=== PATIENT | female | born 1960 | race Caucasian/White ===

== ENCOUNTER → 2017-06-08 09:49 | Outpatient (CLI) | payer BC, SELFPAY ==
[2017-06-08 10:43] LABS: Hematocrit 34.9 % (37-47); Hemoglobin 11.5 g/dl (12.0-15.0); Mean Corpuscular Hgb 28.8 pg (27.0-32.0); Mean Corpuscular Volume 87.3 fL (81-99); Mean Platelet Vol. 11.4 fl (6.2-12.0); Platelet Count 306 K/mm3 (150-450); RBC Distribution Width CV 13.7 % (11.6-14.6); RBC Distribution Width SD 42.4 fl (35.1-43.9); White Blood Count 8.5 K/mm3 (4.4-11.0)
[2017-06-08 10:44] LABS: Scan Indicated on CBC? Y/N NO
[2017-06-08 11:10] LABS: Creatinine, Urine (random) < 13.00 mg/dL (NO RANGE EST.)
[2017-06-08 11:24] LABS: Albumin, Serum 3.8 g/dL (3.2-5.0); BUN 25 mg/dL (7-18); BUN/Creat Ratio 11.5 RATIO (10-20); Calcium,Total 9.1 mg/dL (8.5-10.1); Chloride 98 mmol/L (98-107); Creatinine, Serum 2.17 mg/dL (0.55-1.02); EST Glomerular Filtration Rate 25 mL/min (>60); Est Glom Filt Rate - Afr Amer 30 mL/min (>60); Glucose 94 mg/dL (74-106); Magnesium 1.6 mg/dL (1.6-2.6); Potassium 4.6 mmol/L (3.5-5.1); Sodium Level 132 mmol/L (136-145)
[2017-06-08 11:29] LABS: Vitamin D,25 Hydroxy 21.2 ng/mL (19.95-100.01)
[2017-06-08 11:30] LABS: PTHIN 190.4 pg/mL (18.4-80.1)
== END ==
PROVIDERS: Family Provider Family Medicine; PCP Family Medicine; Visit Provider Internal Medicine Nephrology
DX: N18.4 Chronic kidney disease, stage 4 (severe) (principal); D63.1 Anemia in chronic kidney disease; N25.81 Secondary hyperparathyroidism of renal origin; E83.42 Hypomagnesemia
CPT/HCPCS: 36415; 80069; 82043; 82306; 82570; 83735; 83970; 85027

== ENCOUNTER → 2017-11-08 08:40 | Outpatient (CLI) | payer BC, SELFPAY ==
[2017-11-08 09:11] LABS: Hematocrit 31.4 % (37-47); Hemoglobin 10.1 g/dl (12.0-15.0); Mean Corp Hgb Conc 32.2 g/gl (32-36); Mean Corpuscular Hgb 27.1 pg (27.0-32.0); Mean Corpuscular Volume 84.2 fL (81-99); Mean Platelet Vol. 10.4 fl (6.2-12.0); Platelet Count 362 K/mm3 (150-450); RBC Distribution Width CV 13.1 % (11.6-14.6); RBC Distribution Width SD 39.9 fl (35.1-43.9); Red Blood Count 3.73 M/mm3 (4.2-5.4); Scan Indicated on CBC? Y/N NO; White Blood Count 8.7 K/mm3 (4.4-11.0)
[2017-11-08 09:28] LABS: Creatinine, Urine (random) < 13.00 mg/dL (NO RANGE EST.); Protein, Urine (Random) 25.8 mg/dL (<11.9)
[2017-11-08 10:03] LABS: Albumin, Serum 3.5 g/dL (3.2-5.0); BUN 16 mg/dL (7-18); BUN/Creat Ratio 7.7 RATIO (10-20); Calcium,Total 7.9 mg/dL (8.5-10.1); Chloride 104 mmol/L (98-107); Creatinine, Serum 2.09 mg/dL (0.55-1.02); EST Glomerular Filtration Rate 26 mL/min (>60); Est Glom Filt Rate - Afr Amer 32 mL/min (>60); Glucose 78 mg/dL (74-106); Magnesium 0.7 mg/dL (1.6-2.6); Phosphorus 2.5 mg/dL (2.5-4.9); Potassium 3.6 mmol/L (3.5-5.1); Sodium Level 136 mmol/L (136-145)
[2017-11-09 09:06] LABS: Vitamin D,25 Hydroxy 39.3 ng/mL (29.95-100.01)
== END ==
PROVIDERS: Family Provider Family Medicine; PCP Family Medicine; Visit Provider Internal Medicine Nephrology
DX: N18.4 Chronic kidney disease, stage 4 (severe) (principal); D63.1 Anemia in chronic kidney disease; N25.81 Secondary hyperparathyroidism of renal origin; E83.42 Hypomagnesemia
CPT/HCPCS: 36415; 80069; 82306; 82570; 83735; 83970; 84156; 85027

== ENCOUNTER → 2017-11-18 08:28 | Outpatient (CLI) | payer BC, SELFPAY ==
[2017-11-18 10:37] LABS: Albumin, Serum 3.8 g/dL (3.2-5.0); BUN 34 mg/dL (7-18); BUN/Creat Ratio 15.2 RATIO (10-20); Calcium,Total 9.7 mg/dL (8.5-10.1); Chloride 105 mmol/L (98-107); Creatinine, Serum 2.23 mg/dL (0.55-1.02); EST Glomerular Filtration Rate 24 mL/min (>60); Est Glom Filt Rate - Afr Amer 29 mL/min (>60); Glucose 109 mg/dL (74-106); Magnesium 0.5 mg/dL (1.6-2.6); Potassium 3.7 mmol/L (3.5-5.1); Sodium Level 141 mmol/L (136-145)
== END ==
PROVIDERS: Family Provider Family Medicine; PCP Family Medicine; Visit Provider Internal Medicine Nephrology
DX: N05.1 Unspecified nephritic syndrome with focal and segmental glomerular lesions (principal)
CPT/HCPCS: 36415; 80069; 83735

== ENCOUNTER 2017-11-22 01:45 | Emergency (ER) | payer BC, SELFPAY ==
[2017-11-22 01:48] VITALS: BP 187/106; PULSE 82; RESP 18; TEMP 36.4; O2SAT 97; BMI 38.5
--- NOTE | 2017-11-22 02:07 | EKG12_ITS ---
Test Reason : DIZZYNESS Blood Pressure : / mmHG Vent. Rate : 065 BPM Atrial Rate : 065 BPM P-R Int : 146 ms QRS Dur : 084 ms QT Int : 394 ms P-R-T Axes : -01 -03 012 degrees QTc Int : 409 ms Normal sinus rhythm Normal ECG Confirmed by KRZYSZTOF ANTHONY, CELI ([id number]), associate entertainment editor LUISA XIE ([id number] on 11/24/2017 9:55:22 AM Referred By: Dania Falcon Confirmed By:CELI BLANKENSHIP MD
--- NOTE | 2017-11-22 02:17 | ED.DCSUM_ITS ---
- ER Visit Summary Date of Service: 11/22/17 Chief Complaint: Palpitations History of Present Illness: The patient is a 57 F after awakening at 8 PM this evening woke up with palpitations while walking fell off balance. No dizzy or spinning sensations. No chest pains. No syncopal episodes. No recent vomiting or diarrhea. States that urine frequency. No dysuria. Concerns positive that she has low magnesium. Found to have a magnesium 0.6 on the followed by Dr. Moreno from routine blood draws. She is asymptomatic. Placed on magnesium 3 times a day, recheck blood 3 days ago states magnesium 0.4. She was admitted overnight at [facility]. She is IV magnesium discharge and magnesium 2.0. She still is on magnesium replacement. She had transient tremors. Physical Examination: General: Alert and oriented ?3, no acute distress HEENT: Normocephalic, atraumatic. Moist mucosa membranes Neck: supple, nontender. Cardiovascular: Regular rate and rhythm, no murmurs Respiratory: Normal breath sounds, symmetric, no distress Abdomen: Soft, nontender, nondistended Extremities: Nontender, no edema, pulses intact ?4 Neuro: no focal neurological deficits. Test Results: EKG sinus rate of [address] changes. Flattening T waves in leads III. QTc 409. Hemoglobin 12. Creatinine 2.32. Potassium 5. Magnesium 2.7. Urine notes no infection. Emergency Department Course and Treatment: Patient given IV fluids, labs stable. Creatinine 2.32 today. Range from 2.09-2.23. Magnesium 2.7. Hemoglobin stable. Reevaluation patient ambulate department with no difficulties. Discussed with patient decrease her magnesium to twice a day from 3 times a day. 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 She will monitor for any recurrent tremors, likely a sympathetic response. She did have palpitations with her symptoms, normal EKG. Treatment Plan: [] Disposition: Discharge Impression: 1. Near syncope 2. Chronic kidney disease 3. Elevated blood pressure This note was generated with [employer] software. It may contain incorrect words, spelling, and punctuation that were not noted in review of the chart prior to signing ED Disposition - Plan for ED Patient: Disposition: Home or Assisted Living Chief Complaint: Dizziness Diagnosis: Near syncope, Chronic kidney disease, Elevated blood pressure Instructions: ED Near Syncope Vasovagal Referrals: Monster Freire MD [Primary Care Provider] - Henrique Clifton [NON-STAFF] - 3-5 Days Additional Instructions: Magnesium 2.7. Decrease your magnesium to twice a day. Creatinine today 2.32. Elevated blood pressure, check blood pressures at home, call Dr. Moreno for follow-up and adjustment of medications as needed.
[2017-11-22 02:56] LABS: Absolute Lymphocyte Count 2.02 X10^3/ul (0.83-4.51); Absolute Neutrophil Count 4.4 X10^3/uL (2.0-7.7); Basophil# 0.04 X10^3/uL; Basophil% 0.6 % (0-1); Eosinophil# 0.11 X10^3/uL; Eosinophils% 1.5 % (0-5); Hematocrit 36.7 % (37-47); Lymphocyte # 2.02 X10^3/ul (4.0); Lymphocyte % 28.4 % (19-41); Mean Corp Hgb Conc 32.7 g/gl (32-36); Mean Corpuscular Hgb 27.5 pg (27.0-32.0); Mean Platelet Vol. 11.3 fl (6.2-12.0); Monocyte# 0.52 X10^3/uL; Monocyte% 7.3 % (0-10); Neutrophil # 4.41 X10^3/uL (2.7-7.7); Neutrophil % 62.1 % (47-70); Platelet Count 358 K/mm3 (150-450); RBC Distribution Width CV 12.8 % (11.6-14.6); RBC Distribution Width SD 39.1 fl (35.1-43.9); Red Blood Count 4.37 M/mm3 (4.2-5.4); White Blood Count 7.1 K/mm3 (4.4-11.0)
[2017-11-22 03:01] LABS: POSITIVE COUNT NO; POSITIVE DIFFERENTIAL NO; POSITIVE MORPHOLOGY NO
[2017-11-22 03:10] LABS: Anion Gap 9 (5-15); BUN 30 mg/dL (7-18); BUN/Creat Ratio 12.9 RATIO (10-20); Calcium,Total 10.5 mg/dL (8.5-10.1); Chloride 105 mmol/L (98-107); Creatinine, Serum 2.32 mg/dL (0.55-1.02); EST Glomerular Filtration Rate 23 mL/min (>60); Est Glom Filt Rate - Afr Amer 28 mL/min (>60); Estimated Creatinine Clearance 22.66 ml/min; Glucose 97 mg/dL (74-106); Magnesium 2.7 mg/dL (1.6-2.6); Sodium Level 138 mmol/L (136-145)
[2017-11-22] MEDS: 0.9% Normal Saline 1,000 ML 1000 ML IV (03:11)
[2017-11-22 03:30] LABS: Bacteria 0 SEEN /hpf (None Seen); Mucous, Urine 0 SEEN /hpf (<or=2+); Red Blood Cells-Urine 0 SEEN /hpf (0-5); White Blood Cells 0 SEEN /hpf (0-5)
[2017-11-22 03:33] LABS: Color, Urine Yellow (Yellow); Glucose, Dipstick Normal (Normal); Ketone-Dipstick Negative (Negative); Leukocyte Esterase-Dipstick Negative /ul (Negative); Nitrite-Dipstick Negative (Negative); Occult Blood-Urine 10 /ul (Negative); Protein-Dipstick 100 mg/dl (Negative); Urine Bilirubin Dipstick Negative (Negative); Urine Clarity Clear (Clear); Urine Urobilinogen Normal (Normal)
[2017-11-22 03:39] LABS: Squamous Epithelial Cells - UA 0-5 SEEN /hpf (5-10)
[2017-11-22 04:30] VITALS: BP 150/96; PULSE 69; RESP 18; O2SAT 96
== END 2017-11-22 04:31 | disposition home or self-care (01) ==
PROVIDERS: Emergency Provider Emergency Medicine; Family Provider Family Medicine; PCP Family Medicine
DX: R55 Syncope and collapse (principal); I12.9 Hypertensive chronic kidney disease with stage 1 through stage 4 chronic kidney disease, or unspecified chronic kidney disease; N18.9 Chronic kidney disease, unspecified; E83.42 Hypomagnesemia; E03.9 Hypothyroidism, unspecified; K21.9 Gastro-esophageal reflux disease without esophagitis; Z72.0 Tobacco use; Z79.899 Other long term (current) drug therapy
CPT/HCPCS: 80048; 81001; 83735; 85025; 93005; 99284; J7030; A4216

== ENCOUNTER → 2018-04-03 09:40 | Outpatient (CLI) | payer BC, SELFPAY ==
[2018-04-03 10:22] LABS: Hematocrit 29.1 % (37-47); Hemoglobin 9.2 g/dl (12.0-15.0); Mean Corp Hgb Conc 31.6 g/gl (32-36); Mean Corpuscular Hgb 28.4 pg (27.0-32.0); Mean Corpuscular Volume 89.8 fL (81-99); Mean Platelet Vol. 10.8 fl (6.2-12.0); Platelet Count 358 K/mm3 (150-450); RBC Distribution Width CV 14.7 % (11.6-14.6); RBC Distribution Width SD 47.2 fl (35.1-43.9); Red Blood Count 3.24 M/mm3 (4.2-5.4); White Blood Count 8.4 K/mm3 (4.4-11.0)
[2018-04-03 10:23] LABS: Scan Indicated on CBC? Y/N NO
[2018-04-03 10:44] LABS: Microalbumin:Creatinine Ratio 681.3 mg/g CRE (<30 mg/g CRE)
[2018-04-03 10:52] LABS: Albumin, Serum 3.8 g/dL (3.2-5.0); BUN 38 mg/dL (7-18); BUN/Creat Ratio 9.2 RATIO (10-20); Calcium,Total 9.7 mg/dL (8.5-10.1); Chloride 104 mmol/L (98-107); Creatinine, Serum 4.13 mg/dL (0.55-1.02); EST Glomerular Filtration Rate 12 mL/min (>60); Est Glom Filt Rate - Afr Amer 14 mL/min (>60); Glucose 88 mg/dL (74-106); Magnesium 1.7 mg/dL (1.6-2.6); Phosphorus 4.6 mg/dL (2.5-4.9); Potassium 4.5 mmol/L (3.5-5.1); Sodium Level 135 mmol/L (136-145)
[2018-04-03 11:03] LABS: PTHIN 93.2 pg/mL (18.4-80.1)
== END ==
PROVIDERS: Family Provider Family Medicine; PCP Family Medicine; Referring Provider Internal Medicine Nephrology; Visit Provider Internal Medicine Nephrology
DX: N18.4 Chronic kidney disease, stage 4 (severe) (principal); D63.1 Anemia in chronic kidney disease; N25.81 Secondary hyperparathyroidism of renal origin; E83.42 Hypomagnesemia
CPT/HCPCS: 36415; 80069; 82043; 82306; 82570; 83735; 83970; 85027

== ENCOUNTER → 2018-04-10 10:00 | Outpatient (CLI) | payer BC, SELFPAY ==
[2018-04-10 10:44] LABS: Urine Sodium 25 mmol/L (Not Establ.)
--- OUTSIDE RECORDS SUMMARY | 2018-07-12 22:33 | XMS RPT_ITS ---
:1960 Author Organization OHIP Care Team Providers Name Role Phone Tanphaichitr, Natthavat Attending Unavailable Tanphaichitr, Natthavat Referring Unavailable Gunning, Monster Primary Care Unavailable Tanphaichitr, Natthavat Attending Unavailable Tanphaichitr, Natthavat Referring Unavailable Gunning, Monster Primary Care Unavailable Tanphaichitr, Natthavat Attending Unavailable Tanphaichitr, Natthavat Referring Unavailable Gunning, Monster Primary Care Unavailable Gunning, Monster Primary Care Unavailable Yang White Attending Unavailable Tanphaichitr, Natthavat Attending Unavailable Tanphaichitr, Natthavat Referring Unavailable Gunning, Monster Primary Care Unavailable Tanphaichitr, Natthavat Attending Unavailable Tanphaichitr, Natthavat Referring Unavailable Gunning, Monster Primary Care Unavailable Tanphaichitr, Natthavat Attending Unavailable Tanphaichitr, Natthavat Referring Unavailable Gunning, Monster Primary Care Unavailable AHMED, EREN CRUZ Attending Unavailable GUNNING, MONSTER H Referring Unavailable AHMED, EREN DOLANED Attending Unavailable AHMED, EREN MOHAMMED Referring Unavailable AHMED, EREN DOLANED Attending Unavailable Gunning, Monster Attending Unavailable UNKNOWN, PROVIDER Referring Unavailable Gunning, Monster Primary Care Unavailable Gunning, Monster Attending Unavailable UNKNOWN, PROVIDER Referring Unavailable Gunning, Monster Primary Care Unavailable UNKNOWN, PROVIDER Referring Unavailable Gunning, Monster Primary Care Unavailable Gunning, Monster Attending Unavailable GEMS, EDUARDO Attending Unavailable GUNNING, DEBORAH Primary Care Unavailable PROBLEMS PROBLEMS DATE TYPE CONDITION / CODE ATTENDING STATUS SOURCE Unknown N18.4 - Chronic kidney Tanphaichitr, Active [place] 8 disease, stage 4 [facility] (severe) / N18.4(ICD-10) Hospital Repository Unknown N17.9 - Acute kidney Tanphaichitr, Active [place] 8 failure, unspecified / [facility] N17.9(ICD-10) Hospital Repository Unknown D63.1 - Anemia in Tanphaichitr, Active [place] [facility] chronic kidney disease / [facility] D63.1(ICD-10) Hospital Repository Unknown 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, 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 / Hospital N25.81(ICD-10) Repository Unknown E83.42 - Hypomagnesemia Tanphaichitr, Active [place] [facility] / E83.42(ICD-10) [facility] Repository Active Esophagitis, unspecified AHMED, SHAMEEM Active [place] [facility] / K20.9(ICD-10) [facility] [place] Repository Active Upper abdominal pain, AHMED, SHAMEEM Active [place] 8 unspecified / [facility] R10.10(ICD-10) [place] Repository Active Epigastric abdominal AHMED, SHAMEEM Active [place] 8 tenderness / [facility] R10.816(ICD-10) [place] Repository Active Diaphragmatic hernia AHMED, SHAMEEM Active [place] 8 without obstruction or [facility] gangrene / K44.9(ICD-10) [place] Repository Active Other specified symptoms AHMED, SHAMEEM Active [place] 8 and signs involving the [facility] Main digestive system and [place] abdomen / R19.8(ICD-10) Repository Active Unspecified chronic AHMED, SHAMEEM Active [place] 8 gastritis without [facility] Main bleeding / [place] K29.50(ICD-10) Repository Active Unknown / UNK(Unknown) NA Active [place] 8 Clinic Other [place] Repository Admitting Unknown / UNK(Unknown) [employer] Active [facility] 8 diagnosis Health System Repository Admitting Hypomagnesemia / Gunning, Active [employer] 8 Diagnosis E83.42(ICD-10) [facility] Repository Admitting Acute kidney failure, Gunning, Active [employer] 8 Diagnosis unspecified / [facility] N17.9(ICD-10) Repository Admitting Chronic obstructive Gunning, Active [employer] 8 Diagnosis pulmonary disease, [facility] unspecified / Repository J44.9(ICD-10) Admitting Hyperlipidemia, Gunning, Active [employer] 8 Diagnosis unspecified / [facility] E78.5(ICD-10) Repository Admitting Nicotine dependence, Gunning, Active [employer] 8 Diagnosis cigarettes, [facility] uncomplicated / Repository F17.210(ICD-10) Admitting Noninfective Gunning, Active [facility] 8 Diagnosis gastroenteritis and [facility] colitis, unspecified / Repository K52.9(ICD-10) Admitting Hypertensive chronic Gunning, Active [facility] 8 Diagnosis kidney disease w stg [facility] 1-4/unsp chr kdny / Repository I12.9(ICD-10) Admitting Gastro-esophageal reflux Gunning, Active [facility] 8 Diagnosis disease without [facility] esophagitis / Repository K21.9(ICD-10) Admitting Anemia, unspecified / Gunning, Active [facility] 8 Diagnosis D64.9(ICD-10) [facility] Repository Admitting Chronic kidney disease, Gunning, Active [facility] 8 Diagnosis stage 3 (moderate) / [facility] N18.3(ICD-10) Repository Admitting Acquired absence of both Gunning, 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 / [facility] Z90.710(ICD-10) Repository Unknown 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, 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 / Repository N05.1(ICD-10) 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, Active [facility] 8 Diagnosis perforation or abscess [facility] w/o bleeding / Repository K57.30(ICD-10) Admitting Other specified Gunning, Active [facility] 8 Diagnosis disorders of kidney and [facility] ureter / N28.89(ICD-10) Repository Admitting Hepatomegaly, not Gunning, Active [facility] 8 Diagnosis elsewhere classified / [facility] R16.0(ICD-10) Repository Admitting Disorder of kidney and Gunning, Active [facility] 8 Diagnosis ureter, unspecified / [facility] N28.9(ICD-10) Repository PROCEDURES PROCEDURES No Procedure Records FoundRESULTS RESULTS RENAL PROFILE Collected: 04/24/2018 Status: F Source: [place] 10:57 AM [facility] REPOSITORY TYPE CODE TESTS RESULT OUT OF RANGE REFERENCE UNITS LAB L501.0100 74-106 mg/dL Normal GLU 95 Result Comment: Please note revised GLUCOSE reference range effective 2017. LAB L501.1000 7-18 mg/dL High BUN 29 LAB L501.1100 0.55-1.02 mg/dL High CREAT,SERUM 3.92 Result Comment: The validity of the calculated GFR AND GFRAA in patients over 70 years has not been determined. Clinical correlation is essential. LAB L501.1110 >60 mL/min Low EST GFR 13 Result Comment: Non- GFR Calc LAB L501.1115 >60 mL/min Low EST GFR - AA 15 Result Comment: GFR Calc LAB L501.1300 10-20 RATIO Low BUN/CRE 7.4 LAB L501.1800 3.2-5.0 g/dL Normal ALB 3.9 LAB L501.2200 8.5-10.1 mg/dL Normal CA 10.1 LAB L501.2300 2.5-4.9 mg/dL Normal PHOS 3.6 LAB L501.5300 136-145 mmol/L Normal NA 136 LAB L501.5600 3.5-5.1 mmol/L Normal K 4.7 LAB L501.5900 98-107 mmol/L Normal CL 104 LAB L501.6100 21.0-32.0 mmol/L Normal CO2 21.0 Performed By: #### L500.3600 #### [facility] [address] [place], [address] CREATININE, URINE Collected: 04/10/2018 Status: F Source: [place] ([place]OM) 10:07 AM [facility] REPOSITORY TYPE CODE TESTS RESULT OUT OF RANGE REFERENCE UNITS LAB L501.1200 NO RANGE EST. mg/dL Normal UR CREAT 26.80 Performed By: #### L501.1200, L501.5500 #### [facility] [address] [place], [address] URINE SODIUM Collected: 04/10/2018 Status: F Source: [place] 10:07 AM [facility] REPOSITORY TYPE CODE TESTS RESULT OUT OF RANGE REFERENCE UNITS LAB L501.5500 Not Establ. mmol/L Normal UR NA 25 Performed By: #### L501.1200, L501.5500 #### [facility] [address] [facility] [place], [address] CBC-COMPLETE BLOOD CNT Collected: 04/03/2018 Status: F Source: [place] NO DIFF 9:45 AM [facility] REPOSITORY TYPE CODE TESTS RESULT OUT OF RANGE REFERENCE UNITS LAB L100.1000 4.4-11.0 K/mm3 Normal WBC 8.4 LAB L100.1200 4.2-5.4 M/mm3 Low RBC 3.24 LAB L100.1300 12.0-15.0 g/dl Low HGB 9.2 LAB L100.1400 37-47 % Low HCT 29.1 LAB L100.1500 81-99 fL Normal MCV 89.8 LAB L100.1600 27.0-32.0 pg Normal MCH 28.4 LAB L100.1700 32-36 g/gl Low MCHC 31.6 LAB L100.1810 11.6-14.6 % High RDW CV 14.7 LAB L100.1820 35.1-43.9 fl High RDW SD 47.2 LAB L100.1900 150-450 K/mm3 Normal PLT 358 LAB L100.2000 6.2-12.0 fl Normal MPV 10.8 Performed By: #### L100.0500 #### [facility] [address] [facility] [place], [address] MICROALB:CREAT Collected: 04/03/2018 Status: F Source: [place] RATIO,RANDOM UR 9:45 AM [facility] REPOSITORY TYPE CODE TESTS RESULT OUT OF RANGE REFERENCE UNITS LAB L501.1200 NO RANGE EST. mg/dL Normal UR CREAT 18.20 LAB L502.0500 NO RANGE EST. mg/L Normal 124.0 MICROALBUMIN ,UR LAB L502.0600 <30 mg/g CRE mg/g CRE High 681.3 MALB:CREAT Performed By: #### L502.0250 #### [facility] [address] [facility] [place], [place], [id number] RENAL PROFILE Collected: 04/03/2018 Status: F Source: [place] 9:45 AM [facility] REPOSITORY TYPE CODE TESTS RESULT OUT OF RANGE REFERENCE UNITS LAB L501.0100 74-106 mg/dL Normal GLU 88 Result Comment: Please note revised GLUCOSE reference range effective 2017. LAB L501.1000 7-18 mg/dL High BUN 38 LAB L501.1100 0.55-1.02 mg/dL High CREAT,SERUM 4.13 Result Comment: The validity of the calculated GFR AND GFRAA in patients over 70 years has not been determined. Clinical correlation is essential. LAB L501.1110 >60 mL/min Low EST GFR 12 Result Comment: Non- GFR Calc LAB L501.1115 >60 mL/min Low EST GFR - AA 14 Result Comment: GFR Calc LAB L501.1300 10-20 RATIO Low BUN/CRE 9.2 LAB L501.1800 3.2-5.0 g/dL Normal ALB 3.8 LAB L501.2200 8.5-10.1 mg/dL Normal CA 9.7 LAB L501.2300 2.5-4.9 mg/dL Normal PHOS 4.6 LAB L501.5300 136-145 mmol/L Low NA 135 LAB L501.5600 3.5-5.1 mmol/L Normal K 4.5 LAB L501.5900 98-107 mmol/L Normal CL 104 LAB L501.6100 21.0-32.0 mmol/L Normal CO2 21.0 Performed By: #### L500.3600, L501.5200 #### [facility] [address] [facility] [place], [place], [address] MAGNESIUM Collected: 04/03/2018 Status: F Source: [place] 9:45 AM [facility] REPOSITORY TYPE CODE TESTS RESULT OUT OF RANGE REFERENCE UNITS LAB L501.5200 1.6-2.6 mg/dL Normal MG 1.7 Performed By: #### L500.3600, L501.5200 #### [facility] [address] [place], [address] VITAMIN D,25 HYDROXY Collected: 04/03/2018 Status: F Source: [place] 9:45 AM [facility] REPOSITORY TYPE CODE TESTS RESULT OUT OF RANGE REFERENCE UNITS LAB L506.1000 29.95-100.01 ng/mL Normal Vitamin D 38.0 25-OH Result Comment: Vitamin D 25(OH) Status Range Deficiency <20 ng/mL (50nmol/L) Insuffciency 20 - 30 ng/mL (50 - 75 nmol/L) Sufficiency 30 - 100 ng/mL (75 - 250 nmol/L) Toxicity >100 ng/mL (>250 nmol/L) Performed By: #### L506.1000 #### [facility] [address] [place], [address] PTHIN Collected: 04/03/2018 Status: F Source: [place] 9:45 AM [facility] REPOSITORY TYPE CODE TESTS RESULT OUT OF RANGE REFERENCE UNITS LAB L509.1000 18.4-80.1 pg/mL High PTHIN 93.2 Performed By: #### L509.1000 #### [facility] [address] [place], [address] PROGRESS Observed: 03/31/2018 Status: COMPLETED Source: [place] 10:36 AM [facility] REPOSITORY HNO ID: [id number] Author: Eren Malone Service: (none) Author Type: Physician Type: Progress Notes Filed: 03/31/2018 11:20 AM Note Text: CANDE Coyle is a 58 year old female here today for Procedure Follow Up (EGD - Abdominal Pain). GERD symptoms better, upper abdominal pain improved, night time reflux still present, eructations Record Review: [facility] records reviewed Current Outpatient Prescriptions: famotidine (PEPCID) 20 mg tablet Take 20 mg by mouth once daily. acetaminophen (TYLENOL) 325 mg tablet Take 650 mg by mouth. amLODIPine (NORVASC) 5 mg tablet levothyroxine (SYNTHROID) 50 mcg tablet Take 50 mcg by mouth once daily. losartan (COZAAR) 50 mg tablet Take 100 mg by mouth once daily. calcitriol (ROCALTROL) 0.25 mcg capsule TAKE 2 CAPSULE ONCE A DAY ORALLY 90 DAYS magnesium oxide (MAG-OX) 400 mg tablet Take 1 tablet by mouth twice daily. Fenofibric Acid 105 mg tab Take 1 tablet by mouth once daily. ergocalciferol, vitamin D2, (VITAMIN D2 ORAL) Take by mouth once daily. omeprazole (PRILOSEC) 20 mg capsule Take 1 capsule by mouth twice daily. peg 3350-Electrolytes (GOLYTELY) 236-22.74-6.74 -5.86 gram suspension Refer to printed patient instructions that will be mailed to you. No current facility-administered medications for this visit. ALLERGIES Allergen Reactions - Avelox [Moxifloxaci* Unknown - Codeine Unknown - Dilaudid [Hydromorp* Unknown - Morphine Unknown - Penicillins Unknown - Percocet [Oxycodone* Unknown Social History Substance Use Topics - Smoking status: Current Every Day Smoker Types: Cigarettes - Smokeless tobacco: Never Used - Alcohol use No PAST MEDICAL HISTORY Diagnosis Date - Abnormal renal function - COPD (chronic obstructive pulmonary disease) (HCC) - GERD (gastroesophageal reflux disease) - History of colon polyps - History of rectal bleeding - HTN (hypertension) - Hyperlipidemia - Hypothyroid - Kidney damage scar tissue PAST SURGICAL HISTORY Procedure Laterality Date - COLONOSCOPY 05/13/2011 Hyperplastic Polyps x2 Benign - EGD 05/07/2011 patient unsure of having this procedure - EGD 01/19/2018 - PAST SURGICAL HISTORY OF 2008 Hysterectomy - PAST SURGICAL HISTORY OF 2015 Torn menicus repair FAMILY HISTORY Problem Relation Age of Onset - Hypertension Mother - Diabetes Mother - Hypertension Father - Diabetes Father REVIEW OF SYSTEMS Review of Systems Gastrointestinal: Positive for diarrhea. All other systems reviewed and are negative. PHYSICAL EXAM BP 128/70 Pulse 69 Ht 160 cm (5' 3) Wt 99.3 kg (219 lb) SpO2 98% BMI 38.79 kg/m? BMI 38.79 kg/(m2) Physical Exam Constitutional: She is oriented to person, place, and time and well-developed, well-nourished, and in no distress. HENT: Head: Normocephalic and atraumatic. Eyes: Conjunctivae are normal. No scleral icterus. Neck: Neck supple. Cardiovascular: Normal rate, regular rhythm and normal heart sounds. Pulmonary/Chest: Effort normal and breath sounds normal. Abdominal: Soft. Bowel sounds are normal. There is tenderness. Epigastric abdominal tenderness Musculoskeletal: She exhibits no edema. Neurological: She is alert and oriented to person, place, and time. Gait normal. Skin: Skin is warm and dry. Psychiatric: Mood, memory, affect and judgment normal. Assessment/Plan: Catarina was seen today for procedure follow up. Diagnoses and all orders for this visit: Acute esophagitis Hiatal hernia Gastritis, bile acid reflux History of colonic polyps - COLONOSCOPY, SCREENING, HIGH RISK; Future - peg 3350-Electrolytes (GOLYTELY) 236-22.74-6.74 -5.86 gram suspension; Refer to printed patient instructions that will be mailed to you. Other orders - omeprazole (PRILOSEC) 20 mg capsule; Take 1 capsule by mouth twice daily. I have confirmed and edited as necessary, the PFSH and ROS obtained by others. Eren Malone MD DATE: 03/31/18 TIME: 10:36 AM CNOV Observed: 03/31/2018 Status: COMPLETED Source: [place] 9:45 AM [facility] REPOSITORY Office Visit ([facility]) CATARINA COYLE ([id number]) 1960 F Date Time Provider Department 03/31/18 9:45 AM EREN MALONE [facility] During your visit today, we recorded the following information about you: Pulse Blood pressure Weight Height 69/minute 128/70 99.3 kg 1.6 m Eren Malone MD 03/31/2018 11:20 AM Addendum HPI Catarina Coyel is a 58 year old female here today for Procedure Follow Up (EGD - Abdominal Pain). GERD symptoms better, upper abdominal pain improved, night time reflux still present, eructations Record Review: [facility] records reviewed Current Outpatient Prescriptions: famotidine (PEPCID) 20 mg tablet Take 20 mg by mouth once daily. acetaminophen (TYLENOL) 325 mg tablet Take 650 mg by mouth. amLODIPine (NORVASC) 5 mg tablet levothyroxine (SYNTHROID) 50 mcg tablet Take 50 mcg by mouth once daily. losartan (COZAAR) 50 mg tablet Take 100 mg by mouth once daily. calcitriol (ROCALTROL) 0.25 mcg capsule TAKE 2 CAPSULE ONCE A DAY ORALLY 90 DAYS magnesium oxide (MAG-OX) 400 mg tablet Take 1 tablet by mouth twice daily. Fenofibric Acid 105 mg tab Take 1 tablet by mouth once daily. ergocalciferol, vitamin D2, (VITAMIN D2 ORAL) Take by mouth once daily. omeprazole (PRILOSEC) 20 mg capsule Take 1 capsule by mouth twice daily. peg 3350-Electrolytes (GOLYTELY) 236-22.74-6.74 -5.86 gram suspension Refer to printed patient instructions that will be mailed to you. No current facility-administered medications for this visit. ALLERGIES Allergen Reactions - Avelox [Moxifloxaci* Unknown - Codeine Unknown - Dilaudid [Hydromorp* Unknown - Morphine Unknown - Penicillins Unknown - Percocet [Oxycodone* Unknown Social History Substance Use Topics - Smoking status: Current Every Day Smoker Types: Cigarettes - Smokeless tobacco: Never Used - Alcohol use No PAST MEDICAL HISTORY Diagnosis Date - Abnormal renal function - COPD (chronic obstructive pulmonary disease) (HCC) - GERD (gastroesophageal reflux disease) - History of colon polyps - History of rectal bleeding - HTN (hypertension) - Hyperlipidemia - Hypothyroid - Kidney damage scar tissue PAST SURGICAL HISTORY Procedure Laterality Date - COLONOSCOPY 05/13/2011 Hyperplastic Polyps x2 Benign - EGD 05/07/2011 patient unsure of having this procedure - EGD 01/19/2018 - PAST SURGICAL HISTORY OF 2008 Hysterectomy - PAST SURGICAL HISTORY OF 2015 Torn menicus repair FAMILY HISTORY Problem Relation Age of Onset - Hypertension Mother - Diabetes Mother - Hypertension Father - Diabetes Father REVIEW OF SYSTEMS Review of Systems Gastrointestinal: Positive for diarrhea. All other systems reviewed and are negative. PHYSICAL EXAM BP 128/70 Pulse 69 Ht 160 cm (5' 3) Wt 99.3 kg (219 lb) SpO2 98% BMI 38.79 kg/m? BMI 38.79 kg/(m2) Physical Exam Constitutional: She is oriented to person, place, and time and well-developed, well-nourished, and in no distress. HENT: Head: Normocephalic and atraumatic. Eyes: Conjunctivae are normal. No scleral icterus. Neck: Neck supple. Cardiovascular: Normal rate, regular rhythm and normal heart sounds. Pulmonary/Chest: Effort normal and breath sounds normal. Abdominal: Soft. Bowel sounds are normal. There is tenderness. Epigastric abdominal tenderness Musculoskeletal: She exhibits no edema. Neurological: She is alert and oriented to person, place, and time. Gait normal. Skin: Skin is warm and dry. Psychiatric: Mood, memory, affect and judgment normal. Assessment/Plan: Catarina was seen today for procedure follow up. Diagnoses and all orders for this visit: Acute esophagitis Hiatal hernia Gastritis, bile acid reflux History of colonic polyps - COLONOSCOPY, SCREENING, HIGH RISK; Future - peg 3350-Electrolytes (GOLYTELY) 236-22.74-6.74 -5.86 gram suspension; Refer to printed patient instructions that will be mailed to you. Other orders - omeprazole (PRILOSEC) 20 mg capsule; Take 1 capsule by mouth twice daily. I have confirmed and edited as necessary, the PFSH and ROS obtained by others. Eren Malone MD DATE: 03/31/18 TIME: 10:36 AM Eren Malone MD 03/31/2018 11:20 AM Signed Addended by: EREN MALONE MD on: 03/31/2018 11:20 AM Modules accepted: Orders Referring Provider: SELF [[id number]] Allergies As of Date: 03/31/2018 Noted Allergy Reaction AVELOX (MOXIFLOXACIN HCL) 10/17/2017 16 - Unknown CODEINE 10/17/2017 16 - Unknown DILAUDID (HYDROMORPHONE (BULK)) 10/17/2017 16 - Unknown MORPHINE 10/17/2017 16 - Unknown PENICILLINS 10/17/2017 16 - Unknown PERCOCET (OXYCODONE-ACETAMINOPHEN)10/17/2017 16 - Unknown Date Reviewed: 03/31/2018 Reviewed by: Eren Malone - Fully Assessed Reason for Visit: Procedure Follow Up [1139] Cmt: EGD - Abdominal Pain Reason For Visit History Recorded Primary Visit Diagnosis:Acute esophagitis [K20.9] Other Visit Diagnoses:Hiatal hernia [K44.9] Gastritis, bile acid reflux [K29.60] History of colonic polyps [Z86.010] Order(s):omeprazole (PRILOSEC) 20 mg capsuleTake 1 capsule by mouth twice daily.Disp: 60 capsuleRfl: 5 COLONOSCOPY, SCREENING, HIGH RISK [[id number]] Order #: [id number] FUTURE peg 3350-Electrolytes (GOLYTELY) 236-22.74-6.74 - 5.86 gram suspensionRefer to printed patient instructions that will be mailed to you.Disp: 1 ContainerRfl: 0 Prescriptions as of 03/31/2018 Sig: FAMOTIDINE 20 MG TABLET Take 20 mg by mouth once jericho* ACETAMINOPHEN 325 MG TABLET Take 650 mg by mouth. AMLODIPINE 5 MG TABLET LEVOTHYROXINE 50 MCG TABLET Take 50 mcg by mouth once sumaya* LOSARTAN 50 MG TABLET Take 100 mg by mouth once sumaay* CALCITRIOL 0.25 MCG CAPSULE TAKE 2 CAPSULE ONCE A DAY ORA* MAGNESIUM OXIDE 400 MG (241.3* Take 1 tablet by mouth twice * FENOFIBRIC ACID 105 MG TABLET Take 1 tablet by mouth once d* VITAMIN D2 ORAL Take by mouth once daily. OMEPRAZOLE 20 MG CAPSULE,AMY* Take 1 capsule by mouth twice* PEG 3350-ELECTROLYTES 236 GRA* Refer to printed patient inst* Problem List As Of Date: 03/31/2018 (None) Prescriptions ordered this encounter Disp Refills Start End OMEPRAZOLE 20 MG CAPSULE,DELAYED REL* 60 c* 5 03/31/2018 Route: ORAL Sig: Take 1 capsule by mouth twice daily. PEG 3350-ELECTROLYTES 236 GRAM-22.74* 1 Co* 0 03/31/2018 Sig: Refer to printed patient instructions that will be mailed to you. Medications Discontinued During This Encounter amLODIPine (NORVASC) 2.5 mg tablet 4 09/08/2017 03/31/2018 Class: Historical Med Sig: TAKE 1 TABLET BY MOUTH ONCE DAILY ONCE A DAY ORALLY 90 DAYS Disc: Changing Therapy/Dosage Form ergocalciferol, vitamin D2, (DRISDOL* 12/03/2017 03/31/2018 Class: Historical Med Sig: Disc: Duplicate Entry traMADol (ULTRAM) 50 mg tablet 0 08/29/2017 03/31/2018 Class: Historical Med Sig: Disc: Course of therapy completed pantoprazole DR (PROTONIX) 40 mg tab* 60 t* 3 01/19/2018 03/31/2018 Route: ORAL Sig: Take 1 tablet by mouth twice daily. Disc: Side Effects pantoprazole DR (PROTONIX) 20 mg tab* 3 02/28/2018 03/31/2018 Class: Historical Med Route: ORAL Sig: Take 20 mg by mouth twice daily. Disc: Side Effects Encounter Status:Closed by EREN MALONE MD on 03/31/18 CNCO Observed: 03/31/2018 Status: COMPLETED Source: [place] 12:00 AM [facility] REPOSITORY Letter Text COLONOSCOPY-GOLYTELY NO SOLID FOOD THE DAY BEFORE THIS EXAM Appointment Date: Tuesday at 10:00 am Facility: [facility] Gastroenterology/Endoscopy [address] [place] [address] Arrive At: 9:15 AM Special Instructions: N/A You must have a responsible adult to drive you home and assist you at home while you finish recovering from your sedation. Please bring only one person with you. Bring a list of your medications, insurance card and service car driver's license. Arrive 30-45 minutes before your procedure time. Purchase at the Pharmacy: Fill prescription for Golytely and 4 Dulcolax tablets. THE DAY BEFORE YOUR EXAM: 1. FOLLOW A CLEAR LIQUID DIET ALL DAY. 2. At 1:00PM, take 4 Dulcolax tablets. 3. At 5:00PM, start drinking solution. Drink a total of eight 8 oz glasses, one every 15-20 minutes. Please put the rest of the solution in the refrigerator for tomorrow morning. THE DAY OF YOUR EXAM 1. At 6:00 AM (four hours before your procedure) : drink one 8 oz glass every 15-20 minutes. Drink a total of four 8 oz glasses. Discard the remainder of the solution. 2. DO NOT DRINK ANYTHING ELSE AFTER THIS STEP IS COMPLETED. Nothing by mouth including clear liquids, food, gum and hard candy. 5 DAYS BEFORE EXAM STOP TAKING ASPIRIN OR ASPIRIN CONTAINING PRODUCTS, VITAMIN E AND IRON, BLOOD THINNERS SUCH COUMADIN, PLAVIX, AGGRENOX. DIABETICS ONLY Take only 1/2 of your daily dose of insulin or tablets the day before your exam. Do not take any more of your diabetic medications until the procedure is over and you have resumed eating again. Drink regular liquids, not diabetic and monitor your sugar throughout the day you are on clear liquids. If your sugar gets too low, drink some apple juice. It is very important that you drink all of the solution that we tell you to drink, if you do not complete the prep, your procedure may be cancelled. Any questions, please call our office at [phone] Ext [phone], [phone] or [phone]. SURGICAL PATHOLOGY Observed: 01/19/2018 Status: F Source: [place] 10:53 AM [facility] REPOSITORY Specimen originated from [facility] Specimen #: [id number] Submitting Physician: EREN MALONE FINAL DIAGNOSIS Gastric antrum, biopsy - Reactive gastropathy. - No morphologic evidence of H. pylori organisms. JJ/batsheva 01/23/2018 Gloria Salcedo M.D. (Electronic Signature) SPECIMEN SUBMITTED A: ANTRUM, BIOPSY CLINICAL DATA pain GROSS DESCRIPTION A. Received in formalin are four pieces of miller, soft tissue aggregating to 1.4 x 0.2 x 0.2 cm. Totally submitted in one cassette. Gross examination performed at [facility], [address] [place] [address] 01/20/2018 1:37:12 AM Date of Report: 01/23/2018 Date of Procedure: 01/19/2018 Date of Receipt: 01/19/2018 Submitted by: EREN MALONE Location: [facility] Diagnostic interpretation performed at [facility], [address] [place] [address]. HISTORY PHYSICAL Observed: 01/19/2018 Status: COMPLETED Source: [place] 10:29 AM [facility] REPOSITORY O ID: [id number] Author: Eren Malone Service: (none) Author Type: Physician Type: HANDP Filed: 01/19/2018 10:53 AM Note Text: HISTORY AND PHYSICAL Catarina Coyle, 57 year old female here for EGD to evaluate epigastric pain Current history and physical on file: Yes Is a new History and Physical required for today's visit? No Indication for procedure: Abdominal pain PROCEDURE(S) SCHEDULED FOR: EGD (Esophagogastroduodenoscopy) with or without biopsies, removal of polyps or lesions, dilation ( any means), treatment of bleeding ( any means), Barrx treatment of Vinod's Esophagus, image tube placement or cryo therapy treatment based on clinical findings. BASELINE BEHAVIOR: Calm BASELINE ORIENTATION: A AND O x3 All medications and allergies reviewed: Yes Skin Assessment: Warm dry muscus membranes pink Airway/Respiratory Assessment: Airway: visualization of the uvula- Yes Mouth: opening greater than 2 fingerbreadths- Yes Neck: full range of motion- Yes Breath sounds clear/equal- Yes Cardiac Assessment: Regular rate and rhythm without murmur Abdominal Assessment: Abdomen soft, non-tender, no masses or organomegaly. Sedation Plan: Deep Additional Comments: None Eren Malone MD 12 LEAD ELECTROCARDIOGRAM Observed: 11/24/2017 Status: F Source: [place] 9:55 AM [facility] Cardiovascular Services [address] [place] [address] 12 Lead EKG 11/22/17 0229 MR#: [id number] Acct: [id number] Name: CATARINA COYLE Rep #: [id number] : 1960 57 From: Red Blankenship MD Attending Dr: Status: DEP ER Ordering Dr: Yang White DO Date: 11/22/17 Location: ED Sex: F C Admitted: Test Reason : DIZZYNESS Blood Pressure : / mmHG Vent. Rate : 065 BPM Atrial Rate : 065 BPM P-R Int : 146 ms QRS Dur : 084 ms QT Int : 394 ms P-R-T Axes : -01 -03 012 degrees QTc Int : 409 ms Normal sinus rhythm Normal ECG Confirmed by KRZYSZTOF ANTHONY, RED ([id number]), editor managing newspaper LUIAS XIE ([id number]) on 11/24/2017 9:55:22 AM Referred By: Dania Falcon Confirmed By:RED BLANKENSHIP MD 11/24/17 0955 Date Red Blankenship MD CC: Monster Lackey MD; Yang White Signed EMERGENCY DEPARTMENT Observed: 11/22/2017 Status: F Source: [place] SUMMARY 4:00 AM [facility] Medical Records Department [address] [place] [address] Emergency Department Summary 11/22/17 0216 MR#: [id number] Acct: [id number] Name: CATARINA COYLE Rep #: [id number] : 1960 57 From: Yang Cindy MILIAN PCP: Monster Lackey MD Status: REG ER - ER Visit Summary Date of Service: 11/22/17 Chief Complaint: Palpitations History of Present Illness: The patient is a 57 F after awakening at 8 PM this evening woke up with palpitations while walking fell off balance. No dizzy or spinning sensations. No chest pains. No syncopal episodes. No recent vomiting or diarrhea. States that urine frequency. No dysuria. Concerns positive that she has low magnesium. Found to have a magnesium 0.6 on the followed by Dr. Miller from routine blood draws. She is asymptomatic. Placed on magnesium 3 times a day, recheck blood 3 days ago states magnesium 0.4. She was admitted overnight at [facility]. She is IV magnesium discharge and magnesium 2.0. She still is on magnesium replacement. She had transient tremors. Physical Examination: General: Alert and oriented 3, no acute distress HEENT: Normocephalic, atraumatic. Moist mucosa membranes Neck: supple, nontender. Cardiovascular: Regular rate and rhythm, no murmurs Respiratory: Normal breath sounds, symmetric, no distress Abdomen: Soft, nontender, nondistended Extremities: Nontender, no edema, pulses intact 4 Neuro: no focal neurological deficits. Test Results: EKG sinus rate of [address] changes. Flattening T waves in leads III. QTc 409. Hemoglobin 12. Creatinine 2.32. Potassium 5. Magnesium 2.7. Urine notes no infection. Emergency Department Course and Treatment: Patient given IV fluids, labs stable. Creatinine 2.32 today. Range from 2.09-2.23. Magnesium 2.7. Hemoglobin stable. Reevaluation patient ambulate department with no difficulties. Discussed with patient decrease her magnesium to twice a day from 3 times a day. She did have elevated blood pressure in the ED, she will monitor this, she will follow-up with her twister doffer rediscussion and further management as needed. She will monitor for any recurrent tremors, likely a sympathetic response. She did have palpitations with her symptoms, normal EKG. Treatment Plan: [] Disposition: Discharge Impression: 1. Near syncope 2. Chronic kidney disease 3. Elevated blood pressure This note was generated with Eight19 dictation software. It may contain incorrect words, spelling, and punctuation that were not noted in review of the chart prior to signing ED Disposition - Plan for ED Patient: Disposition: Home or Assisted Living Chief Complaint: Dizziness Diagnosis: Near syncope, Chronic kidney disease, Elevated blood pressure Instructions: ED Near Syncope Vasovagal Referrals: Monster Lackey MD [Primary Care Provider] - Henrique Clifton [NON-STAFF] - 3-5 Days Additional Instructions: Magnesium 2.7. Decrease your magnesium to twice a day. Creatinine today 2.32. Elevated blood pressure, check blood pressures at home, call Dr. Miller for follow-up and adjustment of medications as needed. What to do if you have Problems For any increased pain, shortness of breath, bleeding, nausea or vomiting, chest pain, or any unexpected problems, contact your Primary Care Provider. Call [facility] ([phone]) or report to the closest Emergency Room. Call 911 if necessary. 11/22/17 0400 <Electronically signed by Ynag Zarate> Date Yang Zarate Cosigner Signature (If Indicated): Date CC: Monster Lackey MD URINALYSIS, COMPLETE Collected: 11/22/2017 Status: F Source: [place] 3:20 AM [facility] REPOSITORY Order Comment: Order Date: 11/22/17 How was Urine Obtained? CLEAN CATCH TYPE CODE TESTS RESULT OUT OF RANGE REFERENCE UNITS LAB L400.3000 Yellow COLOR Normal Yellow LAB L400.3050 Clear Normal CLARITY Clear LAB L400.3200 Normal mg/dl Normal GLUCOSE, UR Normal LAB L400.3300 Negative mg/dL Normal BILIRUBIN URINE Negative LAB L400.3400 Negative mg/dl Normal KETONE UR Negative LAB L400.3465 1.002-1.030 Normal SP.GR. DIPSTX 1.010 LAB L400.3550 5.0 - 8.0 pH UR Normal 7.0 LAB L400.3600 Negative mg/dl High PROT DIPSTX 100 LAB L400.3700 Normal mg/dl Normal UROBILI Normal LAB L400.3750 Negative Normal NITRITE UR Negative LAB L400.3780 Negative /ul High 10 OCCULT BLOOD-UR LAB L400.3800 Negative /ul LEUK Normal ESTERASE Negative LAB L400.4050 0-5 /hpf WBC 0 Normal SEEN LAB L400.4100 0-5 /hpf 0 Normal RBC-UA SEEN LAB L400.4150 5-10 /hpf SQUAM Normal EPI 0-5 SEEN LAB L400.4300 None Seen /hpf 0 Normal BACTERIA SEEN LAB L400.4350 <or=2+ /hpf 0 Normal MUCUS, URINE SEEN Performed By: #### L400.0001 #### [facility] [address] [place], [address] CBC W/DIFF, AUTOMATED Collected: 11/22/2017 Status: F Source: [place] 2:30 AM [facility] REPOSITORY TYPE CODE TESTS RESULT OUT OF RANGE REFERENCE UNITS LAB L100.1000 4.4-11.0 K/mm3 Normal WBC 7.1 LAB L100.1200 4.2-5.4 M/mm3 Normal RBC 4.37 LAB L100.1300 12.0-15.0 g/dl Normal HGB 12.0 LAB L100.1400 37-47 % Low HCT 36.7 LAB L100.1500 81-99 fL Normal MCV 84.0 LAB L100.1600 27.0-32.0 pg Normal MCH 27.5 LAB L100.1700 32-36 g/gl Normal MCHC 32.7 LAB L100.1810 11.6-14.6 % Normal RDW CV 12.8 LAB L100.1820 35.1-43.9 fl Normal RDW SD 39.1 LAB L100.1900 150-450 K/mm3 Normal PLT 358 LAB L100.2000 6.2-12.0 fl Normal MPV 11.3 LAB L100.2100 47-70 % Normal NEUT% 62.1 LAB L100.2200 19-41 % Normal LY% 28.4 LAB L100.2300 0-10 % Normal MONO% 7.3 LAB L100.2400 0-5 % Normal EO% 1.5 LAB L100.2500 0-1 % Normal BASO% 0.6 LAB L100.2550 0.0-0.9 % Normal IM GRAN % 0.100 Result Comment: IG% - Immature Granulocytes (promyelocytes, myelocytes and metamyelocytes) > 1% indicates that a LEFT SHIFT is Present. LAB L100.2620 2.0-7.7 X10 3/uL Normal Absolute Neut 4.4 LAB L100.2720 0.83-4.51 X10 3/ul Normal Absolute Lymph 2.02 Performed By: #### L100.0100 #### [facility] [address] [place], [address] BASIC METABOLIC Collected: 11/22/2017 Status: F Source: [place] PROFILE (BMP) 2:30 AM [facility] REPOSITORY TYPE CODE TESTS RESULT OUT OF RANGE REFERENCE UNITS LAB L501.0100 74-106 mg/dL Normal GLU 97 Result Comment: Please note revised GLUCOSE reference range effective 2017. LAB L501.1000 7-18 mg/dL High BUN 30 LAB L501.1100 0.55-1.02 mg/dL High CREAT,SERUM 2.32 Result Comment: The validity of the calculated GFR AND GFRAA in patients over 70 years has not been determined. Clinical correlation is essential. LAB L501.1110 >60 mL/min Low EST GFR 23 Result Comment: Non- GFR Calc LAB L501.1115 >60 mL/min Low EST GFR - AA 28 Result Comment: GFR Calc LAB L501.1255 ml/min Normal Estimated CRCL 22.66 LAB L501.1300 10-20 RATIO Normal BUN/CRE 12.9 LAB L501.2200 8.5-10 mg/dL High .1 CA 10.5 LAB L501.5300 136-14 mmol/L Normal 5 NA 138 LAB L501.5600 3.5-5. mmol/L Normal 1 K 5.0 Result Comment: Slight Hemolysis, Result may be falsely increased. LAB L501.5900 98-107 mmol/L Normal CL 105 LAB L501.6100 21.0-32.0 mmol/L Normal CO2 24.0 LAB L501.6200 5-15 Normal 9 GAP Performed By: #### L500.2500, L501.5200 #### [facility] [address] [place], [address] MAGNESIUM Collected: 11/22/2017 Status: F Source: [place] 2:30 AM [facility] REPOSITORY TYPE CODE TESTS RESULT OUT OF RANGE REFERENCE UNITS LAB L501.5200 1.6-2.6 mg/dL High MG 2.7 Result Comment: Slight Hemolysis, Result may be falsely increased. Performed By: #### L500.2500, L501.5200 #### [facility] [address] [place], [address] CHEST 2 VIEWS Observed: 11/21/2017 Status: F Source: [place] 11:37 PM [facility] REPOSITORY Performed at [facility] APPROVED BY: YVETTE YORK DO EXAMINATION: CHEST 2 VIEWS REASON FOR EXAM: Chest pain, cardiac etiology suspected TECHNIQUE: CHEST 2 VIEWS COMPARISON: None FINDINGS: Lines, tubes, and devices: None. Lungs and pleura: No pleural effusion, pneumothorax, or vascular congestion. Bandlike opacity overlying the cardiac silhouette on the lateral view is consistent with atelectasis. There is an epic ardial fat pad on the left as well best seen on the lateral view. Densities overlying the lateral left lung base on the frontal view are nonspecific and may correspond to a more confluent 17 mm patchy opacity overlying the cardiac silhouette on the lateral view. Linear radiopacity overlying the left hilar region is likely external to the patient. Cardiomediastinal silhouette: The cardiac silhouette does not appear enlarged accounting for technique. Vascular calcifications noted. Other: Degenerative changes noted. No clear acute osseous abnormality. IMPRESSION: Abnormal opacity/opacities at the left lung base, more than expected for atelectasis alone. Nonspecific focal airspace disease is in the differential. Other etiologies such as lung nodules are not excl uded. Short term follow-up radiographs are recommended to evaluate for persistence. If this persists, CT would be recommended for further characterization. Correlation with any outside radiographs would be helpful as well. HEMOGRAM/DIFF Collected: 11/21/2017 Status: F Source: [place] 11:20 PM [facility] REPOSITORY TYPE CODE TESTS RESULT OUT OF REFERENCE UNITS RANGE LAB WBC(LOINC) 3.98-10.04 thou/cmm WBC 7.15 LAB RBC(LOINC) 3.93-5.22 mil/cmm RBC 4.46 LAB HGB(LOINC) 11.2-15.7 g/dL Hgb 12.0 LAB HCT(LOINC) 34.1-44.9 % Hct 37.5 LAB MCV(LOINC) 79.4-94.8 fl MCV 84.1 LAB MCH(LOINC) 25.6-32.2 pg MCH 26.9 LAB MCHC(LOINC 31.6-34.8 % ) MCHC 32.0 LAB RDW(LOINC) 11.7-14.4 % RDW 12.6 LAB RDWSD(LOIN 36.4-46.3 fl C) RDW SD 38.2 LAB PLT(LOINC) 182-369 thou/cmm Platelet 350 LAB MPV(LOINC) 9.4-12.3 fl MPV 11.1 LAB SEG(LOINC) % Seg Neutrophil 58.2 LAB IGRE(LOINC % ) Immature Grans 0.40 LAB LYMPH(LOIN % C) Lymphocyte 31.0 LAB MNO(LOINC) % Monocyte 8.0 LAB EOSIN(LOIN % C) Eosinophil 1.4 LAB BASO(LOINC % ) Basophil 1.0 LAB SEGN(LOINC 1.56-6.13 thou/cmm ) Abs. Neut (ANC) 4.16 LAB IGAB(LOINC 0.00-0.05 thou/cmm ) Abs Immature Grans 0.03 LAB LYMN(LOINC 1.18-3.74 thou/cmm ) Abs. Lymph 2.22 LAB MONON(LOIN 0.27-0.70 thou/cmm C) Abs. [place] 0.57 LAB EOSN(LOINC 0.00-0.31 thou/cmm ) Abs. Eosin 0.10 LAB BASON(LOIN 0.01-0.08 thou/cmm C) Abs. Baso 0.07 Performed By: #### CBCD1 #### [place] [address] ECU TROPONIN I Collected: 11/21/2017 Status: F Source: [facility] 11:20 PM [facility]ALTH SYSTEM REPOSITORY TYPE CODE TESTS RESULT OUT OF REFERENCE UNITS RANGE LAB ERTRP(LOINC 0.015-0.045 ng/ml ) ECU Troponin I < 0.015 Performed By: #### ERTRP #### [facility] [address] [place] [address] BASIC PANEL Collected: 11/21/2017 Status: F Source: [facility] 11:20 PM [facility] REPOSITORY TYPE CODE TESTS RESULT OUT OF REFERENCE UNITS RANGE LAB NA(LOINC) 136-145 mEq/L Sodium Blood 137 LAB K(LOINC) 3.5-5.1 mEq/L Potassium Blood 4.4 LAB CL(LOINC) 98-107 mEq/L Chloride Blood 105 LAB CO2(LOINC) 21-32 mEq/L CO2 Blood 22 LAB GLU(LOINC) 70-99 mg/dL Glucose High Blood 116 LAB BUN(LOINC) 7-18 mg/dL BUN High Blood 29 LAB CREA(LOINC 0.51-0.95 mg/dL ) High Creatinine Blood 2.13 LAB CA(LOINC) 8.5-10.1 mg/dL Calcium High Blood 10.2 LAB ANGAP(LOIN 8-16 C) Anion Gap 14 Performed By: #### P8 #### [place] [address] MAGNESIUM BLOOD Collected: 11/21/2017 Status: F Source: [facility] 11:20 PM [facility] SYSTEM REPOSITORY TYPE CODE TESTS RESULT OUT OF REFERENCE UNITS RANGE LAB MAG(LOINC) 1.6-2.6 mg/dL Magnesium Blood 2.5 Performed By: #### MAG #### [place] [address] MDRD GFR Collected: 11/21/2017 Status: F Source: [facility] 11:20 PM [facility] SYSTEM REPOSITORY TYPE CODE TESTS RESULT OUT OF RANGE REFERENCE UNITS LAB GFRFN(LOINC >60mL/min/1.73m ) 2 eGFR 24.00 Result Comment: If the patient is , multiply the result by 1.210. Performed By: #### GFR #### [place] [address] ED NOTE Observed: 11/21/2017 Status: COMPLETED Source: [place] 11:15 PM CLINIC OTHER CAMPUS REPOSITORY HNO ID: [id number] Author: Trinity Fish (Tech) Service: Emergency Medicine Author Type: Certified First Assistant Type: ED Notes Filed: 11/21/2017 11:30 PM Note Text: Took pt bs it was 201 ED TRIAGE NOTE Observed: 11/21/2017 Status: COMPLETED Source: [place] 11:12 PM [facility] OTHER CAMPUS REPOSITORY HNO ID: [id number] Author: GUSTABO Verduzco (Pa) Service: Emergency Medicine Author Type: Physician Data Management Engineer Type: ED Triage Notes Filed: 11/21/2017 11:14 PM Note Text: ED INTAKE NOTE Patient Name: Catarina Coyle Service Date: 11/21/17 BRIEF HPI: 57-year-old female presents emergency Department with complaints of mid-sternal chest pain that began approximately 3 hours prior to arrival. States she awoke with it around 8 PM. She endorses generalized weakness and lightheadedness. States she was recently admitted and found to have hypo-magnesia at that time. BRIEF EXAM: Awake and Alert RRR CTAB INTAKE WORKUP: Bloodwork: CBC BMP Cardiac Enzymes Magnesium EKG Urinalysis Imaging: XR: Chest SIGNATURE: Jonna Cota PA-C EKG (AK,AV,EU,FV,HL,MIKE,MM,SP) Observed: Status: F Source: [place] 11/21/2017 11:10 [facility] OTHER PM CAMPUS REPOSITORY NAME : CATARINA COYLE PID : [id number] : 1960 Gender : Female Race : Unknown ORD : [id number] Procedure Date : Nov 21 2017 23:10 Edit Date : Dec 10 2017 07:18 Diagnosis: POOR DATA QUALITY, INTERPRETATION MAY BE ADVERSELY AFFECTED NORMAL SINUS RHYTHM INCOMPLETE RIGHT BUNDLE BRANCH BLOCK CANNOT RULE OUT ANTERIOR INFARCT , AGE UNDETERMINED ABNORMAL ECG NO PREVIOUS ECGS AVAILABLE Confirmed by Carline Lopez ([id number]) on 12/10/2017 7:18:34 AM Ventricular Rate : 84 BPM Atrial Rate : 84 BPM P-R Interval : 138 ms QRS Duration : 96 ms Q-T Interval : 358 ms QTC Calculation(Bezet) : 423 ms P Alma : 22 degrees R Alma : 8 degrees T Alma : 34 degrees Test Reason : Chest Pain Location : 4 : [facility] Overread By : Carline Lopez Editted By : Carline Lopez Referred By : JONNA COTA Acquired by : Red Goldman CALCIUM,IONIZED Collected: 11/19/2017 Status: F Source: [facility] 4:38 AM SYSTEM REPOSITORY TYPE CODE TESTS RESULT OUT OF RANGE REFERENCE UNITS LAB ICAL 4.30-5.20 mg/dL Normal Ionized 4.90 Ca,Measured LAB PHICA 7.31-7.46 NA Normal pH, Ionized 7.37 Calcium Performed By: #### ICA, HEMDF, MG3, CMP3, FEIBC #### [facility] [address] [place] [address] HEMOGRAM W/ AUTODIFF Collected: 11/19/2017 Status: F Source: [facility] 4:38 AM SYSTEM REPOSITORY TYPE CODE TESTS RESULT OUT OF REFERENCE UNITS RANGE LAB IWBC 3.6-10.7 10*3/uL WBC Normal 6.7 LAB RBC 3.80-5.20 10*6/uL Low RBC 3.71 LAB HGB 11.7-16.0 g/dL Low Hemoglobin 10.4 LAB HCT 35.0-47.0 % Low Hematocrit 30.7 LAB MCV 79.0-98.0 fL MCV Normal 82.7 LAB MCH 26.0-34.0 pg MCH Normal 28.1 LAB MCHC 32.0-36.0 % MCHC Normal 33.9 LAB RDW 11.5-14.5 % RDW Normal 13.4 LAB PLT 140-440 10*3/uL Platelet Normal 306 LAB MPV 7.4-10.4 fL MPV Normal 9.5 LAB GRAN% 40.0-80.0 % Granulocytes Normal 66.8 LAB LYMP% 20.0-40.0 % Lymphocytes Normal 23.6 LAB MONO% 2.0-10.0 % Monocytes Normal 7.5 LAB EOS% 1.0-6.0 % Eosinophils Normal 1.5 LAB BAS% 0.0-2.0 % Basophils Normal 0.6 LAB ANC 1.8-7.0 10*3/uL Abs Normal Neutrophile Cnt 4.5 LAB ALC 1.0-4.3 10*3/uL Abs Lymph Cnt Normal 1.6 LAB AMC 0.0-0.8 10*3/uL Abs Monocyte Normal Cnt 0.5 LAB AEC 0.0-0.5 10*3/uL Abs Eosin Cnt Normal 0.1 LAB ABC 0.0-0.2 10*3/uL Abs Baso Cnt Normal 0.0 Performed By: #### ICA, HEMDF, MG3, CMP3, FEIBC #### [facility] [address] [place] [address] MAGNESIUM Collected: 11/19/2017 Status: F Source: [facility] 4:38 AM SYSTEM REPOSITORY TYPE CODE TESTS RESULT OUT OF RANGE REFERENCE UNITS LAB MG3 1.6-2.3 mg/dL Normal Magnesium 2.0 Performed By: #### ICA, HEMDF, MG3, CMP3, FEIBC #### [facility] [address] [place] [address] COMP METABOLIC PANEL Collected: 11/19/2017 Status: F Source: [facility] 4:38 AM SYSTEM REPOSITORY TYPE CODE TESTS RESULT OUT OF RANGE REFERENCE UNITS LAB NA3 137-145 mmol/L Sodium Normal 142 LAB K3 3.5-5.1 mmol/L Normal Potassium 4.5 LAB CL3 98-107 mmol/L High Chloride 111 LAB CO23 22-30 mmol/L Carbon Normal Dioxide 23 LAB ANIN3 NA Anion Gap 8 LAB GLUC3 70-100 mg/dL High Glucose 113 LAB BUN3 7-20 mg/dL High Urea Nitrogen 24 LAB CRET3 0.52-1.25 mg/dL High Creatinine 1.98 LAB GF3BR >60 mL/min eGFR 31.6 LAB GF3WR >60 mL/min eGFR OTHER 26.1 Result Comment: Source- MDRD equation with creatinine calibration to IDMS(NKDEP) eGFR not recommended for drug dose adjustment LAB CA3 8.4-10.4 mg/dL Calcium Normal 10.3 LAB ALB3 3.5-5.0 g/dL Albumin, Serum Normal 4.2 LAB TP3 6.3-8.2 g/dL Total Protein Normal 6.7 LAB BILT3 0.2-1.3 mg/dL Normal Bilirubin,Total 0.4 LAB ALKP3 38-126 U/L Alkaline Normal Phosphatase 52 LAB ALT3 13-69 U/L ALT (SGPT) Normal 28 LAB AST3 15-46 U/L AST (SGOT) Normal 20 Performed By: #### ICA, HEMDF, MG3, CMP3, FEIBC #### [facility] [address] [place] [address] IRON AND TIBC Collected: 11/19/2017 Status: F Source: [facility] 4:38 AM SYSTEM REPOSITORY TYPE CODE TESTS RESULT OUT OF RANGE REFERENCE UNITS LAB IRON3 37-170 ug/dL Iron, Normal Total 38 LAB TIBC3 261-497 ug/dL Total Normal Iron Binding 456 Cap. LAB SAT3 15-50 % Low Saturation 8 Performed By: #### ICA, HEMDF, MG3, CMP3, FEIBC #### [facility] [address] [place] [address] CR CHEST PORTABLE Observed: 11/18/2017 Status: F Source: [facility] 1:20 PM SYSTEM REPOSITORY Patient Name: CATARINA COYLE Diagnostic Radiology Exam Date/Time 11/18/2017 12:50:00 EDT Exam CR Chest Portable Ordering Physician UMESH BECK DANIEL M Accession Number [id number] CPT4 Codes 88696 () Reason For Exam chest pain Report CHEST: CLINICAL INDICATION: Chest pain TECHNIQUE: AP portable chest COMPARISON: CT dated 09/16/2017 FINDINGS: The heart demonstrates normal size. Calcification of the thoracic aorta is noted. The lungs are clear. There is no sizable pleural effusion. The osseous structures are unremarkable. IMPRESSION: No acute process. Report Dictated on Final Dictating Physician: MD CAMEJO NICHOLAS Signed Date and Time: 11/18/2017 1:21 pm Signed by: MD CAMEJO NICHOLAS Transcribed Date and Time: 11/18/2017 1:22 HEMOGRAM W/ AUTODIFF Collected: 11/18/2017 Status: F Source: [facility] 12:20 PM SYSTEM REPOSITORY TYPE CODE TESTS RESULT OUT OF REFERENCE UNITS RANGE LAB IWBC 3.6-10.7 10*3/uL WBC Normal 9.1 LAB RBC 3.80-5.20 10*6/uL Low RBC 3.79 LAB HGB 11.7-16.0 g/dL Low Hemoglobin 10.6 LAB HCT 35.0-47.0 % Low Hematocrit 31.1 LAB MCV 79.0-98.0 fL MCV Normal 82.1 LAB MCH 26.0-34.0 pg MCH Normal 28.1 LAB MCHC 32.0-36.0 % MCHC Normal 34.2 LAB RDW 11.5-14.5 % RDW Normal 13.4 LAB PLT 140-440 10*3/uL Platelet Normal 315 LAB MPV 7.4-10.4 fL MPV Normal 9.4 LAB GRAN% 40.0-80.0 % Granulocytes Normal 67.4 LAB LYMP% 20.0-40.0 % Lymphocytes Normal 25.4 LAB MONO% 2.0-10.0 % Monocytes Normal 5.7 LAB EOS% 1.0-6.0 % Low Eosinophils 0.8 LAB BAS% 0.0-2.0 % Basophils Normal 0.7 LAB ANC 1.8-7.0 10*3/uL Abs Normal Neutrophile Cnt 6.1 LAB ALC 1.0-4.3 10*3/uL Abs Lymph Cnt Normal 2.3 LAB AMC 0.0-0.8 10*3/uL Abs Monocyte Normal Cnt 0.5 LAB AEC 0.0-0.5 10*3/uL Abs Eosin Cnt Normal 0.1 LAB ABC 0.0-0.2 10*3/uL Abs Baso Cnt Normal 0.1 Performed By: #### HEMDF, BMP3, MG3, PHOS3, LFT3, LIPA4, TROPN #### [facility] [address] [place] [address] BASIC METABOLIC PANEL Collected: 11/18/2017 Status: F Source: [facility] 12:20 PM SYSTEM REPOSITORY TYPE CODE TESTS RESULT OUT OF RANGE REFERENCE UNITS LAB NA3 137-145 mmol/L Sodium Normal 140 LAB K3 3.5-5.1 mmol/L Normal Potassium 3.7 LAB CL3 98-107 mmol/L Chloride Normal 106 LAB CO23 22-30 mmol/L Low Carbon Dioxide 21 LAB ANIN3 NA Anion Gap 12 LAB GLUC3 70-100 mg/dL High Glucose 113 LAB BUN3 7-20 mg/dL High Urea Nitrogen 31 LAB CRET3 0.52-1.25 mg/dL High Creatinine 2.17 LAB GF3BR >60 mL/min eGFR 28.5 LAB GF3WR >60 mL/min eGFR OTHER 23.5 Result Comment: Source- MDRD equation with creatinine calibration to IDMS(NKDEP) eGFR not recommended for drug dose adjustment LAB CA3 8.4-10.4 mg/dL High Calcium 10.5 Performed By: #### HEMDF, BMP3, MG3, PHOS3, LFT3, LIPA4, TROPN #### [facility] [address] [place] [address] MAGNESIUM Collected: 11/18/2017 Status: F Source: [facility] 12:20 PM SYSTEM REPOSITORY TYPE CODE TESTS RESULT OUT OF REFERENCE UNITS RANGE LAB MG3 1.6-2.3 mg/dL Low Alert Magnesium 0.4 Performed By: #### HEMDF, BMP3, MG3, PHOS3, LFT3, LIPA4, TROPN #### [facility] [address] [place] [address] PHOSPHORUS Collected: 11/18/2017 Status: F Source: [facility] 12:20 PM SYSTEM REPOSITORY TYPE CODE TESTS RESULT OUT OF RANGE REFERENCE UNITS LAB PHOS3 2.5-4.5 mg/dL Normal Phosphorus 4.3 Performed By: #### HEMDF, BMP3, MG3, PHOS3, LFT3, LIPA4, TROPN #### [facility] [address] [place] [address] HEPATIC FUNCTION Collected: 11/18/2017 Status: F Source: [facility] 12:20 PM SYSTEM REPOSITORY TYPE CODE TESTS RESULT OUT OF RANGE REFERENCE UNITS LAB ALB3 3.5-5.0 g/dL Albumin, Normal Serum 4.5 LAB TP3 6.3-8.2 g/dL Total Normal Protein 7.1 LAB BILT3 0.2-1.3 mg/dL Normal Bilirubin,Total 0.5 LAB BILD3 0.0-0.3 mg/dL Normal Bilirubin,Direct 0.0 LAB ALKP3 38-126 U/L Alkaline Normal Phosphatase 50 LAB ALT3 13-69 U/L ALT (SGPT) Normal 30 LAB AST3 15-46 U/L AST (SGOT) Normal 16 Performed By: #### HEMDF, BMP3, MG3, PHOS3, LFT3, LIPA4, TROPN #### [facility] [address] [place] [address] LIPASE Collected: 11/18/2017 Status: F Source: [place] 12:20 PM SYSTEM REPOSITORY TYPE CODE TESTS RESULT OUT OF RANGE REFERENCE UNITS LAB LIPA4 23-300 U/L Normal Lipase 256 Performed By: #### HEMDF, BMP3, MG3, PHOS3, LFT3, LIPA4, TROPN #### [facility] [facility] [address] [place] [address] TROPONIN I Collected: 11/18/2017 Status: F Source: [place] 12:20 PM SYSTEM REPOSITORY TYPE CODE TESTS RESULT OUT OF RANGE REFERENCE UNITS LAB TROP4 0.000-0.034 ng/mL Normal Troponin I < 0.012 Result Comment: 0.046 - 0.400 = Indeterminate > 0.400 = Consider Myocardial Injury Performed By: #### HEMDF, BMP3, MG3, PHOS3, LFT3, LIPA4, TROPN #### [facility] [employer] [facility] [address] [place] [address] RENAL PROFILE Collected: 11/18/2017 Status: F Source: [place] 8:31 AM [facility] REPOSITORY TYPE CODE TESTS RESULT OUT OF RANGE REFERENCE UNITS LAB L501.0100 74-106 mg/dL High GLU 109 Result Comment: Fasting Glucose result from 100 to 125 mg/dL suggests IMPAIRED HOMEOSTASIS per A.D.A. criteria. Please note revised GLUCOSE reference range effective 2017. LAB L501.1000 7-18 mg/dL High BUN 34 LAB L501.1100 0.55-1.02 mg/dL High CREAT,SERUM 2.23 Result Comment: The validity of the calculated GFR AND GFRAA in patients over 70 years has not been determined. Clinical correlation is essential. LAB L501.1110 >60 mL/min Low EST GFR 24 Result Comment: Non- GFR Calc LAB L501.1115 >60 mL/min Low EST GFR - AA 29 Result Comment: GFR Calc LAB L501.1300 10-20 RATIO Normal BUN/CRE 15.2 LAB L501.1800 3.2-5.0 g/dL Normal ALB 3.8 LAB L501.2200 8.5-10.1 mg/dL CA Normal 9.7 LAB L501.2300 2.5-4.9 mg/dL Normal PHOS 4.0 LAB L501.5300 136-145 mmol/L NA Normal 141 LAB L501.5600 3.5-5.1 mmol/L K Normal 3.7 LAB L501.5900 98-107 mmol/L CL Normal 105 LAB L501.6100 21.0-32.0 mmol/L Normal CO2 27.0 Performed By: #### L500.3600, L501.5200 #### [facility] [address] [place], [place], [address] MAGNESIUM Collected: 11/18/2017 Status: F Source: [place] 8:31 AM [facility] REPOSITORY TYPE CODE TESTS RESULT OUT OF RANGE REFERENCE UNITS LAB L501.5200 1.6-2.6 mg/dL Low alert MG 0.5 Result Comment: Critical Result(s) Called at: 10:36:52 11/18/2017 by: Gisele Garland Performed By: #### L500.3600, L501.5200 #### [facility] [address] [facility] [place], [place], [id number] CBC-COMPLETE BLOOD CNT Collected: 11/08/2017 Status: F Source: [place] NO DIFF 8:46 AM [facility] REPOSITORY TYPE CODE TESTS RESULT OUT OF RANGE REFERENCE UNITS LAB L100.1000 4.4-11.0 K/mm3 Normal WBC 8.7 LAB L100.1200 4.2-5.4 M/mm3 Low RBC 3.73 LAB L100.1300 12.0-15.0 g/dl Low HGB 10.1 LAB L100.1400 37-47 % Low HCT 31.4 LAB L100.1500 81-99 fL Normal MCV 84.2 LAB L100.1600 27.0-32.0 pg Normal MCH 27.1 LAB L100.1700 32-36 g/gl Normal MCHC 32.2 LAB L100.1810 11.6-14.6 % Normal RDW CV 13.1 LAB L100.1820 35.1-43.9 fl Normal RDW SD 39.9 LAB L100.1900 150-450 K/mm3 Normal PLT 362 LAB L100.2000 6.2-12.0 fl Normal MPV 10.4 Performed By: #### L100.0500 #### [facility] [address] [place], [place], [address] PROTEIN+CREATININE Collected: Status: F Source: [place] RATIO,URINE 11/08/2017 8:46 AM [facility] REPOSITORY TYPE CODE TESTS RESULT OUT OF RANGE REFERENCE UNITS LAB L501.1200 NO RANGE EST. mg/dL < Normal UR 13.00 CREAT LAB L501.1930 <11.9 mg/dL High 25.8 PROTEIN,UR. RAN. LAB L501.1940 0-200 mg/g CRE Test Normal not performed PROT:CRE RATIO Performed By: #### L501.0900 #### [facility] [address] [facility] [place], [place], [id number] RENAL PROFILE Collected: 11/08/2017 Status: F Source: [place] 8:46 AM [facility] REPOSITORY TYPE CODE TESTS RESULT OUT OF RANGE REFERENCE UNITS LAB L501.0100 74-106 mg/dL Normal GLU 78 Result Comment: Please note revised GLUCOSE reference range effective 2017. LAB L501.1000 7-18 mg/dL Normal BUN 16 LAB L501.1100 0.55-1.02 mg/dL High CREAT,SERUM 2.09 Result Comment: The validity of the calculated GFR AND GFRAA in patients over 70 years has not been determined. Clinical correlation is essential. LAB L501.1110 >60 mL/min Low EST GFR 26 Result Comment: Non- GFR Calc LAB L501.1115 >60 mL/min Low EST GFR - AA 32 Result Comment: GFR Calc LAB L501.1300 10-20 RATIO Low BUN/CRE 7.7 LAB L501.1800 3.2-5.0 g/dL Normal ALB 3.5 LAB L501.2200 8.5-10.1 mg/dL Low CA 7.9 LAB L501.2300 2.5-4.9 mg/dL Normal PHOS 2.5 LAB L501.5300 136-145 mmol/L Normal NA 136 LAB L501.5600 3.5-5.1 mmol/L Normal K 3.6 LAB L501.5900 98-107 mmol/L Normal CL 104 LAB L501.6100 21.0-32.0 mmol/L Normal CO2 25.0 Performed By: #### L500.3600, L501.5200 #### [facility] [address] [facility] [place], [address] MAGNESIUM Collected: 11/08/2017 Status: F Source: [place] 8:46 AM [facility] REPOSITORY TYPE CODE TESTS RESULT OUT OF RANGE REFERENCE UNITS LAB L501.5200 1.6-2.6 mg/dL Low alert MG 0.7 Result Comment: Critical Result(s) Called at: 09:58:03 11/08/2017 by: Gisele Cuellar to [facility] Performed By: #### L500.3600, L501.5200 #### [facility] [address] [place], [address] VITAMIN D,25 HYDROXY Collected: 11/08/2017 Status: F Source: [place] 8:46 AM [facility] REPOSITORY TYPE CODE TESTS RESULT OUT OF RANGE REFERENCE UNITS LAB L506.1000 29.95-100.01 ng/mL Normal Vitamin D 39.3 25-OH Result Comment: Vitamin D 25(OH) Status Range Deficiency <20 ng/mL (50nmol/L) Insuffciency 20 - 30 ng/mL (50 - 75 nmol/L) Sufficiency 30 - 100 ng/mL (75 - 250 nmol/L) Toxicity >100 ng/mL (>250 nmol/L) Performed By: #### L506.1000 #### [facility] [address] [place], [address] PTHIN Collected: 11/08/2017 Status: F Source: [place] 8:46 AM [facility] REPOSITORY TYPE CODE TESTS RESULT OUT OF RANGE REFERENCE UNITS LAB L509.1000 18.4-80.1 pg/mL High PTHIN 130.0 Performed By: #### L509.1000 #### [facility] [address] [place], [address] PROGRESS Observed: 10/21/2017 Status: COMPLETED Source: [place] 9:06 AM [facility] REPOSITORY O ID: [id number] Author: Eren Malone Service: (none) Author Type: Physician Type: Progress Notes Filed: 10/21/2017 9:58 AM Note Text: Catarina Coyle is a 57 year old female who presents for Abdominal Pain. HPI: Patient Presents with epigastric and LUQ Pain on and off for about a year. Pain now has constant since last two months. Pain radiates to back, pain is better by not eating and worse with meal, pain is associated with nausea without definite vomiting. Increased eructations, feeling fullnessNo melena, some diarrhea. No BRPR. Weight gain of 15 lbs in last two months. Patient takes Protonix for acid reflux, symptoms under reasonably under control. No NSAID's. 2016 work up with EGD showed hiatal Hernia. Patient also take tramadol for pain of fibromyalgia. Record Review: No outside records or outside imaging available PAST MEDICAL HISTORY Diagnosis Date - Abnormal renal function - GERD (gastroesophageal reflux disease) - HTN (hypertension) PAST SURGICAL HISTORY Procedure Laterality Date - COLONOSCOPY 05/13/2011 Hyperplastic Polyps x2 Benign - EGD 05/07/2011 - PAST SURGICAL HISTORY OF 2008 Hysterectomy - PAST SURGICAL HISTORY OF 2015 Torn menicus repair Allergies: ALLERGIES Allergen Reactions - Avelox [Moxifloxaci* Unknown - Codeine Unknown - Dilaudid [Hydromorp* Unknown - Morphine Unknown - Penicillins Unknown - Percocet [Oxycodone* Unknown Medications: levothyroxine (SYNTHROID) 50 mcg tablet Take 50 mcg by mouth once daily. amLODIPine (NORVASC) 2.5 mg tablet TAKE 1 TABLET BY MOUTH ONCE DAILY ONCE A DAY ORALLY 90 DAYS losartan (COZAAR) 50 mg tablet Take 100 mg by mouth once daily. calcitriol (ROCALTROL) 0.25 mcg capsule TAKE 2 CAPSULE ONCE A DAY ORALLY 90 DAYS magnesium oxide (MAG-OX) 400 mg tablet Take 1 tablet by mouth twice daily. pantoprazole DR (PROTONIX) 20 mg tablet Take 20 mg by mouth twice daily. traMADol (ULTRAM) 50 mg tablet Fenofibric Acid 105 mg tab Take 1 tablet by mouth once daily. ergocalciferol, vitamin D2, (VITAMIN D2 ORAL) Take by mouth once daily. FAMILY HISTORY Problem Relation Age of Onset - Hypertension Mother - Diabetes Mother - Hypertension Father - Diabetes Father Employer And Job Title: None on file Years Of Education Completed: Not specified Marital Status: Social History Substance Use Topics - Smoking status: Current Every Day Smoker Types: Cigarettes - Smokeless tobacco: Never Used - Alcohol use No Review of Systems: Review of Systems Constitutional: Positive for activity change and fatigue. Gastrointestinal: Positive for abdominal distention, abdominal pain, diarrhea, nausea and vomiting. Change in bowel habits. All other systems reviewed and are negative. Where do you currently reside? [place]ependently Are you taking any blood thinners? No Physical Examination: Physical Exam Assessment/Plan: Catarina was seen today for abdominal pain. Diagnoses and all orders for this visit: Pain of upper abdomen - EGD GEN ANES; Future Epigastric abdominal tenderness without rebound tenderness - EGD GEN ANES; Future Hiatal hernia - EGD GEN ANES; Future Fullness of abdomen, r/o gastroparesis - EGD GEN ANES; Future I have confirmed and edited as necessary, the PFSH and ROS obtained by others. This note was generated using Eight19 voice recognition system, and there may be some incorrect words, spellings, and punctuation that were not noted in checking the note before saving. Mariaa HAJIOV Observed: 10/21/2017 Status: COMPLETED Source: [place] 8:30 AM [facility] REPOSITORY Office Visit ([facility]) TIMCATARINA Barragan ([id number]) 1960 F Date Time Provider Department 10/21/17 8:30 AM EREN MALONE [facility] During your visit today, we recorded the following information about you: Pulse Blood pressure Weight Height 78/minute 134/98 102.1 kg 1.6 m Eren Malone MD 10/21/2017 9:58 AM Signed Catarina Dumontmazin is a 57 year old female who presents for Abdominal Pain. HPI: Patient Presents with epigastric and LUQ Pain on and off for about a year. Pain now has constant since last two months. Pain radiates to back, pain is better by not eating and worse with meal, pain is associated with nausea without definite vomiting. Increased eructations, feeling fullnessNo melena, some diarrhea. No BRPR. Weight gain of 15 lbs in last two months. Patient takes Protonix for acid reflux, symptoms under reasonably under control. No NSAID's. 2016 work up with EGD showed hiatal Hernia. Patient also take tramadol for pain of fibromyalgia. Record Review: No outside records or outside imaging available PAST MEDICAL HISTORY Diagnosis Date - Abnormal renal function - GERD (gastroesophageal reflux disease) - HTN (hypertension) PAST SURGICAL HISTORY Procedure Laterality Date - COLONOSCOPY 05/13/2011 Hyperplastic Polyps x2 Benign - EGD 05/07/2011 - PAST SURGICAL HISTORY OF 2008 Hysterectomy - PAST SURGICAL HISTORY OF 2016 Torn menicus repair Allergies: ALLERGIES Allergen Reactions - Avelox [Moxifloxaci* Unknown - Codeine Unknown - Dilaudid [Hydromorp* Unknown - Morphine Unknown - Penicillins Unknown - Percocet [Oxycodone* Unknown Medications: levothyroxine (SYNTHROID) 50 mcg tablet Take 50 mcg by mouth once daily. amLODIPine (NORVASC) 2.5 mg tablet TAKE 1 TABLET BY MOUTH ONCE DAILY ONCE A DAY ORALLY 90 DAYS losartan (COZAAR) 50 mg tablet Take 100 mg by mouth once daily. calcitriol (ROCALTROL) 0.25 mcg capsule TAKE 2 CAPSULE ONCE A DAY ORALLY 90 DAYS magnesium oxide (MAG-OX) 400 mg tablet Take 1 tablet by mouth twice daily. pantoprazole DR (PROTONIX) 20 mg tablet Take 20 mg by mouth twice daily. traMADol (ULTRAM) 50 mg tablet Fenofibric Acid 105 mg tab Take 1 tablet by mouth once daily. ergocalciferol, vitamin D2, (VITAMIN D2 ORAL) Take by mouth once daily. FAMILY HISTORY Problem Relation Age of Onset - Hypertension Mother - Diabetes Mother - Hypertension Father - Diabetes Father Employer And Job Title: None on file Years Of Education Completed: Not specified Marital Status: Social History Substance Use Topics - Smoking status: Current Every Day Smoker Types: Cigarettes - Smokeless tobacco: Never Used - Alcohol use No Review of Systems: Review of Systems Constitutional: Positive for activity change and fatigue. Gastrointestinal: Positive for abdominal distention, abdominal pain, diarrhea, nausea and vomiting. Change in bowel habits. All other systems reviewed and are negative. Where do you currently reside? Independently Are you taking any blood thinners? No Physical Examination: Physical Exam Assessment/Plan: Catarina was seen today for abdominal pain. Diagnoses and all orders for this visit: Pain of upper abdomen - EGD GEN ANES; Future Epigastric abdominal tenderness without rebound tenderness - EGD GEN ANES; Future Hiatal hernia - EGD GEN ANES; Future Fullness of abdomen, r/o gastroparesis - EGD GEN ANES; Future I have confirmed and edited as necessary, the PFSH and ROS obtained by others. This note was generated using Eight19 voice recognition system, and there may be some incorrect words, spellings, and punctuation that were not noted in checking the note before saving. Mariaa Kay Referring Provider: MONSTER LACKEY [[id number]] Allergies As of Date: 10/21/2017 Noted Allergy Reaction AVELOX (MOXIFLOXACIN HCL) 10/17/2017 16 - Unknown CODEINE 10/17/2017 16 - Unknown DILAUDID (HYDROMORPHONE (BULK)) 10/17/2017 16 - Unknown MORPHINE 10/17/2017 16 - Unknown PENICILLINS 10/17/2017 16 - Unknown PERCOCET (OXYCODONE-ACETAMINOPHEN)10/17/2017 16 - Unknown Date Reviewed: 10/21/2017 Reviewed by: Eren Malone - Fully Assessed Reason for Visit: Abdominal Pain [1] Primary Visit Diagnosis:Pain of upper abdomen [R10.10] Other Visit Diagnoses:Epigastric abdominal tenderness without rebound tenderness [R10.816] Hiatal hernia [K44.9] Fullness of abdomen [R19.8] Diarrhea, unspecified type [R19.7] Order(s):EGD GEN ANES [3709841] Order #: [id number] FUTURE Prescriptions as of 10/21/2017 Sig: LEVOTHYROXINE 50 MCG TABLET Take 50 mcg by mouth once sumaya* AMLODIPINE 2.5 MG TABLET TAKE 1 TABLET BY MOUTH ONCE D* LOSARTAN 50 MG TABLET Take 100 mg by mouth once sumaya* CALCITRIOL 0.25 MCG CAPSULE TAKE 2 CAPSULE ONCE A DAY ORA* MAGNESIUM OXIDE 400 MG TABLET Take 1 tablet by mouth twice * PANTOPRAZOLE 20 MG TABLET,DEL* Take 20 mg by mouth twice sumaya* TRAMADOL 50 MG TABLET FENOFIBRIC ACID 105 MG TABLET Take 1 tablet by mouth once d* VITAMIN D2 ORAL Take by mouth once daily. Problem List As Of Date: 10/21/2017 (None) Encounter Status:Closed by EREN MALONE MD on 10/21/17 CNCO Observed: 10/21/2017 Status: COMPLETED Source: [place] 12:00 AM [facility] RE[facility] Letter Text UPPER ENDOSCOPY (EGD) You are scheduled at: [facility] [address] [place] [address] You are scheduled for an EGD on . 12/01/17 at 8:00 am. YOU MUST have a responsible adult to drive you home and to assist you at home while you finish recovering from your sedation. Please limit the number of people that come with you to 1-2 people due to the limited waiting area. Bring your [employer]'s license, insurance card(s) and a list of your medications with you. Arrive 45 minutes before your scheduled exam time at 7:15 am Do not eat or drink anything after midnight the night before, including gum and hard candy. If you take any heart, blood pressure or breathing medications, you can take these before 6:00am on the day of your exam with a little sip of water. 5 DAYS BEFORE THE EXAM STOP TAKING ASPIRIN OR ASPIRIN CONTAINING PRODUCTS, VITAMIN E, BLOOD THINNERS SUCH COUMADIN, WARFARIN, PLAVIX, AGGRENOX (Please consult with the prescribing doctor of your blood thinner). DAY OF THE EXAM Diabetics: Please do not take any of your diabetic medications on the morning of the procedure; you may take them after the procedure. Any questions, please call our office at [phone]. There will be a $50.00 charge for any no show appointments or same day cancels. CT ABDOMEN/PELVIS W/O Observed: 09/16/2017 Status: F Source: [employer] 1:37 PM SYSTEM REPOSITORY Patient Name: CATARINA COYLE CT Exam Date/Time 09/16/2017 13:25:[address] Abdomen/Pelvis (No PO, No IV) Ordering Physician MD ZIYAD, MONSTER Philip Accession Number [id number] CPT4 Codes 89435 (CT Abdomen/Pelvis (No PO, No IV)) Reason For Exam abdomen pain Report CT ABDOMEN AND PELVIS WITHOUT IV CONTRAST CLINICAL INDICATION: Abdominal pain. TECHNIQUE: Multidetector axial CT images through the abdomen and pelvis were obtained without IV contrast. No oral contrast was administered. Images were reconstructed in sagittal and coronal planes. COMPARISON: Correlation is made with ultrasound abdomen Limited dated 08/31/2017. FINDINGS: This examination is limited for the evaluation of solid organs and vascular structures due to the lack of intravenous contrast. Lung bases: Normal. Liver: normal hepatic contour. No hepatic lesion.. Biliary tree: Incomplete distention of the gallbladder. No biliary dilation.. Spleen: Normal Adrenals: Normal. Pancreas: Normal. Kidneys: Kidneys are normal in size and position. 2 cm right mid renal exophytic hypodensity is reduced in size from 2.4 cm. Multiple left renal exophytic cortical hypodensities the largest of which measures 4.2 cm, increased from 3.2 cm on the prior exam. Many of the renal hypodensities measure intermediate Hounsfield units. Minimal bilateral perinephric stranding. No renal or ureteral nephrolithiasis are evident. Renal collecting systems: No calculi, hydronephrosis or ureteral dilatation. Free air or fluid: None. Mesenteric/retroperitoneal: No adenopathy or inflammation. Aorta: Aorta and bilateral iliac atherosclerotic calcifications. Bowel: Appendix is normal in caliber. No dilatation is noted. Sigmoid diverticula. Pelvic organs/viscera: Surgically absent uterus. No mass is identified. Bladder: No calculi or filling defects. Urinary bladder is incompletely distended. Inguinal: No adenopathy Abdominal wall/soft tissues: abdominal wall. Osseous structures: No osseous abnormalities. IMPRESSION: 1. No acute abdominal or pelvic process. 2. Bilateral renal exophytic cortical hypodensities, left greater than right. Complex renal cyst or mass is not excluded based on elevated Hounsfield units. Recent limited ultrasound shows two right superior renal cortical cysts. Left kidney was not imaged. 3. Sigmoid diverticulosis. Follow-up renal ultrasound is suggested. Report Dictated on Final Dictating Physician: ANGEL HARE DO, I Signed Date and Time: 09/16/2017 1:49 pm Signed by: ANGEL HARE DO, I Transcribed Date and Time: 09/16/2017 1:50 CNCO Observed: 09/08/2017 Status: COMPLETED Source: [place] 12:00 AM [facility] REPOSITORY Letter Text Eren Malone MD [id number] [place] [address] September 08, 2017 Catarina Coyle CC# [id number] [address] [place] [id number] Dear Ms. Coyle: We have tried on several occasions to contact you by telephone to schedule your appointment(s) without success. Please call our office at [phone] option 2 to schedule your appointment. Our phones are on Tuesday through Tuesday from 9:00am until 12:00pm and 1:00pm until 4:00pm. Thank you for your cooperation. Sincerely, Eren Malone MD US ABDOMEN LIMITED Observed: 08/31/2017 Status: F Source: [facility] 10:21 AM SYSTEM REPOSITORY Patient Name: CATARINA COYLE Ultrasound Exam Date/Time 08/31/2017 09:00:00 EDT Exam US Abdomen Limited Ordering Physician MD LACKEY RICHARD H Accession Number [id number] CPT4 Codes 34119 () Reason For Exam abdomen pain Report ULTRASOUND ABDOMEN COMPLETE EXAM DATE AND TIME: 08/31/2017 9:00 AM EDT INDICATION: 57 years Female with abdominal pain COMPARISON: Ultrasound September 29, [address] 09/04/2013 TECHNIQUE: Limited ultrasound of abdomen FINDINGS: Grayscale and color Doppler flow signal technique utilized. Liver: Echogenic. Enlarged, 18.4 cm.. No focal lesion identified. Gallbladder: NormalNo Guadalupe's sign observed. Common bile duct: 2.8 mm \X09\\X09\ Pancreas: Unremarkable as seen Right kidney: Normal size measuring 10.9 cm. Normal parenchymal echogenicity without solid mass or hydronephrosis. . Several cystic structures are present, 1.6 cm typical for simple cyst, larger than on previous ultrasound,, and 1.8 cm with some internal echoes which may reflect hemorrhagic cyst. A similar finding is seen on previous exam. IMPRESSION: Enlarged echogenic liver compatible with fatty infiltration. Please correlate clinically. Renal cystic lesions on the right, including possible cyst with complex features. Report Dictated on Final Dictating Physician: MD RODRIGUEZ JOHN Signed Date and Time: 08/31/2017 10:26 am Signed by: MD RODRIGUEZ JOHN Transcribed Date and Time: 08/31/2017 10:27 CBC-COMPLETE BLOOD CNT Collected: 06/08/2017 Status: F Source: [place] NO DIFF 9:56 AM [facility] REPOSITORY TYPE CODE TESTS RESULT OUT OF RANGE REFERENCE UNITS LAB L100.1000 4.4-11.0 K/mm3 Normal WBC 8.5 LAB L100.1200 4.2-5.4 M/mm3 Low RBC 4.00 LAB L100.1300 12.0-15.0 g/dl Low HGB 11.5 LAB L100.1400 37-47 % Low HCT 34.9 LAB L100.1500 81-99 fL Normal MCV 87.3 LAB L100.1600 27.0-32.0 pg Normal MCH 28.8 LAB L100.1700 32-36 g/gl Normal MCHC 33.0 LAB L100.1810 11.6-14.6 % Normal RDW CV 13.7 LAB L100.1820 35.1-43.9 fl Normal RDW SD 42.4 LAB L100.1900 150-450 K/mm3 Normal PLT 306 LAB L100.2000 6.2-12.0 fl Normal MPV 11.4 Performed By: #### L100.0500 #### [facility] [address] [place], [place], [id number] MICROALB:CREAT Collected: 06/08/2017 Status: F Source: [place] RATIO,RANDOM UR 9:56 AM [facility] REPOSITORY TYPE CODE TESTS RESULT OUT OF RANGE REFERENCE UNITS LAB L501.1200 NO RANGE EST. mg/dL < Normal UR 13.00 CREAT LAB L502.0500 NO RANGE EST. mg/L 183.0 Normal MICROALBUMI N,UR LAB L502.0600 <30 mg/g CRE mg/g CRE Test Normal not performed MALB:CREAT Performed By: #### L502.0250 #### [facility] [address] [place], [place], [address] RENAL PROFILE Collected: 06/08/2017 Status: F Source: [place] 9:56 AM [facility] REPOSITORY TYPE CODE TESTS RESULT OUT OF RANGE REFERENCE UNITS LAB L501.0100 74-106 mg/dL Normal GLU 94 Result Comment: Please note revised GLUCOSE reference range effective 2017. LAB L501.1000 7-18 mg/dL High BUN 25 LAB L501.1100 0.55-1.02 mg/dL High CREAT,SERUM 2.17 Result Comment: The validity of the calculated GFR AND GFRAA in patients over 70 years has not been determined. Clinical correlation is essential. LAB L501.1110 >60 mL/min Low EST GFR 25 Result Comment: Non- GFR Calc LAB L501.1115 >60 mL/min Low EST GFR - AA 30 Result Comment: GFR Calc LAB L501.1300 10-20 RATIO Normal BUN/CRE 11.5 LAB L501.1800 3.2-5.0 g/dL Normal ALB 3.8 LAB L501.2200 8.5-10.1 mg/dL CA Normal 9.1 LAB L501.2300 2.5-4.9 mg/dL Normal PHOS 3.0 LAB L501.5300 136-145 mmol/L Low NA 132 LAB L501.5600 3.5-5.1 mmol/L K Normal 4.6 LAB L501.5900 98-107 mmol/L CL Normal 98 LAB L501.6100 21.0-32.0 mmol/L Normal CO2 26.0 Performed By: #### L500.3600, L501.5200 #### [facility] [address] [facility] [place], [place], [address] MAGNESIUM Collected: 06/08/2017 Status: F Source: [place] 9:56 AM [facility] REPOSITORY TYPE CODE TESTS RESULT OUT OF RANGE REFERENCE UNITS LAB L501.5200 1.6-2.6 mg/dL Normal MG 1.6 Result Comment: Please note revised Magnesium reference range effective 2017. Performed By: #### L500.3600, L501.5200 #### [facility] [address] [facility] [place], [address] VITAMIN D,25 HYDROXY Collected: 06/08/2017 Status: F Source: [place] 9:56 AM [facility] REPOSITORY TYPE CODE TESTS RESULT OUT OF RANGE REFERENCE UNITS LAB L506.1000 19.95-100.01 ng/mL Normal Vitamin D 21.2 25-OH Result Comment: Vitamin D 25(OH) Status Range Deficiency <20 ng/mL (50nmol/L) Insuffciency 20 - 30 ng/mL (50 - 75 nmol/L) Sufficiency 30 - 100 ng/mL (75 - 250 nmol/L) Toxicity >100 ng/mL (>250 nmol/L) Performed By: #### L506.1000 #### [facility] [address] [place], [address] PTHIN Collected: 06/08/2017 Status: F Source: ZULY 9:56 AM [facility] REPOSITORY TYPE CODE TESTS RESULT OUT OF RANGE REFERENCE UNITS LAB L509.1000 18.4-80.1 pg/mL High PTHIN 190.4 Result Comment: Please Note: PTH INTACT METHOD AND REFERENCE RANGE CHANGE Effective 04/13/2017. Performed By: #### L509.1000 #### [facility] [address] [place], [address] ALLERGIES ALLERGIES DATE TYPE / NAME / CODE REACTION SEVERITY SOURCE CODE 11/22/2017 Drug Penicillins/A095101 Shortness of Unknown [place] Allergy/41 476(RXNORM) breath Community [id number]([facility]) Repository 11/22/2017 Drug morphine/[id number] Shortness of Unknown [place] Allergy/41 (RXNORM) breath Community 9981624([facility]) Repository 11/22/2017 Drug codeine/[id number]( Shortness of Unknown [place] Allergy/41 RXNORM) breath Community 1864632([facility]) Repository 11/22/2017 Drug oxycodone/[id number] Shortness of Unknown [place] Allergy/41 8(RXNORM) breath Community 3266040([facility]) Repository 11/22/2017 Drug acetaminophen/F0060 Shortness of Unknown [place] Allergy/41 22488(RXNORM) breath Community 9442307([facility]) Repository 11/22/2017 Drug hydromorphone/F0060 Shortness of Unknown [place] Allergy/41 13549(RXNORM) breath Community 0183404([facility]) Repository 11/22/2017 Drug moxifloxacin/R99851 Shortness of Unknown [place] Allergy/41 7927(RXNORM) breath Community 0114287( Hospital O[facility]) Repository 10/17/2017 DRUG MOXIFLOXACIN HCL UNKNOWN [facility] [place] 7921192(SN Repository OMED CT) 10/17/2017 DRUG CODEINE UNKNOWN [place] [address] [address] [place] 7345050(SN Repository OMED CT) 10/17/2017 DRUG/72298 HYDROMORPHONE UNKNOWN [facility] 1003(SNOME (BULK) [facility] [place] D CT) Repository 10/17/[address] [facility]/ [facility] [place] 4927841(SN Repository OMED CT) 10/17/2017 Drug PENICILLINS UNKNOWN [facility] Class/4195 [address] [place] [address](SNOM Repository ED CT) 10/17/2017 DRUG/57034 OXYCODONE-ACETAMINO UNKNOWN [facility] 1003(SNOME PHEN [place] D CT) Repository NG/1415841 MOXIFLOXACIN HCL [facility] 06(SNOMED [facility]) Repository NG/7562932 CODEINE [facility] 06(SNOMED [facility]) Repository NG/1945461 HYDROMORPHONE [facility] 06(SNOMED (BULK) [facility]) Repository NG/4385428 MORPHINE [facility] 06(SNOMED [facility]) Repository NG/4251135 PENICILLINS [facility] 06(SNOMED [facility]) Repository NG/2661378 OXYCODONE-ACETAMINO [facility] 06(SNOMED PHEN [facility]) Repository ENCOUNTERS ENCOUNTERS ADMIT/DISCHARGE ACCOUNT NUMBER ADMITTING ENCOUNTER LOCATION SOURCE CLASS 04/24/2018 [id number] Ambulatory [facility] ding:LAB Repository 04/10/2018 [id number] Ambulatory [facility] ding:LAB Repository 04/03/2018 [id number] Ambulatory [facility] ding:LAB Repository 03/31/2018/03/31/20 [id number] Ambulatory [address] Repository 01/19/2018/01/20/20 [id number] Ambulatory [address] Repository 11/22/2017/11/23/19 [id number] Emergency [address] ding:ED Repository 11/22/2017/11/23/19 [id number] Emergency [address] [place] Repository 11/22/2017/11/23/19 [id number] Emergency [facility] [address] MEDICAL Repository CENTERBuildi ng:AKEDRoom: OTFBed: 04 11/18/2017 [id number] Inpatient [address] [place] [address] Encounter 2ERoom: System [id number]: Repository [id number] 11/18/2017 [id number] Ambulatory [facility] ding:LAB Repository 11/08/2017 [id number] Ambulatory [facility] ding:LAB Repository 10/21/2017/10/25/19 [id number] Ambulatory [address] [place] Repository 09/16/2017 [id number] Ambulatory [facility] Repository 08/31/2017 [id number] Ambulatory [facility] Repository 06/08/2017 [id number] [facility] ding:LAB Repository PAYERS PAYERS ENCOUNTER GUARANTOR PAYER SUBSCRIBER SOURCE 04/24/2018 AUTUMN [id number] Primary CATARINA [place] Insurance:ANTHEMPolic RUNKLEDOB: [facility] ahritha VELAZQUEZ y Number: [id number] Hospital 15901Usz: 330 [id number] Repository [phone] () Date:3338-10-42SM [address] [place] [address] 11039OZ: 04/24/2018 Secondary NOT GIVENUNK [place] Insurance:SELF PAY [facility] Number: Effective Repository Date:2018-04-24 04/10/2018 AUTUMN [id number] Primary CATARINA [place]UE [place] Insurance:ANTHEMPolic RUNKLEDOB: [facility] BEN ia y Number: [id number] Hospital 12449Rft: 330 [id number] Repository [phone] () Date:7677-65-20EY [address] [place] [address] 17875OT: 04/10/2018 Secondary NOT GIVENUNK [place] Insurance:SELF PAY [facility] Number: Effective Repository Date:2018-04-10 04/03/2018 AUTUMN [id number] Primary CATARINA [place] Insurance:ANTHEMPolic RUNKLEDOB: [facility] [place] Number: [id number] Hospital 862[address]Wdj: (394) [id number] Repository [phone] () Date:[id number] [address]WR: 04/03/2018 Secondary NOT GIVENUNK [place] Insurance:SELF PAY [facility] Number: Effective Repository Date:2018-04-03 11/22/2017 Autumn Dumonte140 Primary CATARINA [place] [address] Insurance:ANTHEMPolic RUNKLEDOB: [facility] [place] Number: [id number] Hospital 08[address]Deu: (365) [id number] Repository [phone] () Date:[id number] [address]SM: 11/22/2017 Secondary NOT GIVENUNK [place] Insurance:SELF PAY [facility] Number: Effective Repository Date:2017-11-22 11/22/2017 CATARINA R Primary CATARINA R [facility] RUNKLEDOB: Insurance:BLUE CARD RUNKLEDOB: Health System PPOPolicy Number: [id number] Repository [address] [id number] [place] Date: [address]Kxv: (HP) 11/18/2017 Catarina R Primary Catarina R [facility] RunkleDOB: Insurance:[place] RunkleDOB: System Cross Blue [id number] Repository [address] ShieldPolicy Number: [place], [place] Effective Date: [address]Pql: (HP) 11/18/2017 Autumn Dumonte140 Primary CATARINA [place] [address] Insurance:ANTHEMPolic RUNKLEDOB: [facility] [place] Number: [id number] Hospital 490[address]Jyx: (489) [id number] Repository [phone] (HP) Date:3077-78-19FT [address] [place] [address] [place] [address]SE: 11/18/2017 Secondary NOT GIVENUNK [place] Insurance:SELF PAY [facility] Number: Effective Repository Date:2017-11-18 11/08/2017 Autumn Nicole40 Primary CATARINA Zuly [address] Insurance:ANTHEMPolic RUNKLEDOB: [facility] haritha Velazquez y Number: [id number] Hospital 35[address]Jei: ([phone]) [id number] Repository [phone] (HP) Date:2931-79-05KM [address], [place] [address]RV: 11/08/2017 Secondary NOT GIVENUNK [place] Insurance:SELF PAY [facility] Number: Effective Repository Date:2017-11-08 09/16/2017 Catarina R Primary Catarina R [facility] RunkleDOB: Insurance:[place] RunkleDOB: System Cross Blue [id number] Repository [address] ShieldPolicy Number: HARITHA Velazquez Effective Date: [address]Czl: (HP) 08/31/2017 Catarina R Primary Catarina R [facility] RunkleDOB: Insurance:[place] RunkleDOB: System Cross Blue [id number] Repository [address] ShieldPolicy Number: HARITHA Velazquez Effective Date: [address]Gbi: (HP) 06/08/2017 Autumn Nicole40 Primary CATARINA [place] [address] Insurance:ANTHEMPolic RUNKLEDOB: [facility] haritha Velazquez y Number: [id number] Hospital 74[address]Tdn: (533) [id number] Repository [phone] (HP) Date:3386-44-00[address] [place] [address]LG: 06/08/2017 Secondary NOT GIVENUNK [place] Insurance:SELF PAY [facility] Number: Effective Repository Date:2017-06-08
== END ==
PROVIDERS: Family Provider Family Medicine; PCP Family Medicine; Referring Provider Internal Medicine Nephrology; Visit Provider Internal Medicine Nephrology
DX: N17.9 Acute kidney failure, unspecified (principal)
CPT/HCPCS: 82570; 84300

== ENCOUNTER → 2018-04-24 10:54 | Outpatient (CLI) | payer BC, SELFPAY ==
[2018-04-24 12:20] LABS: Albumin, Serum 3.9 g/dL (3.2-5.0); BUN 29 mg/dL (7-18); BUN/Creat Ratio 7.4 RATIO (10-20); Calcium,Total 10.1 mg/dL (8.5-10.1); Chloride 104 mmol/L (98-107); Creatinine, Serum 3.92 mg/dL (0.55-1.02); EST Glomerular Filtration Rate 13 mL/min (>60); Est Glom Filt Rate - Afr Amer 15 mL/min (>60); Glucose 95 mg/dL (74-106); Phosphorus 3.6 mg/dL (2.5-4.9); Potassium 4.7 mmol/L (3.5-5.1); Sodium Level 136 mmol/L (136-145)
== END ==
PROVIDERS: Family Provider Family Medicine; PCP Family Medicine; Referring Provider Internal Medicine Nephrology; Visit Provider Internal Medicine Nephrology
DX: N18.4 Chronic kidney disease, stage 4 (severe) (principal)
CPT/HCPCS: 36415; 80069

== ENCOUNTER → 2018-07-28 09:58 | Outpatient (CLI) | payer BC, SELFPAY ==
[2018-07-28 11:10] LABS: Hematocrit 31.6 % (37-47); Hemoglobin 10.1 g/dl (12.0-15.0); Mean Corpuscular Volume 87.5 fL (81-99); Mean Platelet Vol. 10.6 fl (6.2-12.0); Platelet Count 363 K/mm3 (150-450); RBC Distribution Width CV 14.1 % (11.6-14.6); RBC Distribution Width SD 44.9 fl (35.1-43.9); Red Blood Count 3.61 M/mm3 (4.2-5.4); White Blood Count 8.6 K/mm3 (4.4-11.0)
[2018-07-28 11:14] LABS: Scan Indicated on CBC? Y/N NO
[2018-07-28 11:29] LABS: Albumin, Serum 3.9 g/dL (3.2-5.0); BUN 38 mg/dL (7-18); BUN/Creat Ratio 9.2 RATIO (10-20); Calcium,Total 9.9 mg/dL (8.5-10.1); Chloride 102 mmol/L (98-107); Creatinine, Serum 4.11 mg/dL (0.55-1.02); EST Glomerular Filtration Rate 12 mL/min (>60); Est Glom Filt Rate - Afr Amer 14 mL/min (>60); Glucose 84 mg/dL (74-106); Magnesium 1.7 mg/dL (1.6-2.6); Phosphorus 3.4 mg/dL (2.5-4.9); Potassium 3.9 mmol/L (3.5-5.1); Sodium Level 134 mmol/L (136-145)
[2018-07-28 11:45] LABS: Vitamin D,25 Hydroxy 41.1 ng/mL (29.95-100.01)
[2018-07-28 11:46] LABS: PTHIN 110.3 pg/mL (18.4-80.1)
== END ==
PROVIDERS: Family Provider Family Medicine; PCP Family Medicine; Referring Provider Internal Medicine Nephrology; Visit Provider Internal Medicine Nephrology
DX: N18.4 Chronic kidney disease, stage 4 (severe) (principal); D63.1 Anemia in chronic kidney disease; N25.81 Secondary hyperparathyroidism of renal origin; E83.42 Hypomagnesemia
CPT/HCPCS: 36415; 80069; 82043; 82306; 82570; 83735; 83970; 85027

== ENCOUNTER → 2018-09-27 10:03 | Outpatient (CLI) | payer BC, SELFPAY ==
[2018-09-27 10:46] LABS: Hematocrit 32.8 % (37-47); Hemoglobin 10.6 g/dl (12.0-15.0); Mean Corp Hgb Conc 32.3 g/gl (32-36); Mean Corpuscular Hgb 27.7 pg (27.0-32.0); Mean Corpuscular Volume 85.6 fL (81-99); Mean Platelet Vol. 11.4 fl (6.2-12.0); Platelet Count 341 K/mm3 (150-450); RBC Distribution Width CV 13.4 % (11.6-14.6); RBC Distribution Width SD 40.9 fl (35.1-43.9); Red Blood Count 3.83 M/mm3 (4.2-5.4); White Blood Count 10.5 K/mm3 (4.4-11.0)
[2018-09-27 10:47] LABS: Scan Indicated on CBC? Y/N NO
[2018-09-27 11:05] LABS: Microalbumin:Creatinine Ratio 728.3 mg/g CRE (<30 mg/g CRE); Protein, Urine (Random) 23.4 mg/dL (<11.9)
[2018-09-27 11:07] LABS: Albumin, Serum 3.9 g/dL (3.2-5.0); BUN 49 mg/dL (7-18); BUN/Creat Ratio 12.7 RATIO (10-20); Calcium,Total 10.7 mg/dL (8.5-10.1); Chloride 100 mmol/L (98-107); Creatinine, Serum 3.87 mg/dL (0.55-1.02); EST Glomerular Filtration Rate 13 mL/min (>60); Est Glom Filt Rate - Afr Amer 15 mL/min (>60); Glucose 94 mg/dL (74-106); Magnesium 1.5 mg/dL (1.6-2.6); Phosphorus 3.3 mg/dL (2.5-4.9); Potassium 4.1 mmol/L (3.5-5.1); Sodium Level 136 mmol/L (136-145)
[2018-09-27 11:21] LABS: Vitamin D,25 Hydroxy 46.1 ng/mL (29.95-100.01)
[2018-09-27 11:22] LABS: PTHIN 70.9 pg/mL (18.4-80.1)
== END ==
PROVIDERS: Family Provider Family Medicine; PCP Family Medicine; Referring Provider Internal Medicine Nephrology; Visit Provider Internal Medicine Nephrology
DX: N17.9 Acute kidney failure, unspecified (principal); N18.4 Chronic kidney disease, stage 4 (severe); D63.1 Anemia in chronic kidney disease; N25.81 Secondary hyperparathyroidism of renal origin; E83.42 Hypomagnesemia
CPT/HCPCS: 36415; 80069; 82043; 82306; 82570; 83735; 83970; 84156; 85027

== ENCOUNTER → 2018-10-27 10:09 | Outpatient (CLI) | payer BC, SELFPAY ==
[2018-10-27 10:51] LABS: Hematocrit 32.9 % (37-47); Hemoglobin 10.5 g/dl (12.0-15.0); Mean Corp Hgb Conc 31.9 g/gl (32-36); Mean Corpuscular Hgb 27.2 pg (27.0-32.0); Mean Corpuscular Volume 85.2 fL (81-99); Mean Platelet Vol. 10.8 fl (6.2-12.0); Platelet Count 404 K/mm3 (150-450); RBC Distribution Width SD 39.8 fl (35.1-43.9); Red Blood Count 3.86 M/mm3 (4.2-5.4)
[2018-10-27 10:52] LABS: Scan Indicated on CBC? Y/N NO
[2018-10-27 11:13] LABS: Albumin, Serum 3.6 g/dL (3.2-5.0); BUN 24 mg/dL (7-18); BUN/Creat Ratio 5.9 RATIO (10-20); Chloride 104 mmol/L (98-107); Creatinine, Serum 4.06 mg/dL (0.55-1.02); EST Glomerular Filtration Rate 12 mL/min (>60); Est Glom Filt Rate - Afr Amer 15 mL/min (>60); Glucose 92 mg/dL (74-106); Magnesium 1.3 mg/dL (1.6-2.6); Phosphorus 2.8 mg/dL (2.5-4.9); Potassium 4.3 mmol/L (3.5-5.1); Sodium Level 133 mmol/L (136-145)
[2018-10-27 11:20] LABS: Microalbumin,Random Urine 78.9 mg/L (NO RANGE EST.); Microalbumin:Creatinine Ratio 502.5 mg/g CRE (<30 mg/g CRE)
[2018-10-27 11:22] LABS: PTHIN 95.2 pg/mL (18.4-80.1); Vitamin D,25 Hydroxy 36.3 ng/mL (29.95-100.01)
== END ==
PROVIDERS: Family Provider Family Medicine; PCP Family Medicine; Referring Provider Internal Medicine Nephrology; Visit Provider Internal Medicine Nephrology
DX: N18.4 Chronic kidney disease, stage 4 (severe) (principal); N25.81 Secondary hyperparathyroidism of renal origin; E83.42 Hypomagnesemia; D63.1 Anemia in chronic kidney disease
CPT/HCPCS: 36415; 80069; 82043; 82306; 82570; 83735; 83970; 85027

== ENCOUNTER 2024-02-02 08:52 | Emergency (ER) | payer BC, SELFPAY ==
[2024-02-02 08:52] VITALS: BP 142/66; PULSE 80; RESP 14; TEMP 36.7; O2SAT 98; BMI 35.1
--- NOTE | 2024-02-02 08:56 | EKG12_ITS ---
Test Reason : ABD PAIN Blood Pressure : / mmHG Vent. Rate : 067 BPM Atrial Rate : 067 BPM P-R Int : 138 ms QRS Dur : 076 ms QT Int : 346 ms P-R-T Axes : 060 015 127 degrees QTc Int : 365 ms Normal sinus rhythm Nonspecific T wave abnormality Abnormal ECG Confirmed by KRISTEN ANTHONY, JOSE ([id number]), newspaper editor YASHIRA OLIVER ([id number]) on 02/03/2024 2:13:46 PM Referred By: TB Confirmed By:JOSE PETERSON MD
--- NOTE | 2024-02-02 09:02 | EX.ED.DYSGE1 ---
HPI History of Present Illness Chief Complaint: Abd Pain Narrative Narrative: Patient is a 63-year-old female past medical history of chronic kidney disease, hypertension, hypothyroidism who presented to the emerged part with a chief complaint of abdominal pain. Patient states that she has had abdominal pain for approximately 3 weeks now ever since her had . She states that eating exacerbates her pain. States that she had nausea associate with this. States that she had a colonoscopy back in 2021 had some polyps at that point time. Patient states that she is post to be has been evaluated for potential dialysis however she asked them to hold off so she could be with her . She states that she does have an appointment at the end of the month with her clinical psychologist licensed. Patient rates her pain an 8 out of 10. PFSH PFSH Home Medications ?Medication ?Instructions ?Recorded ?Last Taken ?Type levothyroxine 50 mcg tablet 50 mcg PO DAILY 11/22/17 02/01/24 History magnesium oxide 400 mg (241.3 mg 400 mg PO TID 11/22/17 02/02/24 History magnesium) tablet acetaminophen 500 mg tablet 1,000 mg PO Q6H PRN pain 02/02/24 02/02/24 History amlodipine 10 mg tablet 10 mg PO DAILY 02/02/24 02/01/24 History amoxicillin 875 mg-potassium 1 tab PO Q12H 7 days #14 tabs 02/02/24 Unknown Rx clavulanate 125 mg tablet ergocalciferol (vitamin D2) 1,250 1,250 mcg PO .COMPLEX 02/02/24 01/20/24 History mcg (50,000 unit) capsule hyoscyamine sulfate 0.125 mg tablet 0.125 mg PO Q6H PRN dyspepsia 5 02/02/24 Unknown Rx days #20 tabs omeprazole 40 mg capsule,delayed 40 mg PO DAILY PRN heartburn 02/02/24 02/01/24 History release ondansetron 4 mg disintegrating 4 mg PO Q6H PRN nausea and 02/02/24 Unknown Rx tablet vomiting #20 tabs ondansetron 4 mg disintegrating 4 mg PO Q8H PRN nausea and vomiting 02/02/24 02/02/24 History tablet psyllium (Hydrocil Instant oral 1 packet PO DAILY PRN constipation 02/02/24 02/01/24 History packet) rosuvastatin 20 mg tablet 20 mg PO DAILY 02/02/24 02/01/24 History sodium bicarbonate 650 mg tablet 650 mg PO 4X/DAY 02/02/24 02/02/24 History tramadol 50 mg tablet 50 mg PO Q6H PRN pain 3 days #12 02/02/24 Unknown Rx tabs Allergy/AdvReac Type Severity Reaction Status Date / Time acetaminophen (From Percocet) Allergy Shortness Verified 02/02/24 08:53 of breath codeine Allergy Shortness Verified 02/02/24 08:53 of breath hydromorphone (From Dilaudid) Allergy Shortness Verified 02/02/24 08:53 of breath morphine Allergy Shortness Verified 02/02/24 08:53 of breath moxifloxacin (From Avelox) Allergy Shortness Verified 02/02/24 08:53 of breath oxycodone (From Percocet) Allergy Shortness Verified 02/02/24 08:53 of breath Penicillins Allergy Shortness Verified 02/02/24 08:53 of breath Social History Smoking Status: Current every day smoker tobacco type: cigarettes ROS ROS ED ROS Narrative Constitutional: Denies any fevers, chills, headaches, lightness, dizziness Eyes: Denies double vision blurry vision changes vision Cardiovascular: Denies chest pain Respiratory: Denies coughing wheezing shortness of breath Abdomen: Complains of abdominal pain as noted above as well as nausea denies any diarrhea denies dark tarry stools denies blood in her stool : patient states that she has had decreased urine output lately Neurological: Denies numbness, weakness, tingling Musculoskeletal: Denies back pain Skin: Denies rashes or lesions EXAM Physical Exam Narrative Exam Narrative: general: Patient lying in bed rest comfortably did not appear to be acute distress Head: Atraumatic, normocephalic Eyes: PERRL bilateral, EOMI bilateral, no conjunctival injection noted Neck: Soft, supple, trachea midline Cardiovascular: Regular rate and rhythm no murmurs gallops rubs noted Respiratory: Clear to auscultation bilaterally Abdomen: Soft, nondistended, tenderness palpation left lower quadrant as well as suprapubic region no rebound or guarding on exam Extremities: +5/5 strength noted in the bilateral upper and lower extremities, no pedal edema on exam Neurological: Patient follow commands knew that she was at [facility] there is 2023 Skin: Warm, dry, intact Const Vital Signs: 02/02/24 08:52 02/02/24 10:52 02/02/24 12:00 Temperature 98.1 F Temperature Source Temporal Pulse Rate 80 65 65 Respiratory Rate 14 15 14 Blood Pressure 142/66 H 110/76 112/72 Blood Pressure Mean 91 87 85 Pulse Ox 98 97 98 Oxygen Delivery Method Room Air Room Air Room Air MDM MDM MDM Narrative Medical decision making narrative: Patient is a 63-year-old female who presents to the emergency department chief complaint of abdominal pain. Patient will have a workup performed here on the differential diagnose includes but limited to UTI, diverticulitis, small bowel obstruction, acute renal failure. Once workup is obtained reviewed she will be reevaluated. Patient CBC with significant leukocytosis of 12,000, hemoglobin 9.7, platelet count normal at 3 1. Patient sodium was noted 136, potassium normal 4.6, creatinine was elevated to 4 however she has underlying chronic kidney disease and is going to be likely placed on dialysis in the near future she stated. Patient's total bilirubin was 1.30 with an AST and ALT of [address] abdomen pelvis with IV contrast was reviewed showed findings consistent with acute noncomplicated sigmoid diverticulitis with small amount of free fluid in the pelvis. Bilateral renal cysts although there are atypical cystic structures and solid nodule in the left kidney correlation with ultrasound is recommended. Patient's EKG reviewed and independently interpreted by myself which showed normal sinus rhythm with a rate of 67 bpm. On reevaluation the patient and she states that she has not been tolerating oral intake she has not been eating much and drinking fairly little. Also given that she is making very little urine and is likely needing dialysis do believe she will warrant admission for further evaluation management. Patient will be given Augmentin here in the emergency department. States that she has not had a penicillin since being a child. Called and discussed case with hospitalist Dr. Rios who states that the patient should be given oral challenge if she tolerates that she can be discharged home. Patient was given oral challenge here and had no vomiting. Patient tolerated Augmentin here without any concern for an allergic reaction. Patient will be sent a prescription for tramadol as she states that she has tolerated this in the past and does not tolerate other pain medication. Should be given a prescription for Zofran. She was encouraged to call her clinical psychologist licensed and to have a close follow-up appointment. She was encouraged to orally hydrate with water. She was encouraged return for worsening symptoms or other concerns. She and her family ember at bedside are agreeable with this plan. All question concerns answered she is discharged home in stable condition. Augmentin was sent to her pharmacy as well. Lab Data Labs: Laboratory Results - last 24 hr 02/02/24 02/02/24 09:15 11:36 WBC 12.2 H RBC 3.51 L Hgb 9.7 L Hct 31.5 L MCV 89.7 MCH 27.6 MCHC 30.8 L RDW Std Deviation 44.0 H RDW Coeff of Beatriz 13.3 Plt Count 381 MPV 10.5 Immature Gran % (Auto) 0.700 Neut % (Auto) 77.2 H Lymph % (Auto) 15.0 L [place] % (Auto) 6.1 Eos % (Auto) 0.7 Baso % (Auto) 0.3 Absolute Neuts (auto) 9.4 H Absolute Lymphs (auto) 1.83 Nucleated RBC % 0 Sodium 136 Potassium 4.6 Chloride 108 H Carbon Dioxide 20.0 L Anion Gap 8 BUN 26 H Creatinine 4.00 H Estim Creat Clear Calc 15.72 Est GFR (MDRD) Af Amer 15 L Est GFR (MDRD) Non-Af 12 L BUN/Creatinine Ratio 6.5 L Glucose 99 Calcium 9.4 Total Bilirubin 1.30 H AST 5 L ALT 7 L Alkaline Phosphatase 118 H Total Protein 6.9 Albumin 2.9 L Globulin 4.0 Albumin/Globulin Ratio 0.7 L Lipase 30 Urine Color Yellow Urine Clarity Clear Urine pH 7.0 Ur Specific [place] 1.005 Urine Protein 30 H Urine Glucose (UA) Normal Urine Ketones Negative Urine Occult Blood Negative Urine Nitrite Negative Urine Bilirubin Negative Urine Urobilinogen Normal Ur Leukocyte Esterase Negative Urine RBC 0 SEEN Urine WBC 0 SEEN Ur Squamous Epith Cells 0 SEEN Urine Bacteria 0 SEEN Urine Mucus 0 SEEN Radiography Diagnostic Testing: Clinical Impression(s) from Imaging Studies Abdomen/Pelvis CT 02/02/24 10:01 IMPRESSION: Findings in keeping with acute noncomplicated sigmoid diverticulitis with a small amount of free fluid in the pelvis. Bilateral renal cysts although there are atypical cystic and solid nodule in the left kidney. Correlation with ultrasound recommended. Electronically Signed: Joni Myers MD at 10:28 EDT , Discharge Plan Triage Chief Complaint: Abd Pain ED Provider: Alec Parks Dx/Rx/DC Orders Clinical Impression: Chronic kidney disease (CKD), Diverticulitis, Nausea & vomiting Prescriptions: New tramadol 50 mg tablet 50 mg PO Q6H PRN (Reason: pain) 3 Days Qty: 12 0RF amoxicillin-pot clavulanate 875-125 mg tablet 1 tab PO Q12H 7 Days Qty: 14 0RF ondansetron 4 mg tablet,disintegrating 4 mg PO Q6H PRN (Reason: nausea and vomiting) Qty: 20 0RF hyoscyamine sulfate 0.125 mg tablet 0.125 mg PO Q6H PRN (Reason: dyspepsia) 5 Days Qty: 20 0RF No Action magnesium oxide 400 MG tablet 400 mg PO TID levothyroxine 50 MCG tablet 50 mcg PO DAILY Hydrocil Instant Packet 1 packet PO DAILY PRN (Reason: constipation) Rx Instructions: mix into at least 8 oz of water or juice before administering acetaminophen 500 mg tablet 1,000 mg PO Q6H PRN (Reason: pain) ergocalciferol (vitamin D2) 1,250 mcg (50,000 unit) capsule 1,250 mcg PO .COMPLEX Rx Instructions: 1,250 mcg orally EVERY OTHER TUESDAY; omeprazole 40 mg capsule,delayed release(DR/EC) 40 mg PO DAILY PRN (Reason: heartburn) amlodipine 10 mg tablet 10 mg PO DAILY ondansetron 4 mg tablet,disintegrating 4 mg PO Q8H PRN (Reason: nausea and vomiting) rosuvastatin 20 mg tablet 20 mg PO DAILY sodium bicarbonate 650 mg tablet 650 mg PO 4X/DAY Primary Care Provider: Monster Freire Referrals: Monster Freire MD [Primary Care Provider] - Activity Restrictions/Additional Instructions: Take prescriptions as prescribed. Follow-up with your clinical psychologist licensed in the outpatient setting as we discussed here. Ensure oral hydration with plenty of water. Return with worsening symptoms or other concerns. Follow-up with primary care physician as well. Print Language: Albanian Disposition Disposition: Home, Self Care
[2024-02-02 09:29] LABS: Absolute Lymphocyte Count 1.83 X10^3/uL (0.83-4.51); Absolute Neutrophil Count 9.4 X10^3/uL (2.0-7.7); Basophil# 0.04 X10^3/uL; Basophil% 0.3 % (0-1); Eosinophil# 0.08 X10^3/uL; Eosinophils% 0.7 % (0-5); Hematocrit 31.5 % (37-47); Hemoglobin 9.7 g/dL (12.0-15.0); Lymphocyte # 1.83 X10^3/ul (0.83-4.51); Mean Corp Hgb Conc 30.8 g/dL (32-36); Mean Corpuscular Hgb 27.6 pg (27.0-32.0); Mean Corpuscular Volume 89.7 fL (81-99); Mean Platelet Vol. 10.5 fl (6.2-12.0); Monocyte# 0.74 X10^3/uL; Monocyte% 6.1 % (0-10); NRBC Flagged by Analyzer 0 % (0-5); Neutrophil % 77.2 % (47-70); Platelet Count 381 K/mm3 (150-450); RBC Distribution Width CV 13.3 % (11.6-14.6); Red Blood Count 3.51 M/mm3 (4.2-5.4); White Blood Count 12.2 K/mm3 (4.4-11.0)
[2024-02-02 09:42] LABS: ALB/GLOB Ratio 0.7 RATIO (0.9-2.4); AST(SGOT) 5 U/L (15-37); Alanine Aminotransfer ALT/SGPT 7 U/L (13-56); Albumin, Serum 2.9 g/dL (3.2-5.0); Alkaline Phosphatase 118 U/L (45-117); Anion Gap 8 (5-15); BUN 26 mg/dL (7-18); BUN/Creat Ratio 6.5 RATIO (10-20); Calcium,Total 9.4 mg/dL (8.5-10.1); Chloride 108 mmol/L (98-107); EST Glomerular Filtration Rate 12 mL/min (>60); Est Glom Filt Rate - Afr Amer 15 mL/min (>60); Estimated Creatinine Clearance 15.72 ml/min; Glucose 99 mg/dL (74-106); Lipase 30 U/L (13-75); Potassium 4.6 mmol/L (3.5-5.1); Protein, Total 6.9 g/dL (6.4-8.2); Sodium Level 136 mmol/L (136-145)
--- NOTE | 2024-02-02 10:01 | CT_ITS ---
STUDY: CT ABDOMEN AND PELVIS WITH CONTRAST REASON FOR EXAM: Female, 63 years old. LLQ pain RADIATION DOSAGE (If Supplied By Facility): CTDIvol = ( 15.41 ) mGy, DLP = ( 1096.90 ) mGycm TECHNIQUE: Transaxial images were obtained from the dome of the diaphragm to the symphysis pubis without oral contrast. IV 75mL Isovue-300 was administered. Sagittal and coronal images were reconstructed. Individualized dose optimization techniques were used for this CT. COMPARISON: None. FINDINGS: The visualized lung bases are unremarkable. Coronary artery calcification. Normal liver. Normal gallbladder and extrahepatic biliary system. Normal spleen. Normal pancreas. There is symmetric enlargement of the adrenal glands suggesting adrenal hyperplasia. Bilateral renal cysts. There is a nontypical hypodense nodule in the lateral aspect of the left kidney with increased markings in the surrounding fat. This not a typical cyst. Correlation with ultrasound is recommended for further evaluation. There is also evidence of a 1.6 cm x 2.4 cm solid nodule in the posterior inferior aspect of the left kidney. Correlation with ultrasound recommended. Normal visualized stomach. Normal small intestine. There is diverticulosis, with thickening of the colon wall, and pericolonic inflammation changes consistent with acute diverticulitis. The appendix is visualized and appears normal. Normal abdominal aorta. Normal inferior vena cava. Normal retroperitoneum. Normal urinary bladder. The patient is status post hysterectomy. Minimal amount of free fluid is seen in the cul-de-sac. There is a small umbilical hernia containing fat. Normal osseous structures. CT/Abdomen/Pelvis W IV Cont ONLY IMPRESSION: Findings in keeping with acute noncomplicated sigmoid diverticulitis with a small amount of free fluid in the pelvis. Bilateral renal cysts although there are atypical cystic and solid nodule in the left kidney. Correlation with ultrasound recommended. Electronically Signed: Joni Myers MD at 10:28 EDT ,
[2024-02-02] MEDS: Ondansetron 4 MG/2 ML Vial IV ×2 (10:11→10:22)
[2024-02-02] MEDS: 0.9% Normal Saline (1000mL) 1,000 ML 999 ML IV (10:14)
[2024-02-02] MEDS: fentaNYL 100 MCG/2 ML Ampul 50 MCG IV ×2 (10:23→13:33)
[2024-02-02 10:52] VITALS: BP 110/76; PULSE 65; RESP 15; O2SAT 97
--- NOTE | 2024-02-02 11:05 | NURSING ---
DR MIKAEL LUCAS
[2024-02-02 11:39] LABS: Bacteria 0 SEEN /hpf (None Seen); Mucous, Urine 0 SEEN /hpf (<or=2+); Red Blood Cells-Urine 0 SEEN /hpf (0-5); Squamous Epithelial Cells - UA 0 SEEN /hpf (5-10); White Blood Cells 0 SEEN /hpf (0-5)
[2024-02-02 11:42] LABS: Color, Urine Yellow (Yellow); Glucose, Dipstick Normal (Normal); Ketone-Dipstick Negative (Negative); Leukocyte Esterase-Dipstick Negative /ul (Negative); Nitrite-Dipstick Negative (Negative); Occult Blood-Urine Negative /ul (Negative); Protein-Dipstick 30 mg/dl (Negative); Specific Gravity, Urine 1.005 (1.002-1.030); Urine Bilirubin Dipstick Negative (Negative); Urine Clarity Clear (Clear); Urine Urobilinogen Normal (Normal)
[2024-02-02 12:00] VITALS: BP 112/72; PULSE 65; RESP 14; O2SAT 98
[2024-02-02] MEDS: Amox/Clavulanate 875 MG Tablet PO (12:39)
[2024-02-02 13:50] VITALS: BP 127/72; PULSE 79; RESP 16; TEMP 36.6; O2SAT 99
== END 2024-02-02 14:00 | disposition home or self-care (01) ==
PROVIDERS: Emergency Provider Emergency Medicine; PCP Family Medicine; Visit Provider Emergency Medicine
DX: K57.32 Diverticulitis of large intestine without perforation or abscess without bleeding (principal); I12.9 Hypertensive chronic kidney disease with stage 1 through stage 4 chronic kidney disease, or unspecified chronic kidney disease; N18.9 Chronic kidney disease, unspecified; N28.1 Cyst of kidney, acquired; F17.210 Nicotine dependence, cigarettes, uncomplicated; Z79.890 Hormone replacement therapy; Z79.899 Other long term (current) drug therapy
CPT/HCPCS: 74177; 80053; 81001; 83690; 85025; 93005; 96361; 96374; 99283; J7030; Q9967; A4216; J2405

== ENCOUNTER 2025-01-15 21:50 | Observation (INO) | payer BC, SELFPAY ==
[2025-01-15] VITALS (11 sets, daily range): BP systolic 121–146; BP diastolic 51–79; PULSE 68–77; RESP 13–20; TEMP 36.7; O2SAT 90–98; BMI 37.1
--- NOTE | 2025-01-15 22:00 | CT_ITS ---
PROCEDURE: STROKE BRAIN/HEAD WITHOUT CONT 01/15/2025 REASON FOR EXAM: NEURO DEFICIT, ACUTE, STROKE SUSPECTED TECHNIQUE: Procedure Code: CTBR.ST Modality: CT Procedure: STROKE BRAIN/HEAD WITHOUT CONT Coronal and Sagittal reconstruction series were provided. One or more dose reduction techniques were used (e.g., Automated exposure control, adjustment of the mA and/or kV according to patient size, use of iterative reconstruction technique. RADIATION DOSE SUMMARY: CTDlvol: 44.99 mGy DLP: 829.85 mGycm COMPARISON: None. FINDINGS: No acute intracranial hemorrhage, extra-axial collection, mass effect or evidence of acute infarct. Ventricles and subarachnoid spaces are normal in size. Orbital contents are unremarkable. Intact skull base and calvarium. Mild scattered peripheral mucosal thickening in the paranasal sinuses, without fluid levels. No mastoid effusions. CT/STROKE Brain/Head without Cont IMPRESSION: No acute intracranial abnormality. Reading Location: [id number]
--- NOTE | 2025-01-15 22:00 | EKG12_ITS ---
Test Reason : STROKE ALERT Blood Pressure : */* mmHG Vent. Rate : 75 BPM Atrial Rate : 75 BPM P-R Int : 132 ms QRS Dur : 80 ms QT Int : 396 ms P-R-T Axes : 23 18 67 degrees QTcB Int : 442 ms Normal sinus rhythm Nonspecific T wave abnormality Abnormal ECG Confirmed by Shaun Freedman ([id number]), dictionary editor ANDREW MCMULLEN ([id number]) on 01/17/2025 5:57:43 AM Referred By: Confirmed By: Shaun Freedman
--- OUTSIDE RECORDS SUMMARY | 2025-01-15 22:05 | XMS RPT_ITS | CCD ---
Author Organization [facility] Care Team Providers Care Kiln Remover Name Role Phone Camille Goodman Primary Care Provider SALONI HUSSEIN Attending Unavailable PROVIDER, UNKNOWN Referring Unavailable Gunning, Camille Primary Care Unavailable PROVIDER, UNKNOWN Referring Unavailable Gungamaliel, Camille Primary Care Unavailable SALONI HUSSEIN Attending Unavailable GunCamille alston MD Primary Care Provider Camille Goodman MD Primary Care Provider CAMILLE GOODMAN Attending Unavailable GUNCAMILLE ALSTON Referring Unavailable GUNGAMALIEL, CAMILLE Primary Care Unavailable GUNGAMALIEL, CAMILLE Primary Care Unavailable ANGEL HERNANDEZ Admitting Unavailable TANPHAICHITR, NATTHAVAT Consulting Unavaila NAT Vitale Attending Unavailable Gunning Camille ANTHONY Primary Care Provider ZIYAD ANTHONY, DR OBRIEN Primary Care Physician REJI WELCH DO Attending Unavailable ZIYAD ANTHONY, DR OBRIEN Primary Care Unavailab le GunCamille alston Primary Care Unavailable Alec Parks Attending Unavailable JASIEL RAY Referring Unavailabl e GUNNING, CAMILLE Philip Primary Care Unavailable GUNNING, CAMILLE Philip Primary Care Unavailable GUNNING, CAMILLE Philip Primary Care Unavailable GUNNING, CAMILLE Philip Primary Care Unavailable GUNNING, CAMILLE Philip Primary Care Unavailable GUNNING, CAMILLE Philip Primary Care Unavailable JASIEL RAY R Referring Unavailabl e GUNNING, CAMILLE Philip Primary Care Unavailable FLORJOO BENITEZPRAJANICE R Referring Unavailabl e GUNNING, CAMILLE Philip Primary Care Unavailable Tamera CASTELAN Attending Unavailable GUNGAMALIEL, CAMILLE Philip Primary Care Unavailable Allergies Allergy Classification Reported Allergen(s) Allergy Type Date of Onset Reaction(s) Facility (20 sources) Acetaminophen / oxyCODONE; Translations: [OXYCODONE-ACETAM INOPHEN] Drug Allergy 10-18-19 Nausea And Vomiting, Unknown, Hives, GI Upset [place], [place] (20 sources) Codeine; Translations: [codeine] Drug Allergy 10-18-19 Other (See Comments), Unknown, Cough, Hives, Nausea And Vomiting, GI Upset [place], [place] (20 sources) HYDROmorphone; Translations: [hydromorphone] Drug Allergy 10-18-19 Nausea And Vomiting, Other: See Comments [place], [place] (20 sources) Morphine; Translations: [morphine] Drug Allergy 10-18-19 Nausea And Vomiting, Unknown, Hives [place] (20 sources) moxifloxacin; Translations: [moxifloxacin] Drug Allergy 10-18-19 Other (See Comments), Nausea And Vomiting, Hives, Vomiting [place], [place] (15 sources) Penicillins; Translations: [PENICILLINS] Propensity to adverse reactions to drug 10-18-19 Other (See Comments) [place], [place] (7 sources) HYDROmorphone; Translations: [HYDROMORPHONE (BULK)] Drug Allergy 10-18-[address] [facility] (7 sources) moxifloxacin; Translations: [MOXIFLOXACIN HCL] Drug Allergy 10-18-[address] [facility] (2 sources) Penicillins Drug Intolerance 10-18-[address] [facility] (5 sources) Penicillins Drug Intolerance 10-18-19 Hives, Nausea Only [facility] (1 source) Acetaminophen / oxyCODONE; Translations: [acetaminophen-ox ycodone] Drug Allergy [facility] (1 source) Penicillin; Translations: [penicillins] Drug Allergy [facility] (3 sources) Acetaminophen; Translations: [ACETAMINOPHEN] Drug Allergy 02-02-20 [facility] (1 source) Codeine Drug Allergy 02-02-20 [facility] (1 source) HYDROmorphone Drug Allergy 02-02-20 [facility] (1 source) Morphine Drug Allergy 02-02-20 [facility] (1 source) moxifloxacin Drug Allergy 02-02-20 [facility] (3 sources) oxyCODONE; Translations: [OXYCODONE] Drug Allergy 02-02-20 [facility] (1 source) Penicillins Drug allergy (disorder) 02-02-20 [facility] (3 sources) Penicillins Drug Intolerance 10-18-[address] [facility] (2 sources) Acetaminophen Drug Allergy 02-02-[address] [facility] (2 sources) oxyCODONE Drug Allergy 02-02-[address] [facility] Medications Current Medications Medication Drug Class(es) Dates Sig (Normalized) Sig (Original) acetaminophen 325 mg oral tablet (20 sources) Start: 09-27-2022 End: 09-29-2022 take 1 tablet by mouth every four hours as needed for pain acetaminophen (Tylenol) tablet 650 mg Start: 01-20-2022 acetaminophen (TYLENOL) tablet 1,000 mg Start: 07-20-2021 take 650 mg by mouth every four hours as needed, then take 4000 mg by mouth every twenty-four hours as needed 650 mg, Oral, EVERY 4 HOURS PRN, Starting on Tue07/20/21 at 0258, Until Discontinued, Pain Mild (1-3), Fever Maximum dose of acetaminophen is 4000 mg from all sources in 24 hours. Start: 12-11-2018 take 650 mg by mouth every four hours as needed for pain, then take 4000 mg by mouth every twenty-four hours as needed for pain 650 mg, Oral, EVERY 4 HOURS PRN, Pain Mild (1-3), fever or mild pain, Starting Tue12/11/18 at 0039 Maximum dose of acetaminophen is 4000 mg from all sources in 24 hours. Start: 11-19-2017 End: 09-28-2024 acetaminophen (TYLENOL) 325 mg tablet Take 650 mg by mouth. 11/19/2017 09/28/2024 Discontinued Comment on above: Take 650 mg by mouth . ALPRAZolam 0.25 mg disintegrating oral tablet (1 source) Benzodiazepine Start: 01-21-20 ALPRAZolam (NIRAVAM) dissolvable tablet 0.25 mg amLODIPine 10 mg oral tablet (20 sources) Dihydropyridine Calcium Channel Sandra Start: 07-23-19 End: 09-30-19 take 1 tablet by mouth every twenty-four hours amLODIPine (Norvasc) 10 MG tablet Take 10 mg by mouth Every 24 hours. 0 07/22/2021 Active Start: 07-22-2021 take 1 tablet by mariangel th once daily amLODIPine (NORVASC) 10 MG tablet Take 1 tablet by mouth daily 30 tablet 3 07/22/2021 Active Start: 11-11-2017 End: 07-21-2021 amLODIPine (NORVASC) 5 mg ta blet 11/11/2017 Active Start: 09-08-2017 End: 07-21-2021 amLODIPine (NORVASC) 2.5 MG tablet 5 mg daily 0 09/08/2017 07/21/2021 Discontinued (Stop Taking at Discharge) Start: 09-08-2017 take 2.5 mg by mouth twice daily 2.5 mg, Oral, 2 TIMES DAILY, First dose on Tue12/11/18 at 0900 calcitriol 0.17848 mg oral capsule (9 sources) Vitamin D3 Analog Start: 12-11-2018 take 0.25 ug by mouth once 0.25 mcg, Oral, EVERY MWF, First dose on Tue12/11/18 at 0900 Start: 10-05-2017 End: 07-21-2021 calcitRIOL (ROCALTROL) 0.25 MCG capsule TAKE 2 CAPSULE ONCE A DAY 0 10/05/2017 07/21/2021 Discontinued (Stop Taking at Discharge) cefdinir 300 mg oral capsule (1 source) Cephalosporin Antibacterial Start: 12-12-2018 End: 12-22-2018 take 1 capsule by mouth twice daily cefdinir (OMNICEF) 300 MG capsule Take 1 capsule by mouth 2 times daily for 10 days 20 capsule 0 12/12/2018 12/22/2018 Active dicyclomine hydrochloride 10 mg oral capsule (5 sources) Anticholinergic Start: 10-01-2021 take 2 capsules by mouth every six hours as needed dicyclomine (BENTYL) 10 MG capsule Take 2 capsules by mouth every 6 hours as needed (cramps) 20 capsule 0 10/01/2021 Active 1 ml diphenhydrAMINE hydrochloride 50 mg/ml cartridge (1 source) Histamine-1 Receptor Antagonist Start: 01-20-2022 End: 01-21-2022 diphenhydrAMINE (BENADRYL) injection 12.5 mg ergocalciferol 1.25 mg oral capsule (10 sources) Provitamin D2 Compound Start: 11-12-2021 take 1 capsule by mouth every other week vitamin D (ERGOCALCIFEROL) 1.25 MG (54748 UT) CAPS capsule 1 CAPSULE ORALLY EVERY TWO WEEKS 90 DAYS 0 11/12/2021 Active End: 07-21-2021 Ergocalciferol 2000 units CA PS Take 1 capsule by mouth every 14 days 0 07/21/2021 Discontinued (Stop Taking at Discharge) ergocalciferol, vitamin D2, (VITAMIN D2 ORAL) (5 sources) ergocalciferol, vitamin D2, (VITAMIN D2 ORAL) Take by mouth once daily. Active ergocalciferol, vitamin D2, (VITAMIN D2 ORAL) Take by mouth once daily. 0 Active Comment on above: Take by mouth once d aily. fenofibric acid 105 mg oral tablet (13 sources) Peroxisome Proliferator Receptor alpha Agonist Start: 10-06-19 18 End: 07-22-19 22 take 1 tablet by mouth once daily Fenofibric Acid 105 mg tab Take 1 tablet by mouth once daily. 120 mg daily 3 10/05/2017 Active Comment on above: Take 1 tablet by mariangel th once daily. 120 mg daily labetalol (NORMODYNE;TRANDATE) injection 5 mg (1 source) Start: 01-21-20 22 labetalol (NORMODYNE;TRANDATE) injection 5 mg levothyroxine sodium 0.05 mg oral tablet (20 sources) l-Thyroxine Start: 08-30-19 18 End: 09-30-19 23 take 1 tablet by mouth once daily levothyroxine (SYNTHROID) 50 mcg tablet Take 50 mcg by mouth once daily. 3 08/29/2017 Active take 1 tablet by mariangel th every twenty-four hours levothyroxine (Synthroid, Levoxyl) 50 MC G tablet Take 50 mcg by mouth Every 24 hours. 0 Active Comment on above: Take 50 mcg by mouth once daily. 10 ml lidocaine hydrochloride 10 mg/ml injection (1 source) Antiarrhythmic, Amide Local Anesthetic Start: 2 End: 2 lidocaine 1 % injection 1 mL losartan potassium 50 mg oral tablet (17 sources) Angiotensin 2 Receptor Sandra Start: 2 take 1 tablet by mouth once daily losartan (COZAAR) 50 MG tablet Take 1 tablet by mouth daily 30 tablet 3 07/22/2021 Active Start: 07-20-2021 End: 07-21-2021 take 100 mg by mouth once daily 100 mg, Oral, DAILY, F irst dose on Tue07/20/21 at 0900, Until Discontinued Start: 12-11-2018 take 100 mg by mouth once jericho y 100 mg, Oral, DAILY, First dose on Tue12/11/18 at 0900 Start: 08-26-2017 End: 07-21-2021 take 2 tablets by mouth once daily losartan (COZAAR) 50 MG tablet Take 100 mg by mouth daily 0 08/26/2017 07/21/2021 Discontinued (Stop Taking at Discharge) Magnesium (11 sources) take 1 tablet by mouth three times daily Magnesium 400 MG TABS Take 1 tablet by mouth 3 times daily 0 Active magnesium chloride 598 mg delayed release oral tablet (5 sources) take 1 tablet by mouth three times daily Magnesium Chloride (SLOW-MAG) 71.5 mg TbEC Take 1 tablet by mouth three times daily. Active Comment on above: Take 1 tablet by mariangel th three times daily. magnesium oxide 400 mg oral tablet (20 sources) Start: 09-29-2022 End: 11-28-2022 take 2 tablets by mouth twice daily magnesium oxide (Mag-Ox) 400 (240 Mg) MG tablet Take 2 tablets (800 mg) by mouth 2 times daily. 120 tablet 1 09/29/2022 11/28/2022 Active Start: 09-29-2022 End: 09-29-2022 magnesium oxide (Mag-Ox) tab let 800 mg Start: 09-27-2022 End: 09-27-2022 magnesium oxide (Mag-Ox) tab let 400 mg Start: 09-27-2022 End: 09-27-2022 magnesium oxide (Mag-Ox) tab let 400 mg Start: 07-21-2021 magnesium oxid e (MAG-OX) tablet 800 mg Start: 07-20-2021 End: 07-21-2021 magnesium oxide (MAG-OX) tab let 400 mg Start: 12-11-2018 take 400 mg by mouth three times daily 400 mg, Oral, 3 TIMES DAILY, First dose on Tue12/11/18 at 0900 Start: 08-26-2017 take 1 tablet by mariangel th twice daily magnesium oxide (MAG-OX) 400 mg tablet Take 1 tablet by mouth twice daily. 3 08/26/2017 Active Comment on above: Take 1 tablet by mariangel twice daily. 1 ml meperidine hydrochloride 25 mg/ml cartridge (1 source) Opioid Agonist Start: 01-21-20 meperidine (DEMEROL) injection 12.5 mg metroNIDAZOLE 500 mg oral tablet (3 sources) Nitroimidazole Antimicrobial Start: 12-13-19 End: 12-23-19 take 1 tablet by mouth twice daily metroNIDAZOLE (FLAGYL) 500 MG tablet Take 1 tablet by mouth 2 times daily for 10 days 20 tablet 0 12/12/2018 12/22/2018 Active Start: 12-11-2018 500 mg, Intrav enous, EVERY 12 HOURS, First dose on Tue12/11/18 at 1200, Until Discontinued Start: 12-10-2018 End: 12-11-2018 metronidazole (FLAGYL) 500 m g in NaCl 100 mL IVPB premix omeprazole 20 mg delayed release oral capsule (11 sources) Proton Pump Inhibitor Start: 11-06-2018 take 1 capsule by mouth twice daily omeprazole (PRILOSEC) 20 mg capsule Take 1 capsule by mouth twice daily. 60 capsule 4 11/06/2018 Active take 1 capsule by mouth once sumaya ly omeprazole (PRILOSEC) 20 MG delayed release capsule Take 20 mg by mouth Daily 0 Active Comment on above: Take 1 capsule by mo [facility] twice daily. ondansetron 4 mg oral tablet (11 sources) Serotonin-3 Receptor Antagonist Start: 3 End: 3 take 1 tablet by mouth every eight hours as needed for nausea and vomiting ondansetron (Zofran) 4 MG tablet Take 1 tablet (4 mg) by mouth every 8 hours as needed for nausea or vomiting. 30 tablet 1 09/29/2022 10/29/2022 Active Start: 09-27-2022 End: 09-27-2022 ondansetron (Zofran) injecti on 4 mg Start: 01-20-2022 End: 09-29-2022 take 1 tablet by mouth once daily as needed for nausea ondansetron (Zofran) 4 MG tablet TAKE 1 TABLET BY MOUTH DAILY NEEDED FOR NAUSEA OR VOMITING 10 tablet 0 01/20/2022 09/29/2022 Discontinued (Stop taking at discharge) Start: 01-20-2022 End: 01-20-2022 ondansetron (ZOFRAN) injecti on 4 mg Start: 10-01-2021 End: 10-01-2021 ondansetron (ZOFRAN) injecti on 4 mg Start: 12-10-2018 End: 12-10-2018 4 mg, Intravenous, EVERY 4 H OURS PRN, Nausea, Vomiting, Starting 12/11/18 at 0051 oxyCODONE (1 source) Opioid Agonist Start: 01-20-2022 End: 01-20-2022 oxyCODONE (ROXICODONE) immediate release tablet 5 mg perflutren lipid microspheres (DEFINITY) injection 1.65 mg (1 source) Start: 07-20-2021 End: 07-23-2021 perflutren lipid microspheres (DEFINITY) injection 1.65 mg rosuvastatin calcium 5 mg oral tablet (10 sources) HMG-CoA Reductase Inhibitor take 1 tablet by mouth once daily rosuvastatin (CRESTOR) 5 mg tablet Take 5 mg by mouth once daily. Active Comment on above: Take 5 mg by mouth o nce daily. sodium bicarbonate 650 mg oral tablet (6 sources) Start: 09-29-2022 End: 11-28-2022 take 2 tablets by mouth twice daily sodium bicarbonate 650 MG tablet Take 2 tablets (1,300 mg) by mouth 2 times daily. 120 tablet 1 09/29/2022 11/28/2022 Active Start: 09-29-2022 End: 09-29-2022 sodium bicarbonate tablet 1, 300 mg take 1 tablet by mariangel th four times daily sodium bicarbonate 650 mg tablet Take 650 mg by mouth four times daily. Active sodium chloride flush 0.9 % injection 3 mL (1 source) Start: 10-01-2021 sodium chlorid e flush 0.9 % injection 3 mL sodium polystyrene sulfonate 250 mg/ml oral suspension (7 sources) Start: 07-21-2021 sodium polysty ben (KAYEXALATE) 15 GM/60ML suspension Take 60 mLs by mouth daily 240 mL 3 07/21/2021 Active Start: 07-20-2021 sodium polysty ben (KAYEXALATE) 15 GM/60ML suspension Start: 07-20-2021 sodium polysty ben (KAYEXALATE) 15 GM/60ML suspension 15 g sucralfate 1000 mg oral tablet (2 sources) Aluminum Complex Start: 12-17-2021 sucralfate (C ARAFATE) 1 GM tablet DISSOLVE 1 TABLET IN 5 ML OF WATER 4 TIMES A DAY BEFORE MEALS AND AT BEDTIME 0 12/17/2021 Active traMADol hydrochloride 50 mg oral tablet (10 sources) Opioid Agonist Start: 11-26-2023 End: 11-29-2023 Ultram 50 mg oral tablet Dose : 50 mg = 1 tab(s), Oral, q6h, PRN for pain, X 3 day(s), # 12 tab(s), 0 Refill(s), 11/29/23 5:24:00 PM EDT, Sprained ankle Fall Start Date: 11/26/23 Stop Date: 11/29/23 Status: Ordered Start: 01-20-2022 End: 01-25-2022 traMADol (ULTRAM) 50 MG tabl et Indications: Post-op pain Take 1 tablet by mouth every 6 hours as needed for Pain for up to 5 days. Intended supply: 7 days. Take lowest dose possible to manage pain 20 tablet 0 01/20/2022 01/25/2022 Active Start: 08-29-2017 End: 07-21-2021 traMADol (ULTRAM) 50 MG tabl et 50 mg every 6 hours as needed. . 0 08/29/2017 07/21/2021 Discontinued (Stop Taking at Discharge) vitamin d 2000 unt oral caps ule (1 source) Start: 12-15-2018 2,000 Units, O ral, EVERY 14 DAYS, First dose on Tue12/15/18 at 0900 Start: 12-15-2018 2,000 Units, O ral, EVERY 14 DAYS, First dose on Tue12/15/18 at 0900 Completed/Discontinued Medications Medication Drug Class(es) Dates Sig (Normalized) Sig (Original) acetaminophen 325 mg / oxyCODONE hydrochloride 5 mg oral tablet (2 sources) Opioid Agonist Start: 01-20-2022 End: 01-20-2022 oxyCODONE-acetamino phen (PERCOCET) 5-325 MG per tablet Indications: Post-op pain Take 1 tablet by mouth every 6 hours as needed for Pain for up to 3 days. Intended supply: 3 days. Take lowest dose possible to manage pain 12 tablet 0 01/20/2022 01/20/2022 Discontinued (Stop Taking at Discharge) Start: 12-11-2018 take 1 tablet by mariangel th every four hours as needed for pain 1 tablet, Oral, EVERY 4 HOURS PRN, Pain Moderate (4-6), Pain Severe (7-10), Starting Tue12/11/18 at 0051 Maximum dose of acetaminophen is 4000 mg from all sources in 24 hours. calcium chloride 0.0014 meq/ml / potassium chloride 0.004 meq/ml / sodium chloride 0.103 meq/ml / sodium lactate 0.028 meq/ml injectable solution (4 sources) Start: 09-27-2022 End: 09-27-2022 take 100 mL intravenously every hour 100 mL/hr, IntraVENous, Continuous, Starting on Tue09/27/22 at 0645 Start: 01-20-2022 lactated ringe rs infusion calcium gluconate 1000 mg in 100 mL IVPB premix (2 sources) Start: 09-27-2022 End: 09-27-2022 calcium gluconate 1000 mg in 100 mL IVPB premix cefTRIAXone (ROCEPHIN) 1 g IVPB in NS 50ml minibag (1 source) Start: 12-10-2018 End: 12-10-2018 cefTRIAXone (ROCEPHIN) 1 g IVPB in NS 50ml minibag cefTRIAXone sodium 1 g in sodium chloride 0.9 % 100 mL IVPB (add-vantage) (1 source) Start: 12-11-2018 1 g, Intravenous, EVERY 24 HOURS, First dose on Tue12/11/18 at 2200, Until Discontinued 0.4 ml enoxaparin sodium 100 mg/ml prefilled syringe (4 sources) Low Molecular Weight Heparin Start: 09-27-2022 End: 09-29-2022 inject 40 mg by subcutaneous injection every twenty-four hours 40 mg, SubCUTAneous, Every 24 hours scheduled (Daily), First dose on Tue09/27/22 at 0900 Renal dosing Indication of Use: Prophylaxis-DVT/PE Indications: Prophylaxis of Venous Thromboembolism Start: 07-20-2021 inject 40 mg by subc utaneous injection once daily 40 mg, SubCUTAneous, DAILY, First dose on Tue07/20/21 at 0900, Until Discontinued Start: 12-11-2018 enoxaparin (LO VENOX) injection 30 mg 1 ml ePHEDrine sulfate 50 mg/ml injection (1 source) alpha-Adrenergic Agonist, beta-Adrenergic Agonist, Norepinephrine Releasing Agent Start: 01-20-2022 End: 01-20-2022 ePHEDrine injection 25 mg Start: 01-20-2022 End: 01-20-2022 ePHEDrine injection 25 mg famotidine 20 mg oral tablet (15 sources) Histamine-2 Receptor Antagonist Start: 01-20-2022 End: 01-20-2022 famotidine (PEPCID) tablet 20 mg Start: 02-21-2020 take 2 tablets by mo ut once daily famotidine (PEPCID) 20 mg tablet Indications: Functional dyspepsia Take 2 tablets by mouth once daily. 180 tablet 3 02/21/2020 Active Start: 11-19-2017 End: 07-21-2021 take 1 tablet by mouth once daily famotidine (PEPCID) 20 MG tablet Take 1 tablet by mouth nightly 60 tablet 3 11/19/2017 07/21/2021 Discontinued (Stop Taking at Discharge) Comment on above: Take 2 tablets by mo [facility] once daily. 2 ml fentaNYL 0.05 mg/ml injection (2 sources) Opioid Agonist Start: 01-20-2022 End: 01-20-2022 fentaNYL (SUBLIMAZE) injection 50 mcg Start: 01-20-2022 fentaNYL (SUBL IMAZE) injection 25 mcg 1 ml LORazepam 2 mg/ml injection (1 source) Benzodiazepine Start: 01-20-2022 End: 01-20-2022 LORazepam (ATIVAN) injection 0.5 mg 100 ml magnesium sulfate 40 mg/ml injection (7 sources) Start: 09-27-2022 End: 09-27-2022 magnesium sulfate IVPB 4,000 mg Start: 09-27-2022 End: 09-27-2022 magnesium sulfate IVPB 4,000 mg Start: 09-27-2022 End: 09-28-2022 magnesium sulfate IVPB premi x 2,000 mg Start: 07-20-2021 End: 07-20-2021 magnesium sulfate 2000 mg in 50 mL IVPB premix nystatin 314002 unt/ml oral suspension (2 sources) Polyene Antifungal Start: 09-27-2022 End: 09-28-2022 nystatin (Mycostatin) [id number] UNIT/ML suspension 500,000 Units ondansetron ODT (Zofran-ODT) disintegrating tablet 4 mg (2 sources) Start: 09-27-2022 End: 09-29-2022 take 1 tablet by mouth every eight hours as needed for nausea and vomiting ondansetron ODT (Zofran-ODT) disintegrating tablet 4 mg pantoprazole 40 mg delayed release oral tablet (3 sources) Proton Pump Inhibitor Start: 09-27-2022 End: 09-28-2022 pantoprazole (ProtoNix) EC tablet 40 mg Start: 07-20-2021 pantoprazole ( PROTONIX) tablet 40 mg polyethylene glycol 3350 85775 mg powder for oral solution (5 sources) Osmotic Laxative Start: 01-20-2022 End: 01-20-2023 take 17 g by mouth every twenty-four hours as needed for constipation 17 g, Oral, Daily PRN, constipation, Starting on Tue09/27/22 at 0633 1st line for treatment of constipation - give scheduled if no bowel movement in past 24 hours. 50 ml sodium chloride 9 mg/ml injection (15 sources) Start: 09-27-2022 End: 09-27-2022 sodium chloride 0.9 % bolus 1,000 mL Start: 01-20-2022 sodium chlorid e flush 0.9 % injection 5-40 mL Start: 01-20-2022 0.9 % sodium c hloride bolus Start: 01-20-2022 0.9 % sodium c hloride infusion Start: 01-20-2022 sodium chlorid e flush 0.9 % injection 5-40 mL Start: 07-20-2021 End: 07-23-2021 sodium chloride flush 0.9 % injection 5-40 mL Start: 12-11-2018 10 mL, Intrave nous, EVERY 12 HOURS, First dose on Tue12/11/18 at 0900 Start: 12-11-2018 Intravenous, a t 75 mL/hr, CONTINUOUS, Starting Tue12/11/18 at 0130 Start: 12-10-2018 End: 12-10-2018 0.9 % sodium chloride bolus [place] [address] mg powder for oral suspension (2 sources) Start: 09-29-2022 End: 09-29-2022 sodium zirconium cyclosilica te (Lokelma) packet 10 g Problems Active Problems Problem Classification Problem Date Documented Date Episodic/Chronic Abdominal pain (4 sources) Epigastric pain; Translations: [Epigastric pain] Onset: 2 Episodic Acute and unspecified renal failure (6 sources) Acute injury of kidney; Translations: [Acute kidney injury] Onset: 8 11-18-2017 Allergic reactions (8 sources) Allergy status to other antibiotic agents status; Translations: [Allergy status to narcotic agent status] Onset: 2 Episodic Chronic kidney disease (9 sources) Chronic kidney disease, unspecified; Translations: [Chronic kidney disease stage 5] Onset: 2 Chronic Chronic obstructive pulmonary disease and bronchiectasis (14 sources) Chronic obstructive lung disease; Translations: [Chronic obstructive pulmonary disease, unspecified] Onset: 2 Chronic Deficiency and other anemia (2 sources) Anemia in chronic kidney disease; Translations: [Anemia of chronic renal failure, unspecified CKD stage] Onset: 4 Chronic Disorders of lipid metabolism (14 sources) Hyperlipidemia; Translations: [Hyperlipidemia, unspecified] Onset: 2 Chronic Diverticulosis and diverticulitis (12 sources) Diverticulitis of intestine; Translations: [Diverticulitis of intestine, part unspecified, without perforation or abscess without bleeding] Onset: 9 12-10-2018 Chronic Diverticulosis and diverticulitis (7 sources) Diverticulitis of intestine; Translations: [Acute diverticulitis] Onset: 9 12-10-2018 E Codes: Fall (2 sources) Fall; Translations: [Unspecified fall, initial encounter] Onset: 4 Episodic Esophageal disorders (14 sources) Gastroesophageal reflux disease; Translations: [Gastro-esophageal reflux disease without esophagitis] Onset: 2 Chronic Essential hypertension (14 sources) Hypertensive disorder; Translations: [Essential (primary) hypertension] Onset: 2 Chronic Fluid and electrolyte disorders (14 sources) Hyperkalemia; Translations: [Hyperkalemia] Onset: 2 Episodic Fracture of upper limb (1 source) Closed fracture of carpal bone; Translations: [Fracture of unspecified carpal bone, right wrist, initial encounter for closed fracture] Onset: 4 Episodic Hypertension with complications and secondary hypertension (2 sources) Hypertensive chronic kidney disease with stage 1 through stage 4 chronic kidney disease, or unspecified chronic kidney disease; Translations: [Hypertensive chronic kidney disease w stg 1-4/unsp chr kdny] Onset: 2 Chronic Nephritis; nephrosis; renal sclerosis (17 sources) Focal segmental glomerulosclerosis; Translations: [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] Onset: 2 Chronic Nutritional deficiencies (7 sources) Nutritional marasmus; Translations: [Unspecified severe protein-calorie malnutrition] Onset: 3 09-27-2022 Chronic Other and unspecified benign neoplasm (5 sources) Polyp of colon; Translations: [Polyp of colon] 12-28-2018 Episodic Other diseases of kidney and ureters (1 source) Hyperparathyroidism due to renal insufficiency; Translations: [Secondary hyperparathyroidism of renal origin] 08-03-2024 Chronic Other diseases of kidney and ureters (3 sources) Secondary hyperparathyroidism of renal origin; Translations: [Secondary hyperparathyroidism, renal (HCC)] Onset: 4 Chronic Other gastrointestinal disorders (2 sources) Diarrhea; Translations: [Diarrhea, unspecified] 09-27-2022 Episodic Other liver diseases (4 sources) Enzyme level - finding; Translations: [Abnormal levels of other serum enzymes] Onset: 4 06-17-2023 Episodic Other liver diseases (1 source) Abnormal levels of other serum enzymes; Translations: [Abnormal levels of other serum enzymes] Onset: 4 Episodic Other nervous system disorders (2 sources) Other chronic pain; Translations: [Other chronic pain] Onset: 2 Chronic Other nervous system disorders (1 source) Postoperative pain ; Translations: [Other acute postprocedural pain] Episodic Other nutritional; endocrine; and metabolic disorders (20 sources) Hypomagnesemia; Translations: [Hypomagnesemia] Onset: 8 11-18-2017 Chronic Other nutritional; endocrine; and metabolic disorders (2 sources) Obesity, unspecified; Translations: [Obesity, unspecified] Onset: 2 Chronic Other nutritional; endocrine; and metabolic disorders (2 sources) Body mass index (BMI) 40.0-44.9, adult; Translations: [Body mass index [BMI] 40.0-44.9, adult] Onset: 2 Chronic Other nutritional; endocrine; and metabolic disorders (5 sources) Hypomagnesemia co-occurrent with normocalciuria; Translations: [Hypomagnesemia] Onset: 1 12-02-2020 Chronic Other nutritional; endocrine; and metabolic disorders (2 sources) Hypomagnesemia; Translations: [Hypomagnesemia] Onset: 3 Chronic Residual codes; unclassified (2 sources) Acquired absence of both cervix and uterus; Translations: [Acquired absence of both cervix and uterus] Onset: 2 Episodic Sprains and strains (2 sources) Sprain of ankle; Translations: [Sprain of unspecified ligament of unspecified ankle, initial encounter] Onset: 4 Episodic Substance-related disorders (2 sources) Nicotine dependence, cigarettes, uncomplicated; Translations: [Nicotine dependence, cigarettes, uncomplicated] Onset: 2 Chronic Thyroid disorders (2 sources) Hypothyroidism, unspecified; Translations: [Hypothyroidism, unspecified] Onset: 2 Chronic Unclassified (1 source) Failed attempted procedure; Translations: [Failure of outpatient treatment] Past or Other Problems Problem Classification Problem Date Documented Da te Episodic/Chronic Acute and unspecified renal failure (13 sources) Acute injury of kidney; Translations: [Acute kidney failure, unspecified] Onset: 11-18-2017 11-18-2017 Episodic Biliary tract disease (9 sources) Cholelithiasis AND cholecystitis without obstruction; Translations: [Calculus of gallbladder with chronic cholecystitis without obstruction] Onset: 01-20-2022 Episodic Cardiac dysrhythmias (12 sources) Palpitations; Translations: [Palpitations] Onset: 07-20-2021 Episodic Deficiency and other anemia (18 sources) Anemia; Translations: [Anemia, unspecified] Onset: 11-18-2017 11-18-2017 Episodic Malaise and fatigue (4 sources) Asthenia; Translations: [Weakness] Onset: 09-27-2022 09-27-2022 Episodic Other gastrointestinal disorders (2 sources) Diarrhea, unspecified; Translations: [Diarrhea, unspecified] Onset: 09-27-2022 Episodic Thyroid disorders (12 sources) Disorder of thyroid gland; Translations: [Disorder of thyroid, unspecified] Onset: 07-21-2021 Episodic Results Test Name Value Interpretation Reference Range Facility [facility] 01-10-2025 CNPN Telephone (AGGENS3) YOANCORTNEYCATARINA Barragan ([id number]) 1960 F Date Time Provider Department 01/10/25 Tamera CASTELAN AGGENS3 During your visit today, we recorded the following information about you: Ace Alonzoa 01/10/2025 2:[address] Ray's office called in to follow up for surgery scheduling. Patient is ready for PD Cath procedure. Allergies As of Date: 01/10/2025 Noted Allergy Reaction ACETAMINOPHEN 02/02/2024 8 - GI Upset AVELOX (MOXIFLOXACIN HCL) 10/17/2017 16 - Unknown CODEINE 10/17/2017 16 - Unknown 3 - Cough 4 - Hives 8 - GI Upset DILAUDID (HYDROMORPHONE (BULK)) 10/17/2017 16 - Unknown HYDROMORPHONE 02/02/2024 14 - Other: See Comments MORPHINE 10/17/2017 16 - Unknown MOXIFLOXACIN 10/17/2017 4 - Hives 11 - Vomiting OXYCODONE 02/02/2024 8 - GI Upset PENICILLINS 10/17/2017 16 - Unknown OXYCODONE-ACETAMINOPH EN 10/17/2017 16 - Unknown 4 - Hives 8 - GI Upset Date Reviewed: 09/28/2024 Reviewed by: Tamera Castelan MD - Fully Assessed Reason for Visit: Appointment [186] Prescriptions as of 01/14/2025 - sodium bicarbonate 650 mg tablet Take 650 mg by mouth four times daily. - rosuvastatin (CRESTOR) 5 mg tablet Take 5 mg by mouth once daily. - Magnesium Chloride (SLOW-MAG) 71.5 mg TbEC Take 1 tablet by mouth three times daily. - famotidine (PEPCID) 20 mg tablet Take 2 tablets by mouth once daily. - omeprazole (PRILOSEC) 20 mg capsule Take 1 capsule by mouth twice daily. - amLODIPine (NORVASC) 5 mg tablet - levothyroxine (SYNTHROID) 50 mcg tablet Take 50 mcg by mouth once daily. - magnesium oxide (MAG-OX) 400 mg tablet Take 1 tablet by mouth twice daily. - Fenofibric Acid 105 mg tab Take 1 tablet by mouth once daily. 120 mg daily - ergocalciferol, vitamin D2, (VITAMIN D2 ORAL) Take by mouth once daily. Problem List As Of Date 01/10/2025 Noted Resolved Colon polyps [K63.5] Hypomagnesemia with normocalciuria [E83.42] 12/02/2020 Stage 5 chronic kidney disease not on chronic d*09/28/2024 Encounter Status:Closed by JUSTO ALONZO on 01/14/25 Normal [facility] Basic metabolic 2000 panelon 12-25-2024 Anion gap [Moles/Vol] 16 mmol/L High 8-15 [facility] Comment on above: Order Comment: Speci men Type: BLOOD SPECIMEN Ordering Facility: [facility] [place] Address: [address] [place] [address] Performed By: #### 2 4321-2 #### [facility] CLIA [id number] [address] [place] [address] [place] Calcium [Mass/Vol] 8.1 mg/dL Low 8.5-10.2 [facility] Comment on above: Order Comment: Speci men Type: BLOOD SPECIMEN Ordering Facility: [facility] Address: [address] [place] [address] Performed By: #### 2 4321-2 #### [facility] CLIA [id number] [address] [place], [place] [address] [place] Chloride [Moles/Vol] 100 mmol/L Normal 98-107 [facility] Comment on above: Order Comment: Speci men Type: BLOOD SPECIMEN Ordering Facility: [facility] [place] Address: [address] [place] [address] Performed By: #### 2 4321-2 #### [facility] CLIA [id number] [address] [address] [place] CO2 [Moles/Vol] 17 mmol/L Low 22-30 [facility] Comment on above: Order Comment: Speci men Type: BLOOD SPECIMEN Ordering Facility: [facility] [place] Address: [address] [place] [address] Performed By: #### 2 4321-2 #### [facility] CLIA [id number] [address] [address] [place] Creatinine [Mass/Vol] 3.94 mg/dL High 0.58-0.96 [facility] Comment on above: Order Comment: Speci men Type: BLOOD SPECIMEN Ordering Facility: Address: [address] [place], [place] [address] Performed By: #### 2 4321-2 #### [facility] CLIA [id number] [address] [place] [id number] [place] eGFRcr SerPlBld CKD-EPI 2020 12 mL/min/1.73m??? Low >=60 [facility] Comment on above: Order Comment: Speci men Type: BLOOD SPECIMEN Ordering Facility: Address: [address] [place], [place] [address] Result Comment: Claudia mated Glomerular Filtration Rate (eGFR) is calculated using the 2020 CKD-EPI creatinine equation. This equation utilizes serum creatinine, sex, and age as parameters. The creatinine assay has traceable calibration to isotope dilution-mass spectrometry. Refer to KDIGO guidelines for clinical interpretation. In patients with unstable renal function, e.g. those with acute kidney injury, the eGFR may not accurately reflect actual GFR. Performed By: #### 2 4321-2 #### [facility] CLIA [id number] [address] [address] [place] Glucose [Mass/Vol] 83 mg/dL Normal 74-99 [facility] Comment on above: Order Comment: Speci men Type: BLOOD SPECIMEN Ordering Facility: [address] Address: [facility] [place] [address] Result Comment: The [place] Diabetes Association (ADA) provides guidance for cutoff values for fasting glucose and random glucose. The ADA defines fasting as no caloric intake for at least 8 hours. Fasting plasma glucose results between 100 to 125 mg/dL indicate increased risk for diabetes (prediabetes). Fasting plasma glucose results greater than or equal to 126 mg/dL meet the criteria for diagnosis of diabetes. In the absence of unequivocal hyperglycemia, results should be confirmed by repeat testing. In a patient with classic symptoms of hyperglycemia or hyperglycemic crisis, random plasma glucose results greater than or equal to 200 mg/dL meet the criteria for diagnosis of diabetes. Reference: Standards of Medical Care in Diabetes 2016, [place] Diabetes Association. Diabetes Care. 2016.39(Suppl 1). Performed By: #### 2 4321-2 #### [facility] CLIA [id number] [facility] [place] [id number] [place] Potassium [Moles/Vol] 4.8 mmol/L Normal 3.7-5.1 [facility] Comment on above: Order Comment: Speci men Type: BLOOD SPECIMEN Ordering Facility: [address] Address: [place] [address] Performed By: #### 2 4321-2 #### [facility] CLIA [id number] [address] [address] [place] Sodium [Moles/Vol] 133 mmol/L Low 136-144 [facility] Comment on above: Order Comment: Speci men Type: BLOOD SPECIMEN Ordering Facility: [address] Address: [place] [address] Performed By: #### 2 4321-2 #### [facility] CLIA [id number] [address] [place] [id number] [place] Urea nitrogen [Mass/Vol] 34 mg/dL High 7-21 [facility] Comment on above: Order Comment: Speci men Type: BLOOD SPECIMEN Ordering Facility: [address] Address: [facility] [place] [address] Performed By: #### 2 4321-2 #### [facility] CLIA [id number] [address] [place] [id number] [place] Prot/Creat Uron 12-25-2024 Protein/Creatinine (U) [Mass ratio] 1.98 mg/mg High <0.15 [facility] Comment on above: Order Comment: Speci men Type: BLOOD SPECIMEN Ordering Facility: [facility] Address: [address] [place] [address] Result Comment: Adul t Proteinuria Categories: <0.15 mg/mg is considered normal to mildly increased 0.15 - 0.50 mg/mg is considered moderately increased >0.50 mg/mg is considered severely increased KDIGO. (2013). KDIGO 2012 Clinical Practice Guideline for the Evaluation and Management of Chronic Kidney Disease. Official Journal of the International Society of Nephrology, 3(1), 1-150. Performed By: #### 2 4321-2 #### [facility] CLIA [id number] [address] [place] [address] [place] Protein/Creatinine (U) [Mass ratio]on 12-25-2024 Creatinine (U) [Mass/Vol] 24.8 mg/dL Normal 20.0-300.0 [facility] Comment on above: Order Comment: Speci men Type: BLOOD SPECIMEN Ordering Facility: [facility] Address: [address] [place] [address] Performed By: #### 2 4321-2 #### [facility] CLIA [id number] [address] [place], [place] [address] [place] Protein (U) [Mass/Vol] 49 mg/dL High 0-20 [facility] Comment on above: Order Comment: Speci men Type: BLOOD SPECIMEN Ordering Facility: [facility] Address: [address] [place] [address] Performed By: #### 2 4321-2 #### [facility] CLIA [id number] [address] [place], [place] [address] [place] 25-HYDROXY D2+D3on 06-26-202 5 25-hydroxyvitamin D3 [Mass/Vol] 34.2 ng/mL Normal 30.0-100.0 [facility] Comment on above: Order Comment: Speci men Type: BLOOD SPECIMEN Ordering Facility: Address: [address] [place] [address] Result Comment: Defi cient: <20.1 ng/mL Insufficient: 20.1 - 29.9 ng/mL Sufficient: 30.0 - 100.0 ng/mL Toxic: >150.0 ng/mL Reference: Devyn MEI, N Engl J Med (2007)357:266-81 This test was developed and its performance characteristics determined by the [facility]ology [facility] Laboratory [facility] [place] at the [facility]. The U.S. Food and Drug Administration has not approved or cleared this test, however, FDA clearance or approval is not currently required for clinical use. Performed By: #### 2 731-8, 41654-5, 25462-9 #### [facility] CLIA [id number] [address] [place] [address] [place] Vitamin D2 [Mass/Vol] 34.2 ng/mL Normal [facility] Comment on above: Order Comment: Speci men Type: BLOOD SPECIMEN Ordering Facility: Address: [address] [place] [address] Performed By: #### 2 731-8, , 99198-2 #### [facility] CLIA [id number] [address] [place] [address] [place] Vitamin D3 [Mass/Vol] ng/mL Normal [facility] Comment on above: Order Comment: Speci men Type: BLOOD SPECIMEN Ordering Facility: Address: [address] [place] [address] Performed By: #### 2 731-8, , 09284-7 #### [facility] CLIA [id number] [address] [address] [place] Albumin SerPl-mCncon 025 Albumin [Mass/Vol] 4.3 g/dL Normal 3.9-4.9 [facility] Comment on above: Order Comment: Speci men Type: BLOOD SPECIMEN Ordering Facility: [facility] Address: [facility] [place] [address] Performed By: #### 2 777-1, 1751-7 #### [facility] CLIA [id number] [address] [place] [address] [place] Basic metabolic 2000 panelon 10-18-2024 Anion gap [Moles/Vol] 15 mmol/L Normal 8-15 [facility] Comment on above: Order Comment: Speci men Type: BLOOD SPECIMEN Ordering Facility: [facility] Address: [facility] [place] [address] Performed By: #### 2 731-8, 26666-0, 61994-8 #### [facility] CLIA [id number] [address] [place] [address] [place] Calcium [Mass/Vol] 8.9 mg/dL Normal 8.5-10.2 [facility] Comment on above: Order Comment: Speci men Type: BLOOD SPECIMEN Ordering Facility: [facility] Address: [facility] [place] [address] Performed By: #### 2 731-8, 22808-5, 33282-4 #### [facility] CLIA [id number] [address] [place] [address] [place] Chloride [Moles/Vol] 102 mmol/L Normal 98-107 [facility] Comment on above: Order Comment: Speci men Type: BLOOD SPECIMEN Ordering Facility: [facility] Address: [address] [place] [address] Performed By: #### 2 731-8, 88728-0, 33408-0 #### [facility] CLIA [id number] [address] [place] [address] [place] CO2 [Moles/Vol] 18 mmol/L Low 22-30 [facility] Comment on above: Order Comment: Speci men Type: BLOOD SPECIMEN Ordering Facility: [facility] Address: [address] [place] [address] Performed By: #### 2 731-8, 05002-0, 59000-0 #### [facility] CLIA [id number] [address] [place] [address] [place] Creatinine [Mass/Vol] 3.87 mg/dL High 0.58-0.96 [facility] Comment on above: Order Comment: Speci men Type: BLOOD SPECIMEN Ordering Facility: [facility] Address: [address] [place] [address] Performed By: #### 2 731-8, , #### [facility] CLIA [id number] [address] [place] [address] [place] Creatinine and Glomerular filtration rate.predicted panel (S/P/Bld) 13 mL/min/1.73m??? Low >=60 [facility] Comment on above: Order Comment: Speci men Type: BLOOD SPECIMEN Ordering Facility: [facility] [place] Address: [address] [place] [address] Result Comment: Claudia mated Glomerular Filtration Rate (eGFR) is calculated using the 2020 CKD-EPI creatinine equation. This equation utilizes serum creatinine, sex, and age as parameters. The creatinine assay has traceable calibration to isotope dilution-mass spectrometry. Refer to KDIGO guidelines for clinical interpretation. In patients with unstable renal function, e.g. those with acute kidney injury, the eGFR may not accurately reflect actual GFR. Performed By: #### 2 731-8, 74132-9, 87177-8 #### [facility] CLIA [id number] [address] [place] [address] [place] Glucose [Mass/Vol] 96 mg/dL Normal 74-99 [facility] Comment on above: Order Comment: Speci men Type: BLOOD SPECIMEN Ordering Facility: [facility] Address: [address] [place] [address] Result Comment: The [place] Diabetes Association (ADA) provides guidance for cutoff values for fasting glucose and random glucose. The ADA defines fasting as no caloric intake for at least 8 hours. Fasting plasma glucose results between 100 to 125 mg/dL indicate increased risk for diabetes (prediabetes). Fasting plasma glucose results greater than or equal to 126 mg/dL meet the criteria for diagnosis of diabetes. In the absence of unequivocal hyperglycemia, results should be confirmed by repeat testing. In a patient with classic symptoms of hyperglycemia or hyperglycemic crisis, random plasma glucose results greater than or equal to 200 mg/dL meet the criteria for diagnosis of diabetes. Reference: Standards of Medical Care in Diabetes 2016, [place] [employer] Association. Diabetes Care. 2016.39(Suppl 1). Performed By: #### 2 731-8, 29836-1, 30050-3 #### [facility] CLIA [id number] [address] [place] [address] [place] Potassium [Moles/Vol] 4.7 mmol/L Normal 3.7-5.1 [facility] Comment on above: Order Comment: Speci men Type: BLOOD SPECIMEN Ordering Facility: [facility] Address: [address] [place] [address] Performed By: #### 2 731-8, , 13349-2 #### [facility] CLIA [id number] [address] [place] [address] [place] Sodium [Moles/Vol] 135 mmol/L Low 136-144 [facility] Comment on above: Order Comment: Speci men Type: BLOOD SPECIMEN Ordering Facility: [facility] [place] Address: [address] [place] [address] Performed By: #### 2 731-8, , 78269-7 #### [facility] CLIA [id number] [address] [place] [id number] [place] Urea nitrogen [Mass/Vol] 31 mg/dL High 7- [facility] Comment on above: Order Comment: Yasi men Type: BLOOD SPECIMEN Ordering Facility: [facility] [place] Address: [address] [place] [address] Performed By: #### 2 731-8, 05966-6, 24063-0 #### [facility] CLIA [id number] [address] [place], [place] [id number] [place] CBC panel Auto (Bld)on 10-18 Erythrocyte distribution width (RBC) [Ratio] 13.4 % Normal 11.5-15.0 [facility] Comment on above: Order Comment: Speci men Type: BLOOD SPECIMEN Ordering Facility: [facility] [place] Address: [facility] [place] [address] Performed By: #### 2 731-8, 52653-6, 44554-6 #### [facility] CLIA [id number] [address] [place] [address] [place] Hematocrit (Bld) [Volume fraction] 30.7 % Low 36.0-46.0 [facility] Comment on above: Order Comment: Speci men Type: BLOOD SPECIMEN Ordering Facility: [facility] [place] Address: [place] [address] Performed By: #### 2 731-8, 21492-4, 35767-6 #### [facility] CLIA [id number] [address] [place] [address] [place] Hemoglobin (Bld) [Mass/Vol] 9.7 g/dL Low 11.5-15.5 [facility] Comment on above: Order Comment: Speci men Type: BLOOD SPECIMEN Ordering Facility: [facility] Address: [facility] [place] [address] Performed By: #### 2 731-8, 33770-6, 09427-8 #### [facility] CLIA [id number] [address] [place] [address] [place] MCH (RBC) [Entitic mass] 28.6 pg Normal 26.0-34.0 [facility] Comment on above: Order Comment: Speci men Type: BLOOD SPECIMEN Ordering Facility: [facility] Address: [address] [place] [address] Performed By: #### 2 731-8, , 14139-0 #### [facility] CLIA [id number] [address] [place] [address] [place] MCHC (RBC) [Mass/Vol] 31.6 g/dL Normal 30.5-36.0 [facility] Comment on above: Order Comment: Speci men Type: BLOOD SPECIMEN Ordering Facility: [facility] Address: [facility] [place] [address] Performed By: #### 2 731-8, , 47863-3 #### [facility] CLIA [id number] [address] [place] [address] [place] MCV (RBC) [Entitic vol] 90.6 fL Normal 80.0-100.0 [facility] Comment on above: Order Comment: Speci men Type: BLOOD SPECIMEN Ordering Facility: [facility] Address: [facility] [place] [address] Performed By: #### 2 731-8, , 43005-1 #### [facility] CLIA [id number] [address] [place] [address] [place] Nucleated RBC (Bld) [#/Vol] 10*3/uL Normal <0.01 [facility] Comment on above: Order Comment: Speci men Type: BLOOD SPECIMEN Ordering Facility: Address: [facility] [place] [address] Performed By: #### 2 731-8, , 91408-2 #### [facility] CLIA [id number] [address] [place] [address] [place] Platelet mean volume (Bld) [Entitic vol] 10.6 fL Normal 9.0-12.7 [facility] Comment on above: Order Comment: Speci men Type: BLOOD SPECIMEN Ordering Facility: Address: [address] [place] [address] Performed By: #### 2 731-8, , 30626-6 #### [facility] CLIA [id number] [address] [address] [place] Platelets (Bld) [#/Vol] 344 10*3/uL Normal 150-400 [facility] Comment on above: Order Comment: Speci men Type: BLOOD SPECIMEN Ordering Facility: Address: [address] [place] [address] Performed By: #### 2 731-8, , #### [facility] CLIA [id number] [address] [address] [place] RBC (Bld) [#/Vol] 3.39 10*6/uL Low 3.90-5.20 [facility] Comment on above: Order Comment: Speci men Type: BLOOD SPECIMEN Ordering Facility: Address: [address] [place] [address] Performed By: #### 2 731-8, , 66942-2 #### [facility] CLIA [id number] [address] [place] [address] [place] WBC (Bld) [#/Vol] 10.37 10*3/uL Normal 3.70-11.00 [facility] Comment on above: Order Comment: Speci men Type: BLOOD SPECIMEN Ordering Facility: Address: [address] [place] [address] Performed By: #### 2 731-8, , 36883-1 #### [facility] CLIA [id number] [address] [place] [address] [place] PTH-Intact SerPl-mCncon - Parathyrin.intact [Mass/Vol] 1158 pg/mL High 15-65 [facility] Comment on above: Order Comment: Speci men Type: BLOOD SPECIMEN Ordering Facility: Address: [address] [place] [address] Performed By: #### 2 731-8, 14358-9, 98263-6 #### [facility] CLIA [id number] [address] [place], [place] [address] [place] Phosphate SerPl-mCncon 10-18 Phosphate [Mass/Vol] 5.4 mg/dL High 2.7-4.8 [facility] Comment on above: Order Comment: Speci men Type: BLOOD SPECIMEN Ordering Facility: [facility] [place] Address: [address] [place] [address] Performed By: #### 2 777-1, 1751-7 #### [facility] CLIA [id number] [address] [place] [address] [place] Prot/Creat Uron 10-18-2024 Protein/Creatinine (U) [Mass ratio] 2.37 mg/mg High <0.15 [facility] Comment on above: Order Comment: Speci men Type: BLOOD SPECIMEN Ordering Facility: [facility] [place] Address: [address] [place] [address] Result Comment: Adul t Proteinuria Categories: <0.15 mg/mg is considered normal to mildly increased 0.15 - 0.50 mg/mg is considered moderately increased >0.50 mg/mg is considered severely increased KDIGO. (2013). KDIGO 2012 Clinical Practice Guideline for the Evaluation and Management of Chronic Kidney Disease. Official Journal of the International Society of Nephrology, 3(1), 1-150. Performed By: #### 2 731-8, 71197-5, 70957-1 #### [facility] CLIA [id number] [address] [place] [address] [place] Protein/Creatinine (U) [Mass ratio]on 10-18-2024 Creatinine (U) [Mass/Vol] 21.1 mg/dL Normal 20.0-300.0 [facility] Comment on above: Order Comment: Speci men Type: BLOOD SPECIMEN Ordering Facility: [facility] [place] Address: [place] [address] Performed By: #### 2 731-8, , 72608-5 #### [facility] CLIA [id number] [address] [place] [id number] [place] Protein (U) [Mass/Vol] 50 mg/dL High 0-20 [facility] Comment on above: Order Comment: Speci men Type: BLOOD SPECIMEN Ordering Facility: Address: [address] [place] [address] Performed By: #### 2 731-8, , 48162-1 #### [facility] CLIA [id number] [address] [place] [id number] [place] 25([place])D3 [facility] 2024 25-hydroxyvitamin D3 [Mass/Vol] 20.5 ng/mL Low 31.0-80.0 [facility] Comment on above: Order Comment: Speci men Type: BLOOD SPECIMEN Ordering Facility: Address: [address] [place] [address] Performed By: #### 2 4321-2 #### [facility] IA [id number] [address] [place], [place] [address] [place] Albumin SerPl-mCncon 025 Albumin [Mass/Vol] 4.2 g/dL Normal 3.9-4.9 [facility] Comment on above: Order Comment: Speci men Type: BLOOD SPECIMEN Ordering Facility: Address: [facility] [place] [address] Performed By: #### 2 731-8, , 20813-7 #### [facility] CLIA [id number] [address] [place], [place] [address] [place] Basic metabolic 2000 panelon 10-13-2024 Anion gap [Moles/Vol] 15 mmol/L Normal 8-15 [facility] Comment on above: Order Comment: Speci men Type: BLOOD SPECIMEN Ordering Facility: Address: [address] [place] [address] Performed By: #### 2 731-8, , 92412-3 #### [facility] CLIA [id number] [address] [place] [address] [place] Calcium [Mass/Vol] 9.3 mg/dL Normal 8.5-10.2 [facility] Comment on above: Order Comment: Speci men Type: BLOOD SPECIMEN Ordering Facility: Address: [facility] [place] [address] Performed By: #### 2 731-8, , 24376-7 #### [facility] CLIA [id number] [address] [place] [address] [place] Chloride [Moles/Vol] 103 mmol/L Normal 98-107 [facility] Comment on above: Order Comment: Speci men Type: BLOOD SPECIMEN Ordering Facility: Address: [facility] [address] [place] [id number] Performed By: #### 2 731-8, , 67548-8 #### [facility] CLIA [id number] [address] [place] [address] [place] CO2 [Moles/Vol] 17 mmol/L Low 22-30 [facility] Comment on above: Order Comment: Speci men Type: BLOOD SPECIMEN Ordering Facility: Address: [address] [place] [address] Performed By: #### 2 731-8, , 61184-2 #### [facility] CLIA [id number] [address] [place] [id number] [place] Creatinine [Mass/Vol] 3.86 mg/dL High 0.58-0.96 [facility] Comment on above: Order Comment: Speci men Type: BLOOD SPECIMEN Ordering Facility: Address: [address] [place] [address] Performed By: #### 2 731-8, , 92890-9 #### [facility] CLIA [id number] [facility] [place] [address] [place] Creatinine and Glomerular filtration rate.predicted panel (S/P/Bld) 13 mL/min/1.73m??? Low >=60 [facility] Comment on above: Order Comment: Andres luna Type: BLOOD SPECIMEN Ordering Facility: [address] Address: [address] [place] [address] Result Comment: Claudia mated Glomerular Filtration Rate (eGFR) is calculated using the 2020 CKD-EPI creatinine equation. This equation utilizes serum creatinine, sex, and age as parameters. The creatinine assay has traceable calibration to isotope dilution-mass spectrometry. Refer to KDIGO guidelines for clinical interpretation. In patients with unstable renal function, e.g. those with acute kidney injury, the eGFR may not accurately reflect actual GFR. Performed By: #### 2 731-8, 11631-8, 00526-6 #### [facility] CLIA [id number] [address] [place] [address] [place] Glucose [Mass/Vol] 92 mg/dL Normal 74-99 [facility] Comment on above: Order Comment: Andres luna Type: BLOOD SPECIMEN Ordering Facility: [address] Address: [address] [place], [place] [id number] Result Comment: The [place] Diabetes Association (ADA) provides guidance for cutoff values for fasting glucose and random glucose. The ADA defines fasting as no caloric intake for at least 8 hours. Fasting plasma glucose results between 100 to 125 mg/dL indicate increased risk for diabetes (prediabetes). Fasting plasma glucose results greater than or equal to 126 mg/dL meet the criteria for diagnosis of diabetes. In the absence of unequivocal hyperglycemia, results should be confirmed by repeat testing. In a patient with classic symptoms of hyperglycemia or hyperglycemic crisis, random plasma glucose results greater than or equal to 200 mg/dL meet the criteria for diagnosis of diabetes. Reference: Standards of Medical Care in Diabetes 2016, [place] Diabetes Association. Diabetes Care. 2016.39(Suppl 1). Performed By: #### 2 731-8, 68606-6, 08079-8 #### [facility] CLIA [id number] [address] [place] [address] [place] Potassium [Moles/Vol] 5.5 mmol/L High 3.7-5.1 [facility] Comment on above: Order Comment: Speci men Type: BLOOD SPECIMEN Ordering Facility: Address: [place] [address] Performed By: #### 2 731-8, 40066-3, 49875-3 #### [facility] CLIA [id number] [address] [place] [address] [place] Sodium [Moles/Vol] 135 mmol/L Low 136-144 [facility] Comment on above: Order Comment: Speci men Type: BLOOD SPECIMEN Ordering Facility: Address: [place] [address] Performed By: #### 2 731-8, 99040-8, 01940-8 #### [facility] CLIA [id number] [address] [place] [address] [place] Urea nitrogen [Mass/Vol] 32 mg/dL High - [facility] Comment on above: Order Comment: Speci men Type: BLOOD SPECIMEN Ordering Facility: Address: [place] [address] Performed By: #### 2 731-8, 65820-9, 06629-5 #### [facility] CLIA [id number] [address] [place] [address] [place] CBC panel Auto (Bld)on 10-13 Erythrocyte distribution width (RBC) [Ratio] 13.2 % Normal 11.5-15.0 [facility] Comment on above: Order Comment: Speci men Type: BLOOD SPECIMEN Ordering Facility: Address: [place] [address] Performed By: #### 5 8410-2 #### [facility] CLIA [id number] [address] [place] [address] [place] Hematocrit (Bld) [Volume fraction] 31.6 % Low 36.0-46.0 [facility] Comment on above: Order Comment: Speci men Type: BLOOD SPECIMEN Ordering Facility: [facility] [place] Address: [address] [place] [address] Performed By: #### 5 8410-2 #### [facility] CLIA [id number] [address] [id number] [place] Hemoglobin (Bld) [Mass/Vol] 10.1 g/dL Low 11.5-15.5 [facility] Comment on above: Order Comment: Speci men Type: BLOOD SPECIMEN Ordering Facility: [facility] [place] Address: [address] [place] [address] Performed By: #### 5 8410-2 #### [facility] CLIA [id number] [facility] [place] [id number] [place] MCH (RBC) [Entitic mass] 28.9 pg Normal 26.0-34.0 [facility] Comment on above: Order Comment: Speci men Type: BLOOD SPECIMEN Ordering Facility: [facility] [place] Address: [address] [phone] Performed By: #### 5 8410-2 #### [facility] CLIA [id number] [address] [place], [place] [address] [place] MCHC (RBC) [Mass/Vol] 32.0 g/dL Normal 30.5-36.0 [facility] Comment on above: Order Comment: Speci men Type: BLOOD SPECIMEN Ordering Facility: [facility] [place] Address: [address] [place] [address] Performed By: #### 5 8410-2 #### [facility] CLIA [id number] [address] [place], [place] [address] [place] MCV (RBC) [Entitic vol] 90.3 fL Normal 80.0-100.0 [facility] Comment on above: Order Comment: Speci men Type: BLOOD SPECIMEN Ordering Facility: [facility] [place] Address: [address] [place] [address] Performed By: #### 5 8410-2 #### [facility] CLIA [id number] [address] [place], [place] [address] [place] Nucleated RBC (Bld) [#/Vol] 10*3/uL Normal <0.01 [facility] Comment on above: Order Comment: Speci men Type: BLOOD SPECIMEN Ordering Facility: Address: [address] [place] [address] Performed By: #### 5 8410-2 #### [facility] CLIA [id number] [address] [place], [place] [address] [place] Platelet mean volume (Bld) [Entitic vol] 10.5 fL Normal 9.0-12.7 [facility] Comment on above: Order Comment: Speci men Type: BLOOD SPECIMEN Ordering Facility: Address: [address] [place] [address] Performed By: #### 5 8410-2 #### [facility] CLIA [id number] [address] [place] [address] [place] Platelets (Bld) [#/Vol] 380 10*3/uL Normal 150-400 [facility] Comment on above: Order Comment: Speci men Type: BLOOD SPECIMEN Ordering Facility: Address: [address] [place] [address] Performed By: #### 5 8410-2 #### [facility] CLIA [id number] [address] [place] [address] [place] RBC (Bld) [#/Vol] 3.50 10*6/uL Low 3.90-5.20 [facility] Comment on above: Order Comment: Speci men Type: BLOOD SPECIMEN Ordering Facility: Address: [address] [place] [address] Performed By: #### 5 8410-2 #### [facility] CLIA [id number] [address] [place], [place] [address] [place] WBC (Bld) [#/Vol] 9.57 10*3/uL Normal 3.70-11.00 [facility] Comment on above: Order Comment: Speci men Type: BLOOD SPECIMEN Ordering Facility: Address: [address] [place], [place] [address] Performed By: #### 5 8410-2 #### [facility] CLIA [id number] [address] [place], [place] [address] [place] PTH-Intact SerPl-ncon - Parathyrin.intact [Mass/Vol] 1171 pg/mL High 15-65 [facility] Comment on above: Order Comment: Speci men Type: BLOOD SPECIMEN Ordering Facility: Address: [address] [place] [address] Performed By: #### 2 731-8, 89878-4, 03785-5 #### [facility] CLIA [id number] [address] [place], [place] [address] [place] Phosphate SerPl-mCncon 10-13 Phosphate [Mass/Vol] 4.8 mg/dL Normal 2.7-4.8 [facility] Comment on above: Order Comment: Speci men Type: BLOOD SPECIMEN Ordering Facility: Address: [address] [place], [place] [address] Performed By: #### 2 731-8, 82526-4, 62544-3 #### [facility] CLIA [id number] [address] [place], [place] [address] [place] Prot/Creat Uron 10-13-2024 Protein/Creatinine (U) [Mass ratio] 2.81 mg/mg High <0.15 [facility] Comment on above: Order Comment: Speci men Type: BLOOD SPECIMEN Ordering Facility: Address: [place] [address] Result Comment: Adul t Proteinuria Categories: <0.15 mg/mg is considered normal to mildly increased 0.15 - 0.50 mg/mg is considered moderately increased >0.50 mg/mg is considered severely increased KDIGO. (2013). KDIGO 2012 Clinical Practice Guideline for the Evaluation and Management of Chronic Kidney Disease. Official Journal of the International Society of Nephrology, 3(1), 1-150. Performed By: #### 2 731-8, 82696-1, 40967-0 #### [facility] CLIA [id number] [address] [address] [place] Protein/Creatinine (U) [Mass ratio]on 10-13-2024 Creatinine (U) [Mass/Vol] 39.8 mg/dL Normal 20.0-300.0 [facility] Comment on above: Order Comment: Andres luna Type: BLOOD SPECIMEN Ordering Facility: [facility] [place] Address: [address] [place] [address] Performed By: #### 2 731-8, 94104-3, 72133-0 #### [facility] CLIA [id number] [address] [place] [address] [place] Protein (U) [Mass/Vol] 112 mg/dL High 0-20 [facility] Comment on above: Order Comment: Andres luna Type: BLOOD SPECIMEN Ordering Facility: [facility] [place] Address: [address] [place] [address] Performed By: #### 2 731-8, 99170-7, 41040-8 #### [facility] CLIA [id number] [address] [place], [place] [address] [place] CNOVon 09-28-2024 CNOV Office Visit (AGGENS3) CATARINA BOYER ([id number]) 1960 F Date Time Provider Department 09/28/24 10:30 AM Tamera CASTELAN AGGENS3 During your visit today, we recorded the following information about you: Pulse Respiration Blood pressure Weight 77/minute 20/minute 148/78 93 kg Height 1.626 m Tamera Castelan MD 09/28/2024 3:09 PM Signed Dallin Castelan MD General Surgery [address] [place] [address], [address] [place] [address] Patient referred by: No referring provider defined for this encounter. CANDE Boyer is a 64 year old White female who is referred in consideration of placing a peritoneal dialysis catheter. She is seen today with her [id number] She has CKD stage V. Her GFR has been 15 or last for more than a year. While her creatinine is remaining approximately the same between 3.5 and 4 she is overall feeling worse and having problems with hyperkalemia. 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 This was biopsy-proven. Her only abdominal surgeries are a laparoscopic cholecystectomy and a hysterectomy. She has chronic anemia-likely related to your chronic renal disease . Her hemoglobin has been about 9.5 SUBJECTIVE Review of Systems Constitutional: Negative. Eyes: Negative. Respiratory: Negative. Cardiovascular: Negative. Gastrointestinal: Negative. Genitourinary: Negative. Musculoskeletal: Negative. Skin: Negative. Neurological: Negative. Endo/Heme/Allergies: Negative. Psychiatric/Behaviora l: Negative. PAST MEDICAL HISTORY Diagnosis Date Abnormal renal function Anemia in chronic kidney disease Chronic kidney disease (CKD), stage IV (severe) (HCC) Colon polyps COPD (chronic obstructive pulmonary disease) (HCC) Fibromyalgia Focal segmental glomerulosclerosis GERD (gastroesophageal reflux disease) History of rectal bleeding HTN (hypertension) Hyperkalemia Hypomagnesemia Hypothyroid Osteoarthritis Thyroid activity decreased PAST SURGICAL HISTORY Procedure Laterality Date COLONOSCOPY 05/13/2011 Hyperplastic Polyps x2 Benign COLONOSCOPY 12/28/2018 tubular and hyperplastic polyps, diverticulosis EGD 05/07/2011 patient unsure of having this procedure EGD 01/19/2018 [place] Grade B reflux esophagitis. Medium-sized hiatal hernia.Chronic gastritis.Gaping lower esophageal sphincter PAST SURGICAL HISTORY OF 2009 Hysterectomy, w/oopherectomy PAST SURGICAL HISTORY OF Right 2016 Torn menicus repair PAST SURGICAL HISTORY OF Bladder stretched as a child Social History Tobacco Use Smoking status: Every Day Types: Cigarettes Smokeless tobacco: Never Substance Use Topics Alcohol use: No Drug use: No FAMILY HISTORY Problem Relation Age of Onset Hypertension Mother Diabetes Mother Hypertension Father Diabetes Father ALLERGIES Allergen Reactions Acetaminophen GI Upset Avelox [Moxifloxaci* Unknown Codeine Unknown, Cough, Hives, GI Upset Dilaudid [Hydromorp* Unknown Hydromorphone Other: See Comments Morphine Unknown Moxifloxacin Hives, Vomiting Oxycodone GI Upset Penicillins Unknown Oxycodone-Acetamino* Unknown, Hives, GI Upset Current Outpatient Medications Medication Sig Magnesium Chloride (SLOW-MAG) 71.5 mg TbEC Take 1 tablet by mouth three times daily. (Patient taking differently: Take 1 tablet by mouth four times daily.) omeprazole (PRILOSEC) 20 mg capsule Take 1 capsule by mouth twice daily. (Patient taking differently: Take 20 mg by mouth once daily.) amLODIPine (NORVASC) 5 mg tablet levothyroxine (SYNTHROID) 50 mcg tablet Take 50 mcg by mouth once daily. ergocalciferol, vitamin D2, (VITAMIN D2 ORAL) Take by mouth once daily. sodium bicarbonate 650 mg tablet Take 650 mg by mouth four times daily. rosuvastatin (CRESTOR) 5 mg tablet Take 5 mg by mouth once daily. (Patient not taking: Reported on 09/28/2024) famotidine (PEPCID) 20 mg tablet Take 2 tablets by mouth once daily. magnesium oxide (MAG-OX) 400 mg tablet Take 1 tablet by mouth twice daily. Fenofibric Acid 105 mg tab Take 1 tablet by mouth once daily. 120 mg daily (Patient not taking: Reported on 09/28/2024) No current facility-administered medications for this visit. OBJECTIVE BP 148/78 Pulse 77 Resp 20 Ht 162.6 cm (5' 4) Wt 93 kg (205 lb) BMI 35.19 kg/m? BMI 35.19 kg/(m2) Physical Exam Vitals reviewed. Constitutional: General: She is not in acute distress. Appearance: She is obese. She is not ill-appearing. Cardiovascular: Rate and Rhythm: Normal rate and regular rhythm. Heart sounds: Normal heart sounds. Pulmonary: Breath sounds: Normal breath sounds. Abdominal: General: Abdomen is flat. There is no distension. Palpations: Abdomen is soft. There is no mass. Tender (more content not included)... Normal [facility] Basic metabolic 2000 panelon 08-09-2024 Anion gap [Moles/Vol] 17 mmol/L High 8-15 [facility] Comment on above: Order Comment: Speci men Type: BLOOD SPECIMEN Ordering Facility: Address: [address] [place] [address] Performed By: #### 2 4321-2 #### [facility] CLIA [id number] [address] [address] [place] Calcium [Mass/Vol] 8.7 mg/dL Normal 8.5-10.2 [facility] Comment on above: Order Comment: Speci men Type: BLOOD SPECIMEN Ordering Facility: Address: [address] [place] [address] Performed By: #### 2 4321-2 #### [facility] CLIA [id number] [address] [address] [place] Chloride [Moles/Vol] 103 mmol/L Normal 98-107 [facility] Comment on above: Order Comment: Speci men Type: BLOOD SPECIMEN Ordering Facility: Address: [address] [place] [address] Performed By: #### 2 4321-2 #### [facility] CLIA [id number] [address] [address] [place] CO2 [Moles/Vol] 17 mmol/L Low 22-30 [facility] Comment on above: Order Comment: Speci men Type: BLOOD SPECIMEN Ordering Facility: Address: [address] [place] [address] Performed By: #### 2 4321-2 #### [facility] CLIA [id number] [address] [address] [place] Creatinine [Mass/Vol] 3.79 mg/dL High 0.58-0.96 [facility] Comment on above: Order Comment: Speci men Type: BLOOD SPECIMEN Ordering Facility: [address] Address: [address] [place], [place] [address] Performed By: #### 2 4321-2 #### [facility] CLIA [id number] [address] [place] [address] [place] Creatinine and Glomerular filtration rate.predicted panel (S/P/Bld) 13 mL/min/1.73m??? Low >=60 [facility] Comment on above: Order Comment: Andres luna Type: BLOOD SPECIMEN Ordering Facility: [address] Address: [address] [place], [place] [id number] Result Comment: Claudia mated Glomerular Filtration Rate (eGFR) is calculated using the 2020 CKD-EPI creatinine equation. This equation utilizes serum creatinine, sex, and age as parameters. The creatinine assay has traceable calibration to isotope dilution-mass spectrometry. Refer to KDIGO guidelines for clinical interpretation. In patients with unstable renal function, e.g. those with acute kidney injury, the eGFR may not accurately reflect actual GFR. Performed By: #### 2 4321-2 #### [facility] CLIA [id number] [address] [place], [place] [address] [place] Glucose [Mass/Vol] 78 mg/dL Normal 74-99 [facility] Comment on above: Order Comment: Andres luna Type: BLOOD SPECIMEN Ordering Facility: [address] Address: [address] [place], [place] [id number] Result Comment: The [place] Diabetes Association (ADA) provides guidance for cutoff values for fasting glucose and random glucose. The ADA defines fasting as no caloric intake for at least 8 hours. Fasting plasma glucose results between 100 to 125 mg/dL indicate increased risk for diabetes (prediabetes). Fasting plasma glucose results greater than or equal to 126 mg/dL meet the criteria for diagnosis of diabetes. In the absence of unequivocal hyperglycemia, results should be confirmed by repeat testing. In a patient with classic symptoms of hyperglycemia or hyperglycemic crisis, random plasma glucose results greater than or equal to 200 mg/dL meet the criteria for diagnosis of diabetes. Reference: Standards of Medical Care in Diabetes 2016, [place] Diabetes Association. Diabetes Care. 2016.39(Suppl 1). Performed By: #### 2 4321-2 #### [facility] CLIA [id number] [address] [place] [address] [place] Potassium [Moles/Vol] 4.3 mmol/L Normal 3.7-5.1 [facility] Comment on above: Order Comment: Speci men Type: BLOOD SPECIMEN Ordering Facility: Address: [place] [address] Performed By: #### 2 4321-2 #### [facility] CLIA [id number] [address] [place] [address] [place] Sodium [Moles/Vol] 137 mmol/L Normal 136-144 [facility] Comment on above: Order Comment: Speci men Type: BLOOD SPECIMEN Ordering Facility: Address: [place] [address] Performed By: #### 2 4321-2 #### [facility] CLIA [id number] [address] [place] [address] [place] Urea nitrogen [Mass/Vol] 32 mg/dL High 7-21 [facility] Comment on above: Order Comment: Speci men Type: BLOOD SPECIMEN Ordering Facility: Address: [place] [address] Performed By: #### 2 4321-2 #### [facility] CLIA [id number] [address] [place] [address] [place] 25-HYDROXY D2+D3on 5 25-hydroxyvitamin D3 [Mass/Vol] 44.8 ng/mL Normal 30.0-100.0 [facility] Comment on above: Order Comment: Speci men Type: BLOOD SPECIMEN Ordering Facility: Address: [place] [address] Result Comment: Defi cient: <20.1 ng/mL Insufficient: 20.1 - 29.9 ng/mL Sufficient: 30.0 - 100.0 ng/mL Toxic: >150.0 ng/mL Reference: Devyn MEI, N Engl J Med (2007)357:266-84 This test was developed and its performance characteristics determined by the [facility] [place] at the [facility]. The U.S. Food and Drug Administration has not approved or cleared this test, however, FDA clearance or approval is not currently required for clinical use. Performed By: #### 2 731-8, 81217-5, 39209-8 #### [facility] CLIA [id number] [address] [place] [address] [place] Vitamin D2 [Mass/Vol] 44.8 ng/mL Normal [facility] Comment on above: Order Comment: Speci men Type: BLOOD SPECIMEN Ordering Facility: oster Address: [place] [address] Performed By: #### 2 731-8, , #### [facility] CLIA [id number] [address] [place], [place] [id number] [place] Vitamin D3 [Mass/Vol] ng/mL Normal [facility] Comment on above: Order Comment: Speci men Type: BLOOD SPECIMEN Ordering Facility: oster Address: [place] [address] Performed By: #### 2 731-8, , 33403-9 #### [facility] CLIA [id number] [address] [place] [address] [place] ALBUMIN/CREATININE RATIO, UR INEon 07-30-2024 Albumin DL <= 20 mg/L (U) [Mass/Vol] 265.7 mg/L Normal [facility] Comment on above: Order Comment: Speci men Type: BLOOD SPECIMEN Ordering Facility: oster Address: [facility] [place] [address] Performed By: #### 2 731-8, , 84057-5 #### [facility] CLIA [id number] [address] [address] [place] Albumin/Creatinine (U) [Mass ratio] 1661 mg/g High <30 [facility] Comment on above: Order Comment: Speci men Type: BLOOD SPECIMEN Ordering Facility: [facility] [place] Address: [address] [place] [address] Result Comment: Adul t Male and Female Nephrotic Criteria: <30 mg/g is considered normal to mildly increased 30-300 mg/g is considered moderately increased >300 mg/g is considered severely increased KDIGO. (2013). KDIGO 2012 Clinical Practice Guideline for the Evaluation and Management of Chronic Kidney Disease. Official Journal of the International Society of Nephrology, 3(1), 1-150. Performed By: #### 2 731-8, 26747-9, 23935-9 #### [facility] CLIA [id number] [address] [place] [address] [place] Creatinine (U) [Mass/Vol] 16.0 mg/dL Low 20.0-300.0 [facility] Comment on above: Order Comment: Andres men Type: BLOOD SPECIMEN Ordering Facility: [facility] [place] Address: [address] [place] [address] Performed By: #### 2 731-8, 78275-9, 15076-9 #### [facility] CLIA [id number] [address] [place] [address] [place] CBC panel Auto (Bld)on 07-30 Erythrocyte distribution width (RBC) [Ratio] 14.0 % Normal 11.5-15.0 [facility] Comment on above: Order Comment: Speci men Type: BLOOD SPECIMEN Ordering Facility: [facility] [place] Address: [address] [place], [place] [id number] Performed By: #### 2 731-8, 18733-5, 67721-8 #### [facility] CLIA [id number] [address] [place] [address] [place] Hematocrit (Bld) [Volume fraction] 29.1 % Low 36.0-46.0 [facility] Comment on above: Order Comment: Speci men Type: BLOOD SPECIMEN Ordering Facility: [facility] [place] Address: [address] [place] [address] Performed By: #### 2 731-8, 65714-3, 56196-4 #### [facility] CLIA [id number] [address] [place] [address] [place] Hemoglobin (Bld) [Mass/Vol] 9.4 g/dL Low 11.5-15.5 [facility] Comment on above: Order Comment: Speci men Type: BLOOD SPECIMEN Ordering Facility: [facility] [place] Address: [facility] [place] [address] Performed By: #### 2 731-8, 97141-2, 07325-3 #### [facility] CLIA [id number] [address] [place] [address] [place] MCH (RBC) [Entitic mass] 29.1 pg Normal 26.0-34.0 [facility] Comment on above: Order Comment: Speci men Type: BLOOD SPECIMEN Ordering Facility: [facility] [place] Address: [facility] [place] [id number] Performed By: #### 2 731-8, 26823-5, 95468-7 #### [facility] CLIA [id number] [address] [place] [address] [place] MCHC (RBC) [Mass/Vol] 32.3 g/dL Normal 30.5-36.0 [facility] Comment on above: Order Comment: Speci men Type: BLOOD SPECIMEN Ordering Facility: [facility] [place] Address: [facility] [place] [address] Performed By: #### 2 731-8, 70586-9, 07637-8 #### [facility] CLIA [id number] [address] [place] [address] [place] MCV (RBC) [Entitic vol] 90.1 fL Normal 80.0-100.0 [facility] Comment on above: Order Comment: Speci men Type: BLOOD SPECIMEN Ordering Facility: oster Address: [facility] [place] [address] Performed By: #### 2 731-8, 86974-1, 23136-8 #### [facility] CLIA [id number] [address] [place], [place] [address] [place] Nucleated RBC (Bld) [#/Vol] 10*3/uL Normal <0.01 [facility] Comment on above: Order Comment: Speci men Type: BLOOD SPECIMEN Ordering Facility: Address: [facility] [place] [address] Performed By: #### 2 731-8, 54790-6, 80749-7 #### [facility] CLIA [id number] [address] [place] [address] [place] Platelet mean volume (Bld) [Entitic vol] 10.5 fL Normal 9.0-12.7 [facility] Comment on above: Order Comment: Speci men Type: BLOOD SPECIMEN Ordering Facility: oster Address: [facility] [place] [address] Performed By: #### 2 731-8, , 89151-0 #### [facility] CLIA [id number] [address] [place], [place] [address] [place] Platelets (Bld) [#/Vol] 339 10*3/uL Normal 150-400 [facility] Comment on above: Order Comment: Speci men Type: BLOOD SPECIMEN Ordering Facility: Address: [address] [place] [address] Performed By: #### 2 731-8, , 47538-9 #### [facility] CLIA [id number] [address] [place], [place] [address] [place] RBC (Bld) [#/Vol] 3.23 10*6/uL Low 3.90-5.20 [facility] Comment on above: Order Comment: Speci men Type: BLOOD SPECIMEN Ordering Facility: Address: [address] [place] [address] Performed By: #### 2 731-8, 01336-5, 42295-6 #### [facility] CLIA [id number] [address] [place] [address] [place] WBC (Bld) [#/Vol] 9.72 10*3/uL Normal 3.70-11.00 [facility] Comment on above: Order Comment: Speci men Type: BLOOD SPECIMEN Ordering Facility: Address: [address] [place] [address] Performed By: #### 2 731-8, 77522-6, 40364-9 #### [facility] CLIA [id number] [address] [place] [address] [place] Magnesium SerPl-mCncon 07-30 Magnesium [Mass/Vol] 1.4 mg/dL Low 1.7-2.3 [facility] Comment on above: Order Comment: Speci men Type: BLOOD SPECIMEN Ordering Facility: Address: [facility] [place] [address] Performed By: #### 2 4321-2 #### [facility] CLIA [id number] [address] [place] [address] [place] PTH-Intact SerPl-mCncon 04-0 Parathyrin.intact [Mass/Vol] 1159 pg/mL High 15-65 [facility] Comment on above: Order Comment: Speci men Type: BLOOD SPECIMEN Ordering Facility: Address: [address] [place] [address] Performed By: #### 2 4321-2 #### [facility] CLIA [id number] [address] [place], [place] [address] [place] Renal function 2000 panelon 07-30-2024 Albumin [Mass/Vol] 4.3 g/dL Normal 3.9-4.9 [facility] Comment on above: Order Comment: Speci men Type: BLOOD SPECIMEN Ordering Facility: Address: [address] [place] [address] Performed By: #### 2 4321-2 #### [facility] CLIA [id number] [address] [address] [place] Anion gap [Moles/Vol] 16 mmol/L High 8-15 [facility] Comment on above: Order Comment: Speci men Type: BLOOD SPECIMEN Ordering Facility: Address: [address] [place] [address] Performed By: #### 2 4321-2 #### [facility] CLIA [id number] [address] [address] [place] Calcium [Mass/Vol] 9.4 mg/dL Normal 8.5-10.2 [facility] Comment on above: Order Comment: Speci men Type: BLOOD SPECIMEN Ordering Facility: Address: [address] [place] [address] Performed By: #### 2 4321-2 #### [facility] CLIA [id number] [address] [address] [place] Chloride [Moles/Vol] 103 mmol/L Normal 98-107 [facility] Comment on above: Order Comment: Speci men Type: BLOOD SPECIMEN Ordering Facility: Address: [address] [place] [address] Performed By: #### 2 4321-2 #### [facility] CLIA [id number] [address] [address] [place] CO2 [Moles/Vol] 16 mmol/L Low 22-30 [facility] Comment on above: Order Comment: Speci men Type: BLOOD SPECIMEN Ordering Facility: Address: [address] [place] [address] Performed By: #### 2 4321-2 #### [facility] CLIA [id number] [address] [address] [place] Creatinine [Mass/Vol] 4.09 mg/dL High 0.58-0.96 [facility] Comment on above: Order Comment: Andres luna Type: BLOOD SPECIMEN Ordering Facility: [address] Address: [address] [place] [address] Performed By: #### 2 4321-2 #### [facility] CLIA [id number] 95[address] [place] [address] [place] Creatinine and Glomerular filtration rate.predicted panel (S/P/Bld) 12 mL/min/1.73m??? Low >=60 [facility] Comment on above: Order Comment: Specjayce luna Type: BLOOD SPECIMEN Ordering Facility: [address] Address: [place] [address] Result Comment: Claudia mated Glomerular Filtration Rate (eGFR) is calculated using the 2020 CKD-EPI creatinine equation. This equation utilizes serum creatinine, sex, and age as parameters. The creatinine assay has traceable calibration to isotope dilution-mass spectrometry. Refer to KDIGO guidelines for clinical interpretation. In patients with unstable renal function, e.g. those with acute kidney injury, the eGFR may not accurately reflect actual GFR. Performed By: #### 2 4321-2 #### [facility] CLIA [id number] [address] [place] [address] [place] Glucose [Mass/Vol] 93 mg/dL Normal 74-99 [facility] Comment on above: Order Comment: Andres luna Type: BLOOD SPECIMEN Ordering Facility: [address] Address: [place] [address] Result Comment: The [place] Diabetes Association (ADA) provides guidance for cutoff values for fasting glucose and random glucose. The ADA defines fasting as no caloric intake for at least 8 hours. Fasting plasma glucose results between 100 to 125 mg/dL indicate increased risk for diabetes (prediabetes). Fasting plasma glucose results greater than or equal to 126 mg/dL meet the criteria for diagnosis of diabetes. In the absence of unequivocal hyperglycemia, results should be confirmed by repeat testing. In a patient with classic symptoms of hyperglycemia or hyperglycemic crisis, random plasma glucose results greater than or equal to 200 mg/dL meet the criteria for diagnosis of diabetes. Reference: Standards of Medical Care in Diabetes 2016, [place] [employer] Association. Diabetes Care. 2016.39(Suppl 1). Performed By: #### 2 4321-2 #### [facility] CLIA [id number] [address] [address] [place] Phosphate [Mass/Vol] 5.9 mg/dL High 2.7-4.8 [facility] Comment on above: Order Comment: Speci men Type: BLOOD SPECIMEN Ordering Facility: Address: [address] [place] [address] Performed By: #### 2 4321-2 #### [facility] CLIA [id number] [address] [address] [place] Potassium [Moles/Vol] 6.0 mmol/L High 3.7-5.1 [facility] Comment on above: Order Comment: Speci men Type: BLOOD SPECIMEN Ordering Facility: Address: [address] [place] [address] Performed By: #### 2 4321-2 #### [facility] CLIA [id number] [address] [address] [place] Sodium [Moles/Vol] 135 mmol/L Low 136-144 [facility] Comment on above: Order Comment: Speci men Type: BLOOD SPECIMEN Ordering Facility: Address: [address] [place] [address] Performed By: #### 2 4321-2 #### [facility] CLIA [id number] [address] [address] [place] Urea nitrogen [Mass/Vol] 40 mg/dL High 7-21 [facility] Comment on above: Order Comment: Speci men Type: BLOOD SPECIMEN Ordering Facility: Address: [address] [place] [address] Performed By: #### 2 4321-2 #### [facility] CLIA [id number] [address] [address] [place] 1,25-dihydroxyvitamin D3 [Ma ss/Vol]on 05-01-2024 VIT D1,25 DIHYDROXY 37.2 pg/mL Normal 19.9-79.3 [facility] Comment on above: Order Comment: Speci men Type: BLOOD SPECIMEN Ordering Facility: Address: [address] [place] [address] Performed By: #### 1 649-3 #### [facility] CLIA [id number] [facility] [place] [address] [place] 25-HYDROXY D2+D3on 25-hydroxyvitamin D3 [Mass/Vol] 58.6 ng/mL Normal 30.0-100.0 [facility] Comment on above: Order Comment: Speci men Type: BLOOD SPECIMEN Ordering Facility: Address: [address] [place] [address] Result Comment: Defi cient: <20.1 ng/mL Insufficient: 20.1 - 29.9 ng/mL Sufficient: 30.0 - 100.0 ng/mL Toxic: >150.0 ng/mL Reference: Devyn MEI, N Engl J Med (2007)357:266-81 This test was developed and its performance characteristics determined by the Pathology and Laboratory [facility] [place] at the [facility]. The U.S. Food and Drug Administration has not approved or cleared this test, however, FDA clearance or approval is not currently required for clinical use. Performed By: #### 2 4321-2 #### [facility] CLIA [id number] [address] [place] [address] [place] Vitamin D2 [Mass/Vol] 58.6 ng/mL Normal [facility] Comment on above: Order Comment: Speci men Type: BLOOD SPECIMEN Ordering Facility: Address: [address] [place] [address] Performed By: #### 2 4321-2 #### [facility] CLIA [id number] [facility] [address] [address] [place] Vitamin D3 [Mass/Vol] ng/mL Normal [facility] Comment on above: Order Comment: Speci men Type: BLOOD SPECIMEN Ordering Facility: [facility] [place] Address: [facility] [place] [id number] Performed By: #### 2 4321-2 #### [facility] CLIA [id number] [address] [place] [id number] [place] ALBUMIN/CREATININE RATIO, UR INEon 05-01-2024 Albumin DL <= 20 mg/L (U) [Mass/Vol] 154.4 mg/L Normal [facility] Comment on above: Order Comment: Speci men Type: BLOOD SPECIMEN Ordering Facility: [facility] [place] Address: [place] [address] Performed By: #### 2 4321-2 #### [facility] CLIA [id number] [address] [place] [address] [place] Albumin/Creatinine (U) [Mass ratio] 1058 mg/g High <30 [facility] Comment on above: Order Comment: Speci men Type: BLOOD SPECIMEN Ordering Facility: [facility] [place] Address: [address] [place] [address] Result Comment: Adul t Male and Female Nephrotic Criteria: <30 mg/g is considered normal to mildly increased 30-300 mg/g is considered moderately increased >300 mg/g is considered severely increased KDIGO. (2013). KDIGO 2012 Clinical Practice Guideline for the Evaluation and Management of Chronic Kidney Disease. Official Journal of the International Society of Nephrology, 3(1), 1-150. Performed By: #### 2 4321-2 #### [facility] CLIA [id number] [address] [place], [place] [address] [place] Creatinine (U) [Mass/Vol] 14.6 mg/dL Low 20.0-300.0 [facility] Comment on above: Order Comment: Speci men Type: BLOOD SPECIMEN Ordering Facility: [facility] [place] Address: [address] [place] [address] Performed By: #### 2 4321-2 #### [facility] CLIA [id number] [address] [place], [place] [address] [place] CBC panel Auto (Bld)on 05-01 Erythrocyte distribution width (RBC) [Ratio] 14.5 % Normal 11.5-15.0 [facility] Comment on above: Order Comment: Speci men Type: BLOOD SPECIMEN Ordering Facility: [address] Address: [place] [address] Performed By: #### 5 8410-2 #### [facility] CLIA [id number] [address] [place] [address] [place] Hematocrit (Bld) [Volume fraction] 29.0 % Low 36.0-46.0 [facility] Comment on above: Order Comment: Speci men Type: BLOOD SPECIMEN Ordering Facility: [facility] [place] Address: [address] [place] [address] Performed By: #### 5 8410-2 #### [facility] CLIA [id number] [address] [place] [address] [place] Hemoglobin (Bld) [Mass/Vol] 9.2 g/dL Low 11.5-15.5 [facility] Comment on above: Order Comment: Speci men Type: BLOOD SPECIMEN Ordering Facility: [address] Address: [address] [place] [address] Performed By: #### 5 8410-2 #### [facility] CLIA [id number] [address] [place] [address] [place] MCH (RBC) [Entitic mass] 29.1 pg Normal 26.0-34.0 [facility] Comment on above: Order Comment: Speci men Type: BLOOD SPECIMEN Ordering Facility: [facility] [place] Address: [place] [address] Performed By: #### 5 8410-2 #### [facility] CLIA [id number] [address] [place] [address] [place] MCHC (RBC) [Mass/Vol] 31.7 g/dL Normal 30.5-36.0 [facility] Comment on above: Order Comment: Speci men Type: BLOOD SPECIMEN Ordering Facility: Address: [address] [place] [address] Performed By: #### 5 8410-2 #### [facility] CLIA [id number] [address] [place] [address] [place] MCV (RBC) [Entitic vol] 91.8 fL Normal 80.0-100.0 [facility] Comment on above: Order Comment: Speci men Type: BLOOD SPECIMEN Ordering Facility: Address: [address] [place] [address] Performed By: #### 5 8410-2 #### [facility] CLIA [id number] [address] [place] [address] [place] Nucleated RBC (Bld) [#/Vol] 10*3/uL Normal <0.01 [facility] Comment on above: Order Comment: Speci men Type: BLOOD SPECIMEN Ordering Facility: Address: [address] [place] [address] Performed By: #### 5 8410-2 #### [facility] CLIA [id number] [address] [place] [address] [place] Platelet mean volume (Bld) [Entitic vol] 11.0 fL Normal 9.0-12.7 [facility] Comment on above: Order Comment: Speci men Type: BLOOD SPECIMEN Ordering Facility: Address: [address] [place] [address] Performed By: #### 5 8410-2 #### [facility] CLIA [id number] [address] [place] [address] [place] Platelets (Bld) [#/Vol] 314 10*3/uL Normal 150-400 [facility] Comment on above: Order Comment: Speci men Type: BLOOD SPECIMEN Ordering Facility: Address: [address] [place] [address] Performed By: #### 5 8410-2 #### [facility] CLIA [id number] [facility] [address] [address] [place] RBC (Bld) [#/Vol] 3.16 10*6/uL Low 3.90-5.20 [facility] Comment on above: Order Comment: Speci men Type: BLOOD SPECIMEN Ordering Facility: [facility] Address: [address] [place] [address] Performed By: #### 5 8410-2 #### [facility] CLIA [id number] [address] [place] [address] [place] WBC (Bld) [#/Vol] 8.51 10*3/uL Normal 3.70-11.00 [facility] Comment on above: Order Comment: Speci men Type: BLOOD SPECIMEN Ordering Facility: [facility] Address: [address] [place] [address] Performed By: #### 5 8410-2 #### [facility] CLIA [id number] [address] [place], [place] [address] [place] Magnesium SerPl-mCncon - Magnesium [Mass/Vol] 1.3 mg/dL Low 1.7-2.3 [facility] Comment on above: Order Comment: Speci men Type: BLOOD SPECIMEN Ordering Facility: Address: [address] [place] [address] Performed By: #### 2 731-8, 55252-0, 81881-2 #### [facility] CLIA [id number] [address] [place], [place] [address] [place] PTH-Intact SerPl-mCncon 01-0 Parathyrin.intact [Mass/Vol] 812 pg/mL High 15-65 [facility] Comment on above: Order Comment: Speci men Type: BLOOD SPECIMEN Ordering Facility: Address: [address] [place] [address] Performed By: #### 2 731-8, 29845-3, 71546-0 #### [facility] CLIA [id number] [address] [address] [place] Renal function 2000 panelon 05-01-2024 Albumin [Mass/Vol] 4.2 g/dL Normal 3.9-4.9 [facility] Comment on above: Order Comment: Speci men Type: BLOOD SPECIMEN Ordering Facility: Address: [address] [place] [address] Performed By: #### 2 731-8, , 31936-0 #### [facility] CLIA [id number] [address] [place] [id number] [place] Anion gap [Moles/Vol] 14 mmol/L Normal 8-15 [facility] Comment on above: Order Comment: Speci men Type: BLOOD SPECIMEN Ordering Facility: Address: [address] [place] [address] Performed By: #### 2 731-8, , 51406-6 #### [facility] CLIA [id number] [address] [address] [place] Calcium [Mass/Vol] 9.4 mg/dL Normal 8.5-10.2 [facility] Comment on above: Order Comment: Speci men Type: BLOOD SPECIMEN Ordering Facility: Address: [address] [place] [address] Performed By: #### 2 731-8, , 33955-0 #### [facility] CLIA [id number] [address] [address] [place] Chloride [Moles/Vol] 103 mmol/L Normal 98-107 [facility] Comment on above: Order Comment: Speci men Type: BLOOD SPECIMEN Ordering Facility: Address: [address] [place] [address] Performed By: #### 2 731-8, , 24307-2 #### [facility] CLIA [id number] [address] [place] [address] [place] CO2 [Moles/Vol] 17 mmol/L Low 22-30 [facility] Comment on above: Order Comment: Speci cheryl Type: BLOOD SPECIMEN Ordering Facility: [facility] [place] Address: [address] [place] [address] Performed By: #### 2 731-8, 36407-9, 66612-9 #### [facility] CLIA [id number] [facility] [place] [address] [place] Creatinine [Mass/Vol] 3.98 mg/dL High 0.58-0.96 [facility] Comment on above: Order Comment: Speci men Type: BLOOD SPECIMEN Ordering Facility: [facility] [place] Address: [address] [place] [address] Performed By: #### 2 731-8, 48660-1, 89865-5 #### [facility] CLIA [id number] [address] [place] [address] [place] Creatinine and Glomerular filtration rate.predicted panel (S/P/Bld) 12 mL/min/1.73m??? Low >=60 [facility] Comment on above: Order Comment: Specjayce luna Type: BLOOD SPECIMEN Ordering Facility: [address] Address: [address] [place] [address] Result Comment: Claudia mated Glomerular Filtration Rate (eGFR) is calculated using the 2020 CKD-EPI creatinine equation. This equation utilizes serum creatinine, sex, and age as parameters. The creatinine assay has traceable calibration to isotope dilution-mass spectrometry. Refer to KDIGO guidelines for clinical interpretation. In patients with unstable renal function, e.g. those with acute kidney injury, the eGFR may not accurately reflect actual GFR. Performed By: #### 2 731-8, 70305-0, 06629-4 #### [facility] CLIA [id number] [address] [place] [id number] [place] Glucose [Mass/Vol] 94 mg/dL Normal 74-99 [facility] Comment on above: Order Comment: Speci men Type: BLOOD SPECIMEN Ordering Facility: [address] Address: [address] [place] [address] Result Comment: The [place] Diabetes Association (ADA) provides guidance for cutoff values for fasting glucose and random glucose. The ADA defines fasting as no caloric intake for at least 8 hours. Fasting plasma glucose results between 100 to 125 mg/dL indicate increased risk for diabetes (prediabetes). Fasting plasma glucose results greater than or equal to 126 mg/dL meet the criteria for diagnosis of diabetes. In the absence of unequivocal hyperglycemia, results should be confirmed by repeat testing. In a patient with classic symptoms of hyperglycemia or hyperglycemic crisis, random plasma glucose results greater than or equal to 200 mg/dL meet the criteria for diagnosis of diabetes. Reference: Standards of Medical Care in Diabetes 2016, [place] Diabetes Association. Diabetes Care. 2016.39(Suppl 1). Performed By: #### 2 731-8, 92290-6, 33200-2 #### [facility] CLIA [id number] [address] [address] [place] Phosphate [Mass/Vol] 5.6 mg/dL High 2.7-4.8 [facility] Comment on above: Order Comment: Andres luna Type: BLOOD SPECIMEN Ordering Facility: [address] Address: [address] [place] [address] Performed By: #### 2 731-8, , 52946-9 #### [facility] CLIA [id number] [address] [address] [place] Potassium [Moles/Vol] 5.7 mmol/L High 3.7-5.1 [facility] Comment on above: Order Comment: Andres luna Type: BLOOD SPECIMEN Ordering Facility: [address] Address: [address] [place] [address] Performed By: #### 2 731-8, , 91362-8 #### [facility] CLIA [id number] [address] [address] [place] Sodium [Moles/Vol] 134 mmol/L Low 136-144 [facility] Comment on above: Order Comment: Speci men Type: BLOOD SPECIMEN Ordering Facility: Address: [address] [place] [address] Performed By: #### 2 731-8, , #### [facility] CLIA [id number] [address] [place] [address] [place] Urea nitrogen [Mass/Vol] 32 mg/dL High 7- [facility] Comment on above: Order Comment: Speci men Type: BLOOD SPECIMEN Ordering Facility: Address: [address] [place] [address] Performed By: #### 2 731-8, , #### [facility] CLIA [id number] [address] [place] [address] [place] 25([place])[facility]3 [facility] 25-hydroxyvitamin D3 [Mass/Vol] 36.2 ng/mL Normal 31.0-80.0 [facility] Comment on above: Order Comment: Speci men Type: BLOOD SPECIMEN Ordering Facility: Address: [address] [place] [address] Result Comment: Clas sification of 25 [place] Vitamin D status: Deficiency/Insufficiency: < or = 30 ng/ml. Sufficiency/Optimal Levels: 31-80 ng/mL Toxicity: > 100 ng/mL. Test performed by chemiluminescent immunoassay. Performed By: #### 2 4321-2 #### [facility] CLIA [id number] [address] [place] [address] [place] ALBUMIN/CREATININE RATIO, UR INEon 02-17-2024 Albumin DL <= 20 mg/L (U) [Mass/Vol] 144.3 mg/L Normal [facility] Comment on above: Order Comment: Speci men Type: BLOOD SPECIMEN Ordering Facility: Address: [address] [place] [address] Performed By: #### 2 731-8, , #### [facility] CLIA [id number] [address] [address] [place] Albumin/Creatinine (U) [Mass ratio] 481 mg/g High <30 [facility] Comment on above: Order Comment: Speci men Type: BLOOD SPECIMEN Ordering Facility: [facility] [place] Address: [address] [place] [address] Result Comment: Adul t Male and Female Nephrotic Criteria: <30 mg/g is considered normal to mildly increased 30-300 mg/g is considered moderately increased >300 mg/g is considered severely increased KDIGO. (2013). KDIGO 2012 Clinical Practice Guideline for the Evaluation and Management of Chronic Kidney Disease. Official Journal of the International Society of Nephrology, 3(1), 1-150. Performed By: #### 2 731-8, 49713-7, 78296-0 #### [facility] CLIA [id number] [address] [place], [place] [id number] [place] Creatinine (U) [Mass/Vol] 30.0 mg/dL Normal 20.0-300.0 [facility] Comment on above: Order Comment: Speci men Type: BLOOD SPECIMEN Ordering Facility: [facility] [place] Address: [address] [place] [address] Performed By: #### 2 731-8, 47198-6, 43856-5 #### [facility] CLIA [id number] [address] [place], [place] [address] [place] CBC panel Auto (Bld)on 02-16 Erythrocyte distribution width (RBC) [Ratio] 14.1 % Normal 11.5-15.0 [facility] Comment on above: Order Comment: Speci men Type: URINE SPECIMEN Ordering Facility: [facility] Address: [address], [place] [address] Performed By: #### U ACR #### [facility] CLIA [id number] [address] [address] [place] Hematocrit (Bld) [Volume fraction] 30.5 % Low 36.0-46.0 [facility] Comment on above: Order Comment: Speci men Type: URINE SPECIMEN Ordering Facility: [address] [facility] [place] [address] Performed By: #### U ACR #### [facility] CLIA [id number] [address] [place] [address] [place] Hemoglobin (Bld) [Mass/Vol] 9.4 g/dL Low 11.5-15.5 [facility] Comment on above: Order Comment: Speci men Type: URINE SPECIMEN Ordering Facility: [address] Address: [facility] [place] [address] Performed By: #### U ACR #### [facility] CLIA [id number] [address] [place] [address] [place] MCH (RBC) [Entitic mass] 28.1 pg Normal 26.0-34.0 [facility] Comment on above: Order Comment: Speci men Type: URINE SPECIMEN Ordering Facility: [address] Address: [facility] [place] [address] Performed By: #### U ACR #### [facility] CLIA [id number] [address] [place] [address] [place] MCHC (RBC) [Mass/Vol] 30.8 g/dL Normal 30.5-36.0 [facility] Comment on above: Order Comment: Speci men Type: URINE SPECIMEN Ordering Facility: [address] Address: [facility] [place] [address] Performed By: #### U ACR #### [facility] CLIA [id number] [address] [place] [address] [place] MCV (RBC) [Entitic vol] 91.0 fL Normal 80.0-100.0 [facility] Comment on above: Order Comment: Speci men Type: URINE SPECIMEN Ordering Facility: [address] Address: [facility] [address] Performed By: #### U ACR #### [facility] CLIA [id number] [address] [place] [address] [place] Nucleated RBC (Bld) [#/Vol] 10*3/uL Normal <0.01 [facility] Comment on above: Order Comment: Speci men Type: URINE SPECIMEN Ordering Facility: [address] Address: [address] [place] [address] [place] [address] Performed By: #### U ACR #### [facility] CLIA [id number] [address] [place] [address] [place] Platelet mean volume (Bld) [Entitic vol] 10.9 fL Normal 9.0-12.7 [facility] Comment on above: Order Comment: Speci men Type: URINE SPECIMEN Ordering Facility: [address] Address: [address] [place] [address] [place] [address] Performed By: #### U ACR #### [facility] CLIA [id number] [address] [place] [address] [place] Platelets (Bld) [#/Vol] 376 10*3/uL Normal 150-400 [facility] Comment on above: Order Comment: Speci men Type: URINE SPECIMEN Ordering Facility: [address] Address: [address] [place] [address] [place] [address] Performed By: #### U ACR #### [facility] CLIA [id number] [address] [place] [address] [place] RBC (Bld) [#/Vol] 3.35 10*6/uL Low 3.90-5.20 [facility] Comment on above: Order Comment: Speci men Type: URINE SPECIMEN Ordering Facility: [address] Address: [address] [place] [address] [place] [address] Performed By: #### U ACR #### [facility] CLIA [id number] [address] [place] [address] [place] WBC (Bld) [#/Vol] 9.46 10*3/uL Normal 3.70-11.00 [facility] Comment on above: Order Comment: Speci men Type: URINE SPECIMEN Ordering Facility: Address: [address] [place] [address] [address] , [place] [address] Performed By: #### U ACR #### [facility] CLIA [id number] [address] [place] [address] [place] Magnesium SerPl-mCncon 02-16 Magnesium [Mass/Vol] 0.8 mg/dL Low 1.7-2.3 [facility] Comment on above: Order Comment: Speci men Type: BLOOD SPECIMEN Ordering Facility: Address: [address] [place] [address] Performed By: #### 2 731-8, 38479-8, 20256-2 #### [facility] CLIA [id number] [address] [place] [address] [place] PTH-Intact SerPl-mCncon - Parathyrin.intact [Mass/Vol] 818 pg/mL High 15-65 [facility] Comment on above: Order Comment: Speci men Type: BLOOD SPECIMEN Ordering Facility: Address: [address] [place], [place] [address] Performed By: #### 2 731-8, 75733-4, 20033-4 #### [facility] CLIA [id number] [address] [place], [place] [address] [place] Renal function 2000 panelon 02-17-2024 Albumin [Mass/Vol] 3.9 g/dL Normal 3.9-4.9 [facility] Comment on above: Order Comment: Speci men Type: BLOOD SPECIMEN Ordering Facility: Address: [address] [place] [address] Performed By: #### 2 731-8, 03738-0, 07156-8 #### [facility] CLIA [id number] [address] [place] [address] [place] Anion gap [Moles/Vol] 14 mmol/L Normal 8-15 [facility] Comment on above: Order Comment: Speci men Type: BLOOD SPECIMEN Ordering Facility: Address: [place] [address] Performed By: #### 2 731-8, 75187-0, 15272-1 #### [facility] CLIA [id number] [facility] [place] [address] [place] Calcium [Mass/Vol] 8.5 mg/dL Normal 8.5-10.2 [facility] Comment on above: Order Comment: Speci men Type: BLOOD SPECIMEN Ordering Facility: Address: [place] [address] Performed By: #### 2 731-8, , 82072-2 #### [facility] CLIA [id number] [address] [place] [address] [place] Chloride [Moles/Vol] 105 mmol/L Normal 98-107 [facility] Comment on above: Order Comment: Speci men Type: BLOOD SPECIMEN Ordering Facility: Address: [place] [address] Performed By: #### 2 731-8, 83595-7, 35409-2 #### [facility] CLIA [id number] [address] [place], [place] [address] [place] CO2 [Moles/Vol] 17 mmol/L Low 22-30 [facility] Comment on above: Order Comment: Speci men Type: BLOOD SPECIMEN Ordering Facility: Address: [address] [place] [address] Performed By: #### 2 731-8, 84982-7, 06976-3 #### [facility] CLIA [id number] [address] [place] [address] [place] Creatinine [Mass/Vol] 3.77 mg/dL High 0.58-0.96 [facility] Comment on above: Order Comment: Andres luna Type: BLOOD SPECIMEN Ordering Facility: [address] Address: [place] [address] Performed By: #### 2 731-8, 09693-1, 86378-3 #### [facility] CLIA [id number] [address] [place] [address] [place] Creatinine and Glomerular filtration rate.predicted panel (S/P/Bld) 13 mL/min/1.73m??? Low >=60 [facility] Comment on above: Order Comment: Andres luna Type: BLOOD SPECIMEN Ordering Facility: [address] Address: [place] [address] Result Comment: Claudia mated Glomerular Filtration Rate (eGFR) is calculated using the 2020 CKD-EPI creatinine equation. This equation utilizes serum creatinine, sex, and age as parameters. The creatinine assay has traceable calibration to isotope dilution-mass spectrometry. Refer to KDIGO guidelines for clinical interpretation. In patients with unstable renal function, e.g. those with acute kidney injury, the eGFR may not accurately reflect actual GFR. Performed By: #### 2 731-8, 94375-6, 63563-1 #### [facility] CLIA [id number] [address] [place], [place] [address] [place] Glucose [Mass/Vol] 120 mg/dL High 74-99 [facility] Comment on above: Order Comment: Andres luna Type: BLOOD SPECIMEN Ordering Facility: [address] Address: [place] [address] Result Comment: The [place] Diabetes Association (ADA) provides guidance for cutoff values for fasting glucose and random glucose. The ADA defines fasting as no caloric intake for at least 8 hours. Fasting plasma glucose results between 100 to 125 mg/dL indicate increased risk for diabetes (prediabetes). Fasting plasma glucose results greater than or equal to 126 mg/dL meet the criteria for diagnosis of diabetes. In the absence of unequivocal hyperglycemia, results should be confirmed by repeat testing. In a patient with classic symptoms of hyperglycemia or hyperglycemic crisis, random plasma glucose results greater than or equal to 200 mg/dL meet the criteria for diagnosis of diabetes. Reference: Standards of Medical Care in Diabetes 2016, [place] [employer]. Diabetes Care. 2016.39(Suppl 1). Performed By: #### 2 731-8, , 55387-6 #### [facility] CLIA [id number] [address] [address] [place] Phosphate [Mass/Vol] 4.4 mg/dL Normal 2.7-4.8 [facility] Comment on above: Order Comment: Speci men Type: BLOOD SPECIMEN Ordering Facility: Address: [address] [place] [address] Performed By: #### 2 731-8, , #### [facility] CLIA [id number] [address] [place], [place] [address] [place] Potassium [Moles/Vol] 5.1 mmol/L Normal 3.7-5.1 [facility] Comment on above: Order Comment: Speci men Type: BLOOD SPECIMEN Ordering Facility: Address: [address] [place] [address] Performed By: #### 2 731-8, , #### [facility] CLIA [id number] [address] [place] [address] [place] Sodium [Moles/Vol] 136 mmol/L Normal 136-144 [facility] Comment on above: Order Comment: Speci men Type: BLOOD SPECIMEN Ordering Facility: Address: [address] [place] [address] Performed By: #### 2 731-8, , #### [facility] CLIA [id number] [address] [place] [address] [place] Urea nitrogen [Mass/Vol] 26 mg/dL High 7-21 [facility] Comment on above: Order Comment: Speci men Type: BLOOD SPECIMEN Ordering Facility: Address: [address], [place] [address] Performed By: #### 2 731-8, 71668-8, 65370-2 #### [facility] CLIA [id number] [address] [place] [address] [place] 12 Lead EKGon 02-02-2024 12 Lead EKG [facility] [address] [place] [address] 12 Lead EKG 02/02/24 0913 MR#: [id number] Acct: [id number] Name: CATARINA BOYER Rep #: [id number] : 1960 63 From: Wong Salmeron MD Attending Dr: Status: DEP ER Ordering Dr: Alec Parks DO Date: 02/02/24 Location: ED Sex: F C Admitted: Test Reason : ABD PAIN Blood Pressure : / mmHG Vent. Rate : 067 BPM Atrial Rate : 067 BPM P-R Int : 138 ms QRS Dur : 076 ms QT Int : 346 ms P-R-T Axes : 060 015 127 degrees QTc Int : 365 ms Normal sinus rhythm Nonspecific T wave abnormality Abnormal ECG Confirmed by KRISTEN ANTHONY, WONG ([id number]), editor sound YASHIRA OLIVER ([id number]) on 02/03/2024 2:13:46 PM Referred By: TB Confirmed By:WONG SALMERON MD 02/03/24 1413 Date Wong Salmeron MD CC: Dr. Camille Goodman MD; Dr. Alec Parks DO Signed Normal [facility] Abdomen/Pelvis W IV Cont ONL Yon 02-02-2024 Abdomen/Pelvis W IV Cont ONLY [facility] Imaging Services [address] [place] [address] Abdomen/Pelvis W IV Cont ONLY MR#: [id number] Acct: [id number] Name: CATARINA BOYER Rep #: [id number] : 1960 F 63 From: Joni ring MD PCP: Dr. Camille Goodman MD Status: REG ER Study: Abdomen/Pelvis W IV Cont ONLY Date of Exam: Exam# [id number] Ordering Dr: Alec Parks DO [id number] STUDY: CT ABDOMEN AND PELVIS WITH CONTRAST REASON FOR EXAM: Female, 63 years old. LLQ pain RADIATION DOSAGE (If Supplied By Facility): CTDIvol = ( 15.41 ) mGy, DLP = ( 1096.90 ) mGycm TECHNIQUE: Transaxial images were obtained from the dome of the diaphragm to the symphysis pubis without oral contrast. IV 75mL Isovue-300 was administered. Sagittal and coronal images were reconstructed. Individualized dose optimization techniques were used for this CT. COMPARISON: None. FINDINGS: The visualized lung bases are unremarkable. Coronary artery calcification. Normal liver. Normal gallbladder and extrahepatic biliary system. Normal spleen. Normal pancreas. There is symmetric enlargement of the adrenal glands suggesting adrenal hyperplasia. Bilateral renal cysts. There is a nontypical hypodense nodule in the lateral aspect of the left kidney with increased markings in the surrounding fat. This not a typical cyst. Correlation with ultrasound is recommended for further evaluation. There is also evidence of a 1.6 cm x 2.4 cm solid nodule in the posterior inferior aspect of the left kidney. Correlation with ultrasound recommended. Normal visualized stomach. Normal small intestine. There is diverticulosis, with thickening of the colon wall, and pericolonic inflammation changes consistent with acute diverticulitis. The appendix is visualized and appears normal. Normal abdominal aorta. Normal inferior vena cava. Normal retroperitoneum. Normal urinary bladder. The patient is status post hysterectomy. Minimal amount of free fluid is seen in the cul-de-sac. There is a small umbilical hernia containing fat. Normal osseous structures. CT/Abdomen/Pelvis W IV Cont ONLY IMPRESSION: Findings in keeping with acute noncomplicated sigmoid diverticulitis with a small amount of free fluid in the pelvis. Bilateral renal cysts although there are atypical cystic and solid nodule in the left kidney. Correlation with ultrasound recommended. Electronically Signed: Joni Myers MD at 10:28 EDT , CC: Dr. Camille Goodman MD; Dr. Alec Parks DO Data Analytics Developer: Signed Normal [facility] CBC W/Diff, Automatedon 01-23 0-2023 Absolute Lymph 1.83 X10 3/uL Normal 0.83-4.51 [facility] Comment on above: Performed By: #### L 501.2450, L500.4050, L100.0100 #### [facility] [address] [place], [address] Absolute Neut 9.4 X10 3/uL High 2.0-7.7 [facility] Comment on above: Performed By: #### L 501.2450, L500.4050, L100.0100 #### [facility] [address] [place], [address] Basophils/100 WBC (Bld) 0.3 % Normal 0-1 [facility] Comment on above: Performed By: #### L 501.2450, L500.4050, L100.0100 #### [facility] [address] [place], [address] Eosinophils/100 WBC (Bld) 0.7 % Normal 0-5 [facility] Comment on above: Performed By: #### L 501.2450, L500.4050, L100.0100 #### [facility] [address] [place], [address] Erythrocyte distribution width (RBC) [Ratio] 13.3 % Normal 11.6-14.6 [facility] Comment on above: Performed By: #### L 501.2450, L500.4050, L100.0100 #### [facility] [address] [place], [address] Hematocrit (Bld) [Volume fraction] 31.5 % Low 37-47 [facility] Comment on above: Performed By: #### L 501.2450, L500.4050, L100.0100 #### [facility] [address] [place], [address] Hemoglobin (Bld) [Mass/Vol] 9.7 g/dL Low 12.0-15.0 [facility] Comment on above: Performed By: #### L 501.2450, L500.4050, L100.0100 #### [facility] [address] [place], [address] IG% 0.700 Normal 0.0-0.9 [facility] Comment on above: Result Comment: IG% - Immature Granulocytes (promyelocytes, myelocytes and metamyelocytes) > 1% indicates that a LEFT SHIFT is Present. Performed By: #### L 501.2450, L500.4050, L100.0100 #### [facility] [address] [place], [address] Lymphocytes/100 WBC (Bld) 15.0 % Low 19-41 [facility] Comment on above: Performed By: #### L 501.2450, L500.4050, L100.0100 #### [facility] [address] [place], [address] MCH (RBC) [Entitic mass] 27.6 pg Normal 27.0-32.0 [facility] Comment on above: Performed By: #### L 501.2450, L500.4050, L100.0100 #### [facility] [address] [place], [address] MCHC (RBC) [Mass/Vol] 30.8 g/dL Low 32-36 [facility] Comment on above: Performed By: #### L 501.2450, L500.4050, L100.0100 #### [facility] [address] [place], [address] MCV (RBC) [Entitic vol] 89.7 fL Normal 81-99 [facility] Comment on above: Performed By: #### L 501.2450, L500.4050, L100.0100 #### [facility] Laboratory [address] [place], [address] Monocytes/100 WBC (Bld) 6.1 % Normal 0-10 [facility] Comment on above: Performed By: #### L 501.2450, L500.4050, L100.0100 #### [facility] Laboratory [address] [place], [address] Neutrophils/100 WBC (Bld) 77.2 % High 47-70 [facility] Comment on above: Performed By: #### L 501.2450, L500.4050, L100.0100 #### [facility] Laboratory [address] [place], [address] Nucleated RBC (Bld) [#/Vol] 0 10*3/uL Normal 0-5 [facility] Comment on above: Performed By: #### L 501.2450, L500.4050, L100.0100 #### [facility] Laboratory [address] [place], [address] Platelet mean volume (Bld) [Entitic vol] 10.5 fL Normal 6.2-12.0 [facility] Comment on above: Performed By: #### L 501.2450, L500.4050, L100.0100 #### [facility] Laboratory [address] [place], [address] Platelets (Bld) [#/Vol] 381 10*3/uL Normal 150-450 [facility] Comment on above: Performed By: #### L 501.2450, L500.4050, L100.0100 #### [facility] Laboratory [address] [place], [address] RBC (Bld) [#/Vol] 3.51 10*6/uL Low 4.2-5.4 [facility] Comment on above: Performed By: #### L 501.2450, L500.4050, L100.0100 #### [facility] Laboratory [address] [place], [address] RDW SD 44.0 fl High 35.1-43.9 [facility] Comment on above: Performed By: #### L 501.2450, L500.4050, L100.0100 #### [facility] Laboratory [address] [place], [address] WBC (Bld) [#/Vol] 12.2 10*3/uL High 4.4-11.0 [facility] Comment on above: Performed By: #### L 501.2450, L500.4050, L100.0100 #### [facility] Laboratory [address] [place], [address] Comprehensive Metabolic [facility] 02-02-2024 Albumin [Mass/Vol] 2.9 g/dL Low 3.2-5.0 [facility] Comment on above: Performed By: #### L 501.2450, L500.4050, L100.0100 #### [facility] Laboratory [address] [place], [address] Albumin/Globulin [Mass ratio] 0.7 {ratio} Low 0.9-2.4 [facility] Comment on above: Performed By: #### L 501.2450, L500.4050, L100.0100 #### [facility] Laboratory [address] [place], [address] ALK P 118 U/L High 45-117 [facility] Comment on above: Performed By: #### L 501.2450, L500.4050, L100.0100 #### [facility] Laboratory [address] [place], [address] ALT [Catalytic activity/Vol] 7 U/L Low 13-56 [facility] Comment on above: Performed By: #### L 501.2450, L500.4050, L100.0100 #### [facility] Laboratory [address] [place], [address] AST [Catalytic activity/Vol] 5 U/L Low 15-37 [facility] Comment on above: Performed By: #### L 501.2450, L500.4050, L100.0100 #### [facility] Laboratory [address] [place], [address] Bilirubin [Mass/Vol] 1.30 mg/dL High 0.20-1.00 [facility] Comment on above: Result Comment: For patients on eltrombopag therapy, use of Dimension [place] TBIL is not recommended. Performed By: #### L 501.2450, L500.4050, L100.0100 #### [facility] Laboratory [address] [place], [address] BUN/CRE 6.5 RATIO Low 10-20 [facility] Comment on above: Performed By: #### L 501.2450, L500.4050, L100.0100 #### [facility] Laboratory [address] [place], [address] CA,Total 9.4 mg/dL Normal 8.5-10.1 [facility] Comment on above: Performed By: #### L 501.2450, L500.4050, L100.0100 #### [facility] Laboratory [address] [place], [address] Chloride [Moles/Vol] 108 mmol/L High 98-107 [facility] Comment on above: Performed By: #### L 501.2450, L500.4050, L100.0100 #### [facility] Laboratory [address] [place], [address] CO2 [Moles/Vol] 20.0 mmol/L Low 21.0-32.0 [facility] Comment on above: Performed By: #### L 501.2450, L500.4050, L100.0100 #### [facility] Laboratory [address] [place], [address] Creatinine [Mass/Vol] 4.00 mg/dL High 0.55-1.02 [facility] Comment on above: Result Comment: The validity of the calculated GFR GFRAA in patients over 70 years has not been determined. Clinical correlation is essential. Performed By: #### L 501.2450, L500.4050, L100.0100 #### [facility] Laboratory [address] [place], [address] ECRCL 15.72 ml/min Normal [facility] Comment on above: Performed By: #### L 501.2450, L500.4050, L100.0100 #### [facility] Laboratory [address] [place], [address] EST GFR - AA 15 mL/min Low >60 [facility] Comment on above: Result Comment: Afri can [place] GFR Calc Performed By: #### L 501.2450, L500.4050, L100.0100 #### [facility] Laboratory [address] [place], [address] GAP 8 Normal 5-15 [facility] Comment on above: Performed By: #### L 501.2450, L500.4050, L100.0100 #### [facility] Laboratory [address] [place], [address] GFR/1.73 sq M.predicted among non-blacks MDRD (S/P/Bld) [Vol rate/Area] 12 mL/min/{1.73_m2} Low >60 [facility] Comment on above: Result Comment: Non- GFR Calc Performed By: #### L 501.2450, L500.4050, L100.0100 #### [facility] Laboratory [address] [place], [address] Globulin (S) [Mass/Vol] 4.0 g/dL Normal 2.2-4.2 [facility] Comment on above: Performed By: #### L 501.2450, L500.4050, L100.0100 #### [facility] Laboratory [address] [place], [address] Glucose [Mass/Vol] 99 mg/dL Normal 74-106 [facility] Comment on above: Performed By: #### L 501.2450, L500.4050, L100.0100 #### [facility] Laboratory [address] [place], [address] Potassium [Moles/Vol] 4.6 mmol/L Normal 3.5-5.1 [facility] Comment on above: Performed By: #### L 501.2450, L500.4050, L100.0100 #### [facility] Laboratory [address] [place], [address] Sodium [Moles/Vol] 136 mmol/L Normal 136-145 [facility] Comment on above: Performed By: #### L 501.2450, L500.4050, L100.0100 #### [facility] Laboratory [address] [place], [address] T PROT 6.9 g/dL Normal 6.4-8.2 [facility] Comment on above: Performed By: #### L 501.2450, L500.4050, L100.0100 #### [facility] Laboratory [address] [place], [address] Urea nitrogen [Mass/Vol] 26 mg/dL High - [facility] Comment on above: Performed By: #### L 501.2450, L500.4050, L100.0100 #### [facility] Laboratory [address] [place], [address] Emergency Department Summary on 02-02-2024 Emergency Department Summary [facility] Medical Records Department [address] [place] [address] Emergency Department Summary 02/02/24 MR#: [id number] Acct: [id number] Name: CATARINA BOYER Rep #: [id number] : 1960 63 From: Alec Parks DO PCP: Dr. Camille Goodman MD Status:REG ER Location: ED HPI History of Present Illness Chief Complaint: Abd Pain Narrative Narrative: Patient is a 63-year-old female past medical history of chronic kidney disease, hypertension, hypothyroidism who presented to the emerged part with a chief complaint of abdominal pain. Patient states that she has had abdominal pain for approximately 3 weeks now ever since her had . She states that eating exacerbates her pain. States that she had nausea associate with this. States that she had a colonoscopy back in 2021 had some polyps at that point time. Patient states that she is post to be has been evaluated for potential dialysis however she asked them to hold off so she could be with her . She states that she does have an appointment at the end of the month with her scarrer. Patient rates her pain an 8 out of 10. PFSH PFSH Home Medications ???Medication ???Instructions ???Recorded ???Last Taken ???Type levothyroxine 50 mcg tablet 50 mcg PO DAILY 11/22/17 02/01/24 History magnesium oxide 400 mg (241.3 mg 400 mg PO TID 11/22/17 02/02/24 History magnesium) tablet acetaminophen 500 mg tablet 1,000 mg PO Q6H PRN pain 02/02/24 02/02/24 History amlodipine 10 mg tablet 10 mg PO DAILY 02/02/24 02/01/24 History amoxicillin 875 mg-potassium 1 tab PO Q12H 7 days #14 tabs 02/02/24 Unknown Rx clavulanate 125 mg tablet ergocalciferol (vitamin D2) 1,250 1,250 mcg PO .COMPLEX 02/02/24 01/20/24 History mcg (50,000 unit) capsule hyoscyamine sulfate 0.125 mg tablet 0.125 mg PO Q6H PRN dyspepsia 5 02/02/24 Unknown Rx days #20 tabs omeprazole 40 mg capsule,delayed 40 mg PO DAILY PRN heartburn 02/02/24 02/01/24 History release ondansetron 4 mg disintegrating 4 mg PO Q6H PRN nausea and 02/02/24 Unknown Rx tablet vomiting #20 tabs ondansetron 4 mg disintegrating 4 mg PO Q8H PRN nausea and vomiting 02/02/24 02/02/24 History tablet psyllium (Hydrocil Instant oral 1 packet PO DAILY PRN constipation 02/02/24 02/01/24 History packet) rosuvastatin 20 mg tablet 20 mg PO DAILY 02/02/24 02/01/24 History sodium bicarbonate 650 mg tablet 650 mg PO 4X/DAY 02/02/24 02/02/24 History tramadol 50 mg tablet 50 mg PO Q6H PRN pain 3 days #12 02/02/24 Unknown Rx tabs Allergy/AdvReac Type Severity Reaction Status Date / Time acetaminophen (From Percocet) Allergy Shortness Verified 02/02/24 08:53 of breath codeine Allergy Shortness Verified 02/02/24 08:53 of breath hydromorphone (From Dilaudid) Allergy Shortness Verified 02/02/24 08:53 of breath morphine Allergy Shortness Verified 02/02/24 08:53 of breath moxifloxacin (From Avelox) Allergy Shortness Verified 02/02/24 08:53 of breath oxycodone (From Percocet) Allergy Shortness Verified 02/02/24 08:53 of breath Penicillins Allergy Shortness Verified 02/02/24 08:53 of breath Social History Smoking Status: Current every day smoker tobacco type: cigarettes ROS ROS ED ROS Narrative Constitutional: Denies any fevers, chills, headaches, lightness, dizziness Eyes: Denies double vision blurry vision changes vision Cardiovascular: Denies chest pain Respiratory: Denies coughing wheezing shortness of breath Abdomen: Complains of abdominal pain as noted above as well as nausea denies any diarrhea denies dark tarry stools denies blood in her stool : patient states that she has had decreased urine output lately Neurological: Denies numbness, weakness, tingling Musculoskeletal: Denies back pain Skin: Denies rashes or lesions EXAM Physical Exam Narrative Exam Narrative: general: Patient lying in bed rest comfortably did not appear to be acute distress Head: Atraumatic, normocephalic Eyes: PERRL bilateral, EOMI bilateral, no conjunctival injection noted Neck: Soft, supple, trachea midline Cardiovascular: Regular rate and rhythm no murmurs gallops rubs noted Respiratory: Clear to auscultation bilaterally Abdomen: Soft, nondistended, tenderness palpation left lower quadrant as well as suprapubic region no rebound or guarding on exam Extremities: +5/5 strength noted in the bilateral upper and lower extremities, no pedal edema on exam Neurological: Patient follow commands knew that she was at [facility] there is 2023 Skin: Warm, dry, intact Const Vital Signs: 02/02/24 08:52 02/02/24 10:52 02/02/24 12:00 Temperature 98.1 F Temperature Source Temporal Pulse Rate 80 65 65 Respiratory Rate 14 15 14 (more content not included)... Normal [facility] Lipaseon 02-02-2024 Lipase [Catalytic activity/Vol] 30 U/L Normal 13-75 [facility] Comment on above: Result Comment: Jonathan flores note: LIPASE revised reference range effective 22. New Lipase methodology. Expected to produce lower values than the previous assay method. NEW Reference Range: 13 - 75 U/L Performed By: #### L 501.2450, L500.4050, L100.0100 #### [facility] Laboratory [address] [place], [address] Urinalysis, Completeon 02-01 BACTERIA 0 SEEN Normal None Seen [facility] Comment on above: Order Comment: CLEAN CATCH Performed By: #### L 400.0001 #### [facility] Laboratory [address] [place], [address] EPI,SQUAMOUS 0 SEEN Normal 5-10 [facility] Comment on above: Order Comment: CLEAN CATCH Performed By: #### L 400.0001 #### [facility] Laboratory [address] [place], [address] Mucus Ql (Urine sed) 0 SEEN Normal [facility] Comment on above: Order Comment: CLEAN CATCH Performed By: #### L 400.0001 #### [facility] Laboratory [address] [place], [address] RBC 0 SEEN Normal 0-5 [facility] Comment on above: Order Comment: CLEAN CATCH Performed By: #### L 400.0001 #### [facility] Laboratory [address] [place], [address] WBC 0 SEEN Normal 0-5 [facility] Comment on above: Order Comment: CLEAN CATCH Performed By: #### L 400.0001 #### [facility] Laboratory [address] [place], [address] 25(OH)D3 [facility] 2023 25-hydroxyvitamin D3 [Mass/Vol] 30.5 ng/mL Low 31.0-80.0 [facility] Comment on above: Order Comment: Speci men Type: URINE SPECIMEN Ordering Facility: [address] Address: [address] [place] [address], [place] [address] Result Comment: Clas sification of 25 [place] Vitamin D status: Deficiency/Insufficiency: < or = 30 ng/ml. Sufficiency/Optimal Levels: 31-80 ng/mL Toxicity: > 100 ng/mL. Test performed by chemiluminescent immunoassay. Performed By: #### U ACR #### [facility] CLIA [id number] [address] [place] [address] [place] ALBUMIN/CREATININE RATIO, UR INEon 01-10-2024 Albumin DL <= 20 mg/L (U) [Mass/Vol] 139.8 mg/L Normal [facility] Comment on above: Order Comment: Speci men Type: URINE SPECIMEN Ordering Facility: [facility] [place] Address: [facility] [address]ef[address], [place] [address] Performed By: #### U ACR #### [facility] CLIA [id number] [address] [place] [address] [place] Albumin/Creatinine (U) [Mass ratio] 874 mg/g High <30 [facility] Comment on above: Order Comment: Speci men Type: URINE SPECIMEN Ordering Facility: [facility] [place] Address: [facility] Seferino CRAWFORDJ[address]EN[address], [place] [address] Result Comment: Adul t Male and Female Nephrotic Criteria: <30 mg/g is considered normal to mildly increased 30-300 mg/g is considered moderately increased >300 mg/g is considered severely increased KDIGO. (2013). KDIGO 2012 Clinical Practice Guideline for the Evaluation and Management of Chronic Kidney Disease. Official Journal of the International Society of Nephrology, 3(1), 1-150. Performed By: #### U ACR #### [facility] CLIA [id number] [address] [place] [address] [place] Creatinine (U) [Mass/Vol] 16.0 mg/dL Low 20.0-300.0 [facility] Comment on above: Order Comment: Speci men Type: URINE SPECIMEN Ordering Facility: [facility] [place] [facility] [place] [address] Performed By: #### U ACR #### [facility] CLIA [id number] [address] [place] [address] [place] CBC panel Auto (Bld)on 01-09 Erythrocyte distribution width (RBC) [Ratio] 13.3 % Normal 11.5-15.0 [facility] Comment on above: Order Comment: Speci men Type: BLOOD SPECIMEN Ordering Facility: [facility] [place] Address: [address] [place] [address] Performed By: #### 2 4321-2 #### [facility] CLIA [id number] [address] [place] [id number] [place] Hematocrit (Bld) [Volume fraction] 30.8 % Low 36.0-46.0 [facility] Comment on above: Order Comment: Speci men Type: BLOOD SPECIMEN Ordering Facility: [address] Address: [address] [place] [address] Performed By: #### 2 4321-2 #### [facility] CLIA [id number] [address] [place], [place] [address] [place] Hemoglobin (Bld) [Mass/Vol] 9.8 g/dL Low 11.5-15.5 [facility] Comment on above: Order Comment: Speci men Type: BLOOD SPECIMEN Ordering Facility: [address] Address: [address] [place] [address] Performed By: #### 2 4321-2 #### [facility] CLIA [id number] [address] [place] [address] [place] MCH (RBC) [Entitic mass] 28.6 pg Normal 26.0-34.0 [facility] Comment on above: Order Comment: Speci men Type: BLOOD SPECIMEN Ordering Facility: [address] Address: [address] [place] [address] Performed By: #### 2 4321-2 #### [facility] CLIA [id number] [address] [place], [place] [address] [place] MCHC (RBC) [Mass/Vol] 31.8 g/dL Normal 30.5-36.0 [facility] Comment on above: Order Comment: Speci men Type: BLOOD SPECIMEN Ordering Facility: [address] Address: [place] [address] Performed By: #### 2 4321-2 #### [facility] CLIA [id number] [address] [place], [place] [address] [place] MCV (RBC) [Entitic vol] 89.8 fL Normal 80.0-100.0 [facility] Comment on above: Order Comment: Speci men Type: BLOOD SPECIMEN Ordering Facility: Address: [address] [place] [address] Performed By: #### 2 4321-2 #### [facility] CLIA [id number] [address] [place] [address] [place] Nucleated RBC (Bld) [#/Vol] 10*3/uL Normal <0.01 [facility] Comment on above: Order Comment: Speci men Type: BLOOD SPECIMEN Ordering Facility: Address: [address] [place] [address] Performed By: #### 2 4321-2 #### [facility] CLIA [id number] [address] [place] [address] [place] Platelet mean volume (Bld) [Entitic vol] 11.3 fL Normal 9.0-12.7 [facility] Comment on above: Order Comment: Speci men Type: BLOOD SPECIMEN Ordering Facility: Address: [address] [place] [address] Performed By: #### 2 4321-2 #### [facility] CLIA [id number] [address] [place] [address] [place] Platelets (Bld) [#/Vol] 340 10*3/uL Normal 150-400 [facility] Comment on above: Order Comment: Speci men Type: BLOOD SPECIMEN Ordering Facility: Address: [address] [place] [address] Performed By: #### 2 4321-2 #### [facility] CLIA [id number] [address] [place] [address] [place] RBC (Bld) [#/Vol] 3.43 10*6/uL Low 3.90-5.20 [facility] Comment on above: Order Comment: Speci men Type: BLOOD SPECIMEN Ordering Facility: Address: [address] [place] [address] Performed By: #### 2 4321-2 #### [facility] CLIA [id number] [address] [address] [place] WBC (Bld) [#/Vol] 8.26 10*3/uL Normal 3.70-11.00 [facility] Comment on above: Order Comment: Speci men Type: BLOOD SPECIMEN Ordering Facility: Address: [facility] [place] [address] Performed By: #### 2 4321-2 #### [facility] CLIA [id number] [address] [place], [place] [address] [place] Magnesium SerPl-mCncon 01-09 Magnesium [Mass/Vol] 1.4 mg/dL Low 1.7-2.3 [facility] Comment on above: Order Comment: Speci men Type: BLOOD SPECIMEN Ordering Facility: Address: [facility] [place] [address] Performed By: #### 2 731-8, 35232-4, 45997-3 #### [facility] CLIA [id number] [address] [place], [place] [address] [place] PTH-Intact SerPl-mCncon 12-24 Parathyrin.intact [Mass/Vol] 622 pg/mL High 15-65 [facility] Comment on above: Order Comment: Speci men Type: BLOOD SPECIMEN Ordering Facility: Address: [facility] [place] [address] Performed By: #### 2 731-8, 88961-4, 44557-3 #### [facility] CLIA [id number] [address] [place] [address] [place] Renal function 2000 panelon 01-10-2024 Albumin [Mass/Vol] 4.2 g/dL Normal 3.9-4.9 [facility] Comment on above: Order Comment: Speci men Type: BLOOD SPECIMEN Ordering Facility: Address: [facility] [place] [address] Performed By: #### 2 731-8, 83623-2, 90443-6 #### [facility] CLIA [id number] [address] [address] [place] Anion gap [Moles/Vol] 14 mmol/L Normal 8-15 [facility] Comment on above: Order Comment: Speci men Type: BLOOD SPECIMEN Ordering Facility: Address: [address] [place] [address] Performed By: #### 2 731-8, , #### [facility] CLIA [id number] [address] [address] [place] Calcium [Mass/Vol] 9.8 mg/dL Normal 8.5-10.2 [facility] Comment on above: Order Comment: Speci men Type: BLOOD SPECIMEN Ordering Facility: Address: [address] [place] [address] Performed By: #### 2 731-8, , #### [facility] CLIA [id number] [address] [address] [place] Chloride [Moles/Vol] 102 mmol/L Normal 98-107 [facility] Comment on above: Order Comment: Speci men Type: BLOOD SPECIMEN Ordering Facility: Address: [address] [place] [address] Performed By: #### 2 731-8, , 70579-7 #### [facility] CLIA [id number] [address] [address] [place] CO2 [Moles/Vol] 17 mmol/L Low 22-30 [facility] Comment on above: Order Comment: Speci men Type: BLOOD SPECIMEN Ordering Facility: Address: [address] [place] [address] Performed By: #### 2 731-8, , 10534-9 #### [facility] CLIA [id number] [address] [place] [id number] [place] Creatinine [Mass/Vol] 3.54 mg/dL High 0.58-0.96 [facility] Comment on above: Order Comment: Andres luna Type: BLOOD SPECIMEN Ordering Facility: [address] Address: [address] [place] [address] Performed By: #### 2 731-8, 16617-1, 77176-9 #### [facility] CLIA [id number] [address] [place], [place] [address] [place] Creatinine and Glomerular filtration rate.predicted panel (S/P/Bld) 14 mL/min/1.73m??? Low >=60 [facility] Comment on above: Order Comment: Andres luna Type: BLOOD SPECIMEN Ordering Facility: [address] Address: [place] [address] Result Comment: Claudia mated Glomerular Filtration Rate (eGFR) is calculated using the 2020 CKD-EPI creatinine equation. This equation utilizes serum creatinine, sex, and age as parameters. The creatinine assay has traceable calibration to isotope dilution-mass spectrometry. Refer to KDIGO guidelines for clinical interpretation. In patients with unstable renal function, e.g. those with acute kidney injury, the eGFR may not accurately reflect actual GFR. Performed By: #### 2 731-8, 63590-6, 13482-5 #### [facility] CLIA [id number] [address] [place], [place] [id number] [place] Glucose [Mass/Vol] 96 mg/dL Normal 74-99 [facility] Rehabilitation Comment on above: Order Comment: Andres luna Type: BLOOD SPECIMEN Ordering Facility: [address] Address: [place] [address] Result Comment: The [place] [employer] Association (ADA) provides guidance for cutoff values for fasting glucose and random glucose. The ADA defines fasting as no caloric intake for at least 8 hours. Fasting plasma glucose results between 100 to 125 mg/dL indicate increased risk for diabetes (prediabetes). Fasting plasma glucose results greater than or equal to 126 mg/dL meet the criteria for diagnosis of diabetes. In the absence of unequivocal hyperglycemia, results should be confirmed by repeat testing. In a patient with classic symptoms of hyperglycemia or hyperglycemic crisis, random plasma glucose results greater than or equal to 200 mg/dL meet the criteria for diagnosis of diabetes. Reference: Standards of Medical Care in Diabetes 2016, [place] [employer] Association. Diabetes Care. 2016.39(Suppl 1). Performed By: #### 2 731-8, , 59826-4 #### [facility] CLIA [id number] [address] [address] [place] Phosphate [Mass/Vol] 4.8 mg/dL Normal 2.7-4.8 [facility] Comment on above: Order Comment: Andres luna Type: BLOOD SPECIMEN Ordering Facility: [facility] [place] Address: [place] [address] Performed By: #### 2 731-8, , #### [facility] CLIA [id number] [address] [place] [id number] [place] Potassium [Moles/Vol] 5.4 mmol/L High 3.7-5.1 [facility] Comment on above: Order Comment: Andres luna Type: BLOOD SPECIMEN Ordering Facility: [facility] [place] Address: [place] [address] Performed By: #### 2 731-8, , #### [facility] CLIA [id number] [address] [address] [place] Sodium [Moles/Vol] 133 mmol/L Low 136-144 [facility] Comment on above: Order Comment: Yasi men Type: BLOOD SPECIMEN Ordering Facility: [facility] [place] Address: [address] [place] [address] Performed By: #### 2 731-8, , #### [facility] CLIA [id number] [address] [address] [place] Urea nitrogen [Mass/Vol] 25 mg/dL High 7-21 [facility] Comment on above: Order Comment: Speci men Type: BLOOD SPECIMEN Ordering Facility: [address] Address: [address] [place] [address] Performed By: #### 2 731-8, 43122-2, 24097-8 #### [facility] CLIA [id number] [address] [place] [address] [place] XR ANKLE MINIMUM 3 VIEWS LEF Ton 11-26-2023 XR ANKLE MINIMUM 3 VIEWS LEFT ORIGINAL EXAMINATION: THREE XRAY VIEWS OF THE LEFT ANKLE 11/26/2023 5:34 pm COMPARISON: None. HISTORY: ORDERING SYSTEM PROVIDED HISTORY: Reason for Exam: fall FINDINGS: There is a small minimally displaced fracture of the anterosuperior aspect of the talus. Normal alignment of the ankle mortise. No focal osseous lesion. No evidence of significant joint effusion. There is overlying soft tissue edema. IMPRESSION: Small minimally displaced fracture of the anterosuperior aspect of the talus. Interpreted by: Elvis Hassan Preliminary Report By: Elvis Hassan Electronically signed By Elvis Hassan Dictated Date: 11/26/2023 5:56:54 PM Prelim Date: 11/26/2023 5:58:16 PM Sign Date: 11/26/2023 5:58:16 PM Ordering Provider: REJI WELCH [facility] (MD) XR WRIST MINIMUM 3 VIEWS RIG on 11-26-2023 XR WRIST MINIMUM 3 VIEWS RIGHT ORIGINAL EXAMINATION: THREE XRAY VIEWS OF THE RIGHT WRIST 11/26/2023 5:34 pm COMPARISON: None. HISTORY: ORDERING SYSTEM PROVIDED HISTORY: Reason for Exam: fall TECHNIQUE: AP, lateral, and oblique views. FINDINGS: There is mildly displaced fracture of the distal radial metaphysis with intra-articular extension. There is mild widening of the scapholunate joint space, possibly underlying ligamentous injury. There is mild soft tissue edema. Remainder of the joint spaces and articular surfaces are preserved and in gross anatomic alignment. IMPRESSION: There is mildly displaced fracture of the distal radial metaphysis with intra-articular extension. There is mild widening of the scapholunate joint space, possibly underlying ligamentous injury. Interpreted by: Antonio Jensen Preliminary Report By: Antonio Jensen Electronically signed By Antonio Jensen Dictated Date: 11/26/2023 5:58:06 PM Prelim Date: 11/26/2023 6:02:42 PM Sign Date: 11/26/2023 6:02:42 PM Ordering Provider: REJI WELCH [facility] (MD) US ABDOMEN LIMITEDon 024 US ABDOMEN LIMITED Patient Name: CATARINA BOYER : 1960 Exam Date/Time: 06/17/2023 09:33 Procedure: US ABDOMEN LIMITED Ordering Provider: GOODMAN RICHARD Reason For Exam: R74.8 ULTRASOUND ABDOMEN LIMITED CLINICAL INDICATION: Elevated lipase TECHNIQUE: Ultrasound of the pancreas COMPARISON: CT without contrast from 09/27/2022 and ultrasound from 10/01/2021 FINDINGS: Pancreas: Visualized regions demonstrate relatively normal echogenicity (hypoechoic as compared to the left lobe of the liver). There is no identifiable focal lesion, ductal dilatation or surrounding hypoechoic fluid. Some of the tail is obscured. IMPRESSION: Unremarkable ultrasound of the pancreas Report Dictated on Electronically Signed By: Vijay Luo MD Electronically Signed Date/Time: 06/18/2023 1:42 PM [facility] US Abdomen limitedon 024 Unremarkable ultrasound of the pancreas Report Dictated on Electronically Signed By: Vijay Luo MD Electronically Signed Date/Time: 06/18/2023 1:42 PM [facility] Patient Name: CATARINA BOYER : 1960 Exam Date/Time: 06/17/2023 09:33 Procedure: US ABDOMEN LIMITED Ordering Provider: GOODMAN RICHARD Reason For Exam: R74.8 ULTRASOUND ABDOMEN LIMITED CLINICAL INDICATION: Elevated lipase TECHNIQUE: Ultrasound of the pancreas COMPARISON: CT without contrast from 09/27/2022 and ultrasound from 10/01/2021 FINDINGS: Pancreas: Visualized regions demonstrate relatively normal echogenicity (hypoechoic as compared to the left lobe of the liver). There is no identifiable focal lesion, ductal dilatation or surrounding hypoechoic fluid. Some of the tail is obscured. [facility] Vijay Luo MD - 06/18/2023 [facility] Name[facility] 1960 [id number] Exam Date/Time: 06/17/2023 09:33 Procedure: US ABDOMEN LIMITED Ordering Provider: GOODMAN RICHARD Reason For Exam: R74.8 ULTRASOUND ABDOMEN LIMITED CLINICAL INDICATION: Elevated lipase TECHNIQUE: Ultrasound of the pancreas COMPARISON: CT without contrast from 09/27/2022 and ultrasound from 10/01/2021 FINDINGS: Pancreas: Visualized regions demonstrate relatively normal echogenicity (hypoechoic as compared to the left lobe of the liver). There is no identifiable focal lesion, ductal dilatation or surrounding hypoechoic fluid. Some of the tail is obscured. IMPRESSION: Unremarkable ultrasound of the pancreas Report Dictated on Electronically Signed By: Vijay Luo MD Electronically Signed Date/Time: 06/18/2023 1:42 PM EST [facility] US Abdomen limitedOrdered By : Vijay Luo on 06-18-2023 [facility] Work Phone: US Abdomen limitedon 024 Radiology Study observation (narrative) [facility] Progress Noteon 09-30-2022 Progress Note Chart reviewed for KRYSTLE QUIÑONES. TC made to Mrs. Boyer. Educated on reason for call and role of CM. Admission Dx: N/V/D Reviewed patients discharge instructions: yes 2. Medications reviewed: yes New Meds: magnesium, sodium bicarb-patient states not new medications, she has taken in the past 3. Discharge disposition: Home w/ family assist Patient states she is still not feeling well, unable to specifically state what is bothering her. Denies N/V/D today. Discussed medications and she did verbalize she has everything she needs and has no questions about new medications. She states she is eating and drinking without difficulty. Encouraged to contact PCP and nephrology to schedule follow appointments as soon as possible since she is still not feeling well. She agreed to this plan and denies need for office numbers. At this time she has no questions or concerns regarding discharge instructions or follow up plans. Encouraged her to continue to monitor symptoms and if they worsen she should contact EMS and proceed back to nearest ER for further evaluation. She voiced understanding. KRYSTLE ACR recommendations completed. Will DC from service and await future recommendations while patient continues to follow with PCP and specialists for ongoing medical management. Normal [facility] Basic metabolic 1998 panelon 09-29-2022 Anion gap [Moles/Vol] 7 mmol/L 3 - 13 mmol/L [facility] Calcium [Mass/Vol] 9.3 mg/dL 8.4 - 10. 4 mg/dL [facility] Chloride [Moles/Vol] 112 mmol/L High 98 - 10 7 mmol/L [facility] CO2 [Moles/Vol] 18 mmol/L Low 22 - 30 mmol/L [facility] Creatinine [Mass/Vol] 2.57 mg/dL High 0.52 - 1.04 mg/dL [facility] GFR/1.73 sq M.predicted MDRD (S/P/Bld) [Vol rate/Area] 20.8 mL/min/{1.73_m2} Low - PINF [facility] Comment on above: Calculation based on the Chronic Kidney Disease Epidemiology Collaboration (CKD-EPI) equation refit without adjustment for race Glucose [Mass/Vol] 117 mg/dL High 70 - 100 mg/dL [facility] Potassium [Moles/Vol] 5.8 mmol/L High 3.5 - 5.1 mmol/L [facility] Sodium [Moles/Vol] 137 mmol/L 135 - 145 mmol/L [facility] Urea nitrogen [Mass/Vol] 30 mg/dL High 7 - 17 mg/dL [facility] CBC W Auto Differential pane l (Bld)Ordered By: Sree Bates on 09-29-2022 Basophils (Bld) [#/Vol] 0.0 10*3/uL 0.0 - 0.2 10*3/uL [facility] Basophils/100 WBC (Bld) 0.7 % 0.0 - 2.0 % [facility] Eosinophils (Bld) [#/Vol] 0.1 10*3/uL 0.0 - 0.5 10*3/uL [facility] Eosinophils/100 WBC (Bld) 1.2 % 1.0 - 6.0 % [facility] Erythrocyte distribution width (RBC) [Ratio] 14.2 % 11.5 - 14.5 % [facility] Hematocrit (Bld) [Volume fraction] 26.7 % Low 35.0 - 47.0 % [facility] Hemoglobin (Bld) [Mass/Vol] 8.7 g/dL Low 11.7 - 16.0 g/dL [facility] Interpretation and review of laboratory results Abnormal [facility] Lymphocytes (Bld) [#/Vol] 0.8 10*3/uL Low 1.0 - 4.3 10*3/uL [facility] Lymphocytes/100 WBC (Bld) 14.0 % Low 20.0 - 40.0 % [facility] MCH (RBC) [Entitic mass] 27.6 pg 26.0 - 34.0 pg [facility] MCHC (RBC) [Mass/Vol] 32.5 % 32.0 - 36.0 % [facility] MCV (RBC) [Entitic vol] 84.8 fL 80.0 - 98.0 fL [facility] Monocytes (Bld) [#/Vol] 0.4 10*3/uL 0.0 - 0.8 10*3/uL [facility] Monocytes/100 WBC (Bld) 6.8 % 2.0 - 10.0 % [facility] Neutrophils (Bld) [#/Vol] 4.5 10*3/uL 1.8 - 7.0 10*3/uL [facility] Neutrophils/100 WBC (Bld) 77.3 % 40.0 - 80.0 % [facility] Nucleated RBC/100 WBC (Bld) [Ratio] 0.1 % [facility] Platelet mean volume (Bld) [Entitic vol] 9.2 fL 7.4 - 12.4 fL [facility] Platelets (Bld) [#/Vol] 269 10*3/uL 140 - 440 10*3/uL [facility] RBC (Bld) [#/Vol] 3.14 10*6/uL Low 3.8 - 5.20 10*6/uL [facility] WBC (Bld) [#/Vol] 5.8 10*3/uL 3.6 - 10.7 10*3/uL [facility] Calcium.ionized [Moles/Vol]O rdered By: Sheela Brown on 09-29-2022 Calcium.ionized (Bld) [Moles/Vol] 4.90 mg/dL 4.30 - 5.20 mg/dL [facility] [employer] Interpretation and review of laboratory results Abnormal [facility] [employer] PH, IONIZED CALCIUM 7.29 Low 7.31 - 7.46 [facility] [employer] [facility] [employer] Consulton 09-29-2022 Consult [facility] Consult Note Patient : Catarina Boyer; 62 y.o. [id number] Reason for Consult: Asked by Dr Nat Lowery MD to see for CKD 4. History of Present Illness: Catarina Boyer; 62 y.o. female with past medical history as mentioned below. Well known to Dr Moreno. History of FSGS biopsy proven. Baseline cr around 2.2 to 2.4. admitted with severe hypomagnesemia. Received IV mg and feels better. Had severe nausea and vomitings one week prior along with diarrhea. No edema. Past History/Allergies?Soc ial History: Past Medical History: Diagnosis Date CKD (chronic kidney disease) stage 4, GFR 15-29 ml/min ([facility]) Follows with Dr. Moreno Focal segmental glomerulosclerosis GERD (gastroesophageal reflux disease) Hyperlipidemia Hypertension Hypomagnesemia Hypothyroidism Allergies Allergen Reactions Codeine Cough, Hives and Nausea And Vomiting Moxifloxacin Nausea And Vomiting and Hives Penicillins Hives and Nausea Only Hydromorphone Nausea And Vomiting Morphine Nausea And Vomiting and Hives Oxycodone-Acetaminoph en Nausea And Vomiting and Hives Social History Socioeconomic History Marital status: Spouse name: Not on file Number of children: Not on file Years of education: Not on file Highest education level: Not on file Occupational History Not on file Tobacco Use Smoking status: Every Day Packs/day: 0.50 Years: 40.00 Pack years: 20.00 Types: Cigarettes Smokeless tobacco: Never Vaping Use Vaping Use: Never used Substance and Sexual Activity Alcohol use: No Drug use: Never Sexual activity: Not on file Other Topics Concern Not on file Social History Narrative Not on file Social Determinants of Health Financial Resource Strain: Not on file Food Insecurity: Not on file Transportation Needs: Not on file Physical Activity: Not on file Stress: Not on file Social Connections: Not on file Intimate Partner Violence: Not on file Housing Stability: Not on file Family History: Family History Problem Relation Name Age of Onset Heart disease Mother Diabetes Father Outpatient Medications: Medications Prior to Admission Medication Sig Dispense Refill Last Dose amLODIPine (Norvasc) 10 MG tablet Take 10 mg by mouth Every 24 hours. levothyroxine (Synthroid, Levoxyl) 50 MCG tablet Take 50 mcg by mouth Every 24 hours. ondansetron (Zofran) 4 MG tablet TAKE 1 TABLET BY MOUTH DAILY NEEDED FOR NAUSEA OR VOMITING 10 tablet 0 polyethylene glycol, PEG, 3350 (Glycolax) 17 GM/SCOOP powder TAKE 17 G BY MOUTH DAILY NEEDED (CONSTIPATION) 1530 g 0 Review of Systems: ROS was otherwise negative except as mentioned in the HABEMATOLEL. Vital Signs: Vitals: 09/29/22 0800 BP: (!) 140/71 Pulse: 74 Resp: 16 Temp: 36.8 ?C (98.2 ?F) SpO2: 92% Wt Readings from Last 2 Encounters: 09/29/22 104 kg (229 lb 4.8 oz) 12/24/21 103 kg (228 lb) 24HR INTAKE/OUTPUT: Intake/Output Summary (Last 24 hours) at 09/29/2022 1036 Last data filed at 09/28/2022 1250 Gross per 24 hour Intake -- Output 400 ml Net -400 ml Physical Examination: General: AAO x 3, speaking in full sentences, no accessory muscle use. HEENT: Atraumatic, normocephalic, no throat congestion, moist mucosa. Eyes: Pupils equal, round and reactive to light, EOMI. Neck: No JVD, no thyromegaly, no lymphadenopathy. Chest: Bilateral vesicular breath sounds, no rales or wheezes. Cardiac: S1 S2 RR, no murmurs, gallops or rubs, JVP not raised. Abdomen: Soft, non-tender, no masses or organomegaly, BS audible. : No suprapubic or flank tenderness. Neuro: AAO x 3, No FND. SKIN: No rashes, good skin turgor. Extremities: No edema, palpable peripheral pulses, no calf tenderness. Labs: Last 3 CBC: Recent Labs 09/27/22 0510 09/28/22 0428 09/29/22 0606 WBC 8.1 7.2 5.8 RBC 3.35* 3.32* 3.14* HGB 9.2* 9.2* 8.7* HCT 28.0* 27.9* 26.7* MCV 83.7 83.9 84.8 MCH 27.5 27.6 27.6 MCHC 32.8 32.9 32.5 RDW 14.0 13.9 14.2 PLT 296 284 269 MPV 9.1 9.4 9.2 Last 3 CMP: Recent Labs 09/27/22 0119 09/27/22 0714 09/27/22 1722 09/28/22 0428 09/29/22 0606 NA 138 < > 137 138 137 K 4.3 < > 4.3 5.0 5.8* CL 110* < > 111* 113* 112* CO2 17* < > 17* 18* 18* BUN 27* < > 30* 28* 30* CREATININE 2.53* < > 2.23* 2.37* 2.57* CALCIUM 7.2* < > 8.3* 8.9 9.3 PROT 7.6 -- -- -- -- BILITOT 0.5 -- -- -- -- ALKPHOS 95 -- -- -- -- AST 18 -- -- -- -- ALT 10 -- -- -- -- < > = values in this interval not displayed. Phosphorus: Recent Labs 09/27/22 1722 09/28/22 0428 09/29/22 0606 PHOS 5.4* 5.4* 5.2* Magnesium: Recent Labs 09/27/22 1722 09/28/22 0428 09/29/22 0606 MG 1.7 1.7 1.4* Albumin: No lab exists for component: LABALBU BNP: No results found for: BNP GALINA: No results found for: GALINA SPEP: Lab Results Component Value Date PROT 7.6 09/27/2022 UPEP: No components found for: LABPE C3: No results found for: C3 C4: No results found for: C4 (more content not included)... Normal [facility] Consult Type and Reason for Visit: Reassess (pt now with worsening renal labs- k 5.8). consult for ONS- Nutrition Recommendations/Plan: per MNT protocol ,will place on low potassium diet and modify Oral nutrition supplements to low K+ ( discontinued Ensure high protein ) . Ensure clear - apple was increased to bid( Ensure Clear provides 240 kcals, 8 g protein per serving.) MONITOR NEED FOR LOW POTASSIUM DIET EDUCATION PRIOR TO DISCHARGE . Please document PO intakes consistently in the flowsheet to better assess intake adequacy. Suggest bowel regimen if Kayexalate, Lokelma not used. Please document PO intakes -diet and ons-consistently in the flowsheet to better assess intake adequacy. Monitor labs, status, intakes,wts to reassess. Follow up at least weekly Malnutrition Assessment: Malnutrition Status: Severe malnutrition Context: Acute Illness Findings of the 6 clinical characteristics of malnutrition: Energy Intake: 50% or less of estimated energy requirements for 5 or more days Weight Loss: (lost 7.7 % in 2 mos but most in last 10 days per pt) Body Fat Loss: Mild body fat loss Orbital Muscle Mass Loss: Moderate muscle mass loss Temples (temporalis), Hand (interosseous) Fluid Accumulation: No significant fluid accumulation Superintendent Strength: Measurable reduction in senior controls analyst strength Normal [facility] Laboratory - Chemistry and C hemistry - challengeOrdered By: Marlene Brown on 09-29-2022 Potassium [Moles/Vol] 4.5 mmol/L 3.5 - 5.1 mmol/L [facility] Laboratory - Chemistry and C hemistry - challengeon 09-29-2022 Magnesium [Mass/Vol] 1.4 mg/dL Low 1.6 - 2 .3 mg/dL [facility] No Panel Informationon 09-29 Interpretation and review of laboratory results Abnormal [facility] Phosphate [Moles/Vol]on Phosphate [Mass/Vol] 5.2 mg/dL High 2.5 - 4 .5 mg/dL [facility] Potassium [Moles/Vol]Ordered By: Marlene Brown on 09-29-2022 Interpretation and review of laboratory results Normal [facility] Progress Noteon 09-29-2022 Progress Note Nutrition Assessment Type and Reason for Visit: Reassess (pt now with worsening renal labs- k 5.8) Nutrition Recommendations/Plan: per MNT protocol ,will place on low potassium diet and modify Oral nutrition supplements to low K+ ( discontinued Ensure high protein ) . Ensure clear - apple was increased to bid( Ensure Clear provides 240 kcals, 8 g protein per serving.) MONITOR NEED FOR LOW POTASSIUM DIET EDUCATION PRIOR TO DISCHARGE . Please document PO intakes consistently in the flowsheet to better assess intake adequacy. Suggest bowel regimen if Kayexalate, Lokelma not used. Please document PO intakes -diet and ons-consistently in the flowsheet to better assess intake adequacy. Monitor labs, status, intakes,wts to reassess. Follow up at least weekly Malnutrition Assessment: Malnutrition Status: Severe malnutrition Context: Acute Illness Findings of the 6 clinical characteristics of malnutrition: Energy Intake: 50% or less of estimated energy requirements for 5 or more days Weight Loss: (lost 7.7 % in 2 mos but most in last 10 days per pt) Body Fat Loss: Mild body fat loss Orbital Muscle Mass Loss: Moderate muscle mass loss Temples (temporalis), Hand (interosseous) Fluid Accumulation: No significant fluid accumulation Superintendent Strength: Measurable reduction in senior controls analyst strength Nutrition Assessment: PER MD-Internal Medicine: MICU CHIEF COMPLAINT Catarina Boyer is a 62 y.o. female presents with chief complaint of Weakness, Gen Diarrhea with NON ANION GAP METABOLIC ACIDOSIS and severe electrolyte abnormalities with severe hypomagenesemia and hypocalcemia initially presented on 09/27/2022, in ICU for 1d 2h.PER MD-Significant Interventions Stable overnight, tolerating diet. Ok for de-escalation to GMF Assessment/Plan Severe electrolyte disturbance, severe hypomagnesemia and hypocalcemia, resolved,iv replacement, hold po magox as causing diarrhea. Discontinue ppi as exacerbates. Nephro follow up, may need prn infusion of mag if not able to tolerate po replacement. Acute Diarrhea illness, pcr negative, supportive care, complicated by NON ANION GAP METABOLIC ACIDOSIS and severe electrolyte disturbances. Discussed precautions and promptevaluation if recurrrence as severe hypomag recurrence can cause elevated morbidity. pt verbalized understanding and agreement Severe hypomagnesemia without cardiac or neuro disturbances Hypothyroidism - resume home synthroid 50 mcg.Chronic gerd , uncontrolled, GI follow up advised with possible endoscopy . Prior EGD and colonoscopy on 10/27/2021. She had a tubular adenoma removed from her cecum. Gastric and GE junction biopsies were negative for H. pylori. 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 Gastric emptying study 11/27 was normal. Mesenteric artery duplex scan 12/14 was unremarkable. Plan : electrolyte correction , hold ppi as may exacerbate , po magox. Nephro follow up. May req OP IV replacement if intolerant to po replacement. Estimated Daily Nutrient Needs: Energy Requirements Based On: Kcal/kg Weight Used for Energy Requirements: [place] Weight for Energy Calculation (kg): 52 kg Total Energy Requirements (kcals/day): 28-32 or 7448-2619 Weight Used for Protein Requirements: [place] Weight in Kg Used for Protein Requirements: 52 kg Estimated Total Protein (g/day): .8-1 or 42-52 Estimated Daily Total Fluid (ml/day): or per md Nutrition Related Findings: pt complaining of headache today- had nausea last night, K 5.8 ,cl 112, bun 30,, gfr 20.8,phos 5.2, hgb 8.7 non pitting ble, / bm Wound Type: None Current Nutrition Therapies: Adult diet Regular; Low Potassium (Less than 3000 mg/day) Current Oral Intake Average Meal Intake: 26-50%, 51-75% Average Supplements Intake: 76-100% (will discontinue Ensure hi protein) Anthropometric Measures: Height: 160 cm (5' 3) Current Body Weight: 104 kg (229 lb 4.8 oz) Weight Source: Standing Scale (09/28) Usual Body Weight: 106 kg (233 lb) % Weight Change (Calculated): -1.6 [place] Body Weight (lbs) (Calculated): 115 lbs [place] Body Weight (Kg) (Calculated): 52 kg % [place] Body Weight (Calculated): 199.4 % BMI (kg/m2) (Calculated): 40.6 BMI Categories: Obese Class 3 (BMI 40.0 or greater) Nutrition Diagnosis: Severe malnutrition, Inadequate protein-energy intake related to inadequate protein-energy intake, early satiety as evidenced by poor intake prior to admission, intake 0-25%, nausea, vomiting, diarrhea, reduced senior controls analyst strength, moderate muscle loss, weight loss (7.7 in 2 mos documented - low po 10 days) Altered nutrition-related lab values related to renal dysfunction as evidenced by lab values (K 5.8) Nutrition Interventions: Nutrition Education/Counseling: No recommendation at this time (monitor need for education) Coordination of Nutrition Care: Continue to monitor while inpatient, Feeding Assistance/Environmen t Change Plan of Care discussed with: pt, MD Goals: Previ (more content not included)... Normal [facility] Basic metabolic 1998 panelon 09-28-2022 Anion gap [Moles/Vol] 7 mmol/L 3 - 13 mmol/L [facility] Calcium [Mass/Vol] 8.9 mg/dL 8.4 - 10. 4 mg/dL [facility] Chloride [Moles/Vol] 113 mmol/L High 98 - 10 7 mmol/L [facility] [employer] CO2 [Moles/Vol] 18 mmol/L Low 22 - 30 mmol/L [facility] Creatinine [Mass/Vol] 2.37 mg/dL High 0.52 - 1.04 mg/dL [facility] GFR/1.73 sq M.predicted MDRD (S/P/Bld) [Vol rate/Area] 22.9 mL/min/{1.73_m2} Low - PINF [facility] Comment on above: Calculation based on the Chronic Kidney Disease Epidemiology Collaboration (CKD-EPI) equation refit without adjustment for race Glucose [Mass/Vol] 103 mg/dL High 70 - 100 mg/dL [facility] Potassium [Moles/Vol] 5.0 mmol/L 3.5 - 5.1 mmol/L [facility] Sodium [Moles/Vol] 138 mmol/L 135 - 145 mmol/L [facility] Urea nitrogen [Mass/Vol] 28 mg/dL High 7 - 17 mg/dL [facility] CBC W Auto Differential pane l (Bld)on 09-28-2022 Basophils (Bld) [#/Vol] 0.1 10*3/uL 0.0 - 0.2 10*3/uL [facility] Basophils/100 WBC (Bld) 0.8 % 0.0 - 2.0 % [facility] Eosinophils (Bld) [#/Vol] 0.1 10*3/uL 0.0 - 0.5 10*3/uL [facility] Eosinophils/100 WBC (Bld) 1.5 % 1.0 - 6.0 % [facility] Erythrocyte distribution width (RBC) [Ratio] 13.9 % 11.5 - 14.5 % [facility] Hematocrit (Bld) [Volume fraction] 27.9 % Low 35.0 - 47.0 % [facility] Hemoglobin (Bld) [Mass/Vol] 9.2 g/dL Low 11.7 - 16.0 g/dL [facility] Interpretation and review of laboratory results Abnormal [facility] Lymphocytes (Bld) [#/Vol] 0.9 10*3/uL Low 1.0 - 4.3 10*3/uL [facility] Lymphocytes/100 WBC (Bld) 13.0 % Low 20.0 - 40.0 % [facility] MCH (RBC) [Entitic mass] 27.6 pg 26.0 - 34.0 pg [facility] MCHC (RBC) [Mass/Vol] 32.9 % 32.0 - 36.0 % [facility] MCV (RBC) [Entitic vol] 83.9 fL 80.0 - 98.0 fL [facility] Monocytes (Bld) [#/Vol] 0.5 10*3/uL 0.0 - 0.8 10*3/uL [facility] Monocytes/100 WBC (Bld) 6.8 % 2.0 - 10.0 % [facility] Neutrophils (Bld) [#/Vol] 5.6 10*3/uL 1.8 - 7.0 10*3/uL [facility] Neutrophils/100 WBC (Bld) 77.9 % 40.0 - 80.0 % [facility] Nucleated RBC/100 WBC (Bld) [Ratio] 0.0 % [facility] Platelet mean volume (Bld) [Entitic vol] 9.4 fL 7.4 - 12.4 fL [facility] Platelets (Bld) [#/Vol] 284 10*3/uL 140 - 440 10*3/uL [facility] RBC (Bld) [#/Vol] 3.32 10*6/uL Low 3.8 - 5.20 10*6/uL [facility] WBC (Bld) [#/Vol] 7.2 10*3/uL 3.6 - 10.7 10*3/uL [facility] Calcium.ionized [Moles/Vol]o n 09-28-2022 Calcium.ionized (Bld) [Moles/Vol] 4.60 mg/dL 4.30 - 5.20 mg/dL [facility] Interpretation and review of laboratory results Normal [facility] PH, IONIZED CALCIUM 7.33 7.31 - 7.46 [facility] ECG 12-LEADon 09-28-2022 ECG 12-LEAD IMPRESSION: SINUS RHYTHM RSR' IN V1 OR V2, RIGHT VCD OR RVH NONSPECIFIC T ABNORMALITIES, LATERAL LEADS Compared to ECG 09/27/2022 02:12:55 Right ventricular hypertrophy now present RSR' in V1 or V2 now present T-wave abnormality still present Electronically Signed On 09-28-2022 11:55:27 EDT by Pradeep Minaya Normal [facility] [employer] [facility] Laboratory - Chemistry and C hemistry - challengeon 09-28-2022 Magnesium [Mass/Vol] 1.7 mg/dL 1.6 - 2 .3 mg/dL [facility] [employer] Magnesium [Mass/Vol]on 09-28 Interpretation and review of laboratory results Normal [facility] [employer] No Panel InformationOrdered By: Pradeep Minaya on 09-28-2022 P [place] 35 degrees [facility] [employer] Work Phone: GA Interval 152 ms [facility] [employer] Work Phone: QRS [place] 23 degrees [facility] [employer] Work Phone: QRSD Interval 90 ms [employer] Work Phone: QT Interval 404 ms [facility] [employer] Work Phone: QTC Interval 430 ms [facility] [employer] Work Phone: T Wave [place] 99 degrees [facility] [employer] Work Phone: [facility] [employer] Work Phone: No Panel Informationon 09-28 SINUS RHYTHM RSR' IN V1 OR V2, RIGHT VCD OR RVH NONSPECIFIC T ABNORMALITIES, LATERAL LEADS Compared to ECG 09/27/2022 02:12:55 Right ventricular hypertrophy now present RSR' in V1 or V2 now present T-wave abnormality still present Electronically Signed On 09-28-2022 11:55:27 EDT by Pradeep Minaya CV Pradeep Lindsey MD - 09/28/2022 IMPRESSION: SINUS RHYTHM RSR' IN V1 OR V2, RIGHT VCD OR RVH NONSPECIFIC T ABNORMALITIES, LATERAL LEADS Compared to ECG 09/27/2022 02:12:55 Right ventricular hypertrophy now present RSR' in V1 or V2 now present T-wave abnormality still present Electronically Signed On 09-28-2022 11:55:27 EDT by Pradeep Minaya [facility] Interpretation and review of laboratory results Abnormal [facility] [employer] [facility] [employer] Phosphate [Moles/Vol]on 06-0 6-2023 Phosphate [Mass/Vol] 5.4 mg/dL High 2.5 - 4 .5 mg/dL [facility] Progress Noteon 09-28-2022 Progress Note Patient in room, Alert and oriented, no SOB, and able to answer all questions. No needs at this time. Normal [facility] Progress Note Physical Therapy Facility/Department: [facility] ICU Physical Therapy Initial Evaluation NAME: Catarina Boyer : 1960 Date of Service: 09/28/2022 Discharge Recommendations: Home with assist PRN ([facility] PT pending patients wishes/needs at discharge) PT Equipment Recommendations Equipment Needed: No Assessment Requires PT Follow-Up: Yes Assessment: Pt presents with decreased functional mobility, decreased strength, decreased safety awareness, decreased endurance and impaired balance. Pt has decreased standing balance requiring 1 person for safety at this time placing her at an increased risk of falling. Pt could benefit from continued PT in order to address her decreased functional mobility, strength, balance and safety. Performance Deficits/Impairments: Decreased functional mobility , Decreased strength, Decreased safe awareness, Decreased endurance, Decreased balance Decision Making: Medium Complexity History: Pt admitted with n/v/d and weakness, found to have electrolyte abnormalities. Exam: AM-PAC Clinical Presentation: Pt admitted with n/v/d and weakness, found to have electrolyte abnormalities. Pt has medical history as indicated below that contributes to her clinical presentation. At baseline patient is functionally independent with no device. Currently patient is SBA with no device and is anticipated to progress with acute therapies and medical management in order to return home with assist and [facility] PT. Activity Tolerance Activity Tolerance: Patient limited by fatigue, Patient limited by endurance Patient Diagnosis(es): The primary encounter diagnosis was Hypomagnesemia. Diagnoses of Diarrhea, unspecified type and Weakness were also pertinent to this visit. has a past medical history of CKD (chronic kidney disease) stage 4, GFR 15-29 ml/min ([facility]), Focal segmental glomerulosclerosis, GERD (gastroesophageal reflux disease), Hyperlipidemia, Hypertension, Hypomagnesemia, and Hypothyroidism. has a past surgical history that includes Laparoscopy diagnostic / biopsy / aspiration / lysis (01/20/2022); Cholecystectomy (01/20/2022); Knee cartilage surgery (Right); and Hysterectomy. Restrictions Restrictions/Precauti ons Restrictions/Precauti ons: General Precautions, Fall Risk Required Braces or Orthoses?: No Vision/Hearing Vision: Within Functional Limits Vision Exceptions: Wears glasses for reading Hearing: Functional/adequate for paticipation in therapy Cognition/Orientation Overall Cognitive Status: WFL Overall Orientation Status: Within Functional Limits Subjective General Chart Reviewed: Yes Patient Assessed for Rehabilitation Services: Yes Family / Caregiver Present: (spouse left during session) General Comment Comments: Per RN patient okay for therapy. Co-eval with OT. Subjective Subjective: Pt pleasant and agreeable to therapy. Patient Stated Goal: Patient states she wants to get home. Pain Assessment Pain Assessment: No/denies pain Social/Functional History Social/Functional History Lives With: Spouse Type of Home: House Home Layout: One level Home Access: Stairs to enter with rails Entrance Stairs - Number of Steps: 2 Bathroom Shower/Tub: Tub/Shower unit Bathroom Toilet: Handicap height Receives Help From: Family ADL Assistance: Independent Homemaking Assistance: Independent Homemaking Responsibilities: Yes Ambulation Assistance: Independent With device?: No Transfer Assistance: Independent Active Foreign Law Consultant: Yes Mode of Transportation: Truck Objective Observation/Palpation Posture: Good Observation: ICU tele, continuous O2 monitoring (SpO2 92-93% on RA) and PIV intact Gross Assessment: Yes AROM: Within functional limits PROM: Within functional limits Strength: Generally decreased, functional Coordination: Within functional limits Tone: Normal Sensation: Intact Bed mobility Supine to Sit: Supervision Sit to Supine: Unable to assess (in chair post-session) Scooting: Supervision Comment: Denies dizziness with positional changes. Supervision for line management. Transfers Sit to Stand: Stand by assistance (to no device from EOB and recliner) Stand to sit: Stand by assistance Comment: Denies dizziness on initial stance. No true LOB or instability. SBA for safety due to weakness and line management. Ambulation Ambulation: Yes Ambulation 1 Surface 1: Level tile Device 1: No device Assistance 1: Standby assistance Quality of Gait Comment 1: Pt demonstrates reciprocal stepping pattern with B foot clearance, no true LOB or instability, occasional path deviations and postural sway, slow richardson Distance (ft) 1: 5 ft x 1, 150 ft x 2 Comments 1: Pt demonstrates stable gait with no device, limited by fatigue. SpO2 WFL throughout on room air. Balance Posture: Good Sitting - Static: Good Sitting - Dynamic: Fair, + Standing - Static: Good Standing - Dynamic: Fair, + P (more content not included)... Normal [facility] Progress Note Occupational Therapy Facility/Department: ICU Occupational Therapy Initial Evaluation NAME: Catarina Boyer : 1960 Date of Service: 09/28/2022 Discharge Recommendations: Home with Home health OT, Home with assist PRN Assessment REQUIRES OT FOLLOW-UP: Yes Performance deficits / Impairments: Decreased functional mobility , Decreased ADL status, Decreased endurance, Decreased balance, Decreased high-level IADLs, Decreased safe awareness Assessment: Prior to admission, pt was independent in ADLs, functional transfers and mobility with no device. Pt now requires SBA for LB ADLs, STS and mobility with no device. Pt is limited by impaired balance and endurance. Pt should benefit from skilled OT services in order to increase safety and independence in occupational participation. Prognosis: Good Decision Making: Medium Complexity History: Pt admitted with n/v/d and weakness, found to have electrolyte abnormalities. PMH is listed above. Exam: [facility] Assistance / Modification: SBA Activity Tolerance Activity Tolerance: Patient limited by fatigue Patient Diagnosis(es): The primary encounter diagnosis was Hypomagnesemia. Diagnoses of Diarrhea, unspecified type and Weakness were also pertinent to this visit. has a past medical history of CKD (chronic kidney disease) stage 4, GFR 15-29 ml/min ([facility]), Focal segmental glomerulosclerosis, GERD (gastroesophageal reflux disease), Hyperlipidemia, Hypertension, Hypomagnesemia, and Hypothyroidism. has a past surgical history that includes Laparoscopy diagnostic / biopsy / aspiration / lysis (01/20/2022); Cholecystectomy (01/20/2022); Knee cartilage surgery (Right); and Hysterectomy. Restrictions Restrictions/Precauti ons Restrictions/Precauti ons: General Precautions, Fall Risk Required Braces or Orthoses?: No Vision/Hearing Vision: Within Functional Limits Vision Exceptions: Wears glasses for reading Hearing: Functional/adequate for paticipation in therapy Cognition/Orientation Overall Cognitive Status: WFL Overall Orientation Status: Within Functional Limits Subjective General Chart Reviewed: Yes Patient Assessed for Rehabilitation Services: Yes Family / Caregiver Present: No Subjective Subjective: Pt pleasant and cooperative. General Comments Comments: Per RN, ok for pt to participate in OT eval. Co-eval with PT as pt admitted with weakness. Patient Stated Goal: To go home. Pain Assessment Pain Assessment: No/denies pain Social/Functional History Social/Functional History Lives With: Spouse Type of Home: House Home Layout: One level Home Access: Stairs to enter with rails Entrance Stairs - Number of Steps: 2 Bathroom Shower/Tub: Tub/Shower unit Bathroom Toilet: Handicap height Receives Help From: Family ADL Assistance: Independent Homemaking Assistance: Independent Homemaking Responsibilities: Yes Ambulation Assistance: Independent With device?: No Transfer Assistance: Independent Active Foreign Law Consultant: Yes Mode of Transportation: Truck Objective Gross Assessment: Yes AROM: Within functional limits PROM: Within functional limits Strength: Within functional limits Coordination: Within functional limits Tone: Normal Sensation: Impaired (numbness/tingling in B feet) Observation/Palpation Posture: Good Observation: ICU tele, continuous O2 monitoring (SpO2 92-93% on RA) and PIV intact Balance Sitting Balance: Independent Standing Balance: Stand by assistance Functional Mobility Functional - Mobility Device: No device Activity: Other Assist Level: Stand by assistance Functional Mobility Comments: Pt ambulated a functional household distance in rodriguez with SBA and no LOB noted. ADL Feeding: Independent Grooming: Modified independent UE Bathing: Modified independent LE Bathing: Stand by assistance UE Dressing: Modified independent LE Dressing: Stand by assistance (Pt donned pants with SBA by flexing forward at hips, required SBA for standing balance when hiking past hips in standing.) Toileting: Modified independent Bed mobility Supine to Sit: Supervision Sit to Supine: Unable to assess (in chair post-session) Scooting: Supervision Comment: SUP for line management during bed mobility. Denied dizziness with changes in positioning. Transfers Sit to stand: Stand by assistance Stand to sit: Stand by assistance Transfer Comments: no device- 2 trials Plan Times per Week: 6 visits Current Treatment Recommendations: Balance Training, Functional Mobility Training, Endurance Training, Safety Education & Training, Self-Care / ADL, Positioning, Equipment Evaluation, Education, & procurement, Patient/Caregiver Education & Training, Home Management Training Plan Comment: POC and goals were made in collaboration with the pt. Safety Safety Devices in place: Yes Type of devices: All fall risk precautions in place, Call light within reach, G (more content not included)... Normal [facility] Progress Note Will assume care upo n transfer out of ICU. D/w Dr Hutchinson by phone. Normal [facility] Vital signsOrdered By: Pradeep Minaya on 09-28-2022 Heart rate 68 /min bpm [facility] [employer] Work Phone: Basic metabolic 1998 panelon 09-27-2022 Anion gap [Moles/Vol] 9 mmol/L 3 - 13 mmol/L [facility] Calcium [Mass/Vol] 8.3 mg/dL Low 8.4 - 10. 4 mg/dL [facility] Chloride [Moles/Vol] 111 mmol/L High 98 - 10 7 mmol/L [facility] CO2 [Moles/Vol] 17 mmol/L Low 22 - 30 mmol/L [facility] Creatinine [Mass/Vol] 2.23 mg/dL High 0.52 - 1.04 mg/dL [facility] GFR/1.73 sq M.predicted MDRD (S/P/Bld) [Vol rate/Area] 24.7 mL/min/{1.73_m2} Low - PINF [facility] Comment on above: Calculation based on the Chronic Kidney Disease Epidemiology Collaboration (CKD-EPI) equation refit without adjustment for race Glucose [Mass/Vol] 96 mg/dL 70 - 100 mg/dL [facility] Potassium [Moles/Vol] 4.3 mmol/L 3.5 - 5.1 mmol/L [facility] Sodium [Moles/Vol] 137 mmol/L 135 - 145 mmol/L [facility] Urea nitrogen [Mass/Vol] 30 mg/dL High 7 - 17 mg/dL [facility] Anion gap [Moles/Vol] 12 mmol/L 3 - 13 mmol/L [facility] Calcium [Mass/Vol] 7.6 mg/dL Low 8.4 - 10. 4 mg/dL [facility] Chloride [Moles/Vol] 111 mmol/L High 98 - 10 7 mmol/L [facility] CO2 [Moles/Vol] 14 mmol/L Low 22 - 30 mmol/L [facility] Creatinine [Mass/Vol] 2.28 mg/dL High 0.52 - 1.04 mg/dL [facility] GFR/1.73 sq M.predicted MDRD (S/P/Bld) [Vol rate/Area] 24.0 mL/min/{1.73_m2} Low - PINF [facility] Comment on above: Calculation based on the Chronic Kidney Disease Epidemiology Collaboration (CKD-EPI) equation refit without adjustment for race Glucose [Mass/Vol] 92 mg/dL 70 - 100 mg/dL [facility] Interpretation and review of laboratory results Abnormal [facility] Potassium [Moles/Vol] 4.0 mmol/L 3.5 - 5.1 mmol/L [facility] Sodium [Moles/Vol] 138 mmol/L 135 - 145 mmol/L [facility] Urea nitrogen [Mass/Vol] 26 mg/dL High 7 - 17 mg/dL [facility]ECOORDon 09-27-2022 [facility] Man[facility] Initial Assessment Date: 09/27/2022 Patient Name: Catarina Boyer : 1960 Patient Information Source of Information: Patient Cognition/Language: WFL - Within Functional Limits Permission given to speak with patient public health representative/[facility] dipesh as indicated: Confirmation of Payer with patient/family: Yes Payer Name: [employer]: No Confirmation of Primary Care Physician: Confirmed PCP Name: Dr Camille Goodman Seen in last 2 years?: Yes Primary Caregiver: Self If assistance needed, confirmed caregiver ready, willing and able to care for patient at discharge: Yes Confirmed with: Donald Living Arrangements Current Residence: House (Ranch with basement) Number of Floors 1 (Does not use basement) Number of Entry Steps: 2 Bed/Bath Levels: Both first floor Facility: Facility Name: Plan to Return: Lives with: Spouse/significant other Support Systems: Spouse/significant other, Family members, Friends/neighbors Activities of Daily Living Ambulation: Independent Bathing/Dressing: Independent Elimination/Continenc e/Toileting: Independent Feeding: Independent Who Assists with Activities of Daily Living: Instrumental Activities of Daily Living Prescription Coverage: Yes [facility]acy Used: [facility] Medication Management: Independent Transportation/Shoppi ng: Independent Transportation Mode: Car Needs Assistance with Transportation at Discharge: No (Donald is able to transport home) Meal Preparation: Laundry/Cleaning: Independent Finances/Bill Paying: Independent Communication: Independent Types of Care Services/Equipment Utilized Care Services: Dialysis Type: Durable Medical Equipment: DME Provider: No DME Patient's Goal/Discharge Plan Patient expects to be discharged to: Home and back to work Discharge Planning Actions: No needs identified Patient's Choice Rights and [employer] and Collaborative Relationships Disclosed as Indicated for Post-Acute Care: Interdisciplinary Team Engagement: Social Work Referral for: Additional Information: Introduced self and role. Patient admitted for hypomagnesia. Patient was independent and working prior to admission. Patient has insurance and prescription coverage, uses the [facility] in [place] for pharmacy. Plan to DC home and back to work. No needs identified. Patient verbalizes understanding and is in agreement with POC. Peggy Smyth RN Normal [facility] CAREPLNon 09-27-2022 CAREPLN Follow up from overnight admission: clinically improved No neuromuscular, weaver dobby loom or cardiac abnormalities. Electrolytes replaced. Ivf discontinue in setting of nagma, renal function stable. Held PO Magnesium as likely exacerbating diarrhea. Advanced diet, electrolytes q12. If stable and tolerating, can de-escalate to GMF in next 12-24 hrs Normal [facility] CBC W Auto Differential pane l (Bld)on 09-27-2022 Basophils (Bld) [#/Vol] 0.1 10*3/uL 0.0 - 0.2 10*3/uL [facility] [facility] Basophils/100 WBC (Bld) 0.8 % 0.0 - 2.0 % [facility] Eosinophils (Bld) [#/Vol] 0.0 10*3/uL 0.0 - 0.5 10*3/uL [facility] Eosinophils/100 WBC (Bld) 0.6 % Low 1.0 - 6.0 % [facility] Erythrocyte distribution width (RBC) [Ratio] 14.0 % 11.5 - 14.5 % [facility] Hematocrit (Bld) [Volume fraction] 28.0 % Low 35.0 - 47.0 % [facility] Hemoglobin (Bld) [Mass/Vol] 9.2 g/dL Low 11.7 - 16.0 g/dL [facility] Interpretation and review of laboratory results Abnormal [facility] Lymphocytes (Bld) [#/Vol] 1.7 10*3/uL 1.0 - 4.3 10*3/uL [facility] Lymphocytes/100 WBC (Bld) 20.6 % 20.0 - 40.0 % [facility] MCH (RBC) [Entitic mass] 27.5 pg 26.0 - 34.0 pg [facility] MCHC (RBC) [Mass/Vol] 32.8 % 32.0 - 36.0 % [facility] MCV (RBC) [Entitic vol] 83.7 fL 80.0 - 98.0 fL [facility] Monocytes (Bld) [#/Vol] 0.5 10*3/uL 0.0 - 0.8 10*3/uL [facility] Monocytes/100 WBC (Bld) 6.2 % 2.0 - 10.0 % [facility] Neutrophils (Bld) [#/Vol] 5.9 10*3/uL 1.8 - 7.0 10*3/uL [facility] Neutrophils/100 WBC (Bld) 71.8 % 40.0 - 80.0 % [facility] Nucleated RBC/100 WBC (Bld) [Ratio] 0.1 % [facility] Platelet mean volume (Bld) [Entitic vol] 9.1 fL 7.4 - 12.4 fL [facility] Platelets (Bld) [#/Vol] 296 10*3/uL 140 - 440 10*3/uL [facility] RBC (Bld) [#/Vol] 3.35 10*6/uL Low 3.8 - 5.20 10*6/uL [facility] WBC (Bld) [#/Vol] 8.1 10*3/uL 3.6 - 10.7 10*3/uL [facility] CBC panel Auto (Bld)Ordered By: Lexie Barreto on 09-27-2022 Erythrocyte distribution width (RBC) [Ratio] 14.0 % 11.5 - 14.5 % [facility] Hematocrit (Bld) [Volume fraction] 33.1 % Low 35.0 - 47.0 % [facility] Hemoglobin (Bld) [Mass/Vol] 10.8 g/dL Low 11.7 - 16.0 g/dL [facility] Interpretation and review of laboratory results Abnormal [facility] MCH (RBC) [Entitic mass] 27.3 pg 26.0 - 34.0 pg [facility] MCHC (RBC) [Mass/Vol] 32.7 % 32.0 - 36.0 % [facility] MCV (RBC) [Entitic vol] 83.4 fL 80.0 - 98.0 fL [facility] [employer] Platelet mean volume (Bld) [Entitic vol] 9.5 fL 7.4 - 12.4 fL [facility] Platelets (Bld) [#/Vol] 348 10*3/uL 140 - 440 10*3/uL [facility] RBC (Bld) [#/Vol] 3.96 10*6/uL 3.8 - 5.20 10*6/uL [facility] WBC (Bld) [#/Vol] 10.2 10*3/uL 3.6 - 10.7 10*3/uL [facility] CT ABDOMEN PELVIS WO IV CONT VIDHITon 09-27-2022 CT ABDOMEN PELVIS WO IV CONTRAST [facility] 1960 [id number] Exam Date/Time: 09/27/2022 01:26 Procedure: CT ABDOMEN PELVIS WO IV CONTRAST Ordering Provider: ARGUETA KRISTEN Reason For Exam: Abdominal pain, acute, nonlocalized CT ABDOMEN AND PELVIS WITHOUT CONTRAST CLINICAL INDICATION: Abdominal pain for one week with fever and chills TECHNIQUE: Transaxial sequence through the abdomen and pelvis without contrast with 3 mm reconstruction. Sagittal coronal reconstruction images included. Dose reduction was employed with automated exposure control. COMPARISON: One year ago FINDINGS: Exam quality: Limited for the evaluation of solid organs due to the lack of intravenous contrast and limited for evaluation of the gastrointestinal tract due to lack of oral contrast. Chest base: Normal. Liver: Normal size and contour. No identifiable lesion. Biliary tree: Normal caliber. Gallbladder surgically absent since the prior examination from one year ago Spleen: Normal. Adrenals: Normal. Pancreas: Unremarkable. Kidneys: Multiple bilateral low-attenuation lesions project in the kidneys including a focus within the left lower pole measuring 6.4 cm. A high attenuation rounded lesion projects from the left lower pole and right upper pole, which are unchanged, likely hemorrhagic cysts. Renal collecting systems: No calculi, hydronephrosis or ureteral dilatation. Free fluid: None. Retroperitoneal/mesen teric lymphadenopathy: None. Aorta: Normal caliber. Bowel: Sigmoid diverticulosis without evidence of acute diverticulitis. No bowel dilatation or free air. Abdominal wall: Normal. Bladder: No calculi or filling defects. Pelvic organs/viscera: No mass identified. Pelvic lymphadenopathy: None. Osseous structures: Normal. IMPRESSION: 1. No acute abnormality identified. 2. Stable renal lesions hyperdense foci, likely hemorrhagic cysts. 3. Sigmoid diverticulosis. Report Dictated on Electronically Signed By: Vijay Luo Electronically Signed Date/Time: 09/27/2022 1:52 AM EDT [facility] CT Abdomen WO contraston 1. No acute abnormality identified. 2. Stable renal lesions hyperdense foci, likely hemorrhagic cysts. 3. Sigmoid diverticulosis. Report Dictated on Electronically Signed By: Vijay Luo Electronically Signed Date/Time: 09/27/2022 1:52 AM EDT [facility] CATAR[facility] 1960 [id number] Exam Date/Time: 09/27/2022 01:26 Procedure: CT ABDOMEN PELVIS WO IV CONTRAST Ordering Provider: ARGUETA KRISTEN Reason For Exam: Abdominal pain, acute, nonlocalized CT ABDOMEN AND PELVIS WITHOUT CONTRAST CLINICAL INDICATION: Abdominal pain for one week with fever and chills TECHNIQUE: Transaxial sequence through the abdomen and pelvis without contrast with 3 mm reconstruction. Sagittal coronal reconstruction images included. Dose reduction was employed with automated exposure control. COMPARISON: One year ago FINDINGS: Exam quality: Limited for the evaluation of solid organs due to the lack of intravenous contrast and limited for evaluation of the gastrointestinal tract due to lack of oral contrast. Chest base: Normal. Liver: Normal size and contour. No identifiable lesion. Biliary tree: Normal caliber. Gallbladder surgically absent since the prior examination from one year ago Spleen: Normal. Adrenals: Normal. Pancreas: Unremarkable. Kidneys: Multiple bilateral low-attenuation lesions project in the kidneys including a focus within the left lower pole measuring 6.4 cm. A high attenuation rounded lesion projects from the left lower pole and right upper pole, which are unchanged, likely hemorrhagic cysts. Renal collecting systems: No calculi, hydronephrosis or ureteral dilatation. Free fluid: None. Retroperitoneal/mesen teric lymphadenopathy: None. Aorta: Normal caliber. Bowel: Sigmoid diverticulosis without evidence of acute diverticulitis. No bowel dilatation or free air. Abdominal wall: Normal. Bladder: No calculi or filling defects. Pelvic organs/viscera: No mass identified. Pelvic lymphadenopathy: None. Osseous structures: Normal. [facility] Vijay Luo MD - 09/27/2022 [facility] Name: CATAR[facility] 1960 [id number] Exam Date/Time: 09/27/2022 01:26 Procedure: CT ABDOMEN PELVIS WO IV CONTRAST Ordering Provider: ARGUETA KRISTEN Reason For Exam: Abdominal pain, acute, nonlocalized CT ABDOMEN AND PELVIS WITHOUT CONTRAST CLINICAL INDICATION: Abdominal pain for one week with fever and chills TECHNIQUE: Transaxial sequence through the abdomen and pelvis without contrast with 3 mm reconstruction. Sagittal coronal reconstruction images included. Dose reduction was employed with automated exposure control. COMPARISON: One year ago FINDINGS: Exam quality: Limited for the evaluation of solid organs due to the lack of intravenous contrast and limited for evaluation of the gastrointestinal tract due to lack of oral contrast. Chest base: Normal. Liver: Normal size and contour. No identifiable lesion. Biliary tree: Normal caliber. Gallbladder surgically absent since the prior examination from one year ago Spleen: Normal. Adrenals: Normal. Pancreas: Unremarkable. Kidneys: Multiple bilateral low-attenuation lesions project in the kidneys including a focus within the left lower pole measuring 6.4 cm. A high attenuation rounded lesion projects from the left lower pole and right upper pole, which are unchanged, likely hemorrhagic cysts. Renal collecting systems: No calculi, hydronephrosis or ureteral dilatation. Free fluid: None. Retroperitoneal/mesen teric lymphadenopathy: None. Aorta: Normal caliber. Bowel: Sigmoid diverticulosis without evidence of acute diverticulitis. No bowel dilatation or free air. Abdominal wall: Normal. Bladder: No calculi or filling defects. Pelvic organs/viscera: No mass identified. Pelvic lymphadenopathy: None. Osseous structures: Normal. IMPRESSION: 1. No acute abnormality identified. 2. Stable renal lesions hyperdense foci, likely hemorrhagic cysts. 3. Sigmoid diverticulosis. Report Dictated on Electronically Signed By: Vijay Luo Electronically Signed Date/Time: 09/27/2022 1:52 AM EDT [facility] Radiology Study observation (narrative) [facility] alth CT Abdomen WO Bharathe d By: Vijay Luo on 09-27-2022 [facility] Work Phone: Calcium.ionized [Moles/Vol]o n 09-27-2022 Calcium.ionized (Bld) [Moles/Vol] 4.50 mg/dL 4.30 - 5.20 mg/dL [facility] Interpretation and review of laboratory results Normal [facility] PH, IONIZED CALCIUM 7.35 7.31 - 7.46 [facility] Calcium.ionized [Moles/Vol]O rdered By: Makenzie Lal on 09-27-2022 Calcium.ionized (Bld) [Moles/Vol] 4.20 mg/dL Low 4.30 - 5.20 mg/dL [facility] Interpretation and review of laboratory results Abnormal [facility] PH, IONIZED CALCIUM 7.31 7.31 - 7.46 [facility] Calcium.ionized [Moles/Vol]O rdered By: Toni Castaneda on 09-27-2022 Calcium.ionized (Bld) [Moles/Vol] 3.60 mg/dL Low 4.30 - 5.20 mg/dL [facility] Interpretation and review of laboratory results Abnormal [facility] PH, IONIZED CALCIUM 7.33 7.31 - 7.46 [facility] Comprehensive metabolic 1998 panelon 09-27-2022 Albumin [Mass/Vol] 4.6 g/dL 3.5 - 5.0 g/dL [facility] ALP [Catalytic activity/Vol] 95 U/L 38 - 126 U/L [facility] ALT [Catalytic activity/Vol] 10 U/L 0 - 34 U/L [facility] Anion gap [Moles/Vol] 12 mmol/L 3 - 13 mmol/L [facility] AST [Catalytic activity/Vol] 18 U/L 15 - 46 U/L [facility] Bilirubin [Mass/Vol] 0.5 mg/dL 0.2 - 1 .3 mg/dL [facility] Calcium [Mass/Vol] 7.2 mg/dL Low 8.4 - 10. 4 mg/dL [facility] Chloride [Moles/Vol] 110 mmol/L High 98 - 10 7 mmol/L [facility] CO2 [Moles/Vol] 17 mmol/L Low 22 - 30 mmol/L [facility] Creatinine [Mass/Vol] 2.53 mg/dL High 0.52 - 1.04 mg/dL [facility] GFR/1.73 sq M.predicted MDRD (S/P/Bld) [Vol rate/Area] 21.2 mL/min/{1.73_m2} Low - PINF [facility] Comment on above: Calculation based on the Chronic Kidney Disease Epidemiology Collaboration (CKD-EPI) equation refit without adjustment for race Glucose [Mass/Vol] 114 mg/dL High 70 - 100 mg/dL [facility] Interpretation and review of laboratory results Abnormal [facility] Potassium [Moles/Vol] 4.3 mmol/L 3.5 - 5.1 mmol/L [facility] Protein [Mass/Vol] 7.6 g/dL 6.3 - 8.2 g/dL [facility] Sodium [Moles/Vol] 138 mmol/L 135 - 145 mmol/L [facility] Urea nitrogen [Mass/Vol] 27 mg/dL High 7 - 17 mg/dL [facility] Consulton 09-27-2022 Consult Type and Reason for Visit: Initial, Positive Nutrition Screen, Consult (poor po prior to adm) Nutrition Recommendations/Plan: Suggest to continue a regular diet as tolerated to promote intake- patient states no appetite . Reluctant to try oral nutrition supplements - did agree to apple Ensure clear(Ensure Clear provides 240 kcals, 8 g protein per serving) and Ensure high protein bid( 160 palmira, 16 gm pro/serving). Wants to try cheeseburger for lunch. Can select her own meals, Please document PO intakes-diet and ONS consistently in the flowsheet to better assess intake adequacy. May benefit from mvi Monitor labs, status, intakes,wts to reassess. Follow up at least weekly Malnutrition Assessment: Malnutrition Status: Severe malnutrition Context: Acute Illness Findings of the 6 clinical characteristics of malnutrition: Energy Intake: 50% or less of estimated energy requirements for 5 or more days Weight Loss: (lost 7.7 % in 2 mos but most in last 10 days per pt) Body Fat Loss: Mild body fat loss Orbital Muscle Mass Loss: Moderate muscle mass loss Temples (temporalis), Hand (interosseous) Fluid Accumulation: No significant fluid accumulation Superintendent Strength: Measurable reduction in senior controls analyst strength Normal [facility] ED Nursing Noteon 09-27-2022 ED Nursing Note Pt is actively shaking and vomiting. Adia Glez RN 09/27/22 0059 [facility] ED Nursing Note Bed: 13 Expected date: 09/27/22 Expected time: Means of arrival: Comments: Triage B Jessi Thurman RN 09/27/22 0156 Normal [facility] ED Nursing Note Pt presented to ED with complaints of nausea, vomiting, diarrhea, shakiness and generalized weakness. Pt states she has been sick for about a week and is not getting better. Pt is unable to keep food or drink down. Pt has had a fever and chills as well. Normal [facility] ED Provider Noteon ED Provider Note EMERGENCY DEPARTMENT ENCOUNTER Pt Name: Catarina Boyer Birthdate 1960 Date of evaluation: 09/27/2022 ED Provider: Iman Argueta DO CHIEF COMPLAINT Chief Complaint Patient presents with Weakness, Gen HISTORY OF PRESENT ILLNESS (Location/Symptom, Timing/Onset, Context/Setting, Quality, Duration, Modifying Factors, Severity) Note limiting factors. I wore appropriate PPE for the entirety of this encounter. HPI Catarina Boyer is a 62 y.o. female who presents to the emergency department with chief complaint of nausea, emesis, diarrhea. Patient reports nausea, dry heaves, emesis, diarrhea, abdominal cramping for the past week. Patient reports progressive fatigue, dyspnea, chills, tremors. Patient reports abdominal cramping is epigastric in nature, denies any radiation of her pain. Patient reports she has been unable to keep anything down by mouth. Patient reports frequent loose bowel movements, without hematochezia or melena. Patient denies any known sick contacts at home, has been off of work on vacation for the past week. Patient denies any travel. Denies any dysuria, urinary frequency, urinary urgency, hematochezia or melena. Patient reports history of hypomagnesemia, however has been unable to keep down any of her magnesium supplementation this week. Reports she has been unable to keep down her blood pressure medications other chronic medications either. Nursing Notes were reviewed. Limitations to history: None Outside historians: None REVIEW OF SYSTEMS Review of Systems PAST MEDICAL HISTORY Past Medical History: Diagnosis Date CKD (chronic kidney disease) stage 4, GFR 15-29 ml/min ([facility]) Follows with Dr. Moreno Focal segmental glomerulosclerosis GERD (gastroesophageal reflux disease) Hyperlipidemia Hypertension Hypomagnesemia Hypothyroidism SURGICAL HISTORY Past Surgical History: Procedure Laterality Date CHOLECYSTECTOMY 01/20/2022 HYSTERECTOMY KNEE CARTILAGE SURGERY Right LAPAROSCOPY DIAGNOSTIC / BIOPSY / ASPIRATION / LYSIS 01/20/2022 cholecystectomy CURRENT MEDICATIONS Previous Medications ONDANSETRON (ZOFRAN) 4 MG TABLET TAKE 1 TABLET BY MOUTH DAILY NEEDED FOR NAUSEA OR VOMITING POLYETHYLENE GLYCOL, PEG, 3350 (GLYCOLAX) 17 GM/SCOOP POWDER TAKE 17 G BY MOUTH DAILY NEEDED (CONSTIPATION) ALLERGIES Codeine, Moxifloxacin, Penicillins, Hydromorphone, Morphine, and Oxycodone-acetaminoph en FAMILY HISTORY Family History Problem Relation Name Age of Onset Heart disease Mother Diabetes Father SOCIAL HISTORY Social History Socioeconomic History Marital status: Tobacco Use Smoking status: Every Day Packs/day: 0.50 Years: 40.00 Pack years: 20.00 Types: Cigarettes Smokeless tobacco: Never Vaping Use Vaping Use: Never used Substance and Sexual Activity Alcohol use: No Drug use: Never SCREENINGS PHYSICAL EXAM ED Triage Vitals [09/27/22 0030] Temp Heart Rate Resp BP 36.7 ?C (98 ?F) 85 16 (!) 149/95 SpO2 Temp Source Heart Rate Source Patient Position 97 % Temporal Monitor -- BP Location FiO2 (%) -- -- GENERAL APPEARANCE: Awake and alert. Cooperative. Appears unwell. HEAD: Normocephalic. Atraumatic. EYES: EOM's grossly intact. Sclera anicteric. ENT: Mucous membranes are tacky. Tolerates saliva. No trismus. NECK: Supple. No meningismus. Trachea midline. HEART: RRR. Radial pulses 2+. LUNGS: Respirations unlabored. CTAB ABDOMEN: Soft. Minimally tender to palpation in epigastrium without guarding, rigidity or rebound. EXTREMITIES: No acute deformities. SKIN: Warm and dry. NEUROLOGICAL: No gross facial drooping. Moves all 4 extremities spontaneously. DTRs appropriate. Muscular strength 5/5 all extremities. PSYCHIATRIC: Normal mood. DIAGNOSTIC RESULTS Procedures/EKG: EKG was reviewed by myself. Physician EKG interpretation can be found in [facility] RADIOLOGY (Per Emergency Physician): Interpretation per the Radiologist below, if available at the time of this note: CT abdomen pelvis wo IV contrast Final Result 1. No acute abnormality identified. 2. Stable renal lesions hyperdense foci, likely hemorrhagic cysts. 3. Sigmoid diverticulosis. Report Dictated on Electronically Signed By: Vijay Luo Electronically Signed Date/Time: 09/27/2022 1:52 AM EDT ED BEDSIDE ULTRASOUND: Performed by ED Physician - none LABS: Labs Reviewed CBC (HEMOGRAM) - Abnormal Result Value Auto WBC 10.2 RBC 3.96 Hemoglobin 10.8 (*) Hematocrit 33.1 (*) MCV 83.4 MCH 27.3 MCHC 32.7 RDW 14.0 Platelets 348 MPV 9.5 COMPREHENSIVE METABOLIC PANEL - Abnormal SODIUM 138 POTASSIUM 4.3 CHLORIDE 110 (*) CARBON DIOXIDE 17 (*) ANION GAP 12 UREA NITROGEN 27 (*) CREATININE 2.53 (*) GLUCOSE 114 (*) CALCIUM 7.2 (*) AST (SGOT) 18 ALT 10 ALKALINE PHOSPHATASE 95 ALBUMIN 4.6 BILIRUBIN, TOTAL 0.5 TOTAL PROTEIN 7.6 eGFR 21 (more content not included)... Normal [facility] Gastrointestinal pathogens p alejandra MINDY+probe (Stl)Ordered By: Mary Jo Holloway on 09-27-2022 Adenovirus F 40/41 Not detected Not Detected [facility] Astrovirus Not detected Not Detected [facility] Campylobacter Not detected Not Detected [facility] Cryptosporidium Not detected Not Detected [facility] Cyclospora cayetanensis Not detected Not Detect ed [facility] Entamoeba histolytica Not detected Not Detected [facility] Enterotoxigenic E coli (ETEC) Not detected Not Detected [facility] Giardia lamblia Not detected Not Detected [facility] Interpretation and review of laboratory results Normal [facility] Norovirus GI/GII Not detected Not Detected [facility] Plesiomonas shigelloides Not detected Not Detected [facility] Rotavirus A Not detected [facility] Sal[facility] Not detected Not Detected [facility] Sapovirus Not detected Not Detected [facility] Shiga toxin-producing E coli (STEC) Not detected Not Detected [facility] Shigella/Enteroinvasive E coli (EIEC) Not detected Not Detected [facility] Vibrio cholerae Not detected Not Detected [facility] Vibrio species Not detected Not Detected [facility] Yersinia enterocolitica Not detected Not Detect ed [facility] Methodology: Multiplex PCR [facility] Hepatitis 1996 panel (S)on 0 09-27-2022 HAV IgM IA Ql Not detected Not Detected [facility] HBV core IgM IA Ql Not detected Not Detected [facility] HBV surface Ag IA Ql Not detected Not Detected [facility] HCV Ab IA Ql Not detected Not Detected [facility] Comment on above: Patients with DETECT ED Hepatitis C Ab results should have a new specimen submitted for supplemental testing with a Hepatitis C Quantitative RNA assay (viral load), if clinically indicated. Interpretation and review of laboratory results Normal [facility] Laboratory - Chemistry and C hemistry - challengeon 09-27-2022 Magnesium [Mass/Vol] 1.7 mg/dL 1.6 - 2 .3 mg/dL [facility] Magnesium [Mass/Vol] 1.6 mg/dL 1.6 - 2 .3 mg/dL [facility] TSH Qn 1.965 m[IU]/L [facility] Lactate [Moles/Vol] 0.8 mmol/L 0.7 - 2. 0 mmol/L [facility] Magnesium [Mass/Vol] mg/dL Critically low 1.6 - 2.3 mg/dL [facility] Lipase [Catalytic activity/Vol] 186 U/L 23 - 300 U/L [facility] [facility] Laboratory - Microbiology an d Antimicrobial susceptibilityon 09-27-2022 FLUAV RNA MINDY+probe Ql (Resp) Not detected Not Detected [facility] FLUBV RNA MINDY+probe Ql (Resp) Not detected Not Detected [facility] RSV RNA MINDY+probe Ql (Resp) Not detected Not Detected [facility] SARS-CoV-2 (COVID-19) RNA MINDY+probe Ql (Resp) Not detected Not Detected [facility]th SARS-CoV-2 (COVID-19) RNA MINDY+probe Ql (Unsp spec) Methodology: real-time, RT-PCR The SARS-CoV-2, Flu A/B, and RSV Combo assay is intended for in vitro diagnostic use under the FDA Emergency Use Authorization (EUA). This test has not been FDA cleared or approved. In compliance with this authorization, please visit www.fda.gov/media/345 759/download or www.fda.gov/media/142 436/download to access the applicable information sheets. [facility] [employer] Lipase [Catalytic activity/V ol]on 09-27-2022 Interpretation and review of laboratory results Normal [facility] [employer] Magnesium [Mass/Vol]on 09-27 Interpretation and review of laboratory results Normal [facility] [employer] Interpretation and review of laboratory results Abnormal [facility] [employer] No Panel Informationon 09-27 Interpretation and review of laboratory results Abnormal [facility] Stoney Maurice MD - 09/27/2022 IMPRESSION: Sinus rhythm Abnormal R-wave progression, early transition Nonspecific T abnormalities, lateral leads Compared to ECG 10/01/2021 15:33:29 T-wave abnormality now present Electronically Signed On 09-27-2022 14:44:39 EDT by Stoney Grimmowell [facility] Interpretation and review of laboratory results Normal [facility] [employer] Interpretation and review of laboratory results Normal [facility] [employer] No Panel InformationOrdered By: Stoney Maurice on 09-27-2022 P [place] 28 degrees [facility] [employer] Work Phone: GA Interval 136 ms [facility] [employer] Work Phone: QRS [place] 7 degrees [facility] [employer] Work Phone: QRSD Interval 90 ms [facility] [employer] Work Phone: QT Interval 387 ms [facility] [employer] Work Phone: QTC Interval 413 ms [facility] [employer] Work Phone: T Wave [place] 98 degrees [facility] [employer] Work Phone: [facility] [employer] Work Phone: Phosphate [Moles/Vol]on Phosphate [Mass/Vol] 5.4 mg/dL High 2.5 - 4 .5 mg/dL [facility] [employer] Phosphate [Mass/Vol] 4.4 mg/dL 2.5 - 4 .5 mg/dL [facility] Interpretation and review of laboratory results Normal [facility] Phosphate [Mass/Vol] 4.3 mg/dL 2.5 - 4 .5 mg/dL [facility] [employer] Progress Noteon 09-27-2022 Progress Note Nutrition Assessment Type and Reason for Visit: Initial, Positive Nutrition Screen, Consult (poor po prior to adm) Nutrition Recommendations/Plan: Suggest to continue a regular diet as tolerated to promote intake- patient states no appetite . Reluctant to try oral nutrition supplements - did agree to apple Ensure clear(Ensure Clear provides 240 kcals, 8 g protein per serving) and Ensure high protein bid( 160 palmira, 16 gm pro/serving). Wants to try cheeseburger for lunch. Can select her own meals, Please document PO intakes-diet and ONS consistently in the flowsheet to better assess intake adequacy. May benefit from mvi Monitor labs, status, intakes,wts to reassess. Follow up at least weekly Malnutrition Assessment: Malnutrition Status: Severe malnutrition Context: Acute Illness Findings of the 6 clinical characteristics of malnutrition: Energy Intake: 50% or less of estimated energy requirements for 5 or more days Weight Loss: (lost 7.7 % in 2 mos but most in last 10 days per pt) Body Fat Loss: Mild body fat loss Orbital Muscle Mass Loss: Moderate muscle mass loss Temples (temporalis), Hand (interosseous) Fluid Accumulation: No significant fluid accumulation Superintendent Strength: Measurable reduction in senior controls analyst strength Nutrition Assessment: PER AIRPORT 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 Since this time she reports poor p.o. intake, decreased activity, fatigue, chills, dizziness, some palpitations, abdominal cramping that is slightly superior to the umbilicus region rated 5 out of 10 and nonradiating. She is attempted to treat this with crackers and hunter fabrice which have only made symptoms worse. She denies sick contacts or travel. Work-up in the ER shows a NAGMA, creatinine of 2.5 which appears near baseline, ionized calcium of 3.6 and magnesium of less than 0.2. No leukocytosis, normal lactate. CT of the abdomen pelvis with no acute process. Patient was treated with calcium and magnesium in the ER.Assessment 1. N/V/D 2. Hypomagnesemia 3. Hypocalcemia 4. NAGMA 5. Hx CKD stage 4 6. Hx HTN/HPL 7. Hx Anemia 8. Tobacco abuse Plan 1. No clear cause of nausea vomiting diarrhea. Patient denies any coffee-ground emesis or hematemesis or hematochezia. No recent travel no recent sick exposures. 2. Check acute hepatitis panel and GI PCR. 3. There is no EKG changes, no seizures no neuro changes. 4. Patient with chronic hypomagnesemia secondary to CKD on oral replacement. Has not taken oral replacement recently. Now believe acute hypomagnesemia is related to GI losses. Will resume home oral replacement as she tolerates. Given 4 g of mag in the ER. Replace based on future labs. 5. Hypocalcemia likely related to hypomagnesemia. Patient given 1 g of calcium gluconate, given additional 3 g now. Replace based on future labs 6. Cycle BMP, mag, Phos, ionized calcium every 6 hours. 7. Neurochecks 8. Seizure precautions 9. Repeat twelve-lead EKG at noon 10. NAGMA likely secondary to GI losses. Will treat with LR at this time. BMP as above 11. Hold home Norvasc 12. Hemoglobin appears at baseline. 13. Cessation counseling discussed with patient, declines nicotine patch at present. Estimated Daily Nutrient Needs: Energy Requirements Based On: Kcal/kg Weight Used for Energy Requirements: [place] Weight for Energy Calculation (kg): 52 kg Total Energy Requirements (kcals/day): 28-32 or 5848-3509 Weight Used for Protein Requirements: [place] Weight in Kg Used for Protein Requirements: 52 kg Estimated Total Protein (g/day): .8-1 or 42-52 Estimated Daily Total Fluid (ml/day): or per md Nutrition Related Findings: weak senior controls analyst -NO APPETITE,nausea resolved with phenergan, ca 4.2, bun 26, creat 2.28,hgb 9.2, ca 7.6, 6/5 bm., no edema. on mag, nystatin-FEARFUL OF EATING Wound Type: None Current Nutrition Therapies: Adult diet Regular Current Oral Intake Average Meal Intake: 0% Average Supplements Intake: None Ordered (RD will initiate) Anthropometric Measures: Height: 160 cm (5' 3) Current Body Weight: 97.5 kg (215 lb) (09/26 home scale) Weight Source: Standing Scale Usual Body Weight: 106 kg (233 lb) (07/21/22) % Weight Change (Calculated): -7.7 [place] Body Weight (lbs) (Calculated): 115 lbs [place] Body Weight (Kg) (Calculated): 52 kg % [place] Body Weight (Calculated): 187 % BMI (kg/m2) (Calculated): 38.1 BMI Categories: Obese Class 2 (BMI 35.0 -39.9) Nutrition Diagnosis: Severe malnutrition, Inadequate protein-energy intake related to inadequate protein-energy intake, early satiety as evidenced by poor intake prior to admission, intake 0-25%, nausea, vomiting, diarrhea, reduced senior controls analyst strength, moderate muscle loss, weight loss (7.7 in 2 mos documented - low po 10 days) Alte (more content not included)... Normal [facility] Respiratory pathogens DNA an d RNA panel MINDY+probe (Nph)on 09-27-2022 Adenovirus Not detected Not Detected [facility] B. pertussis DNA MINDY+probe Ql (Unsp spec) Not detected Not Detected [facility] Bordetella parapertussis Not detected Not Detected [facility] Chlamydia pneumoniae Not detected Not Detected [facility] Coronavirus 229E Not detected Not Detected [facility] Coronavirus HKU1 Not detected Not Detected [facility] Coronavirus NL63 Not detected Not Detected [facility] Coronavirus OC43 Not detected Not Detected [facility] FLUAV RNA MINDY+non-probe Ql (Nph) Not detected Not Detected [facility] FLUBV RNA MINDY+non-probe Ql (Nph) Not detected Not Detected [facility] Human Metapneumovirus Not detected Not Detected [facility] Human Rhinovirus/Enterovirus Not detected Not Detected [facility] Interpretation and review of laboratory results Normal [facility] Mycoplasma pneumoniae Not detected Not Detected [facility] Parainfluenza 1 Not detected Not Detected [facility] Parainfluenza 2 Not detected Not Detected [facility] Parainfluenza 3 Not detected Not Detected [facility] Parainfluenza 4 Not detected Not Detected [facility] Respiratory Syncytial Virus Not detected Not Detected [facility] SARS-CoV-2 (COVID-19) RNA MINDY+non-probe Ql (Nph) Not detected Not Detected [facility] Methodology: Multiplex PCR [facility] SARS-CoV-2, Flu A/B, and RSV Comboon 09-27-2022 Interpretation and review of laboratory results Normal [facility] TSH Qnon 09-27-2022 Interpretation and review of laboratory results Normal [facility] [employer] Vital signsOrdered By: Stoney Maurice on 09-27-2022 Heart rate 68 /min bpm [employer] Work Phone: Op Noteon 01-20-2022 Op Note OPERATIVE NOTE Patient Name: Catarina Boyer : 1960 DATE OF PROCEDURE: 01/20/22 SURGEON: Saloni Hussein MD / Joanie Sanon MD PREOPERATIVE DIAGNOSES: Symptomatic cholelithiasis. POSTOPERATIVE DIAGNOSES: Same. PROCEDURE: Laparoscopic cholecystectomy. ANESTHESIA: General. ESTIMATED BLOOD LOSS: Minimal. WOUND CLASSIFICATION: Class I - Clean INDICATION FOR PROCEDURE: This 61-year-old female has a several month history of progressively worsening upper abdominal symptoms consistent with biliary colic. Imaging shows gallbladder sludge versus gravel. Work-up by the GI service has otherwise been nonrevealing. DESCRIPTION OF PROCEDURE: With the patient on the OR table in the supine position, and under satisfactory general endotracheal anesthesia, the abdomen was properly prepared and draped in usual sterile fashion. Abdominal exam under anesthesia was unremarkable. An umbilical skin incision was made and a veress needle inserted into the peritoneal cavity. A pneumoperitoneum was established with CO2 insufflation to a pressure of 15 mmHg. The Veress needle was exchanged for a bladeless 10 mm optical trocar through which the video laparoscope was inserted. Initial exploration of the abdominal cavity was unremarkable. Two 5 mm trochars were placed in the right lateral subcostal region and a second 10 mmtrocar placed within the subxiphoid region. The gallbladder was grasped and retracted over the edge of the liver. The peritoneum of the hepatoduodenal ligament was incised and the cystic duct with cystic artery isolated with critical views. Both structures were doubly ligated on the stay side with Hem-o-urban clips, then once distally, and divided. The gallbladder was then dissected free from its bed using electrocautery and placed in an Endopouch. The gallbladder was retrieved via the subxiphoid trocar site. The subhepatic space was irrigated and hemostasis ensured. Trochars were removed under direct visualization and the pneumoperitoneum reversed. Fascia at the 10 mm trocar sites was closed with 0 Vicryl. Skin incisions were closed with 4 Monocryl and Steri-Strips. Sterile dressings were applied and the patient was taken the recovery room in satisfactory condition. Normal [facility] Surgical Pathologyon 022 Surgical Pathology [id number] [facility] PATHOLOGY AND LABORATORY MEDICINE [address] [place] [id number] FINAL SURGICAL PATHOLOGY REPORT NAME: CATARINA BOYER [id number] : 1960 61 Y F [facility] NO[facility] [id number] LOCATION: [place] [address] PROCEDURE 01/20/2022 DATE: SURGEON: SALONI HUSSEIN M.D. RECEIVED 01/21/2022 DATE: ATTENDING: SALONI HUSSEIN M.D. REPORT DATE: 01/25/2022 COPIES TO: DIAGNOSIS: GALLBLADDER, CHOLECYSTECTOMY - CHRONIC CHOLECYSTITIS WITH CHOLESTEROLOSIS. GAEL/GAEL Signature> CARLEY BOBBY M.D. CLINICAL INFORMATION: Chronic cholecystitis SPECIMEN: GALLBLADDER GROSS DESCRIPTION: Received in formalin labeled gallbladder is a previously opened gallbladder measuring 6 x 3 x 1 cm. The serosal surface is pink-enriquez to yellow-moreno. Upon transection of the specimen, the lumen contains thick mucoid bile. The mucosa is greenish-brown bile-stained with focal yellow streaks. The wall of the gallbladder averages 0.3 cm in thickness and contains no nodules. No calculi are identified within the cystic duct, gallbladder, or within the container. Core Inserter sections are submitted in a single cassette. [id number]/[id number] Disclaimer: The following statement applies to all immunohistochemistry, in situ hybridization, molecular studies, and immunofluorescence testing. The use of one or more reagents in the above tests is regulated as an analyte specific reagent (ASR). These tests were developed and their performance characteristics determined by the clinical laboratories of [facility]. They have not been cleared by the US Food and Drug Administration (FDA). The FDA has determined that such clearance or approval is not necessary. All the above immunostains were performed on paraffin embedded tissue. Appropriate positive and negative controls (where applicable) were run in parallel with the patient's specimen; these controls showed expected staining pattern, with acceptable intensity of staining. Immunohistochemical assays have not been validated on decalcified tissues. Results should be interpreted with caution given the raised possibility of false negativity on decalcified specimens. Professional Performing Location: [place] [address]. DEPARTMENT OF PATHOLOGY AND LABORATORY MEDICINE [place], [place] [address] [email or web address] Normal [facility] VL Mesenteric Artery Duplex Scanon 12-14-2021 [facility] -------- Mesenteric Artery Duplex Report Patient Merlin : 1960 Study 12/14/2021 Name: Catarina Bear (61yrs) Date: Patient [id number] Age: 61 Account: [id number] ID: Gender: F Loc: BP: Ordering Physician: Gloria Solomon Erp Developer: Jose Hopkins T Interpreting Physician: Quinton Morrow MD -------- Location: [facility] -------- Indications: LUQ and abdominal pian. -------- Conclusions Study is negative for stenosis involving the celiac artery, hepatic artery, splenic artery, superior mesenteric artery, and inferior mesenteric arteries. -------- History: Risk factors: Current tobacco use. Hypertension. Hyperlipidemia. -------- Study data: Mesenteric arterial duplex. Duplex scan, grayscale 2D imaging, color Doppler imaging, and spectral Doppler analysis. Location: Vascular laboratory. Objective: Diagnostic evaluation. Procedure: A vascular evaluation was performed with the patient in the supine position. Images were obtained using a [employer] vascular ultrasound machine. The abdominal aorta and the celiac, superior mesenteric, and inferior mesenteric arteries were studied. The study was technically limited due to bowel gas, patient confirmed NPO. -------- Arterial flow: + ---+ +---- -------+ -------+ +Location +Diameter +PSV(cm/sec)+Comment + + +AP + + + + ---+ +---- -------+ -------+ +Suprarenal aorta , prox+2.59 cm +50 + + + ---+ +---- -------+ -------+ +Celiac with inspiration+--------- ---+114 + + + ---+ +---- -------+ -------+ +Celiac , prox + +129 + + + ---+ +---- -------+ -------+ +Common hepatic , prox + +144 + + + ---+ +---- -------+ -------+ +Splenic , prox + +144 + + + ---+ +---- -------+ -------+ +Superior mesenteric , + +137 + + +origin + + + + + ---+ +---- -------+ -------+ +Superior mesenteric , + +122 + + +prox + + + + + ---+ +---- -------+ -------+ +Superior mesenteric , + +141 + + +mid + + + + + ---+ +---- -------+ -------+ +Inferior mesenteric + +------- ----+Not vis due to bowel+ + + + +gas. + + ---+ +---- -------+ -------+ Prepared and electronically signed by Quinton Morrow MD 12/14/2021 19:32 [facility] Quinton Morrow MD - 12/14/2021 [facility] -------- Mesenteric Artery Duplex Report Patient DO MerlinB: 1960 Study 12/14/2021 Name: Catarina Bear (61yrs) Date: Patient [id number] Age: 61 Account: [id number] ID: Gender: F Loc: BP: Ordering Physician: Gloria Solomon Erp Developer: Jose Hopkins T Interpreting Physician: Quinton Morrow MD -------- Location: [facility] -------- Indications: LUQ and abdominal pian. -------- Conclusions Study is negative for stenosis involving the celiac artery, hepatic artery, splenic artery, superior mesenteric artery, and inferior mesenteric arteries. -------- History: Risk factors: Current tobacco use. Hypertension. Hyperlipidemia. -------- Study data: Mesenteric arterial duplex. Duplex scan, grayscale 2D imaging, color Doppler imaging, and spectral Doppler analysis. Location: Vascular laboratory. Objective: Diagnostic evaluation. Procedure: A vascular evaluation was performed with the patient in the supine position. Images were obtained using a [employer] vascular ultrasound machine. The abdominal aorta and the celiac, superior mesenteric, and inferior mesenteric arteries were studied. The study was technically limited due to bowel gas, patient confirmed NPO. -------- Arterial flow: + ---+ +---- -------+ -------+ +Location +Diameter +PSV(cm/sec)+Comment + + +AP + + + + ---+ +---- -------+ -------+ +Suprarenal aorta , prox+2.59 cm +50 + + + ---+ +---- -------+ -------+ +Celiac with inspiration+--------- ---+114 + + + ---+ +---- -------+ -------+ +Celiac , prox + +129 + + + ---+ +---- -------+ -------+ +Common hepatic , prox + +144 + + + ---+ +---- -------+ -------+ +Splenic , prox + +144 + + + ---+ +---- -------+ -------+ +Superior mesenteric , + +137 + + +origin + + + + + ---+ +---- -------+ -------+ +Superior mesenteric , + +122 + + +prox + + + + + ---+ +---- -------+ -------+ +Superior mesenteric , + +141 + + +mid + + + + + ---+ +---- -------+ -------+ +Inferior mesenteric + +------- ----+Not vis due to bowel+ + + + +gas. + + ---+ +---- -------+ -------+ Prepared and electronically signed by Quinton Morrow MD 12/14/2021 19:32 [employer] Work Phone: Radiology Study observation (narrative) [employer] Work Phone: VL Mesenteric Artery Duplex ScanOrdered By: Quinton Morrow on 12-14-2021 [facility]: VL Mesenteric Duplexon 12-14 VL Mesenteric Duplex Patient Name: CATARINA AGUILAR Ultrasound ACCESSION EXAM DATE/TIME PROCEDURE ORDERING PROVIDER [id number] 12/14/2021 10:41 EDT VL Mesenteric Duplex QING SOLOMONCNP-GLORIA GRIMM CPT code 18091 Reason For Exam (VL Mesenteric Duplex) epigastric and LUQ abdominal pain Report [facility] -------- Mesenteric Artery Duplex Report Patient DO MerlinB: 1960 Study 12/14/2021 Name: Catarina Bear (61yrs) Date: Patient [id number] Age: 61 Account: [id number] ID: Gender: F Loc: BP: Ordering Physician: Gloria Solomon Erp Developer: Jose Hopkins T Interpreting Physician: Quinton Morrow MD -------- Location: [facility] -------- Indications: LUQ and abdominal pian. -------- Conclusions Study is negative for stenosis involving the celiac artery, hepatic artery, splenic artery, superior mesenteric artery, and inferior mesenteric arteries. -------- History: Risk factors: Current tobacco use. Hypertension. Hyperlipidemia. -------- Study data: Mesenteric arterial duplex. Duplex scan, grayscale 2D imaging, color Doppler imaging, and spectral Doppler analysis. Location: Vascular laboratory. Objective: Diagnostic evaluation. Procedure: A vascular evaluation was performed with the patient in the supine position. Images were obtained using a [employer] vascular ultrasound machine. The abdominal aorta and the celiac, superior mesenteric, and inferior mesenteric arteries were studied. The study Ultrasound Report was technically limited due to bowel gas, patient confirmed NPO. -------- Arterial flow: + ---+ +---- -------+ -------+ +Location +Diameter +PSV(cm/sec)+Comment + + +AP + + + + ---+ +---- -------+ -------+ +Suprarenal aorta , prox+2.59 cm +50 + + + ---+ +---- -------+ -------+ +Celiac with inspiration+--------- ---+114 + + + ---+ +---- -------+ -------+ +Celiac , prox + +129 + + + ---+ +---- -------+ -------+ +Common hepatic , prox + +144 + + + ---+ +---- -------+ -------+ +Splenic , prox + +144 + + + ---+ +---- -------+ -------+ +Superior mesenteric , + +137 + + +origin + + + + + ---+ +---- -------+ -------+ +Superior mesenteric , + +122 + + +prox + + + + + ---+ +---- -------+ -------+ +Superior mesenteric , + +141 + + +mid + + + + + ---+ +---- -------+ -------+ +Inferior mesenteric + +------- ----+Not vis due to bowel+ + + + +gas. + + ---+ +---- -------+ -------+ Prepared and electronically signed by Quinton Morrow MD 12/14/2021 19:32 Final Dictated: 12/14/2021 7:32 pm Dictating Physician: QUINTON MORROW Signed Date and Time: 12/14/2021 7:32 pm Signed by: QUINTON MORROW Cardiovascular ACCESSION EXAM DATE/TIME PROCEDURE [id number] 12/14/2021 10:41 EDT VL Mesenteric Duplex CPT code 52677 Reason For Exam (VL Mesenteric Duplex) epigastric and LUQ abdominal pain Report [facility] -------- Mesenteric Artery Duplex Report Cardiovascular Report Patient Merlin : 1960 Study 12/14/2021 Name: Catarina Bear (61yrs) Date: Patient [id number] Age: 61 Account: [id number] ID: Gender: F Loc: BP: Ordering Physician: Gloria Solomon Erp Developer: Jose Hopkins RVT Interpreting Physician: Quinton Morrow MD -------- Location: [facility] -------- Indications: LUQ and abdominal pian. -------- Conclusions Study is negative for stenosis involving the celiac irineo (more content not included)... Normal [facility] NM GASTRIC EMPTYINGon 2021 Patient Name: CATARINA BOYER Nuclear Medicine ACCESSION EXAM DATE/TIME PROCEDURE ORDERING PROVIDER [id number] 11/24/2021 10:04 EDT NM Gastric Emptying BARRY, PATRICK-ALFA, Study GLORIA E CPT code 47944 Reason For Exam (NM Gastric Emptying Study) abdominal pain Report Study: GASTRIC EMPTYING STUDY. Clinical indication: Abdominal pain Dose: 1 mCi tc-99m sulfur colloid in standard meal TECHNIQUE: Anterior and posterior imaging was obtained over the abdomen for up to two hours. Geometric mean values were utilized to determine gastric emptying fraction. Findings: The percentage of contents remaining in the stomach is normal, 36%. Normal range 19- 52%. Impression: NORMAL GASTRIC EMPTYING OF SOLIDS. Report Dictated on --- Final --- Dictating Physician: MD RODRIGUEZ JOHN Signed Date and Time: 11/24/2021 10:13 am Signed by: MD RODRIGUEZ JOHN Transcribed Date and Time: 11/24/2021 10:14 [facility] Donald Rodriguez MD - 11/24/2021 Patient Name: CATARINA BOYER Nuclear Medicine ACCESSION EXAM DATE/TIME PROCEDURE ORDERING PROVIDER [id number] 11/24/2021 10:04 EDT NM Gastric Emptying PATRICK SOLOMON-ALFA, Study GLORIA E CPT code 04460 Reason For Exam (NM Gastric Emptying Study) abdominal pain Report Study: GASTRIC EMPTYING STUDY. Clinical indication: Abdominal pain Dose: 1 mCi tc-99m sulfur colloid in standard meal TECHNIQUE: Anterior and posterior imaging was obtained over the abdomen for up to two hours. Geometric mean values were utilized to determine gastric emptying fraction. Findings: The percentage of contents remaining in the stomach is normal, 36%. Normal range 19- 52%. Impression: NORMAL GASTRIC EMPTYING OF SOLIDS. Report Dictated on --- Final --- Dictating Physician: MD RODRIGUEZ JOHN Signed Date and Time: 11/24/2021 10:13 am Signed by: MD RODRIGUEZ JOHN Transcribed Date and Time: 11/24/2021 10:14 [facility] Work Phone: Radiology Study observation (narrative) [facility] Work Phone: NM GASTRIC EMPTYINGOrdered B y: Donald Eloy on 11-24-2021 [facility] Work Phone: NM Gastric Emptying Studyon 11-24-2021 NM Gastric Emptying Study Patient Name: CATARINA BOYER Nuclear Medicine ACCESSION EXAM DATE/TIME PROCEDURE ORDERING PROVIDER [id number] 11/24/2021 10:04 EDT NM Gastric Emptying CAMILO SOLOMON, Study GLORIA Barragan CPT code 75254 Reason For Exam (NM Gastric Emptying Study) abdominal pain Report Study: GASTRIC EMPTYING STUDY. Clinical indication: Abdominal pain Dose: 1 mCi tc-99m sulfur colloid in standard meal TECHNIQUE: Anterior and posterior imaging was obtained over the abdomen for up to two hours. Geometric mean values were utilized to determine gastric emptying fraction. Findings: The percentage of contents remaining in the stomach is normal, 36%. Normal range 19- 52%. Impression: NORMAL GASTRIC EMPTYING OF SOLIDS. Report Dictated on Final Dictating Physician: MD RODRIGUEZ JOHN Signed Date and Time: 11/24/2021 10:13 am Signed by: MD RODRIGUEZ JOHN Transcribed Date and Time: 11/24/2021 10:14 Normal [facility] Ova Parasite Exam, Fecalon 0 10-08-2021 Ova Parasite, Interp Negative Normal Negative [facility] Comment on above: Result Comment: INTE RPRETIVE INFORMATION: Ova and Parasite, Fecal Method for identification of Ova and Parasites includes wet mount and trichrome stains. Due to the various shedding cycles of many parasites, three separate stool specimens collected over a 5-7-day period are recommended for ova and parasite examination. A single negative result does not rule out the possibility of a parasitic infection. The ova and parasite exam does not specifically detect Cryptosporidium, Cyclospora, Cystoisospora, and Microsporidia. For additional test information refer to [employer] consult, [email or web address] Performed By: [facility] [address] [place] [id number] [employer] Faculty: Valentina Moyer MD Performed By: #### B FGI #### [address] [id number] #### FOCC #### [facility] [address] [place] [address] #### OVPO #### The performing lab is in the report. GASTROINTESTINAL PCR PANELon 10-03-2021 GASTROINTESTINAL PCR PANEL GASTROINTESTINAL PCR PANEL --> Status: F NEGATIVE: No targets were detected by the mob[employer] Gastrointestinal PCR Panel. _ The [employer] Gastrointestinal PCR Panel can detect the following targets: Campylobacter, Plesiomonas shigelloides, Salmonella, Vibrio species, Vibrio cholerae, Yersinia enterocolitica, Shiga toxin-producing E coli (STEC) including E coli O157, Enterotoxigenic E coli (ETEC), Shigella/Enteroinvasi ve E coli (EIEC), Cryptosporidium, Cyclospora cayetanensis, Entamoeba histolytica, Giardia lamblia, Adenovirus F 40/41, Astrovirus, Norovirus GI/GII, Rotavirus A, Sapovirus Gastrointestinal PCR Panel. _ The [employer] Gastrointestinal PCR Panel can detect the following targets: Campylobacter, Plesiomonas shigelloides, Salmonella, Vibrio species, Vibrio cholerae, Yersinia enterocolitica, Shiga toxin-producing E coli (STEC) including E coli O157, Enterotoxigenic E coli (ETEC), Shigella/Enteroinvasi ve E coli (EIEC), Cryptosporidium, Cyclospora cayetanensis, Entamoeba histolytica, Giardia lamblia, Adenovirus F 40/41, Astrovirus, Norovirus GI/GII, Rotavirus A, Sapovirus Normal [facility] Comment on above: Performed By: #### B FGI #### [address] #### FOCC #### [facility] [address] [address] #### OVPO #### The performing lab is in the report. Clostridium difficile PCRon 10-02-2021 Clostridium difficile PCR Clostridium difficile by PCR --> Status: F NEGATIVE Methodology - Real Time PCR (Cepheid) Clinical judgement must be used when interpreting results. Positive results may reflect colonization. Indeterminate results suggest a new specimen be submitted. Methodology - Real Time PCR (Cepheid) Clinical judgement must be used when interpreting results. Positive results may reflect colonization. Indeterminate results suggest a new specimen be submitted. Normal [facility] Comment on above: Performed By: #### B FGI #### [address] #### FOCC #### [place] [address] #### OVPO #### The performing lab is in the report. Comp Metabolic Panelon 10-02 ALT [Catalytic activity/Vol] 10 U/L Normal 0-34 [facility] Comment on above: Result Comment: The ALT test is performed by an updated assay method. Please note that the reference intervals have been changed and are now sex specific. Performed By: #### B FGI #### [address] #### FOCC #### [facility] [address] [place] [address] #### OVPO #### The performing lab is in the report. Calcium [Mass/Vol] 8.9 mg/dL Normal 8.4-10.4 [facility] Comment on above: Performed By: #### B FGI #### [address] #### FOCC #### [facility] [address] [place] [address] #### OVPO #### The performing lab is in the report. ALP [Catalytic activity/Vol] 95 U/L Normal 38-126 [facility] Comment on above: Performed By: #### B FGI #### [address] [address] [address] [place], [place] #### FOCC #### [facility] [address] [place] [address] #### OVPO #### The performing lab is in the report. Anion gap [Moles/Vol] 9 mmol/L Normal 3-13 [facility] Comment on above: Performed By: #### B FGI #### [address] [address] [place], [place] #### FOCC #### [facility] [address] [place] [address] #### OVPO #### The performing lab is in the report. AST [Catalytic activity/Vol] 14 U/L Low 15-46 [facility] Comment on above: Performed By: #### B FGI #### [address] [address] [address] [place], [place] #### FOCC #### [facility] [address] [place] [address] #### OVPO #### The performing lab is in the report. Bilirubin [Mass/Vol] 0.4 mg/dL Normal 0.2-1.3 [facility] Comment on above: Performed By: #### B FGI #### [address] [address] [place], [place] #### FOCC #### [facility] [address] [place] [address] #### OVPO #### The performing lab is in the report. CO2 [Moles/Vol] 20 mmol/L Low 22-30 [facility] Comment on above: Performed By: #### B FGI #### [address] [address] [place], [place] #### FOCC #### [facility] [address] [place] [address] #### OVPO #### The performing lab is in the report. Creatinine [Mass/Vol] 2.36 mg/dL High 0.52-1.25 [facility] Comment on above: Performed By: #### B FGI #### [facility] [address] [place], [place] #### FOCC #### [facility] [address] [place] [address] #### OVPO #### The performing lab is in the report. GFR/1.73 sq M.predicted among blacks MDRD (S/P/Bld) [Vol rate/Area] 25.2 mL/min/{1.73_m2} Abnormal >60 [facility] Comment on above: Performed By: #### B FGI #### [address] [address] [place], [place] #### FOCC #### [facility] [address] [place] [address] #### OVPO #### The performing lab is in the report. GFR/1.73 sq M.predicted among non-blacks MDRD (S/P/Bld) [Vol rate/Area] 21.7 mL/min/{1.73_m2} Abnormal >60 [facility] Comment on above: Result Comment: KDIG O guidelines provide the following GFR categories: Stage GFR(ml/min/1.73 m2) Terms G1 >=90 Normal or high G2 60-89 Mildly decreased* G3a 45-59 Mildly to moderately decreased G3b 30-44 Moderately to severely decreased G4 15-29 Severely decreased G5 <15 Kidney failure *Relative to young adult level. In the absence of evidence of kidney damage, neither GFR category G1 nor G2 fulfill the criteria for CKD. The CKD-EPI equation is validated in individuals 18 years of age and older. Currently the best equation for estimating glomerular filtration rate (GFR) from serum creatinine in children is the Bedside Chan equation. It is less accurate in patients with extremes of muscle mass, restriction of dietary protein, ingestion of creatine, extra-renal metabolism of creatinine, or treatment with medications that affect renal tubular creatinine secretion. Performed By: #### B FGI #### [facility] [address] [place], [place] #### FOCC #### [facility] [address] [address] #### OVPO #### The performing lab is in the report. Glucose [Mass/Vol] 152 mg/dL High 70-100 [facility] Comment on above: Performed By: #### B FGI #### [address] [address] [place], [place] #### FOCC #### [facility] [address] [place] [address] #### OVPO #### The performing lab is in the report. Protein [Mass/Vol] 7.0 g/dL Normal 6.3-8.2 [facility] Comment on above: Performed By: #### B FGI #### [address] [address] [address] [place], [place] #### FOCC #### [address] [place] [address] #### OVPO #### The performing lab is in the report. Urea nitrogen [Mass/Vol] 20 mg/dL Normal 9-20 [facility] Comment on above: Performed By: #### B FGI #### [address] [place], [place] #### FOCC #### [place] [address] #### OVPO #### The performing lab is in the report. Potassium [Moles/Vol] 4.8 mmol/L Normal 3.5-5.1 [facility] Comment on above: Performed By: #### B FGI #### [address] [place], [place] #### FOCC #### [place] [address] #### OVPO #### The performing lab is in the report. Sodium [Moles/Vol] 138 mmol/L Normal 135-145 [facility] Comment on above: Performed By: #### B FGI #### [address] [address] [place], [place] #### FOCC #### [address] [place] [address] #### OVPO #### The performing lab is in the report. Albumin [Mass/Vol] 4.3 g/dL Normal 3.5-5.0 [facility] Comment on above: Performed By: #### B FGI #### [address] [place] [address] [place], [place] #### FOCC #### [facility] [address] [address] #### OVPO #### The performing lab is in the report. Chloride [Moles/Vol] 110 mmol/L High 98-107 [facility] Comment on above: Performed By: #### B FGI #### [address] #### FOCC #### [place] [address] #### OVPO #### The performing lab is in the report. Fecal Occult,Stool Single Sp econ 10-02-2021 Fecal Occult,Stool Single Spec Negative Normal Negative [facility] Comment on above: Performed By: #### B FGI #### [address] [place], [place] #### FOCC #### [place] [address] #### OVPO #### The performing lab is in the report. Hemogram w/ Autodiffon 10-02 Abs Baso Cnt 0.0 10*3/uL Normal 0.0-0.2 [facility] Comment on above: Performed By: #### B FGI #### [address] [address] [place], [place] #### FOCC #### [address] [place] [address] #### OVPO #### The performing lab is in the report. Abs Neutrophile Cnt 5.9 10*3/uL Normal 1.8-7.0 [facility] Comment on above: Performed By: #### B FGI #### [address] [address] [place], [place] #### FOCC #### [facility] [address] [place] [address] #### OVPO #### The performing lab is in the report. Basophils/100 WBC (Bld) 0.5 % Normal 0.0-2.0 [facility] Comment on above: Performed By: #### B FGI #### [address] [place] [address] [place], [place] #### FOCC #### [facility] [address] [place] [address] #### OVPO #### The performing lab is in the report. Eosinophils (Bld) [#/Vol] 0.1 10*3/uL Normal 0.0-0.5 [facility] Comment on above: Performed By: #### B FGI #### [address] [place], [place] #### FOCC #### [facility] [address] [place] [address] #### OVPO #### The performing lab is in the report. Eosinophils/100 WBC (Bld) 0.9 % Low 1.0-6.0 [facility] Comment on above: Performed By: #### B FGI #### [address] [place], [place] #### FOCC #### [facility] [address] [address] #### OVPO #### The performing lab is in the report. Erythrocyte distribution width (RBC) [Ratio] 13.1 % Normal 11.5-14.5 [facility] Comment on above: Performed By: #### B FGI #### [address] #### FOCC #### [facility] [address] [place] [address] #### OVPO #### The performing lab is in the report. Granulocytes/100 WBC (Bld) 68.3 % Normal 40.0-80.0 [facility] Comment on above: Performed By: #### B FGI #### [address] [address] [place] #### FOCC #### [facility] [address] [place] [address] #### OVPO #### The performing lab is in the report. Hematocrit (Bld) [Volume fraction] 32.5 % Low 35.0-47.0 [facility] Comment on above: Performed By: #### B FGI #### [address] [address] [place], [place] #### FOCC #### [place] [address] #### OVPO #### The performing lab is in the report. Hemoglobin (Bld) [Mass/Vol] 10.9 g/dL Low 11.7-16.0 [facility] Comment on above: Performed By: #### B FGI #### [address] [place], [place] #### FOCC #### [place] [address] #### OVPO #### The performing lab is in the report. Lymphocytes (Bld) [#/Vol] 2.0 10*3/uL Normal 1.0-4.3 [facility] Comment on above: Performed By: #### B FGI #### [address] [place], [place] #### FOCC #### [facility] [address] [place] [address] #### OVPO #### The performing lab is in the report. Lymphocytes/100 WBC (Bld) 22.9 % Normal 20.0-40.0 [facility] Comment on above: Performed By: #### B FGI #### [address] #### FOCC #### [place] [address] #### OVPO #### The performing lab is in the report. MCH (RBC) [Entitic mass] 28.7 pg Normal 26.0-34.0 [facility] Comment on above: Performed By: #### B FGI #### [address] #### FOCC #### [place] [address] #### OVPO #### The performing lab is in the report. MCHC 33.5 % Normal 32.0-36.0 [facility] Comment on above: Performed By: #### B FGI #### [address] #### FOCC #### [place] [address] #### OVPO #### The performing lab is in the report. MCV (RBC) [Entitic vol] 85.5 fL Normal 79.0-98.0 [facility] Comment on above: Performed By: #### B FGI #### [address] #### FOCC #### [place] [address] #### OVPO #### The performing lab is in the report. Monocytes (Bld) [#/Vol] 0.6 10*3/uL Normal 0.0-0.8 [facility] Comment on above: Performed By: #### B FGI #### [address] #### FOCC #### [place] [address] #### OVPO #### The performing lab is in the report. Monocytes/100 WBC (Bld) 6.6 % Normal 2.0-10.0 [facility] Comment on above: Performed By: #### B FGI #### [address] [address] [place], [place] #### FOCC #### [facility] [address] [place] [address] #### OVPO #### The performing lab is in the report. Platelet mean volume (Bld) [Entitic vol] 10.5 fL Normal 7.4-12.4 [facility] Comment on above: Result Comment: MPV is a calculated measurement using platelet volume ratio. Performed By: #### B FGI #### [address] #### FOCC #### [facility] [address] [place] [address] #### OVPO #### The performing lab is in the report. Platelets (Bld) [#/Vol] 359 10*3/uL Normal 140-440 [facility] Comment on above: Performed By: #### B FGI #### [address] #### FOCC #### [facility] [address] [place] [address] #### OVPO #### The performing lab is in the report. RBC (Bld) [#/Vol] 3.80 10*6/uL Normal 3.80-5.20 [facility] Comment on above: Performed By: #### B FGI #### [address] #### FOCC #### [facility] [address] [place] [address] #### OVPO #### The performing lab is in the report. WBC (Bld) [#/Vol] 8.7 10*3/uL Normal 3.6-10.7 [facility] Comment on above: Performed By: #### B FGI #### [address] #### FOCC #### [facility] [address] [place] [address] #### OVPO #### The performing lab is in the report. Lipaseon 10-02-2021 Lipase [Catalytic activity/Vol] 156 U/L Normal 23-300 [facility] Comment on above: Performed By: #### B FGI #### [facility] [address] [place], [place] #### FOCC #### [facility] [address] [place] [address] #### OVPO #### The performing lab is in the report. Lipid Panelon 10-02-2021 Chol/HDL 4 Normal [facility] Comment on above: Result Comment: Ref Range: < 3 Low Risk for CHD 3-6 Mod Risk for CHD > 6 High Risk for CHD Performed By: #### B FGI #### [facility] [address] [place], [place] #### FOCC #### [facility] [address] [place] [address] #### OVPO #### The performing lab is in the report. Cholesterol [Mass/Vol] 162 mg/dL Normal < 200 [facility] Comment on above: Performed By: #### B FGI #### [facility] [address] [place], [place] #### FOCC #### [facility] [address] [place] [address] #### OVPO #### The performing lab is in the report. Cholesterol in HDL [Mass/Vol] 41 mg/dL Normal 40-60 [facility] Comment on above: Performed By: #### B FGI #### [facility] [address] [place], [place] #### FOCC #### [facility] [address] [place] [address] #### OVPO #### The performing lab is in the report. Low Density Lipoprotein 57 mg/dL Normal <100 [facility] Comment on above: Performed By: #### B FGI #### [facility] [address] [place] [address] #### FOCC #### [facility] [address] [place] [address] #### OVPO #### The performing lab is in the report. Triglyceride [Mass/Vol] 322 mg/dL Abnormal <150 [facility] Comment on above: Performed By: #### B FGI #### [facility] [address] [place] [address] #### FOCC #### [facility] [address] [place] [address] #### OVPO #### The performing lab is in the report. CBC with Auto Differentialon 10-01-2021 Absolute Baso # 0.0 10*3/uL 0.0 - 0.2 10*3/uL [facility] Work Phone: Absolute Neut # 5.5 10*3/uL 1.8 - 7.0 10*3/uL [facility] Work Phone: Basophils/100 WBC (Bld) 0.4 % 0.0 - 2.0 % [facility] Work Phone: Eosinophils (Bld) [#/Vol] 0.1 10*3/uL 0.0 - 0.5 10*3/uL [facility] Work Phone: Eosinophils/100 WBC (Bld) 1.2 % 1.0 - 6.0 % [facility] Work Phone: Granulocytes/100 WBC (Bld) 62.4 % 40.0 - 80.0 % [facility] Work Phone: Hematocrit (Bld) [Volume fraction] 32.6 % Low 35.0 - 47.0 % [facility] Work Phone: Hemoglobin (Bld) [Mass/Vol] 11.0 g/dL Low 11.7 - 16.0 g/dL [facility] Work Phone: Interpretation and review of laboratory results Abnormal [facility] Work Phone: Lymphocytes (Bld) [#/Vol] 2.5 10*3/uL 1.0 - 4.3 10*3/uL [employer] Work Phone: Lymphocytes/100 WBC (Bld) 28.3 % 20.0 - 40.0 % [employer] Work Phone: MCH (RBC) [Entitic mass] 28.4 pg 26.0 - 34.0 pg [employer] Work Phone: MCHC (RBC) [Mass/Vol] 33.7 % 32.0 - 36.0 % [employer] Work Phone: MCV (RBC) [Entitic vol] 84.0 fL 79.0 - 98.0 fL [employer] Phone: Monocytes (Bld) [#/Vol] 0.6 10*3/uL 0.0 - 0.8 10*3/uL [employer] Work Phone: Monocytes/100 WBC (Bld) 6.9 % 2.0 - 10.0 % [employer] Work Phone: Platelet distribution width (Bld) [Ratio] 13.0 % 11.5 - 14.5 % [employer] Phone: Platelet mean volume (Bld) [Entitic vol] 10.2 fL 7.4 - 12.4 fL [employer] Phone: Comment on above: MPV is a calculated measurement using platelet volume ratio. Platelets (Bld) [#/Vol] 342 10*3/uL 140 - 440 10*3/uL [employer] Work Phone: RBC (Bld) [#/Vol] 3.88 10*6/uL 3.80 - 5.2 0 10*6/uL [employer] Work Phone: WBC (Bld) [#/Vol] 8.9 10*3/uL 3.6 - 10.7 10*3/uL [employer] Work Phone: Test Performed by [facility], [address] , [place], [place] [id number] [place] [address] Work Phone: CT Abdomen Pelvis Wo Hussain guy 10-01-2021 Patient Name: CATARINA BOYER Computed Tomography ACCESSION EXAM DATE/TIME PROCEDURE ORDERING PROVIDER [id number] 10/01/2021 16:[address] Abdomen/Pelvis (Marcia CH MD, DAVID L PO, No IV) CPT code 22635 Reason For Exam (CT Abdomen/Pelvis (No PO, No IV)) upper abdominal pain Report Indication: Upper abdominal pain. Epigastric pain. Noncontrast CT examination of the abdomen and pelvis. COMPARISON: 12/10/2018 CT examination. Images of the lung bases show no infiltrates or pleural effusions. Small amount of gallbladder sludge versus gravel like stones noted in the gallbladder lumen. The biliary tree is decompressed. The liver, spleen, pancreas and adrenal glands are within normal limits for a noncontrast CT examination. Bilateral low-density renal lesions are stable. Hyperdense lesion in the inferior pole of the left kidney is stable in size and most compatible with a hemorrhagic cyst. No renal stones, hydronephrosis or ureteral dilatation. No perinephric fluid collections No retroperitoneal or mesenteric adenopathy. Atherosclerotic calcifications of the abdominal aorta and iliac vessels noted without aneurysmal dilatation. Bowel segments are nondistended. Normal caliber of the appendix. Colonic diverticulosis noted, most pronounced in the sigmoid colon. No definite evidence of acute diverticulitis. No free fluid. No free intraperitoneal air. Images of the pelvis show a partially distended urinary bladder. No urinary bladder stones. No free fluid in the pelvis. No pelvic adenopathy. IMPRESSION: No evidence of an acute intra-abdominal or intrapelvic process. Diverticulosis of the sigmoid colon. Small amount of gallbladder sludge versus gravel like stones. The biliary tree is decompressed. Computed Tomography Report Report Dictated on --- Final --- Dictating Physician: MD NOYOLA LAURA Signed Date and Time: 10/01/2021 4:36 pm Signed by: MD NOYOLA LAURA Transcribed Date and Time: 10/01/2021 4:37 ROMARIO BRANTLEY RAD Melani Noyola MD - 10/01/2021 Patient Name: CATARINA BOYER [id number] Computed Tomography ACCESSION EXAM DATE/TIME PROCEDURE ORDERING PROVIDER [id number] 10/01/2021 16:[address] Abdomen/Pelvis (No MD CH DAVID L PO, No IV) CPT code 49574 Reason For Exam (CT Abdomen/Pelvis (No PO, No IV)) upper abdominal pain Report Indication: Upper abdominal pain. Epigastric pain. Noncontrast CT examination of the abdomen and pelvis. COMPARISON: 12/10/2018 CT examination. Images of the lung bases show no infiltrates or pleural effusions. Small amount of gallbladder sludge versus gravel like stones noted in the gallbladder lumen. The biliary tree is decompressed. The liver, spleen, pancreas and adrenal glands are within normal limits for a noncontrast CT examination. Bilateral low-density renal lesions are stable. Hyperdense lesion in the inferior pole of the left kidney is stable in size and most compatible with a hemorrhagic cyst. No renal stones, hydronephrosis or ureteral dilatation. No perinephric fluid collections No retroperitoneal or mesenteric adenopathy. Atherosclerotic calcifications of the abdominal aorta and iliac vessels noted without aneurysmal dilatation. Bowel segments are nondistended. Normal caliber of the appendix. Colonic diverticulosis noted, most pronounced in the sigmoid colon. No definite evidence of acute diverticulitis. No free fluid. No free intraperitoneal air. Images of the pelvis show a partially distended urinary bladder. No urinary bladder stones. No free fluid in the pelvis. No pelvic adenopathy. IMPRESSION: No evidence of an acute intra-abdominal or intrapelvic process. Diverticulosis of the sigmoid colon. Small amount of gallbladder sludge versus gravel like stones. The biliary tree is decompressed. Computed Tomography Report Report Dictated on --- Final --- Dictating Physician: MD NOYOLA LAURA Signed Date and Time: 10/01/2021 4:36 pm Signed by: MD NOYOLA LAURA Transcribed Date and Time: 10/01/2021 4:37 [facility] Work Phone: Radiology Study observation (narrative) [facility] Work Phone: CT Abdomen Pelvis Wo Contras tOrdered By: Melani Noyola on 10-01-2021 [facility] Work Phone: CT Abdomen/Pelvis w/o Contra ston 10-01-2021 CT Abdomen/Pelvis w/o Contrast Patient Name: CATARINA [id number] Computed Tomography ACCESSION EXAM DATE/TIME PROCEDURE ORDERING PROVIDER [id number] 10/01/2021 16:[address] Abdomen/Pelvis (No MD CH DAVID L PO, No IV) CPT code 16445 Reason For Exam (CT Abdomen/Pelvis (No PO, No IV)) upper abdominal pain Report Indication: Upper abdominal pain. Epigastric pain. Noncontrast CT examination of the abdomen and pelvis. COMPARISON: 12/10/2018 CT examination. Images of the lung bases show no infiltrates or pleural effusions. Small amount of gallbladder sludge versus gravel like stones noted in the gallbladder lumen. The biliary tree is decompressed. The liver, spleen, pancreas and adrenal glands are within normal limits for a noncontrast CT examination. Bilateral low-density renal lesions are stable. Hyperdense lesion in the inferior pole of the left kidney is stable in size and most compatible with a hemorrhagic cyst. No renal stones, hydronephrosis or ureteral dilatation. No perinephric fluid collections No retroperitoneal or mesenteric adenopathy. Atherosclerotic calcifications of the abdominal aorta and iliac vessels noted without aneurysmal dilatation. Bowel segments are nondistended. Normal caliber of the appendix. Colonic diverticulosis noted, most pronounced in the sigmoid colon. No definite evidence of acute diverticulitis. No free fluid. No free intraperitoneal air. Images of the pelvis show a partially distended urinary bladder. No urinary bladder stones. No free fluid in the pelvis. No pelvic adenopathy. IMPRESSION: No evidence of an acute intra-abdominal or intrapelvic process. Diverticulosis of the sigmoid colon. Small amount of gallbladder sludge versus gravel like stones. The biliary tree is decompressed. Computed Tomography Report Report Dictated on Final Dictating Physician: MD NOYOLA LAURA Signed Date and Time: 10/01/2021 4:36 pm Signed by: MD NOYOLA LAURA Transcribed Date and Time: 10/01/2021 4:37 Normal [facility] Comp Metabolic Panelon 10-01 ALP [Catalytic activity/Vol] 106 U/L Normal 38-126 [facility] Comment on above: Performed By: #### B FGI #### [address] #### FOCC #### [facility] [address] [place] [address] #### OVPO #### The performing lab is in the report. ALT [Catalytic activity/Vol] 9 U/L Normal 0-34 [facility] Comment on above: Result Comment: The ALT test is performed by an updated assay method. Please note that the reference intervals have been changed and are now sex specific. Performed By: #### B FGI #### [address] [place], [place] #### FOCC #### [facility] [address] [place] [address] #### OVPO #### The performing lab is in the report. AST [Catalytic activity/Vol] 14 U/L Low 15-46 [facility] Comment on above: Performed By: #### B FGI #### [address] [address] [place], [place] #### FOCC #### [facility] [address] [place] [address] #### OVPO #### The performing lab is in the report. Calcium [Mass/Vol] 8.9 mg/dL Normal 8.4-10.4 [facility] Comment on above: Performed By: #### B FGI #### [address] [place], [place] #### FOCC #### [facility] [address] [facility] [address] #### OVPO #### The performing lab is in the report. Glucose [Mass/Vol] 99 mg/dL Normal 70-100 [facility] Comment on above: Performed By: #### B FGI #### [facility] [address] [place], [place] #### FOCC #### [facility] [address] [place] [address] #### OVPO #### The performing lab is in the report. Urea nitrogen [Mass/Vol] 21 mg/dL High 9-20 [facility] Comment on above: Performed By: #### B FGI #### [address] [place], [place] #### FOCC #### [facility] [address] [place] [address] #### OVPO #### The performing lab is in the report. Anion gap [Moles/Vol] 11 mmol/L Normal 3-13 [facility] Comment on above: Performed By: #### B FGI #### [address] [place], [place] #### FOCC #### [facility] [address] [place] [address] #### OVPO #### The performing lab is in the report. Bilirubin [Mass/Vol] 0.5 mg/dL Normal 0.2-1.3 [facility] Comment on above: Performed By: #### B FGI #### [address] [place], [place] #### FOCC #### [facility] [address] [place] [address] #### OVPO #### The performing lab is in the report. CO2 [Moles/Vol] 19 mmol/L Low 22-30 [facility] Comment on above: Performed By: #### B FGI #### [facility] [address] [place], [place] #### FOCC #### [facility] [address] [place] [address] #### OVPO #### The performing lab is in the report. Creatinine [Mass/Vol] 2.24 mg/dL High 0.52-1.25 [facility] Comment on above: Performed By: #### B FGI #### [address] [place], [place] #### FOCC #### [facility] [address] [facility] [place] [address] #### OVPO #### The performing lab is in the report. GFR/1.73 sq M.predicted among blacks MDRD (S/P/Bld) [Vol rate/Area] 26.8 mL/min/{1.73_m2} Abnormal >60 [facility] Comment on above: Performed By: #### B FGI #### [address] #### FOCC #### [facility] [address] [facility] [place] [address] #### OVPO #### The performing lab is in the report. GFR/1.73 sq M.predicted among non-blacks MDRD (S/P/Bld) [Vol rate/Area] 23.2 mL/min/{1.73_m2} Abnormal >60 [facility] Comment on above: Result Comment: KDIG O guidelines provide the following GFR categories: Stage GFR(ml/min/1.73 m2) Terms G1 >=90 Normal or high G2 60-89 Mildly decreased* G3a 45-59 Mildly to moderately decreased G3b 30-44 Moderately to severely decreased G4 15-29 Severely decreased G5 <15 Kidney failure *Relative to young adult level. In the absence of evidence of kidney damage, neither GFR category G1 nor G2 fulfill the criteria for CKD. The CKD-EPI equation is validated in individuals 18 years of age and older. Currently the best equation for estimating glomerular filtration rate (GFR) from serum creatinine in children is the Bedside Chan equation. It is less accurate in patients with extremes of muscle mass, restriction of dietary protein, ingestion of creatine, extra-renal metabolism of creatinine, or treatment with medications that affect renal tubular creatinine secretion. Performed By: #### B FGI #### [address] #### FOCC #### [facility] [address] [place] [address] #### OVPO #### The performing lab is in the report. Protein [Mass/Vol] 7.4 g/dL Normal 6.3-8.2 [facility] Comment on above: Performed By: #### B FGI #### [address] [place], [place] #### FOCC #### [facility] [address] [place] [address] #### OVPO #### The performing lab is in the report. Potassium [Moles/Vol] 4.7 mmol/L Normal 3.5-5.1 [facility] Comment on above: Performed By: #### B FGI #### [address] [place], [place] #### FOCC #### [address] [place] [address] #### OVPO #### The performing lab is in the report. Sodium [Moles/Vol] 138 mmol/L Normal 135-145 [facility] Comment on above: Performed By: #### B FGI #### [address] [place] #### FOCC #### [facility] [address] [facility] [address] #### OVPO #### The performing lab is in the report. Albumin [Mass/Vol] 4.4 g/dL Normal 3.5-5.0 [facility] Comment on above: Performed By: #### B FGI #### [address] [place], [place] #### FOCC #### [facility] [address] [facility] [address] #### OVPO #### The performing lab is in the report. Chloride [Moles/Vol] 109 mmol/L High 98-107 [facility] Comment on above: Performed By: #### B FGI #### [facility] [address] [place] [address] #### FOCC #### [facility] [address] [place] [address] #### OVPO #### The performing lab is in the report. Complete Urinalysison 2021 Bacteria LM.HPF (Urine sed) [#/Area] Negative Normal Negative [facility] Comment on above: Result Comment: . Performed By: #### C UA2 #### [facility] [address] [place] [address] RBC, Urine 0 - 2 Normal 0-2 [facility] Comment on above: Result Comment: . Performed By: #### C UA2 #### [facility] [address] [place] [address] Squamous Epithelial 3 - 5 Normal 3-5 [facility] Comment on above: Result Comment: . Performed By: #### C UA2 #### [facility] [address] [place] [address] VOLUME, URINE 12 ml Normal [facility] Comment on above: Result Comment: . Performed By: #### C UA2 #### [facility] [address] [place] [address] WBC, Urine 3 - 5 Normal 0-5 [facility] Comment on above: Result Comment: . Performed By: #### C UA2 #### [facility] [address] [place] [address] Appearance (U) Clear Normal Clear [facility] Comment on above: Result Comment: . Performed By: #### C UA2 #### [facility] [address] [place] [address] Bilirubin,Urine Negative Normal Negative [facility] Comment on above: Result Comment: . Performed By: #### C UA2 #### [facility] [address] [place] [address] Color (U) LIGHT YELLOW Normal Lt. Yellow [facility] Comment on above: Result Comment: . Performed By: #### C UA2 #### [facility] [address] [place] [address] Glucose Ql (U) Normal Normal Normal (<70) [facility] Comment on above: Result Comment: . Performed By: #### C UA2 #### [facility] [address] [place] [address] Ketone,Urine Negative Normal Negative [facility] Comment on above: Result Comment: . Performed By: #### C UA2 #### [facility] [address] [place] [address] Leukocytes,Urine Negative Normal Negative [facility] Comment on above: Result Comment: . Performed By: #### C UA2 #### [facility] [address] [place] [address] Nitrites,Urine Negative Normal Negative [facility] Comment on above: Result Comment: . Performed By: #### C UA2 #### [facility] [address] [place] [address] Occult Blood,Urine Negative Normal Negative [facility] Comment on above: Result Comment: . Performed By: #### C UA2 #### [facility] [address] [place] [address] pH,Urine 6.0 Normal 5.0-8.0 [facility] Comment on above: Result Comment: . Performed By: #### C UA2 #### [facility] [address] [place] [address] Protein (U) [Mass/Vol] 100 mg/dL Abnormal Negative [facility] Comment on above: Result Comment: . Performed By: #### C UA2 #### [facility] [address] [place] [address] Specific [place],Urine 1.007 Normal 1.005 - 1.030 [facility] Comment on above: Result Comment: . Performed By: #### C UA2 #### [facility] [address] [place] [address] Urobilinogen,Urine Normal Normal Normal (0-1) [facility] Comment on above: Result Comment: . Performed By: #### C UA2 #### [address] [place] [address] Comprehensive Metabolic Pane niall 10-01-2021 Albumin [Mass/Vol] 4.4 g/dL 3.5 - 5.0 g/dL [facility] Work Phone: ALP (Bld) [Catalytic activity/Vol] 106 U/L 38 - 126 U/L [facility] Work Phone: ALT [Catalytic activity/Vol] 9 U/L 0 - 34 U/L [facility] Work Phone: Comment on above: The ALT test is perf ormed by an updated assay method. Please note that the reference intervals have been changed and are now sex specific. Anion gap [Moles/Vol] 11 mmol/L 3 - 13 mmol/L [facility] Work Phone: AST [Catalytic activity/Vol] 14 U/L Low 15 - 46 U/L [facility] Work Phone: Bilirubin [Mass/Vol] 0.5 mg/dL 0.2 - 1 .3 mg/dL [facility] Work Phone: Calcium [Mass/Vol] 8.9 mg/dL 8.4 - 10. 4 mg/dL [facility] Work Phone: Chloride [Moles/Vol] 109 mmol/L High 98 - 10 7 mmol/L [facility] Work Phone: CO2 [Moles/Vol] 19 mmol/L Low 22 - 30 mmol/L [facility] Work Phone: Creatinine [Mass/Vol] 2.24 mg/dL High 0.52 - 1.25 mg/dL [facility] Work Phone: EGFR IF NonAfrican [place] 23.2 mL/min Abnormal >60 [facility] Work Phone: Comment on above: KDIGO guidelines pro vide the following GFR categories: Stage GFR(ml/min/1.73 m2) Terms G1 >=90 Normal or high G2 60-89 Mildly decreased* G3a 45-59 Mildly to moderately decreased G3b 30-44 Moderately to severely decreased G4 15-29 Severely decreased G5 <15 Kidney failure *Relative to young adult level. In the absence of evidence of kidney damage, neither GFR category G1 nor G2 fulfill the criteria for CKD. The CKD-EPI equation is validated in individuals 18 years of age and older. Currently the best equation for estimating glomerular filtration rate (GFR) from serum creatinine in children is the Bedside Chan equation. It is less accurate in patients with extremes of muscle mass, restriction of dietary protein, ingestion of creatine, extra-renal metabolism of creatinine, or treatment with medications that affect renal tubular creatinine secretion. Free PSA/Total PSA [Mass fraction] 7.4 g/dL 6.3 - 8.2 g/dL [facility] Work Phone: GFR/1.73 sq M.predicted among blacks MDRD (S/P/Bld) [Vol rate/Area] 26.8 mL/min/{1.73_m2} Abnormal >60 [facility] Work Phone: Glucose [Mass/Vol] 99 mg/dL 70 - 100 mg/dL [facility] Work Phone: Interpretation and review of laboratory results Abnormal [facility] Work Phone: Potassium [Moles/Vol] 4.7 mmol/L 3.5 - 5.1 mmol/L [facility] Work Phone: Sodium [Moles/Vol] 138 mmol/L 135 - 145 mmol/L [facility] Work Phone: Urea nitrogen (BldV) [Mass/Vol] 21 mg/dL High 9 - 20 mg/dL [facility] Work Phone: EKG 12 Lead - Chest Painon 0 10-01-2021 [facility] Connect Test Date: 2021-10-01 Pat Name: CATARINA BOYER Department: 2BED Room: 04 Gender: 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1960 Requested By: ANGEL CH Order Number: [id number] Reading MD: Angel Ch Measurements Intervals [place] Rate: 69 P: 30 GA: 151 QRS: 16 QRSD: 84 T: 62 QT: 399 QTc: 427 Interpretive Statements Sinus rhythm Compared to ECG 07/21/2021 10:05:40 Right ventricular hypertrophy no longer present Electronically Signed On 10-01-2021 16:14:07 EDT by Angel BRANTLEY Work Phone: [facility] Work Phone: Hemogram w/ Autodiffon 10-01 Abs Baso Cnt 0.0 10*3/uL Normal 0.0-0.2 [facility] Comment on above: Performed By: #### B FGI #### [address] #### FOCC #### [place] [address] #### OVPO #### The performing lab is in the report. Abs Neutrophile Cnt 5.5 10*3/uL Normal 1.8-7.0 [facility] Comment on above: Performed By: #### B FGI #### [address] #### FOCC #### [place] [address] #### OVPO #### The performing lab is in the report. Basophils/100 WBC (Bld) 0.4 % Normal 0.0-2.0 [facility] Comment on above: Performed By: #### B FGI #### [address] #### FOCC #### [facility] [address] [place] [address] #### OVPO #### The performing lab is in the report. Eosinophils (Bld) [#/Vol] 0.1 10*3/uL Normal 0.0-0.5 [facility] Comment on above: Performed By: #### B FGI #### [address] [place], [place] #### FOCC #### [facility] [address] [place] [address] #### OVPO #### The performing lab is in the report. Eosinophils/100 WBC (Bld) 1.2 % Normal 1.0-6.0 [facility] Comment on above: Performed By: #### B FGI #### [address] #### FOCC #### [place] [address] #### OVPO #### The performing lab is in the report. Erythrocyte distribution width (RBC) [Ratio] 13.0 % Normal 11.5-14.5 [facility] Comment on above: Performed By: #### B FGI #### [address] #### FOCC #### [place] [address] #### OVPO #### The performing lab is in the report. Granulocytes/100 WBC (Bld) 62.4 % Normal 40.0-80.0 [facility] Comment on above: Performed By: #### B FGI #### [address] [place], [place] #### FOCC #### [place] [address] #### OVPO #### The performing lab is in the report. Hematocrit (Bld) [Volume fraction] 32.6 % Low 35.0-47.0 [facility] Comment on above: Performed By: #### B FGI #### [address] [place], [place] #### FOCC #### [facility] [address] [place] [address] #### OVPO #### The performing lab is in the report. Hemoglobin (Bld) [Mass/Vol] 11.0 g/dL Low 11.7-16.0 [facility] Comment on above: Performed By: #### B FGI #### [address] [place], [place] #### FOCC #### [facility] [address] [place] [address] #### OVPO #### The performing lab is in the report. Lymphocytes (Bld) [#/Vol] 2.5 10*3/uL Normal 1.0-4.3 [facility] Comment on above: Performed By: #### B FGI #### [address] [place], [place] #### FOCC #### [facility] [address] [facility] [place] [address] #### OVPO #### The performing lab is in the report. Lymphocytes/100 WBC (Bld) 28.3 % Normal 20.0-40.0 [facility] Comment on above: Performed By: #### B FGI #### [address] [place], [place] #### FOCC #### [facility] [address] [place] [address] #### OVPO #### The performing lab is in the report. MCH (RBC) [Entitic mass] 28.4 pg Normal 26.0-34.0 [facility] Comment on above: Performed By: #### B FGI #### [address] [place], [place] #### FOCC #### [facility] [address] [place] [address] #### OVPO #### The performing lab is in the report. MCHC 33.7 % Normal 32.0-36.0 [facility] Comment on above: Performed By: #### B FGI #### [address] [place] #### FOCC #### [facility] [address] [facility] [address] #### OVPO #### The performing lab is in the report. MCV (RBC) [Entitic vol] 84.0 fL Normal 79.0-98.0 [facility] Comment on above: Performed By: #### B FGI #### [address] [address] [place], [place] #### FOCC #### [place] [address] #### OVPO #### The performing lab is in the report. Monocytes (Bld) [#/Vol] 0.6 10*3/uL Normal 0.0-0.8 [facility] Comment on above: Performed By: #### B FGI #### [address] [address] [place] #### FOCC #### [facility] [address] [place] [address] #### OVPO #### The performing lab is in the report. Monocytes/100 WBC (Bld) 6.9 % Normal 2.0-10.0 [facility] Comment on above: Performed By: #### B FGI #### [address] [place], [place] #### FOCC #### [facility] [address] [place] [address] #### OVPO #### The performing lab is in the report. Platelet mean volume (Bld) [Entitic vol] 10.2 fL Normal 7.4-12.4 [facility] Comment on above: Result Comment: MPV is a calculated measurement using platelet volume ratio. Performed By: #### B FGI #### [address] [place], [place] #### FOCC #### [facility] [address] [place] [address] #### OVPO #### The performing lab is in the report. Platelets (Bld) [#/Vol] 342 10*3/uL Normal 140-440 [facility] Comment on above: Performed By: #### B FGI #### [address] [place], [place] #### FOCC #### [facility] [address] [place] [address] #### OVPO #### The performing lab is in the report. RBC (Bld) [#/Vol] 3.88 10*6/uL Normal 3.80-5.20 [facility] Comment on above: Performed By: #### B FGI #### [address] [place], [place] #### FOCC #### [address] [place] [address] #### OVPO #### The performing lab is in the report. WBC (Bld) [#/Vol] 8.9 10*3/uL Normal 3.6-10.7 [facility] Comment on above: Performed By: #### B FGI #### [address] [address] [place] #### FOCC #### [facility] [address] [place] [address] #### OVPO #### The performing lab is in the report. Lipaseon 10-01-2021 Lipase [Catalytic activity/Vol] 193 U/L Normal 23-300 [facility] Comment on above: Performed By: #### B FGI #### [address] #### FOCC #### [facility] [address] [place] [address] #### OVPO #### The performing lab is in the report. LipaseOrdered By: Woo Shine tt on 10-01-2021 Lipase [Catalytic activity/Vol] 193 U/L 23 - 300 U/L [employer] Work Phone: No Panel Informationon 10-01 [facility] by [email or web address], [address] , [address] LAB No Panel InformationOrdered By: Woo Ch on 10-01-2021 [employer] Work Phone: Troponin Ion 10-01-2021 Troponin I.cardiac [Mass/Vol] ng/mL Normal 0.000-0.034 [email or web address] Comment on above: Result Comment: . Performed By: #### B FGI #### [facility] [address] [place] [address] #### FOCC #### [facility] [address] [facility] [place] [address] #### OVPO #### The performing lab is in the report. Troponin x1on 10-01-2021 Troponin I.cardiac [Mass/Vol] ng/mL 0.000 - 0.034 ng/mL [employer] Work Phone: Comment on above: . Test Performed by [employer], [address] [place] [address]. [address] LAB [employer] Work Phone: US ABDOMEN LIMITED Specify o rgan? GALLBLADDERon 10-01-2021 Patient Name: CATARINA BOYER Ultrasound ACCESSION EXAM DATE/TIME PROCEDURE ORDERING PROVIDER [id number] 10/01/2021 17:40 EDT US Abdomen Limited MD DIMA, ANGEL Harris CPT code 58304 Reason For Exam (US Abdomen Limited) RUQ pain Report CLINICAL INFORMATION: Right upper quadrant pain Sonogram of the right upper quadrant is performed. Comparison CT from earlier today. The liver is fatty in echotexture. No hyper or hypo echoic masses are seen. There is no intrahepatic biliary ductal dilatation. The gallbladder is normally distended. There are no gallstones, internal echoes, wall thickening, or pericholecystic fluid collections. The common bile duct diameter of 2.6 mm is within normal limits. The pancreas is partially obscured by bowel gas. No obvious pancreatic mass or peripancreatic fluid collection is identified. Cursory examination of the right kidney is performed. The right renal length is 10.3 cm. There is no hydronephrosis with multiple cortical cysts largest 2.2 cm. There is no ascites in the right upper quadrant. IMPRESSION: Unremarkable ultrasound of the right upper quadrant of the abdomen as discussed (slightly fatty liver, right renal cysts). Report Dictated on --- Final --- Dictating Physician: MD KELLY WILLIAM Signed Date and Time: 10/01/2021 6:31 pm Signed by: MD KELLY WILLIAM Transcribed Date and Time: 10/01/2021 6:32 [facility] RAD Ashok Kelly MD - 10/01/2021 [id number] Ul[facility]ound ACCESSION EXAM DATE/TIME PROCEDURE ORDERING PROVIDER [id number] 10/01/2021 17:40 EDT US Abdomen Limited MD CH DAVID L CPT code 19718 Reason For Exam (US Abdomen Limited) RUQ pain Report CLINICAL INFORMATION: Right upper quadrant pain Sonogram of the right upper quadrant is performed. Comparison CT from earlier today. The liver is fatty in echotexture. No hyper or hypo echoic masses are seen. There is no intrahepatic biliary ductal dilatation. The gallbladder is normally distended. There are no gallstones, internal echoes, wall thickening, or pericholecystic fluid collections. The common bile duct diameter of 2.6 mm is within normal limits. The pancreas is partially obscured by bowel gas. No obvious pancreatic mass or peripancreatic fluid collection is identified. Cursory examination of the right kidney is performed. The right renal length is 10.3 cm. There is no hydronephrosis with multiple cortical cysts largest 2.2 cm. There is no ascites in the right upper quadrant. IMPRESSION: Unremarkable ultrasound of the right upper quadrant of the abdomen as discussed (slightly fatty liver, right renal cysts). Report Dictated on --- Final --- Dictating Physician: MD KELLY WILLIAM Signed Date and Time: 10/01/2021 6:31 pm Signed by: MD KELLY WILLIAM Transcribed Date and Time: 10/01/2021 6:32 [facility] Work Phone: Radiology Study observation (narrative) [facility] Work Phone: US ABDOMEN LIMITED Specify o rgan? GALLBLADDEROrdered By: Ashok Kelly on 10-01-2021 [facility] Work Phone: US Abdomen Limitedon 022 US Abdomen Limited Patient Name: CATARINA BOYER Ultrasound ACCESSION EXAM DATE/TIME PROCEDURE ORDERING PROVIDER [id number] 10/01/2021 17:40 EDT US Abdomen Limited MD DIMA, ANGEL Harris CPT code 47211 Reason For Exam (US Abdomen Limited) RUQ pain Report CLINICAL INFORMATION: Right upper quadrant pain Sonogram of the right upper quadrant is performed. Comparison CT from earlier today. The liver is fatty in echotexture. No hyper or hypo echoic masses are seen. There is no intrahepatic biliary ductal dilatation. The gallbladder is normally distended. There are no gallstones, internal echoes, wall thickening, or pericholecystic fluid collections. The common bile duct diameter of 2.6 mm is within normal limits. The pancreas is partially obscured by bowel gas. No obvious pancreatic mass or peripancreatic fluid collection is identified. Cursory examination of the right kidney is performed. The right renal length is 10.3 cm. There is no hydronephrosis with multiple cortical cysts largest 2.2 cm. There is no ascites in the right upper quadrant. IMPRESSION: Unremarkable ultrasound of the right upper quadrant of the abdomen as discussed (slightly fatty liver, right renal cysts). Report Dictated on Final Dictating Physician: MD KELLY WILLIAM Signed Date and Time: 10/01/2021 6:31 pm Signed by: MD KELLY WILLIAM Transcribed Date and Time: 10/01/2021 6:32 Normal [facility] Urinalysison 10-01-2021 Appearance (U) Clear Clear NA [facility] Work Phone: Comment on above: . Bacteria, UA Negative Negative /[HPF] [facility] Work Phone: Comment on above: . Bilirubin Urine Negative Negative mg/dL [facility] Work Phone: Comment on above: . Color (U) LIGHT YELLOW Lt. Yellow NA [facility] Work Phone: Comment on above: . Glucose, Ur Normal Normal (<70) mg/dL [facility] Work Phone: Comment on above: . Interpretation and review of laboratory results Abnormal [facility] Work Phone: Ketones Ql (U) Negative Negative mg/dL [facility] Work Phone: Comment on above: . LEUKOCYTES, UA Negative Negative [place]/uL [facility] Work Phone: Comment on above: . Nitrite, Urine Negative Negative NA [facility] Work Phone: Comment on above: . Occult Blood,Urine Negative Negative mg/dL [facility] Work Phone: Comment on above: . pH (U) 6.0 [pH] [facility] Work Phone: Comment on above: . Protein (U) [Mass/Vol] 100 mg/dL Abnormal Negative [facility] Work Phone: Comment on above: . RBC, UA 0-2 0 - 2 /[HPF] [facility] Work Phone: Comment on above: . Specific [place], Urine 1.007 S [facility] Work Phone: Comment on above: . Squam Epithel, UA 3-5 3 - 5 /[HPF] [facility] Work Phone: Comment on above: . Urobilinogen, Urine Normal Normal ( 0-1) mg/dL [facility] Work Phone: Comment on above: . Volume 12 ml [facility] Work Phone: Comment on above: . WBC, UA 3-5 0 - 5 /[HPF] [facility] Work Phone: Comment on above: . Test Performed by [facility], [address] , [place], [place] [id number] [place] [address] LAB [facility] Work Phone: CBC with Auto Differentialon 07-21-2021 Absolute Baso # 0.1 10*3/uL 0.0 - 0.2 10*3/uL [facility] Absolute Neut # 4.3 10*3/uL 1.8 - 7.0 10*3/uL [facility] Basophils/100 WBC (Bld) 1.0 % 0.0 - 2.0 % [facility] Eosinophils (Bld) [#/Vol] 0.1 10*3/uL 0.0 - 0.5 10*3/uL [facility] Eosinophils/100 WBC (Bld) 1.3 % 1.0 - 6.0 % [facility] Granulocytes/100 WBC (Bld) 58.4 % 40.0 - 80.0 % [facility] Hematocrit (Bld) [Volume fraction] 30.2 % Low 35.0 - 47.0 % [facility] Hemoglobin.gastrointest inal spec 1 Ql (Stl) 10.0 g/dL Low 11.7 - 16.0 g/dL [facility] Interpretation and review of laboratory results Abnormal [facility] Lymphocytes (Bld) [#/Vol] 2.4 10*3/uL 1.0 - 4.3 10*3/uL [facility] Lymphocytes/100 WBC (Bld) 32.2 % 20.0 - 40.0 % [facility] MCH (RBC) [Entitic mass] 28.6 pg 26.0 - 34.0 pg [facility] MCHC (RBC) [Mass/Vol] 33.0 % 32.0 - 36.0 % [facility] MCV (RBC) [Entitic vol] 86.7 fL 79.0 - 98.0 fL [facility] Monocytes (Bld) [#/Vol] 0.5 10*3/uL 0.0 - 0.8 10*3/uL [facility] Monocytes/100 WBC (Bld) 7.1 % 2.0 - 10.0 % [facility] Platelet distribution width (Bld) [Ratio] 14.1 % 11.5 - 14.5 % [facility] Platelet mean volume (Bld) [Entitic vol] 8.5 fL 7.4 - 10.4 fL [facility] Platelets (Bld) [#/Vol] 286 10*3/uL 140 - 440 10*3/uL [facility] RBC (Bld) [#/Vol] 3.49 10*6/uL Low 3.80 - 5.2 0 10*6/uL [facility] WBC (Bld) [#/Vol] 7.5 10*3/uL 3.6 - 10.7 10*3/uL [facility] Test Performed by [facility], [address] [place] [address] [facility] LAB [facility] Comp Panel with Mg Reflexon 07-21-2021 ALP [Catalytic activity/Vol] 101 U/L Normal 38-126 [facility] Comment on above: Performed By: #### M G3, TSH5, CMP3M, HEMDF #### [facility] [address] [place] [address] ALT [Catalytic activity/Vol] 9 U/L Normal 0-34 [facility] Comment on above: Result Comment: The ALT test is performed by an updated assay method. Please note that the reference intervals have been changed and are now sex specific. Performed By: #### M G3, TSH5, CMP3M, HEMDF #### [facility] [address] [place] [address] Calcium [Mass/Vol] 9.5 mg/dL Normal 8.4-10.4 [facility] Comment on above: Performed By: #### M G3, TSH5, CMP3M, HEMDF #### [facility] [address] [place] [address] Glucose [Mass/Vol] 94 mg/dL Normal 70-100 [facility] Comment on above: Performed By: #### M G3, TSH5, CMP3M, HEMDF #### [facility] [address] [place] [address] Anion gap [Moles/Vol] 7 mmol/L Normal 3-13 [facility] Comment on above: Performed By: #### M G3, TSH5, CMP3M, HEMDF #### [facility] [address] [place] [address] AST [Catalytic activity/Vol] 16 U/L Normal 15-46 [facility] Comment on above: Performed By: #### M G3, TSH5, CMP3M, HEMDF #### [facility] [address] [place] [address] Bilirubin [Mass/Vol] 0.4 mg/dL Normal 0.2-1.3 [facility] Comment on above: Performed By: #### M G3, TSH5, CMP3M, HEMDF #### [facility] [address] [place] [address] CO2 [Moles/Vol] 19 mmol/L Low 22-30 [facility] Comment on above: Performed By: #### M G3, TSH5, CMP3M, HEMDF #### [facility] [address] [place] [address] Creatinine [Mass/Vol] 2.27 mg/dL High 0.52-1.25 [facility] Comment on above: Performed By: #### M G3, TSH5, CMP3M, HEMDF #### [facility] [address] [place] [address] GFR/1.73 sq M.predicted among blacks MDRD (S/P/Bld) [Vol rate/Area] 26.4 mL/min/{1.73_m2} Abnormal >60 [facility] Comment on above: Performed By: #### M G3, TSH5, CMP3M, HEMDF #### [facility] [address] [place] [address] GFR/1.73 sq M.predicted among non-blacks MDRD (S/P/Bld) [Vol rate/Area] 22.8 mL/min/{1.73_m2} Abnormal >60 [facility] Comment on above: Result Comment: KDIG O guidelines provide the following GFR categories: Stage GFR(ml/min/1.73 m2) Terms G1 >=90 Normal or high G2 60-89 Mildly decreased* G3a 45-59 Mildly to moderately decreased G3b 30-44 Moderately to severely decreased G4 15-29 Severely decreased G5 <15 Kidney failure *Relative to young adult level. In the absence of evidence of kidney damage, neither GFR category G1 nor G2 fulfill the criteria for CKD. The CKD-EPI equation is validated in individuals 18 years of age and older. Currently the best equation for estimating glomerular filtration rate (GFR) from serum creatinine in children is the Bedside Chan equation. It is less accurate in patients with extremes of muscle mass, restriction of dietary protein, ingestion of creatine, extra-renal metabolism of creatinine, or treatment with medications that affect renal tubular creatinine secretion. Performed By: #### M G3, TSH5, CMP3M, HEMDF #### [facility] [address] [place] [address] Protein [Mass/Vol] 6.7 g/dL Normal 6.3-8.2 [facility] Comment on above: Performed By: #### M G3, TSH5, CMP3M, HEMDF #### [facility] [address] [place] [address] Urea nitrogen [Mass/Vol] 24 mg/dL High 9-20 [facility] Comment on above: Performed By: #### M G3, TSH5, CMP3M, HEMDF #### [facility] [address] [place] [address] Potassium [Moles/Vol] 5.5 mmol/L High 3.5-5.1 [facility] Comment on above: Performed By: #### M G3, TSH5, CMP3M, HEMDF #### [facility] [address] [place] [address] Sodium [Moles/Vol] 134 mmol/L Low 135-145 [facility] Comment on above: Performed By: #### M G3, TSH5, CMP3M, HEMDF #### [facility] [address] [place] [address] Albumin [Mass/Vol] 3.8 g/dL Normal 3.5-5.0 [facility] Comment on above: Performed By: #### M G3, TSH5, CMP3M, HEMDF #### [facility] [address] [place] [address] Chloride [Moles/Vol] 107 mmol/L Normal 98-107 [facility] Comment on above: Performed By: #### M G3, TSH5, CMP3M, HEMDF #### [facility] [address] [place] [address] Comprehensive Metabolic Pane l w/ Reflex to MGon 07-21-2021 Albumin [Mass/Vol] 3.8 g/dL 3.5 - 5.0 g/dL [facility] ALP (Bld) [Catalytic activity/Vol] 101 U/L 38 - 126 U/L [facility] ALT [Catalytic activity/Vol] 9 U/L 0 - 34 U/L [facility] Comment on above: The ALT test is perf ormed by an updated assay method. Please note that the reference intervals have been changed and are now sex specific. Anion gap [Moles/Vol] 7 mmol/L 3 - 13 mmol/L [facility] AST [Catalytic activity/Vol] 16 U/L 15 - 46 U/L [facility] Bilirubin [Mass/Vol] 0.4 mg/dL 0.2 - 1 .3 mg/dL [facility] Calcium [Mass/Vol] 9.5 mg/dL 8.4 - 10. 4 mg/dL [facility] Chloride [Moles/Vol] 107 mmol/L 98 - 10 7 mmol/L [facility] CO2 [Moles/Vol] 19 mmol/L Low 22 - 30 mmol/L [facility] Creatinine [Mass/Vol] 2.27 mg/dL High 0.52 - 1.25 mg/dL [facility] EGFR IF NonAfrican [place] 22.8 mL/min Abnormal >60 [facility] Comment on above: KDIGO guidelines pro vide the following GFR categories: Stage GFR(ml/min/1.73 m2) Terms G1 >=90 Normal or high G2 60-89 Mildly decreased* G3a 45-59 Mildly to moderately decreased G3b 30-44 Moderately to severely decreased G4 15-29 Severely decreased G5 <15 Kidney failure *Relative to young adult level. In the absence of evidence of kidney damage, neither GFR category G1 nor G2 fulfill the criteria for CKD. The CKD-EPI equation is validated in individuals 18 years of age and older. Currently the best equation for estimating glomerular filtration rate (GFR) from serum creatinine in children is the Bedside Chan equation. It is less accurate in patients with extremes of muscle mass, restriction of dietary protein, ingestion of creatine, extra-renal metabolism of creatinine, or treatment with medications that affect renal tubular creatinine secretion. Free PSA/Total PSA [Mass fraction] 6.7 g/dL 6.3 - 8.2 g/dL [facility] GFR/1.73 sq M.predicted among blacks MDRD (S/P/Bld) [Vol rate/Area] 26.4 mL/min/{1.73_m2} Abnormal >60 [facility] Glucose [Mass/Vol] 94 mg/dL 70 - 100 mg/dL [facility] Potassium [Moles/Vol] 5.5 mmol/L High 3.5 - 5.1 mmol/L [facility] Sodium [Moles/Vol] 134 mmol/L Low 135 - 145 mmol/L [facility] Urea nitrogen (BldV) [Mass/Vol] 24 mg/dL High 9 - 20 mg/dL [facility] ECHO Complete 2D W Doppler W Coloron 07-21-2021 TRANSTHORACIC ECHOCARDIOGRAM PATIENT: Catarina Boyer STUDY DATE: 07/21/2021 : 1960 AGE: 61 HT/WT: 160 cm (63 102.1 kg in) (224.5 lb) GENDER: F BP: 137 / 73 LOCATION: [facility] PATIENT Inpatient [facility] STATUS: *ORDERING PHYSICIAN: * Raoul *FELLOW: * Gian Jennings MD, MD *READING PHYSICIAN: * Barbara, *MATCHER OFFBEARER: * Kell Corrales MD RDCS,AE, PE, RVT -------- INDICATIONS: CP. -------- CONCLUSIONS SUMMARY: 1. Left ventricle: Average LV global longitudinal strain is -18. The cavity size is normal. Wall thickness is normal. Systolic function is by visual assessment. The estimated ejection fraction is 70%. There are no regional wall motion abnormalities. Left ventricular diastolic function parameters are normal. 2. Right ventricle: The cavity size is normal. Systolic function is normal. 3. Aortic valve: Probably trileaflet; mildly thickened, moderately calcified leaflets. There is no regurgitation. The mean systolic gradient is 9 mm Hg. Dimensionless index: 0.46. The valve area by the velocity-time integral method is 1.8 cm^2. -------- STUDY DATA: Complete transthoracic echocardiogram. Procedure: Image quality was adequate. M-mode, complete 2D, strain rate, complete spectral Doppler, and color flow Doppler images were acquired and archived for permanent storage and are available for subsequent review. Study status: Routine. Patient status: Inpatient. ECG RHYTHM: NSR -------- FINDINGS LEFT VENTRICLE: Average LV global longitudinal strain is -18. The cavity size is normal. Wall thickness is normal. Systolic function is by visual assessment. The estimated ejection fraction is 70%. There are no regional wall motion abnormalities. Left ventricular diastolic function parameters are normal. E/e' average: 6.6 This value generally correlates with a low(<8) wedge pressure. RIGHT VENTRICLE: The cavity size is normal. Systolic function is normal. VENTRICULAR SEPTUM: There is no evidence of a ventricular septal defect. LEFT ATRIUM: The atrium is mildly dilated. RIGHT ATRIUM: The atrium is normal in size. ATRIAL SEPTUM: Color Doppler shows no shunt. MITRAL VALVE: Structurally normal valve. Normal (thickness) leaflets. Doppler: There is no evidence for stenosis. There is trivial, less than 1+ regurgitation. The peak diastolic gradient is 2 mm Hg. AORTIC VALVE: Not well visualized. Probably trileaflet; mildly thickened, moderately calcified leaflets. Doppler: There is no regurgitation. Dimensionless index: 0.46. The valve area by the velocity-time integral method is 1.8 cm^2. The valve area index by the velocity-time integral method is 0.9 cm^2/m^2. The mean systolic gradient is 9 mm Hg. The peak systolic gradient is 19 mm Hg. The peak systolic velocity is 2.2 m/sec. TRICUSPID VALVE: Structurally normal valve. Normal thickness leaflets. Doppler: There is trivial, less than 1+ regurgitation. PULMONIC VALVE: Structurally normal valve. Doppler: There is no significant regurgitation. AORTA: The aorta is poorly visualized and normal. PULMONARY ARTERY: Main pulmonary artery: Normal. PERICARDIUM: There is no pericardial effusion. SYSTEMIC VEINS: Not well visualized. Inferior vena cava: The vessel is normal in size. The IVC collapses by greater than 50% with inspiration. -------- Measurements Left ventricle Value Reference GLS, 2D 17.84 % LV ID, ED 4.8 cm 3.8 - 5.2 LV ID, ES 2.9 cm 2.2 - 3.5 LV ID/bsa, ED 2.4 cm/m^2 2.3 - 3.1 LV ID/bsa, ES 1.4 cm/m^2 1.3 - 2.1 LV PW thickness, ED (H) 1.1 cm 0.6 - 0.9 LV PW/LV ID ratio, ED 0.24 LV wall mass (H) 178 g 66 - 150 LV wall mass/bsa 88 g/m^2 44 - 88 Stroke volume/bsa, 1-p A2C 48.5 ml/m^2 LV end-diastolic volume, 1-p A4C (H) 147 ml 48 - 140 LV end-systolic volume, 1-p A4C 40 ml 12 - 60 LV end-diastolic volume, 2-p (H) 153 ml 46 - 106 LV end-systolic volume, 2-p (more content not included)... [facility] CARDIOLOGY Savanna Jimenez MD - 07/21/2021 TRANSTHORACIC ECHOCARDIOGRAM PATIENT: Catarina Boyer STUDY DATE: 07/21/2021 [facility]#: [id number] : 1960 AGE: 61 HT/WT: 160 cm (63 102.1 kg in) (224.5 lb) GENDER: F BP: 137 / 73 LOCATION: [facility] PATIENT Inpatient [facility] STATUS: *ORDERING PHYSICIAN: * Raoul *FELLOW: * Gian Jennings MD, MD *READING PHYSICIAN: * Barbara, *MATCHER OFFBEARER: * Kell Corrales MD RDCS,AE, PE, RVT -------- INDICATIONS: CP. -------- CONCLUSIONS SUMMARY: 1. Left ventricle: Average LV global longitudinal strain is -18. The cavity size is normal. Wall thickness is normal. Systolic function is by visual assessment. The estimated ejection fraction is 70%. There are no regional wall motion abnormalities. Left ventricular diastolic function parameters are normal. 2. Right ventricle: The cavity size is normal. Systolic function is normal. 3. Aortic valve: Probably trileaflet; mildly thickened, moderately calcified leaflets. There is no regurgitation. The mean systolic gradient is 9 mm Hg. Dimensionless index: 0.46. The valve area by the velocity-time integral method is 1.8 cm^2. -------- STUDY DATA: Complete transthoracic echocardiogram. Procedure: Image quality was adequate. M-mode, complete 2D, strain rate, complete spectral Doppler, and color flow Doppler images were acquired and archived for permanent storage and are available for subsequent review. Study status: Routine. Patient status: Inpatient. ECG RHYTHM: NSR -------- FINDINGS LEFT VENTRICLE: Average LV global longitudinal strain is -18. The cavity size is normal. Wall thickness is normal. Systolic function is by visual assessment. The estimated ejection fraction is 70%. There are no regional wall motion abnormalities. Left ventricular diastolic function parameters are normal. E/e' average: 6.6 This value generally correlates with a low(<8) wedge pressure. RIGHT VENTRICLE: The cavity size is normal. Systolic function is normal. VENTRICULAR SEPTUM: There is no evidence of a ventricular septal defect. LEFT ATRIUM: The atrium is mildly dilated. RIGHT ATRIUM: The atrium is normal in size. ATRIAL SEPTUM: Color Doppler shows no shunt. MITRAL VALVE: Structurally normal valve. Normal (thickness) leaflets. Doppler: There is no evidence for stenosis. There is trivial, less than 1+ regurgitation. The peak diastolic gradient is 2 mm Hg. AORTIC VALVE: Not well visualized. Probably trileaflet; mildly thickened, moderately calcified leaflets. Doppler: There is no regurgitation. Dimensionless index: 0.46. The valve area by the velocity-time integral method is 1.8 cm^2. The valve area index by the velocity-time integral method is 0.9 cm^2/m^2. The mean systolic gradient is 9 mm Hg. The peak systolic gradient is 19 mm Hg. The peak systolic velocity is 2.2 m/sec. TRICUSPID VALVE: Structurally normal valve. Normal thickness leaflets. Doppler: There is trivial, less than 1+ regurgitation. PULMONIC VALVE: Structurally normal valve. Doppler: There is no significant regurgitation. AORTA: The aorta is poorly visualized and normal. PULMONARY ARTERY: Main pulmonary artery: Normal. PERICARDIUM: There is no pericardial effusion. SYSTEMIC VEINS: Not well visualized. Inferior vena cava: The vessel is normal in size. The IVC collapses by greater than 50% with inspiration. -------- Measurements Left ventricle Value Reference GLS, 2D 17.84 % LV ID, ED 4.8 cm 3.8 - 5.2 LV ID, ES 2.9 cm 2.2 - 3.5 LV ID/bsa, ED 2.4 cm/m^2 2.3 - 3.1 LV ID/bsa, ES 1.4 cm/m^2 1.3 - 2.1 LV PW thickness, ED (H) 1.1 cm 0.6 - 0.9 LV PW/LV ID ratio, ED 0.24 LV wall mass (H) 178 g 66 - 150 LV wall mass/bsa 88 g/m^2 44 - 88 Stroke volume/bsa, 1-p A2C 48.5 ml/m^2 LV end-diastolic volume, 1-p A4C (H) 147 ml 48 - 140 LV end-systolic volume, 1-p A4C 40 ml 12 - 60 LV end-diastolic volume, 2-p (H) 153 ml 46 - 106 LV end-systolic volume, 2-p (H) 43 ml 14 - 42 LV ejection fraction, 2-p 72 % 54 - 74 LV E/e', lateral 5.6 LV E/e', medial 7.9 LV E/e', average 6.6 Ventricular septum Value Reference IVS thickness, ED 0.9 cm 0.6 - 0.9 LVOT Value Reference LVOT ID, A-P 2.2 cm LVOT mean velocity, S 0.7 m/sec LVOT peak gradient, S 3 mm Hg Stroke volume (SV), LVOT DP 75 ml Stroke index (SV/bsa), LVOT DP 37 ml/m^2 Aortic valve Value Reference Aortic (more content not included)... 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1960 Requested By: ROSARIO DAVENPORT Order Number: [id number] Reading MD: Corey Catherine Measurements Intervals [place] Rate: 68 P: 6 GA: 148 QRS: 54 QRSD: 100 T: 67 QT: 380 QTc: 405 Interpretive Statements SINUS RHYTHM Electronically Signed On 07-21-2021 12:58:36 EDT by Corey Catherine [facility] Corey Catherine M D - 07/21/2021 blabfeed Test Date: 2021-07-20 Pat Name: CATARINA MILTON[facility] Department: 4S Room: 466 Gender: F Hair Salon Manager: ZL : 1960 Requested By: ROSARIO DAVENPORT Order Number: [id number] Reading : Corey Catherine Measurements Intervals [place] Rate: 68 P: 6 GA: 148 QRS: 54 QRSD: 100 T: 67 QT: 380 QTc: 405 Interpretive Statements SINUS RHYTHM Electronically Signed On 07-21-2021 12:58:36 EDT by Corey Catherine [employer] Work Phone: blabfeed Test Date: 2021-07-19 Pat Name: CATARINA DUMONT Department: 01 Room: 466 Gender: F 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: [id number] : 1960 Requested By: TOM NUNES Order Number: [id number] Reading MD: Stoney Maurice Measurements Intervals [place] Rate: 74 P: 10 GA: 136 QRS: 29 QRSD: 88 T: 54 QT: 360 QTc: 400 Interpretive Statements SINUS RHYTHM RSR' IN V1 OR V2, RIGHT VCD OR RVH Compared to ECG 11/18/2017 12:25:53 Right ventricular hypertrophy now present RSR' in V1 or V2 now present Electronically Signed On 07-21-2021 0:47:20 EDT by Stoney Maurice [facility] Work Phone: EKG 12 LeadOrdered By: Corey Catherine on 07-21-2021 [facility] Work Phone: EKG 12 LeadOrdered By: Stoney Maurice on 07-21-2021 [facility] Work Phone: Echo Complete w/wo Contrasto n 07-21-2021 Echo Complete w/wo Contrast Patient Name: CATARINA BOYER Ultrasound ACCESSION EXAM DATE/TIME PROCEDURE ORDERING PROVIDER [id number] 07/21/2021 09:35 EDT Echo Complete w/wo JOHN, RAOUL Contrast Reason For Exam (Echo Complete w/wo Contrast) cp Report TRANSTHORACIC ECHOCARDIOGRAM PATIENT: Catarina Boyer STUDY DATE: 07/21/2021 : 1960 AGE: 61 HT/WT: 160 cm (63 102.1 kg in) (224.5 lb) GENDER: F BP: 137 / 73 LOCATION: [facility] PATIENT [facility] STATUS: *ORDERING PHYSICIAN: * Raoul *FELLOW: * Gian Jennings MD, MD *READING PHYSICIAN: * Barbara, *MATCHER OFFBEARER: * Kell Corrales MD RDCS,AE, PE, RVT -------- INDICATIONS: CP. -------- CONCLUSIONS SUMMARY: 1. Left ventricle: Average LV global longitudinal strain is -18. The cavity size is normal. Wall thickness is normal. Systolic function is by visual assessment. The estimated ejection fraction is 70%. There are no regional wall motion abnormalities. Left ventricular diastolic function parameters are normal. 2. Right ventricle: The cavity size is normal. Systolic function is normal. 3. Aortic valve: Probably trileaflet; mildly thickened, moderately calcified leaflets. There is no regurgitation. The mean systolic gradient is 9 mm Hg. Dimensionless index: 0.46. The valve area by the velocity-time integral method is 1.8 cm^2. -------- STUDY DATA: Complete transthoracic echocardiogram. Procedure: Image quality was adequate. M-mode, complete 2D, strain rate, complete spectral Doppler, and color flow Doppler images were acquired and archived for permanent storage and are available for subsequent review. Study status: Routine. Patient status: Inpatient. ECG RHYTHM: NSR -------- FINDINGS Ultrasound Report LEFT VENTRICLE: Average LV global longitudinal strain is -18. The cavity size is normal. Wall thickness is normal. Systolic function is by visual assessment. The estimated ejection fraction is 70%. There are no regional wall motion abnormalities. Left ventricular diastolic function parameters are normal. E/e' average: 6.6 This value generally correlates with a low(<8) wedge pressure. RIGHT VENTRICLE: The cavity size is normal. Systolic function is normal. VENTRICULAR SEPTUM: There is no evidence of a ventricular septal defect. LEFT ATRIUM: The atrium is mildly dilated. RIGHT ATRIUM: The atrium is normal in size. ATRIAL SEPTUM: Color Doppler shows no shunt. MITRAL VALVE: Structurally normal valve. Normal (thickness) leaflets. Doppler: There is no evidence for stenosis. There is trivial, less than 1+ regurgitation. The peak diastolic gradient is 2 mm Hg. AORTIC VALVE: Not well visualized. Probably trileaflet; mildly thickened, moderately calcified leaflets. Doppler: There is no regurgitation. Dimensionless index: 0.46. The valve area by the velocity-time integral method is 1.8 cm^2. The valve area index by the velocity-time integral method is 0.9 cm^2/m^2. The mean systolic gradient is 9 mm Hg. The peak systolic gradient is 19 mm Hg. The peak systolic velocity is 2.2 m/sec. TRICUSPID VALVE: Structurally normal valve. Normal thickness leaflets. Doppler: There is trivial, less than 1+ regurgitation. PULMONIC VALVE: Structurally normal valve. Doppler: There is no significant regurgitation. AORTA: The aorta is poorly visualized and normal. PULMONARY ARTERY: Main pulmonary artery: Normal. PERICARDIUM: There is no pericardial effusion. SYSTEMIC VEINS: Not well visualized. Inferior vena cava: The vessel is normal in size. The IVC collapses by greater than 50% with inspiration. -------- Measurements Left ventricle Value Reference GLS, 2D 17.84 % LV ID, ED 4.8 cm 3.8 - 5.2 LV ID, ES 2.9 cm 2.2 - 3.5 LV ID/bsa, ED 2.4 cm/m^2 2.3 - 3.1 LV ID/bsa, ES 1.4 cm/m^2 1.3 - 2.1 LV PW thickness, ED (H) 1.1 cm 0.6 - 0.9 LV PW/LV ID ratio, ED 0.24 LV wall mass (H) 178 g 66 - 150 LV wall mass/bsa 88 g/m^2 44 - 88 Stroke volume/bsa, 1-p A2C 48.5 ml/m^2 LV end-diastolic volume, 1-p A4C (H) 147 ml 48 - 140 LV end-systolic volume, 1-p A4C 40 ml 12 - 60 LV end-diastolic volume, 2-p (H) 153 ml 46 - 106 LV end-systolic volume, 2-p (H) 43 ml 14 - 42 LV ejection fraction, 2-p 72 % 54 - 74 LV E/e', lateral 5.6 LV E/e', medial 7.9 LV E/e', average 6.6 Ventricular septum Value Reference IVS thickness, ED 0.9 cm 0.6 - 0.9 LVOT Value Reference LVOT ID, A-P 2.2 cm Ultrasound Report LVOT (more content not included)... Normal blabfeed Hemogram w/ Autodiffon 07-21 Abs Baso Cnt 0.1 10*3/uL Normal 0.0-0.2 [facility] Comment on above: Performed By: #### M G3, TSH5, CMP3M, HEMDF #### [facility] [address] [place] [address] Abs Neutrophile Cnt 4.3 10*3/uL Normal 1.8-7.0 [facility] Comment on above: Performed By: #### M G3, TSH5, CMP3M, HEMDF #### [facility] [address] [place] [address] Basophils/100 WBC (Bld) 1.0 % Normal 0.0-2.0 [facility] Comment on above: Performed By: #### M G3, TSH5, CMP3M, HEMDF #### [facility] [address] [place] [address] Eosinophils (Bld) [#/Vol] 0.1 10*3/uL Normal 0.0-0.5 [facility] Comment on above: Performed By: #### M G3, TSH5, CMP3M, HEMDF #### [facility] [address] [place] [address] Eosinophils/100 WBC (Bld) 1.3 % Normal 1.0-6.0 [facility] Comment on above: Performed By: #### M G3, TSH5, CMP3M, HEMDF #### [facility] [address] [place] [address] Erythrocyte distribution width (RBC) [Ratio] 14.1 % Normal 11.5-14.5 [facility] Comment on above: Performed By: #### M G3, TSH5, CMP3M, HEMDF #### [facility] [address] [place] [address] Granulocytes/100 WBC (Bld) 58.4 % Normal 40.0-80.0 [facility] Comment on above: Performed By: #### M G3, TSH5, CMP3M, HEMDF #### [facility] [address] [place] [address] Hematocrit (Bld) [Volume fraction] 30.2 % Low 35.0-47.0 [facility] Comment on above: Performed By: #### M G3, TSH5, CMP3M, HEMDF #### [facility] [address] [place] [address] Hemoglobin (Bld) [Mass/Vol] 10.0 g/dL Low 11.7-16.0 [facility] Comment on above: Performed By: #### M G3, TSH5, CMP3M, HEMDF #### [facility] [address] [place] [address] Lymphocytes (Bld) [#/Vol] 2.4 10*3/uL Normal 1.0-4.3 [facility] Comment on above: Performed By: #### M G3, TSH5, CMP3M, HEMDF #### [facility] [address] [place] [address] Lymphocytes/100 WBC (Bld) 32.2 % Normal 20.0-40.0 [facility] Comment on above: Performed By: #### M G3, TSH5, CMP3M, HEMDF #### [facility] [address] [place] [address] MCH (RBC) [Entitic mass] 28.6 pg Normal 26.0-34.0 [facility] Comment on above: Performed By: #### M G3, TSH5, CMP3M, HEMDF #### [facility] [address] [place] [address] MCHC 33.0 % Normal 32.0-36.0 [facility] Comment on above: Performed By: #### M G3, TSH5, CMP3M, HEMDF #### [facility] [address] [place] [address] MCV (RBC) [Entitic vol] 86.7 fL Normal 79.0-98.0 [facility] Comment on above: Performed By: #### M G3, TSH5, CMP3M, HEMDF #### [facility] [address] [place] [address] Monocytes (Bld) [#/Vol] 0.5 10*3/uL Normal 0.0-0.8 [facility] Comment on above: Performed By: #### M G3, TSH5, CMP3M, HEMDF #### [facility] [address] [place] [address] Monocytes/100 WBC (Bld) 7.1 % Normal 2.0-10.0 [facility] Comment on above: Performed By: #### M G3, TSH5, CMP3M, HEMDF #### [facility] [address] [place] [address] Platelet mean volume (Bld) [Entitic vol] 8.5 fL Normal 7.4-10.4 [facility] Comment on above: Performed By: #### M G3, TSH5, CMP3M, HEMDF #### [facility] [address] [place] [address] Platelets (Bld) [#/Vol] 286 10*3/uL Normal 140-440 [facility] Comment on above: Performed By: #### M G3, TSH5, CMP3M, HEMDF #### [facility] [address] [place] [address] RBC (Bld) [#/Vol] 3.49 10*6/uL Low 3.80-5.20 [facility] Comment on above: Performed By: #### M G3, TSH5, CMP3M, HEMDF #### [facility] [address] [place] [address] WBC (Bld) [#/Vol] 7.5 10*3/uL Normal 3.6-10.7 [facility] Comment on above: Performed By: #### Gideon G3, TSH5, CMP3M, HEMDF #### [facility] [address] [place] [address] Magnesiumon 07-21-2021 Magnesium [Mass/Vol] 1.4 mg/dL Low 1.6-2.3 [facility] Comment on above: Performed By: #### M G3, TSH5, CMP3M, HEMDF #### [facility] [address] [place] [address] Magnesium [Mass/Vol] 1.4 mg/dL Low 1.6 - 2 .3 mg/dL [facility] No Panel Informationon 07-21 Interpretation and review of laboratory results Abnormal [facility] Test Performed by [facility], [facility] [address] [place], [place] [address] [facility] TSHon 07-21-2021 TSH Qn 2.655 u[IU]/mL 0.465 - 4.680 u[IU]/mL [facility] Test Performed by [facility], [address] [place] [address] [facility] Thyroid Stim. Hormoneon 06-24 Thyroid Stim. Hormone 2.655 u[IU]/mL Normal 0.465-4.68 0 [facility] Comment on above: Performed By: #### M G3, TSH5, CMP3M, HEMDF #### [facility] [address] [place] [address] Basic Metabolic Panelon 06-24 Calcium [Mass/Vol] 9.0 mg/dL Normal 8.4-10.4 [facility] Comment on above: Performed By: #### B MP3, DDI2, TROPN, MG3, HEMDF #### [facility] [address] [place] [address] Glucose [Mass/Vol] 97 mg/dL Normal 70-100 [facility] Comment on above: Performed By: #### B MP3, DDI2, TROPN, MG3, HEMDF #### [facility] [address] [place] [address] Anion gap [Moles/Vol] 5 mmol/L Normal 3-13 [facility] Comment on above: Performed By: #### B MP3, DDI2, TROPN, MG3, HEMDF #### [facility] [address] [place] [address] CO2 [Moles/Vol] 21 mmol/L Low 22-30 [facility] Comment on above: Performed By: #### B MP3, DDI2, TROPN, MG3, HEMDF #### [facility] [address] [place] [address] Creatinine [Mass/Vol] 2.10 mg/dL High 0.52-1.25 [facility] Comment on above: Performed By: #### B MP3, DDI2, TROPN, MG3, HEMDF #### [facility] [address] [place] [address] GFR/1.73 sq M.predicted among blacks MDRD (S/P/Bld) [Vol rate/Area] 29.1 mL/min/{1.73_m2} Abnormal >60 [facility] Comment on above: Performed By: #### B MP3, DDI2, TROPN, MG3, HEMDF #### [facility] [employer] [facility] [address] [place] [address] GFR/1.73 sq M.predicted among non-blacks MDRD (S/P/Bld) [Vol rate/Area] 25.1 mL/min/{1.73_m2} Abnormal >60 [facility] Comment on above: Result Comment: KDIG O guidelines provide the following GFR categories: Stage GFR(ml/min/1.73 m2) Terms G1 >=90 Normal or high G2 60-89 Mildly decreased* G3a 45-59 Mildly to moderately decreased G3b 30-44 Moderately to severely decreased G4 15-29 Severely decreased G5 <15 Kidney failure *Relative to young adult level. In the absence of evidence of kidney damage, neither GFR category G1 nor G2 fulfill the criteria for CKD. The CKD-EPI equation is validated in individuals 18 years of age and older. Currently the best equation for estimating glomerular filtration rate (GFR) from serum creatinine in children is the Bedside Chan equation. It is less accurate in patients with extremes of muscle mass, restriction of dietary protein, ingestion of creatine, extra-renal metabolism of creatinine, or treatment with medications that affect renal tubular creatinine secretion. Performed By: #### B MP3, DDI2, TROPN, MG3, HEMDF #### [facility] [employer] [facility] [address] [place] [address] Urea nitrogen [Mass/Vol] 24 mg/dL High 9-20 [facility] Comment on above: Performed By: #### B MP3, DDI2, TROPN, MG3, HEMDF #### [facility] [employer] [facility] [address] [place] [address] Chloride [Moles/Vol] 110 mmol/L High 98-107 [facility] Comment on above: Performed By: #### B MP3, DDI2, TROPN, MG3, HEMDF #### [facility] [employer] [facility] [address] [place] [address] Potassium [Moles/Vol] 6.0 mmol/L High 3.5-5.1 [facility] Comment on above: Performed By: #### B MP3, DDI2, TROPN, MG3, HEMDF #### [facility] [address] [place] [address] Sodium [Moles/Vol] 136 mmol/L Normal 135-145 [facility] Comment on above: Performed By: #### B MP3, DDI2, TROPN, MG3, HEMDF #### [facility] [address] [place] [address] Anion gap [Moles/Vol] 5 mmol/L 3 - 13 mmol/L [facility] Calcium [Mass/Vol] 9.0 mg/dL 8.4 - 10. 4 mg/dL [facility] Chloride [Moles/Vol] 110 mmol/L High 98 - 10 7 mmol/L [facility] CO2 [Moles/Vol] 21 mmol/L Low 22 - 30 mmol/L [facility] Creatinine [Mass/Vol] 2.1 mg/dL High 0.52 - 1.25 mg/dL [facility] EGFR IF NonAfrican [place] 25.1 mL/min Abnormal >60 [facility] Comment on above: KDIGO guidelines pro vide the following GFR categories: Stage GFR(ml/min/1.73 m2) Terms G1 >=90 Normal or high G2 60-89 Mildly decreased* G3a 45-59 Mildly to moderately decreased G3b 30-44 Moderately to severely decreased G4 15-29 Severely decreased G5 <15 Kidney failure *Relative to young adult level. In the absence of evidence of kidney damage, neither GFR category G1 nor G2 fulfill the criteria for CKD. The CKD-EPI equation is validated in individuals 18 years of age and older. Currently the best equation for estimating glomerular filtration rate (GFR) from serum creatinine in children is the Bedside Chan equation. It is less accurate in patients with extremes of muscle mass, restriction of dietary protein, ingestion of creatine, extra-renal metabolism of creatinine, or treatment with medications that affect renal tubular creatinine secretion. GFR/1.73 sq M.predicted among blacks MDRD (S/P/Bld) [Vol rate/Area] 29.1 mL/min/{1.73_m2} Abnormal >60 [facility] Glucose [Mass/Vol] 97 mg/dL 70 - 100 mg/dL [facility] Potassium [Moles/Vol] 6.0 mmol/L High 3.5 - 5.1 mmol/L [facility] Sodium [Moles/Vol] 136 mmol/L 135 - 145 mmol/L [facility] Urea nitrogen (BldV) [Mass/Vol] 24 mg/dL High 9 - 20 mg/dL [facility] CBC with Auto Differentialon 07-20-2021 Absolute Baso # 0.1 10*3/uL 0.0 - 0.2 10*3/uL [facility] Absolute Neut # 4.4 10*3/uL 1.8 - 7.0 10*3/uL [facility] Basophils/100 WBC (Bld) 1.0 % 0.0 - 2.0 % [facility] Eosinophils (Bld) [#/Vol] 0.1 10*3/uL 0.0 - 0.5 10*3/uL [facility] Eosinophils/100 WBC (Bld) 1.5 % 1.0 - 6.0 % [facility] Granulocytes/100 WBC (Bld) 59.5 % 40.0 - 80.0 % [facility] Hematocrit (Bld) [Volume fraction] 29.6 % Low 35.0 - 47.0 % [facility] Hemoglobin.gastrointest inal spec 1 Ql (Stl) 9.9 g/dL Low 11.7 - 16.0 g/dL [facility] Interpretation and review of laboratory results Abnormal [facility] Lymphocytes (Bld) [#/Vol] 2.4 10*3/uL 1.0 - 4.3 10*3/uL [facility] Lymphocytes/100 WBC (Bld) 31.5 % 20.0 - 40.0 % [facility] MCH (RBC) [Entitic mass] 28.7 pg 26.0 - 34.0 pg [facility] MCHC (RBC) [Mass/Vol] 33.4 % 32.0 - 36.0 % [facility] MCV (RBC) [Entitic vol] 86.0 fL 79.0 - 98.0 fL [facility] Monocytes (Bld) [#/Vol] 0.5 10*3/uL 0.0 - 0.8 10*3/uL [facility] Monocytes/100 WBC (Bld) 6.5 % 2.0 - 10.0 % [facility] Platelet distribution width (Bld) [Ratio] 14.1 % 11.5 - 14.5 % [facility] Platelet mean volume (Bld) [Entitic vol] 8.7 fL 7.4 - 10.4 fL [facility] Platelets (Bld) [#/Vol] 293 10*3/uL 140 - 440 10*3/uL [facility] RBC (Bld) [#/Vol] 3.44 10*6/uL Low 3.80 - 5.2 0 10*6/uL [facility] WBC (Bld) [#/Vol] 7.5 10*3/uL 3.6 - 10.7 10*3/uL [facility] Test Performed by [facility], [address] [place], [place] [address] [facility] Absolute Baso # 0.0 10*3/uL 0.0 - 0.2 10*3/uL [facility] Absolute Neut # 5.1 10*3/uL 1.8 - 7.0 10*3/uL [facility] Basophils/100 WBC (Bld) 0.4 % 0.0 - 2.0 % [facility] Eosinophils (Bld) [#/Vol] 0.1 10*3/uL 0.0 - 0.5 10*3/uL [facility] Eosinophils/100 WBC (Bld) 1.1 % 1.0 - 6.0 % [facility] Granulocytes/100 WBC (Bld) 65.0 % 40.0 - 80.0 % [facility] Hematocrit (Bld) [Volume fraction] 30.9 % Low 35.0 - 47.0 % [facility] Hemoglobin.gastrointest inal spec 1 Ql (Stl) 10.4 g/dL Low 11.7 - 16.0 g/dL [facility] Interpretation and review of laboratory results Abnormal [facility] Lymphocytes (Bld) [#/Vol] 2.1 10*3/uL 1.0 - 4.3 10*3/uL [facility] Lymphocytes/100 WBC (Bld) 27.1 % 20.0 - 40.0 % [facility] MCH (RBC) [Entitic mass] 28.5 pg 26.0 - 34.0 pg [facility] MCHC (RBC) [Mass/Vol] 33.7 % 32.0 - 36.0 % [facility] MCV (RBC) [Entitic vol] 84.6 fL 79.0 - 98.0 fL [facility] Monocytes (Bld) [#/Vol] 0.5 10*3/uL 0.0 - 0.8 10*3/uL [facility] Monocytes/100 WBC (Bld) 6.4 % 2.0 - 10.0 % [facility] Platelet distribution width (Bld) [Ratio] 14.0 % 11.5 - 14.5 % [facility] Platelet mean volume (Bld) [Entitic vol] 8.7 fL 7.4 - 10.4 fL [facility] Platelets (Bld) [#/Vol] 313 10*3/uL 140 - 440 10*3/uL [facility] RBC (Bld) [#/Vol] 3.65 10*6/uL Low 3.80 - 5.2 0 10*6/uL [facility] WBC (Bld) [#/Vol] 7.8 10*3/uL 3.6 - 10.7 10*3/uL [facility] Test Performed by [facility], [address] [place] [id number] [place] [address] LAB [facility] CR Chest PA/LATon 07-20-2021 CR Chest PA/LAT Patient Name: CATARINA BOYER Diagnostic Radiology ACCESSION EXAM DATE/TIME PROCEDURE ORDERING PROVIDER [id number] 07/20/2021 01:03 EDT CR Chest PA and LAT [id number] -TOM NUNES CPT code 92500 Reason For Exam (CR Chest PA and LAT) palpitations Addendum ADDENDUM: For billing purposes only-this is a PA and lateral chest Report Dictated on Final Addendum Addendum Dictating Physician: MD KELLY WILLIAM Signed Date and Time: 08/11/2021 6:04 pm Signed by: MD KELLY WILLIAM Transcribed Date and Time: 08/11/2021 6:05 Report CHEST SINGLE VIEW CLINICAL INFORMATION: Palpitations A frontal view of the chest was obtained. No acute pulmonary disease is noted. The cardiovascular silhouette is within normal limits with calcified plaquing aorta. IMPRESSION: No acute pulmonary disease. Unchanged since 2018 exam Report Dictated on Final Dictating Physician: MD KELLY WILLIAM Signed Date and Time: 07/20/2021 1:31 am Signed by: MD KELLY WILLIAM Transcribed Date and Time: 07/20/2021 1:32 Report last revised on 08/11/2021 18:04 EDT by MD KELLY WILLIAM Normal [facility] Comp Panel with Mg Reflexon 07-20-2021 ALT [Catalytic activity/Vol] 10 U/L Normal 0-34 [facility] Comment on above: Result Comment: The ALT test is performed by an updated assay method. Please note that the reference intervals have been changed and are now sex specific. Performed By: #### B FGI #### [place] [address] [place], [place] #### FOCC #### [facility] [address] [place] [address] #### OVPO #### The performing lab is in the report. Calcium [Mass/Vol] 9.2 mg/dL Normal 8.4-10.4 [facility] Comment on above: Performed By: #### B FGI #### [facility] [address] [place], [place] #### FOCC #### [facility] [address] [place] [address] #### OVPO #### The performing lab is in the report. Glucose [Mass/Vol] 98 mg/dL Normal 70-100 [facility] Comment on above: Performed By: #### B FGI #### [facility] [address] [place], [place] #### FOCC #### [facility] [address] [place] [address] #### OVPO #### The performing lab is in the report. ALP [Catalytic activity/Vol] 101 U/L Normal 38-126 [facility] Comment on above: Performed By: #### B FGI #### [facility] [address] [place], [place] #### FOCC #### [facility] [address] [place] [address] #### OVPO #### The performing lab is in the report. Anion gap [Moles/Vol] 6 mmol/L Normal 3-13 [facility] Comment on above: Performed By: #### B FGI #### [facility] [address] [place], [place] #### FOCC #### [facility] [address] [place] [address] #### OVPO #### The performing lab is in the report. AST [Catalytic activity/Vol] 16 U/L Normal 15-46 [facility] Comment on above: Performed By: #### B FGI #### [place] [address] [place], [place] #### FOCC #### [facility] [address] [place] [address] #### OVPO #### The performing lab is in the report. Bilirubin [Mass/Vol] 0.4 mg/dL Normal 0.2-1.3 [facility] Comment on above: Performed By: #### B FGI #### [place] [address] [place], [place] #### FOCC #### [facility] [address] [place] [address] #### OVPO #### The performing lab is in the report. CO2 [Moles/Vol] 19 mmol/L Low 22-30 [facility] Comment on above: Performed By: #### B FGI #### [facility] [address] [place], [place] #### FOCC #### [facility] [address] [place] [address] #### OVPO #### The performing lab is in the report. Creatinine [Mass/Vol] 2.11 mg/dL High 0.52-1.25 [facility] Comment on above: Performed By: #### B FGI #### [address] [place], [place] #### FOCC #### [facility] [address] [place] [address] #### OVPO #### The performing lab is in the report. GFR/1.73 sq M.predicted among blacks MDRD (S/P/Bld) [Vol rate/Area] 28.9 mL/min/{1.73_m2} Abnormal >60 [facility] Comment on above: Performed By: #### B FGI #### [address] #### FOCC #### [facility] [address] [place] [address] #### OVPO #### The performing lab is in the report. GFR/1.73 sq M.predicted among non-blacks MDRD (S/P/Bld) [Vol rate/Area] 24.9 mL/min/{1.73_m2} Abnormal >60 [facility] Comment on above: Result Comment: KDIG O guidelines provide the following GFR categories: Stage GFR(ml/min/1.73 m2) Terms G1 >=90 Normal or high G2 60-89 Mildly decreased* G3a 45-59 Mildly to moderately decreased G3b 30-44 Moderately to severely decreased G4 15-29 Severely decreased G5 <15 Kidney failure *Relative to young adult level. In the absence of evidence of kidney damage, neither GFR category G1 nor G2 fulfill the criteria for CKD. The CKD-EPI equation is validated in individuals 18 years of age and older. Currently the best equation for estimating glomerular filtration rate (GFR) from serum creatinine in children is the Bedside Chan equation. It is less accurate in patients with extremes of muscle mass, restriction of dietary protein, ingestion of creatine, extra-renal metabolism of creatinine, or treatment with medications that affect renal tubular creatinine secretion. Performed By: #### B FGI #### [facility] [employer] [address] #### FOCC #### [facility] [address] [place] [address] #### OVPO #### The performing lab is in the report. Protein [Mass/Vol] 6.6 g/dL Normal 6.3-8.2 [facility] Comment on above: Performed By: #### B FGI #### [address] [place], [place] #### FOCC #### [facility] [address] [place] [address] #### OVPO #### The performing lab is in the report. Urea nitrogen [Mass/Vol] 22 mg/dL High 9-20 [facility] Comment on above: Performed By: #### B FGI #### [address] [place] #### FOCC #### [facility] [address] [place] [address] #### OVPO #### The performing lab is in the report. Potassium [Moles/Vol] 5.2 mmol/L High 3.5-5.1 [facility] Comment on above: Performed By: #### B FGI #### [address] [place] #### FOCC #### [facility] [address] [place] [address] #### OVPO #### The performing lab is in the report. Albumin [Mass/Vol] 3.9 g/dL Normal 3.5-5.0 [facility] Comment on above: Performed By: #### B FGI #### [address] [place] #### FOCC #### [facility] [address] [place] [address] #### OVPO #### The performing lab is in the report. Chloride [Moles/Vol] 109 mmol/L High 98-107 [facility] Comment on above: Performed By: #### B FGI #### [address] [place], [place] #### FOCC #### [facility] [address] [place] [address] #### OVPO #### The performing lab is in the report. Sodium [Moles/Vol] 134 mmol/L Low 135-145 [facility] Comment on above: Performed By: #### B FGI #### [facility] [address] [place] [address] #### FOCC #### [facility] [address] [place] [address] #### OVPO #### The performing lab is in the report. Comprehensive Metabolic Pane l w/ Reflex to MGon 07-20-2021 Albumin [Mass/Vol] 3.9 g/dL 3.5 - 5.0 g/dL [facility] ALP (Bld) [Catalytic activity/Vol] 101 U/L 38 - 126 U/L [facility] ALT [Catalytic activity/Vol] 10 U/L 0 - 34 U/L [facility] Comment on above: The ALT test is perf ormed by an updated assay method. Please note that the reference intervals have been changed and are now sex specific. Anion gap [Moles/Vol] 6 mmol/L 3 - 13 mmol/L [facility] AST [Catalytic activity/Vol] 16 U/L 15 - 46 U/L [facility] Bilirubin [Mass/Vol] 0.4 mg/dL 0.2 - 1 .3 mg/dL [facility] Calcium [Mass/Vol] 9.2 mg/dL 8.4 - 10. 4 mg/dL [facility] Chloride [Moles/Vol] 109 mmol/L High 98 - 10 7 mmol/L [facility] CO2 [Moles/Vol] 19 mmol/L Low 22 - 30 mmol/L [facility] Creatinine [Mass/Vol] 2.11 mg/dL High 0.52 - 1.25 mg/dL [facility] EGFR IF NonAfrican [place] 24.9 mL/min Abnormal >60 [facility] Comment on above: KDIGO guidelines pro vide the following GFR categories: Stage GFR(ml/min/1.73 m2) Terms G1 >=90 Normal or high G2 60-89 Mildly decreased* G3a 45-59 Mildly to moderately decreased G3b 30-44 Moderately to severely decreased G4 15-29 Severely decreased G5 <15 Kidney failure *Relative to young adult level. In the absence of evidence of kidney damage, neither GFR category G1 nor G2 fulfill the criteria for CKD. The CKD-EPI equation is validated in individuals 18 years of age and older. Currently the best equation for estimating glomerular filtration rate (GFR) from serum creatinine in children is the Bedside Chan equation. It is less accurate in patients with extremes of muscle mass, restriction of dietary protein, ingestion of creatine, extra-renal metabolism of creatinine, or treatment with medications that affect renal tubular creatinine secretion. Free PSA/Total PSA [Mass fraction] 6.6 g/dL 6.3 - 8.2 g/dL [facility] GFR/1.73 sq M.predicted among blacks MDRD (S/P/Bld) [Vol rate/Area] 28.9 mL/min/{1.73_m2} Abnormal >60 [facility] Glucose [Mass/Vol] 98 mg/dL 70 - 100 mg/dL [facility] Interpretation and review of laboratory results Abnormal [facility] Potassium [Moles/Vol] 5.2 mmol/L High 3.5 - 5.1 mmol/L [facility] Sodium [Moles/Vol] 134 mmol/L Low 135 - 145 mmol/L [facility] Urea nitrogen (BldV) [Mass/Vol] 22 mg/dL High 9 - 20 mg/dL [facility] D-Dimer, Innovanceon D-Dimer, Innovance 0.44 mg/L Normal <0.19-0.50 [facility] Comment on above: Result Comment: Inno scott D-Dimer values of <0.50 mg/L FEU can be used in combination with a pre-test probability model (e.g. Well's) to exclude pulmonary embolism (PE) disease, as well as an aid in the diagnosis of deep vein thrombosis (DVT). Performed By: #### B FGI #### [facility] [employer] [facility] [address] [place] [address] #### FOCC #### [facility] [employer] [facility] [address] [place] [address] #### OVPO #### The performing lab is in the report. D-Dimer, Quantitativeon 06-24 D-Dimer, Quant 0.44 mg/L <0.19 - 0.50 [facility] Comment on above: Innovance D-Dimer va lues of <0.50 mg/L FEU can be used in combination with a pre-test probability model (e.g. Well's) to exclude pulmonary embolism (PE) disease, as well as an aid in the diagnosis of deep vein thrombosis (DVT). Test Performed by [facility], [address] [place], [place] [address] [facility] ED Provider Noteon 2 ED Provider Note EMERGENCY DEPARTMENT ENCOUNTER Pt Name: Catarina Boyer Birthdate 1960 Date of evaluation: 07/19/2021 Provider: TOM NUNES MD CHIEF COMPLAINT Chief Complaint Patient presents with ? Chest Pain HISTORY OF PRESENT ILLNESS HPI Catarina Boyer is a 61 y.o. female who presents to the emergency department for eval of on and off heart palpitations for the past 3 days. She describes a sensation as feeling like her heart is beating hard in her chest. It lasts for several seconds at a time. No other assoc symptoms apart from a headache that came on 3 days ago feeling like she could feel her heartbeat in her head but that has since resolved. No chest pain, SOB, diaphoresis, nausea/vomiting. She started taking Veltassa yesterday on July 02. PMH includes hypertension, CKD and FSGS, hypomagnesemia, anemia of chronic disease, Smoker. Nursing Notes were reviewed. REVIEW OF SYSTEMS (2+ for level 4; 10+ for level 5) Review of Systems Constitutional: Negative for fever. HENT: Negative for rhinorrhea. Respiratory: Negative for shortness of breath. Cardiovascular: Positive for palpitations and leg swelling. Negative for chest pain. Gastrointestinal: Negative for nausea and vomiting. Genitourinary: Negative for dysuria. Musculoskeletal: Negative for myalgias. Skin: Negative for rash. Allergic/Immunologic: Negative for immunocompromised state. Neurological: Negative for light-headedness. PHYSICAL EXAM (up to 7 for level 4, 8 or more for level 5) ED Triage Vitals BP Temp Temp src Pulse Resp SpO2 Height Weight -- -- -- -- -- -- -- -- Physical Exam Vitals and nursing note reviewed. Constitutional: General: She is not in acute distress. Appearance: She is not ill-appearing. HENT: Head: Normocephalic. Mouth/Throat: Mouth: Mucous membranes are moist. Eyes: General: No scleral icterus. Cardiovascular: Rate and Rhythm: Regular rhythm. Heart sounds: Normal heart sounds. Pulmonary: Effort: Pulmonary effort is normal. No respiratory distress. Breath sounds: Normal breath sounds. No stridor. Abdominal: General: There is no distension. Palpations: Abdomen is soft. Tenderness: There is no abdominal tenderness. There is no right CVA tenderness or left CVA tenderness. Musculoskeletal: Cervical back: No rigidity. Right lower leg: No edema. Left lower leg: No edema. Skin: General: Skin is warm and dry. Neurological: Mental Status: She is alert. Mental status is at baseline. Psychiatric: Mood and Affect: Mood normal. Behavior: Behavior normal. EMERGENCY DEPARTMENT COURSE and DIFFERENTIAL DIAGNOSIS/MDM: Vitals: Vitals: 07/19/21 2348 07/20/21 0028 BP: 132/79 Pulse: 76 66 Resp: 16 Temp: 98.2 ?F (36.8 ?C) TempSrc: Oral SpO2: 95% 95% Weight: 102.1 kg (225 lb) Height: 5' 3 (1.6 m) Medications magnesium sulfate 2000 mg in 50 mL IVPB premix (2,000 mg IntraVENous New Bag 07/20/21 0110) sodium polystyrene (KAYEXALATE) 15 GM/60ML suspension 30 g (has no administration in time range) MDM Story does not sound very concerning for ACS and on this note her ECG showed no findings of acute ischemia and her troponin was normal. Her ECG showed no findings suggestive of hyperkalemia. Her D-dimer was normal. Her chest x-ray showed clear lung avalos per my evaluation of the x-ray. Her labs showed stable CKD but were concerning for hypomagnesemia of 1.0 and hyperkalemia of 6.0. Given the hyperkalemia and the report of palpitations, I feel that she would be best served observed in the hospital tonight on a architect. Ordered Kayexalate. I spoke with Dr. Goodman her primary physician who accepts the patient for further work-up and management. CONSULTS: None PROCEDURES: Unless otherwise noted below, none Procedures FINAL IMPRESSION 1. Palpitations 2. Hyperkalemia 3. Hypomagnesemia DISPOSITION/PLAN DISPOSITION Admitted 07/20/2021 01:22:48 AM PATIENT REFERRED TO: No follow-up provider specified. DISCHARGE MEDICATIONS: New Prescriptions No medications on file TOM NUNES MD (electronically signed) Emergency Medicine Tom Nunes MD 07/20/21 0123 Normal [facility] Hemogram w/ Autodiffon 07-20 Abs Baso Cnt 0.1 10*3/uL Normal 0.0-0.2 [facility] Comment on above: Performed By: #### B FGI #### [address] [place], [place] #### FOCC #### [facility] [address] [place] [address] #### OVPO #### The performing lab is in the report. Abs Neutrophile Cnt 4.4 10*3/uL Normal 1.8-7.0 [facility] Comment on above: Performed By: #### B FGI #### [address] #### FOCC #### [place] [address] #### OVPO #### The performing lab is in the report. Basophils/100 WBC (Bld) 1.0 % Normal 0.0-2.0 [facility] Comment on above: Performed By: #### B FGI #### [address] [address] [place] #### FOCC #### [facility] [address] [place] [address] #### OVPO #### The performing lab is in the report. Eosinophils (Bld) [#/Vol] 0.1 10*3/uL Normal 0.0-0.5 [facility] Comment on above: Performed By: #### B FGI #### [address] [address] [place] #### FOCC #### [facility] [address] [place] [address] #### OVPO #### The performing lab is in the report. Eosinophils/100 WBC (Bld) 1.5 % Normal 1.0-6.0 [facility] Comment on above: Performed By: #### B FGI #### [address] [place] #### FOCC #### [facility] [address] [address] #### OVPO #### The performing lab is in the report. Erythrocyte distribution width (RBC) [Ratio] 14.1 % Normal 11.5-14.5 [facility] Comment on above: Performed By: #### B FGI #### [address] [place] #### FOCC #### [address] [place] [address] #### OVPO #### The performing lab is in the report. Granulocytes/100 WBC (Bld) 59.5 % Normal 40.0-80.0 [facility] Comment on above: Performed By: #### B FGI #### [address] [place], [place] #### FOCC #### [place] [address] #### OVPO #### The performing lab is in the report. Hematocrit (Bld) [Volume fraction] 29.6 % Low 35.0-47.0 [facility] Comment on above: Performed By: #### B FGI #### [address] [address] [place] #### FOCC #### [facility] [address] [address] #### OVPO #### The performing lab is in the report. Hemoglobin (Bld) [Mass/Vol] 9.9 g/dL Low 11.7-16.0 [facility] Comment on above: Performed By: #### B FGI #### [address] [place] #### FOCC #### [facility] [address] [place] [address] #### OVPO #### The performing lab is in the report. Lymphocytes (Bld) [#/Vol] 2.4 10*3/uL Normal 1.0-4.3 [facility] Comment on above: Performed By: #### B FGI #### [address] [place] #### FOCC #### [facility] [address] [place] [address] #### OVPO #### The performing lab is in the report. Lymphocytes/100 WBC (Bld) 31.5 % Normal 20.0-40.0 [facility] Comment on above: Performed By: #### B FGI #### [address] [place] #### FOCC #### [facility] [address] [place] [address] #### OVPO #### The performing lab is in the report. MCH (RBC) [Entitic mass] 28.7 pg Normal 26.0-34.0 [facility] Comment on above: Performed By: #### B FGI #### [address] [place] #### FOCC #### [facility] [address] [place] [address] #### OVPO #### The performing lab is in the report. MCHC 33.4 % Normal 32.0-36.0 [facility] Comment on above: Performed By: #### B FGI #### [address] [place] #### FOCC #### [facility] [address] [place] [address] #### OVPO #### The performing lab is in the report. MCV (RBC) [Entitic vol] 86.0 fL Normal 79.0-98.0 [facility] Comment on above: Performed By: #### B FGI #### [address] [place] #### FOCC #### [address] [place] [address] #### OVPO #### The performing lab is in the report. Monocytes (Bld) [#/Vol] 0.5 10*3/uL Normal 0.0-0.8 [facility] Comment on above: Performed By: #### B FGI #### [address] [address] [place] #### FOCC #### [facility] [address] [place] [address] #### OVPO #### The performing lab is in the report. Monocytes/100 WBC (Bld) 6.5 % Normal 2.0-10.0 [facility] Comment on above: Performed By: #### B FGI #### [address] #### FOCC #### [place] [address] #### OVPO #### The performing lab is in the report. Platelet mean volume (Bld) [Entitic vol] 8.7 fL Normal 7.4-10.4 [facility] Comment on above: Performed By: #### B FGI #### [address] [place], [place] #### FOCC #### [place] [address] #### OVPO #### The performing lab is in the report. Platelets (Bld) [#/Vol] 293 10*3/uL Normal 140-440 [facility] Comment on above: Performed By: #### B FGI #### [address] [address] [place] #### FOCC #### [address] [place] [address] #### OVPO #### The performing lab is in the report. RBC (Bld) [#/Vol] 3.44 10*6/uL Low 3.80-5.20 [facility] Comment on above: Performed By: #### B FGI #### [facility] [address] [place] [place] [place] [address] #### FOCC #### [facility] [address] [place] [address] #### OVPO #### The performing lab is in the report. WBC (Bld) [#/Vol] 7.5 10*3/uL Normal 3.6-10.7 [facility] Comment on above: Performed By: #### B FGI #### [facility] [address] [place] [address] #### FOCC #### [facility] [address] [place] [address] #### OVPO #### The performing lab is in the report. Abs Baso Cnt 0.0 10*3/uL Normal 0.0-0.2 [facility] Comment on above: Performed By: #### B MP3, DDI2, TROPN, MG3, HEMDF #### [facility] [address] [place] [address] Abs Neutrophile Cnt 5.1 10*3/uL Normal 1.8-7.0 [facility] Comment on above: Performed By: #### B MP3, DDI2, TROPN, MG3, HEMDF #### [facility] [address] [place] [address] Basophils/100 WBC (Bld) 0.4 % Normal 0.0-2.0 [facility] Comment on above: Performed By: #### B MP3, DDI2, TROPN, MG3, HEMDF #### [facility] [address] [place] [address] Eosinophils (Bld) [#/Vol] 0.1 10*3/uL Normal 0.0-0.5 [facility] Comment on above: Performed By: #### B MP3, DDI2, TROPN, MG3, HEMDF #### [facility] [address] [place] [address] Eosinophils/100 WBC (Bld) 1.1 % Normal 1.0-6.0 [facility] Comment on above: Performed By: #### B MP3, DDI2, TROPN, MG3, HEMDF #### [facility] [address] [place] [address] Erythrocyte distribution width (RBC) [Ratio] 14.0 % Normal 11.5-14.5 [facility] Comment on above: Performed By: #### B MP3, DDI2, TROPN, MG3, HEMDF #### [facility] [address] [place] [address] Granulocytes/100 WBC (Bld) 65.0 % Normal 40.0-80.0 [facility] Comment on above: Performed By: #### B MP3, DDI2, TROPN, MG3, HEMDF #### [facility] [address] [place] [address] Hematocrit (Bld) [Volume fraction] 30.9 % Low 35.0-47.0 [facility] Comment on above: Performed By: #### B MP3, DDI2, TROPN, MG3, HEMDF #### [facility] [address] [place] [address] Hemoglobin (Bld) [Mass/Vol] 10.4 g/dL Low 11.7-16.0 [facility] Comment on above: Performed By: #### B MP3, DDI2, TROPN, MG3, HEMDF #### [facility] [address] [place] [address] Lymphocytes (Bld) [#/Vol] 2.1 10*3/uL Normal 1.0-4.3 [facility] Comment on above: Performed By: #### B MP3, DDI2, TROPN, MG3, HEMDF #### [facility] [address] [place] [address] Lymphocytes/100 WBC (Bld) 27.1 % Normal 20.0-40.0 [facility] Comment on above: Performed By: #### B MP3, DDI2, TROPN, MG3, HEMDF #### [facility] [address] [place] [address] MCH (RBC) [Entitic mass] 28.5 pg Normal 26.0-34.0 [facility] Comment on above: Performed By: #### B MP3, DDI2, TROPN, MG3, HEMDF #### [facility] [address] [place] [address] MCHC 33.7 % Normal 32.0-36.0 [facility] Comment on above: Performed By: #### B MP3, DDI2, TROPN, MG3, HEMDF #### [facility] [address] [place] [address] MCV (RBC) [Entitic vol] 84.6 fL Normal 79.0-98.0 [facility] Comment on above: Performed By: #### B MP3, DDI2, TROPN, MG3, HEMDF #### [facility] [address] [place] [address] Monocytes (Bld) [#/Vol] 0.5 10*3/uL Normal 0.0-0.8 [facility] Comment on above: Performed By: #### B MP3, DDI2, TROPN, MG3, HEMDF #### [facility] [address] [place] [address] Monocytes/100 WBC (Bld) 6.4 % Normal 2.0-10.0 [facility] Comment on above: Performed By: #### B MP3, DDI2, TROPN, MG3, HEMDF #### [facility] [address] [place] [address] Platelet mean volume (Bld) [Entitic vol] 8.7 fL Normal 7.4-10.4 [facility] Comment on above: Performed By: #### B MP3, DDI2, TROPN, MG3, HEMDF #### [facility] [address] [place] [address] Platelets (Bld) [#/Vol] 313 10*3/uL Normal 140-440 [facility] Comment on above: Performed By: #### B MP3, DDI2, TROPN, MG3, HEMDF #### [facility] [address] [place] [address] RBC (Bld) [#/Vol] 3.65 10*6/uL Low 3.80-5.20 [facility] Comment on above: Performed By: #### B MP3, DDI2, TROPN, MG3, HEMDF #### [facility] [address] [place] [address] WBC (Bld) [#/Vol] 7.8 10*3/uL Normal 3.6-10.7 [facility] Comment on above: Performed By: #### B MP3, DDI2, TROPN, MG3, HEMDF #### [facility] [address] [place] [address] Magnesiumon 07-20-2021 Magnesium [Mass/Vol] 1.6 mg/dL Normal 1.6-2.3 [facility] Comment on above: Performed By: #### B FGI #### [facility] [address] [place] [address] #### FOCC #### [facility] [address] [place] [address] #### OVPO #### The performing lab is in the report. Magnesium [Mass/Vol] 1.6 mg/dL 1.6 - 2 .3 mg/dL [facility] Magnesium [Mass/Vol] 1.0 mg/dL Low 1.6-2.3 [facility] Comment on above: Performed By: #### B FGI #### [facility] [address] [place] [address] #### FOCC #### [facility] [address] [place] [address] #### OVPO #### The performing lab is in the report. Magnesium [Mass/Vol] 1.0 mg/dL Low 1.6 - 2 .3 mg/dL [facility] No Panel Informationon 07-20 Test Performed by [facility], [facility] [address] LAB [facility] Interpretation and review of laboratory results Abnormal [facility] Test Performed by [facility], [address] LAB [facility] TSHon 07-20-2021 TSH Qn 2.059 u[IU]/mL 0.465 - 4.680 u[IU]/mL [facility] Test Performed by [facility], [address] LAB [facility] Thyroid Stim. Hormoneon - Thyroid Stim. Hormone 2.059 u[IU]/mL Normal 0.465-4.68 0 [facility] Comment on above: Performed By: #### B FGI #### [facility] [address] [place], [place] #### FOCC #### [facility] [address] [place] [address] #### OVPO #### The performing lab is in the report. Troponinon 07-20-2021 Troponin I.cardiac [Mass/Vol] ng/mL 0.000 - 0.034 ng/mL [facility] Comment on above: . Test Performed by [facility], [address] LAB [facility] Test Performed by [facility], [address] LAB [facility] Troponin I.cardiac [Mass/Vol] ng/mL 0.000 - 0.034 ng/mL [facility] Comment on above: . Test Performed by [facility], [address] LAB [facility] Troponin Ion 07-20-2021 Troponin I.cardiac [Mass/Vol] ng/mL Normal 0.000-0.034 [facility] Comment on above: Result Comment: . Performed By: #### B FGI #### [facility] [employer] [place] [address] [place], [place] #### FOCC #### [facility] [address] [place] [address] #### OVPO #### The performing lab is in the report. Troponin I.cardiac [Mass/Vol] ng/mL Normal 0.000-0.034 [facility] Comment on above: . Result Comment: . Performed By: #### B FGI #### [address] [address] [place], [place] #### FOCC #### [facility] [address] [place] [address] #### OVPO #### The performing lab is in the report. Troponin I.cardiac [Mass/Vol] ng/mL Normal 0.000-0.034 [facility] Comment on above: Result Comment: . Performed By: #### B FGI #### [facility] [address] [place], [place] #### FOCC #### [facility] [address] [place] [address] #### OVPO #### The performing lab is in the report. XR CHEST (2 VW)on 07-20-2021 Patient Name: CATARINA BOYER Diagnostic Radiology ACCESSION EXAM DATE/TIME PROCEDURE ORDERING PROVIDER [id number] 07/20/2021 01:03 EDT CR Chest PA & LAT 406154 -DES ANIS CPT code 91064 Reason For Exam (CR Chest PA & LAT) palpitations Report CHEST SINGLE VIEW CLINICAL INFORMATION: Palpitations A frontal view of the chest was obtained. No acute pulmonary disease is noted. The cardiovascular silhouette is within normal limits with calcified plaquing aorta. IMPRESSION: No acute pulmonary disease. Unchanged since 2018 exam Report Dictated on --- Final --- Dictating Physician: MD KELLY WILLIAM Signed Date and Time: 07/20/2021 1:31 am Signed by: MD KELLY WILLIAM Transcribed Date and Time: 07/20/2021 1:32 Ashok Llanos MD - 07/20/2021 Patient Name: CATARINA BOYER Diagnostic Radiology ACCESSION EXAM DATE/TIME PROCEDURE ORDERING PROVIDER [id number] 07/20/2021 01:03 EDT CR Chest PA & LAT [id number] -TOM NUNES CPT code 43796 Reason For Exam (CR Chest PA & LAT) palpitations Report CHEST SINGLE VIEW CLINICAL INFORMATION: Palpitations A frontal view of the chest was obtained. No acute pulmonary disease is noted. The cardiovascular silhouette is within normal limits with calcified plaquing aorta. IMPRESSION: No acute pulmonary disease. Unchanged since 2018 exam Report Dictated on --- Final --- Dictating Physician: MD KELLY WILLIAM Signed Date and Time: 07/20/2021 1:31 am Signed by: MD KELLY WILLIAM Transcribed Date and Time: 07/20/2021 1:32 [facility] Work Phone: Radiology Study observation (narrative) [facility] Work Phone: XR CHEST (2 VW)Ordered By: Libby Kelly on 07-20-2021 [facility] Work Phone: 25-Hydroxy D2+D3on 2 25-Hydroxy D Total 43.9 ng/mL Normal 30.0-100.0 [facility] Reference Lab Comment on above: Performed By: #### D 2D3 #### [facility] Chemistry [address] [phone] #### CBC, RFP, MG1, PTHI, UACR #### [facility] Routine Lab [address] [place] [phone] 25-Hydroxy D2 43.9 ng/mL Normal [facility] Reference Lab Comment on above: Performed By: #### D 2D3 #### [facility] Chemistry [address] [phone] #### CBC, RFP, MG1, PTHI, UACR #### [facility] Routine Lab [address] [phone] 25-Hydroxy D3 <5.[address] [facility] Reference Lab Comment on above: Performed By: #### D 2D3 #### [facility] Chemistry [address] [phone] #### CBC, RFP, MG1, PTHI, UACR #### [facility] Routine Lab [address] [address] Albumin/Creat Ratioon 2021 Albumin Urine Random 235.1 mg/L Normal [facility] Reference Lab Comment on above: Performed By: #### D 2D3 #### [facility] Chemistry [address] [place], [place] [address] #### CBC, RFP, MG1, PTHI, UACR #### [facility] Routine Lab [address] [address] Albumin/Creat Ratio 1130 mg/g High <30 [facility] Reference Lab Comment on above: Performed By: #### D 2D3 #### [facility] Chemistry [address] [place] [address] #### CBC, RFP, MG1, PTHI, UACR #### [facility] Routine Lab [address] [address] Creatinine,Urine,Ran 20.8 mg/dL Normal 20-300 [facility] Reference Lab Comment on above: Performed By: #### D 2D3 #### [facility] Chemistry [address] [place], [place] [address] #### CBC, RFP, MG1, PTHI, UACR #### [facility] Routine Lab [address] [place], [place] [address] CBCon 06-04-2021 Absolute nRBC <0.01 Normal <0.[address] [facility] Reference Lab Comment on above: Performed By: #### D 2D3 #### [facility] Chemistry [address] [place] [address] #### CBC, RFP, MG1, PTHI, UACR #### [facility] Routine Lab [address] [place], [place] [address] Erythrocyte distribution width (RBC) [Ratio] 14.0 % Normal 11.5-15.[address] [facility] Reference Lab Comment on above: Performed By: #### D 2D3 #### [facility] Chemistry [address] [place] [phone] #### CBC, RFP, MG1, PTHI, UACR #### [facility] Routine Lab [address] [place] [phone] Hematocrit (Bld) [Volume fraction] 36.0 % Normal 36.0-46.[address] [facility] Reference Lab Comment on above: Performed By: #### D 2D3 #### [facility] [address] [place] [phone] #### CBC, RFP, MG1, PTHI, UACR #### [facility] Routine Lab [address] [place] [phone] Hemoglobin (Bld) [Mass/Vol] 10.9 g/dL Low 11.5-15.[address] [facility] Reference Lab Comment on above: Performed By: #### D 2D3 #### [facility] Chemistry [address] [place] [phone] #### CBC, RFP, MG1, PTHI, UACR #### [facility] Routine Lab [address] [place] [phone] MCH 28.3 pG Normal 26.0-34.[address] [facility] Reference Lab Comment on above: Performed By: #### D 2D3 #### [facility] Chemistry [address] [place] [phone] #### CBC, RFP, MG1, PTHI, UACR #### [facility] Routine Lab [address] [place] [phone] MCHC (RBC) [Mass/Vol] 30.3 g/dL Low 30.5-36.0 [facility] Reference Lab Comment on above: Performed By: #### D 2D3 #### [facility] Chemistry [address] [place] [phone] #### CBC, RFP, MG1, PTHI, UACR #### [facility] Routine Lab [address] [place], [place] [address] MCV (RBC) [Entitic vol] 93.5 fL Normal 80.0-100.0 [facility] Reference Lab Comment on above: Performed By: #### D 2D3 #### [facility] Chemistry [address] [place] [address] #### CBC, RFP, MG1, PTHI, UACR #### [facility] Routine Lab [address] [place], [place] [address] Platelet mean volume (Bld) [Entitic vol] 11.0 fL Normal 9.0-12.[address] [facility] Reference Lab Comment on above: Performed By: #### D 2D3 #### [facility] Chemistry [address] [place] [address] #### CBC, RFP, MG1, PTHI, UACR #### [facility] Routine Lab [address] [place], [place] [address] Platelets (Bld) [#/Vol] 326 10*3/uL Normal 150-[address] [facility] Reference Lab Comment on above: Performed By: #### D 2D3 #### [facility] Chemistry [address] [place] [address] #### CBC, RFP, MG1, PTHI, UACR #### [facility] Routine Lab [address] [place] [address] RBC (Bld) [#/Vol] 3.85 10*6/uL Low 3.90-5.20 [facility] Reference Lab Comment on above: Performed By: #### D 2D3 #### [facility] Chemistry [address] [place] [address] #### CBC, RFP, MG1, PTHI, UACR #### [facility] Routine Lab [address] [place], [place] [address] WBC (Bld) [#/Vol] 9.61 10*3/uL Normal 3.70-11.00 [facility] Reference Lab Comment on above: Performed By: #### D 2D3 #### [facility] Chemistry [address] [place] [phone] #### CBC, RFP, MG1, PTHI, UACR #### [facility] Routine Lab [address] [address] Magnesiumon 06-04-2021 Magnesium [Mass/Vol] 1.1 mg/dL Low 1.7-2.3 [facility] Reference Lab Comment on above: Performed By: #### D 2D3 #### [facility] Chemistry [address] [place] [address] #### CBC, RFP, MG1, PTHI, UACR #### [facility] Routine Lab [address] [place] [address] PTH, Intacton 06-04-2021 PTH, Intact 352 pg/mL High 15-[address] [facility] Reference Lab Comment on above: Performed By: #### D 2D3 #### [facility] Chemistry [address] [place] [address] #### CBC, RFP, MG1, PTHI, UACR #### [facility] Routine Lab [address] [place], [place] [phone] Renal Function Panelon 06-04 Potassium Critically high 3.7-5.[address] [facility] Reference Lab Comment on above: Result Comment: 6.1 Called to and read back by: Ramu Falcon M.D. [facility] 06/04/21 Louise Weeks Performed By: #### D 2D3 #### [facility] Chemistry [address] [place], [place] [phone] #### CBC, RFP, MG1, PTHI, UACR #### [facility] Routine Lab [address] [place], [place] [phone] Albumin [Mass/Vol] 4.3 g/dL Normal 3.9-4.9 [facility] Reference Lab Comment on above: Performed By: #### D 2D3 #### [facility] Chemistry [address] [address] #### CBC, RFP, MG1, PTHI, UACR #### [facility] Routine Lab [address] [address] Anion gap [Moles/Vol] 12 mmol/L Normal 9-18 [facility] Reference Lab Comment on above: Performed By: #### D 2D3 #### [facility] Chemistry [address] [place] [address] #### CBC, RFP, MG1, PTHI, UACR #### [facility] Routine Lab [address] [place] [address] Calcium [Mass/Vol] 9.8 mg/dL Normal 8.5-10.2 [facility] Reference Lab Comment on above: Performed By: #### D 2D3 #### [facility] Chemistry [address] [address] #### CBC, RFP, MG1, PTHI, UACR #### [facility] Routine Lab [address] [address] Chloride [Moles/Vol] 101 mmol/L Normal 97-105 [facility] Reference Lab Comment on above: Performed By: #### D 2D3 #### [facility] Chemistry [address] [address] #### CBC, RFP, MG1, PTHI, UACR #### [facility] Routine Lab [address] [address] CO2 [Moles/Vol] 18 mmol/L Low 22-[address] [facility] Reference Lab Comment on above: Performed By: #### D 2D3 #### [facility] Chemistry [address] [place], [place] [address] #### CBC, RFP, MG1, PTHI, UACR #### [facility] Routine Lab [address] [place], [place] [address] Creatinine [Mass/Vol] 2.28 mg/dL High 0.58-0.96 [facility] Reference Lab Comment on above: Performed By: #### D 2D3 #### [facility] Chemistry [address] [place] [address] #### CBC, RFP, MG1, PTHI, UACR #### [facility] Routine Lab [address] [address] eGFR- Amer. 27 Normal [facility] Reference Lab Comment on above: Performed By: #### D 2D3 #### [facility] Chemistry [address] [place] [address] #### CBC, RFP, MG1, PTHI, UACR #### [facility] Routine Lab [address] [place] [address] eGFR-All Other Races 22 . Normal [facility] Reference Lab Comment on above: Performed By: #### D 2D3 #### [facility] Chemistry [address] [place] [address] #### CBC, RFP, MG1, PTHI, UACR #### [facility] Routine Lab [address] [place] [phone] Glucose [Mass/Vol] 85 mg/dL Normal 74-99 [facility] Reference Lab Comment on above: Performed By: #### D 2D3 #### [facility] Chemistry [address] [place] [address] #### CBC, RFP, MG1, PTHI, UACR #### [facility] Routine Lab [address] [place] [address] Phosphate [Mass/Vol] 3.9 mg/dL Normal 2.7-4.8 [facility] Reference Lab Comment on above: Performed By: #### D 2D3 #### [facility] Chemistry [address] [place], [place] [address] #### CBC, RFP, MG1, PTHI, UACR #### [facility] Routine Lab [address] [place], [place] [address] Sodium [Moles/Vol] 131 mmol/L Low 136-144 [facility] Reference Lab Comment on above: Performed By: #### D 2D3 #### [facility] Chemistry [address] [place] [address] #### CBC, RFP, MG1, PTHI, UACR #### [facility] Routine Lab [address] [place] [address] Urea nitrogen [Mass/Vol] 36 mg/dL High 7-[address] [facility] Reference Lab Comment on above: Performed By: #### D 2D3 #### [facility] Chemistry [address] [address] #### CBC, RFP, MG1, PTHI, UACR #### [facility] Routine Lab [address] [place] [phone] Renal Function Panelon 03-19 Albumin [Mass/Vol] 4.4 g/dL Normal 3.9-4.9 [facility] Reference Lab Comment on above: Performed By: #### D 2D3 #### [facility] Chemistry [address] [place], [place] [address] #### CBC, RFP, MG1, PTHI, UACR #### [facility] Routine Lab [address] [place], [place] [address] Anion gap [Moles/Vol] 14 mmol/L Normal 9-18 [facility] Reference Lab Comment on above: Performed By: #### D 2D3 #### [facility] Chemistry [address] [address] #### CBC, RFP, MG1, PTHI, UACR #### [facility] Routine Lab [address] [address] Calcium [Mass/Vol] 9.9 mg/dL Normal 8.5-10.2 [facility] Reference Lab Comment on above: Performed By: #### D 2D3 #### [facility] Chemistry [address] [place] [address] #### CBC, RFP, MG1, PTHI, UACR #### [facility] Routine Lab [address] [place] [phone] Chloride [Moles/Vol] 105 mmol/L Normal 97-105 [facility] Reference Lab Comment on above: Performed By: #### D 2D3 #### [facility] Chemistry [address] [place] [phone] #### CBC, RFP, MG1, PTHI, UACR #### [facility] Routine Lab [address] [address] CO2 [Moles/Vol] 18 mmol/L Low 22-[address] [facility] Reference Lab Comment on above: Performed By: #### D 2D3 #### [facility] Chemistry [address] [place] [phone] #### CBC, RFP, MG1, PTHI, UACR #### [facility] Routine Lab [address] [address] Creatinine [Mass/Vol] 2.37 mg/dL High 0.58-0.96 [facility] Reference Lab Comment on above: Performed By: #### D 2D3 #### [facility] Chemistry [address] [place] [address] #### CBC, RFP, MG1, PTHI, UACR #### [facility] Routine Lab [address] [address] eGFR- Amer. 25 Normal [facility] Reference Lab Comment on above: Performed By: #### D 2D3 #### [facility] Chemistry [address] [address] #### CBC, RFP, MG1, PTHI, UACR #### [facility] Routine Lab [address] [address] eGFR-All Other Races 21 . Normal [facility] Reference Lab Comment on above: Performed By: #### D 2D3 #### [facility] Chemistry [address] [address] #### CBC, RFP, MG1, PTHI, UACR #### [facility] Routine Lab [address] [address] Glucose [Mass/Vol] 71 mg/dL Low 74-99 [facility] Reference Lab Comment on above: Performed By: #### D 2D3 #### [facility] Chemistry [address] [address] #### CBC, RFP, MG1, PTHI, UACR #### [facility] Routine Lab [address] [address] Phosphate [Mass/Vol] 3.6 mg/dL Normal 2.7-4.8 [facility] Reference Lab Comment on above: Performed By: #### D 2D3 #### [facility] Chemistry [address] [place] [phone] #### CBC, RFP, MG1, PTHI, UACR #### [facility] Routine Lab [address] [place] [address] Potassium [Moles/Vol] 5.4 mmol/L High 3.7-5.1 [facility] Reference Lab Comment on above: Performed By: #### D 2D3 #### [facility] Chemistry [address] [place] [address] #### CBC, RFP, MG1, PTHI, UACR #### [facility] Routine Lab [address] [place] [address] Sodium [Moles/Vol] 137 mmol/L Normal 136-144 [facility] Reference Lab Comment on above: Performed By: #### D 2D3 #### [facility] Chemistry [address] [place] [address] #### CBC, RFP, MG1, PTHI, UACR #### [facility] Routine Lab [address] [place] [address] Urea nitrogen [Mass/Vol] 30 mg/dL High 7-[address] [facility] Reference Lab Comment on above: Performed By: #### D 2D3 #### [facility] Chemistry [address] [place] [address] #### CBC, RFP, MG1, PTHI, UACR #### [facility] Routine Lab [address] [place] [address] 25-Hydroxy D2+D3on 1 25-Hydroxy D Total 28.9 ng/mL Low 30.0-100.0 [facility] Reference Lab Comment on above: Performed By: #### D 2D3 #### [facility] Chemistry [address] [place] [address] #### CBC, RFP, MG1, PTHI, UACR #### [facility] Routine Lab [address] [place] [address] 25-Hydroxy D2 28.9 ng/mL Normal [facility] Reference Lab Comment on above: Performed By: #### D 2D3 #### [facility] Chemistry [address] [place] [address] #### CBC, RFP, MG1, PTHI, UACR #### [facility] Routine Lab [address] [place] [address] 25-Hydroxy D3 <4.[address] [facility] Reference Lab Comment on above: Performed By: #### D 2D3 #### [facility] Chemistry [address] [address] #### CBC, RFP, MG1, PTHI, UACR #### [facility] Routine Lab [address] [address] Albumin/Creat Ratioon 2020 Albumin Urine Random 208.0 mg/L Normal [facility] Reference Lab Comment on above: Performed By: #### D 2D3 #### [facility] Chemistry [address] [place] [phone] #### CBC, RFP, MG1, PTHI, UACR #### [facility] Routine Lab [address] [place] [phone] Albumin/Creat Ratio 1189 mg/g High <30 [facility] Reference Lab Comment on above: Performed By: #### D 2D3 #### [facility] Chemistry [address] [place] [phone] #### CBC, RFP, MG1, PTHI, UACR #### [facility] Routine Lab [address] [address] Creatinine,Urine,Ran 17.5 mg/dL Low 20-300 [facility] Reference Lab Comment on above: Performed By: #### D 2D3 #### [facility] Chemistry [address] [phone] #### CBC, RFP, MG1, PTHI, UACR #### [facility] Routine Lab [address] [place] [address] CBCon 03-04-2021 Absolute nRBC <0.01 Normal <0.[address] [facility] Reference Lab Comment on above: Performed By: #### D 2D3 #### [facility] Chemistry [address] [address] #### CBC, RFP, MG1, PTHI, UACR #### [facility] Routine Lab [address] [place] [phone] Erythrocyte distribution width (RBC) [Ratio] 13.7 % Normal 11.5-15.[address] [facility] Reference Lab Comment on above: Performed By: #### D 2D3 #### [facility] Chemistry [address] [place] [phone] #### CBC, RFP, MG1, PTHI, UACR #### [facility] Routine Lab [address] [place] [phone] Hematocrit (Bld) [Volume fraction] 37.2 % Normal 36.0-46.[address] [facility] Reference Lab Comment on above: Performed By: #### D 2D3 #### [facility] Chemistry [address] [place] [phone] #### CBC, RFP, MG1, PTHI, UACR #### [facility] Routine Lab [address] [place] [phone] Hemoglobin (Bld) [Mass/Vol] 11.3 g/dL Low 11.5-15.[address] [facility] Reference Lab Comment on above: Performed By: #### D 2D3 #### [facility] Chemistry [address] [place] [phone] #### CBC, RFP, MG1, PTHI, UACR #### [facility] Routine Lab [address] [place] [phone] MCH 27.8 pG Normal 26.0-34.[address] [facility] Reference Lab Comment on above: Performed By: #### D 2D3 #### [facility] Chemistry [address] [place] [phone] #### CBC, RFP, MG1, PTHI, UACR #### [facility] Routine Lab [address] [place] [phone] MCHC (RBC) [Mass/Vol] 30.4 g/dL Low 30.5-36.0 [facility] Reference Lab Comment on above: Performed By: #### D 2D3 #### [facility] Chemistry [address] [place] [phone] #### CBC, RFP, MG1, PTHI, UACR #### [facility] Routine Lab [address] [address] MCV (RBC) [Entitic vol] 91.6 fL Normal 80.0-100.[address] [facility] Reference Lab Comment on above: Performed By: #### D 2D3 #### [facility] Chemistry [address] [place] [phone] #### CBC, RFP, MG1, PTHI, UACR #### [facility] Routine Lab [address] [place] [phone] Platelet mean volume (Bld) [Entitic vol] 11.8 fL Normal 9.0-12.[address] [facility] Reference Lab Comment on above: Performed By: #### D 2D3 #### [facility] Chemistry [address] [place] [phone] #### CBC, RFP, MG1, PTHI, UACR #### [facility] Routine Lab [address] [place] [address] Platelets (Bld) [#/Vol] 326 10*3/uL Normal 150-[address] [facility] Reference Lab Comment on above: Performed By: #### D 2D3 #### [facility] Chemistry [address] [place] [address] #### CBC, RFP, MG1, PTHI, UACR #### [facility] Routine Lab [address] [place] [address] RBC (Bld) [#/Vol] 4.06 10*6/uL Normal 3.90-5.20 [facility] Reference Lab Comment on above: Performed By: #### D 2D3 #### [facility] Chemistry [address] [place], [place] [phone] #### CBC, RFP, MG1, PTHI, UACR #### [facility] Routine Lab [address] [place], [place] [phone] WBC (Bld) [#/Vol] 8.88 10*3/uL Normal 3.70-11.00 [facility] Reference Lab Comment on above: Performed By: #### D 2D3 #### [facility] Chemistry [address] [place] [address] #### CBC, RFP, MG1, PTHI, UACR #### [facility] Routine Lab [address] [place] [phone] Magnesiumon 03-04-2021 Magnesium [Mass/Vol] 1.2 mg/dL Low 1.7-2.3 [facility] Reference Lab Comment on above: Performed By: #### D 2D3 #### [facility] Chemistry [address] [place] [address] #### CBC, RFP, MG1, PTHI, UACR #### [facility] Routine Lab [address] [place] [address] [id number] PTH, Intacton 03-04-2021 PTH, Intact 286 pg/mL High 15-[address] [facility] Reference Lab Comment on above: Performed By: #### D 2D3 #### [facility] Chemistry [address] [place] [address] [id number] #### CBC, RFP, MG1, PTHI, UACR #### [facility] Routine Lab [address] [place] [address] Renal Function Panelon 03-04 Albumin [Mass/Vol] 4.6 g/dL Normal 3.9-4.9 [facility] Reference Lab Comment on above: Performed By: #### D 2D3 #### [facility] Chemistry [address] [place] [address] [id number] #### CBC, RFP, MG1, PTHI, UACR #### [facility] Routine Lab [address] [place], [place] [phone] Anion gap [Moles/Vol] 12 mmol/L Normal 9-18 [facility] Reference Lab Comment on above: Performed By: #### D 2D3 #### [facility] Chemistry [address] [place], [place] [address] #### CBC, RFP, MG1, PTHI, UACR #### [facility] Routine Lab [address] [place], [place] [address] Calcium [Mass/Vol] 10.0 mg/dL Normal 8.5-10.2 [facility] Reference Lab Comment on above: Performed By: #### D 2D3 #### [facility] Chemistry [address] [place], [place] [address] #### CBC, RFP, MG1, PTHI, UACR #### [facility] Routine Lab [address] [place], [place] [address] Chloride [Moles/Vol] 102 mmol/L Normal 97-105 [facility] Reference Lab Comment on above: Performed By: #### D 2D3 #### [facility] Chemistry [address] [place], [place] [address] #### CBC, RFP, MG1, PTHI, UACR #### [facility] Routine Lab [address] [place], [place] [address] CO2 [Moles/Vol] 19 mmol/L Low 22-[address] [facility] Reference Lab Comment on above: Performed By: #### D 2D3 #### [facility] Chemistry [address] [place], [place] [address] #### CBC, RFP, MG1, PTHI, UACR #### [facility] Routine Lab [address] [place], [place] [address] Creatinine [Mass/Vol] 2.25 mg/dL High 0.58-0.96 [facility] Reference Lab Comment on above: Performed By: #### D 2D3 #### [facility] Chemistry [address] [place] [phone] #### CBC, RFP, MG1, PTHI, UACR #### [facility] Routine Lab [address] [place] [phone] eGFR- Amer. 27 Normal [facility] Reference Lab Comment on above: Performed By: #### D 2D3 #### [facility] Chemistry [address] [place] [phone] #### CBC, RFP, MG1, PTHI, UACR #### [facility] Routine Lab [address] [place] [address] eGFR-All Other Races 22 . Normal [facility] Reference Lab Comment on above: Performed By: #### D 2D3 #### [facility] Chemistry [address] [place] [phone] #### CBC, RFP, MG1, PTHI, UACR #### [facility] Routine Lab [address] [place] [address] Glucose [Mass/Vol] 63 mg/dL Low 74-99 [facility] Reference Lab Comment on above: Performed By: #### D 2D3 #### [facility] Chemistry [address] [place] [phone] #### CBC, RFP, MG1, PTHI, UACR #### [facility] Routine Lab [address] [place] [phone] Phosphate [Mass/Vol] 3.5 mg/dL Normal 2.7-4.8 [facility] Reference Lab Comment on above: Performed By: #### D 2D3 #### [facility] Chemistry [address] [place] [phone] #### CBC, RFP, MG1, PTHI, UACR #### [facility] Routine Lab [address] [place], [place] [address] Potassium [Moles/Vol] 5.5 mmol/L High 3.7-5.1 [facility] Reference Lab Comment on above: Performed By: #### D 2D3 #### [facility] Chemistry [address] [place], [place] [address] #### CBC, RFP, MG1, PTHI, UACR #### [facility] Routine Lab [address] [place], [place] [address] Sodium [Moles/Vol] 133 mmol/L Low 136-144 [facility] Reference Lab Comment on above: Performed By: #### D 2D3 #### [facility] Chemistry [address] [place], [place] [phone] #### CBC, RFP, MG1, PTHI, UACR #### [facility] Routine Lab [address] [place], [place] [address] Urea nitrogen [Mass/Vol] 30 mg/dL High - [facility] Reference Lab Comment on above: Performed By: #### D 2D3 #### [facility] Chemistry [address] [place], [place] [address] #### CBC, RFP, MG1, PTHI, UACR #### [facility] Routine Lab [address] [place] [address] Magnesiumon 11-11-2020 Magnesium Low 1.7-2.[address] [facility] Reference Lab Comment on above: Result Comment: 0.6 Called to and read back by: Dr Gilma Moreno [facility] 11/11/201957 Gilma Pulliam Performed By: #### D 2D3 #### [facility] Chemistry [address] [place], [place] [address] #### CBC, RFP, MG1, PTHI, UACR #### [facility] Routine Lab [address] [place] [phone] Renal Function Panelon 11-11 Albumin [Mass/Vol] 4.2 g/dL Normal 3.9-4.9 [facility] Reference Lab Comment on above: Performed By: #### D 2D3 #### [facility] Chemistry [address] [place], [place] [address] #### CBC, RFP, MG1, PTHI, UACR #### [facility] Routine Lab [address] [place] [phone] Anion gap [Moles/Vol] 16 mmol/L Normal 9-18 [facility] Reference Lab Comment on above: Performed By: #### D 2D3 #### [facility] Chemistry [address] [place] [address] #### CBC, RFP, MG1, PTHI, UACR #### [facility] Routine Lab [address] [place] [address] Calcium [Mass/Vol] 8.8 mg/dL Normal 8.5-10.2 [facility] Reference Lab Comment on above: Performed By: #### D 2D3 #### [facility] Chemistry [address] [place] [address] #### CBC, RFP, MG1, PTHI, UACR #### [facility] Routine Lab [address] [place], [place] [address] Chloride [Moles/Vol] 101 mmol/L Normal 97-105 [facility] Reference Lab Comment on above: Performed By: #### D 2D3 #### [facility] Chemistry [address] [place], [place] [address] #### CBC, RFP, MG1, PTHI, UACR #### [facility] Routine Lab [address] [place], [place] [address] CO2 [Moles/Vol] 17 mmol/L Low 22-[address] [facility] Reference Lab Comment on above: Performed By: #### D 2D3 #### [facility] Chemistry [address] [place], [place] [address] #### CBC, RFP, MG1, PTHI, UACR #### [facility] Routine Lab [address] [place], [place] [address] Creatinine [Mass/Vol] 2.01 mg/dL High 0.58-0.96 [facility] Reference Lab Comment on above: Performed By: #### D 2D3 #### [facility] Chemistry [address] [place] [address] #### CBC, RFP, MG1, PTHI, UACR #### [facility] Routine Lab [address] [place] [address] eGFR- Amer. 31 Normal [facility] Reference Lab Comment on above: Performed By: #### D 2D3 #### [facility] Chemistry [address] [place] [phone] #### CBC, RFP, MG1, PTHI, UACR #### [facility] Routine Lab [address] [place] [address] eGFR-All Other Races 25 . Normal [facility] Reference Lab Comment on above: Performed By: #### D 2D3 #### [facility] Chemistry [address] [place] [address] #### CBC, RFP, MG1, PTHI, UACR #### [facility] Routine Lab [address] [place], [place] [address] Glucose [Mass/Vol] 84 mg/dL Normal 74-99 [facility] Reference Lab Comment on above: Performed By: #### D 2D3 #### [facility] Chemistry [address] [place] [address] #### CBC, RFP, MG1, PTHI, UACR #### [facility] Routine Lab [address] [place], [place] [address] Phosphate [Mass/Vol] 3.5 mg/dL Normal 2.7-4.8 [facility] Reference Lab Comment on above: Performed By: #### D 2D3 #### [facility] Chemistry [address] [place] [address] #### CBC, RFP, MG1, PTHI, UACR #### [facility] Routine Lab [address] [place] [address] Potassium [Moles/Vol] 5.0 mmol/L Normal 3.7-5.1 [facility] Reference Lab Comment on above: Performed By: #### D 2D3 #### [facility] Chemistry [address] [place] [address] #### CBC, RFP, MG1, PTHI, UACR #### [facility] Routine Lab [address] [place] [address] Sodium [Moles/Vol] 134 mmol/L Low 136-144 [facility] Reference Lab Comment on above: Performed By: #### D 2D3 #### [facility] Chemistry [address] [place] [address] #### CBC, RFP, MG1, PTHI, UACR #### [facility] Routine Lab [address] [place], [place] [phone] Urea nitrogen [Mass/Vol] 29 mg/dL High 7-[address] [facility] Reference Lab Comment on above: Performed By: #### D 2D3 #### [facility] Chemistry [address] [place] [address] #### CBC, RFP, MG1, PTHI, UACR #### [facility] Routine Lab [address] [place] [address] 25-Hydroxy D2+D3on 1 25-Hydroxy D Total 24.8 ng/mL Low 30.0-100.0 [facility] Reference Lab Comment on above: Performed By: #### D 2D3 #### [facility] Chemistry [address] [place] [address] #### CBC, RFP, MG1, PTHI, UACR #### [facility] Routine Lab [address] [place] [address] 25-Hydroxy D2 24.8 ng/mL Normal [facility] Reference Lab Comment on above: Performed By: #### D 2D3 #### [facility] Chemistry [address] [place] [phone] #### CBC, RFP, MG1, PTHI, UACR #### [facility] Routine Lab [address] [place] [phone] 25-Hydroxy D3 <4.[address] [facility] Reference Lab Comment on above: Performed By: #### D 2D3 #### [facility] Chemistry [address] [place] [phone] #### CBC, RFP, MG1, PTHI, UACR #### [facility] Routine Lab [address] [place] [address] Albumin/Creat Ratioon 2020 Albumin Urine Random 362.1 mg/L Normal [facility] Reference Lab Comment on above: Performed By: #### D 2D3 #### [facility] Chemistry [address] [place] [phone] #### CBC, RFP, MG1, PTHI, UACR #### [facility] Routine Lab [address] [place] [phone] Albumin/Creat Ratio 1631 mg/g High <30 [facility] Reference Lab Comment on above: Performed By: #### D 2D3 #### [facility] Chemistry [address] [place] [phone] #### CBC, RFP, MG1, PTHI, UACR #### [facility] Routine Lab [address] [place] [address] Creatinine,Urine,Ran 22.2 mg/dL Normal 20-300 [facility] Reference Lab Comment on above: Performed By: #### D 2D3 #### [facility] Chemistry [address] [place] [address] #### CBC, RFP, MG1, PTHI, UACR #### [facility] Routine Lab [address] [place] [address] Magnesiumon 11-04-2020 Magnesium Low 1.7-2.[address] [facility] Reference Lab Comment on above: Result Comment: 0.6 Called to: Dr. Ramu Pe[facility] 11/04/20 Mike Flores Performed By: #### D 2D3 #### [facility] Chemistry [address] [place] [address] #### PTHI, UACR, MG1, RFP, CBC #### [facility] Routine Lab [address] [place], [place] [phone] PTH, Intacton 11-04-2020 PTH, Intact 218 pg/mL High 15-[address] [facility] Reference Lab Comment on above: Performed By: #### D 2D3 #### [facility] Chemistry [address] [place], [place] [phone] #### PTHI, UACR, MG1, RFP, CBC #### [facility] Routine Lab [address] [place] [address] Renal Function Panelon 11-04 Albumin [Mass/Vol] 4.2 g/dL Normal 3.9-4.9 [facility] Reference Lab Comment on above: Performed By: #### D 2D3 #### [facility] Chemistry [address] [place] [address] #### PTHI, UACR, MG1, RFP, CBC #### [facility] Routine Lab [address] [place] [address] Anion gap [Moles/Vol] 15 mmol/L Normal 9-18 [facility] Reference Lab Comment on above: Performed By: #### D 2D3 #### [facility] Chemistry [address] [place] [address] #### PTHI, UACR, MG1, RFP, CBC #### [facility] Routine Lab [address] [place] [address] Calcium [Mass/Vol] 8.5 mg/dL Normal 8.5-10.2 [facility] Reference Lab Comment on above: Performed By: #### D 2D3 #### [facility] Chemistry [address] [place] [address] #### PTHI, UACR, MG1, RFP, CBC #### [facility] Routine Lab [address] [place] [phone] Chloride [Moles/Vol] 100 mmol/L Normal 97-105 [facility] Reference Lab Comment on above: Performed By: #### D 2D3 #### [facility] Chemistry [address] [place] [address] #### PTHI, UACR, MG1, RFP, CBC #### [facility] Routine Lab [address] [place] [address] CO2 [Moles/Vol] 20 mmol/L Low 22-[address] [facility] Reference Lab Comment on above: Performed By: #### D 2D3 #### [facility] Chemistry [address] [place] [address] #### PTHI, UACR, MG1, RFP, CBC #### [facility] Routine Lab [address] [place] [address] Creatinine [Mass/Vol] 1.93 mg/dL High 0.58-0.96 [facility] Reference Lab Comment on above: Performed By: #### D 2D3 #### [facility] Chemistry [address] [place] [address] #### PTHI, UACR, MG1, RFP, CBC #### [facility] Routine Lab [address] [place] [address] eGFR- Amer. 32 Normal [facility] Reference Lab Comment on above: Performed By: #### D 2D3 #### [facility] Chemistry [address] [place] [address] #### PTHI, UACR, MG1, RFP, CBC #### [facility] Routine Lab [address] [place] [address] eGFR-All Other Races 27 . Normal [facility] Reference Lab Comment on above: Performed By: #### D 2D3 #### [facility] Chemistry [address] [place] [address] #### PTHI, UACR, MG1, RFP, CBC #### [facility] Routine Lab [address] [place] [address] Glucose [Mass/Vol] 78 mg/dL Normal 74-99 [facility] Reference Lab Comment on above: Performed By: #### D 2D3 #### [facility] Chemistry [address] [place] [phone] #### PTHI, UACR, MG1, RFP, CBC #### [facility] Routine Lab [address] [place] [address] Phosphate [Mass/Vol] 3.2 mg/dL Normal 2.7-4.8 [facility] Reference Lab Comment on above: Performed By: #### D 2D3 #### [facility] Chemistry [address] [place] [address] #### PTHI, UACR, MG1, RFP, CBC #### [facility] Routine Lab [address] [place] [address] Potassium [Moles/Vol] 4.7 mmol/L Normal 3.7-5.1 [facility] Reference Lab Comment on above: Performed By: #### D 2D3 #### [facility] Chemistry [address] [place], [place] [address] #### PTHI, UACR, MG1, RFP, CBC #### [facility] Routine Lab [address] [place], [place] [address] Sodium [Moles/Vol] 135 mmol/L Low 136-144 [facility] Reference Lab Comment on above: Performed By: #### D 2D3 #### [facility] Chemistry [address] [place] [address] #### PTHI, UACR, MG1, RFP, CBC #### [facility] Routine Lab [address] [place] [address] Urea nitrogen [Mass/Vol] 23 mg/dL High 7-[address] [facility] Reference Lab Comment on above: Performed By: #### D 2D3 #### [facility] Chemistry [address] [place] [address] #### PTHI, UACR, MG1, RFP, CBC #### [facility] Routine Lab [address] [place] [address] CBCon 11-03-2020 Absolute nRBC <0.01 Normal <0.[address] [facility] Reference Lab Comment on above: Performed By: #### D 2D3 #### [facility] Chemistry [address] [place] [address] #### PTHI, UACR, MG1, RFP, CBC #### [facility] Routine Lab [address] [place] [address] Erythrocyte distribution width (RBC) [Ratio] 13.9 % Normal 11.5-15.[address] [facility] Reference Lab Comment on above: Performed By: #### D 2D3 #### [facility] Chemistry [address] [place], [place] [address] #### PTHI, UACR, MG1, RFP, CBC #### [facility] Routine Lab [address] [place] [address] Hematocrit (Bld) [Volume fraction] 34.5 % Low 36.0-46.[address] [facility] Reference Lab Comment on above: Performed By: #### D 2D3 #### [facility] Chemistry [address] [place] [phone] #### PTHI, UACR, MG1, RFP, CBC #### [facility] Routine Lab [address] [place] [phone] Hemoglobin (Bld) [Mass/Vol] 10.8 g/dL Low 11.5-15.[address] [facility] Reference Lab Comment on above: Performed By: #### D 2D3 #### [facility] Chemistry [address] [place] [phone] #### PTHI, UACR, MG1, RFP, CBC #### [facility] Routine Lab [address] [place] [phone] MCH 26.9 pG Normal 26.0-34.[address] [facility] Reference Lab Comment on above: Performed By: #### D 2D3 #### [facility] Chemistry [address] [place] [phone] #### PTHI, UACR, MG1, RFP, CBC #### [facility] Routine Lab [address] [place] [phone] MCHC (RBC) [Mass/Vol] 31.3 g/dL Normal 30.5-36.0 [facility] Reference Lab Comment on above: Performed By: #### D 2D3 #### [facility] Chemistry [address] [place] [phone] #### PTHI, UACR, MG1, RFP, CBC #### [facility] Routine Lab [address] [place] [phone] MCV (RBC) [Entitic vol] 86.0 fL Normal 80.0-100.[address] [facility] Reference Lab Comment on above: Performed By: #### D 2D3 #### [facility] Chemistry [address] [place], [place] [address] #### PTHI, UACR, MG1, RFP, CBC #### [facility] Routine Lab [address] [place], [place] [address] Platelet mean volume (Bld) [Entitic vol] 12.1 fL Normal 9.0-12.[address] [facility] Reference Lab Comment on above: Performed By: #### D 2D3 #### [facility] Chemistry [address] [place] [address] #### PTHI, UACR, MG1, RFP, CBC #### [facility] Routine Lab [address] [place] [address] Platelets (Bld) [#/Vol] 278 10*3/uL Normal 150-[address] [facility] Reference Lab Comment on above: Performed By: #### D 2D3 #### [facility] Chemistry [address] [place] [address] #### PTHI, UACR, MG1, RFP, CBC #### [facility] Routine Lab [address] [place] [address] RBC (Bld) [#/Vol] 4.01 10*6/uL Normal 3.90-5.20 [facility] Reference Lab Comment on above: Performed By: #### D 2D3 #### [facility] Chemistry [address] [place] [address] #### PTHI, UACR, MG1, RFP, CBC #### [facility] Routine Lab [address] [place] [address] WBC (Bld) [#/Vol] 11.38 10*3/uL High 3.70-11.00 [facility] Reference Lab Comment on above: Performed By: #### D 2D3 #### [facility] Chemistry [address] [place] [phone] #### PTHI, UACR, MG1, RFP, CBC #### [facility] Routine Lab [address] [place] [phone] 25-Hydroxy D2+D3on 25-Hydroxy D Total 36.6 ng/mL Normal 30.0-100.0 [facility] Reference Lab Comment on above: Performed By: #### D 2D3 #### [facility] Chemistry [address] [place] [phone] #### CBC, RFP, MG1, PTHI, UACR #### [facility] Routine Lab [address] [place] [phone] 25-Hydroxy D2 36.6 ng/mL Normal [facility] Reference Lab Comment on above: Performed By: #### D 2D3 #### [facility] Chemistry [address] [place] [phone] #### CBC, RFP, MG1, PTHI, UACR #### [facility] Routine Lab [address] [place] [phone] 25-Hydroxy D3 <4.[address] [facility] Reference Lab Comment on above: Performed By: #### D 2D3 #### [facility] Chemistry [address] [place] [phone] #### CBC, RFP, MG1, PTHI, UACR #### [facility] Routine Lab [address] [place] [phone] Albumin/Creat Ratioon 2020 Albumin Urine Random 313.8 mg/L Normal [facility] Reference Lab Comment on above: Performed By: #### D 2D3 #### [facility] Chemistry [address] [place] [phone] #### CBC, RFP, MG1, PTHI, UACR #### [facility] Routine Lab [address] [place] [address] Albumin/Creat Ratio 1561 mg/g High <30 [facility] Reference Lab Comment on above: Performed By: #### D 2D3 #### [facility] Chemistry [address] [place] [address] #### CBC, RFP, MG1, PTHI, UACR #### [facility] Routine Lab [address] [place] [address] Creatinine,Urine,Ran 20.1 mg/dL Normal 20-300 [facility] Reference Lab Comment on above: Performed By: #### D 2D3 #### [facility] Chemistry [address] [place] [address] #### CBC, RFP, MG1, PTHI, UACR #### [facility] Routine Lab [address] [place] [address] CBCon 06-26-2020 Absolute nRBC <0.01 Normal <0.[address] [facility] Reference Lab Comment on above: Performed By: #### D 2D3 #### [facility] Chemistry [address] [place] [phone] #### CBC, RFP, MG1, PTHI, UACR #### [facility] Routine Lab [address] [place] [address] Erythrocyte distribution width (RBC) [Ratio] 13.8 % Normal 11.5-15.[address] [facility] Reference Lab Comment on above: Performed By: #### D 2D3 #### [facility] Chemistry [address] [place] [address] #### CBC, RFP, MG1, PTHI, UACR #### [facility] Routine Lab [address] [place], [place] [address] Hematocrit (Bld) [Volume fraction] 34.8 % Low 36.0-46.[address] [facility] Reference Lab Comment on above: Performed By: #### D 2D3 #### [facility] Chemistry [address] [place] [phone] #### CBC, RFP, MG1, PTHI, UACR #### [facility] Routine Lab [address] [place] [address] Hemoglobin (Bld) [Mass/Vol] 10.5 g/dL Low 11.5-15.[address] [facility] Reference Lab Comment on above: Performed By: #### D 2D3 #### [facility] Chemistry [address] [place] [address] #### CBC, RFP, MG1, PTHI, UACR #### [facility] Routine Lab [address] [place] [address] MCH 26.8 pG Normal 26.0-34.[address] [facility] Reference Lab Comment on above: Performed By: #### D 2D3 #### [facility] Chemistry [address] [place] [phone] #### CBC, RFP, MG1, PTHI, UACR #### [facility] Routine Lab [address] [place] [phone] MCHC (RBC) [Mass/Vol] 30.2 g/dL Low 30.5-36.0 [facility] Reference Lab Comment on above: Performed By: #### D 2D3 #### [facility] Chemistry [address] [place] [phone] #### CBC, RFP, MG1, PTHI, UACR #### [facility] Routine Lab [address] [place] [phone] MCV (RBC) [Entitic vol] 88.8 fL Normal 80.0-100.0 [facility] Reference Lab Comment on above: Performed By: #### D 2D3 #### [facility] Chemistry [address] [place] [phone] #### CBC, RFP, MG1, PTHI, UACR #### [facility] Routine Lab [address] [address] Platelet mean volume (Bld) [Entitic vol] 11.6 fL Normal 9.0-12.[address] [facility] Reference Lab Comment on above: Performed By: #### D 2D3 #### [facility] Chemistry [address] [address] #### CBC, RFP, MG1, PTHI, UACR #### [facility] Routine Lab [address] [place] [address] Platelets (Bld) [#/Vol] 295 10*3/uL Normal 150-[address] [facility] Reference Lab Comment on above: Performed By: #### D 2D3 #### [facility] Chemistry [address] [place] [phone] #### CBC, RFP, MG1, PTHI, UACR #### [facility] Routine Lab [address] [place] [address] RBC (Bld) [#/Vol] 3.92 10*6/uL Normal 3.90-5.20 [facility] Reference Lab Comment on above: Performed By: #### D 2D3 #### [facility] Chemistry [address] [place] [phone] #### CBC, RFP, MG1, PTHI, UACR #### [facility] Routine Lab [address] [place] [address] WBC (Bld) [#/Vol] 9.56 10*3/uL Normal 3.70-11.00 [facility] Reference Lab Comment on above: Performed By: #### D 2D3 #### [facility] Chemistry [address] [place] [address] #### CBC, RFP, MG1, PTHI, UACR #### [facility] Routine Lab [address] [place], [place] [phone] Magnesiumon 06-26-2020 Magnesium [Mass/Vol] 1.0 mg/dL Low 1.7-2.3 [facility] Reference Lab Comment on above: Performed By: #### D 2D3 #### [facility] Chemistry [address] [place] [address] #### CBC, RFP, MG1, PTHI, UACR #### [facility] Routine Lab [address] [phone] PTH, Intacton 06-26-2020 PTH, Intact 316 pg/mL High 15-[address] [facility] Reference Lab Comment on above: Performed By: #### D 2D3 #### [facility] Chemistry [address] [place] [address] #### CBC, RFP, MG1, PTHI, UACR #### [facility] Routine Lab [address] [place] [address] Renal Function Panelon 06-26 Albumin [Mass/Vol] 4.2 g/dL Normal 3.9-4.9 [facility] Reference Lab Comment on above: Performed By: #### D 2D3 #### [facility] Chemistry [address] [place] [address] #### CBC, RFP, MG1, PTHI, UACR #### [facility] Routine Lab [address] [place] [address] Anion gap [Moles/Vol] 12 mmol/L Normal 9-18 [facility] Reference Lab Comment on above: Performed By: #### D 2D3 #### [facility] Chemistry [address] [place] [address] #### CBC, RFP, MG1, PTHI, UACR #### [facility] Routine Lab [address] [place] [address] Calcium [Mass/Vol] 9.9 mg/dL Normal 8.5-10.2 [facility] Reference Lab Comment on above: Performed By: #### D 2D3 #### [facility] Chemistry [address] [address] #### CBC, RFP, MG1, PTHI, UACR #### [facility] Routine Lab [address] [place] [address] Chloride [Moles/Vol] 98 mmol/L Normal 97-105 [facility] Reference Lab Comment on above: Performed By: #### D 2D3 #### [facility] Chemistry [address] [place] [address] #### CBC, RFP, MG1, PTHI, UACR #### [facility] Routine Lab [address] [place] [phone] CO2 [Moles/Vol] 21 mmol/L Low 22-[address] [facility] Reference Lab Comment on above: Performed By: #### D 2D3 #### [facility] Chemistry [address] [place] [phone] #### CBC, RFP, MG1, PTHI, UACR #### [facility] Routine Lab [address] [place] [address] Creatinine [Mass/Vol] 2.03 mg/dL High 0.58-0.96 [facility] Reference Lab Comment on above: Performed By: #### D 2D3 #### [facility] Chemistry [address] [place] [phone] #### CBC, RFP, MG1, PTHI, UACR #### [facility] Routine Lab [address] [place] [phone] eGFR- Amer. 30 Normal [facility] Reference Lab Comment on above: Performed By: #### D 2D3 #### [facility] Chemistry [address] [place] [address] #### CBC, RFP, MG1, PTHI, UACR #### [facility] Routine Lab [address] [place], [place] [address] eGFR-All Other Races 25 . Normal [facility] Reference Lab Comment on above: Performed By: #### D 2D3 #### [facility] Chemistry [address] [place] [address] #### CBC, RFP, MG1, PTHI, UACR #### [facility] Routine Lab [address] [address] Glucose [Mass/Vol] 84 mg/dL Normal 74-99 [facility] Reference Lab Comment on above: Performed By: #### D 2D3 #### [facility] Chemistry [address] [address] #### CBC, RFP, MG1, PTHI, UACR #### [facility] Routine Lab [address] [address] Phosphate [Mass/Vol] 3.6 mg/dL Normal 2.7-4.8 [facility] Reference Lab Comment on above: Performed By: #### D 2D3 #### [facility] Chemistry [address] [address] #### CBC, RFP, MG1, PTHI, UACR #### [facility] Routine Lab [address] [address] Potassium [Moles/Vol] 4.5 mmol/L Normal 3.7-5.1 [facility] Reference Lab Comment on above: Performed By: #### D 2D3 #### [facility] Chemistry [address] [address] #### CBC, RFP, MG1, PTHI, UACR #### [facility] Routine Lab [address] [address] Sodium [Moles/Vol] 131 mmol/L Low 136-144 [facility] Reference Lab Comment on above: Performed By: #### D 2D3 #### [facility] Chemistry [address] [place], [place] [address] #### CBC, RFP, MG1, PTHI, UACR #### [facility] Routine Lab [address], [place] [phone] Urea nitrogen [Mass/Vol] 26 mg/dL High 7-[address] [facility] Reference Lab Comment on above: Performed By: #### D 2D3 #### [facility] Chemistry [address] [place], [place] [address] #### CBC, RFP, MG1, PTHI, UACR #### [facility] Routine Lab [address] [phone] US ABDOMEN COMPLETEon 2019 Patient Name: CATARINA BOYER ---Ultrasound--- Exam Date/Time 01/08/2020 17:22:16 EDT Exam US Abdomen Complete Ordering Physician MD ZIYAD, CAMILLE Philip Accession Number [id number] CPT4 Codes 40996 () Reason For Exam abd pain and nausea Report ULTRASOUND OF ABDOMEN CLINICAL INDICATION: abd pain and nausea TECHNIQUE: Sonography of the upper abdomen. COMPARISON: August,. FINDINGS: Gallbladder without evidence of calculi. Wall thickness within normal limits. Intra-and extrahepatic bile ducts are of normal caliber. Negative sonographic Ugadalupe's sign. Liver enlarged, measuring 22 cm in maximal dimension, has mildly heterogeneous and diffusely increased echogenicity without focal abnormalities. Right kidney measures 10.1 x 5.3 x 5.9 cm and contains multiple cysts, largest in the lower pole measuring 1.6 x 1.6 x 2.1 cm. Left kidney measures 9.6 x 5.6 x 5.8 cm and contains multiple cysts, largest in the lower pole measuring 4.9 x 4.1 x 4.7 cm. No significant hydronephrosis. Visualized splenic parenchyma grossly unremarkable. Pancreas poorly visualized due to patient's body habitus and overlying bowel gas. Visualized abdominal aorta and IVC grossly unremarkable. IMPRESSION: 1. Hepatomegaly and findings compatible with hepatic steatosis. 2. Bilateral renal cysts. 3. No other acute findings. Report Dictated on Workstation: [email or web address] --- Final --- Dictating Physician: MD BOWLING WENDELL Signed Date and Time: 01/08/2020 5:59 pm Signed by: MD BOWLING WENDELL Transcribed Date and Time: 01/08/2020 6:00 [facility] [employer] [place], [place], [facility] Incoming Radiology Results From [facility] - 01/08/2020 6:00 PM EDT Patient Name: CATARINA BOYER ---Ultrasound--- Exam Date/Time 01/08/2020 17:22:16 EDT Exam US Abdomen Complete Ordering Physician MD ZIYAD, CAMILLE Philip Accession Number [id number] CPT4 Codes 53782 () Reason For Exam abd pain and nausea Report ULTRASOUND OF ABDOMEN CLINICAL INDICATION: abd pain and nausea TECHNIQUE: Sonography of the upper abdomen. COMPARISON: August,. FINDINGS: Gallbladder without evidence of calculi. Wall thickness within normal limits. Intra-and extrahepatic bile ducts are of normal caliber. Negative sonographic Guadalupe's sign. Liver enlarged, measuring 22 cm in maximal dimension, has mildly heterogeneous and diffusely increased echogenicity without focal abnormalities. Right kidney measures 10.1 x 5.3 x 5.9 cm and contains multiple cysts, largest in the lower pole measuring 1.6 x 1.6 x 2.1 cm. Left kidney measures 9.6 x 5.6 x 5.8 cm and contains multiple cysts, largest in the lower pole measuring 4.9 x 4.1 x 4.7 cm. No significant hydronephrosis. Visualized splenic parenchyma grossly unremarkable. Pancreas poorly visualized due to patient's body habitus and overlying bowel gas. Visualized abdominal aorta and IVC grossly unremarkable. IMPRESSION: 1. Hepatomegaly and findings compatible with hepatic steatosis. 2. Bilateral renal cysts. 3. No other acute findings. Report Dictated on Workstation: [id number] --- Final --- Dictating Physician: MD BOWLING WENDELL Signed Date and Time: 01/08/2020 5:59 pm Signed by: MD BOWLING WENDELL Transcribed Date and Time: 01/08/2020 6:00 [facility], [place] Magnesiumon 06-13-2019 Interpretation and review of laboratory results Abnormal [place], [place] Magnesium [Mass/Vol] 1.2 mg/dL Low 1.6 - 2 .3 mg/dL [place], [place] Test Performed by [facility], [address] , [place] [id number] [place] [address] CBC Auto DifferentialOrdered By: Dania Falcon on 05-21-2019 Absolute Baso # 0.1 10*3/uL 0 - 0.2 10*3/uL [employer] Work Phone: Absolute Neut # 6.4 10*3/uL 1.8 - 7 10*3/uL [employer] Work Phone: Basophils/100 WBC (Bld) 0.7 % 0 - 2 % [facility] Work Phone: Eosinophils (Bld) [#/Vol] 0.1 10*3/uL 0 - 0.5 10*3/uL [employer] Work Phone: Eosinophils/100 WBC (Bld) 1.3 % 1 - 6 % [employer] Work Phone: Erythrocyte distribution width (RBC) [Ratio] 13.7 % 11.5 - 14.5 % [employer] Work Phone: Granulocytes/100 WBC (Bld) 64.7 % 40 - 80 % [employer] Work Phone: Hematocrit (Bld) [Volume fraction] 32.5 % Low 35 - 47 % [employer] Work Phone: Hemoglobin (Bld) [Mass/Vol] 10.8 g/dL Low 11.7 - 16 g/dL [employer] Work Phone: Interpretation and review of laboratory results Abnormal [employer] Work Phone: Lymphocytes (Bld) [#/Vol] 2.7 10*3/uL 1 - 4.3 10*3/uL [employer] Work Phone: Lymphocytes/100 WBC (Bld) 26.8 % 20 - 40 % [employer] Work Phone: MCH (RBC) [Entitic mass] 27.9 pg 26 - 34 pg [employer] Work Phone: [phone] MCHC 33.2 % 32 - 36 % [employer] Work Phone: [phone] MCV (RBC) [Entitic vol] 84.1 fL 79 - 98 fL [employer] Work Phone: [phone] Monocytes (Bld) [#/Vol] 0.6 10*3/uL 0 - 0.8 10*3/uL [employer] Work Phone: [phone] Monocytes/100 WBC (Bld) 6.5 % 2 - 10 % [employer] Work Phone: [phone] Platelet mean volume (Bld) [Entitic vol] 9.1 fL 7.4 - 10.4 fL [employer] Work Phone: [phone] Platelets (Bld) [#/Vol] 335 10*3/uL 140 - 440 10*3/uL [employer] Work Phone: [phone] RBC (Bld) [#/Vol] 3.87 10*6/uL 3.8 - 5.2 10*6/uL [employer] Work Phone: [phone] WBC (Bld) [#/Vol] 9.9 10*3/uL 3.6 - 10.7 10*3/uL [employer] Work Phone: [phone] Test Performed by [facility], [address] , [place] [address] [employer] Work Phone: [phone] MagnesiumOrdered By: Cordelia at [facility] on 05-21-2019 Interpretation and review of laboratory results Abnormal [employer] Work Phone: [phone] Magnesium [Mass/Vol] 0.6 mg/dL Critically low 1.6 - 2.3 mg/dL [employer] Work Phone: [phone] Comment on above: reran/rechecked/call ed Test Performed by [facility], [address] , [address] Work Phone: [phone] Microalbumin / Creatinine Ur ine RatioOrdered By: Dania Falcon on 05-21-2019 Albumin/Creatinine DL <= 20 mg/L (24H U) [Mass ratio] 208.8 mg/L High 0 - 17 mg/L [employer] Work Phone: Comment on above: Microalbumin concent rations <30 are considered normal, 30-300 are considered microalbuminuria (or risk of diabetic nephropathy), and >300 are considered clinical albuminuria (clinical nephropathy). Diabetes Care,27, Supplement 1, R99-83, 2004 Albumin/Creatinine DL <= 20 mg/L (U) [Ratio] 1364.7 mg/g High 0 - 29.9 mg/g [employer] Work Phone: Creatinine (U) [Mass/Vol] 15.3 mg/dL No Range [employer] Work Phone: [phone] Interpretation and review of laboratory results Abnormal [employer] Work Phone: Test Performed by [facility], [address] [place], [place] [address] [employer] Work Phone: PTH, IntactOrdered By: April sifuentes [employer] on 05-21-2019 Interpretation and review of laboratory results Abnormal [employer] Work Phone: Pth Intact 222.8 pg/mL High 15 - 63 pg/mL [employer] Work Phone: Test Performed by [employer], [address] [place], [place] [address] [facility] Work Phone: Renal Function PanelOrdered By: Dania Falcon on 05-21-2019 Albumin [Mass/Vol] 4.4 g/dL 3.5 - 5 g/dL [facility] Work Phone: Anion gap [Moles/Vol] 11 mmol/L [facility] Work Phone: Calcium [Mass/Vol] 9.3 mg/dL 8.4 - 10. 4 mg/dL [facility] Work Phone: Chloride [Moles/Vol] 101 mmol/L 98 - 10 7 mmol/L [facility] Work Phone: CO2 [Moles/Vol] 23 mmol/L 22 - 30 mmol/L [facility] Work Phone: Creatinine [Mass/Vol] 2.75 mg/dL High 0.52 - 1.25 mg/dL [facility] Work Phone: EGFR IF NonAfrican [place] 17.8 mL/min >60 [facility] Work Phone: Comment on above: Source- MDRD equatio n with creatinine calibration to IDMS(NKDEP) eGFR not recommended for drug dose adjustment GFR/1.73 sq M.predicted among blacks MDRD (S/P/Bld) [Vol rate/Area] 21.5 mL/min/{1.73_m2} >60 [facility] Work Phone: Glucose [Mass/Vol] 94 mg/dL 70 - 100 mg/dL [facility] Work Phone: Interpretation and review of laboratory results Abnormal [employer] Work Phone: Phosphate [Mass/Vol] 3.9 mg/dL 2.5 - 4 .5 mg/dL [facility] Work Phone: Potassium [Moles/Vol] 4.6 mmol/L 3.5 - 5.1 mmol/L [facility] Work Phone: Sodium [Moles/Vol] 135 mmol/L 135 - 145 mmol/L [facility] Work Phone: Urea nitrogen [Mass/Vol] 23 mg/dL High 7 - 20 mg/dL [facility] Work Phone: Test Performed by [employer], [address] [place] [address] [place] [address] [employer] Work Phone: Vitamin D 25 HydroxyOrdered By: Dania Falcon on 05-21-2019 Interpretation and review of laboratory results Abnormal [employer] Work Phone: Vit D, 25-Hydroxy 28 ng/mL Low 30 - 100 ng/mL [employer] Work Phone: Comment on above: Therapy is based on measurement of Total 25-OHD with the following classification levels: Less than 20 ng/mL: Indicative of Vit D deficiency 20-30 ng/mL: Suggests Vit D insufficiency Optimal: Greater than or equal to 30 ng/mL Test performed by [employer], measuring Total Vitamin D, not individual fractions. Test Performed by [facility], [address] [place], [place] [address] [facility] Work Phone: CBCon 02-02-2019 Erythrocyte distribution width (RBC) [Ratio] 14.9 % High 11.5 - 14.5 % [place], [place] Hematocrit (Bld) [Volume fraction] 31.4 % Low 35 - 47 % [place] Hemoglobin (Bld) [Mass/Vol] 10.7 g/dL Low 11.7 - 16 g/dL [place] Interpretation and review of laboratory results Abnormal [place] MCH (RBC) [Entitic mass] 28.9 pg 26 - 34 pg [place], [place] MCHC (RBC) [Mass/Vol] 34.0 % 32 - 36 % [place] MCV (RBC) [Entitic vol] 85.0 fL 79 - 98 fL [place], [place] Platelet mean volume (Bld) [Entitic vol] 8.8 fL 7.4 - 10.4 fL [place], [place] Platelets (Bld) [#/Vol] 310 10*3/uL 140 - 440 10*3/uL [place] RBC (Bld) [#/Vol] 3.69 10*6/uL Low 3.8 - 5.2 10*6/uL [place] WBC (Bld) [#/Vol] 9.5 10*3/uL 3.6 - 10.7 10*3/uL [place] Test Performed by [facility], [address] , [place], [place] [address] [place], [place] Magnesiumon 02-02-2019 Magnesium [Mass/Vol] 1.7 mg/dL 1.6 - 2 .3 mg/dL [place], [place] Microalbumin / Creatinine Ur ine Ratioon 02-02-2019 Albumin/Creatinine DL <= 20 mg/L (24H U) [Mass ratio] 87.3 mg/L High 0 - 17 mg/L [facility], [place] Comment on above: Microalbumin concent rations <30 are considered normal, 30-300 are considered microalbuminuria (or risk of diabetic nephropathy), and >300 are considered clinical albuminuria (clinical nephropathy). Diabetes Care,27, Supplement 1, A36-83, 2004 Albumin/Creatinine DL <= 20 mg/L (U) [Ratio] 559.6 mg/g High 0 - 29.9 mg/g [facility], [place] Creatinine (U) [Mass/Vol] 15.6 mg/dL No Range [facility], [place] Interpretation and review of laboratory results Abnormal [place], [place] Test Performed by [facility], [address] [place], [place] [address] [place] [address], [place] Otheron 02-02-2019 Test Performed by [facility], [address] , [place], [place] [address] [place], [place] PTH, Intacton 02-02-2019 Interpretation and review of laboratory results Abnormal [place] Pth Intact 207.9 pg/mL High 15 - 63 pg/mL [facility], [place] Test Performed by [facility], [address] [place], [place] [address] [facility], [place] Renal Function Panelon 02-02 Albumin [Mass/Vol] 4.4 g/dL 3.5 - 5 g/dL [facility], [place] Anion gap [Moles/Vol] 12 mmol/L [facility], [place] Calcium [Mass/Vol] 10.5 mg/dL High 8.4 - 10. 4 mg/dL [facility], [place] Chloride [Moles/Vol] 103 mmol/L 98 - 10 7 mmol/L [facility], [place] CO2 [Moles/Vol] 24 mmol/L 22 - 30 mmol/L [facility], [place] Creatinine [Mass/Vol] 2.76 mg/dL High 0.52 - 1.25 mg/dL [facility], [place] EGFR IF NonAfrican [place] 17.7 mL/min >60 [facility], [place] Comment on above: Source- MDRD equatio n with creatinine calibration to IDMS(NKDEP) eGFR not recommended for drug dose adjustment GFR/1.73 sq M predicted among blacks MDRD (S/P/Bld) [Vol rate/Area] 21.5 mL/min/{1.73_m2} >60 [place], [place] Glucose [Mass/Vol] 84 mg/dL 70 - 100 mg/dL [place], [place] Interpretation and review of laboratory results Abnormal [place] Phosphate [Mass/Vol] 4.4 mg/dL 2.5 - 4 .5 mg/dL [place] Potassium [Moles/Vol] 4.8 mmol/L 3.5 - 5.1 mmol/L [place] Sodium [Moles/Vol] 139 mmol/L 135 - 145 mmol/L [place] Urea nitrogen [Mass/Vol] 27 mg/dL High 7 - 20 mg/dL [place], [place] Vitamin D 25 Hydroxyon 02-02 Vit D, 25-Hydroxy 40 ng/mL 30 - 100 ng/mL [place], [place] Comment on above: Therapy is based on measurement of Total 25-OHD with the following classification levels: Less than 20 ng/mL: Indicative of Vit D deficiency 20-30 ng/mL: Suggests Vit D insufficiency Optimal: Greater than or equal to 30 ng/mL Test performed by [employer], measuring Total Vitamin D, not individual fractions. [facility], [address] [place], [place] [address] [place], [place] Renal Function Panelon 01-02 Albumin [Mass/Vol] 4.3 g/dL 3.5 - 5 g/dL [place] Anion gap [Moles/Vol] 11 mmol/L [place] Calcium [Mass/Vol] 10.6 mg/dL High 8.4 - 10. 4 mg/dL [place] Chloride [Moles/Vol] 103 mmol/L 98 - 10 7 mmol/L [place] CO2 [Moles/Vol] 23 mmol/L 22 - 30 mmol/L [place] Creatinine [Mass/Vol] 2.97 mg/dL High 0.52 - 1.25 mg/dL [place] EGFR IF NonAfrican [place] 16.3 mL/min >60 [place] Comment on above: Source- MDRD equatio n with creatinine calibration to IDMS(NKDEP) eGFR not recommended for drug dose adjustment GFR/1.73 sq M predicted among blacks MDRD (S/P/Bld) [Vol rate/Area] 19.7 mL/min/{1.73_m2} >60 [place] Glucose [Mass/Vol] 88 mg/dL 70 - 100 mg/dL [place] Interpretation and review of laboratory results Abnormal [place] Phosphate [Mass/Vol] 3.5 mg/dL 2.5 - 4 .5 mg/dL [place] Potassium [Moles/Vol] 4.9 mmol/L 3.5 - 5.1 mmol/L [place] Sodium [Moles/Vol] 138 mmol/L 135 - 145 mmol/L [place] Urea nitrogen [Mass/Vol] 31 mg/dL High 7 - 20 mg/dL [place] Test Performed by [facility], [address] [place], [place] [address] , [address] Basic Metabolic Panelon 11-23 Anion gap [Moles/Vol] 10 mmol/L [place] Calcium [Mass/Vol] 11.4 mg/dL High 8.4 - 10. 4 mg/dL [place] Chloride [Moles/Vol] 105 mmol/L 98 - 10 7 mmol/L [place] CO2 [Moles/Vol] 23 mmol/L 22 - 30 mmol/L [place] Creatinine [Mass/Vol] 3.76 mg/dL High 0.52 - 1.25 mg/dL [place] EGFR IF NonAfrican [place] 12.4 mL/min >60 [place] Comment on above: Source- MDRD equatio n with creatinine calibration to IDMS(NKDEP) eGFR not recommended for drug dose adjustment GFR/1.73 sq M predicted among blacks MDRD (S/P/Bld) [Vol rate/Area] 15.0 mL/min/{1.73_m2} >60 [place] Glucose [Mass/Vol] 110 mg/dL High 70 - 100 mg/dL [place] Interpretation and review of laboratory results Abnormal [place] Potassium [Moles/Vol] 4.4 mmol/L 3.5 - 5.1 mmol/L [place] Sodium [Moles/Vol] 138 mmol/L 135 - 145 mmol/L [place] Urea nitrogen [Mass/Vol] 27 mg/dL High 7 - 20 mg/dL [place] CT Abdomen Pelvis Wo Contras ton 12-10-2018 Patient Name: CATARINA BOYER ---CT--- Exam Date/Time 12/10/2018 21:34:[address] Abdomen/Pelvis (No PO, No IV) Ordering Physician DIMA BROWN Accession Number [id number] CPT4 Codes 08673 (CT Abdomen/Pelvis (No PO, No IV)) Reason For Exam left lower quadrant, flank pain Report CLINICAL INFORMATION: Abdominal/flank pain extending into the pelvis. Nausea and vomiting. CT ABDOMEN: 3 mm axial cuts are obtained from the dome of the liver through the iliac crests without IV or oral contrast. The examination is compared to a previous study dated 09/16/2017. FINDINGS: The lung bases are included on the examination and demonstrate no focal infiltrates or effusions. The heart size is within normal limits. The liver and spleen are homogeneous in their attenuation without focal abnormality. The pancreas and adrenal glands are normal on this unenhanced scan. There are no renal or ureteral calculi. Renal cysts are noted bilaterally. There is no evidence of hydronephrosis or hydroureter. No free fluid is seen within the abdomen. IMPRESSION: 1. No renal or ureteral calculi. 2. No hydronephrosis. 3. Stable bilateral renal cysts. CT PELVIS: 3 mm axial cuts are obtained from the iliac crests through the symphysis pubis without IV or oral contrast. The examination is compared to a previous study dated 09/16/2017. FINDINGS: There are nondistended loops of small bowel. Air and stool are identified within the colon to the level of the rectum. There is no evidence of obstruction. Small diverticula are present within the sigmoid colon. Mild bowel wall thickening and inflammation are now apparent. Trace fluid is present in the surrounding mesenteric fat. This is best visualized on image #128. There are no loculated collections to suggest an abscess. The distal ureters and bladder are normal. No free fluid is seen within the pelvis. IMPRESSION: 1. Sigmoid diverticula. Mild inflammatory changes are noted low in the pelvis at the rectosigmoid junction. The findings are consistent with early acute diverticulitis. 2. No loculated collections to suggest an abscess. 3. No renal or ureteral calculi. 4. No hydronephrosis. 5. Stable bilateral renal cysts. Report Dictated on --- Final --- Dictating Physician: MD RICHARDSON JEFFREY Signed Date and Time: 12/10/2018 10:16 pm Signed by: MD RICHARDSON JEFFREY Transcribed Date and Time: 12/10/2018 10:18 [place], [place], [facility] Incoming Radiology Results From [facility] - 12/10/2018 10:18 PM EDT Patient Name: CATARINA BOYER ---CT--- Exam Date/Time 12/10/2018 21:34:[address] Abdomen/Pelvis (No PO, No IV) Ordering Physician DIMA BROWN Accession Number [id number] CPT4 Codes 45838 (CT Abdomen/Pelvis (No PO, No IV)) Reason For Exam left lower quadrant, flank pain Report CLINICAL INFORMATION: Abdominal/flank pain extending into the pelvis. Nausea and vomiting. CT ABDOMEN: 3 mm axial cuts are obtained from the dome of the liver through the iliac crests without IV or oral contrast. The examination is compared to a previous study dated 09/16/2017. FINDINGS: The lung bases are included on the examination and demonstrate no focal infiltrates or effusions. The heart size is within normal limits. The liver and spleen are homogeneous in their attenuation without focal abnormality. The pancreas and adrenal glands are normal on this unenhanced scan. There are no renal or ureteral calculi. Renal cysts are noted bilaterally. There is no evidence of hydronephrosis or hydroureter. No free fluid is seen within the abdomen. IMPRESSION: 1. No renal or ureteral calculi. 2. No hydronephrosis. 3. Stable bilateral renal cysts. CT PELVIS: 3 mm axial cuts are obtained from the iliac crests through the symphysis pubis without IV or oral contrast. The examination is compared to a previous study dated 09/16/2017. FINDINGS: There are nondistended loops of small bowel. Air and stool are identified within the colon to the level of the rectum. There is no evidence of obstruction. Small diverticula are present within the sigmoid colon. Mild bowel wall thickening and inflammation are now apparent. Trace fluid is present in the surrounding mesenteric fat. This is best visualized on image #128. There are no loculated collections to suggest an abscess. The distal ureters and bladder are normal. No free fluid is seen within the pelvis. IMPRESSION: 1. Sigmoid diverticula. Mild inflammatory changes are noted low in the pelvis at the rectosigmoid junction. The findings are consistent with early acute diverticulitis. 2. No loculated collections to suggest an abscess. 3. No renal or ureteral calculi. 4. No hydronephrosis. 5. Stable bilateral renal cysts. Report Dictated on --- Final --- Dictating Physician: MD RICHARDSON JEFFREY Signed Date and Time: 12/10/2018 10:16 pm Signed by: MD RICHARDSON JEFFREY Transcribed Date and Time: 12/10/2018 10:18 [place], [place] Hemogram (CBC) w/Auto Diffon 12-10-2018 Absolute Baso # 0.1 10*3/uL 0 - 0.2 10*3/uL [place] Absolute Neut # 5.7 10*3/uL 1.8 - 7 10*3/uL [place] Basophils/100 WBC (Bld) 0.9 % 0 - 2 % [place] Eosinophils (Bld) [#/Vol] 0.1 10*3/uL 0 - 0.5 10*3/uL [place] Eosinophils/100 WBC (Bld) 1.4 % 1 - 6 % [place] Erythrocyte distribution width (RBC) [Ratio] 14.5 % 11.5 - 14.5 % [place] Granulocytes/100 WBC (Bld) 63.7 % 40 - 80 % [place] Hematocrit (Bld) [Volume fraction] 34.5 % Low 35 - 47 % [place] Hemoglobin (Bld) [Mass/Vol] 11.5 g/dL Low 11.7 - 16 g/dL [place] Interpretation and review of laboratory results Abnormal [place] Lymphocytes (Bld) [#/Vol] 2.3 10*3/uL 1 - 4.3 10*3/uL [place] Lymphocytes/100 WBC (Bld) 26.3 % 20 - 40 % [place] MCH (RBC) [Entitic mass] 27.9 pg 26 - 34 pg [place] MCHC (RBC) [Mass/Vol] 33.3 % 32 - 36 % [place] MCV (RBC) [Entitic vol] 83.8 fL 79 - 98 fL [place], [place] Monocytes (Bld) [#/Vol] 0.7 10*3/uL 0 - 0.8 10*3/uL [place] Monocytes/100 WBC (Bld) 7.7 % 2 - 10 % [place], [place] Platelet mean volume (Bld) [Entitic vol] 7.9 fL 7.4 - 10.4 fL [place] Platelets (Bld) [#/Vol] 368 10*3/uL 140 - 440 10*3/uL [place] RBC (Bld) [#/Vol] 4.11 10*6/uL 3.8 - 5.2 10*6/uL [place] WBC (Bld) [#/Vol] 8.9 10*3/uL 3.6 - 10.7 10*3/uL [place] Test Performed by [facility], [address] [place], [place], [place] [id number] [place] [address] Hepatic Function Panelon Albumin [Mass/Vol] 4.5 g/dL 3.5 - 5 g/dL [place] ALP [Catalytic activity/Vol] 56 U/L 38 - 126 U/L [place] ALT [Catalytic activity/Vol] 21 U/L 13 - 69 U/L [place] AST [Catalytic activity/Vol] 19 U/L 15 - 46 U/L [place] Bilirubin Ql (U) 0.6 mg/dL 0.2 - 1.3 mg/dL [place] Bilirubin.direct [Mass/Vol] 0.0 mg/dL 0 - 0.3 mg/dL [place] Protein [Mass/Vol] 7.9 g/dL 6.3 - 8.2 g/dL [place] Lipaseon 12-10-2018 Lipase [Catalytic activity/Vol] 116 U/L 23 - 300 U/L [place] Otheron 12-10-2018 Test Performed by [facility] [employer] [facility], [address], [place], [place] [address] [place] Urinalysison 12-10-2018 Appearance (U) Clear [place], [place] Comment on above: Reference Range: Sergio ar Bacteria, UA Few /[HPF] [place], [place] Comment on above: Reference Range: Neg ative Bilirubin Urine Negative mg/dL [place], [place] Comment on above: Reference Range: Neg ative Color (U) Light-Yellow [place] Comment on above: Reference Range: Lt. Yellow Glucose, Ur Normal mg/dL [place], [place] Comment on above: Reference Range: Nor mal (<70) Ketones Ql (U) Negative mg/dL [place] Comment on above: Reference Range: Neg ative LEUKOCYTES, UA Negative [place]/uL [place] Comment on above: Reference Range: Neg ative Mucous Threads Few /[LPF] [place] Comment on above: Reference Range: Neg ative Nitrite, Urine Negative [place] Comment on above: Reference Range: Neg ative Occult Blood,Urine Negative mg/dL [place], [place] Comment on above: Reference Range: Neg ative pH (U) 6.0 [pH] [place] Protein (U) [Mass/Vol] 10 mg/dL [place], [place] Comment on above: Reference Range: Neg ative RBC (U) [#/Vol] 0-2 /[HPF] [facility] [place], [place] Comment on above: Reference Range: 0-2 Specific [place], Urine <1.005 M [place], [place] Squam Epithel, UA 0-2 /[HPF] [place], [place] Comment on above: Reference Range: 3-5 Urobilinogen, Urine Normal mg/dL [place], [place] Comment on above: Reference Range: Nor mal (0-1) WBC, UA 0-2 /[HPF] [place] Comment on above: Reference Range: 0-5 Test Performed by [facility], [address] [place], [place] [id number] [place] [address] Comprehensive Panelon 2018 ALP [Catalytic activity/Vol] 53 U/L Normal 45-117 [facility] Comment on above: Performed By: #### P 14 #### [address] [address] Bilirubin [Mass/Vol] 0.6 mg/dL Normal 0.2-1.0 [facility] Comment on above: Performed By: #### P 14 #### [address] [address] Creatinine [Mass/Vol] 3.06 mg/dL High 0.51-0.95 [facility] Comment on above: Performed By: #### P 14 #### [facility] [address] [place], [place] [address] Protein [Mass/Vol] 7.4 g/dL Normal 6.4-8.2 [facility] Comment on above: Performed By: #### P 14 #### [facility] [address] [place], [place] [address] ALT [Catalytic activity/Vol] 16 U/L Normal 12-78 [facility] Comment on above: Performed By: #### P 14 #### [facility] [address] [place], [place] [address] AST [Catalytic activity/Vol] 10 U/L Low 15-37 [facility] Comment on above: Performed By: #### P 14 #### [facility] [address] [place], [place] [address] Albumin [Mass/Vol] 3.7 g/dL Normal 3.4-5.0 [facility] Comment on above: Performed By: #### P 14 #### [facility] [address] [place], [place] [address] Anion gap [Moles/Vol] 11 mmol/L Normal 8-16 [facility] Comment on above: Performed By: #### P 14 #### [facility] [address] [place], [place] [address] Calcium [Mass/Vol] 9.9 mg/dL Normal 8.5-10.1 [facility] Comment on above: Performed By: #### P 14 #### [facility] [address] [place], [place] [address] CO2 [Moles/Vol] 22 mmol/L Normal 21-32 [facility] Comment on above: Performed By: #### P 14 #### [facility] [address] [place], [place] [address] Glucose [Mass/Vol] 96 mg/dL Normal 70-99 [facility] Comment on above: Performed By: #### P 14 #### [facility] [address] [place], [place] [address] Urea nitrogen [Mass/Vol] 24 mg/dL High 7-18 [facility] Comment on above: Performed By: #### P 14 #### [facility] [address] [place], [place] [address] Chloride [Moles/Vol] 108 mmol/L High 98-107 [facility] Comment on above: Performed By: #### P 14 #### [facility] [address] [place], [place] [address] Potassium [Moles/Vol] 4.6 mmol/L Normal 3.5-5.1 [facility] Comment on above: Performed By: #### P 14 #### [facility] [address] [place], [place] [address] Sodium [Moles/Vol] 136 mmol/L Normal 136-145 [facility] Comment on above: Performed By: #### P 14 #### [facility] [address] [place] [address] Hemogramon 12-07-2018 Erythrocyte distribution width (RBC) [Ratio] 13.9 % Normal 11.7-14.4 [facility] Comment on above: Performed By: #### C BC1 #### [facility] [address] [place] [address] Hematocrit (Bld) [Volume fraction] 33.5 % Low 34.1-44.9 [facility] Comment on above: Performed By: #### C BC1 #### [facility] [address] [place] [address] Hemoglobin (Bld) [Mass/Vol] 10.6 g/dL Low 11.2-15.7 [facility] Comment on above: Performed By: #### C BC1 #### [facility] [address] [place] [address] MCH (RBC) [Entitic mass] 27.7 pg Normal 25.6-32.2 [facility] Comment on above: Performed By: #### C BC1 #### [facility] [address] [place] [address] MCHC (RBC) [Mass/Vol] 31.6 % Normal 31.6-34.8 [facility] Comment on above: Performed By: #### C BC1 #### [facility] [address] [place] [address] MCV (RBC) [Entitic vol] 87.7 fL Normal 79.4-94.8 [facility] Comment on above: Performed By: #### C BC1 #### [facility] [address] [place] [address] Platelet mean volume (Bld) [Entitic vol] 11.0 fL Normal 9.4-12.3 [facility] Comment on above: Performed By: #### C BC1 #### [facility] [address] [place] [id number] Platelets (Bld) [#/Vol] 314 thou/cmm Normal 182-369 [facility] Comment on above: Performed By: #### C BC1 #### [facility] [address] [place] [address] RBC (Bld) [#/Vol] 3.82 mil/cmm Low 3.93-5.22 [facility] Comment on above: Performed By: #### C BC1 #### [facility] [address] [place] [address] RDW SD 44.3 fl Normal 36.4-46.3 [facility] Comment on above: Performed By: #### C BC1 #### [facility] [address] [place] [address] WBC (Bld) [#/Vol] 13.86 thou/cmm High 3.98-10.04 [facility] Comment on above: Performed By: #### C BC1 #### [facility] [address] [place] [id number] Lipase Bloodon 12-07-2018 Lipase Blood 165 U/L Normal 73-393 [facility] Comment on above: Performed By: #### L IP #### [place] [address] MDRD GFRon 12-07-2018 GFR/1.73 sq M predicted among non-blacks MDRD (S/P/Bld) [Vol rate/Area] 15.74 mL/min/{1.73_m2} Normal >60mL/min/1. 73m2 [facility] Comment on above: Result Comment: If t he patient is , multiply the result by 1.210. Performed By: #### G FR #### [facility] [address] [place] [address] Urinalysis Routineon 019 Bacteria LM.HPF (Urine sed) [#/Area] NONE Normal None [facility] Comment on above: Performed By: #### P 14 #### [facility] [address] [place], [place] [address] Ep Cells Urine 0.5 /hpf Normal 0.0-5.0 [facility] Comment on above: Performed By: #### P 14 #### [facility] [address] [place] [address] Hyaline Cast 1.4 /lpf High 0.0-1.0 [facility] Comment on above: Performed By: #### P 14 #### [facility] [address] [place] [address] RBC LM.HPF (Urine sed) [#/Area] 3.9 /[HPF] Normal 0.0-5.0 [facility] Comment on above: Performed By: #### P 14 #### [facility] [address] [place] [address] WBC LM.HPF (Urine sed) [#/Area] 0.8 /[HPF] Normal 0.0-5.0 [facility] Comment on above: Performed By: #### P 14 #### [facility] [address] [place] [address] Appearance (U) CLEAR Normal [facility] Comment on above: Performed By: #### P 14 #### [facility] [address] [place] [address] Bilirubin (U) [Mass/Vol] Negative Normal Negative [facility] Comment on above: Performed By: #### P 14 #### [facility] [address] [place] [address] Color (U) YELLOW Normal [facility] Comment on above: Performed By: #### P 14 #### [facility] [address] [place] [address] Glucose Ql (U) Negative Normal Negative [facility] Comment on above: Performed By: #### P 14 #### [facility] [address] [place] [address] Hemoglobin,Urine Negative Normal Negative [facility] Comment on above: Performed By: #### P 14 #### [facility] [address] [place] [address] Ketone Urine Negative Normal Negative [facility] Comment on above: Performed By: #### P 14 #### [facility] [address] [place] [address] Leukocytes Esterase Negative Normal Negative [facility] Comment on above: Performed By: #### P 14 #### [facility] [address] [place], [place] [address] Nitrites Urine Negative Normal Negative [facility] Comment on above: Performed By: #### P 14 #### [facility] [address] [place], [place] [address] pH (U) 6.0 [pH] Normal 5.0-8.0 [facility] Comment on above: Performed By: #### P 14 #### [facility] [address] [place], [place] [address] Protein (U) [Mass/Vol] 100 mg/dL Abnormal Negative [facility] Comment on above: Performed By: #### P 14 #### [facility] [address] [place] [address] Specific [place], Ur 1.008 Normal 1.005-1.030 [facility] Comment on above: Performed By: #### P 14 #### [facility] [address] [place] [address] Urobilinogen,Ur 0.2 EU/dL Normal 0.2-1.0 [facility] Comment on above: Performed By: #### P 14 #### [facility] [address] [place] [address] Comprehensive Panelon 2018 ALP [Catalytic activity/Vol] 58 U/L Normal 45-117 [facility] Comment on above: Performed By: #### P 14 #### [facility] [address] [place], [place] [address] Bilirubin [Mass/Vol] 0.3 mg/dL Normal 0.2-1.0 [facility] Comment on above: Performed By: #### P 14 #### [facility] [address] [place], [place] [address] Protein [Mass/Vol] 7.5 g/dL Normal 6.4-8.2 [facility] Comment on above: Performed By: #### P 14 #### [facility] [address] [place] [address] ALT [Catalytic activity/Vol] 18 U/L Normal 12-78 [facility] Comment on above: Performed By: #### P 14 #### [facility] [address] [place], [place] [address] AST [Catalytic activity/Vol] 10 U/L Low 15-37 [facility] Comment on above: Performed By: #### P 14 #### [facility] [address] [place], [place] [address] Creatinine [Mass/Vol] 3.77 mg/dL High 0.51-0.95 [facility] Comment on above: Performed By: #### P 14 #### [facility] [address] [place], [place] [address] Albumin [Mass/Vol] 3.5 g/dL Normal 3.4-5.0 [facility] Comment on above: Performed By: #### P 14 #### [facility] [address] [place], [place] [address] Anion gap [Moles/Vol] 11 mmol/L Normal 8-16 [facility] Comment on above: Performed By: #### P 14 #### [facility] [address] [place], [place] [address] Calcium [Mass/Vol] 10.9 mg/dL High 8.5-10.1 [facility] Comment on above: Performed By: #### P 14 #### [facility] [address] [place], [place] [address] CO2 [Moles/Vol] 23 mmol/L Normal 21-32 [facility] Comment on above: Performed By: #### P 14 #### [facility] [address] [place], [place] [address] Glucose [Mass/Vol] 111 mg/dL High 70-99 [facility] Comment on above: Performed By: #### P 14 #### [facility] [address] [place], [place] [address] Urea nitrogen [Mass/Vol] 34 mg/dL High 7-18 [facility] Comment on above: Performed By: #### P 14 #### [facility] [address] [place], [place] [address] Chloride [Moles/Vol] 106 mmol/L Normal 98-107 [facility] Comment on above: Performed By: #### P 14 #### [facility] [address] [place] [address] Potassium [Moles/Vol] 4.2 mmol/L Normal 3.5-5.1 [facility] Comment on above: Performed By: #### P 14 #### [facility] [address] [place] [address] Sodium [Moles/Vol] 136 mmol/L Normal 136-145 [facility] Comment on above: Performed By: #### P 14 #### [facility] [address] [place] [address] Hemogram/Diffon 10-20-2018 Abs Immature Grans 0.08 thou/cmm High 0.00-0.05 [facility] Comment on above: Performed By: #### C BCD1 #### [facility] [address] [place] [address] Abs Neut (ANC) 8.15 thou/cmm High 1.56-6.13 [facility] Comment on above: Performed By: #### C BCD1 #### [facility] [address] [place] [address] Abs. Baso 0.06 thou/cmm Normal 0.01-0.08 [facility] Comment on above: Performed By: #### C BCD1 #### [facility] [address] [place] [address] Abs. Pratt 0.94 thou/cmm High 0.27-0.70 [facility] Comment on above: Performed By: #### C BCD1 #### [facility] [address] [place] [address] Basophils/100 WBC (Bld) 0.5 % Normal A [facility] Comment on above: Performed By: #### C BCD1 #### [facility] [address] [place] [address] Eosinophils (Bld) [#/Vol] 0.16 thou/cmm Normal 0.00-0.31 [facility] Comment on above: Performed By: #### C BCD1 #### [facility] [address] [place] [address] Eosinophils/100 WBC (Bld) 1.3 % Normal [facility] Comment on above: Performed By: #### C BCD1 #### [facility] [address] [place] [address] Erythrocyte distribution width (RBC) [Ratio] 12.9 % Normal 11.7-14.4 [facility] Comment on above: Performed By: #### C BCD1 #### [facility] [address] [place] [address] Hematocrit (Bld) [Volume fraction] 31.2 % Low 34.1-44.9 [facility] Comment on above: Performed By: #### C BCD1 #### [facility] [address] [place] [address] Hemoglobin (Bld) [Mass/Vol] 9.9 g/dL Low 11.2-15.7 [facility] Comment on above: Performed By: #### C BCD1 #### [facility] [address] [place] [address] Immature Grans 0.70 % Normal [facility] Comment on above: Performed By: #### C BCD1 #### [facility] [address] [place] [address] Lymphocytes (Bld) [#/Vol] 2.68 thou/cmm Normal 1.18-3.74 [facility] Comment on above: Performed By: #### C BCD1 #### [facility] [address] [place] [address] Lymphocytes/100 WBC (Bld) 22.2 % Normal [facility] Comment on above: Performed By: #### C BCD1 #### [facility] [address] [place] [address] MCH (RBC) [Entitic mass] 27.3 pg Normal 25.6-32.2 [facility] Comment on above: Performed By: #### C BCD1 #### [facility] [address] [place] [address] MCHC (RBC) [Mass/Vol] 31.7 % Normal 31.6-34.8 [facility] Comment on above: Performed By: #### C BCD1 #### [facility] [address] [place] [address] MCV (RBC) [Entitic vol] 86.2 fL Normal 79.4-94.8 [facility] Comment on above: Performed By: #### C BCD1 #### [facility] [address] [place] [address] Monocytes/100 WBC (Bld) 7.8 % Normal [facility] Comment on above: Performed By: #### C BCD1 #### [facility] [address] [place] [address] Platelet mean volume (Bld) [Entitic vol] 10.8 fL Normal 9.4-12.3 [facility] Comment on above: Performed By: #### C BCD1 #### [facility] [address] [place] [address] Platelets (Bld) [#/Vol] 404 thou/cmm High 182-369 [facility] Comment on above: Performed By: #### C BCD1 #### [facility] [address] [place] [address] RBC (Bld) [#/Vol] 3.62 mil/cmm Low 3.93-5.22 [facility] Comment on above: Performed By: #### C BCD1 #### [facility] [address] [place] [address] RDW SD 40.2 fl Normal 36.4-46.3 [facility] Comment on above: Performed By: #### C BCD1 #### [facility] [address] [place] [address] Seg Neutrophil 67.5 % Normal [facility] Comment on above: Performed By: #### C BCD1 #### [facility] [address] [place] [address] WBC (Bld) [#/Vol] 12.08 thou/cmm High 3.98-10.04 [facility] Comment on above: Performed By: #### C BCD1 #### [facility] [address] [place] [address] Lactic Acidon 10-20-2018 Lactate [Moles/Vol] 0.9 mmol/L Normal 0.5-2.2 [facility] Comment on above: Performed By: #### E DLAG #### [facility] [address] [place] [address] Lipase Bloodon 10-20-2018 Lipase Blood 233 U/L Normal 73-393 [facility] Comment on above: Performed By: #### L IP #### [facility] [address] [place] [address] MDRD GFRon 10-20-2018 GFR/1.73 sq M predicted among non-blacks MDRD (S/P/Bld) [Vol rate/Area] 12.38 mL/min/{1.73_m2} Normal >60mL/min/1. 73m2 [facility] Comment on above: Result Comment: If t he patient is , multiply the result by 1.210. Performed By: #### G FR #### [place] [address] Urinalysis Routineon 019 Bacteria LM.HPF (Urine sed) [#/Area] NONE Normal None [facility] Comment on above: Performed By: #### U RIN2 #### [place] [address] Ep Cells Urine 0.8 /hpf Normal 0.0-5.0 [facility] Comment on above: Performed By: #### U RIN2 #### [place] [address] Hyaline Cast 0.0 /lpf Normal 0.0-1.0 [facility] Comment on above: Performed By: #### U RIN2 #### [place] [address] RBC LM.HPF (Urine sed) [#/Area] 1.6 /[HPF] Normal 0.0-5.0 [facility] Comment on above: Performed By: #### U RIN2 #### [place] [address] WBC LM.HPF (Urine sed) [#/Area] 0.3 /[HPF] Normal 0.0-5.0 [facility] Comment on above: Performed By: #### U RIN2 #### [facility] [address] [place] [address] Appearance (U) CLEAR Normal [facility] Comment on above: Performed By: #### U RIN2 #### [facility] [address] [place] [address] Bilirubin (U) [Mass/Vol] Negative Normal Negative [facility] Comment on above: Performed By: #### U RIN2 #### [facility] [address] [place] [address] Color (U) YELLOW Normal [facility] Comment on above: Performed By: #### U RIN2 #### [facility] [address] [place] [address] Glucose Ql (U) Negative Normal Negative [facility] Comment on above: Performed By: #### U RIN2 #### [facility] [address] [place] [address] Hemoglobin,Urine Negative Normal Negative [facility] Comment on above: Performed By: #### U RIN2 #### [facility] [address] [place] [address] Ketone Urine Negative Normal Negative [facility] Comment on above: Performed By: #### U RIN2 #### [facility] [address] [place] [address] Leukocytes Esterase Negative Normal Negative [facility] Comment on above: Performed By: #### U RIN2 #### [facility] [address] [place] [address] Nitrites Urine Negative Normal Negative [facility] Comment on above: Performed By: #### U RIN2 #### [facility] [address] [place] [address] pH (U) 7.5 [pH] Normal 5.0-8.0 [facility] Comment on above: Performed By: #### U RIN2 #### [facility] [address] [place] [address] Protein (U) [Mass/Vol] 30 mg/dL Abnormal Negative [facility] Comment on above: Performed By: #### U RIN2 #### [facility] [address] [place], [place] [address] Specific [place], Ur 1.007 Normal 1.005-1.030 [facility] Comment on above: Performed By: #### U RIN2 #### [facility] [address] [place], [place] [address] Urobilinogen,Ur 0.2 EU/dL Normal 0.2-1.0 [facility] Comment on above: Performed By: #### U RIN2 #### [facility] [address] [place], [place] [address] Vital Signs Date Time Vital Sign Value Performing Clinician Facility 09-28-2024 10:37-0400 Body height 162.6 cm ZANDRA Castelan MD Work Phone: [facility] 09-28-2024 10:37-0400 Body mass index (BMI) [Ratio] 35.19 kg/m2 ZANDRA Castelan MD Work Phone: [facility] 09-28-2024 10:37-0400 Body weight 92.99 kg ZANDRA Castelan MD Work Phone: [facility] 09-28-2024 10:37-0400 Diastolic blood pressure 78 mm[Hg] ZANDRA Castelan MD Work Phone: [facility] 09-28-2024 10:37-0400 Heart rate 77 /min ZANDRA Castelan MD Work Phone: [facility] 09-28-2024 10:37-0400 Respiratory rate 20 /min ZANDRA Castelan MD Work Phone: [facility] 09-28-2024 10:37-0400 Systolic blood pressure 148 mm[Hg] ZANDRA Castelan MD Work Phone: [facility] 11-26-2023 18:17-0400 Diastolic Blood Pressure Non-Invasive 74 mm[Hg] REJI WELCH DO [facility] 11-26-2023 18:17-0400 Heart rate 64 /min REJI WELCH DO [facility] 11-26-2023 18:17-0400 Respiratory rate 16 /min REJI WELCH DO [facility] 11-26-2023 18:17-0400 Systolic Blood Pressure Non-Invasive 157 mm[Hg] REJI WELCH DO [facility] 11-26-2023 17:03-0400 Body temperature 97.88 [degF] REJI WELCH DO [facility] 11-26-2023 17:03-0400 Diastolic Blood Pressure Non-Invasive 79 mm[Hg] REJI WELCH DO [facility] 11-26-2023 17:03-0400 Heart rate 83 /min REJI WELCH DO [facility] 11-26-2023 17:03-0400 Respiratory rate 16 /min REJI WELCH DO [facility] 11-26-2023 17:03-0400 Systolic Blood Pressure Non-Invasive 160 mm[Hg] REJI WELCH DO [facility] 09-29-2022 11:57-0400 Body temperature 97 [degF] Imanvanessa Argueta DO Work Phone: [facility] [employer] 09-29-2022 11:57-0400 Diastolic blood pressure 67 mm[Hg] Iman Quintananett DO Work Phone: [facility] [employer] 09-29-2022 11:57-0400 Heart rate 66 /min Imanrichard Argueta DO Work Phone: [facility] [employer] 09-29-2022 11:57-0400 Respiratory rate 16 /min Imanvanessa Argueta DO Work Phone: [facility] [employer] 09-29-2022 11:57-0400 SaO2% (BldA) [Mass fraction] 95 % Iman Argueta DO Work Phone: [facility] [employer] 09-29-2022 11:57-0400 Systolic blood pressure 134 mm[Hg] Iman Argueta DO Work Phone: [facility] [employer] 09-29-2022 08:42-0400 Body height 160 cm Iman Argueta DO Work Phone: [facility] [employer] 09-29-2022 06:30-0400 Body mass index (BMI) [Ratio] 40.62 kg/m2 Iman Argueta DO Work Phone: [facility] [employer] 09-29-2022 06:30-0400 Body weight 104.01 kg Iman Argueta DO Work Phone: [facility] [employer] 01-20-2022 17:00-0400 Diastolic blood pressure 77 mm[Hg] Saloni Hussein MD Work Phone: [facility] 01-20-2022 17:00-0400 Heart rate 69 /min Saloni Hussein MD Work Phone: [facility] 01-20-2022 17:00-0400 Respiratory rate 16 /min Saloni Hussein MD Work Phone: [facility] 01-20-2022 17:00-0400 SaO2% (BldA) [Mass fraction] 93 % Saloni Hussein MD Work Phone: [facility] 01-20-2022 17:00-0400 Systolic blood pressure 136 mm[Hg] Saloni Hussein MD Work Phone: [facility] 01-20-2022 16:15-0400 Body temperature 97 [degF] Saloni Hussein MD Work Phone: [facility] 01-13-2022 13:42-0400 Body temperature 96.91 [degF] Saloni Hussein MD Work Phone: [facility] 01-13-2022 13:42-0400 Diastolic blood pressure 68 mm[Hg] Saloni Hussein MD Work Phone: [facility] 01-13-2022 13:42-0400 Heart rate 73 /min Saloni Hussein MD Work Phone: [facility] 01-13-2022 13:42-0400 SaO2% (BldA) [Mass fraction] 96 % Saloni Hussein MD Work Phone: [facility] 01-13-2022 13:42-0400 Systolic blood pressure 130 mm[Hg] Saloni Hussein MD Work Phone: [facility] 01-13-2022 13:30-0400 Body height 160 cm Saloni Hussein MD Work Phone: [facility] 01-13-2022 13:30-0400 Body mass index (BMI) [Ratio] 41.66 kg/m2 Saloni Hussein MD Work Phone: [facility] 01-13-2022 13:30-0400 Body weight 106.69 kg Saloni Hussein MD Work Phone: [facility] 10-01-2021 19:06-0400 Diastolic blood pressure 75 mm[Hg] Angel Ch MD Work Phone: [facility] 10-01-2021 19:06-0400 Heart rate 60 /min Angel Ch MD Work Phone: [facility] 10-01-2021 19:06-0400 Respiratory rate 16 /min Angel Ch MD Work Phone: [facility] 10-01-2021 19:06-0400 SaO2% (BldA) [Mass fraction] 95 % Angel Ch MD Work Phone: [facility] 10-01-2021 19:06-0400 Systolic blood pressure 141 mm[Hg] Angel Ch MD Work Phone: [facility] 10-01-2021 15:07-0400 Body height 160 cm Angel Ch MD Work Phone: [facility] 10-01-2021 15:07-0400 Body mass index (BMI) [Ratio] 40.74 kg/m2 Angel Ch MD Work Phone: [facility] 10-01-2021 15:07-0400 Body temperature 98.01 [degF] Angel Ch MD Work Phone: [facility] 10-01-2021 15:07-0400 Body weight 104.33 kg Angel Ch MD Work Phone: [facility] 07-21-2021 11:38-0400 Body temperature 98.1 [degF] Tom Nunes MD Work Phone: [facility] 07-21-2021 11:38-0400 Diastolic blood pressure 85 mm[Hg] Tom Nunes MD Work Phone: [facility] 07-21-2021 11:38-0400 Heart rate 67 /min Tom Nunes MD Work Phone: [facility] 07-21-2021 11:38-0400 Respiratory rate 20 /min Tom Nunes MD Work Phone: [facility] 07-21-2021 11:38-0400 SaO2% (BldA) [Mass fraction] 97 % Tom Nunes MD Work Phone: [facility] 07-21-2021 11:38-0400 Systolic blood pressure 143 mm[Hg] Tom Nunes MD Work Phone: [facility] 07-19-2021 23:48-0400 Body height 160 cm Tom Nunes MD Work Phone: [facility] 07-19-2021 23:48-0400 Body mass index (BMI) [Ratio] 39.86 kg/m2 Tom Nunes MD Work Phone: [facility] 07-19-2021 23:48-0400 Body weight 102.06 kg Tom Nunes MD Work Phone: [facility] 12-12-2018 07:32-0400 Body Temperature 97.11 [degF] [facility] [employer] [place] 12-12-2018 07:32-0400 BP Diastolic 73 mm[Hg] [facility] [employer] [facility] 12-12-2018 07:32-0400 BP Systolic 131 mm[Hg] [facility] [employer] [place] 12-12-2018 07:32-0400 Pulse (Heart Rate) 59 /min [facility] [employer] [place] 12-12-2018 07:32-0400 Pulse Oximetry 97 % [facility] [place] [facility] [place] 12-12-2018 07:32-0400 Respiratory Rate 20 /min Dima Townsend [facility], [place] 12-10-2018 23:52-0400 BMI (Body Mass Index) 37.02 kg/m2 Dima Townsend [facility]- [place], [place] 12-10-2018 23:52-0400 Body weight 94.8 kg Dima Mckeon [facility] , [place] 12-10-2018 23:52-0400 Height 160 cm Dima Mckeon [facility] , [place] Encounters Encounter Date Encounter Type Care Provider Facility Start: 12-25-2024 End: 12-25-2024 ambulatory JAYAPRAKASH R FLOR Facility:[facility] Start: 10-18-2024 End: 10-18-2024 ambulatory JAYAPRAKASH R FLOR Facility:[facility] Start: 10-16-2024 End: 10-16-2024 Orders Only Jasiel Ray MD Work Phone: [facility] Comment on above: Hyperkalemia Start: 10-13-2024 End: 10-13-2024 ambulatory JAYAPRAKASH R FLOR Facility:[facility] Start: 09-28-2024 End: 09-28-2024 Patient encounter procedure H Dima Castelan MD Work Phone: [facility] Comment on above: Stage 5 chronic kidn ey disease not on chronic dialysis (HCC) (Primary Dx) Start: 09-28-2024 End: 09-28-2024 ambulatory Tamera CASTELAN Facility:[facility] Start: 08-09-2024 End: 08-09-2024 ambulatory CAMILLE GOODMAN Facility:[facility] Start: 08-03-2024 End: 08-03-2024 Orders Only Jasiel Ray MD Work Phone: [facility] Comment on above: 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; Secondary hyperparathyroidism of renal origin (HCC) Start: 07-30-2024 End: 07-30-2024 ambulatory CAMILLE GOODMAN Facility:[facility] Start: 05-01-2024 End: 05-01-2024 ambulatory CAMILLE GOODMAN Facility:[facility] Start: 02-17-2024 End: 02-17-2024 [facility] Start: 02-02-2024 End: 02-02-2024 Emergency department patient visit Camille Goodman Facility:[facility] Start: 01-10-2024 End: 01-10-2024 ambulatory CAMILLE GOODMAN Facility:[facility] Start: 11-26-2023 End: 11-26-2023 Emergency department patient visit REJI WELCH DO [facility] Start: 11-16-2023 Chart abstracting Jimi Jimenez RN [facility] Start: 06-17-2023 End: 06-18-2023 [facility] Start: 06-17-2023 End: 06-17-2023 Subsequent hospital visit by physician Camille Goodman MD Work Phone: [facility] US Imaging Comment on above: Abnormal levels of o ther serum enzymes Start: 06-13-2023 Transcribe Orders Camille hartmann MD Work Phone: [facility] Central Scheduling Comment on above: Abnormal levels of o ther serum enzymes (Primary Dx) Start: 09-27-2022 End: 09-29-2022 Evaluation and management of inpatient CAMILLE [facility] Start: 09-27-2022 End: 09-29-2022 Evaluation and management of inpatient Iman Argueta DO Work Phone: [facility] 2E TELEMETRY Comment on above: Hypomagnesemia (Prim jose Dx); Diarrhea, unspecified type; Weakness Start: 03-03-2022 Telephone encounter Chitra jarrell RN Work Phone: [facility] Comment on above: Follow Up Start: 01-20-2022 End: 01-20-2022 ambulatory SALONI HUSSEIN [facility] Start: 01-20-2022 End: 01-20-2022 Subsequent hospital visit by physician Saloni Hussein MD Work Phone: [facility] General Surgery Comment on above: Post-op pain (Primar y Dx) Start: 01-13-2022 ambulatory UNKNOWN PROVIDER [facility] Start: 01-13-2022 Encounter for other preprocedural examination SALONI HUSSEIN [facility] Start: 01-13-2022 End: 01-13-2022 Subsequent hospital visit by physician Saloni Hussein MD Work Phone: [facility] Pre-Admit Testing Comment on above: Arrived Start: 12-14-2021 End: 12-14-2021 Subsequent hospital visit by physician Gloria Solomon APRN - RN [employer] Work Phone: [facility] Vascular Lab Comment on above: Arrived Start: 11-24-2021 End: 11-24-2021 Subsequent hospital visit by physician Gloria Solomon APRN - [employer] Work Phone: [facility] Nuclear Medicine Comment on above: Arrived Start: 10-01-2021 End: 10-01-2021 Emergency department patient visit Angel Ch MD Work Phone: [facility] Comment on above: Abdominal pain, epig astric (Primary Dx) Start: 07-19-2021 End: 07-21-2021 Evaluation and management of inpatient Tom Des ANTHONY Work Phone: [facility] TELEMETRY Comment on above: Palpitations (Primar y Dx); Hyperkalemia; Hypomagnesemia Start: 01-30-2020 End: 01-30-2020 Subsequent hospital visit by physician Camille Goodman Work Phone: [facility] Nuclear Medicine Comment on above: Arrived Start: 01-08-2020 End: 01-08-2020 Subsequent hospital visit by physician [facility] Comment on above: Arrived Start: 06-13-2019 End: 06-13-2019 Subsequent hospital visit by physician Dania Falcon Work Phone: [facility] Start: 05-21-2019 End: 05-21-2019 Subsequent hospital visit by physician Dania Falcon MD Work Phone: [facility] Laboratory Start: 02-02-2019 End: 02-02-2019 Subsequent hospital visit by physician Dania Falcon Work Phone: [facility] Laboratory Start: 01-02-2019 End: 01-02-2019 Subsequent hospital visit by physician Dania Falcon Work Phone: [facility] Laboratory Start: 12-10-2018 End: 12-12-2018 Evaluation and management of inpatient Dima Mckeon Work Phone: [facility] MED SURG Comment on above: Acute diverticulitis (Primary Dx); Failure of outpatient treatment Procedures Date Procedure Procedure Detail Performing Clinician Start: 09-29-2022 Potassium serum plasma/whole blood Nat Lowery MD Work Phone: Start: 09-29-2022 Basic metabolic pane l calcium total Aliaksandr Ramaniuk DO Work Phone: Start: 09-28-2022 Basic metabolic pane l calcium total Aliaksandr Ramaniuk DO Work Phone: Start: 09-27-2022 Basic metabolic pane l calcium total Aliaksandr Ramaniuk DO Work Phone: Start: 09-27-2022 Iadna-dna/rna gi pth gn multiplex probe tq 12-25 Jose Raul Serna [employer] - [employer] Work Phone: Start: 09-27-2022 Ecg routine ecg w/le ast 12 lds trcg only w/o i&r Jose Raul Serna [employer] - [employer] Work Phone: Start: 09-27-2022 End: 09-27-2022 Basic metabolic panel calcium total Jose Raul Serna [employer] - [employer] Work Phone: Start: 09-27-2022 Acute hepatitis panel T melissa Serna [employer]EL[employer] - [employer] Work Phone: Start: 09-27-2022 Complete blood count with white cell differential, automated Jose Raul Serna [employer]EL[employer] - [employer] Work Phone: Start: 09-27-2022 Iadna respiratry pro be & rev trnscr 12-25 target Iman Argueta DO Work Phone: Start: 09-27-2022 Ecg routine ecg w/le ast 12 lds trcg only w/o i&r Iman Argueta DO Work Phone: Start: 09-27-2022 Thyrotropin [Units/v olume] in Serum or Plasma Iman Argueta DO Work Phone: Start: 09-27-2022 SARS-COV-2, FLU A/B, AND RSV COMBO Iman Argueta DO Work Phone: Start: 09-27-2022 Ct abdomen & pelvis w/o contrast material Iman Argueta DO Work Phone: Start: 09-27-2022 End: 09-27-2022 Comprehensive metabolic panel Iman Argueta DO Work Phone: Start: 09-27-2022 Thyrotropin [Units/v olume] in Serum or Plasma Iman Argueta DO Work Phone: Start: 12-14-2021 VL MESENTERIC ARTERY DUPLEX SCAN Gloria Solomon APRN [employer] Work Phone: Start: 11-24-2021 Gastric emptying jovita ging study Gloria Solomon [employer] Work Phone: Start: 10-02-2021 Lipid 1996 panel - S brianna or Plasma Iman Argueta DO Work Phone: Start: 10-01-2021 Urnls dip stick/tabl et rgnt auto w/o microscopy Angel Ch MD Work Phone: Start: 10-01-2021 Us abdominal real ti me w/image limited Angel Ch MD Work Phone: Start: 10-01-2021 Ct abdomen & pelvis w/o contrast material Angel Ch MD Work Phone: Start: 10-01-2021 Comprehensive metabo lic panel Angel Ch MD Work Phone: Start: 10-01-2021 Ecg routine ecg w/le ast 12 lds w/i&r Angel Ch MD Work Phone: Start: 07-21-2021 Ecg routine ecg w/le ast 12 lds w/i&r Raoul Vargas MD Work Phone: Start: 07-21-2021 Echo tthrc r-t 2d w/wom-mode compl spec&colr d Raoul Vargas MD Work Phone: Start: 07-21-2021 Assay of magnesium Rich andrea Goodman MD Work Phone: Start: 07-20-2021 Ecg routine ecg w/le ast 12 lds w/i&r Rosario Davenport DO Work Phone: Start: 07-20-2021 Assay of troponin quantitative Raoul Vargas MD Work Phone: Start: 07-20-2021 Assay of magnesium Rich andrea Goodman MD Work Phone: Start: 07-20-2021 Radiologic exam ches t 2 views Tom Nunes MD Work Phone: Start: 07-20-2021 Basic metabolic pane l calcium total Tom Nunes MD Work Phone: Start: 07-19-2021 Ecg routine ecg w/le ast 12 lds w/i&r Tom Nunes MD Work Phone: Start: 01-08-2020 Us abdominal real ti me w/image documentation Camille Goodman Work Phone: Start: 06-13-2019 Assay of magnesium Nick Falcon Work Phone: Start: 05-21-2019 Urine albumin quantitative Dania Falcon MD Work Phone: Start: 05-21-2019 Renal function panel Na sarah Falcon MD Work Phone: Start: 02-02-2019 Urine albumin quantitative Dania Falcon Work Phone: Start: 02-02-2019 25 hydroxy includes fractions if performed Dania Falcon Work Phone: Start: 02-02-2019 Assay of magnesium Natt havat Tanphaichitr Work Phone: Start: 02-02-2019 Assay of parathormone N atthavat Tanphaichitr Work Phone: Start: 02-02-2019 Blood count complete automated Natthavat Tanphaichitr Work Phone: Start: 02-02-2019 Renal function panel Na tthavat Tanphaichitr Work Phone: Start: 01-02-2019 Renal function panel Na tthavat Tanphaichitr Work Phone: Start: 12-29-2018 Colonoscopy Chitra jarrell RN Work Phone: Start: 12-28-2018 Colonoscopy Tom mclain MD Work Phone: Start: 12-10-2018 Urnls dip stick/tabl et rgnt auto w/o microscopy Dima Ashley Mike Work Phone: Start: 12-10-2018 Ct abdomen & pelvis w/o contrast material Dima Mckeon Work Phone: Start: 12-10-2018 Assay of lipase Dima Ashley Mike Work Phone: Start: 12-10-2018 Basic metabolic pane l calcium total Dima Ashley Mike Work Phone: Start: 12-10-2018 Blood count complete auto&auto difrntl wbc Dima Ashley Mike Work Phone: Start: 12-10-2018 Hepatic function panel Dima Ashley Mike Work Phone: Gallbladder structur e (body structure) REJI WELCH DO Hysterectomy REJI WELCH D O Plan of Treatment Date Care Activity Detail Author Start: 2037 RSV Vaccine (1 - 1-dose 75+ series) RSV Vaccine (1 - 1-dose 75+ series) [facility] Start: 12-28-2028 Screening for malignant neoplasm of colon [facility] Start: 10-14-2027 Diabetes Screening Diabetes Screening [facility] Start: 08-10-2027 Diabetes Screening Diabetes Screening [facility] Start: 2027 Pneumococcal 0-64 years Vaccine (2 of 2 - PPSV23) Pneumococcal 0-64 years Vaccine (2 of 2 - PPSV23) [facility] Start: 10-02-2026 Lipid panel [facility] Start: 11-24-2025 DTaP/Tdap/Td vaccine (2 - Td or Tdap) DTaP/Tdap/Td vaccine (2 - Td or Tdap) [facility] Start: 11-24-2025 DTaP/Tdap/Td vaccine (2 - Td) DTaP/Tdap/Td vaccine (2 - Td) [place], [place] Start: 11-24-2025 DTaP/Tdap/Td Vaccines (2 - Td or Tdap) DTaP/Tdap/Td Vaccines (2 - Td or Tdap) [facility] Start: 11-24-2025 Urine microalbumin profile [facility] Start: 10-13-2025 Complete blood count Hemoglobin/Hematocrit [facility] Start: 10-13-2025 Creatinine measurement Serum Creatinine [facility] Start: 09-29-2025 Diabetes Screening Diabetes Screening [facility] Start: 08-09-2025 Creatinine measurement Serum Creatinine [facility] Start: 07-30-2025 Complete blood count Hemoglobin/Hematocrit [facility] Start: 12-24-2024 Influenza vaccination Influenza Vaccine (Season Ended) [facility] Start: 11-15-2024 Basic metabolic 2000 panel - Serum or Plasma BASIC METABOLIC PANEL Lab Routine Hyperkalemia Expected: 11/15/2024 [facility] Work Phone: Comment on above: Expected: 11/15/2024 Start: 09-28-2024 End: 09-28-2024 Patient encounter procedure 09/28/2024 10:30 AM EDT Office Visit [facility] GENER[facility] SURGERY [facility] [address] [place], [place] [id number] Tamera Castelan MD [address] [place], [place] [id number] pd cath consult [facility] Comment on above: pd cath consult Start: 09-02-2024 25-HYDROXY D2+D3 25-HYDROXY D2+D3 Lab Routine Secondary hyperparathyroidism of renal origin (HCC) Expected: 09/02/[address] [facility] Comment on above: Expected: 09/02/2024 Start: 09-02-2024 CBC panel - Blood by Automated count COMPLETE BLOOD COUNT Lab Routine 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 Expected: 09/02/2024 [facility] Work Phone: Comment on above: Expected: 09/02/2024 Start: 09-02-2024 Parathyrin.intact [Mass/volume] in Serum or Plasma PTH INTACT Lab Routine Secondary hyperparathyroidism of renal origin (HCC) Expected: 09/02/[address] [facility] Comment on above: Expected: 09/02/2024 Start: 09-02-2024 Protein/Creatinine [Mass Ratio] in Urine PROTEIN / CREATININE RATIO Lab Routine 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 [address] [place] [address] Jasiel Ray MD [address] [place] [address] Chronic kidney disease, stage 4 (severe) (HCC) [facility] Comment on above: Chronic kidney disease, stage 4 (severe) (HCC) Start: 12-30-[address] [facility] Start: 12-30-2023 COLORECTAL CANCER SCREENING COLORECTAL CANCER SCREENING [facility] Start: 12-30-2023 Screening for malignant neoplasm of colon [facility] Start: 12-25-2023 Covid-19 Vaccine () Covid-19 Vaccine () [facility] Start: 12-25-2023 Influenza vaccination [facility] Start: 11-29-2023 Lipid panel Lipid screen [facility] Start: 11-29-2023 Lipid screen Lipid screen [place], [place] Start: 09-28-2023 Thyroid stimulating hormone measurement TSH Level [facility] Start: 12-24-2022 COVID-19 Vaccine ( season) COVID-19 Vaccine () [facility] Start: 12-24-2022 Influenza vaccination [facility] Start: 10-02-2022 Lipid panel Lipids [facility] Start: 10-02-2022 Screening for malignant neoplasm of colon [facility] Start: 07-21-2022 Creatinine measurement Creatinine monitoring [facility] Start: 07-21-2022 Potassium monitoring Potassium monitoring [facility] Start: 2022 DIABETES SCREEN DIABETES SCREEN [facility] Start: 2022 Hepatitis B Vaccine (1 of 3 - Risk 3-dose series) Hepatitis B Vaccine (1 of 3 - Risk 3-dose series) [facility] Start: 2022 RSV Immunization aged 60 or older (1 - 1-dose 60+ series) RSV Immunization aged 60 or older (1 - 1-dose 60+ series) [facility] Start: 2022 RSV Vaccine (1 - 1-dose 60+ series) RSV Vaccine (1 - 1-dose 60+ series) [facility] Start: 01-20-2022 Subsequent hospital visit by physician 01/20/2022 Hospital Encounter General Surgery Saloni Hussein MD [address] [place], [place] [phone] [facility] General Surgery Start: 12-24-2021 Influenza vaccination [facility] Start: 12-14-2021 End: 12-14-2021 Patient encounter procedure 12/14/2021 Appointment Vascular Lab Gloria Solomon, KATH - RN [employer] [address] [place] [address] [facility] Start: 11-23-2021 Influenza vaccination Flu vaccine (#1) [facility] Start: 04-25-2021 DEPRESSION ASSESSMENT DEPRESSION ASSESSMENT [facility] Start: 03-04-2021 COVID-19 Vaccine (3 - Booster for Moderna series) COVID-19 Vaccine (3 - Booster for Moderna series) [facility] Start: 02-04-2021 PNEUMOCOCCAL (3 - PCV) PNEUMOCOCCAL (3 - PCV) [facility] Start: 02-04-2021 Pneumococcal 0-64 years Vaccine (2 - PCV) Pneumococcal 0-64 years Vaccine (2 - PCV) [facility] Start: 02-04-2021 Pneumococcal vaccination Pneumococcal Vaccine (3 of 3 - PCV) [facility] Start: 02-04-2021 Pneumococcal Vaccine: 50+ (3 of 3 - PCV) Pneumococcal Vaccine: 50+ (3 of 3 - PCV) [facility] Start: 02-04-2021 Pneumococcal Vaccine: Pediatrics (0 to 5 Years) and At-Risk Patients (6 to 64 Years) (2 - PCV) Pneumococcal Vaccine: Pediatrics (0 to 5 Years) and At-Risk Patients (6 to 64 Years) (2 - PCV) [facility] Start: 02-04-2021 Pneumococcal Vaccine: Pediatrics (0 to 5 Years) and At-Risk Patients (6 to 64 Years) (2 of 2 - PCV) Pneumococcal Vaccine: Pediatrics (0 to 5 Years) and At-Risk Patients (6 to 64 Years) (2 of 2 - PCV) [facility] Start: 11-28-2020 Breast cancer screen Breast cancer screen [place], [place] Start: 11-28-2020 Screening for malignant neoplasm of breast Breast cancer screen [facility] Start: 11-27-2020 COVID-19 VACCINE (3 - Booster for Moderna series) COVID-19 VACCINE (3 - Booster for Moderna series) [facility] Start: 05-21-2020 Creatinine measurement Creatinine monitoring [facility], [place] Start: 05-21-2020 Creatinine monitoring Creatinine monitoring [place], [place] Start: 05-21-2020 Potassium monitoring Potassium monitoring [place], [place] Start: 05-08-2020 Screening for malignant neoplasm of lung Low dose CT lung screening [facility] Start: 02-03-2020 Creatinine monitoring Creatinine monitoring [facility] Work Phone: Start: 02-03-2020 Potassium monitoring Potassium monitoring [facility] Work Phone: Start: 01-03-2020 Creatinine monitoring Creatinine monitoring [facility] , [place] Start: 01-03-2020 Potassium monitoring Potassium monitoring [place], [place] Start: 12-25-2019 Influenza vaccination Flu vaccine (#1) [place] Start: 12-11-2019 Creatinine monitoring Creatinine monitoring [place], [place] Start: 12-11-2019 Potassium monitoring Potassium [place] Start: 11-29-2019 Lipid panel Lipids [facility] Start: 11-29-2019 Screening for malignant neoplasm of breast Mammogram Screening [facility] Start: 12-24-2018 Influenza vaccination Flu vaccine (#1) [place], [place] Start: 12-23-2015 DTaP/Tdap/Td Vaccines (2 - Td or Tdap) DTaP/Tdap/Td Vaccines (2 - Td or Tdap) [facility] Start: 2012 Colon cancer screen colonoscopy Colon cancer screen colonoscopy [place], [place] Start: 2012 Screening for malignant neoplasm of colon Colon cancer screen colonoscopy [place] Start: 2012 Screening for malignant neoplasm of lung [facility] Start: 2012 Shingles Vaccine (1 of 2) Shingles Vaccine (1 of 2) [facility] Start: 2012 Zoster Vaccines (1 of 2) Zoster Vaccines (1 of 2) [facility] Start: 2007 COLOGUARD (FIT-DNA) COLOGUARD (FIT-DNA) [facility] Start: [address] COLONOGRAPHY [facility] Start: 2007 FECAL OCCULT BLOOD FECAL OCCULT BLOOD [facility] Start: 2007 LIPID SCREEN LIPID SCREEN [facility] Start: 2007 Screening for malignant neoplasm of colon [facility] Start: [address] [facility] Start: 2002 Diabetes screen Diabetes screen [place], [place] Start: [address] [facility] Start: 2002 Screening for malignant neoplasm of breast Mammogram [facility] Start: 1997 Diabetes screen Diabetes screen [facility] Start: 1992 HPV TESTING HPV TESTING [facility] Start: 1992 Screening for malignant neoplasm of cervix [facility] Start: 1983 Cervical cancer screen Cervical cancer screen [place], [place] Start: 1983 PAP TESTING PAP TESTING [facility] Start: 1983 Screening for malignant neoplasm of cervix [facility] Start: 1981 Hepatitis A Vaccine (1 of 2 - Risk 2-dose series) Hepatitis A Vaccine (1 of 2 - Risk 2-dose series) [facility] Start: 1981 SHINGRIX VACCINE (1 of 2) SHINGRIX VACCINE (1 of 2) [facility] Start: 1980 Annual PCP Team Chronic Disease Visit Annual PCP Team Chronic Disease Visit [facility] Start: 1980 Anxiety Screening Anxiety Screening [facility] Start: 1980 Depression Screening Depression Screening [facility] Start: 1980 Diabetes mellitus screening Diabetes Screening [facility] Start: 1980 Hepatitis C screening Hepatitis C screen [facility] Start: 1977 HIV screen HIV screen [place], [place] Start: 1977 HIV screening HIV screen [facility] Start: 1974 Depression Screen Depression Screen [facility] Start: 1974 Depression Screening Depression Screening [facility] Start: 1968 Pneumococcal 0-64 years Vaccine (1 of 1 - PPSV23) Pneumococcal 0-64 years Vaccine (1 of 1 - PPSV23) [place], [place] Start: 1967 COVID-19 Vaccine (1) COVID-19 Vaccine (1) [facility] Start: 1963 HEPATITIS A (1 of 2 - Risk 2-dose series) HEPATITIS A (1 of 2 - Risk 2-dose series) [facility] Start: 1963 MMR Vaccines (1 of 1 - Standard series) MMR Vaccines (1 of 1 - Standard series) [facility] Start: 1962 Hepatitis C screen Hepatitis C screen [place], [place] Start: 1962 Hepatitis C screening Hepatitis C screen [facility] Start: 1962 HIV screening HIV Screening [facility] Start: 1962 Screening for malignant neoplasm of colon [facility] Blood glucose - POCT Blood gluco se - POCT Point of Care Testing STAT As Needed until discontinued starting 01/20/2022 [facility] Work Phone: Comment on above: As Needed until discontinued starting CBC W Auto Differential panel - Blood CBC with Auto Differential Lab Routine Daily until discontinued starting 07/20/2021, 2 [facility] Work Phone: Comment on above: Daily until discontinued starting 2021, 2 completed Comprehensive Metabolic Panel w/ Reflex to MG Comprehensive Metabolic Panel w/ Reflex to MG Lab Routine Daily until discontinued starting 07/20/2021, 2 completed [employer] Work Phone: Comment on above: Daily until discontinued starting 2021, 2 completed End: 01-20-2022 Creatinine [Mass/volume] in Serum or Plasma Creatinine, serum Lab STAT One Time for 1 Occurrences starting 01/20/2022 until 01/20/2022 [employer] Work Phone: Comment on above: One Time for 1 Occurrences starting 12/25 until 01/20/2022 EKG 12 Lead EKG 12 Lead ECG Routine 07/21/2021 10:05 AM EDT [employer] Work Phone: End: 01-20-2022 INITIATE PACU OXYGEN THERAPY PROTOCOL Initiate PACU Oxygen Therapy Protocol Respiratory Care Routine Continuous until discontinued starting 01/20/2022 [employer] Work Phone: Comment on above: Continuous until discontinued starting 0 01/20/2022 End: 01-20-2022 Intermittent pulse oximetry Pulse Oximetry Spot Check Respiratory Care Routine One Time for 1 Occurrences starting 01/20/2022 until 01/20/2022 [employer] Work Phone: Comment on above: One Time for 1 Occurrences starting 12/25 until 01/20/2022 Magnesium [Mass/volume] in Serum or Plasma Magnesium Lab Routine Daily until discontinued starting 07/20/2021, 2 completed [employer] Work Phone: Comment on above: Daily until discontinued starting 2021, 2 completed Nasal Cannula Oxygen Nasal Cannu la Oxygen Respiratory Care Routine As Needed until discontinued starting 01/20/2022 [employer] Work Phone: Comment on above: As Needed until discontinued starting Nasal Cannula Oxygen Nasal Cannu la Oxygen Respiratory Care Routine As Needed until discontinued starting 01/20/2022 [employer] Work Phone: Comment on above: As Needed until discontinued starting End: 01-30-2020 NM HEPATOBILIARY W/O CCK NM HEPATOBILIARY W/O CCK Imaging Routine Once for 1 Occurrences starting 01/30/2020 until 01/30/2020 [facility] [place] Comment on above: Once for 1 Occurrences starting 01/30/20 20 until 01/30/2020 NM HEPATOBILIARY W/O CCK NM HEPATOBILIARY W/O CCK Imaging Routine 01/30/2020 9[facility]50 [facility] oxygen Nonrebreather mask oxygen Respiratory Care Routine As Needed until discontinued starting 01/20/2022 [employer] Work Phone: Comment on above: As Needed until discontinued starting Nonrebreather mask oxygen Nonrebreather mask oxygen Respiratory Care Routine As Needed until discontinued starting 01/20/2022 [employer] Work Phone: Comment on above: As Needed until discontinued starting Oxygen therapy [Minimum Data Set] Initiate Oxygen Therapy Protocol Respiratory Care Routine As Needed until discontinued starting 01/20/2022 [facility] Work Phone: Comment on above: As Needed until discontinued starting End: 01-20-2022 Potassium w/ Reflex to Magnesium Potassium w/ Reflex to Magnesium Lab Routine One Time for 1 Occurrences starting 01/20/2022 until 01/20/2022 [facility] Work Phone: Comment on above: One Time for 1 Occurrences starting 12/25 until 01/20/2022 End: 01-20-2022 , urine POCT , urine POCT Point of Care Testing Routine One Time for 1 Occurrences starting 01/20/2022 until 01/20/2022 [facility] Work Phone: Comment on above: One Time for 1 Occurrences starting 12/25 until 01/20/2022 End: 01-20-2022 Protime-INR Protime-INR Lab STAT One Time for 1 Occurrences starting 01/20/2022 until 01/20/2022 [facility] Work Phone: Comment on above: One Time for 1 Occurrences starting 12/25 until 01/20/2022 Spirometry panel Incentive carolina [facility]ry Respiratory Care Routine Q1H PRN until discontinued starting 01/20/2022 [facility] Work Phone: Comment on above: Q1H PRN until discontinued starting 12/25 Thyrotropin [Units/volume] in Serum or Plasma TSH Lab Routine Daily until discontinued starting 07/20/2021, 2 completed [facility] Work Phone: Comment on above: Daily until discontinued starting 2021, 2 completed End: 06-17-2023 [facility] Work Phone: Comment on above: Once for 1 Occurrences starting 06/17/19 until 06/17/2023 Immunizations Immunization Date Immunization Notes Care Provider Kya miguel 02-15-2023 influenza virus vacc ine, unspecified formulation Jimi Jimenez RN [facility] 02-24-2021 influenza, injectabl e, quadrivalent, preservative free Chitra Grimes RN Work Phone: [facility] Work Phone: 02-24-2021 influenza virus vacc ine, unspecified formulation Iman Argueta DO Work Phone: [facility] 10-02-2020 Moderna SARS-CoV-2 Vaccination Iman Argueta DO Work Phone: [facility] 09-04-2020 Moderna SARS-CoV-2 Vaccination Iman Argueta DO Work Phone: [facility] 02-27-2020 influenza, injectabl e, quadrivalent, preservative free Chitra Grimes RN Work Phone: [facility] Work Phone: 02-05-2020 pneumococcal polysaccharide vaccine, 23 valent Chitra Grimes RN Work Phone: [facility] Work Phone: 04-23-2019 pneumococcal polysaccharide vaccine, 23 valent Chitra Grimes RN Work Phone: [facility] Work Phone: 02-19-2019 pneumococcal polysaccharide vaccine, 23 valent Chitra Grimes RN Work Phone: [facility] Work Phone: 02-13-2019 influenza, injectabl e, quadrivalent, preservative free Chitra Grimes RN Work Phone: [facility] Work Phone: 02-12-2016 influenza, injectabl e, quadrivalent, preservative free Chitra Grimes RN Work Phone: [facility] Work Phone: 11-25-2015 tetanus toxoid, redu nichol diphtheria toxoid, and acellular pertussis vaccine, adsorbed Chitra Grimes RN Work Phone: [facility] Work Phone: Payers Date Payer Category Payer Self-pay 2016 [facility] PPO [id number] 2016 Unknown 2016 Unknown [id number] 1962 Unknown [id number] 1962 Unknown [id number] 1962 Unknown [id number] Unknown [id number] Social History Date Type Detail Facility Start: 10-21-2017 End: 12-10-2018 Tobacco smoking status NHIS Current every day smoker [facility] History of tobacco use Cigarette Smoker [facility] Start: 12-10-2018 End: 09-28-2024 Cigarettes smoked current (pack per day) - Reported [facility] Start: 12-10-2018 End: 01-29-2019 Alcohol intake Current non-drinker of alcohol (finding) [facility] Work Phone: Start: 12-10-2018 Tobacco Comment Pt stated woul d quit if need a kidney [facility] Start: 1960 Sex Assigned At Not on file [facility] Start: 10-21-2017 End: 12-10-2018 Tobacco use and exposure Never used [facility] [facility] Start: 12-10-2018 End: 09-28-2024 Alcohol intake No [facility] Start: 12-10-2018 Tobacco Comment Pt stated woul d quit if need a kidney [facility] Work Phone: Start: 07-09-2021 End: 09-27-2022 Exposure to SARS-CoV-2 (event) Not sure [facility] PHQ2 Score 0 [facility] Start: 11-26-2023 Tobacco smoking status Heavy t obacco smoker (finding) [facility] Sex Assigned At Female [facility] Functional Status Date Assessment Result Facility 11-26-2023 Functional Status Activity Jean-Claude tance Independent [facility] 11-26-2023 Functional Status Standard Safet y ID band on, Allergy Band on, Call device within reach, Bed in low position, Wheels locked, Bedside Cart Locked, Safety level maintained [facility] Mental Status Date Assessment Result Facility 11-26-2023 Mental Status Orientation Oriented x 4 [facility] 11-26-2023 Mental Status Orientation Asse ssment Oriented x 4 [facility] Clinical Notes 07-21-2021 to 09-28-2024 Tamera Castelan MD - 09/28/2024 2:43 PM Jimi Corona RN - 11/16/2023 4:40 PM Lacho Lowery MD - 09/29/2022 1:49 PM EDTDischarge Instr - ActivityDischarge Instr - DietAttachments Note Date & Type Note Facility 09-28-2024 Note HNO ID: [id number] Author: Tamera CASTELAN MD Service: ? Author Type: Physician Type: Progress Notes Filed: 09/28/2024 15:09 Note Text: Dallin Castelan MD General Surgery [address] [place] [address], [address] [place] [address] Patient referred by: No referring provider defined for this encounter. CANDE Boyer is a 64 year old White female who is referred in consideration of placing a peritoneal dialysis catheter. She is seen today with her [id number] She has CKD stage V. Her GFR has been 15 or last for more than a year. While her creatinine is remaining approximately the same between 3.5 and 4 she is overall feeling worse and having problems with hyperkalemia. 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 This was biopsy-proven. Her only abdominal surgeries are a laparoscopic cholecystectomy and a hysterectomy. She has chronic anemia-likely related to your chronic renal disease . Her hemoglobin has been about 9.5 SUBJECTIVE Review of Systems Constitutional: Negative. Eyes: Negative. Respiratory: Negative. Cardiovascular: Negative. Gastrointestinal: Negative. Genitourinary: Negative. Musculoskeletal: Negative. Skin: Negative. Neurological: Negative. Endo/Heme/Allergies: Negative. Psychiatric/Behavioral: Negative. PAST MEDICAL HISTORY Diagnosis Date Abnormal renal function Anemia in chronic kidney disease Chronic kidney disease (CKD), stage IV (severe) (HCC) Colon polyps COPD (chronic obstructive pulmonary disease) (HCC) Fibromyalgia Focal segmental glomerulosclerosis GERD (gastroesophageal reflux disease) History of rectal bleeding HTN (hypertension) Hyperkalemia Hypomagnesemia Hypothyroid Osteoarthritis Thyroid activity decreased PAST SURGICAL HISTORY Procedure Laterality Date COLONOSCOPY 05/13/2011 Hyperplastic Polyps x2 Benign COLONOSCOPY 12/28/2018 tubular and hyperplastic polyps, diverticulosis EGD 05/07/2011 patient unsure of having this procedure EGD 01/19/2018 [place] Grade B reflux esophagitis. Medium-sized hiatal hernia.Chronic gastritis.Gaping lower esophageal sphincter PAST SURGICAL HISTORY OF 2009 Hysterectomy, w/oopherectomy PAST SURGICAL HISTORY OF Right 2016 Torn menicus repair PAST SURGICAL HISTORY OF Bladder stretched as a child Social History Tobacco Use Smoking status: Every Day Types: Cigarettes Smokeless tobacco: Never Substance Use Topics Alcohol use: No Drug use: No FAMILY HISTORY Problem Relation Age of Onset Hypertension Mother Diabetes Mother Hypertension Father Diabetes Father ALLERGIES Allergen Reactions Acetaminophen GI Upset Avelox [Moxifloxaci* Unknown Codeine Unknown, Cough, Hives, GI Upset Dilaudid [Hydromorp* Unknown Hydromorphone Other: See Comments Morphine Unknown Moxifloxacin Hives, Vomiting Oxycodone GI Upset Penicillins Unknown Oxycodone-Acetamino* Unknown, Hives, GI Upset Current Outpatient Medications Medication Sig Magnesium Chloride (SLOW-MAG) 71.5 mg TbEC Take 1 tablet by mouth three times daily. (Patient taking differently: Take 1 tablet by mouth four times daily.) omeprazole (PRILOSEC) 20 mg capsule Take 1 capsule by mouth twice daily. (Patient taking differently: Take 20 mg by mouth once daily.) amLODIPine (NORVASC) 5 mg tablet levothyroxine (SYNTHROID) 50 mcg tablet Take 50 mcg by mouth once daily. ergocalciferol, vitamin D2, (VITAMIN D2 ORAL) Take by mouth once daily. sodium bicarbonate 650 mg tablet Take 650 mg by mouth four times daily. rosuvastatin (CRESTOR) 5 mg tablet Take 5 mg by mouth once daily. (Patient not taking: Reported on 09/28/2024) famotidine (PEPCID) 20 mg tablet Take 2 tablets by mouth once daily. magnesium oxide (MAG-OX) 400 mg tablet Take 1 tablet by mouth twice daily. Fenofibric Acid 105 mg tab Take 1 tablet by mouth once daily. 120 mg daily (Patient not taking: Reported on 09/28/2024) No current facility-administered medications for this visit. OBJECTIVE BP 148/78 Pulse 77 Resp 20 Ht 162.6 cm (5' 4) Wt 93 kg (205 lb) BMI 35.19 kg/m? BMI 35.19 kg/(m2) Physical Exam Vitals reviewed. Constitutional: General: She is not in acute distress. Appearance: She is obese. She is not ill-appearing. Cardiovascular: Rate and Rhythm: Normal rate and regular rhythm. Heart sounds: Normal heart sounds. Pulmonary: Breath sounds: Normal breath sounds. Abdominal: General: Abdomen is flat. There is no distension. Palpations: Abdomen is soft. There is no mass. Tenderness: There is no abdominal tenderness. Hernia: No hernia is present. Skin: General: Skin is warm and dry. Neurological: General: No focal deficit present. Mental Status: She is alert. Psychiatric: Mood and Affect: Mood normal. Behavior: Behavior normal. Thought Content: Thought con (more content not included)... [facility] 09-28-2024 History of Present illness Narrative Images from the original note were not included. Dallin Castelan MD General Surgery [facility], [address] [place] [address] Patient referred by: No referring provider defined for this encounter. CANDE Boyer is a 64 year old White female who is referred in consideration of placing a peritoneal dialysis catheter. She is seen today with her [id number] She has CKD stage V. Her GFR has been 15 or last for more than a year. While her creatinine is remaining approximately the same between 3.5 and 4 she is overall feeling worse and having problems with hyperkalemia. 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 This was biopsy-proven. Her only abdominal surgeries are a laparoscopic cholecystectomy and a hysterectomy. She has chronic anemia-likely related to your chronic renal disease . Her hemoglobin has been about 9.5 SUBJECTIVE Review of Systems Constitutional: Negative. Eyes: Negative. Respiratory: Negative. Cardiovascular: Negative. Gastrointestinal: Negative. Genitourinary: Negative. Musculoskeletal: Negative. Skin: Negative. Neurological: Negative. Endo/Heme/Allergies: Negative. Psychiatric/Behavioral: Negative. PAST MEDICAL HISTORY Diagnosis Date Abnormal renal function Anemia in chronic kidney disease Chronic kidney disease (CKD), stage IV (severe) (HCC) Colon polyps COPD (chronic obstructive pulmonary disease) (HCC) Fibromyalgia Focal segmental glomerulosclerosis GERD (gastroesophageal reflux disease) History of rectal bleeding HTN (hypertension) Hyperkalemia Hypomagnesemia Hypothyroid Osteoarthritis Thyroid activity decreased PAST SURGICAL HISTORY Procedure Laterality Date COLONOSCOPY 05/13/2011 Hyperplastic Polyps x2 Benign COLONOSCOPY 12/28/2018 tubular and hyperplastic polyps, diverticulosis EGD 05/07/2011 patient unsure of having this procedure EGD 01/19/2018 [place] Grade B reflux esophagitis. Medium-sized hiatal hernia.Chronic gastritis.Gaping lower esophageal sphincter PAST SURGICAL HISTORY OF 2009 Hysterectomy, w/oopherectomy PAST SURGICAL HISTORY OF Right 2016 Torn menicus repair PAST SURGICAL HISTORY OF Bladder stretched as a child Social History Tobacco Use Smoking status: Every Day Types: Cigarettes Smokeless tobacco: Never Substance Use Topics Alcohol use: No Drug use: No FAMILY HISTORY Problem Relation Age of Onset Hypertension Mother Diabetes Mother Hypertension Father Diabetes Father ALLERGIES Allergen Reactions Acetaminophen GI Upset Avelox [Moxifloxaci* Unknown Codeine Unknown, Cough, Hives, GI Upset Dilaudid [Hydromorp* Unknown Hydromorphone Other: See Comments Morphine Unknown Moxifloxacin Hives, Vomiting Oxycodone GI Upset Penicillins Unknown Oxycodone-Acetamino* Unknown, Hives, GI Upset Current Outpatient Medications Medication Sig Magnesium Chloride (SLOW-MAG) 71.5 mg TbEC Take 1 tablet by mouth three times daily. (Patient taking differently: Take 1 tablet by mouth four times daily.) omeprazole (PRILOSEC) 20 mg capsule Take 1 capsule by mouth twice daily. (Patient taking differently: Take 20 mg by mouth once daily.) amLODIPine (NORVASC) 5 mg tablet levothyroxine (SYNTHROID) 50 mcg tablet Take 50 mcg by mouth once daily. ergocalciferol, vitamin D2, (VITAMIN D2 ORAL) Take by mouth once daily. sodium bicarbonate 650 mg tablet Take 650 mg by mouth four times daily. rosuvastatin (CRESTOR) 5 mg tablet Take 5 mg by mouth once daily. (Patient not taking: Reported on 09/28/2024) famotidine (PEPCID) 20 mg tablet Take 2 tablets by mouth once daily. magnesium oxide (MAG-OX) 400 mg tablet Take 1 tablet by mouth twice daily. Fenofibric Acid 105 mg tab Take 1 tablet by mouth once daily. 120 mg daily (Patient not taking: Reported on 09/28/2024) No current facility-administered medications for this visit. OBJECTIVE BP 148/78 Pulse 77 Resp 20 Ht 162.6 cm (5' 4) Wt 93 kg (205 lb) BMI 35.19 kg/m BMI 35.19 kg/(m^2) Physical Exam Vitals reviewed. Constitutional: General: She is not in acute distress. Appearance: She is obese. She is not ill-appearing. Cardiovascular: Rate and Rhythm: Normal rate and regular rhythm. Heart sounds: Normal heart sounds. Pulmonary: Breath sounds: Normal breath sounds. Abdominal: General: Abdomen is flat. There is no distension. Palpations: Abdomen is soft. There is no mass. Tenderness: There is no abdominal tenderness. Hernia: No hernia is present. Skin: General: Skin is warm and dry. Neurological: General: No focal deficit present. Mental Status: She is alert. Psychiatric: Mood and Affect: Mood normal. Behavior: Behavior normal. Thought Content: Thought content normal. Hemoglobin (g/dL) Date Value 07/30/2024 9.4 06/03/2021 10.9 Hematocrit (%) Date Value 07/30/2024 29.1 06/03/2021 36.0 WBC (k/uL) Date Value 07/30/2024 9.72 06/03/2021 9.61 Platelet Count (k/uL) Date Value 07/30/2024 339 06/03/2021 326 Creatinine Date Value Ref Range Status 08/09/2024 3.79 (H) 0.58 - 0.96 mg/dL Final AST Date Value Ref Range Status 02/21/2020 12 (L) 13 - 35 U/L Final ALT Date Value Ref Range Status 02/21/2020 9 7 - 38 U/L Final Bilirubin, Total (mg/dL) Date Value 02/21/2020 0.2 Bilirubin, Conjug (mg/dL) Date Value 02/21/2020 <0.2 ABO/RH(D) (no units) Date Value 2019 O POSITIVE Antibody Screen (no units) Date Value 2019 NEG WBC (k/uL) Date Value 07/30/2024 9.72 RBC (m/uL) Date Value 07/30/2024 3.23 (L) %DIG,%DBS DATA: Diagnostic tests reviewed for today's visit: Most recent labs Most recent imaging Plan Assessment and Plan: Encounter Diagnosis ICD-10-CM 1. Stage 5 chronic kidney disease not on chronic dialysis (HCC) N18.5 (N18.5) Stage 5 chronic kidney disease not on chronic dialysis (HCC) (primary encounter diagnosis) Comment: While renal function seems like it has been stable over the last year-her creatinine is generally between 3.5 and 4 and her GFR is 13-14-- She seems to be having more symptoms and is having problems with hyperkalemia and hypomagnesemia. This has prompted the plan to initiate dialysis. I discussed hemodialysis and peritoneal dialysis with her Peritoneal dialysis seems like a better fit for her and she seems to be a reasonable candidate. I discussed the intended procedure along with the risks and benefits. She would like to postpone this if medically possible-at least for a few months -I will discuss with her scarrer Plan: Will plan a laparoscopic insertion of a peritoneal dialysis catheter The encounter diagnosis was Stage 5 chronic kidney disease not on chronic dialysis (HCC). (N18.5) Stage 5 chronic kidney disease not on chronic dialysis (HCC) (primary encounter diagnosis) Follow up: No follow-ups on file. A total of 30 minutes was spent in direct patient contact. Greater than 50% of the direct patient contact time was spent in counseling or coordination of care. Please Note: This office note has been created using [employer], a speech recognition software program, and may contain errors including punctuation, grammar, spelling, gender, and inappropriate words or phrases that pertain to the sytem. documented in this encounter [facility] 11-26-2023 Hospital Discharge instructions Patient Education 11/26/2023 17:25:09 Treating Wrist Fractures Treating Wrist Fractures A fractured bone starts to heal on its own right away. But a treatment called reduction may help you heal better. Reduction is a process that repositions your bones. The goal is to get them as close as possible to how they were before the break. Your healthcare provider will use one or more methods of reduction. An external fixator is a rigid bar that screws into the bone through tiny holes made in the skin. It holds the fractured segments of bone in place. A plate with tiny screws helps keep the bone stable and in place. Closed reduction If you have a clean break with little soft tissue damage, closed reduction will likely be used. Before the procedure, you may be given medicine to relax your muscles. Then your healthcare provider manually readjusts the position of the broken bone. A splint or cast will be worn while you heal. Open reduction If you have an open fracture (bone sticking out through the skin), badly misaligned sections of bone, or severe tissue injury, open reduction may be needed. You may be given medicine during the procedure to let you sleep and relax your muscles. Your healthcare provider then makes one or more cuts (incisions) to realign the bone and fix soft tissues. Pins, screws, plates, or a combination of implants may be used under the skin to hold the bone in place during healing. Another device that may be used is an external fixator. It holds the bones in the right position. It is surgically placed on the outside of the skin. The road to healing Fractures take about 6 weeks or more to heal. Keeping your hand raised above your heart can help control swelling, throbbing, and pain. Your healthcare provider may give you medicine to help ease pain. Don t remove a splint unless your healthcare provider says you can. Call your healthcare provider if your pain gets worse or if you notice a lot of swelling or redness. Sometimes these implants, especially wires and external fixators, may need to be removed after the broken bone has healed. [id number] [employer]. [address] [place] [address]. All rights reserved. This information is not intended as a substitute for professional medical care. Always follow your healthcare professional's instructions. 11/26/2023 17:24:42 Ankle Sprain (Adult) Ankle Sprain (Adult) An ankle sprain is a stretching or tearing of the ligaments that hold the ankle joint together. There are no broken bones. An ankle sprain is a common injury for both children and adults. It happens when the ankle turns, twists, or rolls in an awkward way. This can be caused by a sports injury. Or it can happen from doing something as simple as stepping on an uneven surface. Ligaments are made of tough connective tissue. Normally, ligaments stretch a certain amount and then go back to their normal place. A sprain happens when a ligament is forced to stretch more than the normal amount. A severe sprain can actually tear the ligaments. If you have a severe sprain, you may have felt or heard something like a pop when you were injured. Ankle sprains are given a grade depending on whether they are mild, moderate, or severe: Grade 1 sprain. A mild sprain with minor stretching and damage to the ligament. Grade 2 sprain. A moderate sprain where the ligament is partly torn. Grade 3 sprain. The most severe kind of sprain. The ligament is completely torn. Most sprains take about 4 to 6 weeks to heal. A severe sprain can take several months to recover. Your healthcare provider may order X-rays to be sure you don t have a fracture, or broken bone. The injured area will feel sore. Swelling and pain may make it hard to walk. You may need crutches if walking is painful. Or your provider may have you use a cast boot or air splint. This will depend on the grade of ankle sprain that you have. Home care For a Grade 1 sprain, use RICE (rest, ice, compression, and elevation): Rest your ankle. Don t walk on it. Ice should be used right away to help control swelling. Place an ice pack over the injured area for 20 minutes. Do this every 3 to 6 hours for the first 24 to 48 hours. Keep using ice packs to ease pain and swelling as needed. To make an ice pack, put ice cubes in a plastic bag that seals at the top. Wrap the bag in a clean, thin towel or cloth. Never put ice or an ice pack directly on the skin. The ice pack can be put right on the cast, bandage, or splint. As the ice melts, be careful that the cast, bandage, or splint doesn t get wet. If you have a boot, open it to apply an ice pack, unless told otherwise by your provider. Compression devices help to control swelling. They also keep the ankle from moving and support your injured ankle. These devices include dressings, bandages, and wraps. Elevate or raise your ankle above the level of your heart when sitting or lying down. This is very important for the first 48 hours. Follow the RICE guidelines for a Grade 2 sprain. This type of sprain will take longer to heal. Your provider may have you wear a splint, cast, or brace to keep your ankle from moving. If you have a Grade 3 sprain, you are at risk for long-term ankle instability. In rare cases, surgery may be needed. Your provider may have you wear a short leg cast or a walking boot for 2 to 3 weeks. After 48 hours, it may be helpful to apply heat for 20 minutes several times a day. You can do this with a heating pad or warm compress. Or you may want to go back and forth between using ice and heat. Never apply heat directly to the skin. Always wrap the heating pad or warm compress in a clean, thin towel or cloth. You may use kurz-qfr-ciqmssf pain medicine (NSAIDS or nonsteroidal anti-inflammatory drugs) to control pain, unless another pain medicine was prescribed. Talk with your provider before using these medicines if you have chronic liver or kidney disease, or have ever had a stomach ulcer or gastrointestinal bleeding. Follow any rehabilitation exercises your provider gives you. These can help you be more flexible and improve your balance and coordination. This is helpful in preventing long-term ankle problems. Prevention To help prevent ankle sprains, it s important to have good strength, balance, and flexibility. Be sure to: Always warm up before you exercise or do something very active Be careful when walking or running on uneven or cracked surfaces Wear shoes that are in good condition and fit well Listen to your body s signals to slow down when you are in pain or tired Follow-up care Any X-rays you had today don t show any broken bones, breaks, or fractures. Sometimes fractures don t show up on the first X-ray. Bruises and sprains can sometimes hurt as much as a fracture. These injuries can take time to heal completely. If your symptoms don t get better or they get worse, talk with your healthcare provider. You may need a repeat X-ray. Follow up with your healthcare provider, or as advised. Check for any warning signs listed below. When to seek medical advice Call your healthcare provider right away if any of these occur: Fever of 100.4 F (38 C) or higher, or as directed by your healthcare provider Chills The injury doesn t seem to be healing The swelling comes back The cast or splint has a bad smell The plaster cast or splint gets wet or soft The fiberglass cast or splint gets wet and does not dry for 24 hours The pain or swelling increases, or redness appears Your toes become cold, blue, numb, or tingly The skin is discolored (looks blue, purple, or enriquez), has blisters, or is irritated You re-injure your ankle [id number] [employer]. [address] [place] [address]. All rights reserved. This information is not intended as a substitute for professional medical care. Always follow your healthcare professional's instructions. 11/26/2023 17:24:37 Fall, Mechanical Mechanical Fall You have had a fall today. It appears that the cause is what is called mechanical. That means that you slipped, tripped, or lost your balance. If your fall had been because of fainting or a seizure, you might need other tests. It is normal to feel sore and tight in your muscles and back the next day, and not just the muscles you injured at first. Remember, all the parts of your body are connected, so while initially one area hurts, the next day another may hurt. Also, when you injure yourself, it causes inflammation, which then causes the muscles to tighten up and hurt more. After the initial worsening, it should gradually improve over the next few days. Do report more severe pain. Even without a definite head injury, you can still get a concussion from your head suddenly jerking forward, backward, or sideways when falling. Concussions and even bleeding can still happen, especially if you have had a recent injury or take blood thinner medicine. It is not unusual to have a mild headache and feel tired and even nauseous or dizzy. Home care Rest today and go back to your normal activities when you are feeling back to normal. If you were injured during the fall, follow the advice from your healthcare provider regarding care of your injury. At first, do not try to stretch out the sore spots. If there is a strain, stretching may make it worse. Massage may help relax the muscles without stretching them. You can use an ice pack or cold compress on and off to the sore spots 10 to 20 minutes at a time, as often as you feel comfortable. This may help reduce the inflammation, swelling and pain. If you have any scrapes or abrasions, they usually heal within 10 days. It is important to keep the abrasions clean while they initially start to heal. However, an infection may happen even with proper care, so watch for early signs of infection (such as warmth, redness, or swelling). Medicines Talk to your healthcare provider before taking new medicines, especially if you have other medical problems or are taking other medicines. If you need anything for pain, you can take acetaminophen or ibuprofen, unless you were given a different pain medicine to use. Talk with your healthcare provider before using these medicines if you have chronic liver or kidney disease, or ever had a stomach ulcer or gastrointestinal bleeding, or are taking blood thinner medicines. Be careful if you are given prescription pain medicines, narcotics, or medicine for muscle spasm. They can make you sleepy and dizzy, and can affect your coordination, reflexes, and judgment. Do not drive or do work where you can injure yourself when taking them. Fall prevention Fix, remove, or replace anything that caused your fall. Make your home safe by keeping walkways clear of objects you may trip over. Use nonslip pads under rugs. Don't use small area rugs or throw rugs. Don't walk in poorly lit areas. Don't stand on chairs or wobbly ladders. Use caution when reaching overhead or looking upward. This position can cause a loss of balance. Be sure your shoes fit properly, have nonslip bottoms and are in good condition. Be cautious when going up and down curbs, and walking on uneven sidewalks. If your balance is poor, consider using a cane or walker. Stay as active as you can. Balance, flexibility, strength, and endurance all come from exercise. They all play a role in preventing falls. If you have pets, know where they are before you stand up or walk so you don't trip over them. Limit alcohol intake. Alcohol can cause balance problems and increase the risk of falls. Use night lights. Have your eyes tested to be sure you are seeing well, even if you already wear glasses. Follow-up Follow up with your healthcare provider, or as advised. If X-rays or CT scans were done, you will be notified if there is a change in the reading, especially if it affects treatment. Call 911 Call 911 if any of these happen: Trouble breathing Confused or difficulty arousing Fainting or loss of consciousness Rapid or very slow heart rate Seizure Difficulty with speech or vision, weakness of an arm or leg Difficulty walking or talking, loss of balance, numbness or weakness in one side of your body, or facial droop When to seek medical advice Call your healthcare provider right away if any of these happen: Repeated mechanical falls, or unexplained falls Dizziness Severe headache Blood in vomit, stools (black or red color) [id number] [employer]. [address] [place] [address], [place] [address]. All rights reserved. This information is not intended as a substitute for professional medical care. Always follow your healthcare professional's instructions. Follow Up Care 11/26/2023 17:02:53 With:CLIVE ADAMS MD Address: [facility] [address] [place] [address] [phone] When:2-4 days With:CAMILLE GOODMAN MD Address: [address] [place] [id number] [phone] When:2-[address] [facility] 11-26-2023 Emergency department Discharge summary Discharge Instructions Thank you for allowing [facility] to assist you with your healthcare needs. The following is important discharge information regarding your hospital visit. Diagnosis from Today's Visit Ankle sprain Closed right wrist fracture Fall Fall Sprained ankle What to Do Next Instructions from Your Care Team Discharge Home Equipment - Ordered -- Walking Boot, Pneumatic Left, 2 month(s), 11/26/23 18:24:00 EDT Post Acute Orders No qualifying data available. You Need to Schedule the Following Appointments Follow Up with CLIVE ADAMS MD When:Within 2-4 days Where:[address] [place], [place] [address] [facility] [address] [place] [phone] Follow Up with CAMILLE GOODMAN MD When:Within 2-4 days Where:[address] [place] [id number] [phone] Allergies Avelox Dilaudid Percocet codeine morphine penicillin Medications Please ask your primary doctor or pharmacist before taking any other medication not listed, including over the counter drugs, herbal medications, vitamins and or supplements as they may interact with your home medications. What How Much When Why Instructions Last Dose New traMADol (Ultram 50 mg oral tablet) 1 tab(s) by mouth Every 6 hours as needed for for pain Sprained ankle Fall Duration: 3 Days Printed Prescription Please take this list to your next doctor s visit. Bring all medications you take, including over the counter medications, herbals and other supplements with you to your doctor s visit. Patients and families are reminded to discard old lists and to update any records with all medication providers or retail pharmacies. Education Materials Treating Wrist Fractures A fractured bone starts to heal on its own right away. But a treatment called reduction may help you heal better. Reduction is a process that repositions your bones. The goal is to get them as close as possible to how they were before the break. Your healthcare provider will use one or more methods of reduction. An external fixator is a rigid bar that screws into the bone through tiny holes made in the skin. It holds the fractured segments of bone in place. A plate with tiny screws helps keep the bone stable and in place. Closed reduction If you have a clean break with little soft tissue damage, closed reduction will likely be used. Before the procedure, you may be given medicine to relax your muscles. Then your healthcare provider manually readjusts the position of the broken bone. A splint or cast will be worn while you heal. Open reduction If you have an open fracture (bone sticking out through the skin), badly misaligned sections of bone, or severe tissue injury, open reduction may be needed. You may be given medicine during the procedure to let you sleep and relax your muscles. Your healthcare provider then makes one or more cuts (incisions) to realign the bone and fix soft tissues. Pins, screws, plates, or a combination of implants may be used under the skin to hold the bone in place during healing. Another device that may be used is an external fixator. It holds the bones in the right position. It is surgically placed on the outside of the skin. The road to healing Fractures take about 6 weeks or more to heal. Keeping your hand raised above your heart can help control swelling, throbbing, and pain. Your healthcare provider may give you medicine to help ease pain. Don t remove a splint unless your healthcare provider says you can. Call your healthcare provider if your pain gets worse or if you notice a lot of swelling or redness. Sometimes these implants, especially wires and external fixators, may need to be removed after the broken bone has healed. [id number] [employer]. [address] [place] [address]. All rights reserved. This information is not intended as a substitute for professional medical care. Always follow your healthcare professional's instructions. Ankle Sprain (Adult) An ankle sprain is a stretching or tearing of the ligaments that hold the ankle joint together. There are no broken bones. An ankle sprain is a common injury for both children and adults. It happens when the ankle turns, twists, or rolls in an awkward way. This can be caused by a sports injury. Or it can happen from doing something as simple as stepping on an uneven surface. Ligaments are made of tough connective tissue. Normally, ligaments stretch a certain amount and then go back to their normal place. A sprain happens when a ligament is forced to stretch more than the normal amount. A severe sprain can actually tear the ligaments. If you have a severe sprain, you may have felt or heard something like a pop when you were injured. Ankle sprains are given a grade depending on whether they are mild, moderate, or severe: Grade 1 sprain. A mild sprain with minor stretching and damage to the ligament. Grade 2 sprain. A moderate sprain where the ligament is partly torn. Grade 3 sprain. The most severe kind of sprain. The ligament is completely torn. Most sprains take about 4 to 6 weeks to heal. A severe sprain can take several months to recover. Your healthcare provider may order X-rays to be sure you don t have a fracture, or broken bone. The injured area will feel sore. Swelling and pain may make it hard to walk. You may need crutches if walking is painful. Or your provider may have you use a cast boot or air splint. This will depend on the grade of ankle sprain that you have. Home care For a Grade 1 sprain, use RICE (rest, ice, compression, and elevation): Rest your ankle. Don t walk on it. Ice should be used right away to help control swelling. Place an ice pack over the injured area for 20 minutes. Do this every 3 to 6 hours for the first 24 to 48 hours. Keep using ice packs to ease pain and swelling as needed. To make an ice pack, put ice cubes in a plastic bag that seals at the top. Wrap the bag in a clean, thin towel or cloth. Never put ice or an ice pack directly on the skin. The ice pack can be put right on the cast, bandage, or splint. As the ice melts, be careful that the cast, bandage, or splint doesn t get wet. If you have a boot, open it to apply an ice pack, unless told otherwise by your provider. Compression devices help to control swelling. They also keep the ankle from moving and support your injured ankle. These devices include dressings, bandages, and wraps. Elevate or raise your ankle above the level of your heart when sitting or lying down. This is very important for the first 48 hours. Follow the RICE guidelines for a Grade 2 sprain. This type of sprain will take longer to heal. Your provider may have you wear a splint, cast, or brace to keep your ankle from moving. If you have a Grade 3 sprain, you are at risk for long-term ankle instability. In rare cases, surgery may be needed. Your provider may have you wear a short leg cast or a walking boot for 2 to 3 weeks. After 48 hours, it may be helpful to apply heat for 20 minutes several times a day. You can do this with a heating pad or warm compress. Or you may want to go back and forth between using ice and heat. Never apply heat directly to the skin. Always wrap the heating pad or warm compress in a clean, thin towel or cloth. You may use znem-mnr-tkslmzd pain medicine (NSAIDS or nonsteroidal anti-inflammatory drugs) to control pain, unless another pain medicine was prescribed. Talk with your provider before using these medicines if you have chronic liver or kidney disease, or have ever had a stomach ulcer or gastrointestinal bleeding. Follow any rehabilitation exercises your provider gives you. These can help you be more flexible and improve your balance and coordination. This is helpful in preventing long-term ankle problems. Prevention To help prevent ankle sprains, it s important to have good strength, balance, and flexibility. Be sure to: Always warm up before you exercise or do something very active Be careful when walking or running on uneven or cracked surfaces Wear shoes that are in good condition and fit well Listen to your body s signals to slow down when you are in pain or tired Follow-up care Any X-rays you had today don t show any broken bones, breaks, or fractures. Sometimes fractures don t show up on the first X-ray. Bruises and sprains can sometimes hurt as much as a fracture. These injuries can take time to heal completely. If your symptoms don t get better or they get worse, talk with your healthcare provider. You may need a repeat X-ray. Follow up with your healthcare provider, or as advised. Check for any warning signs listed below. When to seek medical advice Call your healthcare provider right away if any of these occur: Fever of 100.4 F (38 C) or higher, or as directed by your healthcare provider Chills The injury doesn t seem to be healing The swelling comes back The cast or splint has a bad smell The plaster cast or splint gets wet or soft The fiberglass cast or splint gets wet and does not dry for 24 hours The pain or swelling increases, or redness appears Your toes become cold, blue, numb, or tingly The skin is discolored (looks blue, purple, or enriquez), has blisters, or is irritated You re-injure your ankle [id number] [employer]. [address] [place], [place] [id number]. All rights reserved. This information is not intended as a substitute for professional medical care. Always follow your healthcare professional's instructions. Mechanical Fall You have had a fall today. It appears that the cause is what is called mechanical. That means that you slipped, tripped, or lost your balance. If your fall had been because of fainting or a seizure, you might need other tests. It is normal to feel sore and tight in your muscles and back the next day, and not just the muscles you injured at first. Remember, all the parts of your body are connected, so while initially one area hurts, the next day another may hurt. Also, when you injure yourself, it causes inflammation, which then causes the muscles to tighten up and hurt more. After the initial worsening, it should gradually improve over the next few days. Do report more severe pain. Even without a definite head injury, you can still get a concussion from your head suddenly jerking forward, backward, or sideways when falling. Concussions and even bleeding can still happen, especially if you have had a recent injury or take blood thinner medicine. It is not unusual to have a mild headache and feel tired and even nauseous or dizzy. Home care Rest today and go back to your normal activities when you are feeling back to normal. If you were injured during the fall, follow the advice from your healthcare provider regarding care of your injury. At first, do not try to stretch out the sore spots. If there is a strain, stretching may make it worse. Massage may help relax the muscles without stretching them. You can use an ice pack or cold compress on and off to the sore spots 10 to 20 minutes at a time, as often as you feel comfortable. This may help reduce the inflammation, swelling and pain. If you have any scrapes or abrasions, they usually heal within 10 days. It is important to keep the abrasions clean while they initially start to heal. However, an infection may happen even with proper care, so watch for early signs of infection (such as warmth, redness, or swelling). Medicines Talk to your healthcare provider before taking new medicines, especially if you have other medical problems or are taking other medicines. If you need anything for pain, you can take acetaminophen or ibuprofen, unless you were given a different pain medicine to use. Talk with your healthcare provider before using these medicines if you have chronic liver or kidney disease, or ever had a stomach ulcer or gastrointestinal bleeding, or are taking blood thinner medicines. Be careful if you are given prescription pain medicines, narcotics, or medicine for muscle spasm. They can make you sleepy and dizzy, and can affect your coordination, reflexes, and judgment. Do not drive or do work where you can injure yourself when taking them. Fall prevention Fix, remove, or replace anything that caused your fall. Make your home safe by keeping walkways clear of objects you may trip over. Use nonslip pads under rugs. Don't use small area rugs or throw rugs. Don't walk in poorly lit areas. Don't stand on chairs or wobbly ladders. Use caution when reaching overhead or looking upward. This position can cause a loss of balance. Be sure your shoes fit properly, have nonslip bottoms and are in good condition. Be cautious when going up and down curbs, and walking on uneven sidewalks. If your balance is poor, consider using a cane or walker. Stay as active as you can. Balance, flexibility, strength, and endurance all come from exercise. They all play a role in preventing falls. If you have pets, know where they are before you stand up or walk so you don't trip over them. Limit alcohol intake. Alcohol can cause balance problems and increase the risk of falls. Use night lights. Have your eyes tested to be sure you are seeing well, even if you already wear glasses. Follow-up Follow up with your healthcare provider, or as advised. If X-rays or CT scans were done, you will be notified if there is a change in the reading, especially if it affects treatment. Call 911 Call 911 if any of these happen: Trouble breathing Confused or difficulty arousing Fainting or loss of consciousness Rapid or very slow heart rate Seizure Difficulty with speech or vision, weakness of an arm or leg Difficulty walking or talking, loss of balance, numbness or weakness in one side of your body, or facial droop When to seek medical advice Call your healthcare provider right away if any of these happen: Repeated mechanical falls, or unexplained falls Dizziness Severe headache Blood in vomit, stools (black or red color) [id number] [employer]. [address] [place] [address]. All rights reserved. This information is not intended as a substitute for professional medical care. Always follow your healthcare professional's instructions. Additional Information VACCINATE! IT SAVES LIVES! Members of the community who have not yet received the COVID-19 vaccine and would like to receive it can visit one of [facility] vaccine clinics. There are many vaccine clinic locations within the [facility]. For locations and available times, please visit [email or web address] It is important to note that some COVID mobile vaccine clinics are held outdoors and may be canceled in rainy or stormy conditions. To learn more about pediatric vaccinations (ages 5-11), we invite you to visit the [facility] webpage. [email or web address] To learn more about the COVID-19 vaccine, we invite you to visit the CDC website for a list of frequently asked questions. https://www.cdc.gov/coronavirus/2 019-ncov/vaccines/faq.html [facility] Access Instructions: Stay connected with your healthcare team and access your personal medical information anytime with the [facility]. If you would like a full copy of your medical records please contact the [facility] Medical Records Department Tuesday through Tuesday between 8a.m. and 4:30p.m. Please follow the directions below to access the portal: 1.Access the email account you provided upon registration to the [facility].2.Look for an invitation email from [facility].3.Open the email and access the invitation link: Accept Invitation to [facility]4.Fill in the required avalos to create your account. Sign into [email or web address] with your username and password that you created in the above steps to stay up to date. You can then view a summary of results, a summary of your visits, and the ability to download your summaries to your computer or send the information securely to a physician. Remember that your healthcare information is confidential, so carefully consider who you will allow to register on the [facility] Patient Portal for access to your information. You can also access the [facility] Patient Portal on the [employer]. Simply click on Health Records under Health Data and then click on the [employer] logo. HOW TO SAFELY DISPOSE OF PRESCRIPTION MEDICATIONS Please use one of the following methods to safely dispose of your unused medications. 1.Use a drug disposal kit: the drug disposal pouch allows you to safely discard your old and unused drugs. Ask your nurse to give you one when you are discharged.2.Visit a local take-back location: Many local pharmacies and police departments have programs that collect old and unwanted prescription drugs. Call your local pharmacy or go to http://[employer]atrix/7C3Hb9o to find one close to you.3.Make use of household items: Use cat litter or old coffee grounds to dispose medications if other options are not available. Mix your drugs with these household products, seal them in an airtight container and throw it into the garbage. Call [facility]: [phone] to be sure your drugs can be disposed of in this way. Some medicines may require a different approach.4.Never flush your medications down the toilet. IF YOU HAVE BEEN PRESCRIBED AN OPIOIDS FOR PAIN If you have been prescribed an opioid (such as hydrocodone, oxycodone or morphine), it is critical to understand the possible side effects and risks of opioid pain medications. Even when taken as directed, opioids can have several side effects including: Tolerance, meaning you might need to take more of a medication for the same pain relief. Nausea, vomiting and/or constipation. Sleepiness, dizziness, dry mouth, confusion, depression or itching. Physical dependence, meaning you have withdrawal symptoms when a medication is stopped ? this can develop within a few days. KNOW YOUR RESPONSIBILITIES It is important to know exactly how much and how often to take the opioid pain medications you are prescribed. Never take opioids in higher amounts or more often than prescribed. Do not combine opioids with alcohol or other drugs that cause drowsiness, such as benzodiazepines, also known as benzos, including diazepam and alprazolam, muscle relaxants or sleep aids. Never sell or share prescription opioids. This is illegal. Store opioids in a secure place and out of reach of others (including children, family, friends and visitors). The last page(s) of this document has been signed and retained as a CHART COPY Signatures Patient Education Materials Treating Wrist Fractures Ankle Sprain (Adult) Fall, Mechanical Medication Leaflets My discharge plan and instructions have been reviewed and explained to me and I,CATARINA BOYER understand my current condition and have read and understand these discharge instructions. I have received a written copy of the plan/instructions. If I have questions, I am aware that I should contact my doctor. Patient/Core Inserter Signature: Date/Time: Relationship to Patient: ____ Witness Name/Signature: Date/Time: [facility] 11-26-2023 Note ORIGINAL EXAMINATION: THREE XRAY VIEWS OF THE LEFT ANKLE 11/26/2023 5:34 pm COMPARISON: None. HISTORY: ORDERING SYSTEM PROVIDED HISTORY: Reason for Exam: fall FINDINGS: There is a small minimally displaced fracture of the anterosuperior aspect of the talus. Normal alignment of the ankle mortise. No focal osseous lesion. No evidence of significant joint effusion. There is overlying soft tissue edema. IMPRESSION: Small minimally displaced fracture of the anterosuperior aspect of the talus. Interpreted by: Elvis Hassan Preliminary Report By: Elvis Hassan Electronically signed By Elvis Hassan Dictated Date: 11/26/2023 5:56:54 PM Prelim Date: 11/26/2023 5:58:16 PM Sign Date: 11/26/2023 5:58:16 PM Ordering Provider: [facility] 11-26-2023 Note ORIGINAL EXAMINATION: THREE XRAY VIEWS OF THE RIGHT WRIST 11/26/2023 5:34 pm COMPARISON: None. HISTORY: ORDERING SYSTEM PROVIDED HISTORY: Reason for Exam: fall TECHNIQUE: AP, lateral, and oblique views. FINDINGS: There is mildly displaced fracture of the distal radial metaphysis with intra-articular extension. There is mild widening of the scapholunate joint space, possibly underlying ligamentous injury. There is mild soft tissue edema. Remainder of the joint spaces and articular surfaces are preserved and in gross anatomic alignment. IMPRESSION: There is mildly displaced fracture of the distal radial metaphysis with intra-articular extension. There is mild widening of the scapholunate joint space, possibly underlying ligamentous injury. Interpreted by: Antonio Jensen Preliminary Report By: Antonio Jensen Electronically signed By Antonio Jensen Dictated Date: 11/26/2023 5:58:06 PM Prelim Date: 11/26/2023 6:02:42 PM Sign Date: 11/26/2023 6:02:42 PM Ordering Provider: [facility] 11-16-2023 History of Present illness Narrative Catarina Boyer has been removed from the kidney transplant waiting list due to loss of contact with patient. Status was updated in [facility] and [place]. Letter to be sent. Transplant Coordinators performing verification of change: ALCIEDS Ye RN Cory Kapostasy, RN Stone Unloader documented in this encounter [facility] 09-29-2022 Note Discharge Summary Catarina Boyer : 1960 ADMIT DATE: 09/27/2022 DISCHARGE DATE: 09/29/2022 PRIMARY CARE PHYSICIAN: Camille Goodman MD VISIT STATUS: inpatient CODE STATUS: Full Code DISCHARGE DIAGNOSES: N/V/D resolved dehydration Hyperkalemia Hypomagnesemia Hypocalcemia CKD stage 4 FSGS HTN anemia Hypothyroid GERD Barretts esophagus Severe malnutrition HOSPITAL COURSE: 62 year old presented with N/V/D for about one week. She has had poor oral intake and weakness. She had profoundly low calcium and magnesium in the ED. She was admitted to the ICU and given IVF, IV magnesium and calcium. Electrolytes and vitals were closely monitored. She improved and was transferred to a medical floor. She was seen by Nephrology. She was able to tolerate a diet. She was placed on oral magnesium and bicarbonate. Potassium was elevated at 5.8. she was given lokelma and recheck was 4.5. she was otherwise stable, had no further issues and was discharged home. SIGNIFICANT DIAGNOSTIC STUDIES: CT abd/pelvis CONSULTANTS: CCM, Nephrology RECOMMENDED NEXT STEPS: Continue oral mag BID. Continue oral bicarbonate. Stop calcitriol. Should resume PPI. Recommend BMP in one week. Follow up with PCP and Nephrology as an outpatient. Physical Exam: Vitals: BP 134/67 (BP Location: Right arm, Patient Position: Lying) Pulse 66 Temp 36.1 ?C (97 ?F) (Temporal) Resp 16 Ht 5' 3 (1.6 m) Wt 229 lb 4.8 oz (104 kg) SpO2 95% BMI 40.62 kg/m? Pulse Ox: SpO2 Av.3 % Min: 92 % Max: 96 % General appearance: alert, cooperative and no distress Mental Status: oriented to person, place and time and normal affect Lungs: clear to auscultation bilaterally, normal effort Heart: regular rate and rhythm, no murmur Abdomen: soft, nontender, nondistended, bowel sounds present, no masses Extremities: no edema, redness, tenderness in the calves Skin: no gross lesions, rashes LABS: CBC: Recent Labs 09/27/22 0510 09/28/22 0428 09/29/22 0606 WBC 8.1 7.2 5.8 RBC 3.35* 3.32* 3.14* HGB 9.2* 9.2* 8.7* HCT 28.0* 27.9* 26.7* MCV 83.7 83.9 84.8 RDW 14.0 13.9 14.2 PLT 296 284 269 BMP: Recent Labs 09/27/22 1722 09/28/22 0428 09/29/22 0606 09/29/22 1204 NA 137 138 137 -- K 4.3 5.0 5.8* 4.5 CL 111* 113* 112* -- CO2 17* 18* 18* -- BUN 30* 28* 30* -- CREATININE 2.23* 2.37* 2.57* -- GLUCOSE 96 103* 117* -- CALCIUM 8.3* 8.9 9.3 -- ANIONGAP 9 7 7 -- LIVER PROFILE: Recent Labs 09/27/22 0119 AST 18 ALT 10 BILITOT 0.5 ALKPHOS 95 PROT 7.6 DISCHARGE MEDICATIONS: Medication List START taking these medications acetaminophen 325 MG tablet Commonly known as: Tylenol Take 2 tablets (650 mg) by mouth every 4 hours as needed for mild pain (1-3) for up to 10 days. magnesium oxide 400 (240 Mg) MG tablet Commonly known as: Mag-Ox Take 2 tablets (800 mg) by mouth 2 times daily. sodium bicarbonate 650 MG tablet Take 2 tablets (1,300 mg) by mouth 2 times daily. CONTINUE taking these medications amLODIPine 10 MG tablet Commonly known as: Norvasc GaviLAX 17 GM/SCOOP powder Generic drug: polyethylene glycol (PEG) 3350 TAKE 17 G BY MOUTH DAILY NEEDED (CONSTIPATION) levothyroxine 50 MCG tablet Commonly known as: Synthroid, Levoxyl ondansetron 4 MG tablet Commonly known as: Zofran TAKE 1 TABLET BY MOUTH DAILY NEEDED FOR NAUSEA OR VOMITING Where to Get Your Medications These medications were sent to [facility] [address] [place] [phone] Hours: Tuesday to Tuesday 10 am to 6 pm magnesium oxide 400 (240 Mg) MG tablet sodium bicarbonate 650 MG tablet Information about where to get these medications is not yet available Ask your nurse or doctor about these medications acetaminophen 325 MG tablet DIET: Adult diet Regular; Low Potassium (Less than 3000 mg/day) ACTIVITY: No heavy lifting. up with assist ____ COMPLEXITY OF FOLLOW UP: [] Moderate Complexity: follow up within 7-14 calendar days (71135) [] Severe Complexity: follow up within 7 calendar days (73154) FOLLOW UP TESTING, PENDING RESULTS OR REFERRALS AT TRANSITIONAL CARE VISIT: [] Yes [] No PENDING STUDIES: No DISPOSITION: Home FACILITY/HOME CARE AGENCY NAME: Follow up with Camille Goodman MD [address] [facility] [phone] Schedule an appointment as soon as possible for a visit in 1 week(s) Dania Falcon MD [address] [facility] [phone] Schedule an appointment as soon as possible for a visit in 2 week(s) INSTRUCTIONS TO MA/SW: Please call patient on day after discharge (must document patient contacted within 2 business days of discharge). FOLLOW UP QUESTIONS FOR MA/SW: 1. Did you get medications filled and taking them as instructed from discharge? 2. Are you (more content not included)... [facility] 09-29-2022 Hospital course Narrative Images from the original note were not included. Discharge Summary Catarina Boyer : 1960 ADMIT DATE: 09/27/2022 DISCHARGE DATE: 09/29/2022 PRIMARY CARE PHYSICIAN: Camille Goodman MD VISIT STATUS: inpatient CODE STATUS: Full Code DISCHARGE DIAGNOSES: N/V/D resolved dehydration Hyperkalemia Hypomagnesemia Hypocalcemia CKD stage 4 FSGS HTN anemia Hypothyroid GERD Barretts esophagus HOSPITAL COURSE: 62 year old presented with N/V/D for about one week. She has had poor oral intake and weakness. She had profoundly low calcium and magnesium in the ED. She was admitted to the ICU and given IVF, IV magnesium and calcium. Electrolytes and vitals were closely monitored. She improved and was transferred to a medical floor. She was seen by Nephrology. She was able to tolerate a diet. She was placed on oral magnesium and bicarbonate. Potassium was elevated at 5.8. she was given lokelma and recheck was 4.5. she was otherwise stable, had no further issues and was discharged home. SIGNIFICANT DIAGNOSTIC STUDIES: CT abd/pelvis CONSULTANTS: CCM, Nephrology RECOMMENDED NEXT STEPS: Continue oral mag BID. Continue oral bicarbonate. Stop calcitriol. Should resume PPI. Recommend BMP in one week. Follow up with PCP and Nephrology as an outpatient. Physical Exam: Vitals: BP 134/67 (BP Location: Right arm, Patient Position: Lying) Pulse 66 Temp 36.1 C (97 F) (Temporal) Resp 16 Ht 5' 3 (1.6 m) Wt 229 lb 4.8 oz (104 kg) SpO2 95% BMI 40.62 kg/m Pulse Ox: SpO2 Av.3 % Min: 92 % Max: 96 % General appearance: alert, cooperative and no distress Mental Status: oriented to person, place and time and normal affect Lungs: clear to auscultation bilaterally, normal effort Heart: regular rate and rhythm, no murmur Abdomen: soft, nontender, nondistended, bowel sounds present, no masses Extremities: no edema, redness, tenderness in the calves Skin: no gross lesions, rashes LABS: CBC: Recent Labs 09/27/22 0510 09/28/22 0428 09/29/22 0606 WBC 8.1 7.2 5.8 RBC 3.35* 3.32* 3.14* HGB 9.2* 9.2* 8.7* HCT 28.0* 27.9* 26.7* MCV 83.7 83.9 84.8 RDW 14.0 13.9 14.2 PLT 296 284 269 BMP: Recent Labs 09/27/22 1722 09/28/22 0428 09/29/22 0606 09/29/22 1204 NA 137 138 137 -- K 4.3 5.0 5.8* 4.5 CL 111* 113* 112* -- CO2 17* 18* 18* -- BUN 30* 28* 30* -- CREATININE 2.23* 2.37* 2.57* -- GLUCOSE 96 103* 117* -- CALCIUM 8.3* 8.9 9.3 -- ANIONGAP 9 7 7 -- LIVER PROFILE: Recent Labs 09/27/22 0119 AST 18 ALT 10 BILITOT 0.5 ALKPHOS 95 PROT 7.6 DISCHARGE MEDICATIONS: Medication List START taking these medications acetaminophen 325 MG tablet Commonly known as: Tylenol Take 2 tablets (650 mg) by mouth every 4 hours as needed for mild pain (1-3) for up to 10 days. magnesium oxide 400 (240 Mg) MG tablet Commonly known as: Mag-Ox Take 2 tablets (800 mg) by mouth 2 times daily. sodium bicarbonate 650 MG tablet Take 2 tablets (1,300 mg) by mouth 2 times daily. CONTINUE taking these medications amLODIPine 10 MG tablet Commonly known as: Norvasc GaviLAX 17 GM/SCOOP powder Generic drug: polyethylene glycol (PEG) 3350 TAKE 17 G BY MOUTH DAILY NEEDED (CONSTIPATION) levothyroxine 50 MCG tablet Commonly known as: Synthroid, Levoxyl ondansetron 4 MG tablet Commonly known as: Zofran TAKE 1 TABLET BY MOUTH DAILY NEEDED FOR NAUSEA OR VOMITING Where to Get Your Medications These medications were sent to [facility] [address] [place] [phone] Hours: Tuesday to Tuesday 10 am to 6 pm magnesium oxide 400 (240 Mg) MG tablet sodium bicarbonate 650 MG tablet Information about where to get these medications is not yet available Ask your nurse or doctor about these medications acetaminophen 325 MG tablet DIET: Adult diet Regular; Low Potassium (Less than 3000 mg/day) ACTIVITY: No heavy lifting. up with assist ____ COMPLEXITY OF FOLLOW UP: [] Moderate Complexity: follow up within 7-14 calendar days (75017) [] Severe Complexity: follow up within 7 calendar days (42016) FOLLOW UP TESTING, PENDING RESULTS OR REFERRALS AT TRANSITIONAL CARE VISIT: [] Yes [] No PENDING STUDIES: No DISPOSITION: Home FACILITY/HOME CARE AGENCY NAME: Follow up with Camille Goodman MD [address] [facility] [address] [facility] [phone] Schedule an appointment as soon as possible for a visit in 1 week(s) Dania Falcon MD [address] [facility] [address] [facility] [phone] Schedule an appointment as soon as possible for a visit in 2 week(s) INSTRUCTIONS TO MA/SW: Please call patient on day after discharge (must document patient contacted within 2 business days of discharge). FOLLOW UP QUESTIONS FOR MA/SW: 1. Did you get medications filled and taking them as instructed from discharge? 2. Are you following your discharge instructions from your hospital stay? 3. Please confirm patient is scheduled for a follow up appointment within the above time frame. DISCHARGE TIME: > 35 minutes SIGNED: NAT LOWERY MD 09/29/2022, 1:49 PM documented in this encounter [facility] 09-29-2022 Hospital Discharge instructions Jonna Lima RN - 09/29/2022 1:47 PM EDT As tolerated Nat Lowery MD - 09/29/2022 1:46 PM EDT Low potassium diet documented in this encounter [facility] 09-29-2022 Note Care Management Prog ress Note TRANSITIONAL CARE DAILY NOTE/UPDATES: Patient on 2E, transferred from ICU due to hypomagnesemia. Clinical updates: patient's magnesium today was 1.4. Phosporus high at 5.2, potassium high at 5.8. Nephrology following. Discharge plan: home when medically stable. Patient wants to go back to work, would not qualify for home care. Discharge obstacles: none noted. TCC to continue to follow. Discharge Milestones and Delays Expected Date/Time: 10/01/[address] discharge order Complete med reconciliation Case mgmt discharge readiness Clinical Stability Diagnsotic Workup Expected Discharge History Expected Date/Time Set By Reviewed At 10/01/2022 Juany Cohen RN 09/29/2022 7:39 AM TCC estimate 10/04/2022 SELENA Durbin 09/27/2022 10:06 AM 10/04/2022 KATH Mario CNP 09/27/2022 6:31 AM 10/04/2022 KATH Mario CNP 09/27/2022 3:19 AM Length of Stay (Days): 2 GMLOS: No GMLOS Documented [facility] 09-29-2022 Note Formatting of this n ote is different from the original. Images from the original note were not included. Care Management Progress Note TRANSITIONAL CARE DAILY NOTE/UPDATES: Patient on 2E, transferred from ICU due to hypomagnesemia. Clinical updates: patient's magnesium today was 1.4. Phosporus high at 5.2, potassium high at 5.8. Nephrology following. Discharge plan: home when medically stable. Patient wants to go back to work, would not qualify for home care. Discharge obstacles: none noted. TCC to continue to follow. Discharge Milestones and Delays Expected Date/Time: 10/01/[address] discharge order Complete med reconciliation Case mgmt discharge readiness Clinical Stability Diagnsotic Workup Expected Discharge History Expected Date/Time Set By Reviewed At 10/01/2022 Juany Cohen RN 09/29/2022 7:39 AM TCC estimate 10/04/2022 SELENA Durbin 09/27/2022 10:06 AM 10/04/2022 KATH Mario CNP 09/27/2022 6:31 AM 10/04/2022 KATH Mario CNP 09/27/2022 3:19 AM Length of Stay (Days): 2 GMLOS: No GMLOS Documented [facility] 09-29-2022 Note Formatting of this n ote is different from the original. Images from the original note were not included. Care Management Progress Note TRANSITIONAL CARE DAILY NOTE/UPDATES: Patient on 2E, transferred from ICU due to hypomagnesemia. Clinical updates: patient's magnesium today was 1.4. Phosporus high at 5.2, potassium high at 5.8. Nephrology following. Discharge plan: home when medically stable. Patient wants to go back to work, would not qualify for home care. Discharge obstacles: none noted. TCC to continue to follow. Discharge Milestones and Delays Expected Date/Time: 10/01/[address] discharge order Complete med reconciliation Case mgmt discharge readiness Clinical Stability Diagnsotic Workup Expected Discharge History Expected Date/Time Set By Reviewed At 10/01/2022 Juany Cohen RN 09/29/2022 7:39 AM TCC estimate 10/04/2022 SELENA Durbin 09/27/2022 10:06 AM 10/04/2022 KATH Mario CNP 09/27/2022 6:31 AM 10/04/2022 KATH Mario CNP 09/27/2022 3:19 AM Length of Stay (Days): 2 GMLOS: No GMLOS Documented [facility] 09-29-2022 Miscellaneous Notes Images from the original note were not included. Care Management Progress Note TRANSITIONAL CARE DAILY NOTE/UPDATES: Patient on 2E, transferred from ICU due to hypomagnesemia. Clinical updates: patient's magnesium today was 1.4. Phosporus high at 5.2, potassium high at 5.8. Nephrology following. Discharge plan: home when medically stable. Patient wants to go back to work, would not qualify for home care. Discharge obstacles: none noted. TCC to continue to follow. Discharge Milestones and Delays Expected Date/Time: 10/01/[address] discharge order Complete med reconciliation Case mgmt discharge readiness Clinical Stability Diagnsotic Workup Expected Discharge History Expected Date/Time Set By Reviewed At 10/01/2022 Juany Cohen RN 09/29/2022 7:39 AM TCC estimate 10/04/2022 SELENA Durbin 09/27/2022 10:06 AM 10/04/2022 KATH Mario CNP 09/27/2022 6:31 AM 10/04/2022 KATH Mario CNP 09/27/2022 3:19 AM Length of Stay (Days): 2 GMLOS: No GMLOS Documented Care Managment Initial Assessment Date: 09/27/2022 Patient Name: Catarina Boyer : 1960 Patient Information Source of Information: Patient Cognition/Language: WFL - Within Functional Limits Permission given to speak with patient public health representative/caregiver as indicated: Confirmation of Payer with patient/family: Yes Payer Name: [employer]: No Confirmation of Primary Care Physician: Confirmed PCP Name: Dr Camille Goodman Seen in last 2 years?: Yes Primary Caregiver: Self If assistance needed, confirmed caregiver ready, willing and able to care for patient at discharge: Yes Confirmed with: Donald Living Arrangements Current Residence: House (Ranch with basement) Number of Floors 1 (Does not use basement) Number of Entry Steps: 2 Bed/Bath Levels: Both first floor Facility: Facility Name: Plan to Return: Lives with: Spouse/significant other Support Systems: Spouse/significant other, Family members, Friends/neighbors Activities of Daily Living Ambulation: Independent Bathing/Dressing: Independent Elimination/Continence/Toileting: Independent Feeding: Independent Who Assists with Activities of Daily Living: Instrumental Activities of Daily Living Prescription Coverage: Yes [facility] Medication Management: Independent Transportation/Shopping: Independent Transportation Mode: Car Needs Assistance with Transportation at Discharge: No (Donald is able to transport home) Meal Preparation: Laundry/Cleaning: Independent Finances/Bill Paying: Independent Communication: Independent Types of Care Services/Equipment Utilized Care Services: Dialysis Type: Durable Medical Equipment: DME Provider: No DME Patient's Goal/Discharge Plan Patient expects to be discharged to: Home and back to work Discharge Planning Actions: No needs identified Patient's Choice Rights and [employer] and Collaborative Relationships Disclosed as Indicated for Post-Acute Care: Interdisciplinary Team Engagement: Social Work Referral for: Additional Information: Introduced self and role. Patient admitted for hypomagnesia. Patient was independent and working prior to admission. Patient has insurance and prescription coverage, uses the [facility] in [place] for pharmacy. Plan to DC home and back to work. No needs identified. Patient verbalizes understanding and is in agreement with POC. Peggy Smyth RN Follow up from overnight admission: clinically improved No neuromuscular, weaver dobby loom or cardiac abnormalities. Electrolytes replaced. Ivf discontinue in setting of nagma, renal function stable. Held PO Magnesium as likely exacerbating diarrhea. Advanced diet, electrolytes q12. If stable and tolerating, can de-escalate to GMF in next 12-24 hrs documented in this encounter [facility] 09-29-2022 Consult note Associated Order (s): IP CONSULT TO NEPHROLOGY [facility] Consult Note Patient : Catarina Boyer; 62 y.o. [id number] Reason for Consult: Asked by Dr Nat Lowery MD to see for CKD 4. History of Present Illness: Catarina Boyer; 62 y.o. female with past medical history as mentioned below. Well known to Dr Moreno. History of FSGS biopsy proven. Baseline cr around 2.2 to 2.4. admitted with severe hypomagnesemia. Received IV mg and feels better. Had severe nausea and vomitings one week prior along with diarrhea. No edema. Past History/Allergies?Social History: Past Medical History: Diagnosis Date CKD (chronic kidney disease) stage 4, GFR 15-29 ml/min ([facility]) Follows with Dr. Moreno Focal segmental glomerulosclerosis GERD (gastroesophageal reflux disease) Hyperlipidemia Hypertension Hypomagnesemia Hypothyroidism Allergies Allergen Reactions Codeine Cough, Hives and Nausea And Vomiting Moxifloxacin Nausea And Vomiting and Hives Penicillins Hives and Nausea Only Hydromorphone Nausea And Vomiting Morphine Nausea And Vomiting and Hives Oxycodone-Acetaminophen Nausea And Vomiting and Hives Social History Socioeconomic History Marital status: Spouse name: Not on file Number of children: Not on file Years of education: Not on file Highest education level: Not on file Occupational History Not on file Tobacco Use Smoking status: Every Day Packs/day: 0.50 Years: 40.00 Pack years: 20.00 Types: Cigarettes Smokeless tobacco: Never Vaping Use Vaping Use: Never used Substance and Sexual Activity Alcohol use: No Drug use: Never Sexual activity: Not on file Other Topics Concern Not on file Social History Narrative Not on file Social Determinants of Health Financial Resource Strain: Not on file Food Insecurity: Not on file Transportation Needs: Not on file Physical Activity: Not on file Stress: Not on file Social Connections: Not on file Intimate Partner Violence: Not on file Housing Stability: Not on file Family History: Family History Problem Relation Name Age of Onset Heart disease Mother Diabetes Father Outpatient Medications: Medications Prior to Admission Medication Sig Dispense Refill Last Dose amLODIPine (Norvasc) 10 MG tablet Take 10 mg by mouth Every 24 hours. levothyroxine (Synthroid, Levoxyl) 50 MCG tablet Take 50 mcg by mouth Every 24 hours. ondansetron (Zofran) 4 MG tablet TAKE 1 TABLET BY MOUTH DAILY NEEDED FOR NAUSEA OR VOMITING 10 tablet 0 polyethylene glycol, PEG, 3350 (Glycolax) 17 GM/SCOOP powder TAKE 17 G BY MOUTH DAILY NEEDED (CONSTIPATION) 1530 g 0 Review of Systems: ROS was otherwise negative except as mentioned in the HABEMATOLEL. Vital Signs: Vitals: 09/29/22 0800 BP: (!) 140/71 Pulse: 74 Resp: 16 Temp: 36.8 C (98.2 F) SpO2: 92% Wt Readings from Last 2 Encounters: 09/29/22 104 kg (229 lb 4.8 oz) 12/24/21 103 kg (228 lb) 24HR INTAKE/OUTPUT: Intake/Output Summary (Last 24 hours) at 09/29/2022 1036 Last data filed at 09/28/2022 1250 Gross per 24 hour Intake -- Output 400 ml Net -400 ml Physical Examination: General: AAO x 3, speaking in full sentences, no accessory muscle use. HEENT: Atraumatic, normocephalic, no throat congestion, moist mucosa. Eyes: Pupils equal, round and reactive to light, EOMI. Neck: No JVD, no thyromegaly, no lymphadenopathy. Chest: Bilateral vesicular breath sounds, no rales or wheezes. Cardiac: S1 S2 RR, no murmurs, gallops or rubs, JVP not raised. Abdomen: Soft, non-tender, no masses or organomegaly, BS audible. : No suprapubic or flank tenderness. Neuro: AAO x 3, No FND. SKIN: No rashes, good skin turgor. Extremities: No edema, palpable peripheral pulses, no calf tenderness. Labs: Last 3 CBC: Recent Labs 09/27/22 0510 09/28/2242709/29/22605 WBC 8.1 7.2 5.8 RBC 3.35* 3.32* 3.14* HGB 9.2* 9.2* 8.7* HCT 28.0* 27.9* 26.7* MCV 83.7 83.9 84.8 MCH 27.5 27.6 27.6 MCHC 32.8 32.9 32.5 RDW 14.0 13.9 14.2 PLT 296 284 269 MPV 9.1 9.4 9.2 Last 3 CMP: Recent Labs 09/27/22 0119 09/27/22 0714 09/27/22172109/28/2242709/29/22 06 NA 138 < > 137 138 137 K 4.3 < > 4.3 5.0 5.8* CL 110* < > 111* 113* 112* CO2 17* < > 17* 18* 18* BUN 27* < > 30* 28* 30* CREATININE 2.53* < > 2.23* 2.37* 2.57* CALCIUM 7.2* < > 8.3* 8.9 9.3 PROT 7.6 -- -- -- -- BILITOT 0.5 -- -- -- -- ALKPHOS 95 -- -- -- -- AST 18 -- -- -- -- ALT 10 -- -- -- -- < > = values in this interval not displayed. Phosphorus: Recent Labs 09/27/22172109/28/2242709/29/22 06 PHOS 5.4* 5.4* 5.2* Magnesium: Recent Labs 09/27/22172109/28/2209/29/23 0606 MG 1.7 1.7 1.4* Albumin: No lab exists for component: LABALBU BNP: No results found for: BNP GALINA: No results found for: GALINA SPEP: Lab Results Component Value Date PROT 7.6 09/27/2022 UPEP: No components found for: LABPE C3: No results found for: C3 C4: No results found for: C4 MPO ANCA: No components found for: MPO PR3 ANCA: No components found for: PR3 Anti-GBM: No components found for: GBMABIGG Hep BsAg: Lab Results Component Value Date HEPBSAG Not Detected 09/27/2022 Hep C AB: Lab Results Component Value Date HEPCAB Not Detected 09/27/2022 Urinalysis/Chemistries: No results found for: COLORU, PHUR, TRICHOMONAS, YEAST, BACTERIA, CLARITYU, SPECGRAV, LEUKOCYTESUR, UROBILINOGEN, BILIRUBINUR, BLOODU, GLUCOSEU, AMORPHOUS Urine Sodium: No components found for: KAITLYNN Urine Potassium: No results found for: KUR Urine Chloride: No results found for: CLUR Urine Osmolarity: No results found for: OSMOU Urine Protein: No components found for: TPU Urine Creatinine: No results found for: LABCREA UPC: Urine Eosinophils: No components found for: UEOS Radiology: Assessment/Plan: CKD 4. Due to FSGS. Stable Hypomagnesemia. Presumably due to PPI related loss. Unfortunately she has barretts esophagus and that precludes stopping PPIs. She was not able to take anything PO for a week before, hence could not take mg pills. Now GI symptoms are better. Add back oral mg. Mg levels better Hypocalcemia. Mediated by low mg. Better Hyperkalemia. ? Acidosis related. Received veltassa. Will add oral bicarbonate Asking about going home. Can repeat BMP today afternoon and can dc if K is better At the time of dc Continue oral mg Continue oral bicarbonate as ordered Dc calcitriol which was recently started as outpatient Will arrange follow up with Dr Moreno in office. [employer] Phone: 09-29-2022 Consult note Associated Order (s): IP CONSULT TO NEPHROLOGY [facility] Consult Note Patient : Catarina Boyer; 62 y.o. [id number] Reason for Consult: Asked by Dr Nat Lowery MD to see for CKD 4. History of Present Illness: Catarina Boyer; 62 y.o. female with past medical history as mentioned below. Well known to Dr Moreno. History of FSGS biopsy proven. Baseline cr around 2.2 to 2.4. admitted with severe hypomagnesemia. Received IV mg and feels better. Had severe nausea and vomitings one week prior along with diarrhea. No edema. Past History/Allergies?Social History: Past Medical History: Diagnosis Date CKD (chronic kidney disease) stage 4, GFR 15-29 ml/min ([facility]) Follows with Dr. Moreno Focal segmental glomerulosclerosis GERD (gastroesophageal reflux disease) Hyperlipidemia Hypertension Hypomagnesemia Hypothyroidism Allergies Allergen Reactions Codeine Cough, Hives and Nausea And Vomiting Moxifloxacin Nausea And Vomiting and Hives Penicillins Hives and Nausea Only Hydromorphone Nausea And Vomiting Morphine Nausea And Vomiting and Hives Oxycodone-Acetaminophen Nausea And Vomiting and Hives Social History Socioeconomic History Marital status: Spouse name: Not on file Number of children: Not on file Years of education: Not on file Highest education level: Not on file Occupational History Not on file Tobacco Use Smoking status: Every Day Packs/day: 0.50 Years: 40.00 Pack years: 20.00 Types: Cigarettes Smokeless tobacco: Never Vaping Use Vaping Use: Never used Substance and Sexual Activity Alcohol use: No Drug use: Never Sexual activity: Not on file Other Topics Concern Not on file Social History Narrative Not on file Social Determinants of Health Financial Resource Strain: Not on file Food Insecurity: Not on file Transportation Needs: Not on file Physical Activity: Not on file Stress: Not on file Social Connections: Not on file Intimate Partner Violence: Not on file Housing Stability: Not on file Family History: Family History Problem Relation Name Age of Onset Heart disease Mother Diabetes Father Outpatient Medications: Medications Prior to Admission Medication Sig Dispense Refill Last Dose amLODIPine (Norvasc) 10 MG tablet Take 10 mg by mouth Every 24 hours. levothyroxine (Synthroid, Levoxyl) 50 MCG tablet Take 50 mcg by mouth Every 24 hours. ondansetron (Zofran) 4 MG tablet TAKE 1 TABLET BY MOUTH DAILY NEEDED FOR NAUSEA OR VOMITING 10 tablet 0 polyethylene glycol, PEG, 3350 (Glycolax) 17 GM/SCOOP powder TAKE 17 G BY MOUTH DAILY NEEDED (CONSTIPATION) 1530 g 0 Review of Systems: ROS was otherwise negative except as mentioned in the HABEMATOLEL. Vital Signs: Vitals: 09/29/22 0800 BP: (!) 140/71 Pulse: 74 Resp: 16 Temp: 36.8 C (98.2 F) SpO2: 92% Wt Readings from Last 2 Encounters: 09/29/22 104 kg (229 lb 4.8 oz) 12/24/21 103 kg (228 lb) 24HR INTAKE/OUTPUT: Intake/Output Summary (Last 24 hours) at 09/29/2022 1036 Last data filed at 09/28/2022 1250 Gross per 24 hour Intake -- Output 400 ml Net -400 ml Physical Examination: General: AAO x 3, speaking in full sentences, no accessory muscle use. HEENT: Atraumatic, normocephalic, no throat congestion, moist mucosa. Eyes: Pupils equal, round and reactive to light, EOMI. Neck: No JVD, no thyromegaly, no lymphadenopathy. Chest: Bilateral vesicular breath sounds, no rales or wheezes. Cardiac: S1 S2 RR, no murmurs, gallops or rubs, JVP not raised. Abdomen: Soft, non-tender, no masses or organomegaly, BS audible. : No suprapubic or flank tenderness. Neuro: AAO x 3, No FND. SKIN: No rashes, good skin turgor. Extremities: No edema, palpable peripheral pulses, no calf tenderness. Labs: Last 3 CBC: Recent Labs 09/27/22 0510 09/28/22 0428 09/29/22 0606 WBC 8.1 7.2 5.8 RBC 3.35* 3.32* 3.14* HGB 9.2* 9.2* 8.7* HCT 28.0* 27.9* 26.7* MCV 83.7 83.9 84.8 MCH 27.5 27.6 27.6 MCHC 32.8 32.9 32.5 RDW 14.0 13.9 14.2 PLT 296 284 269 MPV 9.1 9.4 9.2 Last 3 CMP: Recent Labs 09/27/22 0119 09/27/22 0714 09/27/22 1722 09/28/22 0428 09/29/22 0606 NA 138 < > 137 138 137 K 4.3 < > 4.3 5.0 5.8* CL 110* < > 111* 113* 112* CO2 17* < > 17* 18* 18* BUN 27* < > 30* 28* 30* CREATININE 2.53* < > 2.23* 2.37* 2.57* CALCIUM 7.2* < > 8.3* 8.9 9.3 PROT 7.6 -- -- -- -- BILITOT 0.5 -- -- -- -- ALKPHOS 95 -- -- -- -- AST 18 -- -- -- -- ALT 10 -- -- -- -- < > = values in this interval not displayed. Phosphorus: Recent Labs 09/27/22 17209/28/22 0428 09/29/22 0606 PHOS 5.4* 5.4* 5.2* Magnesium: Recent Labs 09/27/22 17209/28/22 0428 09/29/22 0606 MG 1.7 1.7 1.4* Albumin: No lab exists for component: LABALBU BNP: No results found for: BNP GALINA: No results found for: GALINA SPEP: Lab Results Component Value Date PROT 7.6 09/27/2022 UPEP: No components found for: LABPE C3: No results found for: C3 C4: No results found for: C4 MPO ANCA: No components found for: MPO PR3 ANCA: No components found for: PR3 Anti-GBM: No components found for: GBMABIGG Hep BsAg: Lab Results Component Value Date HEPBSAG Not Detected 09/27/2022 Hep C AB: Lab Results Component Value Date HEPCAB Not Detected 09/27/2022 Urinalysis/Chemistries: No results found for: COLORU, PHUR, TRICHOMONAS, YEAST, BACTERIA, CLARITYU, SPECGRAV, LEUKOCYTESUR, UROBILINOGEN, BILIRUBINUR, BLOODU, GLUCOSEU, AMORPHOUS Urine Sodium: No components found for: KAITLYNN Urine Potassium: No results found for: KUR Urine Chloride: No results found for: CLUR Urine Osmolarity: No results found for: OSMOU Urine Protein: No components found for: TPU Urine Creatinine: No results found for: LABCREA UPC: Urine Eosinophils: No components found for: UEOS Radiology: Assessment/Plan: CKD 4. Due to FSGS. Stable Hypomagnesemia. Presumably due to PPI related loss. Unfortunately she has barretts esophagus and that precludes stopping PPIs. She was not able to take anything PO for a week before, hence could not take mg pills. Now GI symptoms are better. Add back oral mg. Mg levels better Hypocalcemia. Mediated by low mg. Better Hyperkalemia. ? Acidosis related. Received veltassa. Will add oral bicarbonate Asking about going home. Can repeat BMP today afternoon and can dc if K is better At the time of dc Continue oral mg Continue oral bicarbonate as ordered Dc calcitriol which was recently started as outpatient Will arrange follow up with Dr Moreno in office. Associated Order(s): IP CONSULT TO DIETITIAN Type and Reason for Visit: Reassess (pt now with worsening renal labs- k 5.8). consult for ONS- Nutrition Recommendations/Plan: per MNT protocol ,will place on low potassium diet and modify Oral nutrition supplements to low K+ ( discontinued Ensure high protein ) . Ensure clear - apple was increased to bid( Ensure Clear provides 240 kcals, 8 g protein per serving.) MONITOR NEED FOR LOW POTASSIUM DIET EDUCATION PRIOR TO DISCHARGE . Please document PO intakes consistently in the flowsheet to better assess intake adequacy. Suggest bowel regimen if Kayexalate, Lokelma not used. Please document PO intakes -diet and ons-consistently in the flowsheet to better assess intake adequacy. Monitor labs, status, intakes,wts to reassess. Follow up at least weekly Malnutrition Assessment: Malnutrition Status: Severe malnutrition Context: Acute Illness Findings of the 6 clinical characteristics of malnutrition: Energy Intake: 50% or less of estimated energy requirements for 5 or more days Weight Loss: (lost 7.7 % in 2 mos but most in last 10 days per pt) Body Fat Loss: Mild body fat loss Orbital Muscle Mass Loss: Moderate muscle mass loss Temples (temporalis), Hand (interosseous) Fluid Accumulation: No significant fluid accumulation Superintendent Strength: Measurable reduction in senior controls analyst strength Associated Order(s): IP CONSULT TO DIETITIAN Type and Reason for Visit: Initial, Positive Nutrition Screen, Consult (poor po prior to adm) Nutrition Recommendations/Plan: Suggest to continue a regular diet as tolerated to promote intake- patient states no appetite . Reluctant to try oral nutrition supplements - did agree to apple Ensure clear(Ensure Clear provides 240 kcals, 8 g protein per serving) and Ensure high protein bid( 160 palmira, 16 gm pro/serving). Wants to try cheeseburger for lunch. Can select her own meals, Please document PO intakes-diet and ONS consistently in the flowsheet to better assess intake adequacy. May benefit from mvi Monitor labs, status, intakes,wts to reassess. Follow up at least weekly Malnutrition Assessment: Malnutrition Status: Severe malnutrition Context: Acute Illness Findings of the 6 clinical characteristics of malnutrition: Energy Intake: 50% or less of estimated energy requirements for 5 or more days Weight Loss: (lost 7.7 % in 2 mos but most in last 10 days per pt) Body Fat Loss: Mild body fat loss Orbital Muscle Mass Loss: Moderate muscle mass loss Temples (temporalis), Hand (interosseous) Fluid Accumulation: No significant fluid accumulation Superintendent Strength: Measurable reduction in senior controls analyst strength documented in this encounter [facility] 09-29-2022 Consult note Associated Order (s): IP CONSULT TO DIETITIAN Type and Reason for Visit: Reassess (pt now with worsening renal labs- k 5.8). consult for ONS- Nutrition Recommendations/Plan: per MNT protocol ,will place on low potassium diet and modify Oral nutrition supplements to low K+ ( discontinued Ensure high protein ) . Ensure clear - apple was increased to bid( Ensure Clear provides 240 kcals, 8 g protein per serving.) MONITOR NEED FOR LOW POTASSIUM DIET EDUCATION PRIOR TO DISCHARGE . Please document PO intakes consistently in the flowsheet to better assess intake adequacy. Suggest bowel regimen if Kayexalate, Lokelma not used. Please document PO intakes -diet and ons-consistently in the flowsheet to better assess intake adequacy. Monitor labs, status, intakes,wts to reassess. Follow up at least weekly Malnutrition Assessment: Malnutrition Status: Severe malnutrition Context: Acute Illness Findings of the 6 clinical characteristics of malnutrition: Energy Intake: 50% or less of estimated energy requirements for 5 or more days Weight Loss: (lost 7.7 % in 2 mos but most in last 10 days per pt) Body Fat Loss: Mild body fat loss Orbital Muscle Mass Loss: Moderate muscle mass loss Temples (temporalis), Hand (interosseous) Fluid Accumulation: No significant fluid accumulation Superintendent Strength: Measurable reduction in senior controls analyst strength [facility] 09-29-2022 History of Present illness Narrative Nutrition Assessment Type and Reason for Visit: Reassess (pt now with worsening renal labs- k 5.8) Nutrition Recommendations/Plan: per MNT protocol ,will place on low potassium diet and modify Oral nutrition supplements to low K+ ( discontinued Ensure high protein ) . Ensure clear - apple was increased to bid( Ensure Clear provides 240 kcals, 8 g protein per serving.) MONITOR NEED FOR LOW POTASSIUM DIET EDUCATION PRIOR TO DISCHARGE . Please document PO intakes consistently in the flowsheet to better assess intake adequacy. Suggest bowel regimen if Kayexalate, Lokelma not used. Please document PO intakes -diet and ons-consistently in the flowsheet to better assess intake adequacy. Monitor labs, status, intakes,wts to reassess. Follow up at least weekly Malnutrition Assessment: Malnutrition Status: Severe malnutrition Context: Acute Illness Findings of the 6 clinical characteristics of malnutrition: Energy Intake: 50% or less of estimated energy requirements for 5 or more days Weight Loss: (lost 7.7 % in 2 mos but most in last 10 days per pt) Body Fat Loss: Mild body fat loss Orbital Muscle Mass Loss: Moderate muscle mass loss Temples (temporalis), Hand (interosseous) Fluid Accumulation: No significant fluid accumulation Superintendent Strength: Measurable reduction in senior controls analyst strength Nutrition Assessment: PER MD-Internal Medicine: MICU CHIEF COMPLAINT Catarina Boyer is a 62 y.o. female presents with chief complaint of Weakness, Gen Diarrhea with NON ANION GAP METABOLIC ACIDOSIS and severe electrolyte abnormalities with severe hypomagenesemia and hypocalcemia initially presented on 09/27/2022, in ICU for 1d 2h.PER MD-Significant Interventions Stable overnight, tolerating diet. Ok for de-escalation to GMF Assessment/Plan Severe electrolyte disturbance, severe hypomagnesemia and hypocalcemia, resolved,iv replacement, hold po magox as causing diarrhea. Discontinue ppi as exacerbates. Nephro follow up, may need prn infusion of mag if not able to tolerate po replacement. Acute Diarrhea illness, pcr negative, supportive care, complicated by NON ANION GAP METABOLIC ACIDOSIS and severe electrolyte disturbances. Discussed precautions and prompt evaluation if recurrrence as severe hypomag recurrence can cause elevated morbidity. pt verbalized understanding and agreement Severe hypomagnesemia without cardiac or neuro disturbances Hypothyroidism - resume home synthroid 50 mcg.Chronic gerd , uncontrolled, GI follow up advised with possible endoscopy . Prior EGD and colonoscopy on 10/27/2021. She had a tubular adenoma removed from her cecum. Gastric and GE junction biopsies were negative for H. pylori. 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 Gastric emptying study 11/27 was normal. Mesenteric artery duplex scan 12/14 was unremarkable. Plan : electrolyte correction , hold ppi as may exacerbate , po magox. Nephro follow up. May req OP IV replacement if intolerant to po replacement. Estimated Daily Nutrient Needs: Energy Requirements Based On: Kcal/kg Weight Used for Energy Requirements: [place] Weight for Energy Calculation (kg): 52 kg Total Energy Requirements (kcals/day): 28-32 or [id number] Weight Used for Protein Requirements: [place] Weight in Kg Used for Protein Requirements: 52 kg Estimated Total Protein (g/day): .8-1 or 42-52 Estimated Daily Total Fluid (ml/day): or per md Nutrition Related Findings: pt complaining of headache today- had nausea last night, K 5.8 ,cl 112, bun 30,, gfr 20.8,phos 5.2, hgb 8.7 non pitting ble, / bm Wound Type: None Current Nutrition Therapies: Adult diet Regular; Low Potassium (Less than 3000 mg/day) Current Oral Intake Average Meal Intake: 26-50%, 51-75% Average Supplements Intake: 76-100% (will discontinue Ensure hi protein) Anthropometric Measures: Height: 160 cm (5' 3) Current Body Weight: 104 kg (229 lb 4.8 oz) Weight Source: Standing Scale (09/28) Usual Body Weight: 106 kg (233 lb) % Weight Change (Calculated): -1.6 [place] Body Weight (lbs) (Calculated): 115 lbs [place] Body Weight (Kg) (Calculated): 52 kg % [place] Body Weight (Calculated): 199.4 % BMI (kg/m2) (Calculated): 40.6 BMI Categories: Obese Class 3 (BMI 40.0 or greater) Nutrition Diagnosis: Severe malnutrition, Inadequate protein-energy intake related to inadequate protein-energy intake, early satiety as evidenced by poor intake prior to admission, intake 0-25%, nausea, vomiting, diarrhea, reduced senior controls analyst strength, moderate muscle loss, weight loss (7.7 in 2 mos documented - low po 10 days) Altered nutrition-related lab values related to renal dysfunction as evidenced by lab values (K 5.8) Nutrition Interventions: Nutrition Education/Counseling: No recommendation at this time (monitor need for education) Coordination of Nutrition Care: Continue to monitor while inpatient, Feeding Assistance/Environment Change Plan of Care discussed with: pt, Goals: Previous Goal Met: Progressing toward Goal(s) (now K elevated) Goals: Meet at least 75% of estimated needs Specify Other Goals: witfh diet and ons- labs ( kumar renal) trend toward baseline Nutrition Monitoring and Evaluation: Behavioral-Environmental Outcomes: None Identified Food/Nutrient Intake Outcomes: Food and Nutrient Intake, Supplement Intake Physical Signs/Symptoms Outcomes: Biochemical Data, Chewing or Swallowing, Constipation, GI Status, Nausea or Vomiting, Fluid Status or Edema, Hemodynamic Status, Meal Time Behavior, Nutrition Focused Physical Findings, Skin, Weight Discharge Planning: Continue current diet, Continue Oral Nutrition Supplement Allison Roca RD Contact: *[phone] or secure chat Patient in room, Alert and oriented, no SOB, and able to answer all questions. No needs at this time. Physical Therapy Facility/Department: [facility] ICU Physical Therapy Initial Evaluation NAME: Catarina Boyer : 1960 Date of Service: 09/28/2022 Discharge Recommendations: Home with assist PRN ([facility] PT pending patients wishes/needs at discharge) PT Equipment Recommendations Equipment Needed: No Assessment Requires PT Follow-Up: Yes Assessment: Pt presents with decreased functional mobility, decreased strength, decreased safety awareness, decreased endurance and impaired balance. Pt has decreased standing balance requiring 1 person for safety at this time placing her at an increased risk of falling. Pt could benefit from continued PT in order to address her decreased functional mobility, strength, balance and safety. Performance Deficits/Impairments: Decreased functional mobility , Decreased strength, Decreased safe awareness, Decreased endurance, Decreased balance Decision Making: Medium Complexity History: Pt admitted with n/v/d and weakness, found to have electrolyte abnormalities. Exam: AM-PAC Clinical Presentation: Pt admitted with n/v/d and weakness, found to have electrolyte abnormalities. Pt has medical history as indicated below that contributes to her clinical presentation. At baseline patient is functionally independent with no device. Currently patient is SBA with no device and is anticipated to progress with acute therapies and medical management in order to return home with assist and [facility] PT. Activity Tolerance Activity Tolerance: Patient limited by fatigue, Patient limited by endurance Patient Diagnosis(es): The primary encounter diagnosis was Hypomagnesemia. Diagnoses of Diarrhea, unspecified type and Weakness were also pertinent to this visit. has a past medical history of CKD (chronic kidney disease) stage 4, GFR 15-29 ml/min (HCC), Focal segmental glomerulosclerosis, GERD (gastroesophageal reflux disease), Hyperlipidemia, Hypertension, Hypomagnesemia, and Hypothyroidism. has a past surgical history that includes Laparoscopy diagnostic / biopsy / aspiration / lysis (01/20/2022); Cholecystectomy (01/20/2022); Knee cartilage surgery (Right); and Hysterectomy. Restrictions Restrictions/Precautions Restrictions/Precautions: General Precautions, Fall Risk Required Braces or Orthoses?: No Vision/Hearing Vision: Within Functional Limits Vision Exceptions: Wears glasses for reading Hearing: Functional/adequate for paticipation in therapy Cognition/Orientation Overall Cognitive Status: WFL Overall Orientation Status: Within Functional Limits Subjective General Chart Reviewed: Yes Patient Assessed for Rehabilitation Services: Yes Family / Caregiver Present: (spouse left during session) General Comment Comments: Per RN patient okay for therapy. Co-eval with OT. Subjective Subjective: Pt pleasant and agreeable to therapy. Patient Stated Goal: Patient states she wants to get home. Pain Assessment Pain Assessment: No/denies pain Social/Functional History Social/Functional History Lives With: Spouse Type of Home: House Home Layout: One level Home Access: Stairs to enter with rails Entrance Stairs - Number of Steps: 2 Bathroom Shower/Tub: Tub/Shower unit Bathroom Toilet: Handicap height Receives Help From: Family ADL Assistance: Independent Homemaking Assistance: Independent Homemaking Responsibilities: Yes Ambulation Assistance: Independent With device?: No Transfer Assistance: Independent Active Foreign Law Consultant: Yes Mode of Transportation: Truck Objective Observation/Palpation Posture: Good Observation: ICU tele, continuous O2 monitoring (SpO2 92-93% on RA) and PIV intact Gross Assessment: Yes AROM: Within functional limits PROM: Within functional limits Strength: Generally decreased, functional Coordination: Within functional limits Tone: Normal Sensation: Intact Bed mobility Supine to Sit: Supervision Sit to Supine: Unable to assess (in chair post-session) Scooting: Supervision Comment: Denies dizziness with positional changes. Supervision for line management. Transfers Sit to Stand: Stand by assistance (to no device from EOB and recliner) Stand to sit: Stand by assistance Comment: Denies dizziness on initial stance. No true LOB or instability. SBA for safety due to weakness and line management. Ambulation Ambulation: Yes Ambulation 1 Surface 1: Level tile Device 1: No device Assistance 1: Standby assistance Quality of Gait Comment 1: Pt demonstrates reciprocal stepping pattern with B foot clearance, no true LOB or instability, occasional path deviations and postural sway, slow richardson Distance (ft) 1: 5 ft x 1, 150 ft x 2 Comments 1: Pt demonstrates stable gait with no device, limited by fatigue. SpO2 WFL throughout on room air. Balance Posture: Good Sitting - Static: Good Sitting - Dynamic: Fair, + Standing - Static: Good Standing - Dynamic: Fair, + Plan # of visits: 5 visits Current Treatment Recommendations: Strengthening, Balance Training, Functional Mobility Training, Endurance Training, Gait Training, Stair training, Neuromuscular Re-education, Home Exercise Program, Safety Education & Training, Patient/Caregiver Education & Training, Equipment Evaluation, Education, & procurement, Positioning Plan Comment: Goals and/or treatment plan were established in collaboration with patient. Safety Safety Devices Safety Devices in Place: Yes Type of Devices: All fall risk precautions in place, Call light within reach, Gait belt, Patient at risk for falls, Nurse notified, Left in chair AM-PAC Score AM-PAC Inpatient Mobility Raw Score (No Stairs) : 15 Goals Encounter Problems Encounter Problems (Active) Balance Patient will maintain dynamic standing balance for 5 minutes with modified independence in order to demonstrate decreased risk of falling. Start: 09/28/22 Expected End: 10/05/22 Exercise Patient will complete lower extremity exercises for 1-2 sets / 10 reps in order to improve strength and activity tolerance for mobility. Start: 09/28/22 Expected End: 10/05/22 Mobility Patient will ambulate 200 feet with independence and no assistive device in order to improve safety and independence with mobility. Start: 09/28/22 Expected End: 10/05/22 Patient will ascend and descend 2 stairs with one hand hold and one railing and modified independence in order to safely negotiate home. Start: 09/28/22 Expected End: 10/05/22 Transfers Patient will perform bed mobility with modified independence in order to improve independence and prepare for out of bed mobility. Start: 09/28/22 Expected End: 10/05/22 Patient will complete functional transfers with no assistive device with modified independence in order to prepare for ambulation. Start: 09/28/22 Expected End: 10/05/22 Education Education Given To: Patient Education Provided: Goals, PT Role, Plan of Care, Discharge recommendations, Transfer Training, General Safety, Gait Training, Functional Mobility Training, Injury Prevention Education Method: Demonstration, Verbal Barriers to Learning: None Education Outcome: Verbalized understanding, Demonstrated understanding, Continued education needed Therapy Time Individual Co-treatment Time In 1048 Time Out 1105 Minutes 17 Elena Dubose PT Occupational Therapy Facility/Department: ICU Occupational Therapy Initial Evaluation NAME: Catarina Boyer : 1960 Date of Service: 09/28/2022 Discharge Recommendations: Home with Home health OT, Home with assist PRN Assessment REQUIRES OT FOLLOW-UP: Yes Performance deficits / Impairments: Decreased functional mobility , Decreased ADL status, Decreased endurance, Decreased balance, Decreased high-level IADLs, Decreased safe awareness Assessment: Prior to admission, pt was independent in ADLs, functional transfers and mobility with no device. Pt now requires SBA for LB ADLs, STS and mobility with no device. Pt is limited by impaired balance and endurance. Pt should benefit from skilled OT services in order to increase safety and independence in occupational participation. Prognosis: Good Decision Making: Medium Complexity History: Pt admitted with n/v/d and weakness, found to have electrolyte abnormalities. PMH is listed above. Exam: [facility] Assistance / Modification: SBA Activity Tolerance Activity Tolerance: Patient limited by fatigue Patient Diagnosis(es): The primary encounter diagnosis was Hypomagnesemia. Diagnoses of Diarrhea, unspecified type and Weakness were also pertinent to this visit. has a past medical history of CKD (chronic kidney disease) stage 4, GFR 15-29 ml/min (HCC), Focal segmental glomerulosclerosis, GERD (gastroesophageal reflux disease), Hyperlipidemia, Hypertension, Hypomagnesemia, and Hypothyroidism. has a past surgical history that includes Laparoscopy diagnostic / biopsy / aspiration / lysis (01/20/2022); Cholecystectomy (01/20/2022); Knee cartilage surgery (Right); and Hysterectomy. Restrictions Restrictions/Precautions Restrictions/Precautions: General Precautions, Fall Risk Required Braces or Orthoses?: No Vision/Hearing Vision: Within Functional Limits Vision Exceptions: Wears glasses for reading Hearing: Functional/adequate for paticipation in therapy Cognition/Orientation Overall Cognitive Status: WFL Overall Orientation Status: Within Functional Limits Subjective General Chart Reviewed: Yes Patient Assessed for Rehabilitation Services: Yes Family / Caregiver Present: No Subjective Subjective: Pt pleasant and cooperative. General Comments Comments: Per RN, ok for pt to participate in OT eval. Co-eval with PT as pt admitted with weakness. Patient Stated Goal: To go home. Pain Assessment Pain Assessment: No/denies pain Social/Functional History Social/Functional History Lives With: Spouse Type of Home: House Home Layout: One level Home Access: Stairs to enter with rails Entrance Stairs - Number of Steps: 2 Bathroom Shower/Tub: Tub/Shower unit Bathroom Toilet: Handicap height Receives Help From: Family ADL Assistance: Independent Homemaking Assistance: Independent Homemaking Responsibilities: Yes Ambulation Assistance: Independent With device?: No Transfer Assistance: Independent Active Foreign Law Consultant: Yes Mode of Transportation: Truck Objective Gross Assessment: Yes AROM: Within functional limits PROM: Within functional limits Strength: Within functional limits Coordination: Within functional limits Tone: Normal Sensation: Impaired (numbness/tingling in B feet) Observation/Palpation Posture: Good Observation: ICU tele, continuous O2 monitoring (SpO2 92-93% on RA) and PIV intact Balance Sitting Balance: Independent Standing Balance: Stand by assistance Functional Mobility Functional - Mobility Device: No device Activity: Other Assist Level: Stand by assistance Functional Mobility Comments: Pt ambulated a functional household distance in rodriguez with SBA and no LOB noted. ADL Feeding: Independent Grooming: Modified independent UE Bathing: Modified independent LE Bathing: Stand by assistance UE Dressing: Modified independent LE Dressing: Stand by assistance (Pt donned pants with SBA by flexing forward at hips, required SBA for standing balance when hiking past hips in standing.) Toileting: Modified independent Bed mobility Supine to Sit: Supervision Sit to Supine: Unable to assess (in chair post-session) Scooting: Supervision Comment: SUP for line management during bed mobility. Denied dizziness with changes in positioning. Transfers Sit to stand: Stand by assistance Stand to sit: Stand by assistance Transfer Comments: no device- 2 trials Plan Times per Week: 6 visits Current Treatment Recommendations: Balance Training, Functional Mobility Training, Endurance Training, Safety Education & Training, Self-Care / ADL, Positioning, Equipment Evaluation, Education, & procurement, Patient/Caregiver Education & Training, Home Management Training Plan Comment: POC and goals were made in collaboration with the pt. Safety Safety Devices in place: Yes Type of devices: All fall risk precautions in place, Call light within reach, Gait belt, Patient at risk for falls, Nurse notified, No alarms engaged upon entry into room, Left in chair AM-PAC Score AM-PAC Inpatient Daily Activity Raw Score: 22 ADL Inpatient CMS G-Code Modifier: CJ Goals Encounter Problems Encounter Problems (Active) Balance Patient will tolerate standing for 3 minutes mod I to allow increased independence in ADL routine. Start: 09/28/22 Expected End: 10/12/22 Dressings Lower Extremities Patient will complete lower body ADLs mod I. Start: 09/28/22 Expected End: 10/12/22 Mobility Patient will demonstrate functional ambulation mod I. Start: 09/28/22 Expected End: 10/12/22 Transfers Patient will complete functional transfer with modified independence in order to prepare for ambulation. Start: 09/28/22 Expected End: 10/12/22 Education Education Given To: Patient Education Provided: OT role, Plan of care Education Method: Verbal Barriers to Learning: None Education Outcome: Verbalized understanding, Continued education needed Therapy Time Individual Co-treatment Time In 1048 Time Out 1105 Minutes 17 Jane Bauer OT Will assume care upon transfer out of ICU. D/w Dr Hutchinson by phone. Images from the original note were not included. ICU Progress Note Name: Catarina Boyer : 1960(62 y.o.) Date: 09/28/22 Team: MICU Attending: Evangel[facility]: MICU CHIEF COMPLAINT Catarina Boyer is a 62 y.o. female presents with chief complaint of Weakness, Gen Diarrhea with NON ANION GAP METABOLIC ACIDOSIS and severe electrolyte abnormalities with severe hypomagenesemia and hypocalcemia initially presented on 09/27/2022, in ICU for 1d 2h Significant Interventions Stable overnight, tolerating diet. Ok for de-escalation to GMF Assessment/Plan Severe electrolyte disturbance, severe hypomagnesemia and hypocalcemia, resolved,iv replacement, hold po magox as causing diarrhea. Discontinue ppi as exacerbates. Nephro follow up, may need prn infusion of mag if not able to tolerate po replacement. Acute Diarrhea illness, pcr negative, supportive care, complicated by NON ANION GAP METABOLIC ACIDOSIS and severe electrolyte disturbances. Discussed precautions and prompt evaluation if recurrrence as severe hypomag recurrence can cause elevated morbidity. pt verbalized understanding and agreement Severe hypomagnesemia without cardiac or neuro disturbances Hypothyroidism - resume home synthroid 50 mcg Chronic gerd , uncontrolled, GI follow up advised with possible endoscopy . Prior EGD and colonoscopy on 10/27/2021. She had a tubular adenoma removed from her cecum. Gastric and GE junction biopsies were negative for H. pylori. 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 Gastric emptying study 11/27 was normal. Mesenteric artery duplex scan 12/14 was unremarkable. Plan : electrolyte correction , hold ppi as may exacerbate , po magox. Nephro follow up. May req OP IV replacement if intolerant to po replacement. Home meds, carafate, vitd , rosuvastatin, bentyl , norvasc, losartan , ppi, tylenol , levothyroixine 50 mcg Past Medical History: Diagnosis Date CKD (chronic kidney disease) stage 4, GFR 15-29 ml/min ([facility]) Follows with Dr. Moreno Focal segmental glomerulosclerosis GERD (gastroesophageal reflux disease) Hyperlipidemia Hypertension Hypomagnesemia Hypothyroidism Past Surgical History: Procedure Laterality Date CHOLECYSTECTOMY 01/20/2022 HYSTERECTOMY KNEE CARTILAGE SURGERY Right LAPAROSCOPY DIAGNOSTIC / BIOPSY / ASPIRATION / LYSIS 01/20/2022 cholecystectomy Interval History/ Subjective Admit: 09/27/2022 , ICU 1d 2h Evaluation: Improved diet, resolved gi signs and symptoms , no diarrhea, reviewd meds. Pt with mild dizziness when turning her head rapidly, likely related to electrolyte correction. If persistent can be evaluated with ENT Objective System Based Evaluation Continuous Infusions: Neuro: sedation none , no neuro deficits or electrolyte related neuro disturbances, . [] Encephalopathy [] Sedation for mechanical ventilation [] CT [] MRI [] EEG [] LP [] CAM-ICU + Hemodynamics: stable [] Vasopressor requirements : none [] Shock , [] Septic , [] Cardiogenic, [] Hypovolemic [] other Respiratory: stable, [] Respiratory Failure - acute [], chronic [] , hypoxic [] , hypercapnic [] [] Mechanical ventilation [] Pneumonia, pulmonary infiltrates No results found for: PHART, [id number], PO2ART, PHVEN, EOF3LFB Supplemental oxygen settings: Cardiovascular controlled bp RRR . [] RRR , [] Atrial fibrillation [] Tachycardia [] BP control rx change, infusion [] Echo reviewed : Abdominal soft, diarrhea improved Lab Results Component Value Date ALKPHOS 95 09/27/2022 ALT 10 09/27/2022 AST 18 09/27/2022 PROT 7.6 09/27/2022 BILITOT 0.5 09/27/2022 Renal status BIN on CKD 4, NON ANION GAP METABOLIC ACIDOSIS improving, bicarb 18 24HR INTAKE/OUTPUT: Intake/Output Summary (Last 24 hours) at 09/28/2022 0847 Last data filed at 09/28/2022 0637 Gross per 24 hour Intake -- Output 700 ml Net -700 ml BMP: Recent Labs 09/27/22 0714 09/27/22 1722 09/28/22 0428 NA 138 137 138 K 4.0 4.3 5.0 CL 111* 111* 113* CO2 14* 17* 18* BUN 26* 30* 28* CREATININE 2.28* 2.23* 2.37* GLUCOSE 92 96 103* CALCIUM 7.6* 8.3* 8.9 MG 1.6 1.7 1.7 PHOS 4.4 5.4* 5.4* [x] Chronic Renal Failure, oliguric [] , GEOPHYSICS SCIENTIST indications [] [] ESRD on HD Infectious, source no clear- gi pcr negative , cultures negative , abx none CBC: Recent Labs 09/27/22 0510 09/28/22 0428 WBC 8.1 7.2 HGB 9.2* 9.2* PLT 296 284 No results found for: INR, INR, PTINR This patient has no babies on file. Lab Results Component Value Date LACTATE 0.8 09/27/2022 Endocrine [x] glucose at goal , [] Adrenal insufficiency or alt endocrine ddx Physical Exam Personally Reviewed: [x]Notes [x]PMHx [x]Pre-Admit and Current Medication review/ reconciliation [x]Radiology [x]Labs [x]EKG/ Echo [x]Micro, Cultures , Abx []Other []Other Exam Findings aox3, nad , cta bilat, abdomen soft , rrr, no LE edema, VITALS: BP 112/61 Pulse 64 Temp 36.8 C (98.3 F) (Oral) Resp 17 Ht 1.6 m (5' 3) Wt 102 kg (225 lb) SpO2 97% BMI 39.86 kg/m : CURRENT PULSE OXIMETRY: SpO2: 97 % 24HR PULSE OXIMETRY RANGE: SpO2 Av % Min: 63 % Max: 100 % [x] DVT / GI Prophylaxis reviewed lovenox and ppi [x]Glucose Control [x]Nutrition Dietary Orders (From admission, onward) Start Ordered 09/27/22 1018 Supplement:Dinner; Vanilla Ensure High Protein Until discontinued Question Answer Comment Frequency Dinner Select supplement: Vanilla Ensure High Protein 09/27/22 1017 09/27/22 1016 Supplement:Lunch; Chocolate Ensure High Protein Until discontinued Question Answer Comment Frequency Lunch Select supplement: Chocolate Ensure High Protein 09/27/22 1015 09/27/22 1015 Supplement:Breakfast; Apple Ensure Clear Until discontinued Question Answer Comment Frequency Breakfast Select supplement: Apple Ensure Clear 09/27/22 1015 09/27/22 0843 Adult diet Regular Diet effective now Question: Diet type Answer: Regular 09/27/22 0842 Rounding Bundle : A2G Bundle Daily goal : advance diet, transfer to [facility] A- Pain controlled B - SAT SBT n/a C - choice of sedation n/a D - Delirium / CAM ICU negative E - early mobility PT / OT consulted F - Family Involved / Patient Updated yest G - glycemic control Glucose: Recent Labs 09/27/22 01109/27/2271309/27/22 17209/28/22 0428 GLUCOSE 114* 92 96 103* Invasive Lines / Tubes / Drains Peripheral IV 09/27/22 Right Antecubital (Active) Number of days: 1 Peripheral IV 09/27/22 Posterior;Left Hand (Active) Number of days: 1 Additional Clinical Data Scheduled Meds enoxaparin, 40 mg, SubCUTAneous, Daily nystatin, 5 mL, Swish & Swallow, 4x daily pantoprazole, 40 mg, Oral, qAM AC Continuous Infusions: Weight 102 kg (225 lb) (09/28/22 0600) BMI Body mass index is 39.86 kg/m . Select Labs within last 24 hours- BMP: Recent Labs 09/27/2271309/27/22172109/28/22 0428 NA 138 137 138 K 4.0 4.3 5.0 CL 111* 111* 113* CO2 14* 17* 18* BUN 26* 30* 28* CREATININE 2.28* 2.23* 2.37* CALCIUM 7.6* 8.3* 8.9 MG 1.6 1.7 1.7 PHOS 4.4 5.4* 5.4* LFTs: Recent Labs 09/27/22 011 AST 18 ALT 10 PROT 7.6 ALBUMIN 4.6 BILITOT 0.5 ALKPHOS 95 LIPASE 186 Glucose: Recent Labs 09/27/22 0119 09/27/22 0714 09/27/22 1722 09/28/22 0428 GLUCOSE 114* 92 96 103* Procal: No results for input(s): PROCAL in the last 72 hours. CBC: Recent Labs 09/27/22 0119 09/27/22 0510 09/28/22 0428 WBC 10.2 8.1 7.2 HGB 10.8* 9.2* 9.2* HCT 33.1* 28.0* 27.9* PLT 348 296 284 MCV 83.4 83.7 83.9 RDW 14.0 14.0 13.9 ABGs: No results for input(s): PHART, BKT8OQP, PO2ART, SNG8WOS, SO2ART, S5SKRQHT in the last 72 hours. Lactic Acid: Recent Labs 09/27/22 0136 LACTATE 0.8 INR: No results for input(s): INR in the last 72 hours. Cardiac Injury Profile: No results for input(s): CKTOTAL, CKMB, TROPONINI in the last 72 hours. Labs in Last 3 months: Lab Results Component Value Date TSH 1.965 09/27/2022 VITD25 28 (L) 05/21/2019 Microbiology- Procal: No results for input(s): PROCAL in the last 72 hours. Blood Cx: No results found for: BLOODCX Sputum Cx: No results found for: RESPCULT Gram Stain: No results found for: LABGRAM PNA PCR: Lab Results Component Value Date HUMANMETAPNE Not Detected 09/27/2022 COVID19: No results found for: COVID19 Legionella Ag: No results found for: LEGIONELLAPN Strep Ag: No results for input(s): STREPPNEUMO in the last 72 hours. Urine Cx: No results found for: URINECX Imaging- CXR portable:No results found for this or any previous visit. CXR (2V): No results found for this or any previous visit. CT Chest: No results found for this or any previous visit. CTA Chest: No results found for this or any previous visit. Echo : No echocardiogram results found for the past 12 months Excluding procedures, the total critical care time caring for this patient with life threatening, unstable organ failure, including direct patient contact, review of medical record, management of life support systems, review of data including imaging and labs, discussions with other team members, patient's family and physicians at least 35 minutes so far today. High complexity decision making in critically ill/injured patient in which there is acute impairment of one or more vital organ systems, such that there is a probability of imminent or life-threatening deterioration of the patient s condition. Full Code Nutrition Assessment Type and Reason for Visit: Initial, Positive Nutrition Screen, Consult (poor po prior to adm) Nutrition Recommendations/Plan: Suggest to continue a regular diet as tolerated to promote intake- patient states no appetite . Reluctant to try oral nutrition supplements - did agree to apple Ensure clear(Ensure Clear provides 240 kcals, 8 g protein per serving) and Ensure high protein bid( 160 palmira, 16 gm pro/serving). Wants to try cheeseburger for lunch. Can select her own meals, Please document PO intakes-diet and ONS consistently in the flowsheet to better assess intake adequacy. May benefit from mvi Monitor labs, status, intakes,wts to reassess. Follow up at least weekly Malnutrition Assessment: Malnutrition Status: Severe malnutrition Context: Acute Illness Findings of the 6 clinical characteristics of malnutrition: Energy Intake: 50% or less of estimated energy requirements for 5 or more days Weight Loss: (lost 7.7 % in 2 mos but most in last 10 days per pt) Body Fat Loss: Mild body fat loss Orbital Muscle Mass Loss: Moderate muscle mass loss Temples (temporalis), Hand (interosseous) Fluid Accumulation: No significant fluid accumulation Superintendent Strength: Measurable reduction in senior controls analyst strength Nutrition Assessment: PER AIRPORT SKILLED MAINTENANCE SUPERVISOR-Subjective: Chief Complaint: Nausea/Vomiting/Diarrhea HPI: This is a 62 y.o F with a PMH of HTN, HPL, Hypothyroidism, CKD stage 4, chronic hypomagnesemia and GERD who presents to the ED this morning with nausea vomiting diarrhea which began approximately September 17. Since this time she reports poor p.o. intake, decreased activity, fatigue, chills, dizziness, some palpitations, abdominal cramping that is slightly superior to the umbilicus region rated 5 out of 10 and nonradiating. She is attempted to treat this with crackers and hunter fabrice which have only made symptoms worse. She denies sick contacts or travel. Work-up in the ER shows a NAGMA, creatinine of 2.5 which appears near baseline, ionized calcium of 3.6 and magnesium of less than 0.2. No leukocytosis, normal lactate. CT of the abdomen pelvis with no acute process. Patient was treated with calcium and magnesium in the ER.Assessment 1. N/V/D 2. Hypomagnesemia 3. Hypocalcemia 4. NAGMA 5. Hx CKD stage 4 6. Hx HTN/HPL 7. Hx Anemia 8. Tobacco abuse Plan 1. No clear cause of nausea vomiting diarrhea. Patient denies any coffee-ground emesis or hematemesis or hematochezia. No recent travel no recent sick exposures. 2. Check acute hepatitis panel and GI PCR. 3. There is no EKG changes, no seizures no neuro changes. 4. Patient with chronic hypomagnesemia secondary to CKD on oral replacement. Has not taken oral replacement recently. Now believe acute hypomagnesemia is related to GI losses. Will resume home oral replacement as she tolerates. Given 4 g of mag in the ER. Replace based on future labs. 5. Hypocalcemia likely related to hypomagnesemia. Patient given 1 g of calcium gluconate, given additional 3 g now. Replace based on future labs 6. Cycle BMP, mag, Phos, ionized calcium every 6 hours. 7. Neurochecks 8. Seizure precautions 9. Repeat twelve-lead EKG at noon 10. NAGMA likely secondary to GI losses. Will treat with LR at this time. BMP as above 11. Hold home Norvasc 12. Hemoglobin appears at baseline. 13. Cessation counseling discussed with patient, declines nicotine patch at present. Estimated Daily Nutrient Needs: Energy Requirements Based On: Kcal/kg Weight Used for Energy Requirements: [place] Weight for Energy Calculation (kg): 52 kg Total Energy Requirements (kcals/day): 28-32 or 8603-7512 Weight Used for Protein Requirements: [place] Weight in Kg Used for Protein Requirements: 52 kg Estimated Total Protein (g/day): .8-1 or 42-52 Estimated Daily Total Fluid (ml/day): or per md Nutrition Related Findings: weak senior controls analyst -NO APPETITE,nausea resolved with phenergan, ca 4.2, bun 26, creat 2.28,hgb 9.2, ca 7.6, 6/5 bm., no edema. on mag, nystatin-FEARFUL OF EATING Wound Type: None Current Nutrition Therapies: Adult diet Regular Current Oral Intake Average Meal Intake: 0% Average Supplements Intake: None Ordered (RD will initiate) Anthropometric Measures: Height: 160 cm (5' 3) Current Body Weight: 97.5 kg (215 lb) (09/26 home scale) Weight Source: Standing Scale Usual Body Weight: 106 kg (233 lb) (07/21/22) % Weight Change (Calculated): -7.7 [place] Body Weight (lbs) (Calculated): 115 lbs [place] Body Weight (Kg) (Calculated): 52 kg % [place] Body Weight (Calculated): 187 % BMI (kg/m2) (Calculated): 38.1 BMI Categories: Obese Class 2 (BMI 35.0 -39.9) Nutrition Diagnosis: Severe malnutrition, Inadequate protein-energy intake related to inadequate protein-energy intake, early satiety as evidenced by poor intake prior to admission, intake 0-25%, nausea, vomiting, diarrhea, reduced senior controls analyst strength, moderate muscle loss, weight loss (7.7 in 2 mos documented - low po 10 days) Altered nutrition-related lab values related to renal dysfunction as evidenced by lab values Nutrition Interventions: Nutrition Education/Counseling: Education initiated (need for calorie intake , protein intake) Coordination of Nutrition Care: Continue to monitor while inpatient, Feeding Assistance/Environment Change Plan of Care discussed with: pt Goals: Goals: PO intake 50% or greater, other (specify) Specify Other Goals: meet 75% of needs with ons Nutrition Monitoring and Evaluation: Behavioral-Environmental Outcomes: None Identified Food/Nutrient Intake Outcomes: Food and Nutrient Intake, Supplement Intake Physical Signs/Symptoms Outcomes: Biochemical Data, Chewing or Swallowing, GI Status, Nausea or Vomiting, Fluid Status or Edema, Hemodynamic Status, Meal Time Behavior, Nutrition Focused Physical Findings, Skin, Weight Discharge Planning: Continue current diet, Continue Oral Nutrition Supplement Allison Roca RD Contact: *[phone] or secure chat documented in this encounter [facility] 09-28-2022 Note ICU Progress Note Name: Catarina Boyer : 1960(62 y.o.) Date: 09/28/22 Team: MICU Attending: Evangelina Internal Medicine: MICU CHIEF COMPLAINT Catarinateo Boyer is a 62 y.o. female presents with chief complaint of Weakness, Gen Diarrhea with NON ANION GAP METABOLIC ACIDOSIS and severe electrolyte abnormalities with severe hypomagenesemia and hypocalcemia initially presented on 09/27/2022, in ICU for 1d 2h Significant Interventions Stable overnight, tolerating diet. Ok for de-escalation to GMF Assessment/Plan Severe electrolyte disturbance, severe hypomagnesemia and hypocalcemia, resolved,iv replacement, hold po magox as causing diarrhea. Discontinue ppi as exacerbates. Nephro follow up, may need prn infusion of mag if not able to tolerate po replacement. Acute Diarrhea illness, pcr negative, supportive care, complicated by NON ANION GAP METABOLIC ACIDOSIS and severe electrolyte disturbances. Discussed precautions and prompt evaluation if recurrrence as severe hypomag recurrence can cause elevated morbidity. pt verbalized understanding and agreement Severe hypomagnesemia without cardiac or neuro disturbances Hypothyroidism - resume home synthroid 50 mcg Chronic gerd , uncontrolled, GI follow up advised with possible endoscopy . Prior EGD and colonoscopy on 10/27/2021. She had a tubular adenoma removed from her cecum. Gastric and GE junction biopsies were negative for H. pylori. 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 Gastric emptying study 11/27 was normal. Mesenteric artery duplex scan 12/14 was unremarkable. Plan : electrolyte correction , hold ppi as may exacerbate , po magox. Nephro follow up. May req OP IV replacement if intolerant to po replacement. Home meds, carafate, vitd , rosuvastatin, bentyl , norvasc, losartan , ppi, tylenol , levothyroixine 50 mcg Past Medical History: Diagnosis Date CKD (chronic kidney disease) stage 4, GFR 15-29 ml/min ([facility]) Follows with Dr. Moreno Focal segmental glomerulosclerosis GERD (gastroesophageal reflux disease) Hyperlipidemia Hypertension Hypomagnesemia Hypothyroidism Past Surgical History: Procedure Laterality Date CHOLECYSTECTOMY 01/20/2022 HYSTERECTOMY KNEE CARTILAGE SURGERY Right LAPAROSCOPY DIAGNOSTIC / BIOPSY / ASPIRATION / LYSIS 01/20/2022 cholecystectomy Interval History/ Subjective Admit: 09/27/2022 , ICU 1d 2h Evaluation: Improved diet, resolved gi signs and symptoms , no diarrhea, reviewd meds. Pt with mild dizziness when turning her head rapidly, likely related to electrolyte correction. If persistent can be evaluated with ENT Objective System Based Evaluation Continuous Infusions: Neuro: sedation none , no neuro deficits or electrolyte related neuro disturbances, . [] Encephalopathy [] Sedation for mechanical ventilation [] CT [] MRI [] EEG [] LP [] CAM-ICU + Hemodynamics: stable [] Vasopressor requirements : none [] Shock , [] Septic , [] Cardiogenic, [] Hypovolemic [] other Respiratory: stable, [] Respiratory Failure - acute [], chronic [] , hypoxic [] , hypercapnic [] [] Mechanical ventilation [] Pneumonia, pulmonary infiltrates No results found for: PHART, KAH2JDN, PO2ART, PHVEN, EQS0NRW Supplemental oxygen settings: Cardiovascular controlled bp RRR . [] RRR , [] Atrial fibrillation [] Tachycardia [] BP control rx change, infusion [] Echo reviewed : Abdominal soft, diarrhea improved Lab Results Component Value Date ALKPHOS 95 09/27/2022 ALT 10 09/27/2022 AST 18 09/27/2022 PROT 7.6 09/27/2022 BILITOT 0.5 09/27/2022 Renal status BIN on CKD 4, NON ANION GAP METABOLIC ACIDOSIS improving, bicarb 18 24HR INTAKE/OUTPUT: Intake/Output Summary (Last 24 hours) at 09/28/2022 0847 Last data filed at 09/28/2022 0637 Gross per 24 hour Intake -- Output 700 ml Net -700 ml BMP: Recent Labs 09/27/22 0714 09/27/22 1722 09/28/22 0428 NA 138 137 138 K 4.0 4.3 5.0 CL 111* 111* 113* CO2 14* 17* 18* BUN 26* 30* 28* CREATININE 2.28* 2.23* 2.37* GLUCOSE 92 96 103* CALCIUM 7.6* 8.3* 8.9 MG 1.6 1.7 1.7 PHOS 4.4 5.4* 5.4* [x] Chronic Renal Failure, oliguric [] , GEOPHYSICS SCIENTIST indications [] [] ESRD on HD Infectious, source no clear- gi pcr negative , cultures negative , abx none CBC: Recent Labs 09/27/22 0510 09/28/22 0428 WBC 8.1 7.2 HGB 9.2* 9.2* PLT 296 284 No results found for: INR, INR, PTINR This patient has no babies on file. Lab Results Component Value Date LACTATE 0.8 09/27/2022 Endocrine [x] glucose at goal , [] Adrenal insufficiency or alt endocrine ddx Physical Exam Personally Reviewed: [x]Notes [x]PMHx [x]Pre-Admit and Current Medication review/ reconciliation [x]Radiology [x]Labs [x]EKG/ Echo [x]Micro, Cultures , Abx []Other []Other Exam Findings aox3, nad , cta bilat, abdomen soft , rrr, no LE edema, VITALS: BP 112/61 Pulse 64 Temp 36.8 ?C (98.3 ?F) (Oral) Resp 17 Ht 1.6 m (5' 3 (more content not included)... [facility] 09-27-2022 Note IMPRESSION: Sinus rhythm Abnormal R-wave progression, early transition Nonspecific T abnormalities, lateral leads Compared to ECG 10/01/2021 15:33:29 T-wave abnormality now present Electronically Signed On 09-27-2022 14:44:39 EDT by Stoney Maurice [facility] 09-27-2022 Note Sinus rhythm Abnormal R-wave progression, early transition Nonspecific T abnormalities, lateral leads Compared to ECG 10/01/2021 15:33:29 T-wave abnormality now present Electronically Signed On 09-27-2022 14:44:39 EDT by Stoney Maurcie [facility] 09-27-2022 Note Sinus rhythm Abnormal R-wave progression, early transition Nonspecific T abnormalities, lateral leads Compared to ECG 10/01/2021 15:33:29 T-wave abnormality now present Electronically Signed On 09-27-2022 14:44:39 EDT by Stoney Maurice [facility] 09-27-2022 Note Formatting of this n ote might be different from the original. Care Managment Initial Assessment Date: 09/27/2022 Patient Name: Catarina Boyer : 1960 Patient Information Source of Information: Patient Cognition/Language: WFL - Within Functional Limits Permission given to speak with patient public health representative/caregiver as indicated: Confirmation of Payer with patient/family: Yes Payer Name: Edis NIETO Commercial : No Confirmation of Primary Care Physician: Confirmed PCP Name: Dr Camille Goodman Seen in last 2 years?: Yes Primary Caregiver: Self If assistance needed, confirmed caregiver ready, willing and able to care for patient at discharge: Yes Confirmed with: Donald Living Arrangements Current Residence: House (Ranch with basement) Number of Floors 1 (Does not use basement) Number of Entry Steps: 2 Bed/Bath Levels: Both first floor Facility: Facility Name: Plan to Return: Lives with: Spouse/significant other Support Systems: Spouse/significant other, Family members, Friends/neighbors Activities of Daily Living Ambulation: Independent Bathing/Dressing: Independent Elimination/Continence/Toileting: Independent Feeding: Independent Who Assists with Activities of Daily Living: Instrumental Activities of Daily Living Prescription Coverage: Yes [facility]acy Used: [facility] [place], [place] Medication Management: Independent Transportation/Shopping: Independent Transportation Mode: Car Needs Assistance with Transportation at Discharge: No (Donald is able to transport home) Meal Preparation: Laundry/Cleaning: Independent Finances/Bill Paying: Independent Communication: Independent Types of Care Services/Equipment Utilized Care Services: Dialysis Type: Durable Medical Equipment: DME Provider: No DME Patient's Goal/Discharge Plan Patient expects to be discharged to: Home and back to work Discharge Planning Actions: No needs identified Patient's Choice Rights and [employer] and Collaborative Relationships Disclosed as Indicated for Post-Acute Care: Interdisciplinary Team Engagement: Social Work Referral for: Additional Information: Introduced self and role. Patient admitted for hypomagnesia. Patient was independent and working prior to admission. Patient has insurance and prescription coverage, uses [facility] [place] for [facility]. Plan to DC home and back to work. No needs identified. Patient verbalizes understanding and is in agreement with POC. Peggy Smyth RN [facility] 09-27-2022 Note Formatting of this n ote might be different from the original. Care Managment Initial Assessment Date: 09/27/2022 Patient Name: Catarina Boyer : 1960 Patient Information Source of Information: Patient Cognition/Language: WFL - Within Functional Limits Permission given to speak with patient public health representative/caregiver as indicated: Confirmation of Payer with patient/family: Yes Payer Name: Edis NIETO Commercial Carmichaels: No Confirmation of Primary Care Physician: Confirmed PCP Name: Dr Camille Goodman Seen in last 2 years?: Yes Primary Caregiver: Self If assistance needed, confirmed caregiver ready, willing and able to care for patient at discharge: Yes Confirmed with: Donald Living Arrangements Current Residence: House (Ranch with basement) Number of Floors 1 (Does not use basement) Number of Entry Steps: 2 Bed/Bath Levels: Both first floor Facility: Facility Name: Plan to Return: Lives with: Spouse/significant other Support Systems: Spouse/significant other, Family members, Friends/neighbors Activities of Daily Living Ambulation: Independent Bathing/Dressing: Independent Elimination/Continence/Toileting: Independent Feeding: Independent Who Assists with Activities of Daily Living: Instrumental Activities of Daily Living Prescription Coverage: Yes [facility]acy [facility] [place] [place] Medication Management: Independent Transportation/Shopping: Independent Transportation Mode: Car Needs Assistance with Transportation at Discharge: No (Donald is able to transport home) Meal Preparation: Laundry/Cleaning: Independent Finances/Bill Paying: Independent Communication: Independent Types of Care Services/Equipment Utilized Care Services: Dialysis Type: Durable Medical Equipment: DME Provider: No DME Patient's Goal/Discharge Plan Patient expects to be discharged to: Home and back to work Discharge Planning Actions: No needs identified Patient's Choice Rights and [employer] and Collaborative Relationships Disclosed as Indicated for Post-Acute Care: Interdisciplinary Team Engagement: Social Work Referral for: Additional Information: Introduced self and role. Patient admitted for hypomagnesia. Patient was independent and working prior to admission. Patient has insurance and prescription coverage, [facility] [place] [facility]. Plan to DC home and back to work. No needs identified. Patient verbalizes understanding and is in agreement with POC. Peggy Smyth RN [facility] 09-27-2022 Consult note Associated Order (s): IP CONSULT TO DIETITIAN Type and Reason for Visit: Initial, Positive Nutrition Screen, Consult (poor po prior to adm) Nutrition Recommendations/Plan: Suggest to continue a regular diet as tolerated to promote intake- patient states no appetite . Reluctant to try oral nutrition supplements - did agree to apple Ensure clear(Ensure Clear provides 240 kcals, 8 g protein per serving) and Ensure high protein bid( 160 palmira, 16 gm pro/serving). Wants to try cheeseburger for lunch. Can select her own meals, Please document PO intakes-diet and ONS consistently in the flowsheet to better assess intake adequacy. May benefit from mvi Monitor labs, status, intakes,wts to reassess. Follow up at least weekly Malnutrition Assessment: Malnutrition Status: Severe malnutrition Context: Acute Illness Findings of the 6 clinical characteristics of malnutrition: Energy Intake: 50% or less of estimated energy requirements for 5 or more days Weight Loss: (lost 7.7 % in 2 mos but most in last 10 days per pt) Body Fat Loss: Mild body fat loss Orbital Muscle Mass Loss: Moderate muscle mass loss Temples (temporalis), Hand (interosseous) Fluid Accumulation: No significant fluid accumulation Superintendent Strength: Measurable reduction in senior controls analyst strength [facility] 09-27-2022 Plan of care note Follow up from overnight admission: clinically improved No neuromuscular, weaver dobby loom or cardiac abnormalities. Electrolytes replaced. Ivf discontinue in setting of nagma, renal function stable. Held PO Magnesium as likely exacerbating diarrhea. Advanced diet, electrolytes q12. If stable and tolerating, can de-escalate to GMF in next 12-24 hrs [facility] 09-27-2022 Note Internal Medicine: I CU Initial History and Physical Catarina Boyer : 1960(62 y.o.) Date: September 27, 2022 Attending: Dr. Hernandez Subjective: Chief Complaint: Nausea/Vomiting/Diarrhea HPI: This is a 62 y.o F with a PMH of HTN, HPL, Hypothyroidism, CKD stage 4, chronic hypomagnesemia and GERD who presents to the ED this morning with nausea vomiting diarrhea which began approximately September 17. Since this time she reports poor p.o. intake, decreased activity, fatigue, chills, dizziness, some palpitations, abdominal cramping that is slightly superior to the umbilicus region rated 5 out of 10 and nonradiating. She is attempted to treat this with crackers and hunter fabrice which have only made symptoms worse. She denies sick contacts or travel. Work-up in the ER shows a NAGMA, creatinine of 2.5 which appears near baseline, ionized calcium of 3.6 and magnesium of less than 0.2. No leukocytosis, normal lactate. CT of the abdomen pelvis with no acute process. Patient was treated with calcium and magnesium in the ER. ICU contacted for admission. Past Medical History: Diagnosis Date CKD (chronic kidney disease) stage 4, GFR 15-29 ml/min ([facility]) Follows with Dr. Moreno Focal segmental glomerulosclerosis GERD (gastroesophageal reflux disease) Hyperlipidemia Hypertension Hypomagnesemia Hypothyroidism Past Surgical History: Procedure Laterality Date CHOLECYSTECTOMY 01/20/2022 HYSTERECTOMY KNEE CARTILAGE SURGERY Right LAPAROSCOPY DIAGNOSTIC / BIOPSY / ASPIRATION / LYSIS 01/20/2022 cholecystectomy Family History Problem Relation Name Age of Onset Heart disease Mother Diabetes Father Social History Socioeconomic History Marital status: Spouse name: Not on file Number of children: Not on file Years of education: Not on file Highest education level: Not on file Occupational History Not on file Tobacco Use Smoking status: Every Day Packs/day: 0.50 Years: 40.00 Pack years: 20.00 Types: Cigarettes Smokeless tobacco: Never Vaping Use Vaping Use: Never used Substance and Sexual Activity Alcohol use: No Drug use: Never Sexual activity: Not on file Other Topics Concern Not on file Social History Narrative Not on file Social Determinants of Health Financial Resource Strain: Not on file Food Insecurity: Not on file Transportation Needs: Not on file Physical Activity: Not on file Stress: Not on file Social Connections: Not on file Intimate Partner Violence: Not on file Housing Stability: Not on file Allergies Allergen Reactions Codeine Cough, Hives and Nausea And Vomiting Moxifloxacin Nausea And Vomiting and Hives Penicillins Hives and Nausea Only Hydromorphone Nausea And Vomiting Morphine Nausea And Vomiting and Hives Oxycodone-Acetaminophen Nausea And Vomiting and Hives Prior to Admission medications Medication Sig Start Date End Date Taking? Authorizing Provider ondansetron (Zofran) 4 MG tablet TAKE 1 TABLET BY MOUTH DAILY NEEDED FOR NAUSEA OR VOMITING 01/20/22 01/20/23 Tye Sanon MD polyethylene glycol, PEG, 3350 (Glycolax) 17 GM/SCOOP powder TAKE 17 G BY MOUTH DAILY NEEDED (CONSTIPATION) 01/20/22 01/20/23 Tye Sanon MD Objective: Oxygen Delivery - VITALS: BP 108/83 Pulse 66 Temp 36.7 ?C (98 ?F) (Temporal) Resp 18 Ht 1.6 m (5' 3) Wt 97.5 kg (215 lb) SpO2 98% BMI 38.09 kg/m? CURRENT PULSE OXIMETRY: SpO2: 98 % Review of Systems Constitutional: Positive for activity change, appetite change, chills and fatigue. Negative for diaphoresis, fever and unexpected weight change. HENT: Positive for congestion. Eyes: Positive for visual disturbance (Blurred vision). Respiratory: Positive for shortness of breath (with activity). Negative for cough. Cardiovascular: Positive for palpitations. Negative for chest pain and leg swelling. Gastrointestinal: Positive for abdominal pain (5/10 pressure/bloating), diarrhea, nausea and vomiting. Negative for blood in stool. Endocrine: Negative for polydipsia and polyuria. Genitourinary: Negative for dysuria, flank pain, frequency and urgency. Musculoskeletal: Negative for back pain, myalgias and neck pain. Skin: Negative for rash and wound. Allergic/Immunologic: Negative for environmental allergies and food allergies. Neurological: Positive for dizziness and headaches. Negative for seizures and syncope. Hematological: Bruises/bleeds easily. Psychiatric/Behavioral: Negative for dysphoric mood. The patient is not nervous/anxious. Physical Exam Vitals and nursing note reviewed. Constitutional: General: She is awake. She is not in acute distress. Appearance: She is well-developed. She is morbidly obese. She is ill-appearing. She is not toxic-appearing or diaphoretic. HENT: Head: Normocephalic and atraumatic. Right Ear: External ear normal. Left Ear: External ear normal. Nose: Nose normal. Mouth/Throat: Mouth: Mucous membr (more content not included)... [facility] 09-27-2022 Emergency department Note Pt is actively shaking and vomiting. Adia Glez RN 09/27/22 0059 [facility] 09-27-2022 Emergency department Note Pt is actively shaking and vomiting. Adia Glez RN 09/27/22 0059 EMERGENCY DEPARTMENT ENCOUNTER Pt Name: Catarina Boyer Birthdate 1960 Date of evaluation: 09/27/2022 ED Provider: Iman Argueta DO CHIEF COMPLAINT Chief Complaint Patient presents with Weakness, Gen HISTORY OF PRESENT ILLNESS (Location/Symptom, Timing/Onset, Context/Setting, Quality, Duration, Modifying Factors, Severity) Note limiting factors. I wore appropriate PPE for the entirety of this encounter. HPI Catarina Boyer is a 62 y.o. female who presents to the emergency department with chief complaint of nausea, emesis, diarrhea. Patient reports nausea, dry heaves, emesis, diarrhea, abdominal cramping for the past week. Patient reports progressive fatigue, dyspnea, chills, tremors. Patient reports abdominal cramping is epigastric in nature, denies any radiation of her pain. Patient reports she has been unable to keep anything down by mouth. Patient reports frequent loose bowel movements, without hematochezia or melena. Patient denies any known sick contacts at home, has been off of work on vacation for the past week. Patient denies any travel. Denies any dysuria, urinary frequency, urinary urgency, hematochezia or melena. Patient reports history of hypomagnesemia, however has been unable to keep down any of her magnesium supplementation this week. Reports she has been unable to keep down her blood pressure medications other chronic medications either. Nursing Notes were reviewed. Limitations to history: None Outside historians: None REVIEW OF SYSTEMS Review of Systems PAST MEDICAL HISTORY Past Medical History: Diagnosis Date CKD (chronic kidney disease) stage 4, GFR 15-29 ml/min ([facility]) Follows with Dr. Moreno Focal segmental glomerulosclerosis GERD (gastroesophageal reflux disease) Hyperlipidemia Hypertension Hypomagnesemia Hypothyroidism SURGICAL HISTORY Past Surgical History: Procedure Laterality Date CHOLECYSTECTOMY 01/20/2022 HYSTERECTOMY KNEE CARTILAGE SURGERY Right LAPAROSCOPY DIAGNOSTIC / BIOPSY / ASPIRATION / LYSIS 01/20/2022 cholecystectomy CURRENT MEDICATIONS Previous Medications ONDANSETRON (ZOFRAN) 4 MG TABLET TAKE 1 TABLET BY MOUTH DAILY NEEDED FOR NAUSEA OR VOMITING POLYETHYLENE GLYCOL, PEG, 3350 (GLYCOLAX) 17 GM/SCOOP POWDER TAKE 17 G BY MOUTH DAILY NEEDED (CONSTIPATION) ALLERGIES Codeine, Moxifloxacin, Penicillins, Hydromorphone, Morphine, and Oxycodone-acetaminophen FAMILY HISTORY Family History Problem Relation Name Age of Onset Heart disease Mother Diabetes Father SOCIAL HISTORY Social History Socioeconomic History Marital status: Tobacco Use Smoking status: Every Day Packs/day: 0.50 Years: 40.00 Pack years: 20.00 Types: Cigarettes Smokeless tobacco: Never Vaping Use Vaping Use: Never used Substance and Sexual Activity Alcohol use: No Drug use: Never SCREENINGS PHYSICAL EXAM ED Triage Vitals [09/27/22 0030] Temp Heart Rate Resp BP 36.7 C (98 F) 85 16 (!) 149/95 SpO2 Temp Source Heart Rate Source Patient Position 97 % Temporal Monitor -- BP Location FiO2 (%) -- -- GENERAL APPEARANCE: Awake and alert. Cooperative. Appears unwell. HEAD: Normocephalic. Atraumatic. EYES: EOM's grossly intact. Sclera anicteric. ENT: Mucous membranes are tacky. Tolerates saliva. No trismus. NECK: Supple. No meningismus. Trachea midline. HEART: RRR. Radial pulses 2+. LUNGS: Respirations unlabored. CTAB ABDOMEN: Soft. Minimally tender to palpation in epigastrium without guarding, rigidity or rebound. EXTREMITIES: No acute deformities. SKIN: Warm and dry. NEUROLOGICAL: No gross facial drooping. Moves all 4 extremities spontaneously. DTRs appropriate. Muscular strength 5/5 all extremities. PSYCHIATRIC: Normal mood. DIAGNOSTIC RESULTS Procedures/EKG: EKG was reviewed by myself. Physician EKG interpretation can be found in [facility] RADIOLOGY (Per Emergency Physician): Interpretation per the Radiologist below, if available at the time of this note: CT abdomen pelvis wo IV contrast Final Result 1. No acute abnormality identified. 2. Stable renal lesions hyperdense foci, likely hemorrhagic cysts. 3. Sigmoid diverticulosis. Report Dictated on Electronically Signed By: Vijay Luo Electronically Signed Date/Time: 09/27/2022 1:52 AM EDT ED BEDSIDE ULTRASOUND: Performed by ED Physician - none LABS: Labs Reviewed CBC (HEMOGRAM) - Abnormal Result Value Auto WBC 10.2 RBC 3.96 Hemoglobin 10.8 (*) Hematocrit 33.1 (*) MCV 83.4 MCH 27.3 MCHC 32.7 RDW 14.0 Platelets 348 MPV 9.5 COMPREHENSIVE METABOLIC PANEL - Abnormal SODIUM 138 POTASSIUM 4.3 CHLORIDE 110 (*) CARBON DIOXIDE 17 (*) ANION GAP 12 UREA NITROGEN 27 (*) CREATININE 2.53 (*) GLUCOSE 114 (*) CALCIUM 7.2 (*) AST (SGOT) 18 ALT 10 ALKALINE PHOSPHATASE 95 ALBUMIN 4.6 BILIRUBIN, TOTAL 0.5 TOTAL PROTEIN 7.6 eGFR 21.2 (*) CALCIUM, IONIZED - Abnormal Calcium, Ion 3.60 (*) PH, IONIZED CALCIUM 7.33 MAGNESIUM - Abnormal MAGNESIUM <0.2 (*) SARS-COV-2, FLU A/B, AND RSV COMBO - Normal SARS-CoV-2 Not Detected Respiratory Syncytial Virus Not Detected Influenza A Not Detected Influenza B Not Detected Narrative: Methodology: real-time, RT-PCR The SARS-CoV-2, Flu A/B, and RSV Combo assay is intended for in vitro diagnostic use under the FDA Emergency Use Authorization (EUA). This test has not been FDA cleared or approved. In compliance with this authorization, please visit www.fda.gov/media/453165/download or www.fda.gov/media/459415/download to access the applicable information sheets. LIPASE - Normal LIPASE 186 LACTIC ACID, SEPSIS WITH REFLEX IF ELEVATED - Normal LACTIC ACID 0.8 THYROID STIMULATING HORMONE - Normal THYROID STIMULATING HORMONE 1.965 PHOSPHORUS - Normal PHOSPHORUS 4.3 GASTROINTESTINAL PCR PANEL SARS-COV-2 AND RESPIRATORY PCR PANEL CBC WITH AUTO DIFFERENTIAL HEPATITIS PANEL, ACUTE All other labs were within normal range or not returned as of this dictation. EMERGENCY DEPARTMENT COURSE and DIFFERENTIAL DIAGNOSIS/MDM: Vitals: Vitals: 09/27/22 0030 09/27/22 0036 09/27/22 0248 BP: (!) 149/95 108/83 Pulse: 85 66 Resp: 16 18 Temp: 36.7 C (98 F) TempSrc: Temporal SpO2: 97% 98% Weight: 97.5 kg (215 lb) Height: 1.6 m (5' 3) Diagnoses as of 09/27/22 0448 Hypomagnesemia Diarrhea, unspecified type Weakness Medications magnesium sulfate IVPB 4,000 mg (4,000 mg IntraVENous New Bag 09/27/22 0245) calcium gluconate 2000 mg in 100 mL IVPB premix (has no administration in time range) Followed by calcium gluconate 1000 mg in 100 mL IVPB premix (has no administration in time range) sodium chloride 0.9 % bolus 1,000 mL (0 mL IntraVENous Stopped 09/27/22 0238) ondansetron (Zofran) injection 4 mg (4 mg IntraVENous Given 09/27/22 0157) calcium gluconate 1000 mg in 100 mL IVPB premix (1,000 mg IntraVENous Given 09/27/22 0244) MDM: Mildly hypertensive on presentation to the emergency department, remainder vital signs are within normal limits. Minimally tender in epigastrium on abdominal examination, no guarding or rigidity. Differential includes viral gastroenteritis, bacterial diarrhea, colitis, electrolyte abnormalities, BIN. Clinically patient does appear to be dry on examination, given 1 L fluid bolus, medicated with IV Zofran. Work-up is demonstrating no evidence of leukocytosis, anemia appears to be within patient's baseline.Patient has profound electrolyte abnormalities, including magnesium of less than 0.2, ionized calcium of 3.6. Renal dysfunction appears to be at or near to patient's baseline. Lactic acid negative. CT abdomen/pelvis without contrast is demonstrating no acute abnormality. Suspect severe hypomagnesemia in part secondary to medication noncompliance and GI losses. Patient was given 4 g magnesium sulfate, 1 g calcium gluconate. EKG was subsequently obtained to evaluate for cardiac dysrhythmia in setting of profound hypomagnesemia, no evidence of GA, QRS or QTc interval abnormalities, no evidence of ventricular dysrhythmias on architect. Given profound electrolyte abnormalities was discussed with ICU, who were down to see, evaluate and admitted patient for further management. CRITICAL CARE TIME Total Critical Care time was 34 minutes, excluding separately reportable procedures. There was a high probability of clinically significant/life threatening deterioration in the patient's condition which required my urgent intervention. CONSULTS: None PROCEDURES: Unless otherwise noted below, none Procedures FINAL IMPRESSION 1. Hypomagnesemia 2. Diarrhea, unspecified type 3. Weakness DISPOSITION Admit 09/27/2022 03:19:43 AM PATIENT REFERRED TO: No follow-up provider specified. DISCHARGE MEDICATIONS: New Prescriptions No medications on file (Comment: Please note this report has been produced using speech recognition software and may contain errors related to that system including errors in grammar, punctuation, and spelling, as well as words and phrases that may be inappropriate. If there are any questions or concerns please feel free to contact the dictating provider for clarification.) Iman Argueta DO (electronically signed) Emergency Medicine Provider Iman Argueta DO 09/27/22 0448 Pt presented to ED with complaints of nausea, vomiting, diarrhea, shakiness and generalized weakness. Pt states she has been sick for about a week and is not getting better. Pt is unable to keep food or drink down. Pt has had a fever and chills as well. Bed: 13 Expected date: 09/27/22 Expected time: Means of arrival: Comments: Triage B Jessi Thurman RN 09/27/22 0156 documented in this encounter [facility] 09-27-2022 Emergency department Note Bed: 13 Expected date: 09/27/22 Expected time: Means of arrival: Comments: Triage B Jessi Thurman RN 09/27/22 0156 [facility] 09-27-2022 Emergency department Triage note Pt presented to ED with complaints of nausea, vomiting, diarrhea, shakiness and generalized weakness. Pt states she has been sick for about a week and is not getting better. Pt is unable to keep food or drink down. Pt has had a fever and chills as well. [facility] 06-05-2023 Physician Emergency department Note EMERGENCY DEPARTMENT ENCOUNTER Pt Name: Catarina Boyer Birthdate 1960 Date of evaluation: 09/27/2022 ED Provider: Iman Argueta DO CHIEF COMPLAINT Chief Complaint Patient presents with Weakness, Gen HISTORY OF PRESENT ILLNESS (Location/Symptom, Timing/Onset, Context/Setting, Quality, Duration, Modifying Factors, Severity) Note limiting factors. I wore appropriate PPE for the entirety of this encounter. HPI Catarina Boyer is a 62 y.o. female who presents to the emergency department with chief complaint of nausea, emesis, diarrhea. Patient reports nausea, dry heaves, emesis, diarrhea, abdominal cramping for the past week. Patient reports progressive fatigue, dyspnea, chills, tremors. Patient reports abdominal cramping is epigastric in nature, denies any radiation of her pain. Patient reports she has been unable to keep anything down by mouth. Patient reports frequent loose bowel movements, without hematochezia or melena. Patient denies any known sick contacts at home, has been off of work on vacation for the past week. Patient denies any travel. Denies any dysuria, urinary frequency, urinary urgency, hematochezia or melena. Patient reports history of hypomagnesemia, however has been unable to keep down any of her magnesium supplementation this week. Reports she has been unable to keep down her blood pressure medications other chronic medications either. Nursing Notes were reviewed. Limitations to history: None Outside historians: None REVIEW OF SYSTEMS Review of Systems PAST MEDICAL HISTORY Past Medical History: Diagnosis Date CKD (chronic kidney disease) stage 4, GFR 15-29 ml/min ([facility]) Follows with Dr. Moreno Focal segmental glomerulosclerosis GERD (gastroesophageal reflux disease) Hyperlipidemia Hypertension Hypomagnesemia Hypothyroidism SURGICAL HISTORY Past Surgical History: Procedure Laterality Date CHOLECYSTECTOMY 01/20/2022 HYSTERECTOMY KNEE CARTILAGE SURGERY Right LAPAROSCOPY DIAGNOSTIC / BIOPSY / ASPIRATION / LYSIS 01/20/2022 cholecystectomy CURRENT MEDICATIONS Previous Medications ONDANSETRON (ZOFRAN) 4 MG TABLET TAKE 1 TABLET BY MOUTH DAILY NEEDED FOR NAUSEA OR VOMITING POLYETHYLENE GLYCOL, PEG, 3350 (GLYCOLAX) 17 GM/SCOOP POWDER TAKE 17 G BY MOUTH DAILY NEEDED (CONSTIPATION) ALLERGIES Codeine, Moxifloxacin, Penicillins, Hydromorphone, Morphine, and Oxycodone-acetaminophen FAMILY HISTORY Family History Problem Relation Name Age of Onset Heart disease Mother Diabetes Father SOCIAL HISTORY Social History Socioeconomic History Marital status: Tobacco Use Smoking status: Every Day Packs/day: 0.50 Years: 40.00 Pack years: 20.00 Types: Cigarettes Smokeless tobacco: Never Vaping Use Vaping Use: Never used Substance and Sexual Activity Alcohol use: No Drug use: Never SCREENINGS PHYSICAL EXAM ED Triage Vitals [09/27/22 0030] Temp Heart Rate Resp BP 36.7 C (98 F) 85 16 (!) 149/95 SpO2 Temp Source Heart Rate Source Patient Position 97 % Temporal Monitor -- BP Location FiO2 (%) -- -- GENERAL APPEARANCE: Awake and alert. Cooperative. Appears unwell. HEAD: Normocephalic. Atraumatic. EYES: EOM's grossly intact. Sclera anicteric. ENT: Mucous membranes are tacky. Tolerates saliva. No trismus. NECK: Supple. No meningismus. Trachea midline. HEART: RRR. Radial pulses 2+. LUNGS: Respirations unlabored. CTAB ABDOMEN: Soft. Minimally tender to palpation in epigastrium without guarding, rigidity or rebound. EXTREMITIES: No acute deformities. SKIN: Warm and dry. NEUROLOGICAL: No gross facial drooping. Moves all 4 extremities spontaneously. DTRs appropriate. Muscular strength 5/5 all extremities. PSYCHIATRIC: Normal mood. DIAGNOSTIC RESULTS Procedures/EKG: EKG was reviewed by myself. Physician EKG interpretation can be found in [facility] RADIOLOGY (Per Emergency Physician): Interpretation per the Radiologist below, if available at the time of this note: CT abdomen pelvis wo IV contrast Final Result 1. No acute abnormality identified. 2. Stable renal lesions hyperdense foci, likely hemorrhagic cysts. 3. Sigmoid diverticulosis. Report Dictated on Electronically Signed By: Vijay Luo Electronically Signed Date/Time: 09/27/2022 1:52 AM EDT ED BEDSIDE ULTRASOUND: Performed by ED Physician - none LABS: Labs Reviewed CBC (HEMOGRAM) - Abnormal Result Value Auto WBC 10.2 RBC 3.96 Hemoglobin 10.8 (*) Hematocrit 33.1 (*) MCV 83.4 MCH 27.3 MCHC 32.7 RDW 14.0 Platelets 348 MPV 9.5 COMPREHENSIVE METABOLIC PANEL - Abnormal SODIUM 138 POTASSIUM 4.3 CHLORIDE 110 (*) CARBON DIOXIDE 17 (*) ANION GAP 12 UREA NITROGEN 27 (*) CREATININE 2.53 (*) GLUCOSE 114 (*) CALCIUM 7.2 (*) AST (SGOT) 18 ALT 10 ALKALINE PHOSPHATASE 95 ALBUMIN 4.6 BILIRUBIN, TOTAL 0.5 TOTAL PROTEIN 7.6 eGFR 21.2 (*) CALCIUM, IONIZED - Abnormal Calcium, Ion 3.60 (*) PH, IONIZED CALCIUM 7.33 MAGNESIUM - Abnormal MAGNESIUM <0.2 (*) SARS-COV-2, FLU A/B, AND RSV COMBO - Normal SARS-CoV-2 Not Detected Respiratory Syncytial Virus Not Detected Influenza A Not Detected Influenza B Not Detected Narrative: Methodology: real-time, RT-PCR The SARS-CoV-2, Flu A/B, and RSV Combo assay is intended for in vitro diagnostic use under the FDA Emergency Use Authorization (EUA). This test has not been FDA cleared or approved. In compliance with this authorization, please visit www.fda.gov/media/575405/download or www.fda.gov/media/292602/download to access the applicable information sheets. LIPASE - Normal LIPASE 186 LACTIC ACID, SEPSIS WITH REFLEX IF ELEVATED - Normal LACTIC ACID 0.8 THYROID STIMULATING HORMONE - Normal THYROID STIMULATING HORMONE 1.965 PHOSPHORUS - Normal PHOSPHORUS 4.3 GASTROINTESTINAL PCR PANEL SARS-COV-2 AND RESPIRATORY PCR PANEL CBC WITH AUTO DIFFERENTIAL HEPATITIS PANEL, ACUTE All other labs were within normal range or not returned as of this dictation. EMERGENCY DEPARTMENT COURSE and DIFFERENTIAL DIAGNOSIS/MDM: Vitals: Vitals: 09/27/22 0030 09/27/22 0036 09/27/22 0248 BP: (!) 149/95 108/83 Pulse: 85 66 Resp: 16 18 Temp: 36.7 C (98 F) TempSrc: Temporal SpO2: 97% 98% Weight: 97.5 kg (215 lb) Height: 1.6 m (5' 3) Diagnoses as of 09/27/22 0448 Hypomagnesemia Diarrhea, unspecified type Weakness Medications magnesium sulfate IVPB 4,000 mg (4,000 mg IntraVENous New Bag 09/27/22 024) calcium gluconate 2000 mg in 100 mL IVPB premix (has no administration in time range) Followed by calcium gluconate 1000 mg in 100 mL IVPB premix (has no administration in time range) sodium chloride 0.9 % bolus 1,000 mL (0 mL IntraVENous Stopped 09/27/22 0238) ondansetron (Zofran) injection 4 mg (4 mg IntraVENous Given 09/27/22 0157) calcium gluconate 1000 mg in 100 mL IVPB premix (1,000 mg IntraVENous Given 09/27/22 0244) MDM: Mildly hypertensive on presentation to the emergency department, remainder vital signs are within normal limits. Minimally tender in epigastrium on abdominal examination, no guarding or rigidity. Differential includes viral gastroenteritis, bacterial diarrhea, colitis, electrolyte abnormalities, BIN. Clinically patient does appear to be dry on examination, given 1 L fluid bolus, medicated with IV Zofran. Work-up is demonstrating no evidence of leukocytosis, anemia appears to be within patient's baseline.Patient has profound electrolyte abnormalities, including magnesium of less than 0.2, ionized calcium of 3.6. Renal dysfunction appears to be at or near to patient's baseline. Lactic acid negative. CT abdomen/pelvis without contrast is demonstrating no acute abnormality. Suspect severe hypomagnesemia in part secondary to medication noncompliance and GI losses. Patient was given 4 g magnesium sulfate, 1 g calcium gluconate. EKG was subsequently obtained to evaluate for cardiac dysrhythmia in setting of profound hypomagnesemia, no evidence of GA, QRS or QTc interval abnormalities, no evidence of ventricular dysrhythmias on architect. Given profound electrolyte abnormalities was discussed with ICU, who were down to see, evaluate and admitted patient for further management. CRITICAL CARE TIME Total Critical Care time was 34 minutes, excluding separately reportable procedures. There was a high probability of clinically significant/life threatening deterioration in the patient's condition which required my urgent intervention. CONSULTS: None PROCEDURES: Unless otherwise noted below, none Procedures FINAL IMPRESSION 1. Hypomagnesemia 2. Diarrhea, unspecified type 3. Weakness DISPOSITION Admit 09/27/2022 03:19:43 AM PATIENT REFERRED TO: No follow-up provider specified. DISCHARGE MEDICATIONS: New Prescriptions No medications on file (Comment: Please note this report has been produced using speech recognition software and may contain errors related to that system including errors in grammar, punctuation, and spelling, as well as words and phrases that may be inappropriate. If there are any questions or concerns please feel free to contact the dictating provider for clarification.) Iman Argueta DO (electronically signed) Emergency Medicine Provider Iman Argueta DO 09/27/22 0448 [facility] 03-03-2022 Miscellaneous Notes Letter was sent to call the kidney transplant office on 06/26/21. Unable to reach the pt via phone at 1:10pm on 03/03/22. A review of Care Everywhere reveals that the pt continues to smoke. Will send a letter to the pt regarding removal from the transplant list for inability to reach the pt. RENY Reyna, RN, [facility] Kidney Stone Unloader VCA (Uterus, Face, Hand) Stone Unloader documented in this encounter [facility] 01-20-2022 Hospital Discharge instructions Tye Sanon MD - 01/20/2022 12:34 PM EDT Images from the original note were not included. Discharge Instructions Call your surgeon in 1 to 2 days to schedule a follow-up appointment in 1-2 weeks. OK to shower. OK for activity as tolerated. No lifting over 10 pounds. Wound Care: keep wound clean and dry, reinforce dressing PRN and ice to area for comfort. If you have steri-strips, you may remove them 5 days after your surgery. If your steri-strips fall off sooner, you may leave them off. No driving while taking narcotic/sedating medications. You may take an over the counter stool softener while on narcotics for constipation as needed (colace, miralax, etc). Continue your diet as currently ordered. Call your Physician or return to the Emergency Room if you experience: -New or increased pain. -New or increased bleeding. -Nausea & vomitting. -Fever & chills. -Shortness of breath. -Chest pain. -Abdominal distention. Post-Operative Pain Reduction Strategy to Minimize Opioid Use Please take acetaminophen (Tylenol) and/or NSAIDS (Advil, Motrin) for postoperative pain control before taking opioid prescriptions for pain. You can alternate between the two or stagger them to achieve a more durable pain control regimen. -Do not exceed more than 4g of acetaminophen within 24 hours -Do not exceed more than 3200 mg NSAIDs in 24 hours -Do not take NSAIDs or acetaminophen if you have any contraindications to them. If your pain is not controlled by acetaminophen and/or NSAIDS, please take your opioid prescription ([place]/vicodin/percocet have tylenol in them) as needed for pain relief and try to use the minimum amount necessary for adequate pain relief. Opioid narcotics can suppress your respiratory drive and decrease your level of alertness. It can also cause your bowel function to slow down and potentially make you constipated. -Do not drive or operate heavy machinery while on narcotic medications. -You can take Colace or MiraLAX over the counter as needed for constipation. Please properly dispose your excess opioid medications at the appropriate facility/location. An EXAMPLE schedule of how to take these medications is below. It is not necessary to wake yourself from sleep to take pain medication. 6am: 1000 mg tylenol and 1-2 oxycodone (5mg) tablets if needed 9am: 800 mg ibuprofen 12pm: 1000 mg tylenol and 1-2 oxycodone (5mg) tablets if needed 3pm: 800 mg ibuprofen 6pm: 1000 mg tylenol and 1-2 oxycodone (5mg) tablets if needed 9pm: 800 mg ibuprofen 12am: 1000 mg tylenol and 1-2 oxycodone (5mg) tablets if needed 3am: 800 mg ibuprofen 6am: 1000 mg tylenol and 1-2 oxycodone (5mg) tablets if needed documented in this encounter [facility] Work Phone: 01-13-2022 Hospital Discharge instructions Carline Busby RN - 01/13/2022 1:53 PM EDT TAKE the following medications the morning of your surgery levothyroxine, omeprazole You may take your prescription pain medication. You may take Tylenol for pain. NO Motrin, ibuprofen or Advil for 24 hours prior to surgery or longer if instructed by your surgeon. NO Aleve or Naprosyn for 3 days prior to surgery or longer if instructed by your surgeon. IF YOU TAKE BLOOD THINNERS OR ASPIRIN: if on blood thinners tell surgeon and nurse No aspirin 5 days prior to surgery Follow any instructions given to you by Dr. Hussein Shower with an antibacterial soap such as Dial or Safeguard or shower kit provided to you before coming to the hospital. No makeup, lotion, powder, deodorant or body spays. No hair products. Remove all jewelry and leave it at home. Wear loose comfortable clothing to go home in. You may brush your teeth morning of surgery. Do not wear contacts day of surgery. No marijuana (THC), smoking or alcohol for 24 hours prior to surgery. Please arrange for a responsible adult to drive you home after your surgery and that there is a responsible adult with you for 24 hours post discharge. If you have specific questions, please call your surgeon. You will receive a call the day before your surgery to verify your arrival time and date. You will be asked to arrive at least two hours prior to your scheduled surgery time. Please bring your [facility] folder and medication list with you day of surgery. We encourage you to write down any questions you may have for the surgeon, anesthesiologist, or other members of the surgical team and bring it with you the day of surgery. Please bring photo ID and insurance information. The following attachments cannot be sent through Care Everywhere.Cholecystectomy: Pre-op (Malawian)documented in this encounter [facility] Work Phone: 07-21-2021 Note Physician Discharge Summary Patient ID: Catarina Boyer [id number] y.o. 1960 Admit date: 07/19/2021 Discharge date and time: 07/21/21 Admitting Physician: Camille Goodman MD Discharge Physician: CARYL CLARKE DO MD Admission Diagnoses: Palpitations [R00.2] Hyperkalemia [E87.5] Hypomagnesemia [E83.42] Palpitations in pediatric patient [R00.2] Discharge Diagnoses: same Admission Condition: stable Discharged Condition: stable Indication for Admission: electrolyte abnormalities Hospital Course: pt admitted with hypomagnesemia and hyperkalemia. She had recently been placed on veltassa by dr moreno but didn't tolerate it. She had her mag replaced and received kayexalate while here. Her chest pain was worked up and is non cardiac echo normal. She will go home on mag replacement and kayexalate daily and repeat labs on tuesday Consults: cardiology and neurology Significant Diagnostic Studies: labs: Treatments: as above Discharge Exam: BP (!) 143/85 Pulse 67 Temp 98.1 ?F (36.7 ?C) (Temporal) Resp 20 Ht 5' 3 (1.6 m) Wt 225 lb (102.1 kg) SpO2 97% BMI 39.86 kg/m? General appearance: alert, appears stated age and cooperative Lungs: clear to auscultation bilaterally Heart: regular rate and rhythm, S1, S2 normal, no murmur, click, rub or gallop Abdomen: soft, non-tender; bowel sounds normal; no masses, no organomegaly Extremities: extremities normal, atraumatic, no cyanosis or edema Disposition: home Patient Instructions: @MEDDISCHARGE@ Activity: activity as tolerated Diet: cardiac diet Wound Care: none needed and none Follow-up with dr goodman one week repeat labs on tuesday. Signed: CARYL CLARKE DO 07/21/2021 1:29 PM [facility] 07-21-2021 Hospital course Narrative Physician Discharge Summary Patient ID: Catarina Boyer [id number] y.o. 1960 Admit date: 07/19/2021 Discharge date and time: 07/21/21 Admitting Physician: Camille Goodman MD Discharge Physician: CARYL CLARKE DO MD Admission Diagnoses: Palpitations [R00.2] Hyperkalemia [E87.5] Hypomagnesemia [E83.42] Palpitations in pediatric patient [R00.2] Discharge Diagnoses: same Admission Condition: stable Discharged Condition: stable Indication for Admission: electrolyte abnormalities Hospital Course: pt admitted with hypomagnesemia and hyperkalemia. She had recently been placed on veltassa by dr moreno but didn't tolerate it. She had her mag replaced and received kayexalate while here. Her chest pain was worked up and is non cardiac echo normal. She will go home on mag replacement and kayexalate daily and repeat labs on tuesday Consults: cardiology and neurology Significant Diagnostic Studies: labs: Treatments: as above Discharge Exam: BP (!) 143/85 Pulse 67 Temp 98.1 F (36.7 C) (Temporal) Resp 20 Ht 5' 3 (1.6 m) Wt 225 lb (102.1 kg) SpO2 97% BMI 39.86 kg/m General appearance: alert, appears stated age and cooperative Lungs: clear to auscultation bilaterally Heart: regular rate and rhythm, S1, S2 normal, no murmur, click, rub or gallop Abdomen: soft, non-tender; bowel sounds normal; no masses, no organomegaly Extremities: extremities normal, atraumatic, no cyanosis or edema Disposition: home Patient Instructions: @MEDDISCHARGE@ Activity: activity as tolerated Diet: cardiac diet Wound Care: none needed and none Follow-up with dr goodman one week repeat labs on tuesday. Signed: CARYL CLARKE DO 07/21/2021 1:29 PM documented in this encounter [facility] Work Phone: 07-21-2021 History of Present illness Narrative Progress Note Date:07/21/2021 Room:[address] [place] [address] Patient Name:Catarina Boyer Date of :1960 Age:61 y.o. Subjective Subjective: Symptoms: Stable. Diet: Adequate intake. Activity level: Impaired due to weakness. Pain: She reports no pain. Review of Systems Musculoskeletal: Positive for arthralgias and myalgias. Objective Vitals Last 24 Hours: TEMPERATURE: Temp Av.6 F (36.4 C) Min: 97.3 F (36.3 C) Max: 98 F (36.7 C) RESPIRATIONS RANGE: Resp Av Min: 16 Max: 20 PULSE OXIMETRY RANGE: SpO2 Av.8 % Min: 90 % Max: 100 % PULSE RANGE: Pulse Av.6 Min: 65 Max: 85 BLOOD PRESSURE RANGE: Systolic (24hrs), Av , Min:114 , Max:137 ; Diastolic (24hrs), Av, Min:59, Max:86 I/O (24Hr): No intake or output data in the 24 hours ending 07/21/21 1136 Scheduled Meds: [START ON 07/22/2021] losartan 50 mg Oral Daily magnesium oxide 800 mg Oral BID [START ON 07/22/2021] amLODIPine 10 mg Oral Daily levothyroxine 50 mcg Oral Daily enoxaparin 40 mg SubCUTAneous Daily pantoprazole 40 mg Oral QAM AC Continuous Infusions: PRN Meds:.acetaminophen, perflutren lipid microspheres, sodium chloride flush Objective: General Appearance: Comfortable and well-appearing. Vital signs: (most recent): Blood pressure 126/73, pulse 79, temperature 97.5 F (36.4 C), temperature source Temporal, resp. rate 18, height 5' 3 (1.6 m), weight 225 lb (102.1 kg), SpO2 96 %. Vital signs are normal. Output: Producing urine. HEENT: Normal HEENT exam. Lungs: Normal effort and normal respiratory rate. Breath sounds clear to auscultation. Heart: Normal rate. Regular rhythm. S1 normal and S2 normal. Positive for murmur and gallop. Abdomen: Abdomen is soft. Bowel sounds are normal. There is no abdominal tenderness. There is no mass. Extremities: Decreased range of motion. Pulses: Distal pulses are intact. Neurological: Patient is alert and oriented to person, place and time. Pupils: Pupils are equal, round, and reactive to light. Skin: Warm and dry. Labs/Imaging/Diagnostics Labs: CBC:Recent Labs 07/20/21 0025 07/20/21 0515 07/21/212 WBC 7.8 7.5 7.5 RBC 3.65* 3.44* 3.49* HGB 10.4* 9.9* 10.0* HCT 30.9* 29.6* 30.2* MCV 84.6 86.0 86.7 RDW 14.0 14.1 14.1 PLT 313 293 286 CHEMISTRIES: Recent Labs 07/20/21 0025 07/20/21 0515 07/21/21 0442 NA 136 134* 134* K 6.0* 5.2* 5.5* CL 110* 109* 107 CO2 21* 19* 19* BUN 24* 22* 24* CREATININE 2.10* 2.11* 2.27* GLUCOSE 97 98 94 MG 1.0* 1.6 1.4* PT/INR:No results for input(s): PROTIME, INR in the last 72 hours. APTT:No results for input(s): APTT in the last 72 hours. LIVER PROFILE: Recent Labs 07/20/21 0515 07/21/21 0442 AST 16 16 ALT 10 9 BILITOT 0.4 0.4 ALKPHOS 101 101 Imaging Last 24 Hours: XR CHEST (2 VW) Result Date: 07/20/2021 Patient Name: CATARINA BOYER Diagnostic Radiology ACCESSION EXAM DATE/TIME PROCEDURE ORDERING PROVIDER [id number] 07/20/2021 01:03 EDT CR Chest PA & LAT [id number] -TOM NUNES CPT code 82644 Reason For Exam (CR Chest PA & LAT) palpitations Report CHEST SINGLE VIEW CLINICAL INFORMATION: Palpitations A frontal view of the chest was obtained. No acute pulmonary disease is noted. The cardiovascular silhouette is within normal limits with calcified plaquing aorta. IMPRESSION: No acute pulmonary disease. Unchanged since 2018 exam Report Dictated on --- Final --- Dictating Physician: MD KELLY WILLIAM Signed Date and Time: 07/20/2021 1:31 am Signed by: MD KELLY WILLIAM Transcribed Date and Time: 07/20/2021 1:32 Assessment//Plan Assessment: Condition: In stable condition. Improving. (Active Problems: Hypertension>>Better. Decrease ARB & increase CCB >>>Meds Focal segmental glomerulosclerosis & Hyperkalemia & CKD>>>Nephrology consult?? COPD (chronic obstructive pulmonary disease) (HCC)>>>Meds GERD (gastroesophageal reflux disease)>>>Meds Thyroid disease>>>Meds). Plan: Start/continue incentive spirometry and continue respiratory treatments. Restricted diet and advance diet as tolerated. X-rays as ordered. Administer medications as ordered. (Specialty Problems Cardiology Problems Hyperlipidemia >>>Meds Hypertension>>Better. Decrease ARB & increase CCB >>>Meds Reevaluate). I personally obtained the arias and critical portions of the history and physical exam. I reviewed the labs, imaging studies, and electronic medical record. I reviewed the chart documentation, and discussed the patient with treatment team members. I have edited the note to reflect my clinical findings and my assessment and plan. Please note, the time of this note does not reflect the time I saw this patient today, but the time of this documentation. SIGNATURE: Pradeep Minaya MD; FACC; FHRS; FASNC; CCDS. PATIENT NAME: Catarina Boyer DATE: 07/21/2021 PAGER: [phone] Full note to follow. Patient is known to Dr Moreno. Was started on veltassa during last visit. K remains high. Add kayexalate today. Cut back losartan. Nutrition rescreen completed. Patient assigned a level 1. documented in this encounter [facility] Work Phone: Evaluation + Plan note No data available for this section 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 COPD (chronic obstructive pulmonary disease) (HCC) Chronic airway obstruction, not elsewhere classified GERD (gastroesophageal reflux disease) Esophageal reflux Thyroid disease Unspecified disorder of thyroid Acute kidney injury (HCC) Acute kidney failure, unspecified documented in this encounter [facility] Work Phone: Evaluation note* Diagnosis Abdominal pain, epigastric- Primary documented in this encounter [facility] Work Phone: Evaluation note* Diagnosis Post-op pain- Primary Other acute postoperative pain Calculus of gallbladder with chronic cholecystitis without obstruction Calculus of gallbladder with other cholecystitis, without mention of obstruction documented in this encounter [facility] Work Phone: Evaluation note* Diagnosis Hypomagnesemia- Primary Disorders of magnesium metabolism Hypomagnesemia Disorders of magnesium metabolism Diarrhea, unspecified type Weakness Other malaise and fatigue Severe malnutrition (CMS/HCC) (HCC) Nutritional marasmus documented in this encounter [facility] note* Diagnosis Abnormal levels of other serum enzymes documented in this encounter [facility] note* Diagnosis Abnormal levels of other serum enzymes- Primary Abnormal levels of other serum enzymes documented in this encounter [facility] note* Diagnosis Chronic kidney disease, stage 4 (severe) (HCC) 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 Secondary hyperparathyroidism of renal origin (HCC) Secondary hyperparathyroidism (of renal origin) documented in this encounter [facility] note* Diagnosis Stage 5 chronic kidney disease not on chronic dialysis (HCC)- Primary documented in this encounter [facility] note* Diagnosis Hyperkalemia Hyperpotassemia documented in this encounter [facility] Discharge instructions* Attachments The following attachments cannot be sent through Care Everywhere. * Abdominal Pain (Malawian) [facility]: Summary Purpose Family History No Family History Records FoundNo Family History Records FoundNo Family History Records FoundNo Family History Records FoundNo Family History Records Found No data available for this section No Family History Records FoundNo Family History Records FoundNo Family History Records FoundNo Family History Records Found Advance Directives No Advanced Directives Records FoundDocuments on File Type Date Recorded Patient Core Inserter Expl anation Advance Directives and Living Will Power of Guide [place]ion Documents on File Type Date Recorded Patient Core Inserter Expl anation ACP-Advance Directive ACP-Power of Guide [place] Latest Code Status on File Code Status Date Activated Date Inactivated Comments Full Code 07/20/2021 3:05 AM Documents on File Type Date Recorded Patient Core Inserter Expl anation ACP-Advance Directive ACP-Power of Guide [place] Latest Code Status on File Code Status Date Activated Date Inactivated Comments Full Code 07/20/2021 3:05 AM 07/21/2021 4:23 PM Latest Code Status on File Code Status Date Activated Date Inactivated Comments Full Code 07/20/2021 3:05 AM 07/21/2021 4:23 PM Latest Code Status on File Code Status Date Activated Date Inactivated Comments Full Code 01/20/2022 10:47 AM Full Code 07/20/2021 3:05 AM 07/21/2021 4:23 PM Latest Code Status on File Code Status Date Activated Date Inactivated Comments Full Code 09/27/2022 6:33 AM 09/29/2022 6:35 PM Hospital Course * Caryl Clarke DO - 12/12/2018 12:40 PM EDT Physician Discharge Summary Patient ID: Catarina Boyer [id number] y.o. 1960 Admit date: 12/10/2018 Discharge date and time: 12/12/18 Admitting Physician: Caryl Clarke DO Discharge Physician: CARYL CLARKE MD Admission Diagnoses: Acute diverticulitis [K57.92] Acute diverticulitis [K57.92] Discharge Diagnoses: same CKD stage 5 Admission Condition: stable Discharged Condition: stable Indication for Admission: LLQ pain Hospital Course: pt admitted with acute diverticulitis and failed outpatient treatment. She was started on rocephin and flagyl due to her drug allergies. She did well overnight and her pain was improving she was tolerating full liquids so I advanced her to a renal diet. She is going home on po omnicef and flagyl and will follow up with dr goodman Consults: none Significant Diagnostic Studies: labs: Treatments: as above Discharge Exam: BP 131/73 Pulse 59 Temp 97.1 F (36.2 C) (Temporal) Resp 20 Ht 5' 3 (1.6 m) Wt 209 lb (94.8 kg) SpO2 97% BMI 37.02 kg/m General Appearance: Alert, cooperative, no distress, appears stated age Head: Normocephalic, without obvious abnormality, atraumatic Eyes: PERRL, conjunctiva/corneas clear, EOM's intact, fundi benign, both eyes Ears: Normal TM's and external ear canals, both ears Nose: Nares normal, septum midline, mucosa normal, no drainage or sinus tenderness Throat: Lips, mucosa, and tongue normal; teeth and gums normal Neck: Supple, symmetrical, trachea midline, no adenopathy; thyroid: no enlargement/tenderness/nodules; no carotid bruit or JVD Back: Symmetric, no curvature, ROM normal, no CVA tenderness Lungs: Clear to auscultation bilaterally, respirations unlabored Chest Wall: No tenderness or deformity Heart: Regular rate and rhythm, S1 and S2 normal, no murmur, rub or gallop Breast Exam: No tenderness, masses, or nipple abnormality Abdomen: Soft, non-tender, bowel sounds active all four quadrants, no masses, no organomegaly Genitalia: Normal female without lesion, discharge or tenderness Rectal: Normal tone ;guaiac negative stool Extremities: Extremities normal, atraumatic, no cyanosis or edema Pulses: 2+ and symmetric all extremities Skin: Skin color, texture, turgor normal, no rashes or lesions Lymph nodes: Cervical, supraclavicular, and axillary nodes normal Neurologic: CNII-XII intact, normal strength, sensation and reflexes throughout Disposition: home Patient Instructions: @MEDDISCHARGE@ Activity: activity as tolerated Diet: renal diet Wound Care: none needed Follow-up with Dr Goodman in one week Signed: CARYL CLARKE 12/12/2018 12:40 PM documented in this encounter Discharge Instructions * Attachments The following attachments cannot be sent through Care Everywhere. * Diverticulitis (Malawian) documented in this encounter History of Present Illness * Mouna Dick - 12/12/2018 8:08 AM EDT Nutrition rescreen completed. Patient referred to the Dietitian. * Rosalba Villafana RN - 12/11/2018 1:[address] Clarke, hospitalist consult is to be cancelled. Pt will be on; Ziyad Clarke and Dominic. * Rosalba Villafana RN - 12/11/2018 12:10 AM EDT Pt arrived to unit, 1E at 2343, pt arrived by stretcher, pt is alert and oriented. documented in this encounter Assessments Diagnosis Acute diverticulitis- Primary Failure of outpatient treatment Reason for Referral Specialty Diagnoses / Procedures Referred By Tammi pulliam Referred To Contact General Surgery Diagnoses Abdominal pain, epigastric Angel Ch MD [address] [place] [address] Giovanny Stoney, DO [address], [address] [place] [address] Referral ID Status Reason Start Date Expiration Date V isits Requested Visits Authorized [id number] Open Specialty Services Required 10/01/2021 10/01/2022 1 1 Scheduling Instructions [facility] - Stoney Baltazar, DO [address] [place] [address] Additional Source Comments INFORMATION SOURCE (unrecogn ized section and content) DATE CREATED AUTHOR 12/09/2018 [facility] DATE CREATED AUTHOR AUTHOR'S ORGANIZ ATION 06/08/[address] [facility] DATE CREATED AUTHOR AUTHOR'S ORGANIZ ATION 12/18/2021 [facility] DATE CREATED AUTHOR AUTHOR'S ORGANIZ ATION 01/26/2022 [facility] DATE CREATED AUTHOR AUTHOR'S ORGANIZ ATION 06/25/2023 [facility] DATE CREATED AUTHOR AUTHOR'S ORGANIZ ATION 12/02/2023 [facility] ([place] DATE CREATED AUTHOR AUTHOR'S ORGANIZ ATION 02/25/2024 [facility] DATE CREATED AUTHOR AUTHOR'S ORGANIZ ATION 12/27/2024 [facility] DATE CREATED AUTHOR AUTHOR'S ORGANIZ ATION 01/14/2025 [facility] Reason for Visit (unrecogniz ed section and content) Reason Comments Emesis Reason Comments Chest Pain Reason Comments Abdominal Pain upper abdominal pain , +N/D/fever Reason Comments Follow Up Reason Comments Weakness, Gen Specialty Diagnoses / Procedures Referred By Tammi t Referred To Contact Diagnoses Hypomagnesemia Weakness Diarrhea, unspecified type Procedures E83.42 Angel Hernandez, DO [address] [place] [address], [address] [place] [address] [facility] [address] [place] [address] Referral ID Status Reason Start Date Expiration Date Visits Re quested Visits Authorized [id number] 1 1 Reason Comments New Patient PD Cath consult Ordered Prescriptions (unrec ognized section and content) Prescription Sig Dispensed Refills Start Date End Da te sodium polystyrene (KAYEXALATE) 15 GM/60ML suspension Take 60 mLs by mouth daily 240 mL 3 07/21/2021 magnesium oxide (MAG-OX) 400 (241.3 Mg) MG TABS tablet Take 2 tablets by mouth 2 times daily 60 tablet 3 07/21/2021 losartan (COZAAR) 50 MG tablet Take 1 tablet by mouth daily 30 tablet 3 07/22/2021 amLODIPine (NORVASC) 10 MG tablet Take 1 tablet by mouth daily 30 tablet 3 07/22/2021 Prescription Sig Dispensed Refills Start Date End Da te dicyclomine (BENTYL) 10 MG capsule Take 2 capsules by mouth every 6 hours as needed (cramps) 20 capsule 0 10/01/2021 Prescription Sig Dispensed Refills Start Date End Da te traMADol (ULTRAM) 50 MG tabletIndications:Post-o p pain Take 1 tablet by mouth every 6 hours as needed for Pain for up to 5 days. Intended supply: 7 days. Take lowest dose possible to manage pain 20 tablet 0 01/20/2022 01/25/2022 polyethylene glycol (GLYCOLAX) 17 GM/SCOOP powder Take 17 g by mouth daily as needed (Constipation) 1530 g 0 01/20/2022 02/19/2022 ondansetron (ZOFRAN) 4 MG tablet Take 1 tablet by mouth daily as needed for Nausea or Vomiting 10 tablet 0 01/20/2022 oxyCODONE-acetaminophen (PERCOCET) 5-325 MG per tabletIndications:Post-o p pain Take 1 tablet by mouth every 6 hours as needed for Pain for up to 3 days. Intended supply: 3 days. Take lowest dose possible to manage pain 12 tablet 0 01/20/2022 01/20/2022 Scheduled Active and Recently Administ ered Medications (unrecognized section and content) Medication Order 07/19/2021 07/20/2021 07/21/2021 amLODIPine (NORVASC) tablet 10 mg 10 mg, Oral, DAILY, First dose (after last modification) on Tue07/22/21 at 0900, Until Discontinued amLODIPine (NORVASC) tablet 5 mg (CANCELED) 5 mg, Oral, DAILY, First dose on Tue07/20/21 at 0900, Until Discontinued 1026 (Given - Provider: Courtney Kumar RN) 0821 (Given - Provider: Adina Barr RN) enoxaparin (LOVENOX) injection 40 mg 40 mg, SubCUTAneous, DAILY, First dose on Tue07/20/21 at 0900, Until Discontinued 1027 (Given - Provider: Courtney Kumar RN) 0821 (Given - Provider: Adina Barr RN) levothyroxine (SYNTHROID) tablet 50 mcg 50 mcg, Oral, DAILY, First dose on Tue07/20/21 at 0700, Until Discontinued, Tube feeding (TF) interaction, obtain physician order to manage, recommend holding TF for 30 minutes before and after dose. 1027 (Given - Provider: Courtney Kumar RN) 0638 (Given - Provider: Carolann Cordero RN) losartan (COZAAR) tablet 100 mg (CANCELED) 100 mg, Oral, DAILY, First dose on Tue07/20/21 at 0900, Until Discontinued 1026 (Given - Provider: Courtney Kumar RN) 0821 (Given - Provider: Adina Barr RN) losartan (COZAAR) tablet 50 mg 50 mg, Oral, DAILY, First dose (after last modification) on Tue07/22/21 at 0900, Until Discontinued magnesium oxide (MAG-OX) tablet 400 mg (CANCELED) 400 mg, Oral, 3 TIMES DAILY, First dose on Tue07/20/21 at 0900, Until Discontinued 1027 (Given - Provider: Courtney Kumar RN)1524 (Given - Provider: Courtney Kumar RN)2148 (Given - Provider: Carolann Cordero RN) 0821 (Given - Provider: Adina Barr RN) magnesium oxide (MAG-OX) tablet 800 mg 800 mg, Oral, 2 TIMES DAILY, First dose on Tue07/21/21 at 1115, Until Discontinued 1256 (Given - Provid er: Adina Barr RN)2100 (Due) magnesium sulfate 2000 mg in 50 mL IVPB premix (COMPLETED) 2,000 mg, IntraVENous, at 25 mL/hr, Administer over 2 Hours, ONCE, On Tue07/20/21 at 0106, For 1 dose, Recommended infusion rate not to exceed 1,000 mg (milligrams) per hour. 0110 (New Bag - Provider: Renetta Rodriguez, ALCIDES)0315 (Stopped - Provider: Neris Woodward) pantoprazole (PROTONIX) tablet 40 mg 40 mg, Oral, DAILY BEFORE BREAKFAST, First dose on Tue07/20/21 at 0700, Until Discontinued, Do not crush or break. Substituted for Omeprazole (PRILOSEC). 1027 (Given - Provider: Courtney Kumar, ALCIDES) 0638 (Given - Provider: Carolann Cordero RN) sodium polystyrene (KAYEXALATE) 15 GM/60ML suspension 15 g (COMPLETED) 15 g, Oral, ONCE, 1 dose, On Tue07/21/21 at 0945 1207 (Given - Provid er: Adina Barr RN) sodium polystyrene (KAYEXALATE) 15 GM/60ML suspension 30 g (COMPLETED) 30 g, Oral, ONCE, 1 dose, On Tue07/20/21 at 0123 0135 (Given - Provider: Renetta Rodriguez RN) PRN Medication Order 07/19/2021 07/20/2021 07/21/2021 acetaminophen (TYLENOL) tablet 650 mg 650 mg, Oral, EVERY 4 HOURS PRN, Starting on Tue07/20/21 at 0258, Until Discontinued, Pain Mild (1-3), Fever, Maximum dose of acetaminophen is 4000 mg from all sources in 24 hours. 0924 (Given - Provider: Courtney Kumar RN) 1300 (Given - Provider: Adina Barr, ALCIDES) perflutren lipid microspheres (DEFINITY) injection 1.65 mg 1.65 mg (1.5 mL), IntraVENous, IMG ONCE PRN, Starting on Tue07/20/21 at 1150, Until Damaris 07/23/21 at 1149, Other, Suboptimal Echo Image, Administer up to 1.65 mg via slow IVP for suboptimal echocardiogram enhancement. May administer as concentrated dose or diluted in 8.5 mL of 0.9% sodium chloride for a total volume of 10 mL. May administer as divided doses to reach optimal image enhancement. sodium chloride flush 0.9 % injection 5-40 mL 5-40 mL, IntraVENous, PRN, Starting on 07/20/21 at 1150, Until Damaris 07/23/21 at 1149, Line Care, Per Erp Developer Request, May use order for Line Care after every IV line use and Agitated Saline Bubble Study. Administration for Bubble Study per locker attendant request for only. Remove 1 mL 0.9% sodium chloride from 10 mL syringe for creating agitated saline. If following IV push medication, administer flush at same rate as the IV push. Flush volume is determined by type of infusion therapy being given. , For non-viscous solutions use: Peripheral IV = 5 mL Midline or Central Line = 10 mL/lumen For viscous solutions (i.e. blood components, parenteral nutrition, contrast media, or after obtaining blood sample) use: Peripheral IV = 10 mL Midline or Central Line = 20 mL/lumen Scheduled Medication Order 09/29/2021 09/30/2021 10/01/2021 ondansetron (ZOFRAN) injection 4 mg (COMPLETED) 4 mg, IntraVENous, ONCE, 1 dose, On Damaris 10/01/21 at 1514 1541 (Given - Provid er: Pavithra Andres RN) sodium chloride flush 0.9 % injection 3 mL(Linked Group 1) 3 mL, IntraVENous, EVERY 8 HOURS, First dose on Damaris 10/01/21 at 1514, Until Discontinued, Flush line with 3-5 mL 1542 (Given by Other - Provider: Pavithra Andres RN - Comment: given by medic with IV start)2314 (Due) Linked Groups Order Group 1: Saline lock IV (COMPLETED) Routine, CONTINUOUS, Starting on Damaris 10/01/21 at 1515, Until Specified And sodium chloride flush 0.9 % injection 3 mLJump to med 3 mL, IntraVENous, EVERY 8 HOURS, First dose on Damaris 10/01/21 at 1514, Until Discontinued
Flush line with 3-5 mL
Scheduled Medication Order 01/18/2022 01/19/2022 01/20/2022 acetaminophen (TYLENOL) tablet 1,000 mg (COMPLETED) 1,000 mg, Oral, ONCE, 1 dose, On 01/20/22 at 1115, Maximum dose of acetaminophen is 4000 mg from all sources in 24 hours. Do not administer if patient has taken tylenol <4 hours earlier. Do not give if contraindicated ie. patient has active liver disease or cirrhosis., Pre-op (day of surgery) 1107 (Given - Provid er: Klaudia Moore RN) ePHEDrine injection 25 mg (COMPLETED) 25 mg, IntraMUSCular, ONCE, 1 dose, On Tue01/20/22 at 1715, Post-op 1712 (Given - Provid er: Gloria Harrison RN) famotidine (PEPCID) tablet 20 mg (COMPLETED) 20 mg, Oral, ONCE, 1 dose, On Tue01/20/22 at 1115, Pre-op (day of surgery) 1107 (Given - Provid er: Klaudia Moore RN) sodium chloride flush 0.9 % injection 5-40 mL 5-40 mL, IntraVENous, EVERY 12 HOURS SCHEDULED (2 times per day), First dose on Tue01/20/22 at 1115, Until Discontinued, For Line Patency: Peripheral IV = 5 mL; Midline or Central Line = 10 mL/lumen. If following IV push medication, administer flush at same rate as the IV push. Flush volume is determined by type of infusion therapy being given. For non-viscous solutions use: Peripheral IV = 5 mL Midline or Central Line = 10 mL/lumen For viscous solutions (i.e. blood components, parenteral nutrition, contrast media, or after obtaining blood sample) use: Peripheral IV = 10 mL Midline or Central Line = 20 mL/lumen, Pre-op (day of surgery) 1115 (Due)2100 (Due) sodium chloride flush 0.9 % injection 5-40 mL 5-40 mL, IntraVENous, EVERY 12 HOURS SCHEDULED (2 times per day), First dose on Tue01/20/22 at 2100, Until Discontinued, For Line Patency: Peripheral IV = 5 mL; Midline or Central Line = 10 mL/lumen. If following IV push medication, administer flush at same rate as the IV push. Flush volume is determined by type of infusion therapy being given. For non-viscous solutions use: Peripheral IV = 5 mL Midline or Central Line = 10 mL/lumen For viscous solutions (i.e. blood components, parenteral nutrition, contrast media, or after obtaining blood sample) use: Peripheral IV = 10 mL Midline or Central Line = 20 mL/lumen, PACU only 2100 (Due) Continuous Medication Order 01/18/2022 01/19/2022 01/20/2022 lactated ringers infusion IntraVENous, at 50 mL/hr, CONTINUOUS, Starting on Tue01/20/22 at 1115, Upon admission to sameday - please start iv if patient does not have iv access. Use 500ml NS for patients on dialysis., Pre-op (day of surgery) 1118 (New Bag - Prov ider: Klaudia Moore RN) lactated ringers infusion IntraVENous, at 50 mL/hr, CONTINUOUS, Starting on Tue01/20/22 at 1415, PACU only 1415 (Due) PRN Medication Order 01/18/2022 01/19/2022 01/20/2022 0.9 % sodium chloride bolus 500 mL (4.69 mL/kg), IntraVENous, at 1,000 mL/hr, Administer over 0.5 Hours, PRN, Anti-nausea, Starting on Tue01/20/22 at 1357, PACU only 1425 (New Bag - Prov ider: Janene Collier RN)1455 (Due: Stopped - Provider: Janene Collier RN) 0.9 % sodium chloride infusion IntraVENous, at 5-250 mL/hr, PRN, if patient receiving piggyback infusions and maintenance fluids are not ordered OR KVO fluids to protect IV site / prevent frequent line interruptions/ long duration, Starting on Tue01/20/22 at 1047, For piggyback infusion, administer at same rate as piggyback for a total of 25 mL. Enter 25 mL into dose field and piggyback rate into rate field of order. If piggyback is infusing at a rate less than 100 mL/hr, enter 25 mL into dose field and 100 mL/hr into rate field of order. For KVO fluids, enter rate of 20 mL/hr or less into rate field of order., Pre-op (day of surgery) ALPRAZolam (NIRAVAM) dissolvable tablet 0.25 mg 0.25 mg, Oral, PRN, Starting on Tue01/20/22 at 1047, Until Discontinued, Anxiety, Pre-op (day of surgery) 1108 (Given - Provid er: Klaudia Moore RN) diphenhydrAMINE (BENADRYL) injection 12.5 mg 12.5 mg, IntraVENous, ONCE PRN, 1 dose, Starting on Tue01/20/22 at 1357, Until Damaris 01/21/22 at 1357, Itching, for use Sameday and, PACU only fentaNYL (SUBLIMAZE) injection 25 mcg 25 mcg, IntraVENous, EVERY 5 MIN PRN, 3 doses, Starting on Tue01/20/22 at 1357, Until Discontinued, Pain Moderate (4-6), Phase I and Phase II- Initial therapy for moderate pain (4-6). Restricted to a 90 minute time frame starting when the patient can verbally state their pain score. If after 2 doses the pain score does not decrease by more than one point, then call the provider. If oral meds are utilized, do not return to initial therapy medications. SDS and, PACU only fentaNYL (SUBLIMAZE) injection 50 mcg (COMPLETED) 50 mcg, IntraVENous, EVERY 5 MIN PRN, 3 doses, Starting on Tue01/20/22 at 1357, Until Discontinued, Pain Severe (7-10), Phase I or Phase II- Initial therapy for severe pain (7-10). Restricted to a 90 minute time frame starting when the patient can verbally state their pain score. If after 2 doses the pain score does not decrease by more than one point, then call the provider. If oral meds are utilized, do not return to initial therapy medications. SDS and, PACU only 1421 (Given - Provid er: Janene Collier RN)1442 (Given - Provider: Janene Collier RN)1514 (Given - Provider: Janene Collier RN) hydrALAZINE (APRESOLINE) injection 5 mg(Linked Group 1) 5 mg, IntraVENous, EVERY 10 MIN PRN, 2 doses, Starting on Tue01/20/22 at 1357, Until Discontinued, High Blood Pressure, PRN for SBP > 160 for 2 consecutive measurements, and if one of the following conditions is met: 1) If IV labetolol is ineffective. 2) If HR is under 60. 3) If patient has heart block, COPD or asthma. If both labetalol and hydralazine ineffective, notify anesthesiologist. for use Sameday and, PACU only labetalol (NORMODYNE;TRANDATE) injection 5 mg(Linked Group 1) 5 mg, IntraVENous, EVERY 10 MIN PRN, 2 doses, Starting on Tue01/20/22 at 1357, Until Discontinued, High Blood Pressure, PRN for SBP >160 for 2 consecutive measurements, if HR is 60 or greater. If beta sandra is contraindicated (HR less than 60, heart block, COPD or asthma) use hydralazine IV order. for use Sameday and, PACU only lidocaine 1 % injection 1 mL 1 mL, IntraDERmal, ONCE PRN, 1 dose, Starting on Tue01/20/22 at 1047, Until Damaris 01/21/22 at 1047, IV start, Pre-op (day of surgery) LORazepam (ATIVAN) injection 0.5 mg (COMPLETED) 0.5 mg, IntraVENous, ONCE PRN, 1 dose, Starting on Tue01/20/22 at 1357, Until Tue01/20/22 at 1433, for anxiety or muscle spasm., PACU only 1433 (Given - Provid er: Janene Collier RN) meperidine (DEMEROL) injection 12.5 mg 12.5 mg, IntraVENous, EVERY 5 MIN PRN, 4 doses, Starting on Tue01/20/22 at 1357, Until Discontinued, Shivering, , May give every 5 minutes to max of 50mg. for use Sameday and, PACU only ondansetron (ZOFRAN) injection 4 mg (COMPLETED) 4 mg, IntraVENous, ONCE PRN, 1 dose, Starting on Tue01/20/22 at 1357, Until Tue01/20/22 at 1424, Nausea, Initial antiemetic therapy. For use sameday and, PACU only 1424 (Given - Provid er: Janene Collier RN) oxyCODONE (ROXICODONE) immediate release tablet 10 mg(Linked Group 2) 10 mg, Oral, PRN, 1 dose, Starting on Tue01/20/22 at 1357, Until Tue01/20/22 at 2359, Pain Severe (7-10), PHASE II, PACU only 1553 (Incomplete - P rovider: Janene Collier RN) oxyCODONE (ROXICODONE) immediate release tablet 5 mg(Linked Group 2) 5 mg, Oral, PRN, 1 dose, Starting on Tue01/20/22 at 1357, Until Tue01/20/22 at 2359, Pain Moderate (4-6), PHASE II, PACU only 1553 (See Alternativ e - Provider: Janene Collier RN) sodium chloride flush 0.9 % injection 5-40 mL 5-40 mL, IntraVENous, PRN, Starting on Tue01/20/22 at 1047, Until Discontinued, Line Care, After every IV line use, For Line Patency: Peripheral IV = 5 mL; Midline or Central Line = 10 mL/lumen. If following IV push medication, administer flush at same rate as the IV push. Flush volume is determined by type of infusion therapy being given. For non-viscous solutions use: Peripheral IV = 5 mL Midline or Central Line = 10 mL/lumen For viscous solutions (i.e. blood components, parenteral nutrition, contrast media, or after obtaining blood sample) use: Peripheral IV = 10 mL Midline or Central Line = 20 mL/lumen, Pre-op (day of surgery) sodium chloride flush 0.9 % injection 5-40 mL 5-40 mL, IntraVENous, PRN, Starting on Tue01/20/22 at 1357, Until Discontinued, Line Care, After every IV line use, For Line Patency: Peripheral IV = 5 mL; Midline or Central Line = 10 mL/lumen. If following IV push medication, administer flush at same rate as the IV push. Flush volume is determined by type of infusion therapy being given. For non-viscous solutions use: Peripheral IV = 5 mL Midline or Central Line = 10 mL/lumen For viscous solutions (i.e. blood components, parenteral nutrition, contrast media, or after obtaining blood sample) use: Peripheral IV = 10 mL Midline or Central Line = 20 mL/lumen, PACU only Linked Groups Order Group 1: labetalol (NORMODYNE;TRANDATE) injection 5 mgJump to med 5 mg, IntraVENous, EVERY 10 MIN PRN, 2 doses, Starting on Tue01/20/22 at 1357, Until Discontinued, High Blood Pressure
PRN for SBP >160 for 2 consecutive measurements, if HR is 60 or greater. If beta sandra is contraindicated (HR less than 60, heart block, COPD or asthma) use hydralazine IV order. for use Sameday and
PACU only Or hydrALAZINE (APRESOLINE) injection 5 mgJump to med 5 mg, IntraVENous, EVERY 10 MIN PRN, 2 doses, Starting on Tue01/20/22 at 1357, Until Discontinued, High Blood Pressure
PRN for SBP > 160 for 2 consecutive measurements, and if one of the following conditions is met: 1) If IV labetolol is ineffective. 2) If HR is under 60. 3) If patient has heart block, COPD or asthma. If both labetalol and hydralazine ineffective, notify anesthesiologist. for use Sameday and
PACU only Group 2: oxyCODONE (ROXICODONE) immediate release tablet 5 mgJump to med 5 mg, Oral, PRN, 1 dose, Starting on Tue01/20/22 at 1357, Until Tue01/20/22 at 2359, Pain Moderate (4-6)
PHASE II
PACU only Or oxyCODONE (ROXICODONE) immediate release tablet 10 mgJump to med 10 mg, Oral, PRN, 1 dose, Starting on Tue01/20/22 at 1357, Until Tue01/20/22 at 2359, Pain Severe (7-10)
PHASE II
PACU only Scheduled Medication Order 09/27/2022 09/28/2022 09/29/2022 amLODIPine (Norvasc) tablet 10 mg 10 mg, Oral, Every 24 hours, First dose on Tue09/28/22 at 0930 0948 (Given - Provider: Maurizio Penny, RN) 0940 (Given - Provider: Jonna Lima RN) calcium gluconate 1000 mg in 100 mL IVPB premix (COMPLETED) 1,000 mg, IntraVENous, at 100 mL/hr, Administer over 1 Hours, Once, On Tue09/27/22 at 0200, For 1 dose, premix bag 0244 (Given - Provider: Peggy Martin RN) calcium gluconate 1000 mg in 100 mL IVPB premix (COMPLETED) 1,000 mg, IntraVENous, Administer over 1 Hours, Once, On Tue09/27/22 at 0540, For 1 dose, premix bag 0801 (Given - Provider: Maurizio Penny RN) calcium gluconate 2000 mg in 100 mL IVPB premix (COMPLETED) 2,000 mg, IntraVENous, at 50 mL/hr, Administer over 2 Hours, Once, On Tue09/27/22 at 0340, For 1 dose, premix bag 0621 (New Bag - Provider: Peggy Martin RN - Comment: Need IV)08 (Stopped - Provider: Maurizio Penny RN) enoxaparin (Lovenox) syringe 40 mg 40 mg, SubCUTAneous, Every 24 hours scheduled (Daily), First dose on Tue09/27/22 at 0900, Renal dosing, Indication of Use: Prophylaxis-DVT/PE, Indications: Prophylaxis of Venous Thromboembolism 08 (Not Given - Provider: Maurizio Penny RN - Reason: Patient/family refused) 08 (Given - Provider: Maurizio Penny RN) 0940 (Given - Provider: Jonna Lima RN) levothyroxine (Synthroid, Levoxyl) tablet 50 mcg 50 mcg, Oral, Daily, First dose on Tue09/28/22 at 0915, Tube feeding (TF) interaction, obtain physician order to manage, recommend holding TF for 30 minutes before and after dose. 0948 (Given - Provider: Maurizio Penny RN) 0627 (Given - Provider: Melani Phillips) magnesium oxide (Mag-Ox) tablet 400 mg (CANCELED) 400 mg, Oral, 4 times daily, First dose on Tue09/27/22 at 0900 0805 (Given - Provider: Maurizio Penny RN) magnesium oxide (Mag-Ox) tablet 800 mg 800 mg, Oral, 2 times daily, First dose on Tue09/29/22 at 1030 1157 (Given - Provider: Jonna Lima RN) magnesium sulfate IVPB 4,000 mg (COMPLETED) 4,000 mg, IntraVENous, at 25 mL/hr, Administer over 4 Hours, Once, On Tue09/27/22 at 0200, For 1 dose, Recommended infusion rate not to exceed 1,000 mg (milligrams) per hour. 0245 (New Bag - Provider: Peggy Martin RN)0645 (Stopped - Provider: Jose Cruz Tam RN) magnesium sulfate IVPB premix 2,000 mg (COMPLETED) 2,000 mg, IntraVENous, at 25 mL/hr, Administer over 2 Hours, Once, On Tue09/27/22 at 0900, For 1 dose, Recommended infusion rate not to exceed 1,000 mg (milligrams) per hour. 0959 (New Bag - Provider: Maurizio Penny RN)1159 (Stopped - Provider: Maurizio Penny RN) magnesium sulfate IVPB premix 2,000 mg (COMPLETED) 2,000 mg, IntraVENous, at 25 mL/hr, Administer over 2 Hours, Once, On Tue09/28/22 at 0915, For 1 dose, Recommended infusion rate not to exceed 1,000 mg (milligrams) per hour. 0948 (New Bag - Provider: Maurizio Penny RN)1148 (Stopped - Provider: Maurizio Penny RN) nystatin (Mycostatin) 262251 UNIT/ML suspension 500,000 Units (CANCELED) 500,000 Units (5 mL), Swish & Swallow, 4 times daily, First dose on Tue09/27/22 at 0900, For 5 days 0808 (Not Given - Provider: Maurizio Penny RN - Reason: Patient/family refused)1300 (Not Given - Provider: Maurizio Penny RN - Reason: Patient/family refused)1700 (Not Given - Provider: Maurizio Penny RN - Reason: Patient/family refused)2044 (Given - Provider: Peggy Catherine RN) 0822 (Given - Provider: Maurizio Penny RN) ondansetron (Zofran) injection 4 mg (COMPLETED) 4 mg, IntraVENous, Once, On Tue09/27/22 at 0105, For 1 dose 0157 (Given - Provider: Adia Glez RN) pantoprazole (ProtoNix) EC tablet 40 mg (CANCELED) 40 mg, Oral, Daily before breakfast, First dose on Tue09/27/22 at 2000, Do not crush, chew, or split. 2044 (Given - Provider: Peggy Catherine RN) 0706 (Given - Provider: Peggy Catherine RN) sodium bicarbonate tablet 1,300 mg 1,300 mg, Oral, 2 times daily, First dose on Tue09/29/22 at 1030 1157 (Given - Provider: Jonna Lima RN) sodium chloride 0.9 % bolus 1,000 mL (COMPLETED) 1,000 mL, IntraVENous, at 1,000 mL/hr, Administer over 1 Hours, Once, On Tue09/27/22 at 0105, For 1 dose 0138 (New Bag - Provider: Daisha Alexandre LPN)0238 (Stopped - Provider: Peggy Martin RN) sodium zirconium cyclosilicate (Lokelma) packet 10 g (COMPLETED) 10 g, Oral, Once, On Tue09/29/22 at 1000, For 1 dose, Empty entire contents of packet(s) into 45 mL water. Stir well and administer immediately. If powder remains, rinse glass with water and administer. 1023 (Given - Provider: Jonna Lima RN) Continuous Medication Order 09/27/2022 09/28/2022 09/29/2022 lactated Ringer's (LR) infusion (CANCELED) 100 mL/hr, IntraVENous, Continuous, Starting on Tue09/27/22 at 0645 0649 (New Bag - Provider: Jose Cruz Tam, ALCIDES)0844 (Stopped - Provider: Maurizio Penyn RN) PRN Medication Order 09/27/2022 09/28/2022 09/29/2022 Acetaminophen (Tylenol) 650 MG/20.3ML solution 650 mg(Linked Group 1) 650 mg, Oral, Every 4 hours PRN, mild pain (1-3), Starting on Tue09/27/22 at 1553, Give oral liquid if patient prefers or per feeding tube if present. If inadequate response within 60 minutes, proceed to next-line agent for same PRN reason or contact provider if no further options ordered. 1603 (See Alternative - Provider: Maurizio Penny RN) acetaminophen (Tylenol) suppository 650 mg(Linked Group 1) 650 mg, Rectal, Every 4 hours PRN, mild pain (1-3), Starting on Tue09/27/22 at 1553, Give GA if unable to administer by mouth or feeding tube. If inadequate response within 60 minutes, proceed to next-line agent for same PRN reason or contact provider if no further options ordered. 1603 (See Alternative - Provider: Maurizio Penny RN) acetaminophen (Tylenol) tablet 650 mg(Linked Group 1) 650 mg, Oral, Every 4 hours PRN, mild pain (1-3), Starting on Tue09/27/22 at 1553, If inadequate response within 60 minutes, proceed to next-line agent for same PRN reason or contact provider if no further options ordered. 1603 (Given - Provider: Maurizio Penny RN) ondansetron (Zofran) injection 4 mg(Linked Group 2) 4 mg, IntraVENous, Every 6 hours PRN, nausea, vomiting, Starting on Tue09/27/22 at 0633, 1st Line. Give IV if patient is unable to take orally. If inadequate response within 60 minutes, proceed to next-line agent or contact provider if no further options ordered. 07 (Given - Provider: Maurizio Penny RN) 2116 (Given - Provider: Melani Phillips) 354 (Given - Provider: Melani Phillips) ondansetron ODT (Zofran-ODT) disintegrating tablet 4 mg(Linked Group 2) 4 mg, Oral, Every 8 hours PRN, nausea, vomiting, Starting on Tue09/27/22 at 0633, 1st Line. If inadequate response within 60 minutes, proceed to next-line agent or contact provider if no further options ordered. Patient should allow tablet to dissolve on tongue. Do not remove from blister pack until just before administering. 724 (See Alternative - Provider: Maurizio Penny RN) 2116 (See Alternative - Provider: Melani Phillips) 354 (See Alternative - Provider: Melani Phillips) polyethylene glycol (PEG) 3350 (Miralax) packet 17 g 17 g, Oral, Daily PRN, constipation, Starting on Tue09/27/22 at 0633, 1st line for treatment of constipation - give scheduled if no bowel movement in past 24 hours. Linked Groups Order Group 1: acetaminophen (Tylenol) tablet 650 mgJump to med 650 mg, Oral, Every 4 hours PRN, mild pain (1-3), Starting on Tue09/27/22 at 1553
If inadequate response within 60 minutes, proceed to next-line agent for same PRN reason or contact provider if no further options ordered.
Or Acetaminophen (Tylenol) 650 MG/20.3ML solution 650 mgJump to med 650 mg, Oral, Every 4 hours PRN, mild pain (1-3), Starting on Tue09/27/22 at 1553
Give oral liquid if patient prefers or per feeding tube if present. If inadequate response within 60 minutes, proceed to next-line agent for same PRN reason or contact provider if no further options ordered.
Or acetaminophen (Tylenol) suppository 650 mgJump to med 650 mg, Rectal, Every 4 hours PRN, mild pain (1-3), Starting on Tue09/27/22 at 1553
Give GA if unable to administer by mouth or feeding tube. If inadequate response within 60 minutes, proceed to next-line agent for same PRN reason or contact provider if no further options ordered.
Group 2: ondansetron ODT (Zofran-ODT) disintegrating tablet 4 mgJump to med 4 mg, Oral, Every 8 hours PRN, nausea, vomiting, Starting on Tue09/27/22 at 0633
1st Line. If inadequate response within 60 minutes, proceed to next-line agent or contact provider if no further options ordered. Patient should allow tablet to dissolve on tongue. Do not remove from blister pack until just before administering.
Or ondansetron (Zofran) injection 4 mgJump to med 4 mg, IntraVENous, Every 6 hours PRN, nausea, vomiting, Starting on Tue09/27/22 at 0633
1st Line. Give IV if patient is unable to take orally. If inadequate response within 60 minutes, proceed to next-line agent or contact provider if no further options ordered.
Care Teams (unrecognized sec tion and content) Kiln Remover Relationship Specialty Start Date End Date Camille Goodman MD [address] [place] [address] [id number] PCP - General 11/05/14 Kiln Remover Relationship Specialty Start Date End Date Camille Goodman MD [address] [place] [address] [id number] PCP - General 11/05/14 Kiln Remover Relationship Specialty Start Date End Date Camille Goodman MD [address] [place] [address] [phone] PCP - General 11/05/14 Kiln Remover Relationship Specialty Start Date End Date Camille Goodman MD [address] [place] [address] [phone] PCP - General 11/05/14 Kiln Remover Relationship Specialty Start Date End Date Camille Goodman MD [address] [place] [address] [id number] PCP - General 11/05/14 Kiln Remover Relationship Specialty Start Date End Date Camille Goodman MD [address] [place] [address] [phone] PCP - General 11/05/14 Kiln Remover Relationship Specialty Start Date End Date Camille Goodman MD [address] [facility] [address] [place] [id number] PCP - General Family Medicine 08/29/17 Kiln Remover Relationship Specialty Start Date End Date Camille Goodman MD [address] [place] [address] [phone] PCP - General 11/05/14 Kiln Remover Relationship Specialty Start Date End Date Camille Goodman MD [address] [place] [address] [phone] PCP - General 11/05/14 Kiln Remover Relationship Specialty Start Date End Date Camille Goodman MD PCP - General Family Medicine 08/29/17 Kiln Remover Relationship Specialty Start Date End Date Camille Goodman MD PCP - General Family Medicine 08/29/17 Kiln Remover Relationship Specialty Start Date End Date Camille Goodman MD PCP - General Family Medicine 08/29/17 Source Comments (unrecognize d section and content) In the event this informatio n is protected by the Federal Confidentiality of Alcohol and Drug Abuse Patient Records regulations: The Federal rules restrict any use of the information to criminally investigate or prosecute any alcohol or drug abuse patient.[facility] the event this information is protected by the Federal Confidentiality of Alcohol and Drug Abuse Patient Records regulations: The Federal rules restrict any use of the information to criminally investigate or prosecute any alcohol or drug abuse patient.[facility] the event this information is protected by the Federal Confidentiality of Alcohol and Drug Abuse Patient Records regulations: The Federal rules restrict any use of the information to criminally investigate or prosecute any alcohol or drug abuse patient.[facility] the event this information is protected by the Federal Confidentiality of Alcohol and Drug Abuse Patient Records regulations: The Federal rules restrict any use of the information to criminally investigate or prosecute any alcohol or drug abuse patient.[facility] HospitalIn the event this information is protected by the Federal Confidentiality of Alcohol and Drug Abuse Patient Records regulations: The Federal rules restrict any use of the information to criminally investigate or prosecute any alcohol or drug abuse patient.[facility] FOR RECORDS PERTAINING TO PATIENTS WHO ARE OR HAVE BEEN ENROLLED IN A CHEMICAL DEPENDENCY/SUBSTANCEABUSE PROGRAM, SOME INFORMATION MAY BE OMITTED. This clinical summary was aggregated from multiple sources. Caution should be exercised in using it in the provision of clinical care. This summary normalizes information from multiple sources, and as a consequence, information in this document may materially change the coding, format and clinical context of patient data. In addition, data may be omitted in some cases. CLINICAL DECISIONS SHOULD BE BASED ON THE PRIMARY CLINICAL RECORDS. [facility] [employer] [facility]. provides no warranty or guarantee of the accuracy or completeness of information in this document.
--- NOTE | 2025-01-15 22:12 | EKG12_ITS ---
Test Reason : STROKE ALERT Blood Pressure : */* mmHG Vent. Rate : 77 BPM Atrial Rate : 92 BPM P-R Int : * ms QRS Dur : 162 ms QT Int : 390 ms P-R-T Axes : 90 31 43 degrees QTcB Int : 441 ms Probable Sinus rhythm Baseline artifact Cannot interpret Confirmed by Shaun Freedman ([id number]), sports editor ANDREW MCMULLEN ([id number]) on 01/17/2025 5:59:37 AM Referred By: JOSE Confirmed By: Shaun Freedman
[2025-01-15 22:24] LABS: Hematocrit 30.4 % (37-47); Hemoglobin 10.0 g/dL (12.0-15.0); Immature Granulocytes Count 0.070 X10^3/uL (0.0-0.0); Mean Corp Hgb Conc 32.9 g/dL (32-36); Mean Corpuscular Volume 89.4 fL (81-99); Mean Platelet Vol. 10.3 fl (6.2-12.0); NRBC Flagged by Analyzer 0 % (0-5); Platelet Count 368 K/mm3 (150-450); RBC Distribution Width CV 13.3 % (11.6-14.6); RBC Distribution Width SD 43.7 fl (35.1-43.9); Red Blood Count 3.40 M/mm3 (4.2-5.4); White Blood Count 13.2 K/mm3 (4.4-11.0)
[2025-01-15 22:36] LABS: Prothrombin Time (Protime)PT. 13.6 SECONDS (11.7-14.9)
[2025-01-15 22:37] LABS: Partial Thromboplast Time 29.0 Seconds (24.1-36.2)
[2025-01-15 22:42] LABS: Anion Gap 17 (5-15); BUN 36 mg/dL (4-19); BUN/Creat Ratio 8.8 RATIO (10-20); Calcium,Total 7.5 mg/dL (7.6-11.0); Carbon Dioxide 16.1 mmol/L (21.0-32.0); Chloride 110 mmol/L (98-108); Estimated Creatinine Clearance 15.76 ml/min (50-250); Glucose 139 mg/dL (70-99); Potassium 5.0 mmol/L (3.3-5.1); Troponin T High Sensitivity 45 ng/L (<=14)
--- NOTE | 2025-01-15 23:59 | RAD_ITS ---
PROCEDURE: CHEST PA AND LATERAL 01/15/2025 REASON FOR EXAM: BIBASILAR RALES TECHNIQUE: Procedure Code: RADCXR Modality: DX Procedure: CHEST PA AND LATERAL COMPARISON: None. FINDINGS: Mild bilateral basilar atelectatic pulmonary changes. There is no demonstrated pleural abnormality. Enlarged cardiac silhouette. Normal mediastinum and hermelinda. Normal visualized pulmonary arteries. Atheromatous plaques of the visualized aortic arch and descending thoracic aorta. Diffuse spondylosis of the visualized thoracic spine. Normal visualized ribs, clavicles. Degenerative joint disease. There is no demonstrated abnormality of the visualized soft tissue structures of the upper abdomen. RAD/Chest PA and Lateral IMPRESSION: Mild bilateral basilar atelectatic pulmonary changes. Reading [facility]
[2025-01-16] VITALS (19 sets, daily range): BP systolic 125–155; BP diastolic 64–91; PULSE 61–82; RESP 13–20; TEMP 36–36.8; O2SAT 89–98; BMI 35.8
--- NOTE | 2025-01-16 00:20 | ED.VIS.STROK ---
HPI History of Present Illness Chief Complaint: Stroke Alert Detail of Chief Complaint: Stroke alert because of altered mental status, facial droop and decreased s Informant: patient and EMS Onset/Context/Timing Onset: Today (Last known well January 15 at 8 AM) Context: Sudden Onset Timing: Continuous Quality and Location: Positive for Right Facial Droop, Right Face Paresthesia and - (Disorientation) Onset: Unknown awoke on the floor next to her bed at 1999. Current Severity: Mild Maximum Severity: Mild Worsened by: Unknown Relieved by: Nothing Associated Symptoms Associated Symptoms: Positive for Headache, Nausea and Vomiting; Negative for Chest Pain Narrative Narrative: Patient is a 64-year-old woman. She works third shift. She came home and went to bed at 8 AM. She states she was normal at that time. Patient's memory appears impaired. She knows her age but does not know the month. She has no recall falling out of her bed. She has no prior history of fall out of her bed. She denies double vision, blurred vision or loss of vision. She denies trouble expressing herself. She denies chest pain, shortness of breath or difficulty breathing. She denies abdominal pain. She denies diarrhea. She denies black or maroon-colored stool. Patient denies dysuria, frequency, urgency or hematuria. Recent Illness/Hospitalization: No PFSH [facility] Medical History (Updated 01/16/25 @ 02:[address] Brian Washburn, ) High cholesterol GERD (gastroesophageal reflux disease) Hypothyroidism HTN (hypertension) Medical History no medical history Home Medications ?Medication ?Instructions ?Recorded ?Last Taken ?Type levothyroxine 50 mcg tablet 50 mcg PO DAILY 11/22/17 02/01/24 History magnesium oxide 400 mg (241.3 mg 400 mg PO TID 11/22/17 02/02/24 History magnesium) tablet acetaminophen 500 mg tablet 1,000 mg PO Q6H PRN pain 02/02/24 02/02/24 History amlodipine 10 mg tablet 10 mg PO DAILY 02/02/24 02/01/24 History ergocalciferol (vitamin D2) 1,250 1,250 mcg PO .COMPLEX 02/02/24 01/20/24 History mcg (50,000 unit) capsule hyoscyamine sulfate 0.125 mg tablet 0.125 mg PO Q6H PRN dyspepsia 5 02/02/24 Unknown Rx days #20 tabs omeprazole 40 mg capsule,delayed 40 mg PO DAILY PRN heartburn 02/02/24 02/01/24 History release ondansetron 4 mg disintegrating 4 mg PO Q6H PRN nausea and 02/02/24 Unknown Rx tablet vomiting #20 tabs ondansetron 4 mg disintegrating 4 mg PO Q8H PRN nausea and vomiting 02/02/24 02/02/24 History tablet psyllium (Hydrocil Instant oral 1 packet PO DAILY PRN constipation 02/02/24 02/01/24 History packet) sodium bicarbonate 650 mg tablet 650 mg PO 4X/DAY 02/02/24 02/02/24 History tramadol 50 mg tablet 50 mg PO Q6H PRN pain 3 days #12 02/02/24 Unknown Rx tabs lacosamide 100 mg tablet 100 mg PO BID 30 days #60 tabs 01/17/25 Unknown Rx pravastatin 20 mg tablet 20 mg PO QHS 30 days #30 tabs 01/17/25 Unknown Rx Allergy/AdvReac Type Severity Reaction Status Date / Time acetaminophen (From Percocet) Allergy Shortness Verified 02/02/24 08:53 of breath codeine Allergy Shortness Verified 02/02/24 08:53 of breath hydromorphone (From Dilaudid) Allergy Shortness Verified 02/02/24 08:53 of breath morphine Allergy Shortness Verified 02/02/24 08:53 of breath moxifloxacin (From Avelox) Allergy Shortness Verified 02/02/24 08:53 of breath oxycodone (From Percocet) Allergy Shortness Verified 02/02/24 08:53 of breath Penicillins Allergy Shortness Verified 02/02/24 08:53 of breath Family History no significant family his Surgical History no surgical history Social History household members: none Smoking Status: Heavy Smoker (>10/day) ROS ROS ED Constitutional Constitutional ED: Denies chills or fever(s) Eyes Eyes: Denies blurry vision, change in vision or diplopia ENT ENT ED: Denies ear pain, rhinorrhea or sore throat Cardiovascular Cardiovascular: Denies chest pain or palpitations Respiratory/Chest Respiratory/Chest: Denies cough, dyspnea or dyspnea on exertion Gastrointestinal Gastrointestinal: Reports nausea, vomiting and other Details: She did receive Zofran and ODT in the field. ; Denies abdominal pain, constipation, diarrhea or melena Genitourinary Genitourinary ED: Denies dysuria, hematuria or urinary frequency Musculoskeletal Musculoskeletal: Denies arthralgias, myalgias or neck pain Integumentary Denies rash Neurologic Neurologic: Reports headache(s) and weakness; Denies paresthesias Psychiatric Psychiatric: Denies anxiety or depression Hematologic/Lymphatic Hematologic/Lymphatic: Denies easy bleeding or easy bruising EXAM Physical Exam Const Vital Signs: 01/15/25 21:56 01/15/25 22:00 01/15/25 22:00 Temperature Temperature Source Pulse Rate 74 75 Respiratory Rate 13 15 Respiratory Effort Respiratory Depth Respiratory Pattern Blood Pressure 143/79 H 131/63 H Blood Pressure Mean 100 85 Pulse Ox 97 97 Oxygen Delivery Method Room Air Room Air Room Air 01/15/25 22:11 01/15/25 22:15 01/15/25 22:30 Temperature 98.1 F Temperature Source Oral Pulse Rate 77 69 Respiratory Rate 16 16 Respiratory Effort Normal Respiratory Depth Normal Respiratory Pattern Normal Blood Pressure 143/79 H 146/75 H Blood Pressure Mean 100 98 Pulse Ox 97 98 92 Oxygen Delivery Method Room Air Room Air Room Air 01/15/25 22:40 01/15/25 22:45 01/15/25 23:00 Temperature Temperature Source Pulse Rate 68 72 70 Respiratory Rate 20 H 15 16 Respiratory Effort Respiratory Depth Respiratory Pattern Blood Pressure 121/74 H 137/74 H Blood Pressure Mean 89 95 Pulse Ox 90 96 94 Oxygen Delivery Method Room Air 01/15/25 23:00 01/15/25 23:15 01/15/25 23:30 Temperature Temperature Source Pulse Rate 71 Respiratory Rate 13 Respiratory Effort Respiratory Depth Respiratory Pattern Blood Pressure 137/74 H 137/74 H 134/51 H Blood Pressure Mean 93 92 75 Pulse Ox 95 94 94 Oxygen Delivery Method 01/15/25 23:45 01/16/25 00:00 Temperature Temperature Source Pulse Rate 70 Respiratory Rate 20 H Respiratory Effort Respiratory Depth Respiratory Pattern Blood Pressure 130/62 H 132/64 H Blood Pressure Mean 82 86 Pulse Ox 97 Oxygen Delivery Method Room Air Positive well nourished and well developed Constitutional Narrative: Patient is slow to respond. She is disoriented to time. History is limited. There is no evidence of head trauma. General Appearance ED: well developed HEENT Reports TM's clear atraumatic Tympanic Membrane ED: Yes TM's clear Eyes PERRL and EOMs intact bilaterally Eyes Narrative: Patient does have nystagmus with lateral gaze. General Eye ED: Negative for pale conjunctiva or scleral icterus Neck no lymphadenopathy, supple and no JVD Neck Narrative: There is no posterior midline neck pain. Full active range of motion without pain. There is no evidence of hesitation or grimacing to suggest she has pain either. Chest Wall inspection of chest normal and palpation of chest normal Resp normal respiratory effort and clear to auscultation bilaterally Cardio no murmurs Rate: regular rate Rhythm: regular rhythm Heart Sounds: S1 normal and S2 normal GI normal to inspection, nondistended, normoactive bowel sounds, soft to palpation, non-tender, non-distended and no masses Back/Spine no CVA tenderness Extremity normal to inspection General Extremety ED: Negative for deformity, edema or tenderness General Extremity: Negative for deformity or edema Neuro No oriented x3, No CN's II-XII intact bilaterally and No no sensory deficits noted [place] Coma Scale: document GCS findings Spontaneous Obeys Commands Confused 14 Sensorium / Orientation: Negative for alert Speech: speech normal Motor Exam: strength 5/5 throughout Psych Mood & Affect: depressed Skin no wounds Lesions: no lesions Rashes: no rashes MDM MDM MDM Narrative Medical decision making narrative: Patient arrived as a stroke team. Patient was last known well at 8 AM. She works third shift. She awoke on the floor at 8 AM. She was on the floor of her bedroom. She has a slight facial droop. She is not oriented to time. She denies use of antithrombotic or anticoagulant. Review of prior records indicates she is not on either. With history of fall from bed altered mental status will obtain emergent CT of the head without contrast to evaluate for intracranial bleed. Since consideration is a stroke since she has decreased nasal labial fold on the right and altered sensation on the right a CTA of the head neck was ordered. Her GFR is 12 therefore it was not performed and canceled. Need to consider metabolic and infectious causes as well. Chest x-ray was obtained to rule out pneumonia and specifically aspiration since she had vomited per squad and reason they gave her Zofran ODT. Spoke with the stroke neurologist at [facility]. He agreed that a CTA can be canceled at this time. He will see patient in consultation tomorrow since he is the change consultant neurologist and recommends MRI of the brain. Lab Data Attestation: I reviewed the patient's lab results. Lab results narrative: CBC is remarked for an elevated white count of 13.2 with shift. There is no bandemia. H&H is 10 and 30.4. Electrolyte panel is remarkable for a CO2 of 16 with an anion gap of 17. BUN and creatinine are 36 and 4.06 with an estimated GFR of 12, this is her baseline. Glucose was slightly elevated. First troponin is elevated which may be due to the fact that she has renal disease. 2-hour troponin is 46 with a delta of 1. 4-hour troponin was canceled. Labs: Laboratory Results - last 24 hr 01/15/25 21:58 POC Glucose 106 Radiography Chest X-Ray - ED: 2 View and Read by ED Physician (Limited inspiratory volume. There is no effusion, infiltrate, cephalization noted. Cardiac size and silhouette are unremarkable. Hilum is normal. Osseous structures reveal no acute pathology.) Diagnostic Testing: Clinical Impression(s) from Imaging Studies Brain CT 01/15/25 22:00 IMPRESSION: No acute intracranial abnormality. Reading Location: [id number] Chest X-Ray 01/15/25 23:59 IMPRESSION: Mild bilateral basilar atelectatic pulmonary changes. Reading Location: [place] [id number] CT minus was obtained of the head. Contrast was not given because of her GFR of 12. This was relayed to the stroke neurologist at [facility]. He states he will see her in consultation tomorrow. Recommended MRI. EKG Initial EKG: Attestation: I personally reviewed and interpreted this EKG as follows: Interpretation: Sinus Rhythm (Rate is 75. EKG reveals no acute ischemic changes. MI interval is 132 ms. QRS duration 80 ms. QT durations are 96 ms. [place] is normal.) Management Discussion w/another healthcare provider: Hospitalist (Dr. Brian Sorenson), Delivery Supervisor ([facility] stroke neurologist.) and Radiologist (Stroke radiologist) Treatment and Re-Evaluation Narrative: Since patient has not urinated straight cath was ordered. Discharge Plan Dx/Rx/DC Orders Clinical Impression: Acute alteration in mental status, Facial droop, Leukocytosis, Kidney disease, chronic, stage V (GFR under 15 ml/min), High anion gap metabolic acidosis, Nondiabetic hyperglycemia, Elevated troponin, Anemia in chronic kidney disease (CKD) Disposition Disposition: [facility] Discharge Date/Time: 01/16/25 02:21 NIHSS NIHSS 1a. Level of Consciousness: 0 - Alert; keenly responsive 1b. LOC Questions: 1 - Answers ONE question correctly 1c. LOC Commands: 0 - Performs BOTH tasks correctly 2. Best Gaze: 0 - Normal 3. Visual: 0 - No visual loss 4. Facial Palsy: 1 - Minor paralysis (flattened nasolabial fold, asymmetry on smiling) 5a. Left Arm: 0 - No drift; arm holds 90 (or 45) degrees for full 10 seconds 5b. Right Arm: 0 - No drift; arm holds 90 (or 45) degrees for full 10 seconds 6a. Left Le - No drift; leg holds 30-degree position for full 5 seconds 6b. Right Le - No drift; leg holds 30-degree position for full 5 seconds 7. Limb Ataxia: 0 - Absent 8. Sensory: 1 - [id number] sensory loss; (Right side of the face. Forehead is spared.) 9. Best Language: 0 - No aphasia; normal 10. Dysarthria: 0 - Normal 11. Extinction and Inattention: 0 - No abnormality Total: 3 Stroke Questions Stroke Team Activated: Yes Reviewed Inclusion/Exclusion criteria: Yes IV Thrombolytic Administered: No (Patient was outside of the window.) No contraindications from thrombolytic administration: No
[2025-01-16 00:42] LABS: Troponin T High Sens 2 HR 46 ng/L (<=14)
--- NOTE | 2025-01-16 01:04 | PCM.HP.STD ---
[facility] - General General Date of Admission: 01/16/25 Date of Service: 01/16/25 Chief Complaint: Stroke Alert with Right-sided Facial Droop, Numbness and Confusion. HPI Narrative CARLOS A COYLE, is a 64 F with a past medical history of essential hypertension; on amlodipine, hyperlipidemia; previously on rosuvastatin which was stopped due to muscle pain, hypothyroidism; on levothyroxine, obesity (class II); with BMI of 37.1 this admission, CKD; stage V with patient currently holding off on HD, chronic tobacco abuse, history of colon polyps (2021), GERD with dyspepsia; on omeprazole daily prn plus hyoscyamine sulfate q. 6 hours prn and OA; on prn tramadol q. 6 hours who presents to [facility] ER complaining of Right-sided numbness and confusion. Ms. Coyle reports she works third shift and returned home after work at ~8:00 AM and then went to bed normal at that time. She then woke up on the floor net to her bed at ~8:00 PM with Right-sided facial droop, numbness, mildly slurred speech and confusion. She also admits to associated headache with nausea and vomiting with EMS treating her with ondansetron ODT in the field but she does not recall any other details with obvious memory impairment - as she knows her age - but not the month. She denies a history of falling out of bed or CVA. She denies related visual changes, chest pain, palpitations, heart racing, LE edema, SOB, abdominal pain, constipation, diarrhea, blood in stools, blood in vomitus, dysuria, hematuria, rash or recent illness/hospitalization. In the ER she underwent a CT scan of the brain without contrast that revealed no acute intracranial abnormality complicated by Leukocytosis of 13.2K present on admission with no overt signs of infection due to suspected acute stress response in the setting of suspected CVA and she was then admitted to the PCU under observation status for ongoing care for a stay that is expected to be less than 2 midnights. [facility] Medical History (Updated 01/16/25 @ 02:[address] Brian Washburn, DO) High cholesterol GERD (gastroesophageal reflux disease) Hypothyroidism HTN (hypertension) Medical History no medical history Home Medications ?Medication ?Instructions ?Recorded ?Last Taken ?Type levothyroxine 50 mcg tablet 50 mcg PO DAILY 11/22/17 02/01/24 History magnesium oxide 400 mg (241.3 mg 400 mg PO TID 11/22/17 02/02/24 History magnesium) tablet acetaminophen 500 mg tablet 1,000 mg PO Q6H PRN pain 02/02/24 02/02/24 History amlodipine 10 mg tablet 10 mg PO DAILY 02/02/24 02/01/24 History amoxicillin 875 mg-potassium 1 tab PO Q12H 7 days #14 tabs 02/02/24 Unknown Rx clavulanate 125 mg tablet ergocalciferol (vitamin D2) 1,250 1,250 mcg PO .COMPLEX 02/02/24 01/20/24 History mcg (50,000 unit) capsule hyoscyamine sulfate 0.125 mg tablet 0.125 mg PO Q6H PRN dyspepsia 5 02/02/24 Unknown Rx days #20 tabs omeprazole 40 mg capsule,delayed 40 mg PO DAILY PRN heartburn 02/02/24 02/01/24 History release ondansetron 4 mg disintegrating 4 mg PO Q6H PRN nausea and 02/02/24 Unknown Rx tablet vomiting #20 tabs ondansetron 4 mg disintegrating 4 mg PO Q8H PRN nausea and vomiting 02/02/24 02/02/24 History tablet psyllium (Hydrocil Instant oral 1 packet PO DAILY PRN constipation 02/02/24 02/01/24 History packet) rosuvastatin 20 mg tablet 20 mg PO DAILY 02/02/24 02/01/24 History sodium bicarbonate 650 mg tablet 650 mg PO 4X/DAY 02/02/24 02/02/24 History tramadol 50 mg tablet 50 mg PO Q6H PRN pain 3 days #12 02/02/24 Unknown Rx tabs Allergy/AdvReac Type Severity Reaction Status Date / Time acetaminophen (From Percocet) Allergy Shortness Verified 02/02/24 08:53 of breath codeine Allergy Shortness Verified 02/02/24 08:53 of breath hydromorphone (From Dilaudid) Allergy Shortness Verified 02/02/24 08:53 of breath morphine Allergy Shortness Verified 02/02/24 08:53 of breath moxifloxacin (From Avelox) Allergy Shortness Verified 02/02/24 08:53 of breath oxycodone (From Percocet) Allergy Shortness Verified 02/02/24 08:53 of breath Penicillins Allergy Shortness Verified 02/02/24 08:53 of breath Family History no significant family his Surgical History no surgical history Social History household members: none Smoking Status: Heavy Smoker (>10/day) ROS ROS Narrative Review of Systems: Constitutional: Patient is mildly confused but she denies fever or chills. Eyes: Patient denies changes in vision or discharge from eyes. ENT: Patient denies runny nose, sore throat or ear pain. Resp: Patient denies SOB or cough. CV: Patient denies chest pain, palpitations, heart racing or LE edema. GI: Patient admits to nausea and vomiting with bilious emesis as per HPI. : Patient denies dysuria or hematuria. MSK: Patient admits to Right facial droop but she denies arthralgias or myalgias. Skin: Patient denies rash, abscess, wounds or jaundice. Psych: Patient is confused but she denies symptoms of uncontrolled depression or anxiety. Neuro: Patient admits to Right facial droop and numbness with mildly slurred speech but she denies headache. Allergy: Patient denies lip swelling, tongue swelling or urticaria. Hematology: Patient denies easy bleeding or easy bruisability. Endocrinology: Patient denies polyuria, polydipsia, polyphagia or heat/cold intolerance. 14 point ROS otherwise negative except for positives noted above in HPI. Vital Signs Vital Signs Vital Signs: 01/15/25 21:56 01/15/25 22:00 01/15/25 22:00 Temperature Temperature Source Pulse Rate 74 75 Respiratory Rate 13 15 Respiratory Effort Respiratory Depth Respiratory Pattern Blood Pressure 143/79 H 131/63 H Blood Pressure Mean 100 85 Pulse Ox 97 97 Oxygen Delivery Method Room Air Room Air Room Air 01/15/25 22:11 01/15/25 22:15 01/15/25 22:30 Temperature 98.1 F Temperature Source Oral Pulse Rate 77 69 Respiratory Rate 16 16 Respiratory Effort Normal Respiratory Depth Normal Respiratory Pattern Normal Blood Pressure 143/79 H 146/75 H Blood Pressure Mean 100 98 Pulse Ox 97 98 92 Oxygen Delivery Method Room Air Room Air Room Air 01/15/25 22:40 01/15/25 22:45 01/15/25 23:00 Temperature Temperature Source Pulse Rate 68 72 70 Respiratory Rate 20 H 15 16 Respiratory Effort Respiratory Depth Respiratory Pattern Blood Pressure 121/74 H 137/74 H Blood Pressure Mean 89 95 Pulse Ox 90 96 94 Oxygen Delivery Method Room Air 01/15/25 23:00 01/15/25 23:15 01/15/25 23:30 Temperature Temperature Source Pulse Rate 71 Respiratory Rate 13 Respiratory Effort Respiratory Depth Respiratory Pattern Blood Pressure 137/74 H 137/74 H 134/51 H Blood Pressure Mean 93 92 75 Pulse Ox 95 94 94 Oxygen Delivery Method 01/15/25 23:45 01/16/25 00:00 01/16/25 00:00 Temperature Temperature Source Pulse Rate 70 Respiratory Rate 20 H Respiratory Effort Respiratory Depth Respiratory Pattern Blood Pressure 130/62 H 132/64 H 132/64 H Blood Pressure Mean 82 86 82 Pulse Ox 97 Oxygen Delivery Method Room Air 01/16/25 00:08 01/16/25 00:15 01/16/25 00:30 Temperature Temperature Source Pulse Rate 65 68 65 Respiratory Rate 16 15 13 Respiratory Effort Respiratory Depth Respiratory Pattern Blood Pressure Blood Pressure Mean Pulse Ox 96 96 96 Oxygen Delivery Method 01/16/25 00:45 01/16/25 01:00 Temperature Temperature Source Pulse Rate 61 73 Respiratory Rate 17 15 Respiratory Effort Respiratory Depth Respiratory Pattern Blood Pressure Blood Pressure Mean Pulse Ox 94 96 Oxygen Delivery Method Weight Weight: 209 lb 10.554 oz Body Mass Index (BMI) 37.1 Physical Exam Const alert and no apparent distress Constitutional Narrative: Patient confused, slow to respond and obese with nontoxic appearance. General Appearance: cooperative Orientation / Consciousness: confused HEENT normocephalic, head/scalp atraumatic, hearing grossly normal bilaterally and moist oral mucous membranes Eyes PERRL, EOMs intact bilaterally and conjunctivae normal Eyes Narrative: Patient does have horizontal nystagmus with lateral gaze. Neck no lymphadenopathy, supple and no JVD Resp normal respiratory effort, no retractions, no use of accessory muscles and clear to auscultation bilaterally Cardio regular rate and regular rhythm GI normal to inspection, nondistended, normoactive bowel sounds, soft to palpation, non-tender and non-distended GI Narrative: Obese. Extremity normal to inspection, full ROM and no clubbing, cyanosis or edema Skin Skin Narrative: Patient has no evidence of rash, abscess, wounds or jaundice. Neuro CN's II-XII intact bilaterally, moves all extremities and no focal motor deficits Neuro Narrative: Patient A&Ox2. Obvious confusion with memory impairment. Sensorium / Orientation: awake, alert, oriented to person and oriented to place Speech: speech normal Psych Mood & Affect: depressed Results Medical Records Data Attestation: I reviewed the patient's medical records Lab / Micro Data Attestation: I reviewed the patient's lab results. 01/16/25 04:55 01/16/25 04:55 Labs: Laboratory Results - last 24 hr 01/15/25 22:10: WBC 13.2 H, RBC 3.40 L, Hgb 10.0 L, Hct 30.4 L, MCV 89.4, MCH 29.4, MCHC 32.9, RDW Std Deviation 43.7, RDW Coeff of Beatriz 13.3, Plt Count 368, MPV 10.3, Immature Gran % (Auto) 0.500, Neut % (Auto) 84.4 H, Lymph % (Auto) 10.3 L, [place] % (Auto) 4.0, Eos % (Auto) 0.2, Baso % (Auto) 0.6, Absolute Neuts (auto) 11.1 H, Absolute Lymphs (auto) 1.36, Nucleated RBC % 0, PT 13.6, INR 1.0, APTT 29.0, Sodium 142, Potassium 5.0, Chloride 110 H, Carbon Dioxide 16.1 L, Anion Gap 17 H, BUN 36 H, Creatinine 4.06 H, Estim Creat Clear Calc 15.76 L, Est GFR (MDRD) Non-Af 12 L, BUN/Creatinine Ratio 8.8 L, Glucose 139 H, Calcium 7.5 L, Troponin T High Sens 45 H 01/15/25 23:51: Lactic Acid < 1.0 01/16/25 00:12: Troponin T Hi Sens 2 Hr 46 H Imaging Radiology Impression Brain CT 01/15/25 22:00 IMPRESSION: No acute intracranial abnormality. Reading Location: [facility] Assessment & Plan Assessment/Plan (1) CVA (cerebral vascular accident): QUALIFIERS: CVA mechanism: unspecified Qualified Code(s): I63.9 - Cerebral infarction, unspecified (2) Acute alteration in mental status: (3) Facial droop: (4) Numbness: (5) Leukocytosis: QUALIFIERS: Leukocytosis type: unspecified Qualified Code(s): D72.829 - Elevated white blood cell count, unspecified (6) Kidney disease, chronic, stage V (GFR under 15 ml/min): (7) Tobacco abuse: (8) Obesity (BMI 30-39.9): (9) HTN (hypertension): QUALIFIERS: Hypertension type: unspecified Qualified Code(s): I10 - Essential (primary) hypertension (10) High cholesterol: PLAN: Plan 1. Suspected CVA; with Confusion, Right facial droop, numbness and mildly slurred speech - Admit to PCU under observation status. Give ECASA plus continue with pravastatin. Check MRI of brain without contrast to evaluate for suspected CVA. Check carotid Doppler to evaluate for stenosis. Check echocardiogram to evaluate LVEF. Check TSH, B12, Folate, HgbA1c, Lipid Profile, KENNETH and UDS to more fully evaluate for potentially reversible causes of confusion. Give acetaminophen prn for pain or fever. Give ondansetron IV for nausea and vomiting. PT/OT/ST and Case Management to consult and treat on-rounds in the AM with help appreciated in advance. Finally, [facility] consult in s appreciated. 2. Leukocytosis of 13.2K present on admission with no overt signs of infection due to suspected acute stress response complicating #1 - Noted with UA pending. Recheck CBC in AM to follow trend. 3. Severe Hyomagnesemia of 0.9 mg/dL present on admission exacerbating #1 & #2 - Give supplemental IV magnesium sulfate 2g IV once and then recheck level to confirm repletion. 4. CKD; stage V with patient currently holding off on HD with chronic anemia compounding #1 - #3 - Stable at this time with normokalemia of 5 mmol/L present on admission. Check renal indices daily to follow trend. Mildly elevated troponin likely due to CKD. Hemoglobin of 10 g/dL with MCV of 89.4 fL present on admission noted. 5. Chronic Tobacco Abuse adding to the medical complexity of #1 - #4 - Tobacco Cessation will be strongly encouraged with Nicotine patch offered to control cravings. 6. Obesity (class II); with BMI of 37.1 this admission adding to the burden of disease outlined from #1 - #5 - Weight loss will be recommended. Check TSH. This complicates her case and may hamper recovery. 7. Essential hypertension; on amlodipine - Hold scheduled antihypertensives until CVA definitively ruled out on MRI to allow for 'permissive hypertension'. 8. Hyperlipidemia; previously on rosuvastatin - Give pravastatin and check Lipid Profile as outlined in #1. Stop pravastatin if muscle pain recurs. 8. Hypothyroidism; on levothyroxine - Maintain levothyroxine and check TSH. 10. History of colon polyps (2021) - Noted. 11. GERD with dyspepsia; on omeprazole daily prn plus hyoscyamine sulfate q. 6 hours prn - Resume current therapy. 12. OA; on prn tramadol q. 6 hours - Hold tramadol with confusion on admission in favor of acetaminophen as outlined in #1. 13. DVT prophylaxis - Heparin 5,000U sq TID plus SCD's. Total time: Approximately (but not less than) 70 minutes. Charges/Coding Visit Charges OBSV E&M: 35148 Observ/hosp same date L2
[2025-01-16 01:11] LABS: Mucous, Urine 0 SEEN /hpf (<or=2+); Red Blood Cells-Urine 0 SEEN /hpf (0-5); Squamous Epithelial Cells - UA 0 SEEN /hpf (5-10)
[2025-01-16 01:12] LABS: Color, Urine Straw (Yellow); Glucose, Dipstick Normal (Normal); Ketone-Dipstick Negative (Negative); Leukocyte Esterase-Dipstick Negative /ul (Negative); Nitrite-Dipstick Negative (Negative); Occult Blood-Urine 150 /ul (Negative); Protein-Dipstick 100 mg/dl (Negative); Specific Gravity, Urine 1.015 (1.002-1.030); Urine Bilirubin Dipstick Negative (Negative)
--- NOTE | 2025-01-16 01:53 | MRI_ITS ---
PROCEDURE: BRAIN WITHOUT CONTRAST 01/16/2025 REASON FOR EXAM: SUSPECTED CVA WITH CONFUSION AND RIGHT FACIAL DROO TECHNIQUE: Procedure Code: MRIBR Modality: MR Procedure: BRAIN WITHOUT CONTRAST Multiplanar and multisequence images were obtained. COMPARISON: CT head January 15, 2025. FINDINGS: Brain: Mild cerebral atrophy and chronic periventricular white matter disease. No restricted diffusion. No hemorrhage. No mass-effect or midline shift. The orbits are unremarkable. Ventricles: Normal. Major Intracranial Vessels: Unremarkable. Sinuses: Clear. Mastoids: Clear. MRI/Brain without Contrast IMPRESSION: No acute brain abnormalities. Foci of hyperintense signal on T2 and FLAIR in the white matter which are nonsp ecific but most likely due to chronic small-vessel ischemia. Reading Location: [id number]
--- NOTE | 2025-01-16 01:53 | CDU_ITS ---
Reason For Study Reason For Study: Syncope Rt. Velocities/BP Lt. Velocities/BP Prox CCA 66.9/13.1 cm/sec. Prox CCA 84.2/16.7 cm/sec. Mid CCA 67.4/18.1 cm/sec. Mid CCA 79.3/16.7 cm/sec. Dist CCA 91.1/23.6 cm/sec. Dist CCA 92.8/26.5 cm/sec. Prox ICA 111.2/29.0 cm/sec. Prox ICA 148.8/54.6 cm/sec. Mid ICA 96.6/29.0 cm/sec. Mid ICA 172.6/48.2 cm/sec. Dist ICA 76.1/28.1 cm/sec. Dist ICA 133.7/35.2 cm/sec. Rt. ICA/CCA = 1.6. Lt. ICA/CCA = 2.2. Prox ECA 97.6/10.6 cm/sec. Prox ECA 97.7/21.6 cm/sec. Rt. Vert. 74.6/18.6 cm/sec. Lt. Vert. 31.1/10.1 cm/sec. Right Extracranial There is heterogeneous, irregular atherosclerotic plaque noted in the right common carotid artery. There is heterogeneous, irregular atherosclerotic plaque noted in the right internal carotid artery. There is heterogeneous, irregular atherosclerotic plaque noted in the right external carotid artery. Antegrade flow is noted in the right vertebral artery. Left Extracranial There is heterogeneous, smooth atherosclerotic plaque noted in the left common carotid artery. There is heterogeneous, irregular atherosclerotic plaque noted in the left internal carotid artery. There is heterogeneous, irregular atherosclerotic plaque noted in the left external carotid artery. Abnormal Waveform Morphology noted. Procedure Carotid Duplex [id number]. This is a Carotid Duplex examination using B-mode, color flow and specral Doppler. The exam was diagnostic. Exam performed in department. VL/Carotid Duplex Ultrasound Interpretation Summary Mild (<50%) stenosis right extracranial internal carotid. Moderate (50-69%) stenosis left extracranial internal carotid. Patent and antegrade vertebrals bilaterally. Ordering Physician: Brian Washburn Performed By: Alfa Tsang RVT
--- NOTE | 2025-01-16 01:53 | ECHOD_ITS ---
Reason For Study Reason For Study: TIA/CVA Procedure This was a 2D Doppler, Color Flow transthoracic echocardiogram. Exam performed portable in patient room. Left Ventricle Normal LV size. Mild concentric left ventricular hypertrophy. The left ventricular ejection fraction is 65 %. Stage 1 diastolic dysfunction. Right Ventricle Normal right ventricle. Atria The left atrium is mildly enlarged. Normal right atrium. Bubble contrast study is negative for PFO/ASD. Mitral Valve Trivial mitral valve insufficiency. Tricuspid Valve Mild tricuspid valve insufficiency. Normal pulmonary artery pressure. Aortic Valve Calcified aortic valve. Moderate aortic valve stenosis. Mean peak gradient 24 mmHg. Mild aortic valve regurgitation. Pulmonic Valve The pulmonic valve is not well visualized. Trivial pulmonic valve insufficiency. Great Vessels Normal sized aortic root. Pericardium/Pleural No pericardial effusion. Medication Performed a rapid injection of agitated mix of 9 cc saline and 1cc air to assess for atrial septal defect. MMode/2D Measurements & Calculations LVIDd: 5.4 cm IVSd: 1.4 cm LVOT diam: 2.0 cm LVIDs: 3.3 cm LVPWd: 1.3 cm RVDd: 3.7 cm FS: 38.8 % LVOT area: 3.3 cm2 Ao root diam: 3.0 cm LVAd ap4: 36.9 cm2 SV(MOD-sp4): 67.2 ml LVLd ap4: 8.9 cm SI(MOD-sp4): 34.6 ml/m2 EDV(MOD-sp4): 124.5 ml EDV(sp4-el): 130.5 ml LVAs ap4: 21.4 cm2 LVLs ap4: 7.0 cm ESV(MOD-sp4): 57.3 ml ESV(sp4-el): 55.6 ml EF(MOD-sp4): 54.0 % EF(sp4-el): 57.4 % SV(sp4-el): 75.0 ml LA dimension(2D): 4.1 cm Time Measurements MV dec time: 0.19 sec Doppler Measurements & Calculations MV E max sajan: 77.3 cm/sec Ao V2 max: 322.9 cm/sec MV A max sajan: 89.4 cm/sec MV dec slope: 403.5 cm/sec2 Ao max P.9 mmHg MV E/A: 0.86 Ao V2 mean: 233.7 cm/sec Ao mean P.3 mmHg Ao V2 VTI: 84.1 cm AV (velocity ratio): 0.39 ALEJANDRINA(I,D): 1.3 cm2 ALEJANDRINA(V,D): 1.2 cm2 LV V1 max: 113.1 cm/sec SV(LVOT): 107.2 ml PA V2 max: 112.2 cm/sec LV V1 max P.1 mmHg PA V2 mean: 78.7 cm/sec LV V1 mean P.5 mmHg LV V1 mean: 88.6 cm/sec LV V1 VTI: 32.6 cm TR max sajan: 241.5 cm/sec TR max P.3 mmHg ECHO/Echo Complete Interpretation Summary Mild concentric left ventricular hypertrophy. The left ventricular ejection fraction is 65 %. Stage 1 diastolic dysfunction. The left atrium is mildly enlarged. Bubble contrast study is negative for PFO/ASD. Mild tricuspid valve insufficiency. Calcified aortic valve. Moderate aortic valve stenosis. Mean peak gradient 24 m mHg. Mild aortic valve regurgitation. Ordering Physician: Brian Washburn Performed By: Keven Ashton RCS
[2025-01-16 02:41] LABS: Ionized Calcium Order 1.06
--- OUTSIDE RECORDS SUMMARY | 2025-01-16 02:46 | XMS RPT_ITS | CCD ---
Author Organization [facility] Care Team Providers Care Edge Roller Name Role Phone Camille Goodman Primary Care Provider [phone] SALONI HUSSEIN Attending Unavailable PROVIDER, UNKNOWN Referring [...] Nausea And Vomiting, Unknown, Hives, GI Upset [place] (20 sources) Codeine; Translations: [codeine] Drug Allergy 10-18-19 Other (See Comments), Unknown, Cough, Hives, Nausea And Vomiting, GI Upset [place] (20 sources) HYDROmorphone; Translations: [hydromorphone] Drug Allergy 10-18-19 Nausea And Vomiting, Other: See Comments [place] (20 sources) Morphine; Translations: [morphine] Drug Allergy 10-18-19 Nausea And Vomiting, Unknown, Hives [place] (20 sources) moxifloxacin; Translations: [moxifloxacin] Drug Allergy 10-18-19 Other (See Comments), Nausea And Vomiting, Hives, Vomiting [place] (15 sources) Penicillins; Translations: [PENICILLINS] Propensity to adverse reactions to drug 10-18-19 Other (See Comments) [place] (7 sources) HYDROmorphone; Translations: [HYDROMORPHONE (BULK)] Drug Allergy 10-18-19 Unknown [facility] (7 sources) moxifloxacin; Translations: [MOXIFLOXACIN HCL] Drug Allergy 10-18-19 18 Unknown [facility] (2 sources) Penicillins Drug Intolerance 10-18-19 18 Unknown [facility] (5 sources) Penicillins Drug Intolerance 10-18-19 Hives, Nausea Only [facility] (1 source) Acetaminophen / oxyCODONE; Translations: [acetaminophen-ox ycodone] Drug Allergy [facility] (1 source) Penicillin; Translations: [penicillins] Drug Allergy [facility] (3 sources) Acetaminophen; Translations: [ACETAMINOPHEN] Drug Allergy 02-02-20 [facility] (1 source) Codeine Drug Allergy 02-02-20 [facility] (1 source) HYDROmorphone Drug Allergy 02-02-20 [facility] (1 source) Morphine Drug Allergy 02-02-20 [facility] (1 source) moxifloxacin Drug Allergy 02-02-20 [facility] (3 sources) oxyCODONE; Translations: [OXYCODONE] Drug Allergy 02-02-20 [facility] (1 source) Penicillins Drug allergy (disorder) 02-02-20 [facility] (3 sources) Penicillins Drug Intolerance 10-18-19 Unknown [facility] (2 sources) Acetaminophen Drug Allergy 02-02-20 GI Upset [facility] (2 sources) oxyCODONE Drug Allergy 02-02-20 GI Upset [facility] Medications Current Medications Medication Drug Class(es) Dates [...] First dose on Tue12/11/18 at 0900 calcitriol 0.40733 mg oral capsule (9 sources) Vitamin D3 [...] other week vitamin D (ERGOCALCIFEROL) 1.25 MG (03535 UT) CAPS capsule 1 CAPSULE ORALLY EVERY [...] on above: Take 1 capsule by [facility] twice daily. ondansetron 4 mg oral tablet [...] on above: Take 2 tablets by mo [facility] once daily. 2 ml fentaNYL 0.05 mg/ml [...] mg in 50 mL IVPB premix nystatin 604765 unt/ml oral suspension (2 sources) Polyene Antifungal Start: 09-27-2022 End: 09-28-2022 nystatin (Mycostatin) 714362 UNIT/ML suspension 500,000 Units ondansetron ODT (Zofran-ODT) [...] PROTONIX) tablet 40 mg polyethylene glycol 3350 04546 mg powder for oral solution (5 sources) [...] sodium chloride bolus sodium zirconium cyclosilica te 24741 mg powder for oral suspension (2 sources) [...] Test Name Value Interpretation Reference Range Facility [facility] 01-10-2025 CNPN Telephone ([id number]) YOANCORTNEYCATARINA Barragan ([id number]) 1960 F Date Time Provider Department 01/10/25 [...] Status:Closed by JUSTO ALONZO on 01/14/25 Normal [facility] Basic metabolic 2000 panelon 12-25-2024 Anion gap [Moles/Vol] 16 mmol/L High 8-15 [facility] Comment on above: Order Comment: Speci men Type: BLOOD SPECIMEN Ordering Facility: [facility] [place] Address: [address] [place] [address] Performed By: #### 2 4321-2 #### [facility] CLIA [id number] [address] [place] [address] [place] Calcium [Mass/Vol] 8.1 mg/dL Low 8.5-10.2 [facility] Comment on above: Order Comment: Speci men Type: BLOOD SPECIMEN Ordering Facility: [facility] Address: [address] [place] [address] Performed By: #### 2 4321-2 #### [facility] CLIA [id number] [address] [place], [place] [address] [place] Chloride [Moles/Vol] 100 mmol/L Normal 98-107 [facility] Comment on above: Order Comment: Speci men Type: BLOOD SPECIMEN Ordering Facility: [facility] [place] Address: [address] [facility] [place] [address] Performed By: #### 2 4321-2 #### [facility] CLIA [id number] [address] [address] [place] CO2 [Moles/Vol] 17 mmol/L Low 22-30 [facility] Comment on above: Order Comment: Speci men Type: BLOOD SPECIMEN Ordering Facility: [facility] [place] Address: [address] [place] [address] Performed By: #### 2 4321-2 #### [facility] CLIA [id number] [address] [address] [place] Creatinine [Mass/Vol] 3.94 mg/dL High 0.58-0.96 [facility] Comment on above: Order Comment: Speci men Type: BLOOD SPECIMEN Ordering Facility: Address: [address] [place], [place] [address] Performed By: #### 2 4321-2 #### [facility] CLIA [id number] [address] [place] [id number] [place] eGFRcr SerPlBld CKD-EPI 2020 12 mL/min/1.73m??? Low >=60 [facility] Comment on above: Order Comment: Speci men Type: BLOOD SPECIMEN Ordering Facility: Address: [address] [place], [place] [address] Result Comment: Claudia mated Glomerular Filtration Rate [...] GFR. Performed By: #### 2 4321-2 #### [facility] CLIA [id number] [address] [address] [place] Glucose [Mass/Vol] 83 mg/dL Normal 74-99 [facility] Comment on above: Order Comment: Speci men Type: BLOOD SPECIMEN Ordering Facility: [address] Address: [facility] [place] [address] Result Comment: The [place] Diabetes Association (ADA) provides guidance for cutoff [...] Standards of Medical Care in Diabetes 2016, [place] [employer]. Diabetes Care. 2016.39(Suppl 1). Performed By: #### 2 4321-2 #### [facility] CLIA [id number] [facility] [place] [id number] [place] Potassium [Moles/Vol] 4.8 mmol/L Normal 3.7-5.1 [facility] Comment on above: Order Comment: Speci men Type: BLOOD SPECIMEN Ordering Facility: [address] Address: [facility] [place] [place] [address] Performed By: #### 2 4321-2 #### [facility] CLIA [id number] [address] [address] [place] Sodium [Moles/Vol] 133 mmol/L Low 136-144 [facility] Comment on above: Order Comment: Speci men Type: BLOOD SPECIMEN Ordering Facility: [address] Address: [facility] [place] [address] Performed By: #### 2 4321-2 #### [facility] CLIA [id number] [address] [place] [id number] [place] Urea nitrogen [Mass/Vol] 34 mg/dL High 7-21 [facility] Comment on above: Order Comment: Speci men Type: BLOOD SPECIMEN Ordering Facility: [address] Address: [facility] [place] [address] Performed By: #### 2 4321-2 #### [facility] CLIA [id number] [address] [place] [id number] [place] Prot/Creat Uron 12-25-2024 Protein/Creatinine (U) [Mass ratio] 1.98 mg/mg High <0.15 [facility] Comment on above: Order Comment: Speci men Type: BLOOD SPECIMEN Ordering Facility: [facility] Address: [address] [place] [address] Result Comment: Adul t Proteinuria Categories: <0.15 mg/mg is considered normal to mildly increased 0.15 - 0.50 mg/mg is considered moderately increased >0.50 mg/mg is considered severely increased KDIGO. (2013). KDIGO 2012 Clinical Practice Guideline for the Evaluation and Management of Chronic Kidney Disease. Official Journal of the International Society of Nephrology, 3(1), 1-150. Performed By: #### 2 4321-2 #### [facility] CLIA [id number] [address] [place] [address] [place] Protein/Creatinine (U) [Mass ratio]on 12-25-2024 Creatinine (U) [Mass/Vol] 24.8 mg/dL Normal 20.0-300.0 [facility] Comment on above: Order Comment: Speci men Type: BLOOD SPECIMEN Ordering Facility: [facility] Address: [address] [place] [address] Performed By: #### 2 4321-2 #### [facility] CLIA [id number] [address] [place], [place] [address] [place] Protein (U) [Mass/Vol] 49 mg/dL High 0-20 [facility] Comment on above: Order Comment: Speci men Type: BLOOD SPECIMEN Ordering Facility: [facility] Address: [address] [place] [address] Performed By: #### 2 4321-2 #### [facility] CLIA [id number] [address] [place], [place] [address] [place] 25-HYDROXY D2+D3on 06-26-202 5 25-hydroxyvitamin D3 [Mass/Vol] 34.2 ng/mL Normal 30.0-100.0 [facility] Comment on above: Order Comment: Speci men Type: BLOOD SPECIMEN Ordering Facility: Address: [address] [place] [id number] Result Comment: Defi cient: <20.1 ng/mL Insufficient: 20.1 - 29.9 ng/mL Sufficient: 30.0 - 100.0 ng/mL Toxic: >150.0 ng/mL Reference: Devyn MEI, N Engl J Med (2007)357:266-81 This test was developed and its performance characteristics determined by the Pathology and Laboratory Medicine [place] at the [facility]. The U.S. Food and Drug Administration has not approved or cleared this test, however, FDA clearance or approval is not currently required for clinical use. Performed By: #### 2 731-8, 50628-7, 70410-5 #### [facility] CLIA [id number] [address] [place] [address] [place] Vitamin D2 [Mass/Vol] 34.2 ng/mL Normal [facility] Comment on above: Order Comment: Speci men Type: BLOOD SPECIMEN Ordering Facility: Address: [address] [place] [address] Performed By: #### 2 731-8, , 12090-3 #### [facility] CLIA [id number] [address] [place] [address] [place] Vitamin D3 [Mass/Vol] ng/mL Normal [facility] Comment on above: Order Comment: Speci men Type: BLOOD SPECIMEN Ordering Facility: Address: [address] [place] [id number] Performed By: #### 2 731-8, , 00486-8 #### [facility] CLIA [id number] [address] [address] [place] Albumin SerPl-mCncon 025 Albumin [Mass/Vol] 4.3 g/dL Normal 3.9-4.9 [facility] Comment on above: Order Comment: Speci men Type: BLOOD SPECIMEN Ordering Facility: [facility] Address: [facility] [place] [address] Performed By: #### 2 777-1, 1751-7 #### [facility] CLIA [id number] [address] [place] [address] [place] Basic metabolic 2000 panelon 10-18-2024 Anion gap [Moles/Vol] 15 mmol/L Normal 8-15 [facility] Comment on above: Order Comment: Speci men Type: BLOOD SPECIMEN Ordering Facility: [facility] Address: [facility] [place] [address] Performed By: #### 2 731-8, 74654-9, 50203-5 #### [facility] CLIA [id number] [address] [place] [address] [place] Calcium [Mass/Vol] 8.9 mg/dL Normal 8.5-10.2 [facility] Comment on above: Order Comment: Speci men Type: BLOOD SPECIMEN Ordering Facility: [facility] Address: [facility] [place] [address] Performed By: #### 2 731-8, 21493-5, 21783-0 #### [facility] CLIA [id number] [address] [place] [address] [place] Chloride [Moles/Vol] 102 mmol/L Normal 98-107 [facility] Comment on above: Order Comment: Speci men Type: BLOOD SPECIMEN Ordering Facility: [facility] Address: [address] [place] [address] Performed By: #### 2 731-8, 37651-1, 08517-1 #### [facility] CLIA [id number] [address] [place] [id number] [place] CO2 [Moles/Vol] 18 mmol/L Low 22-30 [facility] Comment on above: Order Comment: Speci men Type: BLOOD SPECIMEN Ordering Facility: [facility] Address: [address] [place] [address] Performed By: #### 2 731-8, 20719-5, 70777-3 #### [facility] CLIA [id number] [address] [place] [phone] [place] Creatinine [Mass/Vol] 3.87 mg/dL High 0.58-0.96 [facility] Comment on above: Order Comment: Speci men Type: BLOOD SPECIMEN Ordering Facility: [facility] Address: [address] [place] [address] Performed By: #### 2 731-8, , #### [facility] CLIA [id number] [address] [place] [address] [place] Creatinine and Glomerular filtration rate.predicted panel (S/P/Bld) 13 mL/min/1.73m??? Low >=60 [facility] Comment on above: Order Comment: Speci men Type: BLOOD SPECIMEN Ordering Facility: [facility] [place] Address: [address] [place] [address] Result Comment: Claudia mated Glomerular Filtration Rate [...] actual GFR. Performed By: #### 2 731-8, 93046-1, 22445-3 #### [facility] CLIA [id number] [address] [place] [phone] [place] Glucose [Mass/Vol] 96 mg/dL Normal 74-99 [facility] Comment on above: Order Comment: Speci men Type: BLOOD SPECIMEN Ordering Facility: [facility] Address: [address] [place] [address] Result Comment: The [place] Diabetes Association (ADA) provides guidance for cutoff [...] Standards of Medical Care in Diabetes 2016, [place] [employer]. Diabetes Care. 2016.39(Suppl 1). Performed By: #### 2 731-8, 23221-6, 66196-9 #### [facility] CLIA [id number] [address] [place] [address] [place] Potassium [Moles/Vol] 4.7 mmol/L Normal 3.7-5.1 [facility] Comment on above: Order Comment: Speci men Type: BLOOD SPECIMEN Ordering Facility: [facility] Address: [address] [place] [address] Performed By: #### 2 731-8, , 53919-7 #### [facility] CLIA [id number] [address] [place] [address] [place] Sodium [Moles/Vol] 135 mmol/L Low 136-144 [facility] Comment on above: Order Comment: Speci men Type: BLOOD SPECIMEN Ordering Facility: [facility] Address: [address] [place] [address] Performed By: #### 2 731-8, , 36673-9 #### [facility] CLIA [id number] [address] [place] [id number] [place] Urea nitrogen [Mass/Vol] 31 mg/dL High 7- [facility] Comment on above: Order Comment: Yasi men Type: BLOOD SPECIMEN Ordering Facility: [facility] [place] Address: [address] [place] [address] Performed By: #### 2 731-8, 04584-6, 03945-3 #### [facility] CLIA [id number] [address] [place], [place] [address] [place] CBC panel Auto (Bld)on 10-18 Erythrocyte distribution width (RBC) [Ratio] 13.4 % Normal 11.5-15.0 [facility] Comment on above: Order Comment: Speci men Type: BLOOD SPECIMEN Ordering Facility: [facility] [place] Address: [facility] [place] [address] Performed By: #### 2 731-8, 34665-7, 75605-9 #### [facility] CLIA [id number] [address] [place] [address] [place] Hematocrit (Bld) [Volume fraction] 30.7 % Low 36.0-46.0 [facility] Comment on above: Order Comment: Speci men Type: BLOOD SPECIMEN Ordering Facility: [facility] [place] Address: [facility] [place] [address] Performed By: #### 2 731-8, 23070-5, 12348-2 #### [facility] CLIA [id number] [address] [place] [address] [place] Hemoglobin (Bld) [Mass/Vol] 9.7 g/dL Low 11.5-15.5 [facility] Comment on above: Order Comment: Speci men Type: BLOOD SPECIMEN Ordering Facility: [facility] Address: [facility] [place] [address] Performed By: #### 2 731-8, 28883-8, 21270-0 #### [facility] CLIA [id number] [address] [place] [address] [place] MCH (RBC) [Entitic mass] 28.6 pg Normal 26.0-34.0 [facility] Comment on above: Order Comment: Speci men Type: BLOOD SPECIMEN Ordering Facility: [facility] Address: [address] [place] [address] Performed By: #### 2 731-8, , 00491-4 #### [facility] CLIA [id number] [address] [place] [address] [place] MCHC (RBC) [Mass/Vol] 31.6 g/dL Normal 30.5-36.0 [facility] Comment on above: Order Comment: Speci men Type: BLOOD SPECIMEN Ordering Facility: [facility] Address: [facility] [place] [address] Performed By: #### 2 731-8, , 39666-9 #### [facility] CLIA [id number] [address] [place] [address] [place] MCV (RBC) [Entitic vol] 90.6 fL Normal 80.0-100.0 [facility] Comment on above: Order Comment: Speci men Type: BLOOD SPECIMEN Ordering Facility: [facility] Address: [facility] [place] [address] Performed By: #### 2 731-8, , 68502-8 #### [facility] CLIA [id number] [address] [place] [address] [place] Nucleated RBC (Bld) [#/Vol] 10*3/uL Normal <0.01 [facility] Comment on above: Order Comment: Speci men Type: BLOOD SPECIMEN Ordering Facility: Address: [facility] [place] [address] Performed By: #### 2 731-8, , 27116-2 #### [facility] CLIA [id number] [address] [place] [address] [place] Platelet mean volume (Bld) [Entitic vol] 10.6 fL Normal 9.0-12.7 [facility] Comment on above: Order Comment: Speci men Type: BLOOD SPECIMEN Ordering Facility: Address: [address] [place] [address] Performed By: #### 2 731-8, , 03270-1 #### [facility] CLIA [id number] [address] [address] [place] Platelets (Bld) [#/Vol] 344 10*3/uL Normal 150-400 [facility] Comment on above: Order Comment: Speci men Type: BLOOD SPECIMEN Ordering Facility: Address: [address] [place] [address] Performed By: #### 2 731-8, , #### [facility] CLIA [id number] [address] [address] [place] RBC (Bld) [#/Vol] 3.39 10*6/uL Low 3.90-5.20 [facility] Comment on above: Order Comment: Speci men Type: BLOOD SPECIMEN Ordering Facility: Address: [address] [place] [address] Performed By: #### 2 731-8, , 49406-0 #### [facility] CLIA [id number] [address] [place] [address] [place] WBC (Bld) [#/Vol] 10.37 10*3/uL Normal 3.70-11.00 [facility] Comment on above: Order Comment: Speci men Type: BLOOD SPECIMEN Ordering Facility: Address: [address] [place] [address] Performed By: #### 2 731-8, , 09535-7 #### [facility] CLIA [id number] [address] [place] [address] [place] PTH-Intact SerPl-mCncon - Parathyrin.intact [Mass/Vol] 1158 pg/mL High 15-65 [facility] Comment on above: Order Comment: Speci men Type: BLOOD SPECIMEN Ordering Facility: Address: [address] [place] [address] Performed By: #### 2 731-8, 14362-3, 74360-0 #### [facility] CLIA [id number] [address] [place], [place] [address] [place] Phosphate SerPl-mCncon 10-18 Phosphate [Mass/Vol] 5.4 mg/dL High 2.7-4.8 [facility] Comment on above: Order Comment: Speci men Type: BLOOD SPECIMEN Ordering Facility: [facility] [place] Address: [address] [place] [address] Performed By: #### 2 777-1, 1751-7 #### [facility] CLIA [id number] [address] [place] [address] [place] Prot/Creat Uron 10-18-2024 Protein/Creatinine (U) [Mass ratio] 2.37 mg/mg High <0.15 [facility] Comment on above: Order Comment: Speci men Type: BLOOD SPECIMEN Ordering Facility: [facility] [place] Address: [address] [place] [address] Result Comment: Adul t Proteinuria Categories: <0.15 mg/mg is considered normal to mildly increased 0.15 - 0.50 mg/mg is considered moderately increased >0.50 mg/mg is considered severely increased KDIGO. (2013). KDIGO 2012 Clinical Practice Guideline for the Evaluation and Management of Chronic Kidney Disease. Official Journal of the International Society of Nephrology, 3(1), 1-150. Performed By: #### 2 731-8, 68501-3, 16350-5 #### [facility] CLIA [id number] [address] [place] [address] [place] Protein/Creatinine (U) [Mass ratio]on 10-18-2024 Creatinine (U) [Mass/Vol] 21.1 mg/dL Normal 20.0-300.0 [facility] Comment on above: Order Comment: Speci men Type: BLOOD SPECIMEN Ordering Facility: [facility] Address: [facility] [place] [place] [address] Performed By: #### 2 731-8, , 85772-6 #### [facility] CLIA [id number] [address] [place] [id number] [place] Protein (U) [Mass/Vol] 50 mg/dL High 0-20 [facility] Comment on above: Order Comment: Speci men Type: BLOOD SPECIMEN Ordering Facility: Address: [address] [place] [address] Performed By: #### 2 731-8, , 17099-9 #### [facility] CLIA [id number] [address] [place] [id number] [place] 25([place])D3 SerPl-[facility] 2024 25-hydroxyvitamin D3 [Mass/Vol] 20.5 ng/mL Low 31.0-80.0 [facility] Comment on above: Order Comment: Speci men Type: BLOOD SPECIMEN Ordering Facility: Address: [address] [place] [address] Performed By: #### 2 4321-2 #### [facility] [place] [id number] [address] [place], [place] [address] [place] Albumin SerPl-mCncon 025 Albumin [Mass/Vol] 4.2 g/dL Normal 3.9-4.9 [facility] Comment on above: Order Comment: Speci men Type: BLOOD SPECIMEN Ordering Facility: Address: [facility] [place] [address] Performed By: #### 2 731-8, , 37090-1 #### [facility] CLIA [id number] [address] [place], [place] [address] [place] Basic metabolic 2000 panelon 10-13-2024 Anion gap [Moles/Vol] 15 mmol/L Normal 8-15 [facility] Comment on above: Order Comment: Speci men Type: BLOOD SPECIMEN Ordering Facility: Address: [address] [place] [address] Performed By: #### 2 731-8, , 17850-4 #### [facility] CLIA [id number] [address] [place] [address] [place] Calcium [Mass/Vol] 9.3 mg/dL Normal 8.5-10.2 [facility] Comment on above: Order Comment: Speci men Type: BLOOD SPECIMEN Ordering Facility: Address: [facility] [place] [address] Performed By: #### 2 731-8, , 21946-8 #### [facility] CLIA [id number] [address] [place] [address] [place] Chloride [Moles/Vol] 103 mmol/L Normal 98-107 [facility] Comment on above: Order Comment: Speci men Type: BLOOD SPECIMEN Ordering Facility: Address: [facility] [place] [id number] Performed By: #### 2 731-8, , 21431-8 #### [facility] CLIA [id number] [address] [place] [address] [place] CO2 [Moles/Vol] 17 mmol/L Low 22-30 [facility] Comment on above: Order Comment: Speci men Type: BLOOD SPECIMEN Ordering Facility: Address: [address] [place] [address] Performed By: #### 2 731-8, , 25703-6 #### [facility] CLIA [id number] [address] [place] [id number] [place] Creatinine [Mass/Vol] 3.86 mg/dL High 0.58-0.96 [facility] Comment on above: Order Comment: Speci men Type: BLOOD SPECIMEN Ordering Facility: Address: [address] [place] [address] Performed By: #### 2 731-8, , 83624-9 #### [facility] CLIA [id number] [facility] [place] [address] [place] Creatinine and Glomerular filtration rate.predicted panel (S/P/Bld) 13 mL/min/1.73m??? Low >=60 [facility] Comment on above: Order Comment: Andres luna Type: BLOOD SPECIMEN Ordering Facility: [address] Address: [address] [place] [address] Result Comment: Claudia mated Glomerular Filtration Rate [...] actual GFR. Performed By: #### 2 731-8, 52458-3, 16617-8 #### [facility] CLIA [id number] [address] [place] [address] [place] Glucose [Mass/Vol] 92 mg/dL Normal 74-99 [facility] Comment on above: Order Comment: Andres luna Type: BLOOD SPECIMEN Ordering Facility: [address] Address: [address] [place], [place] [address] Result Comment: The [place] Diabetes Association (ADA) provides guidance for cutoff [...] Standards of Medical Care in Diabetes 2016, [place] [employer]. Diabetes Care. 2016.39(Suppl 1). Performed By: #### 2 731-8, 52459-1, 86075-8 #### [facility] CLIA [id number] [address] [place] [address] [place] Potassium [Moles/Vol] 5.5 mmol/L High 3.7-5.1 [facility] Comment on above: Order Comment: Speci men Type: BLOOD SPECIMEN Ordering Facility: Address: [facility] [place] [place] [address] Performed By: #### 2 731-8, 08991-6, 01723-9 #### [facility] CLIA [id number] [address] [place] [address] [place] Sodium [Moles/Vol] 135 mmol/L Low 136-144 [facility] Comment on above: Order Comment: Speci men Type: BLOOD SPECIMEN Ordering Facility: Address: [facility] [place] [place] [address] Performed By: #### 2 731-8, 73427-5, 79943-5 #### [facility] CLIA [id number] [address] [place] [address] [place] Urea nitrogen [Mass/Vol] 32 mg/dL High - [facility] Comment on above: Order Comment: Speci men Type: BLOOD SPECIMEN Ordering Facility: Address: [facility] [place] [place] [address] Performed By: #### 2 731-8, 66426-4, 65644-1 #### [facility] CLIA [id number] [address] [place] [address] [place] CBC panel Auto (Bld)on 10-13 Erythrocyte distribution width (RBC) [Ratio] 13.2 % Normal 11.5-15.0 [facility] Comment on above: Order Comment: Speci men Type: BLOOD SPECIMEN Ordering Facility: Address: [facility] [place] [place] [address] Performed By: #### 5 8410-2 #### [facility] CLIA [id number] [address] [place] [address] [place] Hematocrit (Bld) [Volume fraction] 31.6 % Low 36.0-46.0 [facility] Comment on above: Order Comment: Speci men Type: BLOOD SPECIMEN Ordering Facility: [facility] Address: [address] [place] [address] Performed By: #### 5 8410-2 #### [facility] CLIA [id number] [address] [place] [id number] [place] Hemoglobin (Bld) [Mass/Vol] 10.1 g/dL Low 11.5-15.5 [facility] Comment on above: Order Comment: Speci men Type: BLOOD SPECIMEN Ordering Facility: [facility] Address: [address] [place] [address] Performed By: #### 5 8410-2 #### [facility] CLIA [id number] [facility] [place] [id number] [place] MCH (RBC) [Entitic mass] 28.9 pg Normal 26.0-34.0 [facility] Comment on above: Order Comment: Speci men Type: BLOOD SPECIMEN Ordering Facility: [facility] Address: [address] [id number] Performed By: #### 5 8410-2 #### [facility] CLIA [id number] [address] [place], [place] [address] [place] MCHC (RBC) [Mass/Vol] 32.0 g/dL Normal 30.5-36.0 [facility] Comment on above: Order Comment: Speci men Type: BLOOD SPECIMEN Ordering Facility: [facility] Address: [address] [place] [address] Performed By: #### 5 8410-2 #### [facility] CLIA [id number] [address] [place], [place] [address] [place] MCV (RBC) [Entitic vol] 90.3 fL Normal 80.0-100.0 [facility] Comment on above: Order Comment: Speci men Type: BLOOD SPECIMEN Ordering Facility: [facility] Address: [address] [place] [address] Performed By: #### 5 8410-2 #### [facility] CLIA [id number] [address] [place], [place] [address] [place] Nucleated RBC (Bld) [#/Vol] 10*3/uL Normal <0.01 [facility] Comment on above: Order Comment: Speci men Type: BLOOD SPECIMEN Ordering Facility: Address: [address] [place] [address] Performed By: #### 5 8410-2 #### [facility] CLIA [id number] [address] [place], [place] [address] [place] Platelet mean volume (Bld) [Entitic vol] 10.5 fL Normal 9.0-12.7 [facility] Comment on above: Order Comment: Speci men Type: BLOOD SPECIMEN Ordering Facility: Address: [address] [place] [address] Performed By: #### 5 8410-2 #### [facility] CLIA [id number] [address] [place] [address] [place] Platelets (Bld) [#/Vol] 380 10*3/uL Normal 150-400 [facility] Comment on above: Order Comment: Speci men Type: BLOOD SPECIMEN Ordering Facility: Address: [address] [place] [address] Performed By: #### 5 8410-2 #### [facility] CLIA [id number] [address] [place] [address] [place] RBC (Bld) [#/Vol] 3.50 10*6/uL Low 3.90-5.20 [facility] Comment on above: Order Comment: Speci men Type: BLOOD SPECIMEN Ordering Facility: Address: [address] [place] [address] Performed By: #### 5 8410-2 #### [facility] CLIA [id number] [address] [place], [place] [address] [place] WBC (Bld) [#/Vol] 9.57 10*3/uL Normal 3.70-11.00 [facility] Comment on above: Order Comment: Speci men Type: BLOOD SPECIMEN Ordering Facility: Address: [address] [place], [place] [address] Performed By: #### 5 8410-2 #### [facility] CLIA [id number] [address] [place], [place] [address] [place] PTH-Intact SerPl-ncon - Parathyrin.intact [Mass/Vol] 1171 pg/mL High 15-65 [facility] Comment on above: Order Comment: Speci men Type: BLOOD SPECIMEN Ordering Facility: Address: [address] [place] [address] Performed By: #### 2 731-8, 57108-1, 26581-8 #### [facility] CLIA [id number] [address] [place], [place] [address] [place] Phosphate SerPl-mCncon 10-13 Phosphate [Mass/Vol] 4.8 mg/dL Normal 2.7-4.8 [facility] Comment on above: Order Comment: Speci men Type: BLOOD SPECIMEN Ordering Facility: Address: [address] [place], [place] [address] Performed By: #### 2 731-8, 69016-3, 90324-4 #### [facility] CLIA [id number] [address] [place], [place] [address] [place] Prot/Creat Uron 10-13-2024 Protein/Creatinine (U) [Mass ratio] 2.81 mg/mg High <0.15 [facility] Comment on above: Order Comment: Speci men Type: BLOOD SPECIMEN Ordering Facility: Address: [facility] [place] [address] Result Comment: Adul t Proteinuria Categories: <0.15 mg/mg is considered normal to mildly increased 0.15 - 0.50 mg/mg is considered moderately increased >0.50 mg/mg is considered severely increased KDIGO. (2013). KDIGO 2012 Clinical Practice Guideline for the Evaluation and Management of Chronic Kidney Disease. Official Journal of the International Society of Nephrology, 3(1), 1-150. Performed By: #### 2 731-8, 49497-5, 73450-6 #### [facility] CLIA [id number] [address] [id number] [place] Protein/Creatinine (U) [Mass ratio]on 10-13-2024 Creatinine (U) [Mass/Vol] 39.8 mg/dL Normal 20.0-300.0 [facility] Comment on above: Order Comment: Andres luna Type: BLOOD SPECIMEN Ordering Facility: [facility] Address: [address] [place] [address] Performed By: #### 2 731-8, 78400-1, 93567-5 #### [facility] CLIA [id number] [address] [place] [address] [place] Protein (U) [Mass/Vol] 112 mg/dL High 0-20 [facility] Comment on above: Order Comment: Andres luna Type: BLOOD SPECIMEN Ordering Facility: [facility] Address: [address] [place] [address] Performed By: #### 2 731-8, 41394-7, 59216-9 #### [facility] CLIA [id number] [address] [place], [place] [address] [place] CNOVon 09-28-2024 CNOV Office Visit (AGGENS3) CATARINA BOYER ([id number]) 1960 F Date Time Provider Department 09/28/24 10:30 AM Tamera CASTELAN AGGENS3 During your visit today, we recorded the following information about you: Pulse Respiration Blood pressure Weight 77/minute 20/minute 148/78 93 kg Height 1.626 m Tamera Castelan MD 09/28/2024 3:09 PM Signed Dallin Castelan MD General Surgery [address] [place] [address], [address] [place] [address] Patient referred by: No referring provider defined for this encounter. CANDE Boyer is a 64 year old White female who is referred in consideration of placing a peritoneal dialysis catheter. She is seen today with her [id number] She has CKD stage V. Her GFR [...] mass. Tender (more content not included)... Normal [facility] Basic metabolic 2000 panelon 08-09-2024 Anion gap [Moles/Vol] 17 mmol/L High 8-15 [facility] Comment on above: Order Comment: Speci men Type: BLOOD SPECIMEN Ordering Facility: Address: [address] [place] [address] Performed By: #### 2 4321-2 #### [facility] CLIA [id number] [address] [address] [place] Calcium [Mass/Vol] 8.7 mg/dL Normal 8.5-10.2 [facility] Comment on above: Order Comment: Speci men Type: BLOOD SPECIMEN Ordering Facility: Address: [address] [place] [address] Performed By: #### 2 4321-2 #### [facility] CLIA [id number] [address] [address] [place] Chloride [Moles/Vol] 103 mmol/L Normal 98-107 [facility] Comment on above: Order Comment: Speci men Type: BLOOD SPECIMEN Ordering Facility: Address: [address] [place] [address] Performed By: #### 2 4321-2 #### [facility] CLIA [id number] [address] [address] [place] CO2 [Moles/Vol] 17 mmol/L Low 22-30 [facility] Comment on above: Order Comment: Speci men Type: BLOOD SPECIMEN Ordering Facility: Address: [address] [place] [address] Performed By: #### 2 4321-2 #### [facility] CLIA [id number] [address] [address] [place] Creatinine [Mass/Vol] 3.79 mg/dL High 0.58-0.96 [facility] Comment on above: Order Comment: Speci men Type: BLOOD SPECIMEN Ordering Facility: [address] Address: [address] [place], [place] [address] Performed By: #### 2 4321-2 #### [facility] CLIA [id number] [address] [place] [address] [place] Creatinine and Glomerular filtration rate.predicted panel (S/P/Bld) 13 mL/min/1.73m??? Low >=60 [facility] Comment on above: Order Comment: Andres luna Type: BLOOD SPECIMEN Ordering Facility: [address] Address: [address] [place], [place] [address] Result Comment: Claudia mated Glomerular Filtration Rate [...] GFR. Performed By: #### 2 4321-2 #### [facility] CLIA [id number] [address] [place], [place] [address] [place] Glucose [Mass/Vol] 78 mg/dL Normal 74-99 [facility] Comment on above: Order Comment: Andres luna Type: BLOOD SPECIMEN Ordering Facility: [address] Address: [address] [place], [place] [address] Result Comment: The [place] Diabetes Association (ADA) provides guidance for cutoff [...] Standards of Medical Care in Diabetes 2016, [place] [employer]. Diabetes Care. 2016.39(Suppl 1). Performed By: #### 2 4321-2 #### [facility] CLIA [id number] [address] [place] [address] [place] Potassium [Moles/Vol] 4.3 mmol/L Normal 3.7-5.1 [facility] Comment on above: Order Comment: Speci men Type: BLOOD SPECIMEN Ordering Facility: Address: [facility] [place] [place] [address] Performed By: #### 2 4321-2 #### [facility] CLIA [id number] [address] [place] [address] [place] Sodium [Moles/Vol] 137 mmol/L Normal 136-144 [facility] Comment on above: Order Comment: Speci men Type: BLOOD SPECIMEN Ordering Facility: Address: [facility] [place] [place] [address] Performed By: #### 2 4321-2 #### [facility] CLIA [id number] [address] [place] [address] [place] Urea nitrogen [Mass/Vol] 32 mg/dL High 7-21 [facility] Comment on above: Order Comment: Speci men Type: BLOOD SPECIMEN Ordering Facility: Address: [facility] [place] [place] [address] Performed By: #### 2 4321-2 #### [facility] CLIA [id number] [address] [place] [address] [place] 25-HYDROXY D2+D3on 5 25-hydroxyvitamin D3 [Mass/Vol] 44.8 ng/mL Normal 30.0-100.0 [facility] Comment on above: Order Comment: Speci men Type: BLOOD SPECIMEN Ordering Facility: Address: [facility] [place] [address] Result Comment: Defi cient: <20.1 ng/mL Insufficient: 20.1 - 29.9 ng/mL Sufficient: 30.0 - 100.0 ng/mL Toxic: >150.0 ng/mL Reference: Devyn MEI, N Engl J Med (2007)357:266-10 This test was developed and its performance characteristics determined by the Pathology and Laboratory Medicine [place] at the [facility]. The U.S. Food and Drug Administration has not approved or cleared this test, however, FDA clearance or approval is not currently required for clinical use. Performed By: #### 2 731-8, 12597-5, 85789-7 #### [facility] CLIA [id number] [address] [place] [address] [place] Vitamin D2 [Mass/Vol] 44.8 ng/mL Normal [facility] Comment on above: Order Comment: Speci men Type: BLOOD SPECIMEN Ordering Facility: oster Address: [facility] [place] [address] Performed By: #### 2 731-8, , #### [facility] CLIA [id number] [address] [place], [place] [address] [place] Vitamin D3 [Mass/Vol] ng/mL Normal [facility] Comment on above: Order Comment: Speci men Type: BLOOD SPECIMEN Ordering Facility: oster Address: [facility] [place] [address] Performed By: #### 2 731-8, , 58898-9 #### [facility] CLIA [id number] [address] [place] [address] [place] ALBUMIN/CREATININE RATIO, UR INEon 07-30-2024 Albumin DL <= 20 mg/L (U) [Mass/Vol] 265.7 mg/L Normal [facility] Comment on above: Order Comment: Speci men Type: BLOOD SPECIMEN Ordering Facility: oster Address: [facility] [place] [address] Performed By: #### 2 731-8, , 96890-1 #### [facility] CLIA [id number] [address] [address] [place] Albumin/Creatinine (U) [Mass ratio] 1661 mg/g High <30 [facility] Comment on above: Order Comment: Speci men Type: BLOOD SPECIMEN Ordering Facility: [facility] Address: [address] [place] [address] Result Comment: Adul t Male and Female Nephrotic Criteria: <30 mg/g is considered normal to mildly increased 30-300 mg/g is considered moderately increased >300 mg/g is considered severely increased KDIGO. (2013). KDIGO 2012 Clinical Practice Guideline for the Evaluation and Management of Chronic Kidney Disease. Official Journal of the International Society of Nephrology, 3(1), 1-150. Performed By: #### 2 731-8, 39610-0, 61107-5 #### [facility] CLIA [id number] [address] [place] [address] [place] Creatinine (U) [Mass/Vol] 16.0 mg/dL Low 20.0-300.0 [facility] Comment on above: Order Comment: Andres men Type: BLOOD SPECIMEN Ordering Facility: [facility] Address: [address] [place] [address] Performed By: #### 2 731-8, 66899-5, 92902-0 #### [facility] CLIA [id number] [address] [place] [address] [place] CBC panel Auto (Bld)on 07-30 Erythrocyte distribution width (RBC) [Ratio] 14.0 % Normal 11.5-15.0 [facility] Comment on above: Order Comment: Speci men Type: BLOOD SPECIMEN Ordering Facility: [facility] Address: [address] [place], [place] [address] Performed By: #### 2 731-8, 02796-1, 95495-5 #### [facility] CLIA [id number] [address] [place] [address] [place] Hematocrit (Bld) [Volume fraction] 29.1 % Low 36.0-46.0 [facility] Comment on above: Order Comment: Speci men Type: BLOOD SPECIMEN Ordering Facility: [facility] Address: [address] [place] [address] Performed By: #### 2 731-8, 88135-6, 87717-5 #### [facility] CLIA [id number] [address] [place] [address] [place] Hemoglobin (Bld) [Mass/Vol] 9.4 g/dL Low 11.5-15.5 [facility] Comment on above: Order Comment: Speci men Type: BLOOD SPECIMEN Ordering Facility: [facility] Address: [facility] [place] [address] Performed By: #### 2 731-8, 59975-5, 49959-3 #### [facility] CLIA [id number] [address] [place] [address] [place] MCH (RBC) [Entitic mass] 29.1 pg Normal 26.0-34.0 [facility] Comment on above: Order Comment: Speci men Type: BLOOD SPECIMEN Ordering Facility: [facility] Address: [facility] [place] [id number] Performed By: #### 2 731-8, 43011-1, 04268-5 #### [facility] CLIA [id number] [address] [place] [address] [place] MCHC (RBC) [Mass/Vol] 32.3 g/dL Normal 30.5-36.0 [facility] Comment on above: Order Comment: Speci men Type: BLOOD SPECIMEN Ordering Facility: [facility] Address: [facility] [place] [address] Performed By: #### 2 731-8, 39769-7, 97830-5 #### [facility] CLIA [id number] [address] [place] [address] [place] MCV (RBC) [Entitic vol] 90.1 fL Normal 80.0-100.0 [facility] Comment on above: Order Comment: Speci men Type: BLOOD SPECIMEN Ordering Facility: oster Address: [facility] [place] [address] Performed By: #### 2 731-8, 91461-3, 38794-7 #### [facility] CLIA [id number] [address] [place], [place] [address] [place] Nucleated RBC (Bld) [#/Vol] 10*3/uL Normal <0.01 [facility] Comment on above: Order Comment: Speci men Type: BLOOD SPECIMEN Ordering Facility: Address: [facility] [place] [address] Performed By: #### 2 731-8, 17862-3, 94822-6 #### [facility] CLIA [id number] [address] [place] [address] [place] Platelet mean volume (Bld) [Entitic vol] 10.5 fL Normal 9.0-12.7 [facility] Comment on above: Order Comment: Speci men Type: BLOOD SPECIMEN Ordering Facility: oster Address: [facility] [place] [address] Performed By: #### 2 731-8, , 93667-2 #### [facility] CLIA [id number] [address] [place], [place] [address] [place] Platelets (Bld) [#/Vol] 339 10*3/uL Normal 150-400 [facility] Comment on above: Order Comment: Speci men Type: BLOOD SPECIMEN Ordering Facility: Address: [address] [place] [address] Performed By: #### 2 731-8, , 80037-5 #### [facility] CLIA [id number] [address] [place], [place] [address] [place] RBC (Bld) [#/Vol] 3.23 10*6/uL Low 3.90-5.20 [facility] Comment on above: Order Comment: Speci men Type: BLOOD SPECIMEN Ordering Facility: Address: [address] [place] [address] Performed By: #### 2 731-8, 61804-3, 41944-1 #### [facility] CLIA [id number] [address] [place] [address] [place] WBC (Bld) [#/Vol] 9.72 10*3/uL Normal 3.70-11.00 [facility] Comment on above: Order Comment: Speci men Type: BLOOD SPECIMEN Ordering Facility: Address: [address] [place] [address] Performed By: #### 2 731-8, 33068-2, 67028-8 #### [facility] CLIA [id number] [address] [place] [address] [place] Magnesium SerPl-mCncon 07-30 Magnesium [Mass/Vol] 1.4 mg/dL Low 1.7-2.3 [facility] Comment on above: Order Comment: Speci men Type: BLOOD SPECIMEN Ordering Facility: Address: [facility] [place] [address] Performed By: #### 2 4321-2 #### [facility] CLIA [id number] [address] [place] [address] [place] PTH-Intact SerPl-mCncon 04-0 Parathyrin.intact [Mass/Vol] 1159 pg/mL High 15-65 [facility] Comment on above: Order Comment: Speci men Type: BLOOD SPECIMEN Ordering Facility: Address: [address] [place] [address] Performed By: #### 2 4321-2 #### [facility] CLIA [id number] [address] [place], [place] [address] [place] Renal function 2000 panelon 07-30-2024 Albumin [Mass/Vol] 4.3 g/dL Normal 3.9-4.9 [facility] Comment on above: Order Comment: Speci men Type: BLOOD SPECIMEN Ordering Facility: Address: [address] [place] [address] Performed By: #### 2 4321-2 #### [facility] CLIA [id number] [address] [address] [place] Anion gap [Moles/Vol] 16 mmol/L High 8-15 [facility] Comment on above: Order Comment: Speci men Type: BLOOD SPECIMEN Ordering Facility: Address: [address] [place] [address] Performed By: #### 2 4321-2 #### [facility] CLIA [id number] [address] [address] [place] Calcium [Mass/Vol] 9.4 mg/dL Normal 8.5-10.2 [facility] Comment on above: Order Comment: Speci men Type: BLOOD SPECIMEN Ordering Facility: Address: [address] [place] [address] Performed By: #### 2 4321-2 #### [facility] CLIA [id number] [address] [address] [place] Chloride [Moles/Vol] 103 mmol/L Normal 98-107 [facility] Comment on above: Order Comment: Speci men Type: BLOOD SPECIMEN Ordering Facility: Address: [address] [place] [address] Performed By: #### 2 4321-2 #### [facility] CLIA [id number] [address] [address] [place] CO2 [Moles/Vol] 16 mmol/L Low 22-30 [facility] Comment on above: Order Comment: Speci men Type: BLOOD SPECIMEN Ordering Facility: Address: [address] [place] [address] Performed By: #### 2 4321-2 #### [facility] CLIA [id number] [address] [address] [place] Creatinine [Mass/Vol] 4.09 mg/dL High 0.58-0.96 [facility] Comment on above: Order Comment: Andres luna Type: BLOOD SPECIMEN Ordering Facility: [address] Address: [address] [place] [address] Performed By: #### 2 4321-2 #### [facility] CLIA [id number] [address] [place] [address] [place] Creatinine and Glomerular filtration rate.predicted panel (S/P/Bld) 12 mL/min/1.73m??? Low >=60 [facility] Comment on above: Order Comment: Specjayce luna Type: BLOOD SPECIMEN Ordering Facility: [address] Address: [facility] [place] [address] Result Comment: Claudia mated Glomerular Filtration Rate [...] GFR. Performed By: #### 2 4321-2 #### [facility] CLIA [id number] [address] [place] [id number] [place] Glucose [Mass/Vol] 93 mg/dL Normal 74-99 [facility] Comment on above: Order Comment: Andres luna Type: BLOOD SPECIMEN Ordering Facility: [address] Address: [facility] [place] [address] Result Comment: The [place] Diabetes Association (ADA) provides guidance for cutoff [...] Standards of Medical Care in Diabetes 2016, [place] [employer]. Diabetes Care. 2016.39(Suppl 1). Performed By: #### 2 4321-2 #### [facility] CLIA [id number] [address] [address] [place] Phosphate [Mass/Vol] 5.9 mg/dL High 2.7-4.8 [facility] Comment on above: Order Comment: Speci men Type: BLOOD SPECIMEN Ordering Facility: Address: [address] [place] [address] Performed By: #### 2 4321-2 #### [facility] CLIA [id number] [address] [address] [place] Potassium [Moles/Vol] 6.0 mmol/L High 3.7-5.1 [facility] Comment on above: Order Comment: Speci men Type: BLOOD SPECIMEN Ordering Facility: Address: [address] [place] [address] Performed By: #### 2 4321-2 #### [facility] CLIA [id number] [address] [address] [place] Sodium [Moles/Vol] 135 mmol/L Low 136-144 [facility] Comment on above: Order Comment: Speci men Type: BLOOD SPECIMEN Ordering Facility: Address: [address] [place] [address] Performed By: #### 2 4321-2 #### [facility] CLIA [id number] [address] [address] [place] Urea nitrogen [Mass/Vol] 40 mg/dL High 7-21 [facility] Comment on above: Order Comment: Speci men Type: BLOOD SPECIMEN Ordering Facility: Address: [address] [place] [address] Performed By: #### 2 4321-2 #### [facility] CLIA [id number] [address] [address] [place] 1,25-dihydroxyvitamin D3 [Ma ss/Vol]on 05-01-2024 VIT D1,25 DIHYDROXY 37.2 pg/mL Normal 19.9-79.3 [facility] Comment on above: Order Comment: Speci men Type: BLOOD SPECIMEN Ordering Facility: Address: [address] [place] [address] Performed By: #### 1 649-3 #### [facility] CLIA [id number] [facility] [place] [address] [place] 25-HYDROXY D2+D3on 25-hydroxyvitamin D3 [Mass/Vol] 58.6 ng/mL Normal 30.0-100.0 [facility] Comment on above: Order Comment: Speci men Type: BLOOD SPECIMEN Ordering Facility: Address: [address] [place] [address] Result Comment: Defi cient: <20.1 ng/mL Insufficient: 20.1 - 29.9 ng/mL Sufficient: 30.0 - 100.0 ng/mL Toxic: >150.0 ng/mL Reference: Devyn MEI, N Engl J Med (2007)357:266-81 This test was developed and its performance characteristics determined by the Pathology and Laboratory Medicine [place] at the [facility]. The U.S. Food and Drug Administration has not approved or cleared this test, however, FDA clearance or approval is not currently required for clinical use. Performed By: #### 2 4321-2 #### [facility] CLIA [id number] [address] [place] [address] [place] Vitamin D2 [Mass/Vol] 58.6 ng/mL Normal [facility] Comment on above: Order Comment: Speci men Type: BLOOD SPECIMEN Ordering Facility: Address: [address] [place] [address] Performed By: #### 2 4321-2 #### [facility] CLIA [id number] [facility] [address] [address] [place] Vitamin D3 [Mass/Vol] ng/mL Normal [facility] Comment on above: Order Comment: Speci men Type: BLOOD SPECIMEN Ordering Facility: [facility] [place] Address: [facility] [place] [id number] Performed By: #### 2 4321-2 #### [facility] CLIA [id number] [address] [place] [id number] [place] ALBUMIN/CREATININE RATIO, UR INEon 05-01-2024 Albumin DL <= 20 mg/L (U) [Mass/Vol] 154.4 mg/L Normal [facility] Comment on above: Order Comment: Speci men Type: BLOOD SPECIMEN Ordering Facility: [facility] [place] Address: [facility] [place] [address] Performed By: #### 2 4321-2 #### [facility] CLIA [id number] [address] [place] [address] [place] Albumin/Creatinine (U) [Mass ratio] 1058 mg/g High <30 [facility] Comment on above: Order Comment: Speci men Type: BLOOD SPECIMEN Ordering Facility: [facility] [place] Address: [address] [place] [address] Result Comment: Adul t Male and Female Nephrotic Criteria: <30 mg/g is considered normal to mildly increased 30-300 mg/g is considered moderately increased >300 mg/g is considered severely increased KDIGO. (2013). KDIGO 2012 Clinical Practice Guideline for the Evaluation and Management of Chronic Kidney Disease. Official Journal of the International Society of Nephrology, 3(1), 1-150. Performed By: #### 2 4321-2 #### [facility] CLIA [id number] [address] [place], [place] [address] [place] Creatinine (U) [Mass/Vol] 14.6 mg/dL Low 20.0-300.0 [facility] Comment on above: Order Comment: Speci men Type: BLOOD SPECIMEN Ordering Facility: [facility] [place] Address: [address] [place] [address] Performed By: #### 2 4321-2 #### [facility] CLIA [id number] [address] [place], [place] [address] [place] CBC panel Auto (Bld)on 05-01 Erythrocyte distribution width (RBC) [Ratio] 14.5 % Normal 11.5-15.0 [facility] Comment on above: Order Comment: Speci men Type: BLOOD SPECIMEN Ordering Facility: [address] Address: [facility] [place] [place] [address] Performed By: #### 5 8410-2 #### [facility] CLIA [id number] [address] [place] [address] [place] Hematocrit (Bld) [Volume fraction] 29.0 % Low 36.0-46.0 [facility] Comment on above: Order Comment: Speci men Type: BLOOD SPECIMEN Ordering Facility: [facility] [place] Address: [address] [place] [address] Performed By: #### 5 8410-2 #### [facility] CLIA [id number] [address] [place] [address] [place] Hemoglobin (Bld) [Mass/Vol] 9.2 g/dL Low 11.5-15.5 [facility] Comment on above: Order Comment: Speci men Type: BLOOD SPECIMEN Ordering Facility: [address] Address: [address] [place] [address] Performed By: #### 5 8410-2 #### [facility] CLIA [id number] [address] [place] [address] [place] MCH (RBC) [Entitic mass] 29.1 pg Normal 26.0-34.0 [facility] Comment on above: Order Comment: Speci men Type: BLOOD SPECIMEN Ordering Facility: [facility] [place] Address: [facility] [place] [place] [address] Performed By: #### 5 8410-2 #### [facility] CLIA [id number] [address] [place] [address] [place] MCHC (RBC) [Mass/Vol] 31.7 g/dL Normal 30.5-36.0 [facility] Comment on above: Order Comment: Speci men Type: BLOOD SPECIMEN Ordering Facility: Address: [address] [place] [address] Performed By: #### 5 8410-2 #### [facility] CLIA [id number] [address] [place] [address] [place] MCV (RBC) [Entitic vol] 91.8 fL Normal 80.0-100.0 [facility] Comment on above: Order Comment: Speci men Type: BLOOD SPECIMEN Ordering Facility: Address: [address] [place] [address] Performed By: #### 5 8410-2 #### [facility] CLIA [id number] [address] [place] [address] [place] Nucleated RBC (Bld) [#/Vol] 10*3/uL Normal <0.01 [facility] Comment on above: Order Comment: Speci men Type: BLOOD SPECIMEN Ordering Facility: Address: [address] [place] [address] Performed By: #### 5 8410-2 #### [facility] CLIA [id number] [address] [place] [address] [place] Platelet mean volume (Bld) [Entitic vol] 11.0 fL Normal 9.0-12.7 [facility] Comment on above: Order Comment: Speci men Type: BLOOD SPECIMEN Ordering Facility: Address: [address] [place] [address] Performed By: #### 5 8410-2 #### [facility] CLIA [id number] [address] [place] [address] [place] Platelets (Bld) [#/Vol] 314 10*3/uL Normal 150-400 [facility] Comment on above: Order Comment: Speci men Type: BLOOD SPECIMEN Ordering Facility: Address: [address] [place] [address] Performed By: #### 5 8410-2 #### [facility] CLIA [id number] [facility] [address] [address] [place] RBC (Bld) [#/Vol] 3.16 10*6/uL Low 3.90-5.20 [facility] Comment on above: Order Comment: Speci men Type: BLOOD SPECIMEN Ordering Facility: [facility] Address: [address] [place] [address] Performed By: #### 5 8410-2 #### [facility] CLIA [id number] [address] [place] [address] [place] WBC (Bld) [#/Vol] 8.51 10*3/uL Normal 3.70-11.00 [facility] Comment on above: Order Comment: Speci men Type: BLOOD SPECIMEN Ordering Facility: [facility] Address: [address] [place] [address] Performed By: #### 5 8410-2 #### [facility] CLIA [id number] [address] [place], [place] [address] [place] Magnesium SerPl-mCncon - Magnesium [Mass/Vol] 1.3 mg/dL Low 1.7-2.3 [facility] Comment on above: Order Comment: Speci men Type: BLOOD SPECIMEN Ordering Facility: Address: [address] [place] [address] Performed By: #### 2 731-8, 18513-5, 25849-8 #### [facility] CLIA [id number] [address] [place], [place] [address] [place] PTH-Intact SerPl-mCncon 01-0 Parathyrin.intact [Mass/Vol] 812 pg/mL High 15-65 [facility] Comment on above: Order Comment: Speci men Type: BLOOD SPECIMEN Ordering Facility: Address: [address] [place] [address] Performed By: #### 2 731-8, 64167-3, 67399-2 #### [facility] CLIA [id number] [address] [address] [place] Renal function 2000 panelon 05-01-2024 Albumin [Mass/Vol] 4.2 g/dL Normal 3.9-4.9 [facility] Comment on above: Order Comment: Speci men Type: BLOOD SPECIMEN Ordering Facility: Address: [address] [place] [address] Performed By: #### 2 731-8, , 18015-7 #### [facility] CLIA [id number] [address] [place] [id number] [place] Anion gap [Moles/Vol] 14 mmol/L Normal 8-15 [facility] Comment on above: Order Comment: Speci men Type: BLOOD SPECIMEN Ordering Facility: Address: [address] [place] [address] Performed By: #### 2 731-8, , 76049-5 #### [facility] CLIA [id number] [address] [address] [place] Calcium [Mass/Vol] 9.4 mg/dL Normal 8.5-10.2 [facility] Comment on above: Order Comment: Speci men Type: BLOOD SPECIMEN Ordering Facility: Address: [address] [place] [address] Performed By: #### 2 731-8, , 98278-6 #### [facility] CLIA [id number] [address] [address] [place] Chloride [Moles/Vol] 103 mmol/L Normal 98-107 [facility] Comment on above: Order Comment: Speci men Type: BLOOD SPECIMEN Ordering Facility: Address: [address] [place] [address] Performed By: #### 2 731-8, , 38520-5 #### [facility] CLIA [id number] [address] [place] [address] [place] CO2 [Moles/Vol] 17 mmol/L Low 22-30 [facility] Comment on above: Order Comment: Speci cheryl Type: BLOOD SPECIMEN Ordering Facility: [facility] [place] Address: [address] [place] [address] Performed By: #### 2 731-8, 33863-2, 01458-6 #### [facility] CLIA [id number] [facility] [place] [address] [place] Creatinine [Mass/Vol] 3.98 mg/dL High 0.58-0.96 [facility] Comment on above: Order Comment: Speci men Type: BLOOD SPECIMEN Ordering Facility: [facility] [place] Address: [address] [place] [address] Performed By: #### 2 731-8, 60361-1, 85264-6 #### [facility] CLIA [id number] [address] [place] [address] [place] Creatinine and Glomerular filtration rate.predicted panel (S/P/Bld) 12 mL/min/1.73m??? Low >=60 [facility] Comment on above: Order Comment: Specjayce luna Type: BLOOD SPECIMEN Ordering Facility: [address] Address: [address] [place] [address] Result Comment: Claudia mated Glomerular Filtration Rate [...] actual GFR. Performed By: #### 2 731-8, 32833-9, 71601-9 #### [facility] CLIA [id number] [address] [place] [id number] [place] Glucose [Mass/Vol] 94 mg/dL Normal 74-99 [facility] Comment on above: Order Comment: Speci men Type: BLOOD SPECIMEN Ordering Facility: [address] Address: [address] [place] [address] Result Comment: The [place] Diabetes Association (ADA) provides guidance for cutoff [...] Standards of Medical Care in Diabetes 2016, [place] [employer]. Diabetes Care. 2016.39(Suppl 1). Performed By: #### 2 731-8, 59440-2, 86097-4 #### [facility] CLIA [id number] [address] [address] [place] Phosphate [Mass/Vol] 5.6 mg/dL High 2.7-4.8 [facility] Comment on above: Order Comment: Andres luna Type: BLOOD SPECIMEN Ordering Facility: [address] Address: [address] [place] [address] Performed By: #### 2 731-8, , 20146-7 #### [facility] CLIA [id number] [address] [address] [place] Potassium [Moles/Vol] 5.7 mmol/L High 3.7-5.1 [facility] Comment on above: Order Comment: Andres luna Type: BLOOD SPECIMEN Ordering Facility: [address] Address: [address] [place] [address] Performed By: #### 2 731-8, , 82622-9 #### [facility] CLIA [id number] [address] [address] [place] Sodium [Moles/Vol] 134 mmol/L Low 136-144 [facility] Comment on above: Order Comment: Speci men Type: BLOOD SPECIMEN Ordering Facility: Address: [address] [place] [address] Performed By: #### 2 731-8, , #### [facility] CLIA [id number] [address] [place] [address] [place] Urea nitrogen [Mass/Vol] 32 mg/dL High 7- [facility] Comment on above: Order Comment: Speci men Type: BLOOD SPECIMEN Ordering Facility: Address: [address] [place] [address] Performed By: #### 2 731-8, , #### [facility] CLIA [id number] [address] [place] [address] [place] 25(OH)D3 SerP-[facility] 2023 25-hydroxyvitamin D3 [Mass/Vol] 36.2 ng/mL Normal 31.0-80.0 [facility] Comment on above: Order Comment: Speci men Type: BLOOD SPECIMEN Ordering Facility: Address: [address] [place] [address] Result Comment: Clas sification of 25 [place] Vitamin D status: Deficiency/Insufficiency: < or = 30 ng/ml. Sufficiency/Optimal Levels: 31-80 ng/mL Toxicity: > 100 ng/mL. Test performed by chemiluminescent immunoassay. Performed By: #### 2 4321-2 #### [facility] CLIA [id number] [address] [place] [address] [place] ALBUMIN/CREATININE RATIO, UR INEon 02-17-2024 Albumin DL <= 20 mg/L (U) [Mass/Vol] 144.3 mg/L Normal [facility] Comment on above: Order Comment: Speci men Type: BLOOD SPECIMEN Ordering Facility: Address: [address] [place] [address] Performed By: #### 2 731-8, , #### [facility] CLIA [id number] [address] [address] [place] Albumin/Creatinine (U) [Mass ratio] 481 mg/g High <30 [facility] Comment on above: Order Comment: Speci men Type: BLOOD SPECIMEN Ordering Facility: [facility] [place] Address: [address] [place] [address] Result Comment: Adul t Male and Female Nephrotic Criteria: <30 mg/g is considered normal to mildly increased 30-300 mg/g is considered moderately increased >300 mg/g is considered severely increased KDIGO. (2013). KDIGO 2012 Clinical Practice Guideline for the Evaluation and Management of Chronic Kidney Disease. Official Journal of the International Society of Nephrology, 3(1), 1-150. Performed By: #### 2 731-8, 34947-6, 78270-3 #### [facility] CLIA [id number] [address] [place], [place] [address] [place] Creatinine (U) [Mass/Vol] 30.0 mg/dL Normal 20.0-300.0 [facility] Comment on above: Order Comment: Speci men Type: BLOOD SPECIMEN Ordering Facility: [facility] [place] Address: [address] [place] [address] Performed By: #### 2 731-8, 42743-7, 14998-0 #### [facility] CLIA [id number] [address] [place], [place] [address] [place] CBC panel Auto (Bld)on 02-16 Erythrocyte distribution width (RBC) [Ratio] 14.1 % Normal 11.5-15.0 [facility] Comment on above: Order Comment: Speci men Type: URINE SPECIMEN Ordering Facility: [facility] Address: [address], [place] [address] Performed By: #### U ACR #### [facility] CLIA [id number] [address] [address] [place] Hematocrit (Bld) [Volume fraction] 30.5 % Low 36.0-46.0 [facility] Comment on above: Order Comment: Speci men Type: URINE SPECIMEN Ordering Facility: [address] [facility] [address] Performed By: #### U ACR #### [facility] CLIA [id number] [address] [place] [address] [place] Hemoglobin (Bld) [Mass/Vol] 9.4 g/dL Low 11.5-15.5 [facility] Comment on above: Order Comment: Speci men Type: URINE SPECIMEN Ordering Facility: [address] [facility] [place] [address] Performed By: #### U ACR #### [facility] CLIA [id number] [address] [place] [address] [place] MCH (RBC) [Entitic mass] 28.1 pg Normal 26.0-34.0 [facility] Comment on above: Order Comment: Speci men Type: URINE SPECIMEN Ordering Facility: [address] [facility] [address] Performed By: #### U ACR #### [facility] CLIA [id number] [address] [place] [address] [place] MCHC (RBC) [Mass/Vol] 30.8 g/dL Normal 30.5-36.0 [facility] Comment on above: Order Comment: Speci men Type: URINE SPECIMEN Ordering Facility: [address] [facility] [address] Performed By: #### U ACR #### [facility] CLIA [id number] [address] [place] [address] [place] MCV (RBC) [Entitic vol] 91.0 fL Normal 80.0-100.0 [facility] Comment on above: Order Comment: Speci men Type: URINE SPECIMEN Ordering Facility: [address] [facility] [place] [address] Performed By: #### U ACR #### [facility] CLIA [id number] [address] [place] [address] [place] Nucleated RBC (Bld) [#/Vol] 10*3/uL Normal <0.01 [facility] Comment on above: Order Comment: Speci men Type: URINE SPECIMEN Ordering Facility: [address] Address: [address] [place] [address] [place] [address] Performed By: #### U ACR #### [facility] CLIA [id number] [address] [place] [address] [place] Platelet mean volume (Bld) [Entitic vol] 10.9 fL Normal 9.0-12.7 [facility] Comment on above: Order Comment: Speci men Type: URINE SPECIMEN Ordering Facility: [address] Address: [address] [place] [address] [place] [address] Performed By: #### U ACR #### [facility] CLIA [id number] [address] [place] [address] [place] Platelets (Bld) [#/Vol] 376 10*3/uL Normal 150-400 [facility] Comment on above: Order Comment: Speci men Type: URINE SPECIMEN Ordering Facility: [address] Address: [address] [place] [address] [place] [address] Performed By: #### U ACR #### [facility] CLIA [id number] [address] [place] [address] [place] RBC (Bld) [#/Vol] 3.35 10*6/uL Low 3.90-5.20 [facility] Comment on above: Order Comment: Speci men Type: URINE SPECIMEN Ordering Facility: [address] Address: [address] [place] [address] [place] [address] Performed By: #### U ACR #### [facility] CLIA [id number] [address] [place] [address] [place] WBC (Bld) [#/Vol] 9.46 10*3/uL Normal 3.70-11.00 [facility] Comment on above: Order Comment: Speci men Type: URINE SPECIMEN Ordering Facility: Address: [address] [place] [address] JAI , [place] [address] Performed By: #### U ACR #### [facility] CLIA [id number] [address] [place] [address] [place] Magnesium SerPl-mCncon 02-16 Magnesium [Mass/Vol] 0.8 mg/dL Low 1.7-2.3 [facility] Comment on above: Order Comment: Speci men Type: BLOOD SPECIMEN Ordering Facility: Address: [address] [place] [address] Performed By: #### 2 731-8, 57151-9, 02190-1 #### [facility] CLIA [id number] [address] [place] [address] [place] PTH-Intact SerPl-mCncon - Parathyrin.intact [Mass/Vol] 818 pg/mL High 15-65 [facility] Comment on above: Order Comment: Speci men Type: BLOOD SPECIMEN Ordering Facility: Address: [address] [place], [place] [address] Performed By: #### 2 731-8, 01518-1, 76810-9 #### [facility] CLIA [id number] [address] [place], [place] [address] [place] Renal function 2000 panelon 02-17-2024 Albumin [Mass/Vol] 3.9 g/dL Normal 3.9-4.9 [facility] Comment on above: Order Comment: Speci men Type: BLOOD SPECIMEN Ordering Facility: Address: [address] [place] [address] Performed By: #### 2 731-8, 15928-3, 75962-6 #### [facility] CLIA [id number] [address] [place] [id number] [place] Anion gap [Moles/Vol] 14 mmol/L Normal 8-15 [facility] Comment on above: Order Comment: Speci men Type: BLOOD SPECIMEN Ordering Facility: Address: [facility] [place] [address] Performed By: #### 2 731-8, 22838-3, 93040-0 #### [facility] CLIA [id number] [facility] [place] [id number] [place] Calcium [Mass/Vol] 8.5 mg/dL Normal 8.5-10.2 [facility] Comment on above: Order Comment: Speci men Type: BLOOD SPECIMEN Ordering Facility: Address: [facility] [place] [address] Performed By: #### 2 731-8, , 14872-5 #### [facility] CLIA [id number] [address] [place] [address] [place] Chloride [Moles/Vol] 105 mmol/L Normal 98-107 [facility] Comment on above: Order Comment: Speci men Type: BLOOD SPECIMEN Ordering Facility: Address: [facility] [place] [address] Performed By: #### 2 731-8, 16634-4, 33766-6 #### [facility] CLIA [id number] [address] [place], [place] [address] [place] CO2 [Moles/Vol] 17 mmol/L Low 22-30 [facility] Comment on above: Order Comment: Speci men Type: BLOOD SPECIMEN Ordering Facility: Address: [address] [place] [address] Performed By: #### 2 731-8, 85353-6, 98906-8 #### [facility] CLIA [id number] [address] [place] [id number] [place] Creatinine [Mass/Vol] 3.77 mg/dL High 0.58-0.96 [facility] Comment on above: Order Comment: Andres luna Type: BLOOD SPECIMEN Ordering Facility: [address] Address: [facility] [place] [address] Performed By: #### 2 731-8, 08256-4, 54566-5 #### [facility] CLIA [id number] [address] [place] [address] [place] Creatinine and Glomerular filtration rate.predicted panel (S/P/Bld) 13 mL/min/1.73m??? Low >=60 [facility] Comment on above: Order Comment: Andres luna Type: BLOOD SPECIMEN Ordering Facility: [address] Address: [facility] [place] [address] Result Comment: Claudia mated Glomerular Filtration Rate [...] actual GFR. Performed By: #### 2 731-8, 44790-5, 58093-3 #### [facility] CLIA [id number] [address] [place], [place] [address] [place] Glucose [Mass/Vol] 120 mg/dL High 74-99 [facility] Comment on above: Order Comment: Andres luna Type: BLOOD SPECIMEN Ordering Facility: [address] Address: [facility] [place] [address] Result Comment: The [place] Diabetes Association (ADA) provides guidance for cutoff [...] Standards of Medical Care in Diabetes 2016, [place] [employer] Association. Diabetes Care. 2016.39(Suppl 1). Performed By: #### 2 731-8, , 79180-3 #### [facility] CLIA [id number] [address] [address] [place] Phosphate [Mass/Vol] 4.4 mg/dL Normal 2.7-4.8 [facility] Comment on above: Order Comment: Speci men Type: BLOOD SPECIMEN Ordering Facility: Address: [address] [place] [address] Performed By: #### 2 731-8, , #### [facility] CLIA [id number] [address] [place], [place] [address] [place] Potassium [Moles/Vol] 5.1 mmol/L Normal 3.7-5.1 [facility] Comment on above: Order Comment: Speci men Type: BLOOD SPECIMEN Ordering Facility: Address: [address] [place] [address] Performed By: #### 2 731-8, , #### [facility] CLIA [id number] [address] [place] [address] [place] Sodium [Moles/Vol] 136 mmol/L Normal 136-144 [facility] Comment on above: Order Comment: Speci men Type: BLOOD SPECIMEN Ordering Facility: Address: [address] [place] [address] Performed By: #### 2 731-8, , #### [facility] CLIA [id number] [address] [place] [address] [place] Urea nitrogen [Mass/Vol] 26 mg/dL High 7-21 [facility] Comment on above: Order Comment: Speci men Type: BLOOD SPECIMEN Ordering Facility: Address: [address], [place] [address] Performed By: #### 2 731-8, 17861-4, 77521-5 #### [facility] CLIA [id number] [address] [place] [address] [place] 12 Lead EKGon 02-02-2024 12 Lead EKG [facility] Cardiovascular Services [address] [place] [address] 12 Lead EKG 02/02/24 0913 MR#: [id number] Acct: [id number] Name: CATARINA BOYER Rep #: [id number] : 1960 63 From: Wong Salmeron MD [...] ECG Confirmed by KRISTEN ANTHONY, WONG ([id number]), purchase request editor YASHIRA OLIVER ([id number]) on 02/03/2024 2:13:46 PM Referred By: TB Confirmed By:WONG SALMERON MD 02/03/24 1413 Date Wong Salmeron MD CC: Dr. Camille Goodman MD; Dr. Alec Parks DO Signed Normal [facility] Abdomen/Pelvis W IV Cont ONL Yon 02-02-2024 Abdomen/Pelvis W IV Cont ONLY [facility] Imaging Services [address] [place] [address] Abdomen/Pelvis W IV Cont ONLY MR#: [id number] Acct: [id number] Name: CATARINA BOYER Rep #: [id number] : 1960 F 63 From: Joni ring MD PCP: Dr. Camille Goodman MD Status: REG ER Study: Abdomen/Pelvis W IV Cont ONLY Date of Exam: Exam# [id number] Ordering Dr: Alec Parks DO [id number] STUDY: CT ABDOMEN AND PELVIS WITH CONTRAST [...] kidney. Correlation with ultrasound recommended. Electronically Signed: Join Myers MD at 10:28 EDT , CC: Dr. Camille Goodman MD; Dr. Alec Parks DO Senior Sql Developer: Signed Normal [facility] CBC W/Diff, Automatedon 01-23 0-2023 Absolute Lymph 1.83 X10 3/uL Normal 0.83-4.51 [facility] Comment on above: Performed By: #### L 501.2450, L500.4050, L100.0100 #### [facility] [address] [place], [address] Absolute Neut 9.4 X10 3/uL High 2.0-7.7 [facility] Comment on above: Performed By: #### L 501.2450, L500.4050, L100.0100 #### [facility] [address] [place], [address] Basophils/100 WBC (Bld) 0.3 % Normal 0-1 [facility] Comment on above: Performed By: #### L 501.2450, L500.4050, L100.0100 #### [facility] [address] [place], [address] Eosinophils/100 WBC (Bld) 0.7 % Normal 0-5 [facility] Comment on above: Performed By: #### L 501.2450, L500.4050, L100.0100 #### [facility] [address] [place], [address] Erythrocyte distribution width (RBC) [Ratio] 13.3 % Normal 11.6-14.6 [facility] Comment on above: Performed By: #### L 501.2450, L500.4050, L100.0100 #### [facility] [address] [place], [address] Hematocrit (Bld) [Volume fraction] 31.5 % Low 37-47 [facility] Comment on above: Performed By: #### L 501.2450, L500.4050, L100.0100 #### [facility] [address] [place], [address] Hemoglobin (Bld) [Mass/Vol] 9.7 g/dL Low 12.0-15.0 [facility] Comment on above: Performed By: #### L 501.2450, L500.4050, L100.0100 #### [facility] [address] [place], [address] IG% 0.700 Normal 0.0-0.9 [facility] Comment on above: Result Comment: IG% - Immature Granulocytes (promyelocytes, myelocytes and metamyelocytes) > 1% indicates that a LEFT SHIFT is Present. Performed By: #### L 501.2450, L500.4050, L100.0100 #### [facility] [address] [place], [address] Lymphocytes/100 WBC (Bld) 15.0 % Low 19-41 [facility] Comment on above: Performed By: #### L 501.2450, L500.4050, L100.0100 #### [facility] [address] [place], [address] MCH (RBC) [Entitic mass] 27.6 pg Normal 27.0-32.0 [facility] Comment on above: Performed By: #### L 501.2450, L500.4050, L100.0100 #### [facility] [address] [place], [address] MCHC (RBC) [Mass/Vol] 30.8 g/dL Low 32-36 [facility] Comment on above: Performed By: #### L 501.2450, L500.4050, L100.0100 #### [facility] [address] [place], [address] MCV (RBC) [Entitic vol] 89.7 fL Normal 81-99 [facility] Comment on above: Performed By: #### L 501.2450, L500.4050, L100.0100 #### [facility] [address] [place], [address] Monocytes/100 WBC (Bld) 6.1 % Normal 0-10 [facility] Comment on above: Performed By: #### L 501.2450, L500.4050, L100.0100 #### [facility] [address] [place], [address] Neutrophils/100 WBC (Bld) 77.2 % High 47-70 [facility] Comment on above: Performed By: #### L 501.2450, L500.4050, L100.0100 #### [facility] [address] [place], [address] Nucleated RBC (Bld) [#/Vol] 0 10*3/uL Normal 0-5 [facility] Comment on above: Performed By: #### L 501.2450, L500.4050, L100.0100 #### [facility] [address] [place], [address] Platelet mean volume (Bld) [Entitic vol] 10.5 fL Normal 6.2-12.0 [facility] Comment on above: Performed By: #### L 501.2450, L500.4050, L100.0100 #### [facility] [address] [place], [address] Platelets (Bld) [#/Vol] 381 10*3/uL Normal 150-450 [facility] Comment on above: Performed By: #### L 501.2450, L500.4050, L100.0100 #### [facility] [address] [place], [address] RBC (Bld) [#/Vol] 3.51 10*6/uL Low 4.2-5.4 [facility] Comment on above: Performed By: #### L 501.2450, L500.4050, L100.0100 #### [facility] [address] [place], [address] RDW SD 44.0 fl High 35.1-43.9 [facility] Comment on above: Performed By: #### L 501.2450, L500.4050, L100.0100 #### [facility] [address] [place], [address] WBC (Bld) [#/Vol] 12.2 10*3/uL High 4.4-11.0 [facility] Comment on above: Performed By: #### L 501.2450, L500.4050, L100.0100 #### [facility] [address] [place], [address] Comprehensive Metabolic [facility] 02-02-2024 Albumin [Mass/Vol] 2.9 g/dL Low 3.2-5.0 [facility] Comment on above: Performed By: #### L 501.2450, L500.4050, L100.0100 #### [facility] [address] [place], [address] Albumin/Globulin [Mass ratio] 0.7 {ratio} Low 0.9-2.4 [facility] Comment on above: Performed By: #### L 501.2450, L500.4050, L100.0100 #### [facility] [address] [place], [address] ALK P 118 U/L High 45-117 [facility] Comment on above: Performed By: #### L 501.2450, L500.4050, L100.0100 #### [facility] [address] [place], [address] ALT [Catalytic activity/Vol] 7 U/L Low 13-56 [facility] Comment on above: Performed By: #### L 501.2450, L500.4050, L100.0100 #### [facility] [address] [place], [address] AST [Catalytic activity/Vol] 5 U/L Low 15-37 [facility] Comment on above: Performed By: #### L 501.2450, L500.4050, L100.0100 #### [facility] [address] [place], [address] Bilirubin [Mass/Vol] 1.30 mg/dL High 0.20-1.00 [facility] Comment on above: Result Comment: For patients on eltrombopag therapy, use of Dimension [place] TBIL is not recommended. Performed By: #### L 501.2450, L500.4050, L100.0100 #### [facility] [address] [place], [address] BUN/CRE 6.5 RATIO Low 10-20 [facility] Comment on above: Performed By: #### L 501.2450, L500.4050, L100.0100 #### [facility] [address] [place], [address] CA,Total 9.4 mg/dL Normal 8.5-10.1 [facility] Comment on above: Performed By: #### L 501.2450, L500.4050, L100.0100 #### [facility] [address] [place], [address] Chloride [Moles/Vol] 108 mmol/L High 98-107 [facility] Comment on above: Performed By: #### L 501.2450, L500.4050, L100.0100 #### [facility] [address] [place], [address] CO2 [Moles/Vol] 20.0 mmol/L Low 21.0-32.0 [facility] Comment on above: Performed By: #### L 501.2450, L500.4050, L100.0100 #### [facility] [address] [place], [address] Creatinine [Mass/Vol] 4.00 mg/dL High 0.55-1.02 [facility] Comment on above: Result Comment: The validity of the calculated GFR GFRAA in patients over 70 years has not been determined. Clinical correlation is essential. Performed By: #### L 501.2450, L500.4050, L100.0100 #### [facility] [address] [place], [address] ECRCL 15.72 ml/min Normal [facility] Comment on above: Performed By: #### L 501.2450, L500.4050, L100.0100 #### [facility] [address] [place], [address] EST GFR - AA 15 mL/min Low >60 [facility] Comment on above: Result Comment: Afri can [place] GFR Calc Performed By: #### L 501.2450, L500.4050, L100.0100 #### [facility] [address] [place], [address] GAP 8 Normal 5-15 [facility] Comment on above: Performed By: #### L 501.2450, L500.4050, L100.0100 #### [facility] [address] [place], [address] GFR/1.73 sq M.predicted among non-blacks MDRD (S/P/Bld) [Vol rate/Area] 12 mL/min/{1.73_m2} Low >60 [facility] Comment on above: Result Comment: Non- GFR Calc Performed By: #### L 501.2450, L500.4050, L100.0100 #### [facility] [address] [place], [address] Globulin (S) [Mass/Vol] 4.0 g/dL Normal 2.2-4.2 [facility] Comment on above: Performed By: #### L 501.2450, L500.4050, L100.0100 #### [facility] [address] [place], [address] Glucose [Mass/Vol] 99 mg/dL Normal 74-106 [facility] Comment on above: Performed By: #### L 501.2450, L500.4050, L100.0100 #### [facility] [address] [place], [address] Potassium [Moles/Vol] 4.6 mmol/L Normal 3.5-5.1 [facility] Comment on above: Performed By: #### L 501.2450, L500.4050, L100.0100 #### [facility] [address] [place], [address] Sodium [Moles/Vol] 136 mmol/L Normal 136-145 [facility] Comment on above: Performed By: #### L 501.2450, L500.4050, L100.0100 #### [facility] [address] [place], [address] T PROT 6.9 g/dL Normal 6.4-8.2 [facility] Comment on above: Performed By: #### L 501.2450, L500.4050, L100.0100 #### [facility] [address] [place], [address] Urea nitrogen [Mass/Vol] 26 mg/dL High - [facility] Comment on above: Performed By: #### L 501.2450, L500.4050, L100.0100 #### [facility] [address] [place], [id number] Emergency Department Summary on 02-02-2024 Emergency Department Summary [facility] Medical Records Department [address] [place] [address] Emergency Department Summary 02/02/24 MR#: [id number] Acct: [id number] Name: CATARINA BOYER Rep #: [id number] : 1960 63 From: Alec Parks DO [...] 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 Patient rates her pain an 8 out [...] follow commands knew that she was at [facility] there is 2023 Skin: Warm, dry, intact Const Vital Signs: 02/02/24 08:52 02/02/24 10:52 02/02/24 12:00 Temperature 98.1 F Temperature Source Temporal Pulse Rate 80 65 65 Respiratory Rate 14 15 14 (more content not included)... Normal [facility] Lipaseon 02-02-2024 Lipase [Catalytic activity/Vol] 30 U/L Normal 13-75 [facility] Comment on above: Result Comment: Jonathan flores note: LIPASE revised reference range effective 22. New Lipase methodology. Expected to produce lower values than the previous assay method. NEW Reference Range: 13 - 75 U/L Performed By: #### L 501.2450, L500.4050, L100.0100 #### [facility] [address] [place], [address] Urinalysis, Completeon 02-01 BACTERIA 0 SEEN Normal None Seen [facility] Comment on above: Order Comment: CLEAN CATCH Performed By: #### L 400.0001 #### [facility] [address] [place], [address] EPI,SQUAMOUS 0 SEEN Normal 5-10 [facility] Comment on above: Order Comment: CLEAN CATCH Performed By: #### L 400.0001 #### [facility] [address] [place], [address] Mucus Ql (Urine sed) 0 SEEN Normal [facility] Comment on above: Order Comment: CLEAN CATCH Performed By: #### L 400.0001 #### [facility] [address] [place], [address] RBC 0 SEEN Normal 0-5 [facility] Comment on above: Order Comment: CLEAN CATCH Performed By: #### L 400.0001 #### [facility] [address] [place], [address] WBC 0 SEEN Normal 0-5 [facility] Comment on above: Order Comment: CLEAN CATCH Performed By: #### L 400.0001 #### [facility] [address] [place], [address] 25(OH)D3 [facility] 2023 25-hydroxyvitamin D3 [Mass/Vol] 30.5 ng/mL Low 31.0-80.0 [facility] Comment on above: Order Comment: Speci men Type: URINE SPECIMEN Ordering Facility: [address] Address: [address] [place] [address], [place] [address] Result Comment: Clas sification of 25 [place] Vitamin D status: Deficiency/Insufficiency: < or = 30 ng/ml. Sufficiency/Optimal Levels: 31-80 ng/mL Toxicity: > 100 ng/mL. Test performed by chemiluminescent immunoassay. Performed By: #### U ACR #### [facility] CLIA [id number] [address] [place] [address] [place] ALBUMIN/CREATININE RATIO, UR INEon 01-10-2024 Albumin DL <= 20 mg/L (U) [Mass/Vol] 139.8 mg/L Normal [facility] Comment on above: Order Comment: Speci men Type: URINE SPECIMEN Ordering Facility: [facility] Address: [facility] [address], [place] [address] Performed By: #### U ACR #### [facility] CLIA [id number] [address] [place] [address] [place] Albumin/Creatinine (U) [Mass ratio] 874 mg/g High <30 [facility] Comment on above: Order Comment: Speci men Type: URINE SPECIMEN Ordering Facility: [facility] Address: [facility] [address], [place] [address] Result Comment: Adul t Male and Female Nephrotic Criteria: <30 mg/g is considered normal to mildly increased 30-300 mg/g is considered moderately increased >300 mg/g is considered severely increased KDIGO. (2013). KDIGO 2012 Clinical Practice Guideline for the Evaluation and Management of Chronic Kidney Disease. Official Journal of the International Society of Nephrology, 3(1), 1-150. Performed By: #### U ACR #### [facility] CLIA [id number] [address] [place] [address] [place] Creatinine (U) [Mass/Vol] 16.0 mg/dL Low 20.0-300.0 [facility] Comment on above: Order Comment: Speci men Type: URINE SPECIMEN Ordering [facility]: [facility] [place] [address] Performed By: #### U ACR #### [facility] CLIA [id number] [address] [place] [address] [place] CBC panel Auto (Bld)on 01-09 Erythrocyte distribution width (RBC) [Ratio] 13.3 % Normal 11.5-15.0 [facility] Comment on above: Order Comment: Speci men Type: BLOOD SPECIMEN Ordering Facility: [facility] [place] Address: [address] [place] [address] Performed By: #### 2 4321-2 #### [facility] CLIA [id number] [address] [place] [id number] [place] Hematocrit (Bld) [Volume fraction] 30.8 % Low 36.0-46.0 [facility] Comment on above: Order Comment: Speci men Type: BLOOD SPECIMEN Ordering Facility: [address] Address: [address] [place] [address] Performed By: #### 2 4321-2 #### [facility] CLIA [id number] [address] [place], [place] [address] [place] Hemoglobin (Bld) [Mass/Vol] 9.8 g/dL Low 11.5-15.5 [facility] Comment on above: Order Comment: Speci men Type: BLOOD SPECIMEN Ordering Facility: [address] Address: [address] [place] [address] Performed By: #### 2 4321-2 #### [facility] CLIA [id number] [address] [place] [address] [place] MCH (RBC) [Entitic mass] 28.6 pg Normal 26.0-34.0 [facility] Comment on above: Order Comment: Speci men Type: BLOOD SPECIMEN Ordering Facility: [address] Address: [address] [place] [address] Performed By: #### 2 4321-2 #### [facility] CLIA [id number] [address] [place], [place] [address] [place] MCHC (RBC) [Mass/Vol] 31.8 g/dL Normal 30.5-36.0 [facility] Comment on above: Order Comment: Speci men Type: BLOOD SPECIMEN Ordering Facility: [address] Address: [facility] [place] [place] [address] Performed By: #### 2 4321-2 #### [facility] CLIA [id number] [address] [place], [place] [address] [place] MCV (RBC) [Entitic vol] 89.8 fL Normal 80.0-100.0 [facility] Comment on above: Order Comment: Speci men Type: BLOOD SPECIMEN Ordering Facility: Address: [address] [place] [address] Performed By: #### 2 4321-2 #### [facility] CLIA [id number] [address] [place] [address] [place] Nucleated RBC (Bld) [#/Vol] 10*3/uL Normal <0.01 [facility] Comment on above: Order Comment: Speci men Type: BLOOD SPECIMEN Ordering Facility: Address: [address] [place] [address] Performed By: #### 2 4321-2 #### [facility] CLIA [id number] [address] [place] [address] [place] Platelet mean volume (Bld) [Entitic vol] 11.3 fL Normal 9.0-12.7 [facility] Comment on above: Order Comment: Speci men Type: BLOOD SPECIMEN Ordering Facility: Address: [address] [place] [address] Performed By: #### 2 4321-2 #### [facility] CLIA [id number] [address] [place] [address] [place] Platelets (Bld) [#/Vol] 340 10*3/uL Normal 150-400 [facility] Comment on above: Order Comment: Speci men Type: BLOOD SPECIMEN Ordering Facility: Address: [address] [place] [address] Performed By: #### 2 4321-2 #### [facility] CLIA [id number] [address] [place] [address] [place] RBC (Bld) [#/Vol] 3.43 10*6/uL Low 3.90-5.20 [facility] Comment on above: Order Comment: Speci men Type: BLOOD SPECIMEN Ordering Facility: Address: [address] [place] [address] Performed By: #### 2 4321-2 #### [facility] CLIA [id number] [address] [address] [place] WBC (Bld) [#/Vol] 8.26 10*3/uL Normal 3.70-11.00 [facility] Comment on above: Order Comment: Speci men Type: BLOOD SPECIMEN Ordering Facility: Address: [facility] [place] [address] Performed By: #### 2 4321-2 #### [facility] CLIA [id number] [address] [place], [place] [address] [place] Magnesium SerPl-mCncon 01-09 Magnesium [Mass/Vol] 1.4 mg/dL Low 1.7-2.3 [facility] Comment on above: Order Comment: Speci men Type: BLOOD SPECIMEN Ordering Facility: Address: [facility] [place] [address] Performed By: #### 2 731-8, 40736-5, 57540-4 #### [facility] CLIA [id number] [address] [place], [place] [address] [place] PTH-Intact SerPl-mCncon 12-24 Parathyrin.intact [Mass/Vol] 622 pg/mL High 15-65 [facility] Comment on above: Order Comment: Speci men Type: BLOOD SPECIMEN Ordering Facility: Address: [facility] [place] [address] Performed By: #### 2 731-8, 57818-8, 62005-4 #### [facility] CLIA [id number] [address] [place] [address] [place] Renal function 2000 panelon 01-10-2024 Albumin [Mass/Vol] 4.2 g/dL Normal 3.9-4.9 [facility] Comment on above: Order Comment: Speci men Type: BLOOD SPECIMEN Ordering Facility: Address: [facility] [place] [address] Performed By: #### 2 731-8, 44397-1, 42241-5 #### [facility] CLIA [id number] [address] [address] [place] Anion gap [Moles/Vol] 14 mmol/L Normal 8-15 [facility] Comment on above: Order Comment: Speci men Type: BLOOD SPECIMEN Ordering Facility: Address: [address] [place] [address] Performed By: #### 2 731-8, , #### [facility] CLIA [id number] [address] [address] [place] Calcium [Mass/Vol] 9.8 mg/dL Normal 8.5-10.2 [facility] Comment on above: Order Comment: Speci men Type: BLOOD SPECIMEN Ordering Facility: Address: [address] [place] [address] Performed By: #### 2 731-8, , #### [facility] CLIA [id number] [address] [address] [place] Chloride [Moles/Vol] 102 mmol/L Normal 98-107 [facility] Comment on above: Order Comment: Speci men Type: BLOOD SPECIMEN Ordering Facility: Address: [address] [place] [address] Performed By: #### 2 731-8, , 24145-3 #### [facility] CLIA [id number] [address] [address] [place] CO2 [Moles/Vol] 17 mmol/L Low 22-30 [facility] Comment on above: Order Comment: Speci men Type: BLOOD SPECIMEN Ordering Facility: Address: [address] [place] [address] Performed By: #### 2 731-8, , 37756-7 #### [facility] CLIA [id number] [address] [place] [id number] [place] Creatinine [Mass/Vol] 3.54 mg/dL High 0.58-0.96 [facility] Comment on above: Order Comment: Andres luna Type: BLOOD SPECIMEN Ordering Facility: [address] Address: [address] [place] [address] Performed By: #### 2 731-8, 73481-1, 45156-0 #### [facility] CLIA [id number] [address] [place], [place] [id number] [place] Creatinine and Glomerular filtration rate.predicted panel (S/P/Bld) 14 mL/min/1.73m??? Low >=60 [facility] Comment on above: Order Comment: Andres luna Type: BLOOD SPECIMEN Ordering Facility: [address] Address: [facility] [place] [address] Result Comment: Claudia mated Glomerular Filtration Rate [...] actual GFR. Performed By: #### 2 731-8, 11726-9, 86231-0 #### [facility] CLIA [id number] [address] [place], [place] [id number] [place] Glucose [Mass/Vol] 96 mg/dL Normal 74-99 [facility] Comment on above: Order Comment: Andres luna Type: BLOOD SPECIMEN Ordering Facility: [address] Address: [facility] [place] [address] Result Comment: The [place] Diabetes Association (ADA) provides guidance for cutoff [...] Standards of Medical Care in Diabetes 2016, [place] [employer]. Diabetes Care. 2016.39(Suppl 1). Performed By: #### 2 731-8, , 41037-0 #### [facility] CLIA [id number] [address] [address] [place] Phosphate [Mass/Vol] 4.8 mg/dL Normal 2.7-4.8 [facility] Comment on above: Order Comment: Andres luna Type: BLOOD SPECIMEN Ordering Facility: [facility] Address: [facility] [place] [address] Performed By: #### 2 731-8, , #### [facility] CLIA [id number] [address] [place] [phone] [place] Potassium [Moles/Vol] 5.4 mmol/L High 3.7-5.1 [facility] Comment on above: Order Comment: Andres luna Type: BLOOD SPECIMEN Ordering Facility: [facility] [place] Address: [facility] [place] [address] Performed By: #### 2 731-8, , #### [facility] CLIA [id number] [address] [address] [place] Sodium [Moles/Vol] 133 mmol/L Low 136-144 [facility] Comment on above: Order Comment: Yasi men Type: BLOOD SPECIMEN Ordering Facility: [facility] [place] Address: [address] [place] [address] Performed By: #### 2 731-8, , #### [facility] CLIA [id number] [address] [address] [place] Urea nitrogen [Mass/Vol] 25 mg/dL High 7-21 [facility] Comment on above: Order Comment: Speci men Type: BLOOD SPECIMEN Ordering Facility: [address] Address: [address] [place] [address] Performed By: #### 2 731-8, 56143-8, 26627-4 #### [facility] CLIA [id number] [address] [place] [address] [place] XR ANKLE MINIMUM [...] 11/26/2023 5:58:16 PM Ordering Provider: REJI WELCH [facility] (ID) XR WRIST MINIMUM 3 VIEWS RIG on [...] 11/26/2023 6:02:42 PM Ordering Provider: REJI WELCH [facility] (ID) US ABDOMEN LIMITEDon 024 US ABDOMEN LIMITED [...] MD Electronically Signed Date/Time: 06/18/2023 1:42 PM [facility] US Abdomen limitedon 024 Unremarkable ultrasound of the pancreas Report Dictated on Electronically Signed By: Vijay Luo MD Electronically Signed Date/Time: 06/18/2023 1:42 PM [facility] Patient Name: CATARINA BOYER : 1960 [...] fluid. Some of the tail is obscured. [facility] Vijay Luo MD - 06/18/2023 Patient Name: [facility] 1960 [id number] Exam Date/Time: 06/17/2023 09:33 Procedure: US ABDOMEN [...] Electronically Signed Date/Time: 06/18/2023 1:42 PM EST [facility] US Abdomen limitedOrdered By : Vijay Luo on 06-18-2023 [facility] Work Phone: US Abdomen limitedon 024 Radiology Study observation (narrative) [facility] Progress Noteon 09-30-2022 Progress Note Chart [...] and specialists for ongoing medical management. Normal [facility] Basic metabolic 1998 panelon 09-29-2022 Anion gap [Moles/Vol] 7 mmol/L 3 - 13 mmol/L [facility] Calcium [Mass/Vol] 9.3 mg/dL 8.4 - 10. 4 mg/dL [facility] Chloride [Moles/Vol] 112 mmol/L High 98 - 10 7 mmol/L [facility] CO2 [Moles/Vol] 18 mmol/L Low 22 - 30 mmol/L [facility] Creatinine [Mass/Vol] 2.57 mg/dL High 0.52 - 1.04 mg/dL [facility] GFR/1.73 sq M.predicted MDRD (S/P/Bld) [Vol rate/Area] 20.8 mL/min/{1.73_m2} Low - PINF [facility] Comment on above: Calculation based on the Chronic Kidney Disease Epidemiology Collaboration (CKD-EPI) equation refit without adjustment for race Glucose [Mass/Vol] 117 mg/dL High 70 - 100 mg/dL [facility] Potassium [Moles/Vol] 5.8 mmol/L High 3.5 - 5.1 mmol/L [facility] Sodium [Moles/Vol] 137 mmol/L 135 - 145 mmol/L [facility] Urea nitrogen [Mass/Vol] 30 mg/dL High 7 - 17 mg/dL [facility] CBC W Auto Differential pane l (Bld)Ordered By: Sree Bates on 09-29-2022 Basophils (Bld) [#/Vol] 0.0 10*3/uL 0.0 - 0.2 10*3/uL [facility] Basophils/100 WBC (Bld) 0.7 % 0.0 - 2.0 % [facility] Eosinophils (Bld) [#/Vol] 0.1 10*3/uL 0.0 - 0.5 10*3/uL [facility] Eosinophils/100 WBC (Bld) 1.2 % 1.0 - 6.0 % [facility] Erythrocyte distribution width (RBC) [Ratio] 14.2 % 11.5 - 14.5 % [facility] Hematocrit (Bld) [Volume fraction] 26.7 % Low 35.0 - 47.0 % [facility] Hemoglobin (Bld) [Mass/Vol] 8.7 g/dL Low 11.7 - 16.0 g/dL [facility] Interpretation and review of laboratory results Abnormal [facility] Lymphocytes (Bld) [#/Vol] 0.8 10*3/uL Low 1.0 - 4.3 10*3/uL [facility] Lymphocytes/100 WBC (Bld) 14.0 % Low 20.0 - 40.0 % [facility] MCH (RBC) [Entitic mass] 27.6 pg 26.0 - 34.0 pg [facility] MCHC (RBC) [Mass/Vol] 32.5 % 32.0 - 36.0 % [facility] MCV (RBC) [Entitic vol] 84.8 fL 80.0 - 98.0 fL [facility] Monocytes (Bld) [#/Vol] 0.4 10*3/uL 0.0 - 0.8 10*3/uL [facility] Monocytes/100 WBC (Bld) 6.8 % 2.0 - 10.0 % [facility] Neutrophils (Bld) [#/Vol] 4.5 10*3/uL 1.8 - 7.0 10*3/uL [facility] Neutrophils/100 WBC (Bld) 77.3 % 40.0 - 80.0 % [facility] Nucleated RBC/100 WBC (Bld) [Ratio] 0.1 % [facility] Platelet mean volume (Bld) [Entitic vol] 9.2 fL 7.4 - 12.4 fL [facility] Platelets (Bld) [#/Vol] 269 10*3/uL 140 - 440 10*3/uL [facility] RBC (Bld) [#/Vol] 3.14 10*6/uL Low 3.8 - 5.20 10*6/uL [facility] WBC (Bld) [#/Vol] 5.8 10*3/uL 3.6 - 10.7 10*3/uL [facility] Calcium.ionized [Moles/Vol]O rdered By: Sheela Brown on 09-29-2022 Calcium.ionized (Bld) [Moles/Vol] 4.90 mg/dL 4.30 - 5.20 mg/dL [facility] Interpretation and review of laboratory results Abnormal [facility] PH, IONIZED CALCIUM 7.29 Low 7.31 - 7.46 [facility] Consulton 09-29-2022 Consult [facility] Consult Note Patient : Catarina Boyer; 62 y.o. [id number] Reason for Consult: Asked by Dr Nat [...] kidney disease) stage 4, GFR 15-29 ml/min ([facility]) Follows with Dr. Moreno Focal segmental glomerulosclerosis [...] otherwise negative except as mentioned in the [place]. Vital Signs: Vitals: 09/29/22 0800 BP: (!) [...] for: C4 (more content not included)... 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 Normal [facility] Laboratory - Chemistry and C hemistry - challengeOrdered By: Marlene Brown on 09-29-2022 Potassium [Moles/Vol] 4.5 mmol/L 3.5 - 5.1 mmol/L [facility] Laboratory - Chemistry and C hemistry - challengeon 09-29-2022 Magnesium [Mass/Vol] 1.4 mg/dL Low 1.6 - 2 .3 mg/dL [facility] No Panel Informationon 09-29 Interpretation and review of laboratory results Abnormal [facility] Phosphate [Moles/Vol]on Phosphate [Mass/Vol] 5.2 mg/dL High 2.5 - 4 .5 mg/dL [facility] Potassium [Moles/Vol]Ordered By: Marlene Brown on 09-29-2022 Interpretation and review of laboratory results Normal [facility] Progress Noteon 09-29-2022 Progress Note [...] (interosseous) Fluid Accumulation: No significant fluid accumulation 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: PER MD-Internal Medicine: MICU [...] On: Kcal/kg Weight Used for Energy Requirements: [place] Weight for Energy Calculation (kg): 52 kg Total Energy Requirements (kcals/day): 28-32 or 7198-3422 Weight Used for Protein Requirements: [place] Weight in Kg Used for Protein Requirements: [...] (233 lb) % Weight Change (Calculated): -1.6 [place] Body Weight (lbs) (Calculated): 115 lbs [place] Body Weight (Kg) (Calculated): 52 kg % [place] Body Weight (Calculated): 199.4 % BMI (kg/m2) (Calculated): 40.6 BMI Categories: Obese Class 3 (BMI 40.0 or greater) Nutrition Diagnosis: Severe malnutrition, Inadequate protein-energy intake related to inadequate protein-energy intake, early satiety as evidenced by poor intake prior to admission, intake 0-25%, nausea, vomiting, diarrhea, 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 Normal [facility] Basic metabolic 1998 panelon 09-28-2022 Anion gap [Moles/Vol] 7 mmol/L 3 - 13 mmol/L [facility] Calcium [Mass/Vol] 8.9 mg/dL 8.4 - 10. 4 mg/dL [facility] Chloride [Moles/Vol] 113 mmol/L High 98 - 10 7 mmol/L [facility] CO2 [Moles/Vol] 18 mmol/L Low 22 - 30 mmol/L [facility] Creatinine [Mass/Vol] 2.37 mg/dL High 0.52 - 1.04 mg/dL [facility] GFR/1.73 sq M.predicted MDRD (S/P/Bld) [Vol rate/Area] 22.9 mL/min/{1.73_m2} Low - PINF [facility] Comment on above: Calculation based on the Chronic Kidney Disease Epidemiology Collaboration (CKD-EPI) equation refit without adjustment for race Glucose [Mass/Vol] 103 mg/dL High 70 - 100 mg/dL [facility] Potassium [Moles/Vol] 5.0 mmol/L 3.5 - 5.1 mmol/L [facility] Sodium [Moles/Vol] 138 mmol/L 135 - 145 mmol/L [facility] Urea nitrogen [Mass/Vol] 28 mg/dL High 7 - 17 mg/dL [facility] CBC W Auto Differential pane l (Bld)on 09-28-2022 Basophils (Bld) [#/Vol] 0.1 10*3/uL 0.0 - 0.2 10*3/uL [facility] Basophils/100 WBC (Bld) 0.8 % 0.0 - 2.0 % [facility] Eosinophils (Bld) [#/Vol] 0.1 10*3/uL 0.0 - 0.5 10*3/uL [facility] Eosinophils/100 WBC (Bld) 1.5 % 1.0 - 6.0 % [facility] Erythrocyte distribution width (RBC) [Ratio] 13.9 % 11.5 - 14.5 % [facility] Hematocrit (Bld) [Volume fraction] 27.9 % Low 35.0 - 47.0 % [facility] Hemoglobin (Bld) [Mass/Vol] 9.2 g/dL Low 11.7 - 16.0 g/dL [facility] Interpretation and review of laboratory results Abnormal [facility] Lymphocytes (Bld) [#/Vol] 0.9 10*3/uL Low 1.0 - 4.3 10*3/uL [facility] Lymphocytes/100 WBC (Bld) 13.0 % Low 20.0 - 40.0 % [facility] MCH (RBC) [Entitic mass] 27.6 pg 26.0 - 34.0 pg [facility] MCHC (RBC) [Mass/Vol] 32.9 % 32.0 - 36.0 % [facility] MCV (RBC) [Entitic vol] 83.9 fL 80.0 - 98.0 fL [facility] Monocytes (Bld) [#/Vol] 0.5 10*3/uL 0.0 - 0.8 10*3/uL [facility] Monocytes/100 WBC (Bld) 6.8 % 2.0 - 10.0 % [facility] Neutrophils (Bld) [#/Vol] 5.6 10*3/uL 1.8 - 7.0 10*3/uL [facility] Neutrophils/100 WBC (Bld) 77.9 % 40.0 - 80.0 % [facility] Nucleated RBC/100 WBC (Bld) [Ratio] 0.0 % [facility] Platelet mean volume (Bld) [Entitic vol] 9.4 fL 7.4 - 12.4 fL [facility] Platelets (Bld) [#/Vol] 284 10*3/uL 140 - 440 10*3/uL [facility] RBC (Bld) [#/Vol] 3.32 10*6/uL Low 3.8 - 5.20 10*6/uL [facility] WBC (Bld) [#/Vol] 7.2 10*3/uL 3.6 - 10.7 10*3/uL [facility] Calcium.ionized [Moles/Vol]o n 09-28-2022 Calcium.ionized (Bld) [Moles/Vol] 4.60 mg/dL 4.30 - 5.20 mg/dL [facility] Interpretation and review of laboratory results Normal [facility] PH, IONIZED CALCIUM 7.33 7.31 - 7.46 [facility] ECG 12-LEADon 09-28-2022 ECG 12-LEAD IMPRESSION: SINUS RHYTHM RSR' IN V1 OR V2, RIGHT VCD OR RVH NONSPECIFIC T ABNORMALITIES, LATERAL LEADS Compared to ECG 09/27/2022 02:12:55 Right ventricular hypertrophy now present RSR' in V1 or V2 now present T-wave abnormality still present Electronically Signed On 09-28-2022 11:55:27 EDT by Pradeep Minaya Normal [facility] Laboratory - Chemistry and C hemistry - challengeon 09-28-2022 Magnesium [Mass/Vol] 1.7 mg/dL 1.6 - 2 .3 mg/dL [facility] Magnesium [Mass/Vol]on 09-28 Interpretation and review of laboratory results Normal [facility] No Panel InformationOrdered By: Pradeep Minaya on 09-28-2022 P [place] 35 degrees [facility] Work Phone: IA Interval 152 ms [facility] Work Phone: QRS [place] 23 degrees [facility] Work Phone: QRSD Interval 90 ms [facility] [employer] Work Phone: QT Interval 404 ms [facility] Work Phone: QTC Interval 430 ms [facility] Work Phone: T Wave [place] 99 degrees [facility] Work Phone: [facility] Work Phone: No Panel Informationon 09-28 SINUS [...] 11:55:27 EDT by Pradeep Minaya [facility] Interpretation and review of laboratory results Abnormal [facility] Phosphate [Moles/Vol]on 06-0 6-2023 Phosphate [Mass/Vol] 5.4 mg/dL High 2.5 - 4 .5 mg/dL [facility] Progress Noteon 09-28-2022 Progress Note Patient in room, Alert and oriented, no SOB, and able to answer all questions. No needs at this time. Normal [facility] Progress Note Physical Therapy Facility/Department: [facility] ICU Physical Therapy Initial Evaluation NAME: Catarina Boyer : 1960 Date of Service: 09/28/2022 Discharge Recommendations: Home with assist PRN ([facility] PT pending patients wishes/needs at discharge) PT [...] order to return home with assist and [facility] PT. Activity Tolerance Activity Tolerance: Patient limited by fatigue, Patient limited by endurance Patient Diagnosis(es): The primary encounter diagnosis was Hypomagnesemia. Diagnoses of Diarrhea, unspecified type and Weakness were also pertinent to this visit. 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 Normal [facility] Progress Note Occupational Therapy Facility/Department: ICU Occupational [...] electrolyte abnormalities. PMH is listed above. Exam: [facility] Assistance / Modification: SBA Activity Tolerance Activity [...] With device?: No Transfer Assistance: Independent Active Aircraft Landing Gear Inspector: Yes Mode of Transportation: Truck Objective Gross [...] reach, G (more content not included)... Normal [facility] Progress Note Will assume care upo n transfer out of ICU. D/w Dr Hutchinson by phone. Normal [facility] Vital signsOrdered By: Pradeep Minaya on 09-28-2022 Heart rate 68 /min bpm [facility] Work Phone: Basic metabolic 1998 panelon 09-27-2022 Anion gap [Moles/Vol] 9 mmol/L 3 - 13 mmol/L [facility] Calcium [Mass/Vol] 8.3 mg/dL Low 8.4 - 10. 4 mg/dL [facility] Chloride [Moles/Vol] 111 mmol/L High 98 - 10 7 mmol/L [facility] CO2 [Moles/Vol] 17 mmol/L Low 22 - 30 mmol/L [facility] Creatinine [Mass/Vol] 2.23 mg/dL High 0.52 - 1.04 mg/dL [facility] GFR/1.73 sq M.predicted MDRD (S/P/Bld) [Vol rate/Area] 24.7 mL/min/{1.73_m2} Low - PINF [facility] Comment on above: Calculation based on the Chronic Kidney Disease Epidemiology Collaboration (CKD-EPI) equation refit without adjustment for race Glucose [Mass/Vol] 96 mg/dL 70 - 100 mg/dL [facility] Potassium [Moles/Vol] 4.3 mmol/L 3.5 - 5.1 mmol/L [facility] Sodium [Moles/Vol] 137 mmol/L 135 - 145 mmol/L [facility] Urea nitrogen [Mass/Vol] 30 mg/dL High 7 - 17 mg/dL [facility] Anion gap [Moles/Vol] 12 mmol/L 3 - 13 mmol/L [facility] Calcium [Mass/Vol] 7.6 mg/dL Low 8.4 - 10. 4 mg/dL [facility] Chloride [Moles/Vol] 111 mmol/L High 98 - 10 7 mmol/L [facility] CO2 [Moles/Vol] 14 mmol/L Low 22 - 30 mmol/L [facility] Creatinine [Mass/Vol] 2.28 mg/dL High 0.52 - 1.04 mg/dL [facility] GFR/1.73 sq M.predicted MDRD (S/P/Bld) [Vol rate/Area] 24.0 mL/min/{1.73_m2} Low - PINF [facility] Comment on above: Calculation based on the Chronic Kidney Disease Epidemiology Collaboration (CKD-EPI) equation refit without adjustment for race Glucose [Mass/Vol] 92 mg/dL 70 - 100 mg/dL [facility] Interpretation and review of laboratory results Abnormal [facility] Potassium [Moles/Vol] 4.0 mmol/L 3.5 - 5.1 mmol/L [facility] Sodium [Moles/Vol] 138 mmol/L 135 - 145 mmol/L [facility] Urea nitrogen [Mass/Vol] 26 mg/dL High 7 - 17 mg/dL [facility] CARECOORDon 09-27-2022 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 Plan to DC home and back to work. No needs identified. Patient verbalizes understanding and is in agreement with POC. Peggy Smyth RN Normal [facility] CAREPLNon 09-27-2022 CAREPLN Follow up from overnight admission: clinically improved No neuromuscular, boiler house mechanic or cardiac abnormalities. Electrolytes replaced. Ivf discontinue in setting of nagma, renal function stable. Held PO Magnesium as likely exacerbating diarrhea. Advanced diet, electrolytes q12. If stable and tolerating, can de-escalate to GMF in next 12-24 hrs Normal [facility] CBC W Auto Differential pane l (Bld)on 09-27-2022 Basophils (Bld) [#/Vol] 0.1 10*3/uL 0.0 - 0.2 10*3/uL [facility] Basophils/100 WBC (Bld) 0.8 % 0.0 - 2.0 % [facility] Eosinophils (Bld) [#/Vol] 0.0 10*3/uL 0.0 - 0.5 10*3/uL [facility] Eosinophils/100 WBC (Bld) 0.6 % Low 1.0 - 6.0 % [facility] Erythrocyte distribution width (RBC) [Ratio] 14.0 % 11.5 - 14.5 % [facility] Hematocrit (Bld) [Volume fraction] 28.0 % Low 35.0 - 47.0 % [facility] Hemoglobin (Bld) [Mass/Vol] 9.2 g/dL Low 11.7 - 16.0 g/dL [facility] Interpretation and review of laboratory results Abnormal [facility] Lymphocytes (Bld) [#/Vol] 1.7 10*3/uL 1.0 - 4.3 10*3/uL [facility] Lymphocytes/100 WBC (Bld) 20.6 % 20.0 - 40.0 % [facility] MCH (RBC) [Entitic mass] 27.5 pg 26.0 - 34.0 pg [facility] MCHC (RBC) [Mass/Vol] 32.8 % 32.0 - 36.0 % [facility] MCV (RBC) [Entitic vol] 83.7 fL 80.0 - 98.0 fL [facility] [facility] Monocytes (Bld) [#/Vol] 0.5 10*3/uL 0.0 - 0.8 10*3/uL [facility] Monocytes/100 WBC (Bld) 6.2 % 2.0 - 10.0 % [facility] Neutrophils (Bld) [#/Vol] 5.9 10*3/uL 1.8 - 7.0 10*3/uL [facility] Neutrophils/100 WBC (Bld) 71.8 % 40.0 - 80.0 % [facility] Nucleated RBC/100 WBC (Bld) [Ratio] 0.1 % [facility] Platelet mean volume (Bld) [Entitic vol] 9.1 fL 7.4 - 12.4 fL [facility] Platelets (Bld) [#/Vol] 296 10*3/uL 140 - 440 10*3/uL [facility] RBC (Bld) [#/Vol] 3.35 10*6/uL Low 3.8 - 5.20 10*6/uL [facility] WBC (Bld) [#/Vol] 8.1 10*3/uL 3.6 - 10.7 10*3/uL [facility] CBC panel Auto (Bld)Ordered By: Lexie Barreto on 09-27-2022 Erythrocyte distribution width (RBC) [Ratio] 14.0 % 11.5 - 14.5 % [facility] Hematocrit (Bld) [Volume fraction] 33.1 % Low 35.0 - 47.0 % [facility] Hemoglobin (Bld) [Mass/Vol] 10.8 g/dL Low 11.7 - 16.0 g/dL [facility] Interpretation and review of laboratory results Abnormal [facility] MCH (RBC) [Entitic mass] 27.3 pg 26.0 - 34.0 pg [facility] MCHC (RBC) [Mass/Vol] 32.7 % 32.0 - 36.0 % [facility] MCV (RBC) [Entitic vol] 83.4 fL 80.0 - 98.0 fL [facility] Platelet mean volume (Bld) [Entitic vol] 9.5 fL 7.4 - 12.4 fL [facility] Platelets (Bld) [#/Vol] 348 10*3/uL 140 - 440 10*3/uL [facility] RBC (Bld) [#/Vol] 3.96 10*6/uL 3.8 - 5.20 10*6/uL [facility] WBC (Bld) [#/Vol] 10.2 10*3/uL 3.6 - 10.7 10*3/uL [facility] CT ABDOMEN PELVIS WO IV CONT VIDHITon 09-27-2022 CT ABDOMEN PELVIS WO IV CONTRAST [facility] Name[facility] 1960 [id number] Exam Date/Time: 09/27/2022 01:26 Procedure: CT ABDOMEN [...] Electronically Signed Date/Time: 09/27/2022 1:52 AM EDT [facility] CT Abdomen WO contraston 1. No acute abnormality identified. 2. Stable renal lesions hyperdense foci, likely hemorrhagic cysts. 3. Sigmoid diverticulosis. Report Dictated on Electronically Signed By: Vijay Luo Electronically Signed Date/Time: 09/27/2022 1:52 AM EDT [facility] Patient Name: CATAR[facility] 1960 [id number] Exam Date/Time: 09/27/2022 01:26 Procedure: CT ABDOMEN [...] identified. Pelvic lymphadenopathy: None. Osseous structures: Normal. [facility] Vijay Luo MD - 09/27/2022 Patient Name: CATAR[facility] 1960 [id number] Exam Date/Time: 09/27/2022 01:26 Procedure: CT ABDOMEN [...] Date/Time: 09/27/2022 1:52 AM EDT [facility] Radiology Study observation (narrative) [facility] alth CT Abdomen WO Bharathe d By: Vijay Luo on 09-27-2022 [facility] Work Phone: Calcium.ionized [Moles/Vol]o n 09-27-2022 Calcium.ionized (Bld) [Moles/Vol] 4.50 mg/dL 4.30 - 5.20 mg/dL [facility] Interpretation and review of laboratory results Normal [facility] PH, IONIZED CALCIUM 7.35 7.31 - 7.46 [facility] Calcium.ionized [Moles/Vol]O rdered By: Makenzie Lal on 09-27-2022 Calcium.ionized (Bld) [Moles/Vol] 4.20 mg/dL Low 4.30 - 5.20 mg/dL [facility] Interpretation and review of laboratory results Abnormal [facility] PH, IONIZED CALCIUM 7.31 7.31 - 7.46 [facility] Calcium.ionized [Moles/Vol]O rdered By: Toni Castaneda on 09-27-2022 Calcium.ionized (Bld) [Moles/Vol] 3.60 mg/dL Low 4.30 - 5.20 mg/dL [facility] Interpretation and review of laboratory results Abnormal [facility] PH, IONIZED CALCIUM 7.33 7.31 - 7.46 [facility] Comprehensive metabolic 1998 panelon 09-27-2022 Albumin [Mass/Vol] 4.6 g/dL 3.5 - 5.0 g/dL [facility] ALP [Catalytic activity/Vol] 95 U/L 38 - 126 U/L [facility] ALT [Catalytic activity/Vol] 10 U/L 0 - 34 U/L [facility] Anion gap [Moles/Vol] 12 mmol/L 3 - 13 mmol/L [facility] AST [Catalytic activity/Vol] 18 U/L 15 - 46 U/L [facility] Bilirubin [Mass/Vol] 0.5 mg/dL 0.2 - 1 .3 mg/dL [facility] Calcium [Mass/Vol] 7.2 mg/dL Low 8.4 - 10. 4 mg/dL [facility] Chloride [Moles/Vol] 110 mmol/L High 98 - 10 7 mmol/L [facility] CO2 [Moles/Vol] 17 mmol/L Low 22 - 30 mmol/L [facility] Creatinine [Mass/Vol] 2.53 mg/dL High 0.52 - 1.04 mg/dL [facility] GFR/1.73 sq M.predicted MDRD (S/P/Bld) [Vol rate/Area] 21.2 mL/min/{1.73_m2} Low - PINF [facility] Comment on above: Calculation based on the Chronic Kidney Disease Epidemiology Collaboration (CKD-EPI) equation refit without adjustment for race Glucose [Mass/Vol] 114 mg/dL High 70 - 100 mg/dL [facility] Interpretation and review of laboratory results Abnormal [facility] Potassium [Moles/Vol] 4.3 mmol/L 3.5 - 5.1 mmol/L [facility] Protein [Mass/Vol] 7.6 g/dL 6.3 - 8.2 g/dL [facility] Sodium [Moles/Vol] 138 mmol/L 135 - 145 mmol/L [facility] Urea nitrogen [Mass/Vol] 27 mg/dL High 7 - 17 mg/dL [facility] Consulton 09-27-2022 Consult Type and Reason for [...] (interosseous) Fluid Accumulation: No significant fluid accumulation [employer] Labor 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 Adia Glez RN 09/27/22 0059 [facility] ED Nursing Note Bed: 13 Expected date: 09/27/22 Expected time: Means of arrival: Comments: Triage B Jessi Thurman RN 09/27/22 0156 Normal [facility] ED Nursing Note Pt presented to ED with complaints of nausea, vomiting, diarrhea, shakiness and generalized weakness. Pt states she has been sick for about a week and is not getting better. Pt is unable to keep food or drink down. Pt has had a fever and chills as well. Normal [facility] ED Provider Noteon ED Provider Note EMERGENCY [...] kidney disease) stage 4, GFR 15-29 ml/min ([facility]) Follows with Dr. Moreno Focal segmental glomerulosclerosis [...] (more content not included)... Normal [facility] Gastrointestinal pathogens p alejandra MINDY+probe (Stl)Ordered By: Mary Jo Holloway on 09-27-2022 Adenovirus F 40/41 Not detected Not Detected [facility] Astrovirus Not detected Not Detected [facility] Campylobacter Not detected Not Detected [facility] Cryptosporidium Not detected Not Detected [facility] Cyclospora cayetanensis Not detected Not Detect ed [facility] Entamoeba histolytica Not detected Not Detected [facility] Enterotoxigenic E coli (ETEC) Not detected Not Detected [facility] Giardia lamblia Not detected Not Detected [facility] Interpretation and review of laboratory results Normal [facility] Norovirus GI/GII Not detected Not Detected [facility] Plesiomonas shigelloides Not detected Not Detected [facility] Rotavirus A Not detected Not Detected [facility] Sal[facility] detected Not Detected [facility] Sapovirus Not detected Not Detected [facility] Shiga toxin-producing E coli (STEC) Not detected Not Detected [facility] Shigella/Enteroinvasive E coli (EIEC) Not detected Not Detected [facility] Vibrio cholerae Not detected Not Detected [facility] Vibrio species Not detected Not Detected [facility] Yersinia enterocolitica Not detected Not Detect ed [facility] Methodology: Multiplex PCR [facility] Hepatitis 1996 panel (S)on 0 09-27-2022 HAV IgM IA Ql Not detected Not Detected [facility] HBV core IgM IA Ql Not detected Not Detected [facility] HBV surface Ag IA Ql Not detected Not Detected [facility] HCV Ab IA Ql Not detected Not Detected [facility] alth Comment on above: Patients with DETECT ED Hepatitis C Ab results should have a new specimen submitted for supplemental testing with a Hepatitis C Quantitative RNA assay (viral load), if clinically indicated. Interpretation and review of laboratory results Normal [facility] Laboratory - Chemistry and C hemistry - challengeon 09-27-2022 Magnesium [Mass/Vol] 1.7 mg/dL 1.6 - 2 .3 mg/dL [facility] Magnesium [Mass/Vol] 1.6 mg/dL 1.6 - 2 .3 mg/dL [facility] TSH Qn 1.965 m[IU]/L [facility] Lactate [Moles/Vol] 0.8 mmol/L 0.7 - 2. 0 mmol/L [facility] Magnesium [Mass/Vol] mg/dL Critically low 1.6 - 2.3 mg/dL [facility] Lipase [Catalytic activity/Vol] 186 U/L 23 - 300 U/L [facility] Laboratory - Microbiology an d Antimicrobial susceptibilityon 09-27-2022 FLUAV RNA MINDY+probe Ql (Resp) Not detected Not Detected [facility] FLUBV RNA MINDY+probe Ql (Resp) Not detected Not Detected [facility] RSV RNA MINDY+probe Ql (Resp) Not detected Not Detected [facility] SARS-CoV-2 (COVID-19) RNA MINDY+probe Ql (Resp) Not detected Not Detected [facility] alth SARS-CoV-2 (COVID-19) RNA MINDY+probe Ql (Unsp spec) Methodology: real-time, RT-PCR The SARS-CoV-2, Flu A/B, and RSV Combo assay is intended for in vitro diagnostic use under the FDA Emergency Use Authorization (EUA). This test has not been FDA cleared or approved. In compliance with this authorization, please visit www.fda.gov/media/264 435/download or www.fda.gov/media/142 436/download to access the applicable information sheets. [facility] Lipase [Catalytic activity/V ol]on 09-27-2022 Interpretation and review of laboratory results Normal [facility] Magnesium [Mass/Vol]on 09-27 Interpretation and review of laboratory results Normal [facility] Interpretation and review of laboratory results Abnormal [facility] No Panel Informationon 09-27 Interpretation and review of laboratory results Abnormal [facility] Stoney Maurice MD - 09/27/2022 IMPRESSION: Sinus rhythm Abnormal R-wave progression, early transition Nonspecific T abnormalities, lateral leads Compared to ECG 10/01/2021 15:33:29 T-wave abnormality now present Electronically Signed On 09-27-2022 14:44:39 EDT by Stoney Grimmowell [facility] Interpretation and review of laboratory results Normal [facility] Interpretation and review of laboratory results Normal [facility] No Panel InformationOrdered By: Stoney Maurice on 09-27-2022 P [place] 28 degrees [facility] Work Phone: IA Interval 136 ms [facility] Work Phone: QRS [place] 7 degrees [facility] Work Phone: QRSD Interval 90 ms [facility] [employer] Work Phone: QT Interval 387 ms [facility] Work Phone: QTC Interval 413 ms [facility] Work Phone: T Wave [place] 98 degrees [facility] Work Phone: [facility] Work Phone: Phosphate [Moles/Vol]on Phosphate [Mass/Vol] 5.4 mg/dL High 2.5 - 4 .5 mg/dL [facility] Phosphate [Mass/Vol] 4.4 mg/dL 2.5 - 4 .5 mg/dL [facility] Interpretation and review of laboratory results Normal [facility] Phosphate [Mass/Vol] 4.3 mg/dL 2.5 - 4 .5 mg/dL [facility] Progress Noteon 09-27-2022 Progress Note Nutrition Assessment [...] (interosseous) Fluid Accumulation: No significant fluid accumulation [employer] 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: 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-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: Chief Complaint: Nausea/Vomiting/Diarr hea HPI: This is [...] On: Kcal/kg Weight Used for Energy Requirements: [place] Weight for Energy Calculation (kg): 52 kg Total Energy Requirements (kcals/day): 28-32 or 4694-4022 Weight Used for Protein Requirements: [place] Weight in Kg Used for Protein Requirements: 52 kg Estimated Total Protein (g/day): .8-1 or 42-52 Estimated Daily Total Fluid (ml/day): or per md Nutrition Related Findings: 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 -NO APPETITE,nausea resolved with phenergan, ca 4.2, [...] lb) (07/21/22) % Weight Change (Calculated): -7.7 [place] Body Weight (lbs) (Calculated): 115 lbs [place] Body Weight (Kg) (Calculated): 52 kg % [place] Body Weight (Calculated): 187 % BMI (kg/m2) (Calculated): 38.1 BMI Categories: Obese Class 2 (BMI 35.0 -39.9) Nutrition Diagnosis: Severe malnutrition, Inadequate protein-energy intake related to inadequate protein-energy intake, early satiety as evidenced by poor intake prior to admission, intake 0-25%, nausea, vomiting, diarrhea, reduced welder metal fab strength, moderate muscle loss, weight loss (7.7 in 2 mos documented - low po 10 days) Alte (more content not included)... Normal [facility] Respiratory pathogens DNA an d RNA panel MINDY+probe (Nph)on 09-27-2022 Adenovirus Not detected Not Detected [facility] B. pertussis DNA MINDY+probe Ql (Unsp spec) Not detected Not Detected [facility] Bordetella parapertussis Not detected Not Detected [facility] Chlamydia pneumoniae Not detected Not Detected [facility] Coronavirus 229E Not detected Not Detected [facility] Coronavirus HKU1 Not detected Not Detected [facility] Coronavirus NL63 Not detected Not Detected [facility] Coronavirus OC43 Not detected Not Detected [facility] FLUAV RNA MINDY+non-probe Ql (Nph) Not detected Not Detected [facility] FLUBV RNA MINDY+non-probe Ql (Nph) Not detected Not Detected [facility] Human Metapneumovirus Not detected Not Detected [facility] Human Rhinovirus/Enterovirus Not detected Not Detected [facility] Interpretation and review of laboratory results Normal [facility] Mycoplasma pneumoniae Not detected Not Detected [facility] Parainfluenza 1 Not detected Not Detected [facility] Parainfluenza 2 Not detected Not Detected [facility] Parainfluenza 3 Not detected Not Detected [facility] Parainfluenza 4 Not detected Not Detected [facility] Respiratory Syncytial Virus Not detected Not Detected [facility] SARS-CoV-2 (COVID-19) RNA MINDY+non-probe Ql (Nph) Not detected Not Detected [facility] Methodology: Multiplex PCR [facility] SARS-CoV-2, Flu A/B, and RSV Comboon 09-27-2022 Interpretation and review of laboratory results Normal [facility] TSH Qnon 09-27-2022 Interpretation and review of laboratory results Normal [facility] Vital signsOrdered By: Stoney Maurice on 09-27-2022 Heart rate 68 /min bpm [employer] Work Phone: Op Noteon 01-20-2022 Op Note [...] the recovery room in satisfactory condition. Normal [facility] Surgical Pathologyon 022 Surgical Pathology [id number] [facility] PATHOLOGY AND LABORATORY MEDICINE [address] [place] [id number] FINAL SURGICAL PATHOLOGY REPORT NAME: CATAIRNA BOYER [id number] : 1960 61 Y F [facility] NO.: [id number] LOCATION: [place] [address] PROCEDURE 01/20/2022 DATE: SURGEON: SALONI HUSSEIN M.D. [...] cystic duct, gallbladder, or within the container. Terrestrial Ecologist sections are submitted in a single cassette. [id number] Disclaimer: The following statement applies to all immunohistochemistry, in situ hybridization, molecular studies, and immunofluorescence testing. The use of one or more reagents in the above tests is regulated as an analyte specific reagent (ASR). These tests were developed and their performance characteristics determined by the clinical laboratories of [facility]. They have not been cleared by the [...] negativity on decalcified specimens. Professional Performing Location: [place] [address]. DEPARTMENT OF PATHOLOGY AND LABORATORY MEDICINE [place], [place] [address] [email or web address] Normal [facility] VL Mesenteric Artery Duplex Scanon 12-14-2021 [facility] -------- Mesenteric Artery Duplex Report Patient Merlin : 1960 Study 12/14/2021 Name: Catarina Bear (61yrs) Date: Patient [id number] Age: 61 Account: [id number] ID: Gender: F Loc: BP: Ordering Physician: Gloria Solomon Public Speaking Teacher: Jose Hopkins T Interpreting Physician: Quinton Morrow MD -------- Location: [facility] -------- Indications: LUQ and abdominal pian. -------- [...] supine position. Images were obtained using a [employer] vascular ultrasound machine. The abdominal aorta and [...] signed by Quinton Morrow MD 12/14/2021 19:32 [facility] CARD[facility] Quinton Morrow MD - 12/14/2021 [facility] -------- Mesenteric Artery Duplex Report Patient DO MerlinB: 1960 Study 12/14/2021 Name: Catarina Bear (61yrs) Date: Patient [id number] Age: 61 Account: [id number] ID: Gender: F Loc: BP: Ordering Physician: Gloria Solomon Public Speaking Teacher: Jose Hopkins T Interpreting Physician: Quinton Morrow MD -------- Location: [facility] -------- Indications: LUQ and abdominal pian. -------- [...] supine position. Images were obtained using a [employer] vascular ultrasound machine. The abdominal aorta and [...] signed by Quinton Morrow MD 12/14/2021 19:32 [employer] Work Phone: Radiology Study observation (narrative) [employer] Work Phone: VL Mesenteric Artery Duplex ScanOrdered By: Quinton Morrow on 12-14-2021 [facility] Work Phone: VL Mesenteric Duplexon 12-14 VL Mesenteric Duplex Patient Name: CATARINA AGUILAR Ultrasound ACCESSION EXAM DATE/TIME PROCEDURE ORDERING PROVIDER [id number] 12/14/2021 10:41 EDT VL Mesenteric Duplex QING SOLOMONCNP-GLORIA GRIMM CPT code 69574 Reason For Exam (VL Mesenteric Duplex) epigastric and LUQ abdominal pain Report [facility] -------- Mesenteric Artery Duplex Report Patient DO MerlinB: 1960 Study 12/14/2021 Name: Catarina Bear (61yrs) Date: Patient [id number] Age: 61 Account: [id number] ID: Gender: F Loc: BP: Ordering Physician: Gloria Solomon Public Speaking Teacher: Jose Hopkins T Interpreting Physician: Quinton Morrow MD -------- Location: [facility] -------- Indications: LUQ and abdominal pian. -------- [...] supine position. Images were obtained using a [employer] vascular ultrasound machine. The abdominal aorta and [...] QUINTON MORROW Cardiovascular ACCESSION EXAM DATE/TIME PROCEDURE [id number] 12/14/2021 10:41 EDT VL Mesenteric Duplex CPT code 02623 Reason For Exam (VL Mesenteric Duplex) epigastric and LUQ abdominal pain Report [facility] -------- Mesenteric Artery Duplex Report Cardiovascular Report Patient Merlin : 1960 Study 12/14/2021 Name: Catarina Bear (61yrs) Date: Patient [id number] Age: 61 Account: [id number] ID: Gender: F Loc: BP: Ordering Physician: Gloria Solomon Public Speaking Teacher: Jose Hopkins RVT Interpreting Physician: Quinton Morrow MD -------- Location: [facility] -------- Indications: LUQ and abdominal pian. -------- Conclusions Study is negative for stenosis involving the celiac irineo (more content not included)... Normal [facility] NM GASTRIC EMPTYINGon 2021 Patient Name: CATARINA BOYER Nuclear Medicine ACCESSION EXAM DATE/TIME PROCEDURE ORDERING PROVIDER [id number] 11/24/2021 10:04 EDT NM Gastric Emptying BARRY, PATRICK-ALFA, Study GLORIA E CPT code 56751 Reason For Exam (NM Gastric Emptying Study) [...] JOHN Transcribed Date and Time: 11/24/2021 10:14 [facility] Donald Rodriguez MD - 11/24/2021 Patient Name: CATARINA BOYER Nuclear Medicine ACCESSION EXAM DATE/TIME PROCEDURE ORDERING PROVIDER [id number] 11/24/2021 10:04 EDT NM Gastric Emptying PATRICK SOLOMON-ALFA, Study GLORIA E CPT code 22948 Reason For Exam (NM Gastric Emptying Study) [...] JOHN Transcribed Date and Time: 11/24/2021 10:14 [facility] Work Phone: Radiology Study observation (narrative) [facility] Work Phone: NM GASTRIC EMPTYINGOrdered B y: Donald Eloy on 11-24-2021 [facility] Work Phone: NM Gastric Emptying Studyon 11-24-2021 NM Gastric Emptying Study Patient Name: CATARINA BOYER Nuclear Medicine ACCESSION EXAM DATE/TIME PROCEDURE ORDERING PROVIDER [id number] 11/24/2021 10:04 EDT NM Gastric Emptying CAMILO SOLOMON, Study GLORIA Barragan CPT code 83312 Reason For Exam (NM Gastric Emptying Study) [...] Transcribed Date and Time: 11/24/2021 10:14 Normal [facility] Ova Parasite Exam, Fecalon 0 10-08-2021 Ova Parasite, Interp Negative Normal Negative [facility] Comment on above: Result Comment: INTE [...] Microsporidia. For additional test information refer to Live[employer] consult, [email or web address] Performed By: [employer] [address] [place] [id number] Medical Editor: Valentina Moyer MD Performed By: #### B FGI #### [address] [address] #### FOCC #### [facility] [address] [facility] [place] [address] #### OVPO #### The performing lab is in the report. GASTROINTESTINAL PCR PANELon 10-03-2021 GASTROINTESTINAL PCR PANEL GASTROINTESTINAL PCR PANEL --> Status: F NEGATIVE: No targets were detected by the [facility] PCR Panel. _ The [employer] Gastrointestinal PCR Panel can detect the following targets: Campylobacter, Plesiomonas shigelloides, Salmonella, Vibrio species, Vibrio cholerae, Yersinia enterocolitica, Shiga toxin-producing E coli (STEC) including E coli O157, Enterotoxigenic E coli (ETEC), Shigella/Enteroinvasi ve E coli (EIEC), Cryptosporidium, Cyclospora cayetanensis, Entamoeba histolytica, Giardia lamblia, Adenovirus F 40/41, Astrovirus, Norovirus GI/GII, Rotavirus A, Sapovirus Gastrointestinal PCR Panel. _ The [employer] Gastrointestinal PCR Panel can detect the following targets: Campylobacter, Plesiomonas shigelloides, Salmonella, Vibrio species, Vibrio cholerae, Yersinia enterocolitica, Shiga toxin-producing E coli (STEC) including E coli O157, Enterotoxigenic E coli (ETEC), Shigella/Enteroinvasi ve E coli (EIEC), Cryptosporidium, Cyclospora cayetanensis, Entamoeba histolytica, Giardia lamblia, Adenovirus F 40/41, Astrovirus, Norovirus GI/GII, Rotavirus A, Sapovirus Normal [facility] Comment on above: Performed By: #### B FGI #### [address] #### FOCC #### [facility] [address] [facility] [place] [address] #### OVPO #### The performing lab is [...] suggest a new specimen be submitted. Normal [facility] Comment on above: Performed By: #### B FGI #### [address] #### FOCC #### [place] [address] #### OVPO #### The performing lab is in the report. Comp Metabolic Panelon 10-02 ALT [Catalytic activity/Vol] 10 U/L Normal 0-34 [facility] Comment on above: Result Comment: The ALT test is performed by an updated assay method. Please note that the reference intervals have been changed and are now sex specific. Performed By: #### B FGI #### [address] #### FOCC #### [facility] [address] [place] [address] #### OVPO #### The performing lab is in the report. Calcium [Mass/Vol] 8.9 mg/dL Normal 8.4-10.4 [facility] Comment on above: Performed By: #### B FGI #### [address] #### FOCC #### [facility] [address] [place] [address] #### OVPO #### The performing lab is in the report. ALP [Catalytic activity/Vol] 95 U/L Normal 38-126 [facility] Comment on above: Performed By: #### B FGI #### [address] [address] [address] [place], [place] #### FOCC #### [facility] [address] [place] [address] #### OVPO #### The performing lab is in the report. Anion gap [Moles/Vol] 9 mmol/L Normal 3-13 [facility] Comment on above: Performed By: #### B FGI #### [address] [address] [address] [place], [place] #### FOCC #### [facility] [address] [place] [address] #### OVPO #### The performing lab is in the report. AST [Catalytic activity/Vol] 14 U/L Low 15-46 [facility] Comment on above: Performed By: #### B FGI #### [address] [address] [address] [place], [place] #### FOCC #### [facility] [address] [place] [address] #### OVPO #### The performing lab is in the report. Bilirubin [Mass/Vol] 0.4 mg/dL Normal 0.2-1.3 [facility] Comment on above: Performed By: #### B FGI #### [address] [address] [place], [place] #### FOCC #### [facility] [address] [place] [address] #### OVPO #### The performing lab is in the report. CO2 [Moles/Vol] 20 mmol/L Low 22-30 [facility] Comment on above: Performed By: #### B FGI #### [address] [address] [address] [place], [place] #### FOCC #### [facility] [address] [place] [address] #### OVPO #### The performing lab is in the report. Creatinine [Mass/Vol] 2.36 mg/dL High 0.52-1.25 [facility] Comment on above: Performed By: #### B FGI #### [facility] [address] [place], [place] #### FOCC #### [facility] [address] [place] [address] #### OVPO #### The performing lab is in the report. GFR/1.73 sq M.predicted among blacks MDRD (S/P/Bld) [Vol rate/Area] 25.2 mL/min/{1.73_m2} Abnormal >60 [facility] Comment on above: Performed By: #### B FGI #### [address] [address] [place], [place] #### FOCC #### [facility] [address] [place] [address] #### OVPO #### The performing lab is in the report. GFR/1.73 sq M.predicted among non-blacks MDRD (S/P/Bld) [Vol rate/Area] 21.7 mL/min/{1.73_m2} Abnormal >60 [facility] Comment on above: Result Comment: KDIG [...] secretion. Performed By: #### B FGI #### [facility] [address] [place], [place] #### FOCC #### [facility] [address] [facility] [place] [address] #### OVPO #### The performing lab is in the report. Glucose [Mass/Vol] 152 mg/dL High 70-100 [facility] Comment on above: Performed By: #### B FGI #### [address] [address] [address] [place], [place] #### FOCC #### [facility] [address] [place] [address] #### OVPO #### The performing lab is in the report. Protein [Mass/Vol] 7.0 g/dL Normal 6.3-8.2 [facility] Comment on above: Performed By: #### B FGI #### [address] [address] [address] [place], [place] #### FOCC #### [address] [place] [address] #### OVPO #### The performing lab is in the report. Urea nitrogen [Mass/Vol] 20 mg/dL Normal 9-20 [facility] Comment on above: Performed By: #### B FGI #### [address] [address] [address] [place], [place] #### FOCC #### [place] [address] #### OVPO #### The performing lab is in the report. Potassium [Moles/Vol] 4.8 mmol/L Normal 3.5-5.1 [facility] Comment on above: Performed By: #### B FGI #### [address] [address] [place], [place] #### FOCC #### [place] [address] #### OVPO #### The performing lab is in the report. Sodium [Moles/Vol] 138 mmol/L Normal 135-145 [facility] Comment on above: Performed By: #### B FGI #### [address] [address] [address] [place], [place] #### FOCC #### [address] [place] [address] #### OVPO #### The performing lab is in the report. Albumin [Mass/Vol] 4.3 g/dL Normal 3.5-5.0 [facility] Comment on above: Performed By: #### B FGI #### [address] [address] [address] [place] #### FOCC #### [facility] [address] [facility] [place] [address] #### OVPO #### The performing lab is in the report. Chloride [Moles/Vol] 110 mmol/L High 98-107 [facility] Comment on above: Performed By: #### B FGI #### [address] #### FOCC #### [place] [address] #### OVPO #### The performing lab is in the report. Fecal Occult,Stool Single Sp econ 10-02-2021 Fecal Occult,Stool Single Spec Negative Normal Negative [facility] Comment on above: Performed By: #### B FGI #### [address] [address] [address] [place], [place] #### FOCC #### [place] [address] #### OVPO #### The performing lab is in the report. Hemogram w/ Autodiffon 10-02 Abs Baso Cnt 0.0 10*3/uL Normal 0.0-0.2 [facility] Comment on above: Performed By: #### B FGI #### [address] [address] [address] [place], [place] #### FOCC #### [address] [place] [address] #### OVPO #### The performing lab is in the report. Abs Neutrophile Cnt 5.9 10*3/uL Normal 1.8-7.0 [facility] Comment on above: Performed By: #### B FGI #### [address] [address] [address] [place], [place] #### FOCC #### [facility] [address] [place] [address] #### OVPO #### The performing lab is in the report. Basophils/100 WBC (Bld) 0.5 % Normal 0.0-2.0 [facility] Comment on above: Performed By: #### B FGI #### [address] [address] [address] [place], [place] #### FOCC #### [facility] [address] [place] [address] #### OVPO #### The performing lab is in the report. Eosinophils (Bld) [#/Vol] 0.1 10*3/uL Normal 0.0-0.5 [facility] Comment on above: Performed By: #### B FGI #### [address] [place], [place] #### FOCC #### [facility] [address] [place] [address] #### OVPO #### The performing lab is in the report. Eosinophils/100 WBC (Bld) 0.9 % Low 1.0-6.0 [facility] Comment on above: Performed By: #### B FGI #### [address] [address] [address] [place], [place] #### FOCC #### [facility] [address] [facility] [place] [address] #### OVPO #### The performing lab is in the report. Erythrocyte distribution width (RBC) [Ratio] 13.1 % Normal 11.5-14.5 [facility] Comment on above: Performed By: #### B FGI #### [address] #### FOCC #### [facility] [address] [place] [address] #### OVPO #### The performing lab is in the report. Granulocytes/100 WBC (Bld) 68.3 % Normal 40.0-80.0 [facility] Comment on above: Performed By: #### B FGI #### [address] [address] [address] [place], [place] #### FOCC #### [facility] [address] [place] [address] #### OVPO #### The performing lab is in the report. Hematocrit (Bld) [Volume fraction] 32.5 % Low 35.0-47.0 [facility] Comment on above: Performed By: #### B FGI #### [address] [address] [place], [place] #### FOCC #### [place] [address] #### OVPO #### The performing lab is in the report. Hemoglobin (Bld) [Mass/Vol] 10.9 g/dL Low 11.7-16.0 [facility] Comment on above: Performed By: #### B FGI #### [address] [place], [place] #### FOCC #### [place] [address] #### OVPO #### The performing lab is in the report. Lymphocytes (Bld) [#/Vol] 2.0 10*3/uL Normal 1.0-4.3 [facility] Comment on above: Performed By: #### B FGI #### [address] [address] [address] [place], [place] #### FOCC #### [facility] [address] [place] [address] #### OVPO #### The performing lab is in the report. Lymphocytes/100 WBC (Bld) 22.9 % Normal 20.0-40.0 [facility] Comment on above: Performed By: #### B FGI #### [address] #### FOCC #### [place] [address] #### OVPO #### The performing lab is in the report. MCH (RBC) [Entitic mass] 28.7 pg Normal 26.0-34.0 [facility] Comment on above: Performed By: #### B FGI #### [address] #### FOCC #### [place] [address] #### OVPO #### The performing lab is in the report. MCHC 33.5 % Normal 32.0-36.0 [facility] Comment on above: Performed By: #### B FGI #### [address] #### FOCC #### [place] [address] #### OVPO #### The performing lab is in the report. MCV (RBC) [Entitic vol] 85.5 fL Normal 79.0-98.0 [facility] Comment on above: Performed By: #### B FGI #### [address] #### FOCC #### [place] [address] #### OVPO #### The performing lab is in the report. Monocytes (Bld) [#/Vol] 0.6 10*3/uL Normal 0.0-0.8 [facility] Comment on above: Performed By: #### B FGI #### [address] #### FOCC #### [place] [address] #### OVPO #### The performing lab is in the report. Monocytes/100 WBC (Bld) 6.6 % Normal 2.0-10.0 [facility] Comment on above: Performed By: #### B FGI #### [address] [address] [place], [place] #### FOCC #### [facility] [address] [place] [address] #### OVPO #### The performing lab is in the report. Platelet mean volume (Bld) [Entitic vol] 10.5 fL Normal 7.4-12.4 [facility] Comment on above: Result Comment: MPV is a calculated measurement using platelet volume ratio. Performed By: #### B FGI #### [address] #### FOCC #### [facility] [address] [place] [address] #### OVPO #### The performing lab is in the report. Platelets (Bld) [#/Vol] 359 10*3/uL Normal 140-440 [facility] Comment on above: Performed By: #### B FGI #### [address] #### FOCC #### [facility] [address] [place] [address] #### OVPO #### The performing lab is in the report. RBC (Bld) [#/Vol] 3.80 10*6/uL Normal 3.80-5.20 [facility] Comment on above: Performed By: #### B FGI #### [address] #### FOCC #### [facility] [address] [place] [address] #### OVPO #### The performing lab is in the report. WBC (Bld) [#/Vol] 8.7 10*3/uL Normal 3.6-10.7 [facility] Comment on above: Performed By: #### B FGI #### [address] #### FOCC #### [facility] [address] [place] [address] #### OVPO #### The performing lab is in the report. Lipaseon 10-02-2021 Lipase [Catalytic activity/Vol] 156 U/L Normal 23-300 [facility] Comment on above: Performed By: #### B FGI #### [facility] [address] [place], [place] #### FOCC #### [facility] [address] [place] [address] #### OVPO #### The performing lab is in the report. Lipid Panelon 10-02-2021 Chol/HDL 4 Normal [facility] Comment on above: Result Comment: Ref Range: < 3 Low Risk for CHD 3-6 Mod Risk for CHD > 6 High Risk for CHD Performed By: #### B FGI #### [facility] [address] [place], [place] #### FOCC #### [facility] [address] [place] [address] #### OVPO #### The performing lab is in the report. Cholesterol [Mass/Vol] 162 mg/dL Normal < 200 [facility] Comment on above: Performed By: #### B FGI #### [facility] [address] [place], [place] #### FOCC #### [facility] [address] [place] [address] #### OVPO #### The performing lab is in the report. Cholesterol in HDL [Mass/Vol] 41 mg/dL Normal 40-60 [facility] Comment on above: Performed By: #### B FGI #### [facility] [address] [place], [place] #### FOCC #### [facility] [address] [place] [address] #### OVPO #### The performing lab is in the report. Low Density Lipoprotein 57 mg/dL Normal <100 [facility] Comment on above: Performed By: #### B FGI #### [facility] [address] [place] [address] #### FOCC #### [facility] [address] [facility] [place] [place] [address] #### OVPO #### The performing lab is in the report. Triglyceride [Mass/Vol] 322 mg/dL Abnormal <150 [facility] Comment on above: Performed By: #### B FGI #### [facility] [address] [place] [address] #### FOCC #### [facility] [address] [facility] [place] [place] [address] #### OVPO #### The performing lab is in the report. CBC with Auto Differentialon 10-01-2021 Absolute Baso # 0.0 10*3/uL 0.0 - 0.2 10*3/uL [facility] Work Phone: Absolute Neut # 5.5 10*3/uL 1.8 - 7.0 10*3/uL [facility] Work Phone: Basophils/100 WBC (Bld) 0.4 % 0.0 - 2.0 % [employer] Work Phone: Eosinophils (Bld) [#/Vol] 0.1 10*3/uL 0.0 - 0.5 10*3/uL [facility] Work Phone: Eosinophils/100 WBC (Bld) 1.2 % 1.0 - 6.0 % [facility] Work Phone: Granulocytes/100 WBC (Bld) 62.4 % 40.0 - 80.0 % [facility] Work Phone: Hematocrit (Bld) [Volume fraction] 32.6 % Low 35.0 - 47.0 % [employer] Work Phone: Hemoglobin (Bld) [Mass/Vol] 11.0 g/dL Low 11.7 - 16.0 g/dL [facility] Work Phone: Interpretation and review of laboratory results Abnormal [facility] Work Phone: Lymphocytes (Bld) [#/Vol] 2.5 10*3/uL 1.0 - 4.3 10*3/uL [employer] Work Phone: Lymphocytes/100 WBC (Bld) 28.3 % 20.0 - 40.0 % [employer] Work Phone: MCH (RBC) [Entitic mass] 28.4 pg 26.0 - 34.0 pg [employer] Work Phone: MCHC (RBC) [Mass/Vol] 33.7 % 32.0 - 36.0 % [employer] Work Phone: MCV (RBC) [Entitic vol] 84.0 fL 79.0 - 98.0 fL [employer] Phone: Monocytes (Bld) [#/Vol] 0.6 10*3/uL 0.0 - 0.8 10*3/uL [employer] Work Phone: Monocytes/100 WBC (Bld) 6.9 % 2.0 - 10.0 % [employer] Work Phone: Platelet distribution width (Bld) [Ratio] 13.0 % 11.5 - 14.5 % [employer] Phone: Platelet mean volume (Bld) [Entitic vol] 10.2 fL 7.4 - 12.4 fL [employer] Phone: Comment on above: MPV is a calculated measurement using platelet volume ratio. Platelets (Bld) [#/Vol] 342 10*3/uL 140 - 440 10*3/uL [employer] Work Phone: RBC (Bld) [#/Vol] 3.88 10*6/uL 3.80 - 5.2 0 10*6/uL [employer] Work Phone: WBC (Bld) [#/Vol] 8.9 10*3/uL 3.6 - 10.7 10*3/uL [employer] Work Phone: Test Performed by [employer], [address] , [place], [place] [id number] [place] [address] Work Phone: CT Abdomen Pelvis Wo Hussain guy 10-01-2021 Patient Name: CATARINA BOYER Computed Tomography ACCESSION EXAM DATE/TIME PROCEDURE ORDERING PROVIDER [id number] 10/01/2021 16:[address] Abdomen/Pelvis (Marcia CH MD, DAVID L PO, No IV) CPT code 87935 Reason For Exam (CT Abdomen/Pelvis (No PO, [...] MD - 10/01/2021 [id number] ACCESSION EXAM DATE/TIME PROCEDURE ORDERING PROVIDER [id number] 10/01/2021 16:[address] Abdomen/Pelvis (No MD CH DAVID L PO, No IV) CPT code 28250 Reason For Exam (CT Abdomen/Pelvis (No PO, [...] LAURA Transcribed Date and Time: 10/01/2021 4:37 [facility] Work [facility]: Radiology Study observation (narrative) [facility] Work Phone: CT Abdomen Pelvis Wo Contras tOrdered By: Melani Noyola on 10-01-2021 [facility]: CT Abdomen/Pelvis w/o Contra ston 10-01-2021 CT Abdomen/Pelvis w/o Contrast [facility]: [id number] Comput[facility] Tomography ACCESSION EXAM DATE/TIME PROCEDURE ORDERING PROVIDER [phone] 10/01/2021 16:[address] Abdomen/Pelvis (No MD CH DAVID L PO, No IV) CPT code 30215 Reason For Exam (CT Abdomen/Pelvis (No PO, [...] Transcribed Date and Time: 10/01/2021 4:37 Normal [facility] Comp Metabolic Panelon 10-01 ALP [Catalytic activity/Vol] 106 U/L Normal 38-126 [facility] Comment on above: Performed By: #### B FGI #### [address] #### FOCC #### [facility] [address] [place] [address] #### OVPO #### The performing lab is in the report. ALT [Catalytic activity/Vol] 9 U/L Normal 0-34 [facility] Comment on above: Result Comment: The ALT test is performed by an updated assay method. Please note that the reference intervals have been changed and are now sex specific. Performed By: #### B FGI #### [address] [address] [place], [place] #### FOCC #### [facility] [address] [place] [address] #### OVPO #### The performing lab is in the report. AST [Catalytic activity/Vol] 14 U/L Low 15-46 [facility] Comment on above: Performed By: #### B FGI #### [address] [address] [place], [place] #### FOCC #### [facility] [address] [place] [address] #### OVPO #### The performing lab is in the report. Calcium [Mass/Vol] 8.9 mg/dL Normal 8.4-10.4 [facility] Comment on above: Performed By: #### B FGI #### [address] [place], [place] #### FOCC #### [facility] [address] [facility] [place] [address] #### OVPO #### The performing lab is in the report. Glucose [Mass/Vol] 99 mg/dL Normal 70-100 [facility] Comment on above: Performed By: #### B FGI #### [facility] [address] [place], [place] #### FOCC #### [facility] [address] [place] [address] #### OVPO #### The performing lab is in the report. Urea nitrogen [Mass/Vol] 21 mg/dL High 9-20 [facility] Comment on above: Performed By: #### B FGI #### [address] [place], [place] #### FOCC #### [facility] [address] [place] [address] #### OVPO #### The performing lab is in the report. Anion gap [Moles/Vol] 11 mmol/L Normal 3-13 [facility] Comment on above: Performed By: #### B FGI #### [address] [address] [place], [place] #### FOCC #### [facility] [address] [place] [address] #### OVPO #### The performing lab is in the report. Bilirubin [Mass/Vol] 0.5 mg/dL Normal 0.2-1.3 [facility] Comment on above: Performed By: #### B FGI #### [address] [address] [place], [place] #### FOCC #### [facility] [address] [place] [address] #### OVPO #### The performing lab is in the report. CO2 [Moles/Vol] 19 mmol/L Low 22-30 [facility] Comment on above: Performed By: #### B FGI #### [facility] [address] [place], [place] #### FOCC #### [facility] [address] [place] [address] #### OVPO #### The performing lab is in the report. Creatinine [Mass/Vol] 2.24 mg/dL High 0.52-1.25 [facility] Comment on above: Performed By: #### B FGI #### [address] [place], [place] #### FOCC #### [facility] [address] [facility] [place] [place] [address] #### OVPO #### The performing lab is in the report. GFR/1.73 sq M.predicted among blacks MDRD (S/P/Bld) [Vol rate/Area] 26.8 mL/min/{1.73_m2} Abnormal >60 [facility] Comment on above: Performed By: #### B FGI #### [address] #### FOCC #### [facility] [address] [facility] [place] [place] [address] #### OVPO #### The performing lab is in the report. GFR/1.73 sq M.predicted among non-blacks MDRD (S/P/Bld) [Vol rate/Area] 23.2 mL/min/{1.73_m2} Abnormal >60 [facility] Comment on above: Result Comment: KDIG [...] secretion. Performed By: #### B FGI #### [address] #### FOCC #### [facility] [address] [place] [address] #### OVPO #### The performing lab is in the report. Protein [Mass/Vol] 7.4 g/dL Normal 6.3-8.2 [facility] Comment on above: Performed By: #### B FGI #### [address] [place] #### FOCC #### [facility] [address] [place] [address] #### OVPO #### The performing lab is in the report. Potassium [Moles/Vol] 4.7 mmol/L Normal 3.5-5.1 [facility] Comment on above: Performed By: #### B FGI #### [address] [address] [place] #### FOCC #### [address] [place] [address] #### OVPO #### The performing lab is in the report. Sodium [Moles/Vol] 138 mmol/L Normal 135-145 [facility] Comment on above: Performed By: #### B FGI #### [address] [address] [place] #### FOCC #### [facility] [address] [facility] [place] [place] [address] #### OVPO #### The performing lab is in the report. Albumin [Mass/Vol] 4.4 g/dL Normal 3.5-5.0 [facility] Comment on above: Performed By: #### B FGI #### [address] [address] [place] #### FOCC #### [facility] [address] [facility] [place] [place] [address] #### OVPO #### The performing lab is in the report. Chloride [Moles/Vol] 109 mmol/L High 98-107 [facility] Comment on above: Performed By: #### B FGI #### [facility] [address] [place] [address] #### FOCC #### [facility] [address] [place] [address] #### OVPO #### The performing lab is in the report. Complete Urinalysison 2021 Bacteria LM.HPF (Urine sed) [#/Area] Negative Normal Negative [facility] Comment on above: Result Comment: . Performed By: #### C UA2 #### [facility] [address] [place] [address] RBC, Urine 0 - 2 Normal 0-2 [facility] Comment on above: Result Comment: . Performed By: #### C UA2 #### [facility] [address] [place] [address] Squamous Epithelial 3 - 5 Normal 3-5 [facility] Comment on above: Result Comment: . Performed By: #### C UA2 #### [facility] [address] [place] [address] VOLUME, URINE 12 ml Normal [facility] Comment on above: Result Comment: . Performed By: #### C UA2 #### [facility] [address] [place] [address] WBC, Urine 3 - 5 Normal 0-5 [facility] Comment on above: Result Comment: . Performed By: #### C UA2 #### [facility] [address] [place] [address] Appearance (U) Clear Normal Clear [facility] Comment on above: Result Comment: . Performed By: #### C UA2 #### [facility] [address] [place] [address] Bilirubin,Urine Negative Normal Negative [facility] Comment on above: Result Comment: . Performed By: #### C UA2 #### [facility] [address] [place] [address] Color (U) LIGHT YELLOW Normal Lt. Yellow [facility] Comment on above: Result Comment: . Performed By: #### C UA2 #### [facility] [address] [place] [address] Glucose Ql (U) Normal Normal Normal (<70) [facility] Comment on above: Result Comment: . Performed By: #### C UA2 #### [facility] [address] [place] [address] Ketone,Urine Negative Normal Negative [facility] Comment on above: Result Comment: . Performed By: #### C UA2 #### [facility] [address] [place] [address] Leukocytes,Urine Negative Normal Negative [facility] Comment on above: Result Comment: . Performed By: #### C UA2 #### [facility] [address] [place] [address] Nitrites,Urine Negative Normal Negative [facility] Comment on above: Result Comment: . Performed By: #### C UA2 #### [facility] [address] [place] [address] Occult Blood,Urine Negative Normal Negative [facility] Comment on above: Result Comment: . Performed By: #### C UA2 #### [facility] [address] [place] [address] pH,Urine 6.0 Normal 5.0-8.0 [facility] Comment on above: Result Comment: . Performed By: #### C UA2 #### [facility] [address] [place] [address] Protein (U) [Mass/Vol] 100 mg/dL Abnormal Negative [facility] Comment on above: Result Comment: . Performed By: #### C UA2 #### [facility] [address] [place] [address] Specific [place],Urine 1.007 Normal 1.005 - 1.030 [facility] Comment on above: Result Comment: . Performed By: #### C UA2 #### [facility] [address] [place] [address] Urobilinogen,Urine Normal Normal Normal (0-1) [facility] Comment on above: Result Comment: . Performed By: #### C UA2 #### [facility] [place] [address] Comprehensive Metabolic Pane niall 10-01-2021 Albumin [Mass/Vol] 4.4 g/dL 3.5 - 5.0 g/dL [employer] Work Phone: ALP (Bld) [Catalytic activity/Vol] 106 U/L 38 - 126 U/L [employer] Work Phone: ALT [Catalytic activity/Vol] 9 U/L 0 - 34 U/L [employer] Work Phone: Comment on above: The ALT test is perf ormed by an updated assay method. Please note that the reference intervals have been changed and are now sex specific. Anion gap [Moles/Vol] 11 mmol/L 3 - 13 mmol/L [employer] Work Phone: AST [Catalytic activity/Vol] 14 U/L Low 15 - 46 U/L [employer] Work Phone: Bilirubin [Mass/Vol] 0.5 mg/dL 0.2 - 1 .3 mg/dL [employer] Work Phone: Calcium [Mass/Vol] 8.9 mg/dL 8.4 - 10. 4 mg/dL [employer] Work Phone: Chloride [Moles/Vol] 109 mmol/L High 98 - 10 7 mmol/L [employer] Work Phone: CO2 [Moles/Vol] 19 mmol/L Low 22 - 30 mmol/L [employer] Work Phone: Creatinine [Mass/Vol] 2.24 mg/dL High 0.52 - 1.25 mg/dL [employer] Work Phone: EGFR IF NonAfrican [place]er 23.2 mL/min Abnormal >60 [employer] Work Phone: Comment on above: KDIGO guidelines [...] fraction] 7.4 g/dL 6.3 - 8.2 g/dL [facility] Work Phone: GFR/1.73 sq M.predicted among blacks MDRD (S/P/Bld) [Vol rate/Area] 26.8 mL/min/{1.73_m2} Abnormal >60 [facility] Work Phone: Glucose [Mass/Vol] 99 mg/dL 70 - 100 mg/dL [facility] Work Phone: Interpretation and review of laboratory results Abnormal [facility] Work Phone: Potassium [Moles/Vol] 4.7 mmol/L 3.5 - 5.1 mmol/L [facility] Work Phone: Sodium [Moles/Vol] 138 mmol/L 135 - 145 mmol/L [facility] Work Phone: Urea nitrogen (BldV) [Mass/Vol] 21 mg/dL High 9 - 20 mg/dL [facility] Work Phone: EKG 12 Lead - Chest Painon 0 10-01-2021 [facility] [employer] Test Date: 2021-10-01 Pat Name: CATARINA BOYER Department: 2BED Room: 04 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1960 Requested By: ANGEL CH Order Number: [id number] Jyoti ANTHONY: Angel Ch Measurements Intervals [place] Rate: 69 P: 30 IA: 151 QRS: 16 QRSD: 84 T: 62 QT: 399 QTc: 427 Interpretive Statements Sinus rhythm Compared to ECG 07/21/2021 10:05:40 Right ventricular hypertrophy no longer present Electronically Signed On 10-01-2021 16:14:07 EDT by Angel hC [facility] Angel Ch MD - 10/01/2021 [facility] Test Date: 2021-10-01 Pat Name: CATARINA BOYER Department: 2BED Room: 04 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1960 Requested By: ANGEL CH Order Number: [id number] Reading MD: Angel Ch Measurements Intervals [place] Rate: 69 P: 30 IA: 151 QRS: 16 QRSD: 84 T: 62 QT: 399 QTc: 427 Interpretive Statements Sinus rhythm Compared to ECG 07/21/2021 10:05:40 Right ventricular hypertrophy no longer present Electronically Signed On 10-01-2021 16:14:07 EDT by Angel BRANTLEY Work Phone: [facility] Work Phone: Hemogram w/ Autodiffon 10-01 Abs Baso Cnt 0.0 10*3/uL Normal 0.0-0.2 [facility] Comment on above: Performed By: #### B FGI #### [address] [place] [address] #### FOCC #### [place] [address] #### OVPO #### The performing lab is in the report. Abs Neutrophile Cnt 5.5 10*3/uL Normal 1.8-7.0 [facility] Comment on above: Performed By: #### B FGI #### [address] [place] [address] #### FOCC #### [place] [address] #### OVPO #### The performing lab is in the report. Basophils/100 WBC (Bld) 0.4 % Normal 0.0-2.0 [facility] Comment on above: Performed By: #### B FGI #### [address] [place] [address] #### FOCC #### [facility] [address] [place] [address] #### OVPO #### The performing lab is in the report. Eosinophils (Bld) [#/Vol] 0.1 10*3/uL Normal 0.0-0.5 [facility] Comment on above: Performed By: #### B FGI #### [address] [address] [address] [place], [place] #### FOCC #### [facility] [address] [place] [address] #### OVPO #### The performing lab is in the report. Eosinophils/100 WBC (Bld) 1.2 % Normal 1.0-6.0 [facility] Comment on above: Performed By: #### B FGI #### [address] [place] [address] #### FOCC #### [place] [address] #### OVPO #### The performing lab is in the report. Erythrocyte distribution width (RBC) [Ratio] 13.0 % Normal 11.5-14.5 [facility] Comment on above: Performed By: #### B FGI #### [address] [place] [address] #### FOCC #### [place] [address] #### OVPO #### The performing lab is in the report. Granulocytes/100 WBC (Bld) 62.4 % Normal 40.0-80.0 [facility] Comment on above: Performed By: #### B FGI #### [address] [place], [place] #### FOCC #### [place] [address] #### OVPO #### The performing lab is in the report. Hematocrit (Bld) [Volume fraction] 32.6 % Low 35.0-47.0 [facility] Comment on above: Performed By: #### B FGI #### [address] [address] [address] [place], [place] #### FOCC #### [facility] [address] [place] [address] #### OVPO #### The performing lab is in the report. Hemoglobin (Bld) [Mass/Vol] 11.0 g/dL Low 11.7-16.0 [facility] Comment on above: Performed By: #### B FGI #### [address] [address] [address] [place], [place] #### FOCC #### [facility] [address] [place] [address] #### OVPO #### The performing lab is in the report. Lymphocytes (Bld) [#/Vol] 2.5 10*3/uL Normal 1.0-4.3 [facility] Comment on above: Performed By: #### B FGI #### [address] [address] [address] [place], [place] #### FOCC #### [facility] [address] [facility] [place] [address] #### OVPO #### The performing lab is in the report. Lymphocytes/100 WBC (Bld) 28.3 % Normal 20.0-40.0 [facility] Comment on above: Performed By: #### B FGI #### [address] [address] [address] [place], [place] #### FOCC #### [facility] [address] [place] [address] #### OVPO #### The performing lab is in the report. MCH (RBC) [Entitic mass] 28.4 pg Normal 26.0-34.0 [facility] Comment on above: Performed By: #### B FGI #### [address] [address] [address] [place], [place] #### FOCC #### [facility] [address] [place] [address] #### OVPO #### The performing lab is in the report. MCHC 33.7 % Normal 32.0-36.0 [facility] Comment on above: Performed By: #### B FGI #### [address] [address] [address] [place], [place] #### FOCC #### [facility] [address] [facility] [place] [place] [address] #### OVPO #### The performing lab is in the report. MCV (RBC) [Entitic vol] 84.0 fL Normal 79.0-98.0 [facility] Comment on above: Performed By: #### B FGI #### [address] [address] [place], [place] #### FOCC #### [place] [address] #### OVPO #### The performing lab is in the report. Monocytes (Bld) [#/Vol] 0.6 10*3/uL Normal 0.0-0.8 [facility] Comment on above: Performed By: #### B FGI #### [address] [address] [place] #### FOCC #### [facility] [address] [place] [address] #### OVPO #### The performing lab is in the report. Monocytes/100 WBC (Bld) 6.9 % Normal 2.0-10.0 [facility] Comment on above: Performed By: #### B FGI #### [address] [place], [place] #### FOCC #### [facility] [address] [place] [address] #### OVPO #### The performing lab is in the report. Platelet mean volume (Bld) [Entitic vol] 10.2 fL Normal 7.4-12.4 [facility] Comment on above: Result Comment: MPV is a calculated measurement using platelet volume ratio. Performed By: #### B FGI #### [address] [address] [address] [place], [place] #### FOCC #### [facility] [address] [place] [address] #### OVPO #### The performing lab is in the report. Platelets (Bld) [#/Vol] 342 10*3/uL Normal 140-440 [facility] Comment on above: Performed By: #### B FGI #### [address] [address] [address] [place], [place] #### FOCC #### [facility] [address] [place] [address] #### OVPO #### The performing lab is in the report. RBC (Bld) [#/Vol] 3.88 10*6/uL Normal 3.80-5.20 [facility] Comment on above: Performed By: #### B FGI #### [address] [place], [place] #### FOCC #### [address] [place] [address] #### OVPO #### The performing lab is in the report. WBC (Bld) [#/Vol] 8.9 10*3/uL Normal 3.6-10.7 [facility] Comment on above: Performed By: #### B FGI #### [address] [address] [place] #### FOCC #### [facility] [address] [place] [address] #### OVPO #### The performing lab is in the report. Lipaseon 10-01-2021 Lipase [Catalytic activity/Vol] 193 U/L Normal 23-300 [facility] Comment on above: Performed By: #### B FGI #### [address] [place] [address] #### FOCC #### [facility] [address] [place] [address] #### OVPO #### The performing lab is in the report. LipaseOrdered By: Woo Shine tt on 10-01-2021 Lipase [Catalytic activity/Vol] 193 U/L 23 - 300 U/L [employer] Work Phone: No Panel Informationon 10-01 [facility], [address] , [address] LAB No Panel InformationOrdered By: Woo Ch on 10-01-2021 [employer] Work Phone: Troponin Ion 10-01-2021 Troponin I.cardiac [Mass/Vol] ng/mL Normal 0.000-0.034 [facility] Comment on above: Result Comment: . Performed By: #### B FGI #### [facility] [address] [place] [address] #### FOCC #### [facility] [address] [facility] [place] [place] [address] #### OVPO #### The performing lab is in the report. Troponin x1on 10-01-2021 Troponin I.cardiac [Mass/Vol] ng/mL 0.000 - 0.034 ng/mL [employer] Work Phone: Comment on above: . Test Performed by [employer], [address] [place] [address]. [address] LAB [employer] Work Phone: US ABDOMEN LIMITED Specify o rgan? GALLBLADDERon 10-01-2021 Patient Name: CATARINA BOYER Ultrasound ACCESSION EXAM DATE/TIME PROCEDURE ORDERING PROVIDER [id number] 10/01/2021 17:40 EDT US Abdomen Limited MD DIMA, ANGEL Harris CPT code 17626 Reason For Exam (US Abdomen Limited) RUQ [...] WILLIAM Transcribed Date and Time: 10/01/2021 6:32 [facility] RAD Ashok Kelly MD - 10/01/2021 [id number]ound ACCESSION EXAM DATE/TIME PROCEDURE ORDERING PROVIDER [id number] 10/01/2021 17:40 EDT US Abdomen Limited MD CH DAVID L CPT code 47030 Reason For Exam (US Abdomen Limited) RUQ [...] WILLIAM Transcribed Date and Time: 10/01/2021 6:32 [facility] Work Phone: Radiology Study observation (narrative) [facility] Work Phone: US ABDOMEN LIMITED Specify o rgan? GALLBLADDEROrdered By: Ashok Kelly on 10-01-2021 [facility] Work Phone: US Abdomen Limitedon 022 US Abdomen Limited Patient Name: CATARINA BOYER Ultrasound ACCESSION EXAM DATE/TIME PROCEDURE ORDERING PROVIDER [id number] 10/01/2021 17:40 EDT US Abdomen Limited MD DIMA, ANGEL Harris CPT code 74203 Reason For Exam (US Abdomen Limited) RUQ [...] and Time: 10/01/2021 6:32 Normal [facility] Urinalysison 10-01-2021 Appearance (U) Clear Clear NA [facility] Work Phone: Comment on above: . Bacteria, UA Negative Negative /[HPF] [facility] Work Phone: Comment on above: . Bilirubin Urine Negative Negative mg/dL [facility] Work Phone: Comment on above: . Color (U) LIGHT YELLOW Lt. Yellow NA [facility] Work Phone: Comment on above: . Glucose, Ur Normal Normal (<70) mg/dL [facility] Work Phone: Comment on above: . Interpretation and review of laboratory results Abnormal [facility] Work Phone: Ketones Ql (U) Negative Negative mg/dL [facility] Work Phone: Comment on above: . LEUKOCYTES, UA Negative Negative [place]/uL [facility] Work Phone: Comment on above: . Nitrite, Urine Negative Negative NA [facility] Work Phone: Comment on above: . Occult Blood,Urine Negative Negative mg/dL [facility] Work Phone: Comment on above: . pH (U) 6.0 [pH] [facility] Work Phone: Comment on above: . Protein (U) [Mass/Vol] 100 mg/dL Abnormal Negative [facility] Work Phone: Comment on above: . RBC, UA 0-2 0 - 2 /[HPF] [facility] Work Phone: Comment on above: . Specific [place], Urine 1.007 S [facility] Work Phone: Comment on above: . Squam Epithel, UA 3-5 3 - 5 /[HPF] [facility] Work Phone: Comment on above: . Urobilinogen, Urine Normal Normal ( 0-1) mg/dL [facility] Work Phone: Comment on above: . Volume 12 ml [facility] Work Phone: Comment on above: . WBC, UA 3-5 0 - 5 /[HPF] [facility] Work Phone: Comment on above: . Test Performed by [facility], [address] , [place], [place] [id number] [place] [address] LAB [facility] Work Phone: CBC with Auto [...] 10*6/uL Low 3.80 - 5.2 0 10*6/uL [facility] WBC (Bld) [#/Vol] 7.5 10*3/uL 3.6 - 10.7 10*3/uL [facility] Test Performed by [facility], [address] [place] [address] [facility] Comp Panel with Mg Reflexon 07-21-2021 ALP [Catalytic activity/Vol] 101 U/L Normal 38-126 [facility] Comment on above: Performed By: #### M G3, TSH5, CMP3M, HEMDF #### [facility] [address] [place] [id number] ALT [Catalytic activity/Vol] 9 U/L Normal 0-34 [facility] Comment on above: Result Comment: The ALT test is performed by an updated assay method. Please note that the reference intervals have been changed and are now sex specific. Performed By: #### M G3, TSH5, CMP3M, HEMDF #### [facility] [address] [place] [id number] Calcium [Mass/Vol] 9.5 mg/dL Normal 8.4-10.4 [facility] Comment on above: Performed By: #### M G3, TSH5, CMP3M, HEMDF #### [facility] [address] [place] [id number] Glucose [Mass/Vol] 94 mg/dL Normal 70-100 [facility] Comment on above: Performed By: #### M G3, TSH5, CMP3M, HEMDF #### [facility] [address] [place] [address] Anion gap [Moles/Vol] 7 mmol/L Normal 3-13 [facility] Comment on above: Performed By: #### M G3, TSH5, CMP3M, HEMDF #### [facility] [address] [place] [id number] AST [Catalytic activity/Vol] 16 U/L Normal 15-46 [facility] Comment on above: Performed By: #### M G3, TSH5, CMP3M, HEMDF #### [facility] [address] [place] [address] Bilirubin [Mass/Vol] 0.4 mg/dL Normal 0.2-1.3 [facility] Comment on above: Performed By: #### M G3, TSH5, CMP3M, HEMDF #### [facility] [address] [place] [address] CO2 [Moles/Vol] 19 mmol/L Low 22-30 [facility] Comment on above: Performed By: #### M G3, TSH5, CMP3M, HEMDF #### [facility] [address] [place] [address] Creatinine [Mass/Vol] 2.27 mg/dL High 0.52-1.25 [facility] Comment on above: Performed By: #### M G3, TSH5, CMP3M, HEMDF #### [facility] [address] [place] [address] GFR/1.73 sq M.predicted among blacks MDRD (S/P/Bld) [Vol rate/Area] 26.4 mL/min/{1.73_m2} Abnormal >60 [facility] Comment on above: Performed By: #### M G3, TSH5, CMP3M, HEMDF #### [facility] [address] [place] [address] GFR/1.73 sq M.predicted among non-blacks MDRD (S/P/Bld) [Vol rate/Area] 22.8 mL/min/{1.73_m2} Abnormal >60 [facility] Comment on above: Result Comment: KDIG [...] #### M G3, TSH5, CMP3M, HEMDF #### [facility] [address] [place] [address] Protein [Mass/Vol] 6.7 g/dL Normal 6.3-8.2 [facility] Comment on above: Performed By: #### M G3, TSH5, CMP3M, HEMDF #### [facility] [address] [place] [address] Urea nitrogen [Mass/Vol] 24 mg/dL High 9-20 [facility] Comment on above: Performed By: #### M G3, TSH5, CMP3M, HEMDF #### [facility] [address] [place] [address] Potassium [Moles/Vol] 5.5 mmol/L High 3.5-5.1 [facility] Comment on above: Performed By: #### M G3, TSH5, CMP3M, HEMDF #### [facility] [address] [place] [address] Sodium [Moles/Vol] 134 mmol/L Low 135-145 [facility] Comment on above: Performed By: #### M G3, TSH5, CMP3M, HEMDF #### [facility] [address] [place] [address] Albumin [Mass/Vol] 3.8 g/dL Normal 3.5-5.0 [facility] Comment on above: Performed By: #### M G3, TSH5, CMP3M, HEMDF #### [facility] [address] [place] [address] Chloride [Moles/Vol] 107 mmol/L Normal 98-107 [facility] Comment on above: Performed By: #### M G3, TSH5, CMP3M, HEMDF #### [facility] [address] [place] [address] Comprehensive Metabolic Pane l w/ Reflex to [...] - 1.25 mg/dL [facility] EGFR IF NonAfrican [place]er 22.8 mL/min Abnormal >60 [facility] Comment on [...] GENDER: F BP: 137 / 73 LOCATION: [facility] PATIENT Inpatient [facility] STATUS: *ORDERING PHYSICIAN: * Raoul *FELLOW: * Gian Jennings MD, MD *READING PHYSICIAN: * Barbara, *KITCHEN FOOD ASSEMBLER: * Kell Corrales MD RDCS,AE, PE, RVT [...] end-systolic volume, 2-p (more content not included)... [facility]ARD[facility] Savanna Jimenez MD - 07/21/2021 TRANSTHORACIC ECHOCARDIOGRAM PATIENT: Catarina Boyer STUDY DATE: 07/21/2021 [facility]#: [id number] : 1960 AGE: 61 HT/WT: 160 cm (63 102.1 kg in) (224.5 lb) GENDER: F BP: 137 / 73 LOCATION: [facility] PATIENT Inpatient [facility] STATUS: *ORDERING PHYSICIAN: * Raoul *FELLOW: * Gian Jennings MD, MD *READING PHYSICIAN: * Barbara, *KITCHEN FOOD ASSEMBLER: * Kell Corrales MD RDCS,AE, PE, RVT [...] Value Reference Aortic (more content not included)... 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: : 1960 Requested By: ROSARIO DAVENPORT Order Number: [id number] Reading MD: Corey Catherine Measurements Intervals [place] Rate: 68 P: 6 IA: 148 QRS: 54 QRSD: 100 T: 67 QT: 380 QTc: 405 Interpretive Statements SINUS RHYTHM Electronically Signed On 07-21-2021 12:58:36 EDT by Corey Catherine [facility] Corey Catherine M D - 07/21/2021 [employer] Test Date: 2021-07-20 [facility] Department: 4S Room: 466 Gender: F Tractor Mechanic Apprentice: ZL : 1960 Requested By: ROSARIO DAVENPORT Order Number: [id number] Reading : Corey Catherine Measurements Intervals [place] Rate: 68 P: 6 IA: 148 QRS: 54 QRSD: 100 T: 67 QT: 380 QTc: 405 Interpretive Statements SINUS RHYTHM Electronically Signed On 07-21-2021 12:58:36 EDT by Corey Catherine [employer] Work Phone: [employer] Test Date: 2021-07-19 Pat Name: CATARINA DUMONT Department: 01 Room: 466 Gender: F Tractor Mechanic Apprentice: [id number] : 1960 Requested By: TOM NUNES Order Number: [id number] Reading MD: Stoney Maurice Measurements Intervals [place] Rate: 74 P: 10 IA: 136 QRS: 29 QRSD: 88 T: 54 QT: 360 QTc: 400 Interpretive Statements SINUS RHYTHM RSR' IN V1 OR V2, RIGHT VCD OR RVH Compared to ECG 11/18/2017 12:25:53 Right ventricular hypertrophy now present RSR' in V1 or V2 now present Electronically Signed On 07-21-2021 0:47:20 EDT by Stoney Maurice [facility] Stoney Maurice MD - 07/21/2021 [facility] Test Date: 2021-07-19 Pat Name: CATARINA BOYER Department: 01 Room: [facility] Gender: F Tractor Mechanic Apprentice: [id number] : 1960 Requested By: TOM NUNES Order Number: [id number] Reading MD: Stoney Maurice Measurements Intervals [place] Rate: 74 P: 10 IA: 136 QRS: 29 QRSD: 88 T: 54 QT: 360 QTc: 400 Interpretive Statements SINUS RHYTHM RSR' IN V1 OR V2, RIGHT VCD OR RVH Compared to ECG 11/18/2017 12:25:53 Right ventricular hypertrophy now present RSR' in V1 or V2 now present Electronically Signed On 07-21-2021 0:47:20 EDT by Stoney Maurice [facility] Work Phone: EKG 12 LeadOrdered By: Corey Catherine on 07-21-2021 [facility] Work Phone: EKG 12 LeadOrdered By: Stoney Maurice on 07-21-2021 [facility] Work Phone: Echo Complete w/wo Contrasto n 07-21-2021 Echo Complete w/wo Contrast Patient Name: CATARINA BOYER Ultrasound ACCESSION EXAM DATE/TIME PROCEDURE ORDERING PROVIDER [id number] 07/21/2021 09:35 EDT Echo Complete w/wo JOHN, RAOUL Contrast Reason For Exam (Echo Complete w/wo Contrast) cp Report TRANSTHORACIC ECHOCARDIOGRAM PATIENT: Catarina Boyer STUDY DATE: 07/21/2021 : 1960 AGE: 61 HT/WT: 160 cm (63 102.1 kg in) (224.5 lb) GENDER: F BP: 137 / 73 LOCATION: [facility] PATIENT [facility] STATUS: *ORDERING PHYSICIAN: * Raoul *FELLOW: * Gian Jennings MD, MD *READING PHYSICIAN: * Barbara, *KITCHEN FOOD ASSEMBLER: * Kell Corrales MD RDCS,AE, PE, RVT [...] Report LVOT (more content not included)... Normal [facility] Hemogram w/ Autodiffon 07-21 Abs Baso Cnt 0.1 10*3/uL Normal 0.0-0.2 [facility] Comment on above: Performed By: #### M G3, TSH5, CMP3M, HEMDF #### [facility] [address] [place] [address] Abs Neutrophile Cnt 4.3 10*3/uL Normal 1.8-7.0 [facility] Comment on above: Performed By: #### M G3, TSH5, CMP3M, HEMDF #### [facility] [address] [place] [address] Basophils/100 WBC (Bld) 1.0 % Normal 0.0-2.0 S [facility] Comment on above: Performed By: #### M G3, TSH5, CMP3M, HEMDF #### [facility] [address] [place] [address] Eosinophils (Bld) [#/Vol] 0.1 10*3/uL Normal 0.0-0.5 [facility] Comment on above: Performed By: #### M G3, TSH5, CMP3M, HEMDF #### [facility] [address] [place] [address] Eosinophils/100 WBC (Bld) 1.3 % Normal 1.0-6.0 [facility] Comment on above: Performed By: #### M G3, TSH5, CMP3M, HEMDF #### [facility] [address] [place] [address] Erythrocyte distribution width (RBC) [Ratio] 14.1 % Normal 11.5-14.5 [facility] Comment on above: Performed By: #### M G3, TSH5, CMP3M, HEMDF #### [facility] [address] [place] [address] Granulocytes/100 WBC (Bld) 58.4 % Normal 40.0-80.0 [facility] Comment on above: Performed By: #### M G3, TSH5, CMP3M, HEMDF #### [facility] [address] [place] [address] Hematocrit (Bld) [Volume fraction] 30.2 % Low 35.0-47.0 [facility] Comment on above: Performed By: #### M G3, TSH5, CMP3M, HEMDF #### [facility] [address] [place] [id number] Hemoglobin (Bld) [Mass/Vol] 10.0 g/dL Low 11.7-16.0 [facility] Comment on above: Performed By: #### M G3, TSH5, CMP3M, HEMDF #### [facility] [address] [place] [address] Lymphocytes (Bld) [#/Vol] 2.4 10*3/uL Normal 1.0-4.3 [facility] Comment on above: Performed By: #### M G3, TSH5, CMP3M, HEMDF #### [facility] [address] [place] [address] Lymphocytes/100 WBC (Bld) 32.2 % Normal 20.0-40.0 [facility] Comment on above: Performed By: #### M G3, TSH5, CMP3M, HEMDF #### [facility] [address] [place] [address] MCH (RBC) [Entitic mass] 28.6 pg Normal 26.0-34.0 [facility] Comment on above: Performed By: #### M G3, TSH5, CMP3M, HEMDF #### [facility] [address] [place] [address] MCHC 33.0 % Normal 32.0-36.0 [facility] Comment on above: Performed By: #### M G3, TSH5, CMP3M, HEMDF #### [facility] [address] [place] [address] MCV (RBC) [Entitic vol] 86.7 fL Normal 79.0-98.0 [facility] Comment on above: Performed By: #### M G3, TSH5, CMP3M, HEMDF #### [facility] [address] [place] [address] Monocytes (Bld) [#/Vol] 0.5 10*3/uL Normal 0.0-0.8 [facility] Comment on above: Performed By: #### M G3, TSH5, CMP3M, HEMDF #### [facility] [address] [place] [address] Monocytes/100 WBC (Bld) 7.1 % Normal 2.0-10.0 [facility] Comment on above: Performed By: #### M G3, TSH5, CMP3M, HEMDF #### [facility] [address] [place] [address] Platelet mean volume (Bld) [Entitic vol] 8.5 fL Normal 7.4-10.4 [facility] Comment on above: Performed By: #### M G3, TSH5, CMP3M, HEMDF #### [facility] [address] [place] [address] Platelets (Bld) [#/Vol] 286 10*3/uL Normal 140-440 [facility] Comment on above: Performed By: #### M G3, TSH5, CMP3M, HEMDF #### [facility] [address] [place] [id number] RBC (Bld) [#/Vol] 3.49 10*6/uL Low 3.80-5.20 [facility] Comment on above: Performed By: #### M G3, TSH5, CMP3M, HEMDF #### [facility] [address] [place] [address] WBC (Bld) [#/Vol] 7.5 10*3/uL Normal 3.6-10.7 [facility] Comment on above: Performed By: #### Gideon G3, TSH5, CMP3M, HEMDF #### [facility] [address] [place] [address] Magnesiumon 07-21-2021 Magnesium [Mass/Vol] 1.4 mg/dL Low 1.6-2.3 [facility] Comment on above: Performed By: #### M G3, TSH5, CMP3M, HEMDF #### [facility] [address] [place] [address] Magnesium [Mass/Vol] 1.4 mg/dL Low 1.6 - 2 .3 mg/dL [facility] No Panel Informationon 07-21 Interpretation and review of laboratory results Abnormal [facility] Test Performed by [facility], [facility] [address] [place], [place] [address] [facility] TSHon 07-21-2021 TSH Qn 2.655 u[IU]/mL 0.465 - 4.680 u[IU]/mL [facility] Test Performed by [facility], [address] [place] [address] [facility] Thyroid Stim. Hormoneon 06-24 Thyroid Stim. Hormone 2.655 u[IU]/mL Normal 0.465-4.68 0 [facility] Comment on above: Performed By: #### M G3, TSH5, CMP3M, HEMDF #### [facility] [address] [place] [address] Basic Metabolic Panelon 06-24 Calcium [Mass/Vol] 9.0 mg/dL Normal 8.4-10.4 [facility] Comment on above: Performed By: #### B MP3, DDI2, TROPN, MG3, HEMDF #### [facility] [address] [place] [address] Glucose [Mass/Vol] 97 mg/dL Normal 70-100 [facility] Comment on above: Performed By: #### B MP3, DDI2, TROPN, MG3, HEMDF #### [facility] [address] [place] [address] Anion gap [Moles/Vol] 5 mmol/L Normal 3-13 [facility] Comment on above: Performed By: #### B MP3, DDI2, TROPN, MG3, HEMDF #### [facility] [address] [place] [address] CO2 [Moles/Vol] 21 mmol/L Low 22-30 [facility] Comment on above: Performed By: #### B MP3, DDI2, TROPN, MG3, HEMDF #### [facility] [address] [place] [address] Creatinine [Mass/Vol] 2.10 mg/dL High 0.52-1.25 [facility] Comment on above: Performed By: #### B MP3, DDI2, TROPN, MG3, HEMDF #### [facility] [address] [place] [address] GFR/1.73 sq M.predicted among blacks MDRD (S/P/Bld) [Vol rate/Area] 29.1 mL/min/{1.73_m2} Abnormal >60 [facility] Comment on above: Performed By: #### B MP3, DDI2, TROPN, MG3, HEMDF #### [facility]pathy [facility] [address] [place] [id number] GFR/1.73 sq M.predicted among non-blacks MDRD (S/P/Bld) [Vol rate/Area] 25.1 mL/min/{1.73_m2} Abnormal >60 [facility] Comment on above: Result Comment: KDIG [...] B MP3, DDI2, TROPN, MG3, HEMDF #### [facility] [address] [place] [id number] Urea nitrogen [Mass/Vol] 24 mg/dL High 9-20 [facility] Comment on above: Performed By: #### B MP3, DDI2, TROPN, MG3, HEMDF #### [facility] [address] [place] [address] Chloride [Moles/Vol] 110 mmol/L High 98-107 [facility] Comment on above: Performed By: #### B MP3, DDI2, TROPN, MG3, HEMDF #### [facility] [address] [place] [address] Potassium [Moles/Vol] 6.0 mmol/L High 3.5-5.1 [facility] Comment on above: Performed By: #### B MP3, DDI2, TROPN, MG3, HEMDF #### [facility] [address] [place] [address] Sodium [Moles/Vol] 136 mmol/L Normal 135-145 [facility] Comment on above: Performed By: #### B MP3, DDI2, TROPN, MG3, HEMDF #### [facility] [address] [place] [address] Anion gap [Moles/Vol] 5 mmol/L 3 - 13 mmol/L [facility] Calcium [Mass/Vol] 9.0 mg/dL 8.4 - 10. 4 mg/dL [facility] Chloride [Moles/Vol] 110 mmol/L High 98 - 10 7 mmol/L [facility] CO2 [Moles/Vol] 21 mmol/L Low 22 - 30 mmol/L [facility] Creatinine [Mass/Vol] 2.1 mg/dL High 0.52 - 1.25 mg/dL [facility] EGFR IF NonAfrican [place]er 25.1 mL/min Abnormal >60 [facility] Comment on [...] - 10.7 10*3/uL [facility] Test Performed by [facility], [address] [place], [place] [address] [facility] Absolute Baso # 0.0 [...] - 10.7 10*3/uL [facility] Test Performed by [facility], [address] [place] [id number] [place] [address] LAB [facility] CR Chest PA/LATon 07-20-2021 CR Chest PA/LAT Patient Name: CATARINA BOYER Diagnostic Radiology ACCESSION EXAM DATE/TIME PROCEDURE ORDERING PROVIDER [id number] 07/20/2021 01:03 EDT CR Chest PA and LAT [id number] -TOM NUNES CPT code 49672 Reason For Exam (CR Chest PA and LAT) palpitations Addendum ADDENDUM: For billing purposes only-this is a PA and lateral chest Report Dictated on Final Addendum Addendum Dictating Physician: MD KELLY WILLIAM Signed Date and Time: 08/11/2021 6:04 pm Signed by: MD KLELY WILLIAM Transcribed Date and Time: 08/11/2021 6:05 [...] 18:04 EDT by MD KELLY WILLIAM Normal [facility] Comp Panel with Mg Reflexon 07-20-2021 ALT [Catalytic activity/Vol] 10 U/L Normal 0-34 [facility] Comment on above: Result Comment: The ALT test is performed by an updated assay method. Please note that the reference intervals have been changed and are now sex specific. Performed By: #### B FGI #### [place] [address] [address] [place], [place] #### FOCC #### [facility] [address] [facility] [place] [address] #### OVPO #### The performing lab is in the report. Calcium [Mass/Vol] 9.2 mg/dL Normal 8.4-10.4 [facility] Comment on above: Performed By: #### B FGI #### [facility] [address] [place], [place] #### FOCC #### [facility] [address] [facility] [place] [place] [address] #### OVPO #### The performing lab is in the report. Glucose [Mass/Vol] 98 mg/dL Normal 70-100 [facility] Comment on above: Performed By: #### B FGI #### [facility] [address] [place], [place] #### FOCC #### [facility] [address] [facility] [place] [place] [address] #### OVPO #### The performing lab is in the report. ALP [Catalytic activity/Vol] 101 U/L Normal 38-126 [facility] Comment on above: Performed By: #### B FGI #### [facility] [address] [place], [place] #### FOCC #### [facility] [address] [place] [address] #### OVPO #### The performing lab is in the report. Anion gap [Moles/Vol] 6 mmol/L Normal 3-13 [facility] Comment on above: Performed By: #### B FGI #### [facility] [address] [place], [place] #### FOCC #### [facility] [address] [place] [address] #### OVPO #### The performing lab is in the report. AST [Catalytic activity/Vol] 16 U/L Normal 15-46 [facility] Comment on above: Performed By: #### B FGI #### [place] [address] [address] [place], [place] #### FOCC #### [facility] [address] [place] [address] #### OVPO #### The performing lab is in the report. Bilirubin [Mass/Vol] 0.4 mg/dL Normal 0.2-1.3 [facility] Comment on above: Performed By: #### B FGI #### [place] [address] [address] [place], [place] #### FOCC #### [facility] [address] [place] [address] #### OVPO #### The performing lab is in the report. CO2 [Moles/Vol] 19 mmol/L Low 22-30 [facility] Comment on above: Performed By: #### B FGI #### [facility] [address] [place], [place] #### FOCC #### [facility] [address] [place] [address] #### OVPO #### The performing lab is in the report. Creatinine [Mass/Vol] 2.11 mg/dL High 0.52-1.25 [facility] Comment on above: Performed By: #### B FGI #### [place] [address] [address] [place], [place] #### FOCC #### [facility] [address] [facility] [place] [place] [address] #### OVPO #### The performing lab is in the report. GFR/1.73 sq M.predicted among blacks MDRD (S/P/Bld) [Vol rate/Area] 28.9 mL/min/{1.73_m2} Abnormal >60 [facility] Comment on above: Performed By: #### B FGI #### [address] #### FOCC #### [facility] [address] [facility] [place] [place] [address] #### OVPO #### The performing lab is in the report. GFR/1.73 sq M.predicted among non-blacks MDRD (S/P/Bld) [Vol rate/Area] 24.9 mL/min/{1.73_m2} Abnormal >60 [facility] Comment on above: Result Comment: KDIG O [...] secretion. Performed By: #### B FGI #### [facility] [address] #### FOCC #### [facility] [address] [facility] [place] [place] [address] #### OVPO #### The performing lab is in the report. Protein [Mass/Vol] 6.6 g/dL Normal 6.3-8.2 [facility] Comment on above: Performed By: #### B FGI #### [place] [address] [address] [place], [place] #### FOCC #### [facility] [address] [facility] [place] [place] [address] #### OVPO #### The performing lab is in the report. Urea nitrogen [Mass/Vol] 22 mg/dL High 9-20 [facility] Comment on above: Performed By: #### B FGI #### [place] [address] [address] [place], [place] #### FOCC #### [facility] [address] [place] [address] #### OVPO #### The performing lab is in the report. Potassium [Moles/Vol] 5.2 mmol/L High 3.5-5.1 [facility] Comment on above: Performed By: #### B FGI #### [place] [address] [address] [place], [place] #### FOCC #### [facility] [address] [facility] [place] [place] [address] #### OVPO #### The performing lab is in the report. Albumin [Mass/Vol] 3.9 g/dL Normal 3.5-5.0 [facility] Comment on above: Performed By: #### B FGI #### [place] [address] [address] [place], [place] #### FOCC #### [facility] [address] [place] [address] #### OVPO #### The performing lab is in the report. Chloride [Moles/Vol] 109 mmol/L High 98-107 [facility] Comment on above: Performed By: #### B FGI #### [address] [place], [place] #### FOCC #### [facility] [address] [place] [address] #### OVPO #### The performing lab is in the report. Sodium [Moles/Vol] 134 mmol/L Low 135-145 [facility] Comment on above: Performed By: #### B FGI #### [facility] [address] [place] [address] #### FOCC #### [facility] [address] [place] [address] #### OVPO #### The performing lab is [...] - 1.25 mg/dL [facility] EGFR IF NonAfrican [place] 24.9 mL/min Abnormal >60 [facility] Comment on [...] fraction] 6.6 g/dL 6.3 - 8.2 g/dL [facility] GFR/1.73 sq M.predicted among blacks MDRD (S/P/Bld) [Vol rate/Area] 28.9 mL/min/{1.73_m2} Abnormal >60 [facility] Glucose [Mass/Vol] 98 mg/dL 70 - 100 mg/dL [facility] Interpretation and review of laboratory results Abnormal [facility] Potassium [Moles/Vol] 5.2 mmol/L High 3.5 - 5.1 mmol/L [facility] Sodium [Moles/Vol] 134 mmol/L Low 135 - 145 mmol/L [facility] Urea nitrogen (BldV) [Mass/Vol] 22 mg/dL High 9 - 20 mg/dL [facility] D-Dimer, Innovanceon D-Dimer, Innovance 0.44 mg/L Normal <0.19-0.50 [facility] Comment on above: Result Comment: Inno scott D-Dimer values of <0.50 mg/L FEU can be used in combination with a pre-test probability model (e.g. Well's) to exclude pulmonary embolism (PE) disease, as well as an aid in the diagnosis of deep vein thrombosis (DVT). Performed By: #### B FGI #### [facility] [address] [place] [address] #### FOCC #### [facility] [address] [facility] [place] [place] [address] #### OVPO #### The performing lab is in the report. D-Dimer, Quantitativeon 06-24 D-Dimer, Quant 0.44 mg/L <0.19 - 0.50 [facility] Comment on above: Innovance D-Dimer va lues of <0.50 mg/L FEU can be used in combination with a pre-test probability model (e.g. Well's) to exclude pulmonary embolism (PE) disease, as well as an aid in the diagnosis of deep vein thrombosis (DVT). Test Performed by [facility], [address] [place], [place] [address] [facility] ED Provider Noteon 2 ED Provider Note [...] observed in the hospital tonight on a manager animation. Ordered Kayexalate. I spoke with Dr. Goodman [...] TOM NUNES MD (electronically signed) Emergency Medicine oTm Nunes MD 07/20/21 0123 Normal [facility] Hemogram w/ Autodiffon 07-20 Abs Baso Cnt 0.1 10*3/uL Normal 0.0-0.2 [facility] Comment on above: Performed By: #### B FGI #### [place] [address] [address] [place], [place] #### FOCC #### [facility] [address] [place] [address] #### OVPO #### The performing lab is in the report. Abs Neutrophile Cnt 4.4 10*3/uL Normal 1.8-7.0 [facility] Comment on above: Performed By: #### B FGI #### [address] #### FOCC #### [place] [address] #### OVPO #### The performing lab is in the report. Basophils/100 WBC (Bld) 1.0 % Normal 0.0-2.0 [facility] Comment on above: Performed By: #### B FGI #### [address] [place] [address] [place], [place] #### FOCC #### [facility] [address] [place] [address] #### OVPO #### The performing lab is in the report. Eosinophils (Bld) [#/Vol] 0.1 10*3/uL Normal 0.0-0.5 [facility] Comment on above: Performed By: #### B FGI #### [place] [address] [place], [place] #### FOCC #### [facility] [address] [place] [address] #### OVPO #### The performing lab is in the report. Eosinophils/100 WBC (Bld) 1.5 % Normal 1.0-6.0 [facility] Comment on above: Performed By: #### B FGI #### [place] [address] [address] [place], [place] #### FOCC #### [facility] [address] [facility] [place] [place] [address] #### OVPO #### The performing lab is in the report. Erythrocyte distribution width (RBC) [Ratio] 14.1 % Normal 11.5-14.5 [facility] Comment on above: Performed By: #### B FGI #### [address] [place] [address] [address] [place], [place] #### FOCC #### [address] [place] [address] #### OVPO #### The performing lab is in the report. Granulocytes/100 WBC (Bld) 59.5 % Normal 40.0-80.0 [facility] Comment on above: Performed By: #### B FGI #### [address] [place] [address] [place], [place] #### FOCC #### [place] [address] #### OVPO #### The performing lab is in the report. Hematocrit (Bld) [Volume fraction] 29.6 % Low 35.0-47.0 [facility] Comment on above: Performed By: #### B FGI #### [place] [address] [place], [place] #### FOCC #### [facility] [address] [facility] [place] [place] [address] #### OVPO #### The performing lab is in the report. Hemoglobin (Bld) [Mass/Vol] 9.9 g/dL Low 11.7-16.0 [facility] Comment on above: Performed By: #### B FGI #### [address] [place], [place] #### FOCC #### [facility] [address] [place] [address] #### OVPO #### The performing lab is in the report. Lymphocytes (Bld) [#/Vol] 2.4 10*3/uL Normal 1.0-4.3 [facility] Comment on above: Performed By: #### B FGI #### [place] [address] [address] [place], [place] #### FOCC #### [facility] [address] [place] [address] #### OVPO #### The performing lab is in the report. Lymphocytes/100 WBC (Bld) 31.5 % Normal 20.0-40.0 [facility] Comment on above: Performed By: #### B FGI #### [place] [address] [address] [place], [place] #### FOCC #### [facility] [address] [place] [address] #### OVPO #### The performing lab is in the report. MCH (RBC) [Entitic mass] 28.7 pg Normal 26.0-34.0 [facility] Comment on above: Performed By: #### B FGI #### [place] [address] [address] [place], [place] #### FOCC #### [facility] [address] [place] [address] #### OVPO #### The performing lab is in the report. MCHC 33.4 % Normal 32.0-36.0 [facility] Comment on above: Performed By: #### B FGI #### [place] [address] [address] [place], [place] #### FOCC #### [facility] [address] [place] [address] #### OVPO #### The performing lab is in the report. MCV (RBC) [Entitic vol] 86.0 fL Normal 79.0-98.0 [facility] Comment on above: Performed By: #### B FGI #### [place] [address] [address] [place], [place] #### FOCC #### [address] [place] [address] #### OVPO #### The performing lab is in the report. Monocytes (Bld) [#/Vol] 0.5 10*3/uL Normal 0.0-0.8 [facility] Comment on above: Performed By: #### B FGI #### [place] [address] [place] #### FOCC #### [facility] [address] [place] [address] #### OVPO #### The performing lab is in the report. Monocytes/100 WBC (Bld) 6.5 % Normal 2.0-10.0 [facility] Comment on above: Performed By: #### B FGI #### [address] #### FOCC #### [place] [address] #### OVPO #### The performing lab is in the report. Platelet mean volume (Bld) [Entitic vol] 8.7 fL Normal 7.4-10.4 [facility] Comment on above: Performed By: #### B FGI #### [place] [address] [address] [place], [place] #### FOCC #### [place] [address] #### OVPO #### The performing lab is in the report. Platelets (Bld) [#/Vol] 293 10*3/uL Normal 140-440 [facility] Comment on above: Performed By: #### B FGI #### [place] [address] [place] #### FOCC #### [address] [place] [address] #### OVPO #### The performing lab is in the report. RBC (Bld) [#/Vol] 3.44 10*6/uL Low 3.80-5.20 [facility] Comment on above: Performed By: #### B FGI #### [facility] [address] [place] [address] #### FOCC #### [facility] [address] [facility] [place] [place] [address] #### OVPO #### The performing lab is in the report. WBC (Bld) [#/Vol] 7.5 10*3/uL Normal 3.6-10.7 [facility] Comment on above: Performed By: #### B FGI #### [facility] [address] [place] [id number] #### FOCC #### [facility] [address] [facility] [place] [place] [address] #### OVPO #### The performing lab is in the report. Abs Baso Cnt 0.0 10*3/uL Normal 0.0-0.2 [facility] Comment on above: Performed By: #### B MP3, DDI2, TROPN, MG3, HEMDF #### [facility] [address] [place] [address] Abs Neutrophile Cnt 5.1 10*3/uL Normal 1.8-7.0 [facility] [facility] Comment on above: Performed By: #### B MP3, DDI2, TROPN, MG3, HEMDF #### [facility] [address] [place] [address] Basophils/100 WBC (Bld) 0.4 % Normal 0.0-2.0 S [facility] Comment on above: Performed By: #### B MP3, DDI2, TROPN, MG3, HEMDF #### [facility] [address] [place] [address] Eosinophils (Bld) [#/Vol] 0.1 10*3/uL Normal 0.0-0.5 [facility] Comment on above: Performed By: #### B MP3, DDI2, TROPN, MG3, HEMDF #### [facility] [address] [place] [address] Eosinophils/100 WBC (Bld) 1.1 % Normal 1.0-6.0 [facility] Comment on above: Performed By: #### B MP3, DDI2, TROPN, MG3, HEMDF #### [facility] [address] [place] [address] Erythrocyte distribution width (RBC) [Ratio] 14.0 % Normal 11.5-14.5 [facility] Comment on above: Performed By: #### B MP3, DDI2, TROPN, MG3, HEMDF #### [facility] [address] [place] [address] Granulocytes/100 WBC (Bld) 65.0 % Normal 40.0-80.0 [facility] Comment on above: Performed By: #### B MP3, DDI2, TROPN, MG3, HEMDF #### [facility] [address] [place] [address] Hematocrit (Bld) [Volume fraction] 30.9 % Low 35.0-47.0 [facility] Comment on above: Performed By: #### B MP3, DDI2, TROPN, MG3, HEMDF #### [facility] [address] [place] [address] Hemoglobin (Bld) [Mass/Vol] 10.4 g/dL Low 11.7-16.0 [facility] Comment on above: Performed By: #### B MP3, DDI2, TROPN, MG3, HEMDF #### [facility] [address] [place] [address] Lymphocytes (Bld) [#/Vol] 2.1 10*3/uL Normal 1.0-4.3 [facility] Comment on above: Performed By: #### B MP3, DDI2, TROPN, MG3, HEMDF #### [facility] [address] [place] [address] Lymphocytes/100 WBC (Bld) 27.1 % Normal 20.0-40.0 [facility] Comment on above: Performed By: #### B MP3, DDI2, TROPN, MG3, HEMDF #### [facility] [address] [place] [address] MCH (RBC) [Entitic mass] 28.5 pg Normal 26.0-34.0 [facility] Comment on above: Performed By: #### B MP3, DDI2, TROPN, MG3, HEMDF #### [facility] [address] [place] [address] MCHC 33.7 % Normal 32.0-36.0 [facility] Comment on above: Performed By: #### B MP3, DDI2, TROPN, MG3, HEMDF #### [facility] [address] [place] [address] MCV (RBC) [Entitic vol] 84.6 fL Normal 79.0-98.0 S [facility] Comment on above: Performed By: #### B MP3, DDI2, TROPN, MG3, HEMDF #### [facility] [address] [place] [address] Monocytes (Bld) [#/Vol] 0.5 10*3/uL Normal 0.0-0.8 [facility] Comment on above: Performed By: #### B MP3, DDI2, TROPN, MG3, HEMDF #### [facility] [address] [place] [address] Monocytes/100 WBC (Bld) 6.4 % Normal 2.0-10.0 S [facility] Comment on above: Performed By: #### B MP3, DDI2, TROPN, MG3, HEMDF #### [facility] [address] [place] [address] Platelet mean volume (Bld) [Entitic vol] 8.7 fL Normal 7.4-10.4 [facility] Comment on above: Performed By: #### B MP3, DDI2, TROPN, MG3, HEMDF #### [facility] [address] [place] [address] Platelets (Bld) [#/Vol] 313 10*3/uL Normal 140-440 [facility] Comment on above: Performed By: #### B MP3, DDI2, TROPN, MG3, HEMDF #### [facility] [address] [place] [address] RBC (Bld) [#/Vol] 3.65 10*6/uL Low 3.80-5.20 [facility] Comment on above: Performed By: #### B MP3, DDI2, TROPN, MG3, HEMDF #### [facility] [address] [place] [address] WBC (Bld) [#/Vol] 7.8 10*3/uL Normal 3.6-10.7 [facility] Comment on above: Performed By: #### B MP3, DDI2, TROPN, MG3, HEMDF #### [facility] [address] [place] [address] Magnesiumon 07-20-2021 Magnesium [Mass/Vol] 1.6 mg/dL Normal 1.6-2.3 [facility] Comment on above: Performed By: #### B FGI #### [facility] [address] [place] [address] #### FOCC #### [facility] [address] [place] [address] #### OVPO #### The performing lab is in the report. Magnesium [Mass/Vol] 1.6 mg/dL 1.6 - 2 .3 mg/dL [facility] Magnesium [Mass/Vol] 1.0 mg/dL Low 1.6-2.3 [facility] Comment on above: Performed By: #### B FGI #### [facility] [address] [place] [address] #### FOCC #### [facility] [address] [place] [address] #### OVPO #### The performing lab is in the report. Magnesium [Mass/Vol] 1.0 mg/dL Low 1.6 - 2 .3 mg/dL [facility] No Panel Informationon 07-20 Test Performed by [facility], [facility] [address] LAB [facility] Interpretation and review of laboratory results Abnormal [facility] Test Performed by [facility], [address] LAB [facility] TSHon 07-20-2021 TSH Qn 2.059 u[IU]/mL 0.465 - 4.680 u[IU]/mL [facility] Test Performed by [facility], [address] LAB [facility] Thyroid Stim. Hormoneon - Thyroid Stim. Hormone 2.059 u[IU]/mL Normal 0.465-4.68 0 [facility] Comment on above: Performed By: #### B FGI #### [facility] [address] [place], [place] #### FOCC #### [facility] [address] [place] [address] #### OVPO #### The performing lab is in the report. Troponinon 07-20-2021 Troponin I.cardiac [Mass/Vol] ng/mL 0.000 - 0.034 ng/mL [facility] Comment on above: . Test Performed by [facility], [address] LAB [facility] Test Performed by [facility], [address] LAB [facility] Troponin I.cardiac [Mass/Vol] ng/mL 0.000 - 0.034 ng/mL [facility] Comment on above: . Test Performed by [facility], [address] LAB [facility] Troponin Ion 07-20-2021 Troponin I.cardiac [Mass/Vol] ng/mL Normal 0.000-0.034 [facility] Comment on above: Result Comment: . Performed By: #### B FGI #### [facility] [place] [address] [place], [place] #### FOCC #### [facility] [address] [place] [address] #### OVPO #### The performing lab is in the report. Troponin I.cardiac [Mass/Vol] ng/mL Normal 0.000-0.034 [facility] Comment on above: . Result Comment: . Performed By: #### B FGI #### [place] [address] [place], [place] #### FOCC #### [facility] [address] [place] [address] #### OVPO #### The performing lab is in the report. Troponin I.cardiac [Mass/Vol] ng/mL Normal 0.000-0.034 [facility] Comment on above: Result Comment: . Performed By: #### B FGI #### [facility] [address] [place], [place] #### FOCC #### [facility] [address] [place] [address] #### OVPO #### The performing lab is in the report. XR CHEST (2 VW)on 07-20-2021 Patient Name: CATARINA BOYER Diagnostic Radiology ACCESSION EXAM DATE/TIME PROCEDURE ORDERING PROVIDER [id number] 07/20/2021 01:03 EDT CR Chest PA & LAT [id number] -DES ANIS CPT code 80896 Reason For Exam (CR Chest PA & [...] Radiology ACCESSION EXAM DATE/TIME PROCEDURE ORDERING PROVIDER [id number] 07/20/2021 01:03 EDT CR Chest PA & LAT [id number] -TOM NUNES CPT code 64489 Reason For Exam (CR Chest PA & [...] 25-Hydroxy D Total 43.9 ng/mL Normal 30.0-100.0 [facility] Reference Lab Comment on above: Performed By: #### D 2D3 #### [facility] Chemistry [address] [place] [phone] #### CBC, RFP, MG1, PTHI, UACR #### [facility] Routine Lab [address] [place] [phone] 25-Hydroxy D2 43.9 ng/mL Normal [facility] Reference Lab Comment on above: Performed By: #### D 2D3 #### [facility] Chemistry [address] [place] [phone] #### CBC, RFP, MG1, PTHI, UACR #### [facility] Routine Lab [address] [place] [phone] 25-Hydroxy D3 <5.0 Normal [facility] Reference Lab Comment on above: Performed By: #### D 2D3 #### [facility] Chemistry [address] [place] [phone] #### CBC, RFP, MG1, PTHI, UACR #### [facility] Routine Lab [address] [place] [address] Albumin/Creat Ratioon 2021 Albumin Urine Random 235.1 mg/L Normal [facility] Reference Lab Comment on above: Performed By: #### D 2D3 #### [facility] Chemistry [address] [place], [place] [address] #### CBC, RFP, MG1, PTHI, UACR #### [facility] Routine Lab [address] [place] [address] Albumin/Creat Ratio 1130 mg/g High <30 [facility] Reference Lab Comment on above: Performed By: #### D 2D3 #### [facility] Chemistry [address] [place] [address] #### CBC, RFP, MG1, PTHI, UACR #### [facility] Routine Lab [address] [place] [address] Creatinine,Urine,Ran 20.8 mg/dL Normal 20-300 [facility] Reference Lab Comment on above: Performed By: #### D 2D3 #### [facility] Chemistry [address] [place], [place] [address] #### CBC, RFP, MG1, PTHI, UACR #### [facility] Routine Lab [address] [place], [place] [address] CBCon 06-04-2021 Absolute nRBC <0.01 Normal <0.01 [facility] Reference Lab Comment on above: Performed By: #### D 2D3 #### [facility] Chemistry [address] [place] [address] #### CBC, RFP, MG1, PTHI, UACR #### [facility] Routine Lab [address] [place], [place] [address] Erythrocyte distribution width (RBC) [Ratio] 14.0 % Normal 11.5-15.0 [facility] Reference Lab Comment on above: Performed By: #### D 2D3 #### [facility] Chemistry [address] [place] [phone] #### CBC, RFP, MG1, PTHI, UACR #### [facility] Routine Lab [address] [place] [phone] Hematocrit (Bld) [Volume fraction] 36.0 % Normal 36.0-46.0 [facility] Reference Lab Comment on above: Performed By: #### D 2D3 #### [facility] Chemistry [address] [place] [phone] #### CBC, RFP, MG1, PTHI, UACR #### [facility] Routine Lab [address] [place] [phone] Hemoglobin (Bld) [Mass/Vol] 10.9 g/dL Low 11.5-15.5 [facility] Reference Lab Comment on above: Performed By: #### D 2D3 #### [facility] Chemistry [address] [place] [phone] #### CBC, RFP, MG1, PTHI, UACR #### [facility] Routine Lab [address] [place] [phone] MCH 28.3 pG Normal 26.0-34.0 [facility] Reference Lab Comment on above: Performed By: #### D 2D3 #### [facility] Chemistry [address] [place] [phone] #### CBC, RFP, MG1, PTHI, UACR #### [facility] Routine Lab [address] [place] [phone] MCHC (RBC) [Mass/Vol] 30.3 g/dL Low 30.5-36.0 [facility] Reference Lab Comment on above: Performed By: #### D 2D3 #### [facility] Chemistry [address] [place] [phone] #### CBC, RFP, MG1, PTHI, UACR #### [facility] Routine Lab [address] [place], [place] [address] MCV (RBC) [Entitic vol] 93.5 fL Normal 80.0-100.0 C [facility] Reference Lab Comment on above: Performed By: #### D 2D3 #### [facility] Chemistry [address] [place] [address] #### CBC, RFP, MG1, PTHI, UACR #### [facility] Routine Lab [address] [place], [place] [address] Platelet mean volume (Bld) [Entitic vol] 11.0 fL Normal 9.0-12.7 [facility] Reference Lab Comment on above: Performed By: #### D 2D3 #### [facility] Chemistry [address] [place] [address] #### CBC, RFP, MG1, PTHI, UACR #### [facility] Routine Lab [address] [place], [place] [address] Platelets (Bld) [#/Vol] 326 10*3/uL Normal 150-400 [facility] Reference Lab Comment on above: Performed By: #### D 2D3 #### [facility] Chemistry [address] [place] [address] #### CBC, RFP, MG1, PTHI, UACR #### [facility] Routine Lab [address] [place] [address] RBC (Bld) [#/Vol] 3.85 10*6/uL Low 3.90-5.20 [facility] Reference Lab Comment on above: Performed By: #### D 2D3 #### [facility] Chemistry [address] [place] [address] #### CBC, RFP, MG1, PTHI, UACR #### [facility] Routine Lab [address] [place], [place] [address] WBC (Bld) [#/Vol] 9.61 10*3/uL Normal 3.70-11.00 [facility] Reference Lab Comment on above: Performed By: #### D 2D3 #### [facility] Chemistry [address] [place] [phone] #### CBC, RFP, MG1, PTHI, UACR #### [facility] Routine Lab [address] [place] [address] Magnesiumon 06-04-2021 Magnesium [Mass/Vol] 1.1 mg/dL Low 1.7-2.3 [facility] Reference Lab Comment on above: Performed By: #### D 2D3 #### [facility] Chemistry [address] [place] [address] #### CBC, RFP, MG1, PTHI, UACR #### [facility] Routine Lab [address] [place] [address] PTH, Intacton 06-04-2021 PTH, Intact 352 pg/mL High 15-65 [facility] Reference Lab Comment on above: Performed By: #### D 2D3 #### [facility] Chemistry [address] [place] [address] #### CBC, RFP, MG1, PTHI, UACR #### [facility] Routine Lab [address] [place], [place] [phone] Renal Function Panelon 06-04 Potassium Critically high 3.7-5.1 [facility] Reference Lab Comment on above: Result Comment: 6.1 Called to and read back by: Ramu Falcon M.D. [facility] 06/04/21 Louise Weeks Performed By: #### D 2D3 #### [facility] Chemistry [address] [place], [place] [phone] #### CBC, RFP, MG1, PTHI, UACR #### [facility] Routine Lab [address] [place], [place] [phone] Albumin [Mass/Vol] 4.3 g/dL Normal 3.9-4.9 [facility] Reference Lab Comment on above: Performed By: #### D 2D3 #### [facility] Chemistry [address] [place] [address] #### CBC, RFP, MG1, PTHI, UACR #### [facility] Routine Lab [address] [place] [address] Anion gap [Moles/Vol] 12 mmol/L Normal 9-18 [facility] Reference Lab Comment on above: Performed By: #### D 2D3 #### [facility] Chemistry [address] [place] [address] #### CBC, RFP, MG1, PTHI, UACR #### [facility] Routine Lab [address] [place] [address] Calcium [Mass/Vol] 9.8 mg/dL Normal 8.5-10.2 [facility] Reference Lab Comment on above: Performed By: #### D 2D3 #### [facility] Chemistry [address] [place] [address] #### CBC, RFP, MG1, PTHI, UACR #### [facility] Routine Lab [address] [place] [address] Chloride [Moles/Vol] 101 mmol/L Normal 97-105 [facility] Reference Lab Comment on above: Performed By: #### D 2D3 #### [facility] Chemistry [address] [place] [address] #### CBC, RFP, MG1, PTHI, UACR #### [facility] Routine Lab [address] [place] [address] CO2 [Moles/Vol] 18 mmol/L Low 22-30 [facility] Reference Lab Comment on above: Performed By: #### D 2D3 #### [facility] Chemistry [address] [place], [place] [address] #### CBC, RFP, MG1, PTHI, UACR #### [facility] Routine Lab [address] [place], [place] [address] Creatinine [Mass/Vol] 2.28 mg/dL High 0.58-0.96 [facility] Reference Lab Comment on above: Performed By: #### D 2D3 #### [facility] Chemistry [address] [place] [address] #### CBC, RFP, MG1, PTHI, UACR #### [facility] Routine Lab [address] [place] [address] eGFR- Amer. 27 Normal [facility] Reference Lab Comment on above: Performed By: #### D 2D3 #### [facility] Chemistry [address] [place] [address] #### CBC, RFP, MG1, PTHI, UACR #### [facility] Routine Lab [address] [place] [address] eGFR-All Other Races 22 . Normal [facility] Reference Lab Comment on above: Performed By: #### D 2D3 #### [facility] Chemistry [address] [place] [address] #### CBC, RFP, MG1, PTHI, UACR #### [facility] Routine Lab [address] [place] [phone] Glucose [Mass/Vol] 85 mg/dL Normal 74-99 [facility] Reference Lab Comment on above: Performed By: #### D 2D3 #### [facility] Chemistry [address] [place] [address] #### CBC, RFP, MG1, PTHI, UACR #### [facility] Routine Lab [address] [place] [address] Phosphate [Mass/Vol] 3.9 mg/dL Normal 2.7-4.8 [facility] Reference Lab Comment on above: Performed By: #### D 2D3 #### [facility] Chemistry [address] [place], [place] [address] #### CBC, RFP, MG1, PTHI, UACR #### [facility] Routine Lab [address] [place], [place] [address] Sodium [Moles/Vol] 131 mmol/L Low 136-144 [facility] Reference Lab Comment on above: Performed By: #### D 2D3 #### [facility] Chemistry [address] [place] [address] #### CBC, RFP, MG1, PTHI, UACR #### [facility] Routine Lab [address] [place] [address] Urea nitrogen [Mass/Vol] 36 mg/dL High 7-21 [facility] Reference Lab Comment on above: Performed By: #### D 2D3 #### [facility] Chemistry [address] [place] [address] #### CBC, RFP, MG1, PTHI, UACR #### [facility] Routine Lab [address] [place] [phone] Renal Function Panelon 03-19 Albumin [Mass/Vol] 4.4 g/dL Normal 3.9-4.9 [facility] Reference Lab Comment on above: Performed By: #### D 2D3 #### [facility] Chemistry [address] [place], [place] [address] #### CBC, RFP, MG1, PTHI, UACR #### [facility] Routine Lab [address] [place], [place] [address] Anion gap [Moles/Vol] 14 mmol/L Normal 9-18 [facility] Reference Lab Comment on above: Performed By: #### D 2D3 #### [facility] Chemistry [address] [place] [address] #### CBC, RFP, MG1, PTHI, UACR #### [facility] Routine Lab [address] [place] [address] Calcium [Mass/Vol] 9.9 mg/dL Normal 8.5-10.2 [facility] Reference Lab Comment on above: Performed By: #### D 2D3 #### [facility] Chemistry [address] [place] [address] #### CBC, RFP, MG1, PTHI, UACR #### [facility] Routine Lab [address] [place] [phone] Chloride [Moles/Vol] 105 mmol/L Normal 97-105 [facility] Reference Lab Comment on above: Performed By: #### D 2D3 #### [facility] Chemistry [address] [place] [phone] #### CBC, RFP, MG1, PTHI, UACR #### [facility] Routine Lab [address] [place] [address] CO2 [Moles/Vol] 18 mmol/L Low 22-30 [facility] Reference Lab Comment on above: Performed By: #### D 2D3 #### [facility] Chemistry [address] [place] [phone] #### CBC, RFP, MG1, PTHI, UACR #### [facility] Routine Lab [address] [place] [address] Creatinine [Mass/Vol] 2.37 mg/dL High 0.58-0.96 [facility] Reference Lab Comment on above: Performed By: #### D 2D3 #### [facility] Chemistry [address] [place] [address] #### CBC, RFP, MG1, PTHI, UACR #### [facility] Routine Lab [address] [address] eGFR- Amer. 25 Normal [facility] Reference Lab Comment on above: Performed By: #### D 2D3 #### [facility] Chemistry [address] [place] [address] #### CBC, RFP, MG1, PTHI, UACR #### [facility] Routine Lab [address] [place] [address] eGFR-All Other Races 21 . Normal [facility] Reference Lab Comment on above: Performed By: #### D 2D3 #### [facility] Chemistry [address] [place] [address] #### CBC, RFP, MG1, PTHI, UACR #### [facility] Routine Lab [address] [place] [address] Glucose [Mass/Vol] 71 mg/dL Low 74-99 [facility] Reference Lab Comment on above: Performed By: #### D 2D3 #### [facility] Chemistry [address] [address] #### CBC, RFP, MG1, PTHI, UACR #### [facility] Routine Lab [address] [place] [address] Phosphate [Mass/Vol] 3.6 mg/dL Normal 2.7-4.8 [facility] Reference Lab Comment on above: Performed By: #### D 2D3 #### [facility] Chemistry [address] [phone] #### CBC, RFP, MG1, PTHI, UACR #### [facility] Routine Lab [address] [address] Potassium [Moles/Vol] 5.4 mmol/L High 3.7-5.1 [facility] Reference Lab Comment on above: Performed By: #### D 2D3 #### [facility] Chemistry [address] [address] #### CBC, RFP, MG1, PTHI, UACR #### [facility] Routine Lab [address] [address] Sodium [Moles/Vol] 137 mmol/L Normal 136-144 [facility] Reference Lab Comment on above: Performed By: #### D 2D3 #### [facility] Chemistry [address] [place] [address] #### CBC, RFP, MG1, PTHI, UACR #### [facility] Routine Lab [address] [place] [address] Urea nitrogen [Mass/Vol] 30 mg/dL High 7-21 [facility] Reference Lab Comment on above: Performed By: #### D 2D3 #### [facility] Chemistry [address] [place] [address] #### CBC, RFP, MG1, PTHI, UACR #### [facility] Routine Lab [address] [place] [address] 25-Hydroxy D2+D3on 1 25-Hydroxy D Total 28.9 ng/mL Low 30.0-100.0 [facility] Reference Lab Comment on above: Performed By: #### D 2D3 #### [facility] Chemistry [address] [place] [phone] #### CBC, RFP, MG1, PTHI, UACR #### [facility] Laboratories Routine Lab [address] [place] [address] 25-Hydroxy D2 28.9 ng/mL Normal [facility] Reference Lab Comment on above: Performed By: #### D 2D3 #### [facility] Chemistry [address] [place] [address] #### CBC, RFP, MG1, PTHI, UACR #### [facility] Routine Lab [address] [place] [address] 25-Hydroxy D3 <4.0 Normal [facility] Reference Lab Comment on above: Performed By: #### D 2D3 #### [facility] Chemistry [address] [address] #### CBC, RFP, MG1, PTHI, UACR #### [facility] Routine Lab [address] [address] Albumin/Creat Ratioon 2020 Albumin Urine Random 208.0 mg/L Normal [facility] Reference Lab Comment on above: Performed By: #### D 2D3 #### [facility] Chemistry [address] [phone] #### CBC, RFP, MG1, PTHI, UACR #### [facility] Routine Lab [address] [phone] Albumin/Creat Ratio 1189 mg/g High <30 [facility] Reference Lab Comment on above: Performed By: #### D 2D3 #### [facility] Chemistry [address] [phone] #### CBC, RFP, MG1, PTHI, UACR #### [facility] Routine Lab [address] [address] Creatinine,Urine,Ran 17.5 mg/dL Low 20-300 [facility] Reference Lab Comment on above: Performed By: #### D 2D3 #### [facility] Laboratories Chemistry [address] [phone] #### CBC, RFP, MG1, PTHI, UACR #### [facility] Routine Lab [address] [address] CBCon 03-04-2021 Absolute nRBC <0.01 Normal <0.01 [facility] Reference Lab Comment on above: Performed By: #### D 2D3 #### [facility] Chemistry [address] [address] #### CBC, RFP, MG1, PTHI, UACR #### [facility] Routine Lab [address] [phone] Erythrocyte distribution width (RBC) [Ratio] 13.7 % Normal 11.5-15.0 [facility] Reference Lab Comment on above: Performed By: #### D 2D3 #### [facility] Chemistry [address] [place] [phone] #### CBC, RFP, MG1, PTHI, UACR #### [facility] Routine Lab [address] [place] [phone] Hematocrit (Bld) [Volume fraction] 37.2 % Normal 36.0-46.0 [facility] Reference Lab Comment on above: Performed By: #### D 2D3 #### [facility] Chemistry [address] [place] [phone] #### CBC, RFP, MG1, PTHI, UACR #### [facility] Routine Lab [address] [place] [phone] Hemoglobin (Bld) [Mass/Vol] 11.3 g/dL Low 11.5-15.5 [facility] Reference Lab Comment on above: Performed By: #### D 2D3 #### [facility] Chemistry [address] [place] [phone] #### CBC, RFP, MG1, PTHI, UACR #### [facility] Routine Lab [address] [place] [phone] MCH 27.8 pG Normal 26.0-34.0 [facility] Reference Lab Comment on above: Performed By: #### D 2D3 #### [facility] Chemistry [address] [place] [phone] #### CBC, RFP, MG1, PTHI, UACR #### [facility] Routine Lab [address] [place] [phone] MCHC (RBC) [Mass/Vol] 30.4 g/dL Low 30.5-36.0 [facility] Reference Lab Comment on above: Performed By: #### D 2D3 #### [facility] Chemistry [address] [place] [phone] #### CBC, RFP, MG1, PTHI, UACR #### [facility] Routine Lab [address] [address] MCV (RBC) [Entitic vol] 91.6 fL Normal 80.0-100.0 [facility] Reference Lab Comment on above: Performed By: #### D 2D3 #### [facility] Chemistry [address] [place] [phone] #### CBC, RFP, MG1, PTHI, UACR #### [facility] Routine Lab [address] [place] [phone] Platelet mean volume (Bld) [Entitic vol] 11.8 fL Normal 9.0-12.7 [facility] Reference Lab Comment on above: Performed By: #### D 2D3 #### [facility] Chemistry [address] [place] [phone] #### CBC, RFP, MG1, PTHI, UACR #### [facility] Routine Lab [address] [place] [address] Platelets (Bld) [#/Vol] 326 10*3/uL Normal 150-400 [facility] Reference Lab Comment on above: Performed By: #### D 2D3 #### [facility] Chemistry [address] [place] [address] #### CBC, RFP, MG1, PTHI, UACR #### [facility] Routine Lab [address] [place] [address] RBC (Bld) [#/Vol] 4.06 10*6/uL Normal 3.90-5.20 [facility] Reference Lab Comment on above: Performed By: #### D 2D3 #### [facility] Chemistry [address] [place], [place] [phone] #### CBC, RFP, MG1, PTHI, UACR #### [facility] Routine Lab [address] [place], [place] [phone] WBC (Bld) [#/Vol] 8.88 10*3/uL Normal 3.70-11.00 [facility] Reference Lab Comment on above: Performed By: #### D 2D3 #### [facility] Chemistry [address] [place] [address] #### CBC, RFP, MG1, PTHI, UACR #### [facility] Routine Lab [address] [place] [address] [phone] Magnesiumon 03-04-2021 Magnesium [Mass/Vol] 1.2 mg/dL Low 1.7-2.3 [facility] Reference Lab Comment on above: Performed By: #### D 2D3 #### [facility] Chemistry [address] [place] [address] #### CBC, RFP, MG1, PTHI, UACR #### [facility] Routine Lab [address] [place] [address] [phone] PTH, Intacton 03-04-2021 PTH, Intact 286 pg/mL High 15-65 [facility] Reference Lab Comment on above: Performed By: #### D 2D3 #### [facility] Chemistry [address] [place] [address] [phone] #### CBC, RFP, MG1, PTHI, UACR #### [facility] Routine Lab [address] [place] [address] Renal Function Panelon 03-04 Albumin [Mass/Vol] 4.6 g/dL Normal 3.9-4.9 [facility] Reference Lab Comment on above: Performed By: #### D 2D3 #### [facility] Chemistry [address] [place] [address] [phone] #### CBC, RFP, MG1, PTHI, UACR #### [facility] Routine Lab [address], [place] [phone] Anion gap [Moles/Vol] 12 mmol/L Normal 9-18 [facility] Reference Lab Comment on above: Performed By: #### D 2D3 #### [facility] Chemistry [address] [place], [place] [address] #### CBC, RFP, MG1, PTHI, UACR #### [facility] Routine Lab [address] [place], [place] [address] Calcium [Mass/Vol] 10.0 mg/dL Normal 8.5-10.2 [facility] Reference Lab Comment on above: Performed By: #### D 2D3 #### [facility] Chemistry [address] [place], [place] [address] #### CBC, RFP, MG1, PTHI, UACR #### [facility] Routine Lab [address] [place], [place] [address] Chloride [Moles/Vol] 102 mmol/L Normal 97-105 [facility] Reference Lab Comment on above: Performed By: #### D 2D3 #### [facility] Chemistry [address] [place], [place] [address] #### CBC, RFP, MG1, PTHI, UACR #### [facility] Routine Lab [address] [place], [place] [address] CO2 [Moles/Vol] 19 mmol/L Low 22-30 [facility] Reference Lab Comment on above: Performed By: #### D 2D3 #### [facility] Chemistry [address] [place], [place] [address] #### CBC, RFP, MG1, PTHI, UACR #### [facility] Routine Lab [address] [place], [place] [address] Creatinine [Mass/Vol] 2.25 mg/dL High 0.58-0.96 [facility] Reference Lab Comment on above: Performed By: #### D 2D3 #### [facility] Chemistry [address] [phone] #### CBC, RFP, MG1, PTHI, UACR #### [facility] Routine Lab [address] [phone] eGFR- Amer. 27 Normal [facility] Reference Lab Comment on above: Performed By: #### D 2D3 #### [facility] Chemistry [address] [place] [phone] #### CBC, RFP, MG1, PTHI, UACR #### [facility] Routine Lab [address] [place] [address] eGFR-All Other Races 22 . Normal [facility] Reference Lab Comment on above: Performed By: #### D 2D3 #### [facility] Chemistry [address] [phone] #### CBC, RFP, MG1, PTHI, UACR #### [facility] Routine Lab [address] [address] Glucose [Mass/Vol] 63 mg/dL Low 74-99 [facility] Reference Lab Comment on above: Performed By: #### D 2D3 #### [facility] Chemistry [address] [phone] #### CBC, RFP, MG1, PTHI, UACR #### [facility] Routine Lab [address] [phone] Phosphate [Mass/Vol] 3.5 mg/dL Normal 2.7-4.8 [facility] Reference Lab Comment on above: Performed By: #### D 2D3 #### [facility] Chemistry [address] [phone] #### CBC, RFP, MG1, PTHI, UACR #### [facility] Routine Lab [address] [place], [place] [address] Potassium [Moles/Vol] 5.5 mmol/L High 3.7-5.1 [facility] Reference Lab Comment on above: Performed By: #### D 2D3 #### [facility] Chemistry [address] [place], [place] [address] #### CBC, RFP, MG1, PTHI, UACR #### [facility] Routine Lab [address] [place], [place] [address] Sodium [Moles/Vol] 133 mmol/L Low 136-144 [facility] Reference Lab Comment on above: Performed By: #### D 2D3 #### [facility] Chemistry [address] [place], [place] [phone] #### CBC, RFP, MG1, PTHI, UACR #### [facility] Routine Lab [address] [place], [place] [address] Urea nitrogen [Mass/Vol] 30 mg/dL High - [facility] Reference Lab Comment on above: Performed By: #### D 2D3 #### [facility] Chemistry [address] [place], [place] [address] #### CBC, RFP, MG1, PTHI, UACR #### [facility] Routine Lab [address] [address] Magnesiumon 11-11-2020 Magnesium Low 1.7-2.3 [facility] Reference Lab Comment on above: Result Comment: 0.6 Called to and read back by: Dr Gilma Moreno [facility] 11/11/201957 Gilma Pulliam Performed By: #### D 2D3 #### [facility] Chemistry [address] [place], [place] [address] #### CBC, RFP, MG1, PTHI, UACR #### [facility] Routine Lab [address] [phone] Renal Function Panelon 11-11 Albumin [Mass/Vol] 4.2 g/dL Normal 3.9-4.9 [facility] Reference Lab Comment on above: Performed By: #### D 2D3 #### [facility] Chemistry [address] [place], [place] [address] #### CBC, RFP, MG1, PTHI, UACR #### [facility] Routine Lab [address] [phone] Anion gap [Moles/Vol] 16 mmol/L Normal 9-18 [facility] Reference Lab Comment on above: Performed By: #### D 2D3 #### [facility] Chemistry [address] [place] [address] #### CBC, RFP, MG1, PTHI, UACR #### [facility] Routine Lab [address] [place] [address] Calcium [Mass/Vol] 8.8 mg/dL Normal 8.5-10.2 [facility] Reference Lab Comment on above: Performed By: #### D 2D3 #### [facility] Chemistry [address] [place] [address] #### CBC, RFP, MG1, PTHI, UACR #### [facility] Routine Lab [address] [place], [place] [address] Chloride [Moles/Vol] 101 mmol/L Normal 97-105 [facility] Reference Lab Comment on above: Performed By: #### D 2D3 #### [facility] Chemistry [address] [place], [place] [address] #### CBC, RFP, MG1, PTHI, UACR #### [facility] Routine Lab [address] [place], [place] [address] CO2 [Moles/Vol] 17 mmol/L Low 22-30 [facility] Reference Lab Comment on above: Performed By: #### D 2D3 #### [facility] Chemistry [address] [place], [place] [address] #### CBC, RFP, MG1, PTHI, UACR #### [facility] Routine Lab [address] [place], [place] [address] Creatinine [Mass/Vol] 2.01 mg/dL High 0.58-0.96 [facility] Reference Lab Comment on above: Performed By: #### D 2D3 #### [facility] Chemistry [address] [place] [address] #### CBC, RFP, MG1, PTHI, UACR #### [facility] Routine Lab [address] [place] [address] eGFR- Amer. 31 Normal [facility] Reference Lab Comment on above: Performed By: #### D 2D3 #### [facility] Chemistry [address] [place] [phone] #### CBC, RFP, MG1, PTHI, UACR #### [facility] Routine Lab [address] [place] [address] eGFR-All Other Races 25 . Normal [facility] Reference Lab Comment on above: Performed By: #### D 2D3 #### [facility] Chemistry [address] [place] [address] #### CBC, RFP, MG1, PTHI, UACR #### [facility] Routine Lab [address] [place], [place] [address] Glucose [Mass/Vol] 84 mg/dL Normal 74-99 [facility] Reference Lab Comment on above: Performed By: #### D 2D3 #### [facility] Chemistry [address] [place] [address] #### CBC, RFP, MG1, PTHI, UACR #### [facility] Routine Lab [address] [place], [place] [address] Phosphate [Mass/Vol] 3.5 mg/dL Normal 2.7-4.8 [facility] Reference Lab Comment on above: Performed By: #### D 2D3 #### [facility] Chemistry [address] [address] #### CBC, RFP, MG1, PTHI, UACR #### [facility] Routine Lab [address] [address] Potassium [Moles/Vol] 5.0 mmol/L Normal 3.7-5.1 [facility] Reference Lab Comment on above: Performed By: #### D 2D3 #### [facility] Chemistry [address] [place] [address] #### CBC, RFP, MG1, PTHI, UACR #### [facility] Routine Lab [address] [place] [address] Sodium [Moles/Vol] 134 mmol/L Low 136-144 [facility] Reference Lab Comment on above: Performed By: #### D 2D3 #### [facility] Chemistry [address] [place] [address] #### CBC, RFP, MG1, PTHI, UACR #### [facility] Routine Lab [address] [place], [place] [phone] Urea nitrogen [Mass/Vol] 29 mg/dL High 7-21 [facility] Reference Lab Comment on above: Performed By: #### D 2D3 #### [facility] Chemistry [address] [place] [address] #### CBC, RFP, MG1, PTHI, UACR #### [facility] Routine Lab [address] [place] [address] 25-Hydroxy D2+D3on 1 25-Hydroxy D Total 24.8 ng/mL Low 30.0-100.0 [facility] Reference Lab Comment on above: Performed By: #### D 2D3 #### [facility] Chemistry [address] [address] #### CBC, RFP, MG1, PTHI, UACR #### [facility] Routine Lab [address] [address] 25-Hydroxy D2 24.8 ng/mL Normal [facility] Reference Lab Comment on above: Performed By: #### D 2D3 #### [facility] Chemistry [address] [phone] #### CBC, RFP, MG1, PTHI, UACR #### [facility] Routine Lab [address] [phone] 25-Hydroxy D3 <4.0 Normal [facility] Reference Lab Comment on above: Performed By: #### D 2D3 #### [facility] Chemistry [address] [phone] #### CBC, RFP, MG1, PTHI, UACR #### [facility] Routine Lab [address] [address] Albumin/Creat Ratioon 2020 Albumin Urine Random 362.1 mg/L Normal [facility] Reference Lab Comment on above: Performed By: #### D 2D3 #### [facility] Chemistry [address] [phone] #### CBC, RFP, MG1, PTHI, UACR #### [facility] Routine Lab [address] [phone] Albumin/Creat Ratio 1631 mg/g High <30 [facility] Reference Lab Comment on above: Performed By: #### D 2D3 #### [facility] Chemistry [address] [phone] #### CBC, RFP, MG1, PTHI, UACR #### [facility] Routine Lab [address] [address] Creatinine,Urine,Ran 22.2 mg/dL Normal 20-300 [facility] Reference Lab Comment on above: Performed By: #### D 2D3 #### [facility] Chemistry [address] [place] [address] #### CBC, RFP, MG1, PTHI, UACR #### [facility] Routine Lab [address] [address] Magnesiumon 11-04-2020 Magnesium Low 1.7-2.3 [facility] Reference Lab Comment on above: Result Comment: 0.6 Called to: Dr. Ramu [facility] 11/04/20 [address] Flores Performed By: #### D 2D3 #### [facility] Chemistry [address] [place] [address] #### PTHI, UACR, MG1, RFP, CBC #### [facility] Routine Lab [address] [place], [place] [phone] PTH, Intacton 11-04-2020 PTH, Intact 218 pg/mL High 15-65 [facility] Reference Lab Comment on above: Performed By: #### D 2D3 #### [facility] Chemistry [address] [place], [place] [phone] #### PTHI, UACR, MG1, RFP, CBC #### [facility] Routine Lab [address] [place] [address] Renal Function Panelon 11-04 Albumin [Mass/Vol] 4.2 g/dL Normal 3.9-4.9 [facility] Reference Lab Comment on above: Performed By: #### D 2D3 #### [facility] Chemistry [address] [place] [address] #### PTHI, UACR, MG1, RFP, CBC #### [facility] Routine Lab [address] [place] [address] Anion gap [Moles/Vol] 15 mmol/L Normal 9-18 [facility] Reference Lab Comment on above: Performed By: #### D 2D3 #### [facility] Chemistry [address] [address] #### PTHI, UACR, MG1, RFP, CBC #### [facility] Routine Lab [address] [address] Calcium [Mass/Vol] 8.5 mg/dL Normal 8.5-10.2 [facility] Reference Lab Comment on above: Performed By: #### D 2D3 #### [facility] Chemistry [address] [address] #### PTHI, UACR, MG1, RFP, CBC #### [facility] Routine Lab [address] [phone] Chloride [Moles/Vol] 100 mmol/L Normal 97-105 [facility] Reference Lab Comment on above: Performed By: #### D 2D3 #### [facility] Chemistry [address] [address] #### PTHI, UACR, MG1, RFP, CBC #### [facility] Routine Lab [address] [address] CO2 [Moles/Vol] 20 mmol/L Low 22-30 [facility] Reference Lab Comment on above: Performed By: #### D 2D3 #### [facility] Chemistry [address] [address] #### PTHI, UACR, MG1, RFP, CBC #### [facility] Routine Lab [address] [address] Creatinine [Mass/Vol] 1.93 mg/dL High 0.58-0.96 [facility] Reference Lab Comment on above: Performed By: #### D 2D3 #### [facility] Chemistry [address] [address] #### PTHI, UACR, MG1, RFP, CBC #### [facility] Routine Lab [address] [address] eGFR- Amer. 32 Normal [facility] Reference Lab Comment on above: Performed By: #### D 2D3 #### [facility] Chemistry [address] [place] [address] #### PTHI, UACR, MG1, RFP, CBC #### [facility] Routine Lab [address] [address] eGFR-All Other Races 27 . Normal [facility] Reference Lab Comment on above: Performed By: #### D 2D3 #### [facility] Chemistry [address] [place] [address] #### PTHI, UACR, MG1, RFP, CBC #### [facility] Routine Lab [address] [address] Glucose [Mass/Vol] 78 mg/dL Normal 74-99 [facility] Reference Lab Comment on above: Performed By: #### D 2D3 #### [facility] Chemistry [address] [phone] #### PTHI, UACR, MG1, RFP, CBC #### [facility] Routine Lab [address] [address] Phosphate [Mass/Vol] 3.2 mg/dL Normal 2.7-4.8 [facility] Reference Lab Comment on above: Performed By: #### D 2D3 #### [facility] [employer] Chemistry [address] [address] #### PTHI, UACR, MG1, RFP, CBC #### [facility] Routine Lab [address] [address] Potassium [Moles/Vol] 4.7 mmol/L Normal 3.7-5.1 [facility] Reference Lab Comment on above: Performed By: #### D 2D3 #### [facility] Chemistry [address] [place], [place] [address] #### PTHI, UACR, MG1, RFP, CBC #### [facility] Routine Lab [address] [place], [place] [address] Sodium [Moles/Vol] 135 mmol/L Low 136-144 [facility] Reference Lab Comment on above: Performed By: #### D 2D3 #### [facility] Chemistry [address] [place] [address] #### PTHI, UACR, MG1, RFP, CBC #### [facility] Routine Lab [address] [place] [address] Urea nitrogen [Mass/Vol] 23 mg/dL High 7-21 [facility] Reference Lab Comment on above: Performed By: #### D 2D3 #### [facility] Chemistry [address] [place] [address] #### PTHI, UACR, MG1, RFP, CBC #### [facility] Routine Lab [address] [place] [address] CBCon 11-03-2020 Absolute nRBC <0.01 Normal <0.01 [facility] Reference Lab Comment on above: Performed By: #### D 2D3 #### [facility] Chemistry [address] [address] #### PTHI, UACR, MG1, RFP, CBC #### [facility] Routine Lab [address] [place] [address] Erythrocyte distribution width (RBC) [Ratio] 13.9 % Normal 11.5-15.0 [facility] Reference Lab Comment on above: Performed By: #### D 2D3 #### [facility] Chemistry [address] [place], [place] [address] #### PTHI, UACR, MG1, RFP, CBC #### [facility] Routine Lab [address] [address] Hematocrit (Bld) [Volume fraction] 34.5 % Low 36.0-46.0 [facility] Reference Lab Comment on above: Performed By: #### D 2D3 #### [facility] Chemistry [address] [place] [phone] #### PTHI, UACR, MG1, RFP, CBC #### [facility] Routine Lab [address] [place] [phone] Hemoglobin (Bld) [Mass/Vol] 10.8 g/dL Low 11.5-15.5 [facility] Reference Lab Comment on above: Performed By: #### D 2D3 #### [facility] Chemistry [address] [place] [phone] #### PTHI, UACR, MG1, RFP, CBC #### [facility] Routine Lab [address] [place] [phone] MCH 26.9 pG Normal 26.0-34.0 [facility] Reference Lab Comment on above: Performed By: #### D 2D3 #### [facility] Chemistry [address] [place] [phone] #### PTHI, UACR, MG1, RFP, CBC #### [facility] Routine Lab [address] [place] [phone] MCHC (RBC) [Mass/Vol] 31.3 g/dL Normal 30.5-36.0 [facility] Reference Lab Comment on above: Performed By: #### D 2D3 #### [facility] Chemistry [address] [place] [phone] #### PTHI, UACR, MG1, RFP, CBC #### [facility] Routine Lab [address] [place] [phone] MCV (RBC) [Entitic vol] 86.0 fL Normal 80.0-100.0 [facility] Reference Lab Comment on above: Performed By: #### D 2D3 #### [facility] Chemistry [address] [place], [place] [address] #### PTHI, UACR, MG1, RFP, CBC #### [facility] Routine Lab [address] [place], [place] [address] Platelet mean volume (Bld) [Entitic vol] 12.1 fL Normal 9.0-12.7 [facility] Reference Lab Comment on above: Performed By: #### D 2D3 #### [facility] Chemistry [address] [place] [address] #### PTHI, UACR, MG1, RFP, CBC #### [facility] Routine Lab [address] [place] [address] Platelets (Bld) [#/Vol] 278 10*3/uL Normal 150-400 [facility] Reference Lab Comment on above: Performed By: #### D 2D3 #### [facility] Chemistry [address] [place] [address] #### PTHI, UACR, MG1, RFP, CBC #### [facility] Routine Lab [address] [place] [address] RBC (Bld) [#/Vol] 4.01 10*6/uL Normal 3.90-5.20 [facility] Reference Lab Comment on above: Performed By: #### D 2D3 #### [facility] Chemistry [address] [place] [address] #### PTHI, UACR, MG1, RFP, CBC #### [facility] Routine Lab [address] [address] WBC (Bld) [#/Vol] 11.38 10*3/uL High 3.70-11.00 [facility] Reference Lab Comment on above: Performed By: #### D 2D3 #### [facility] Chemistry [address] [phone] #### PTHI, UACR, MG1, RFP, CBC #### [facility] Routine Lab [address] [phone] 25-Hydroxy D2+D3on 25-Hydroxy D Total 36.6 ng/mL Normal 30.0-100.0 [facility] Reference Lab Comment on above: Performed By: #### D 2D3 #### [facility] Chemistry [address] [place] [phone] #### CBC, RFP, MG1, PTHI, UACR #### [facility] Routine Lab [address] [phone] 25-Hydroxy D2 36.6 ng/mL Normal [facility] Reference Lab Comment on above: Performed By: #### D 2D3 #### [facility] Chemistry [address] [phone] #### CBC, RFP, MG1, PTHI, UACR #### [facility] Routine Lab [address] [phone] 25-Hydroxy D3 <4.0 Normal [facility] Reference Lab Comment on above: Performed By: #### D 2D3 #### [facility] Chemistry [address] [phone] #### CBC, RFP, MG1, PTHI, UACR #### [facility] Routine Lab [address] [phone] Albumin/Creat Ratioon 2020 Albumin Urine Random 313.8 mg/L Normal [facility] Reference Lab Comment on above: Performed By: #### D 2D3 #### [facility] Chemistry [address] [phone] #### CBC, RFP, MG1, PTHI, UACR #### [facility] Routine Lab [address] [address] Albumin/Creat Ratio 1561 mg/g High <30 [facility] Reference Lab Comment on above: Performed By: #### D 2D3 #### [facility] Chemistry [address] [place] [address] #### CBC, RFP, MG1, PTHI, UACR #### [facility] Routine Lab [address] [address] Creatinine,Urine,Ran 20.1 mg/dL Normal 20-300 [facility] Reference Lab Comment on above: Performed By: #### D 2D3 #### [facility] Chemistry [address] [place] [address] #### CBC, RFP, MG1, PTHI, UACR #### [facility] Routine Lab [address] [place] [address] CBCon 06-26-2020 Absolute nRBC <0.01 Normal <0.01 [facility] Reference Lab Comment on above: Performed By: #### D 2D3 #### [facility] Chemistry [address] [place] [phone] #### CBC, RFP, MG1, PTHI, UACR #### [facility] Routine Lab [address] [address] Erythrocyte distribution width (RBC) [Ratio] 13.8 % Normal 11.5-15.0 [facility] Reference Lab Comment on above: Performed By: #### D 2D3 #### [facility] Chemistry [address] [address] #### CBC, RFP, MG1, PTHI, UACR #### [facility] Routine Lab [address] [place], [place] [address] Hematocrit (Bld) [Volume fraction] 34.8 % Low 36.0-46.0 [facility] Reference Lab Comment on above: Performed By: #### D 2D3 #### [facility] Chemistry [address] [phone] #### CBC, RFP, MG1, PTHI, UACR #### [facility] Routine Lab [address] [address] Hemoglobin (Bld) [Mass/Vol] 10.5 g/dL Low 11.5-15.5 [facility] Reference Lab Comment on above: Performed By: #### D 2D3 #### [facility] Chemistry [address] [place] [address] #### CBC, RFP, MG1, PTHI, UACR #### [facility] Routine Lab [address] [place] [address] MCH 26.8 pG Normal 26.0-34.0 [facility] Reference Lab Comment on above: Performed By: #### D 2D3 #### [facility] Chemistry [address] [place] [phone] #### CBC, RFP, MG1, PTHI, UACR #### [facility] Routine Lab [address] [place] [phone] MCHC (RBC) [Mass/Vol] 30.2 g/dL Low 30.5-36.0 [facility] Reference Lab Comment on above: Performed By: #### D 2D3 #### [facility] Chemistry [address] [place] [phone] #### CBC, RFP, MG1, PTHI, UACR #### [facility] Routine Lab [address] [place] [phone] MCV (RBC) [Entitic vol] 88.8 fL Normal 80.0-100.0 [facility] Reference Lab Comment on above: Performed By: #### D 2D3 #### [facility] Chemistry [address] [place] [phone] #### CBC, RFP, MG1, PTHI, UACR #### [facility] Routine Lab [address] [address] Platelet mean volume (Bld) [Entitic vol] 11.6 fL Normal 9.0-12.7 [facility] Reference Lab Comment on above: Performed By: #### D 2D3 #### [facility] Laboratories Chemistry [address] [address] #### CBC, RFP, MG1, PTHI, UACR #### [facility] Routine Lab [address] [place] [address] Platelets (Bld) [#/Vol] 295 10*3/uL Normal 150-400 [facility] Reference Lab Comment on above: Performed By: #### D 2D3 #### [facility] Chemistry [address] [place] [phone] #### CBC, RFP, MG1, PTHI, UACR #### [facility] Routine Lab [address] [place] [address] RBC (Bld) [#/Vol] 3.92 10*6/uL Normal 3.90-5.20 [facility] Reference Lab Comment on above: Performed By: #### D 2D3 #### [facility] Chemistry [address] [place] [phone] #### CBC, RFP, MG1, PTHI, UACR #### [facility] Routine Lab [address] [place] [address] WBC (Bld) [#/Vol] 9.56 10*3/uL Normal 3.70-11.00 [facility] Reference Lab Comment on above: Performed By: #### D 2D3 #### [facility] [employer] Chemistry [address] [place] [address] #### CBC, RFP, MG1, PTHI, UACR #### [facility] Routine Lab [address] [place], [place] [phone] Magnesiumon 06-26-2020 Magnesium [Mass/Vol] 1.0 mg/dL Low 1.7-2.3 [facility] Reference Lab Comment on above: Performed By: #### D 2D3 #### [facility] Chemistry [address] [place] [address] #### CBC, RFP, MG1, PTHI, UACR #### [facility] Routine Lab [address] [phone] PTH, Intacton 06-26-2020 PTH, Intact 316 pg/mL High 15-65 [facility] Reference Lab Comment on above: Performed By: #### D 2D3 #### [facility] Chemistry [address] [place] [address] #### CBC, RFP, MG1, PTHI, UACR #### [facility] Routine Lab [address] [place] [address] Renal Function Panelon 06-26 Albumin [Mass/Vol] 4.2 g/dL Normal 3.9-4.9 [facility] Reference Lab Comment on above: Performed By: #### D 2D3 #### [facility] Chemistry [address] [place] [address] #### CBC, RFP, MG1, PTHI, UACR #### [facility] Routine Lab [address] [place] [address] Anion gap [Moles/Vol] 12 mmol/L Normal 9-18 [facility] Reference Lab Comment on above: Performed By: #### D 2D3 #### [facility] Chemistry [address] [place] [address] #### CBC, RFP, MG1, PTHI, UACR #### [facility] Routine Lab [address] [place] [address] Calcium [Mass/Vol] 9.9 mg/dL Normal 8.5-10.2 [facility] Reference Lab Comment on above: Performed By: #### D 2D3 #### [facility] Chemistry [address] [address] #### CBC, RFP, MG1, PTHI, UACR #### [facility] Routine Lab [address] [place] [address] Chloride [Moles/Vol] 98 mmol/L Normal 97-105 [facility] Reference Lab Comment on above: Performed By: #### D 2D3 #### [facility] Chemistry [address] [place] [address] #### CBC, RFP, MG1, PTHI, UACR #### [facility] Routine Lab [address] [place] [phone] CO2 [Moles/Vol] 21 mmol/L Low 22-30 [facility] Reference Lab Comment on above: Performed By: #### D 2D3 #### [facility] Chemistry [address] [place] [phone] #### CBC, RFP, MG1, PTHI, UACR #### [facility] Routine Lab [address] [place] [address] Creatinine [Mass/Vol] 2.03 mg/dL High 0.58-0.96 [facility] Reference Lab Comment on above: Performed By: #### D 2D3 #### [facility] Chemistry [address] [place] [phone] #### CBC, RFP, MG1, PTHI, UACR #### [facility] Routine Lab [address] [place] [phone] eGFR- Amer. 30 Normal [facility] Reference Lab Comment on above: Performed By: #### D 2D3 #### [facility] Chemistry [address] [place] [address] #### CBC, RFP, MG1, PTHI, UACR #### [facility] Routine Lab [address] [place], [place] [address] eGFR-All Other Races 25 . Normal [facility] Reference Lab Comment on above: Performed By: #### D 2D3 #### [facility] Chemistry [address] [place] [address] #### CBC, RFP, MG1, PTHI, UACR #### [facility] Routine Lab [address] [address] Glucose [Mass/Vol] 84 mg/dL Normal 74-99 [facility] Reference Lab Comment on above: Performed By: #### D 2D3 #### [facility] Chemistry [address] [address] #### CBC, RFP, MG1, PTHI, UACR #### [facility] Routine Lab [address] [address] Phosphate [Mass/Vol] 3.6 mg/dL Normal 2.7-4.8 [facility] Reference Lab Comment on above: Performed By: #### D 2D3 #### [facility] Chemistry [address] [address] #### CBC, RFP, MG1, PTHI, UACR #### [facility] Routine Lab [address] [address] Potassium [Moles/Vol] 4.5 mmol/L Normal 3.7-5.1 [facility] Reference Lab Comment on above: Performed By: #### D 2D3 #### [facility] Chemistry [address] [address] #### CBC, RFP, MG1, PTHI, UACR #### [facility] Routine Lab [address] [address] Sodium [Moles/Vol] 131 mmol/L Low 136-144 [facility] Reference Lab Comment on above: Performed By: #### D 2D3 #### [facility] Laboratories Chemistry [address] [place], [place] [address] #### CBC, RFP, MG1, PTHI, UACR #### [facility] Laboratories Routine Lab [address] [place], [place] [phone] Urea nitrogen [Mass/Vol] 26 mg/dL High 7-21 [facility] Reference Lab Comment on above: Performed By: #### D 2D3 #### [facility] Laboratories Chemistry [address] [place], [place] [address] #### CBC, RFP, MG1, PTHI, UACR #### [facility] Laboratories Routine Lab [address] [phone] US ABDOMEN COMPLETEon 2019 Patient Name: CATARINA BOYER ---Ultrasound--- Exam Date/Time 01/08/2020 17:22:16 EDT Exam US Abdomen Complete Ordering Physician MD ZIYAD, CAMILLE Philip Accession Number [id number] CPT4 Codes 59887 () Reason For Exam abd pain and [...] WENDELL Transcribed Date and Time: 01/08/2020 6:00 [employer] [place], [place] Margar[facility], [facility] Incoming Radiology Results From [facility] - 01/08/2020 6:00 PM EDT Patient Name: CATARINA BOYER ---Ultrasound--- Exam Date/Time 01/08/2020 17:22:16 EDT Exam US Abdomen Complete Ordering Physician MD ZIYAD, CAMILLE Philip Accession Number [id number] CPT4 Codes 98637 () Reason For Exam abd pain and [...] WENDELL Transcribed Date and Time: 01/08/2020 6:00 [facility], [place] Magnesiumon 06-13-2019 Interpretation and review of laboratory results Abnormal [place], [place] Magnesium [Mass/Vol] 1.2 mg/dL Low 1.6 - 2 .3 mg/dL [place], [place] Test Performed by [facility], [address] , [place] [id number] [place] [address] CBC Auto DifferentialOrdered By: Dania Falcon on 05-21-2019 Absolute Baso # 0.1 10*3/uL 0 - 0.2 10*3/uL [employer] Work Phone: Absolute Neut # 6.4 10*3/uL 1.8 - 7 10*3/uL [employer] Work Phone: Basophils/100 WBC (Bld) 0.7 % 0 - 2 % S [facility] Work Phone: Eosinophils (Bld) [#/Vol] 0.1 10*3/uL 0 - 0.5 10*3/uL [employer] Work Phone: Eosinophils/100 WBC (Bld) 1.3 % 1 - 6 % [employer] Work Phone: Erythrocyte distribution width (RBC) [Ratio] 13.7 % 11.5 - 14.5 % [employer] Work Phone: Granulocytes/100 WBC (Bld) 64.7 % 40 - 80 % [employer] Work Phone: Hematocrit (Bld) [Volume fraction] 32.5 % Low 35 - 47 % [employer] Work Phone: Hemoglobin (Bld) [Mass/Vol] 10.8 g/dL Low 11.7 - 16 g/dL [employer] Work Phone: Interpretation and review of laboratory results Abnormal [employer] Work Phone: Lymphocytes (Bld) [#/Vol] 2.7 10*3/uL 1 - 4.3 10*3/uL [employer] Work Phone: Lymphocytes/100 WBC (Bld) 26.8 % 20 - 40 % [employer] Work Phone: MCH (RBC) [Entitic mass] 27.9 pg 26 - 34 pg [employer] Work Phone: [phone] MCHC 33.2 % 32 - 36 % [employer] Work Phone: [phone] MCV (RBC) [Entitic vol] 84.1 fL 79 - 98 fL [facility] [employer] Work Phone: [phone] Monocytes (Bld) [#/Vol] 0.6 10*3/uL 0 - 0.8 10*3/uL [employer] Work Phone: [phone] Monocytes/100 WBC (Bld) 6.5 % 2 - 10 % S [employer] Work Phone: [phone] Platelet mean volume (Bld) [Entitic vol] 9.1 fL 7.4 - 10.4 fL [employer] Work Phone: [phone] Platelets (Bld) [#/Vol] 335 10*3/uL 140 - 440 10*3/uL [employer] Work Phone: [phone] RBC (Bld) [#/Vol] 3.87 10*6/uL 3.8 - 5.2 10*6/uL [employer] Work Phone: [phone] WBC (Bld) [#/Vol] 9.9 10*3/uL 3.6 - 10.7 10*3/uL [employer] Work Phone: [phone] Test Performed by [employer], [address] , [place] [address] [employer] Work Phone: [phone] MagnesiumOrdered By: Cordelia at [facility] [facility] on 05-21-2019 Interpretation and review of laboratory results Abnormal [employer] Work Phone: [phone] Magnesium [Mass/Vol] 0.6 mg/dL Critically low 1.6 - 2.3 mg/dL [employer] Work Phone: [phone] Comment on above: reran/rechecked/call ed Test Performed by [facility], [address] , [address] Work Phone: [phone] Microalbumin / Creatinine Ur ine RatioOrdered By: Dania Falcon on 05-21-2019 Albumin/Creatinine DL <= 20 mg/L (24H U) [Mass ratio] 208.8 mg/L High 0 - 17 mg/L [employer] Work Phone: Comment on above: Microalbumin concent rations <30 are considered normal, 30-300 are considered microalbuminuria (or risk of diabetic nephropathy), and >300 are considered clinical albuminuria (clinical nephropathy). Diabetes Care,27, Supplement 1, O16-83, 2004 Albumin/Creatinine DL <= 20 mg/L (U) [Ratio] 1364.7 mg/g High 0 - 29.9 mg/g [employer] Work Phone: Creatinine (U) [Mass/Vol] 15.3 mg/dL No Range [employer] Work Phone: [phone] Interpretation and review of laboratory results Abnormal [employer] Work Phone: Test Performed by [facility], [address] [place], [place] [address] [employer] Work Phone: PTH, IntactOrdered By: April sifuentes [employer] on 05-21-2019 Interpretation and review of laboratory results Abnormal [employer] Work Phone: Pth Intact 222.8 pg/mL High 15 - 63 pg/mL [employer] Work Phone: Test Performed by [facility], [address] [place], [place] [address] [facility] Work Phone: Renal Function PanelOrdered By: Dania Falcon on 05-21-2019 Albumin [Mass/Vol] 4.4 g/dL 3.5 - 5 g/dL [facility] Work Phone: Anion gap [Moles/Vol] 11 mmol/L [facility] Work Phone: Calcium [Mass/Vol] 9.3 mg/dL 8.4 - 10. 4 mg/dL [facility] Work Phone: Chloride [Moles/Vol] 101 mmol/L 98 - 10 7 mmol/L [facility] Work Phone: CO2 [Moles/Vol] 23 mmol/L 22 - 30 mmol/L [facility] Work Phone: Creatinine [Mass/Vol] 2.75 mg/dL High 0.52 - 1.25 mg/dL [facility] Work Phone: EGFR IF NonAfrican [place]er 17.8 mL/min >60 [facility] Work Phone: Comment on above: Source- MDRD equatio n with creatinine calibration to IDMS(NKDEP) eGFR not recommended for drug dose adjustment GFR/1.73 sq M.predicted among blacks MDRD (S/P/Bld) [Vol rate/Area] 21.5 mL/min/{1.73_m2} >60 [facility] Work Phone: Glucose [Mass/Vol] 94 mg/dL 70 - 100 mg/dL [facility] Work Phone: Interpretation and review of laboratory results Abnormal [employer] Work Phone: Phosphate [Mass/Vol] 3.9 mg/dL 2.5 - 4 .5 mg/dL [facility] Work Phone: Potassium [Moles/Vol] 4.6 mmol/L 3.5 - 5.1 mmol/L [facility] Work Phone: Sodium [Moles/Vol] 135 mmol/L 135 - 145 mmol/L [facility] Work Phone: Urea nitrogen [Mass/Vol] 23 mg/dL High 7 - 20 mg/dL [facility] Work Phone: Test Performed by [facility], [address] [place] [address] [place] [address] [employer] Work Phone: Vitamin D 25 HydroxyOrdered By: Dania Falcon on 05-21-2019 Interpretation and review of laboratory results Abnormal [employer] Work Phone: Vit D, 25-Hydroxy 28 ng/mL Low 30 - 100 ng/mL [employer] Work Phone: Comment on above: Therapy is based on measurement of Total 25-OHD with the following classification levels: Less than 20 ng/mL: Indicative of Vit D deficiency 20-30 ng/mL: Suggests Vit D insufficiency Optimal: Greater than or equal to 30 ng/mL Test performed by [employer], measuring Total Vitamin D, not individual fractions. Test Performed by [facility], [address] [place], [place] [address] [facility] Work Phone: CBCon 02-02-2019 Erythrocyte distribution width (RBC) [Ratio] 14.9 % High 11.5 - 14.5 % [place] Hematocrit (Bld) [Volume fraction] 31.4 % Low 35 - 47 % [place] Hemoglobin (Bld) [Mass/Vol] 10.7 g/dL Low 11.7 - 16 g/dL [place] Interpretation and review of laboratory results Abnormal [place] MCH (RBC) [Entitic mass] 28.9 pg 26 - 34 pg [place] MCHC (RBC) [Mass/Vol] 34.0 % 32 - 36 % [place], [place] MCV (RBC) [Entitic vol] 85.0 fL 79 - 98 fL [place] Platelet mean volume (Bld) [Entitic vol] 8.8 fL 7.4 - 10.4 fL [place] Platelets (Bld) [#/Vol] 310 10*3/uL 140 - 440 10*3/uL [place] RBC (Bld) [#/Vol] 3.69 10*6/uL Low 3.8 - 5.2 10*6/uL [place] WBC (Bld) [#/Vol] 9.5 10*3/uL 3.6 - 10.7 10*3/uL [place] Test Performed by [facility], [address] , [place], [place] [address] [place] Magnesiumon 02-02-2019 Magnesium [Mass/Vol] 1.7 mg/dL 1.6 - 2 .3 mg/dL [place] Microalbumin / Creatinine Ur ine Ratioon 02-02-2019 Albumin/Creatinine DL <= 20 mg/L (24H U) [Mass ratio] 87.3 mg/L High 0 - 17 mg/L [facility], [place] Comment on above: Microalbumin concent rations <30 are considered normal, 30-300 are considered microalbuminuria (or risk of diabetic nephropathy), and >300 are considered clinical albuminuria (clinical nephropathy). Diabetes Care,27, Supplement 1, M24-83, 2004 Albumin/Creatinine DL <= 20 mg/L (U) [Ratio] 559.6 mg/g High 0 - 29.9 mg/g [facility] Creatinine (U) [Mass/Vol] 15.6 mg/dL No Range [facility] Interpretation and review of laboratory results Abnormal [place] Test Performed by [facility], [address] [place], [place] [id number] [place] [address], [place] Otheron 02-02-2019 Test Performed by [facility], [address] , [place], [place] [address] [place] PTH, Intacton 02-02-2019 Interpretation and review of laboratory results Abnormal [place] Pth Intact 207.9 pg/mL High 15 - 63 pg/mL [facility] Test Performed by [facility], [address] [place], [place] [address] [facility], [place] Renal Function Panelon 02-02 Albumin [Mass/Vol] 4.4 g/dL 3.5 - 5 g/dL [facility], [place] Anion gap [Moles/Vol] 12 mmol/L [facility], [place] Calcium [Mass/Vol] 10.5 mg/dL High 8.4 - 10. 4 mg/dL [facility] Chloride [Moles/Vol] 103 mmol/L 98 - 10 7 mmol/L [facility] CO2 [Moles/Vol] 24 mmol/L 22 - 30 mmol/L [facility] Creatinine [Mass/Vol] 2.76 mg/dL High 0.52 - 1.25 mg/dL [facility] EGFR IF NonAfrican [place] 17.7 mL/min >60 [facility] Comment on above: Source- MDRD equatio n with creatinine calibration to IDMS(NKDEP) eGFR not recommended for drug dose adjustment GFR/1.73 sq M predicted among blacks MDRD (S/P/Bld) [Vol rate/Area] 21.5 mL/min/{1.73_m2} >60 [place] Glucose [Mass/Vol] 84 mg/dL 70 - 100 mg/dL [place] Interpretation and review of laboratory results Abnormal [place] Phosphate [Mass/Vol] 4.4 mg/dL 2.5 - 4 .5 mg/dL [place] Potassium [Moles/Vol] 4.8 mmol/L 3.5 - 5.1 mmol/L [place] Sodium [Moles/Vol] 139 mmol/L 135 - 145 mmol/L [place] Urea nitrogen [Mass/Vol] 27 mg/dL High 7 - 20 mg/dL [place] Vitamin D 25 Hydroxyon 02-02 Vit D, 25-Hydroxy 40 ng/mL 30 - 100 ng/mL [place] Comment on above: Therapy is based on measurement of Total 25-OHD with the following classification levels: Less than 20 ng/mL: Indicative of Vit D deficiency 20-30 ng/mL: Suggests Vit D insufficiency Optimal: Greater than or equal to 30 ng/mL Test performed by [employer], measuring Total Vitamin D, not individual fractions. Test Performed by [place] [facility], [address] [place], [place] [address] [place] Renal Function Panelon 01-02 Albumin [Mass/Vol] 4.3 g/dL 3.5 - 5 g/dL [place] Anion gap [Moles/Vol] 11 mmol/L [place] Calcium [Mass/Vol] 10.6 mg/dL High 8.4 - 10. 4 mg/dL [place] Chloride [Moles/Vol] 103 mmol/L 98 - 10 7 mmol/L [place] CO2 [Moles/Vol] 23 mmol/L 22 - 30 mmol/L [place] Creatinine [Mass/Vol] 2.97 mg/dL High 0.52 - 1.25 mg/dL [place] EGFR IF NonAfrican [place] 16.3 mL/min >60 [place] Comment on above: Source- MDRD equatio n with creatinine calibration to IDMS(NKDEP) eGFR not recommended for drug dose adjustment GFR/1.73 sq M predicted among blacks MDRD (S/P/Bld) [Vol rate/Area] 19.7 mL/min/{1.73_m2} >60 [place] Glucose [Mass/Vol] 88 mg/dL 70 - 100 mg/dL [place] Interpretation and review of laboratory results Abnormal [place] Phosphate [Mass/Vol] 3.5 mg/dL 2.5 - 4 .5 mg/dL [place] Potassium [Moles/Vol] 4.9 mmol/L 3.5 - 5.1 mmol/L [place] Sodium [Moles/Vol] 138 mmol/L 135 - 145 mmol/L [place] Urea nitrogen [Mass/Vol] 31 mg/dL High 7 - 20 mg/dL [place] Test Performed by [facility], [address] [place], [place] [address] , [address] Basic Metabolic Panelon 11-23 Anion gap [Moles/Vol] 10 mmol/L [place] Calcium [Mass/Vol] 11.4 mg/dL High 8.4 - 10. 4 mg/dL [place] Chloride [Moles/Vol] 105 mmol/L 98 - 10 7 mmol/L [place] CO2 [Moles/Vol] 23 mmol/L 22 - 30 mmol/L [place] Creatinine [Mass/Vol] 3.76 mg/dL High 0.52 - 1.25 mg/dL [place] EGFR IF NonAfrican [place] 12.4 mL/min >60 [place] Comment on above: Source- MDRD equatio n with creatinine calibration to IDMS(NKDEP) eGFR not recommended for drug dose adjustment GFR/1.73 sq M predicted among blacks MDRD (S/P/Bld) [Vol rate/Area] 15.0 mL/min/{1.73_m2} >60 [place] Glucose [Mass/Vol] 110 mg/dL High 70 - 100 mg/dL [place] Interpretation and review of laboratory results Abnormal [place] Potassium [Moles/Vol] 4.4 mmol/L 3.5 - 5.1 mmol/L [place] Sodium [Moles/Vol] 138 mmol/L 135 - 145 mmol/L [place] Urea nitrogen [Mass/Vol] 27 mg/dL High 7 - 20 mg/dL [place] Abdomen Pelvis Wo Contras ton 12-10-2018 Patient Name: CATARINA BOYER ---CT--- Exam Date/Time 12/10/2018 21:34:[address] Abdomen/Pelvis (No PO, No IV) Ordering Physician DIMA BROWN Accession Number [id number] CPT4 Codes 32495 (CT Abdomen/Pelvis (No PO, No IV)) Reason [...] JEFFREY Transcribed Date and Time: 12/10/2018 10:18 [place], [facility] Incoming Radiology Results From [facility] - 12/10/2018 10:18 PM EDT Patient Name: CATARINA BOYER ---CT--- Exam Date/Time 12/10/2018 21:34:[address] Abdomen/Pelvis (No PO, No IV) Ordering Physician DIMA BROWN Accession Number [id number] CPT4 Codes 55144 (CT Abdomen/Pelvis (No PO, No IV)) Reason [...] JEFFREY Transcribed Date and Time: 12/10/2018 10:18 [place] Hemogram (CBC) w/Auto Diffon 12-10-2018 Absolute Baso # 0.1 10*3/uL 0 - 0.2 10*3/uL [place] Absolute Neut # 5.7 10*3/uL 1.8 - 7 10*3/uL [place] Basophils/100 WBC (Bld) 0.9 % 0 - 2 % [place] Eosinophils (Bld) [#/Vol] 0.1 10*3/uL 0 - 0.5 10*3/uL [place] Eosinophils/100 WBC (Bld) 1.4 % 1 - 6 % [place] Erythrocyte distribution width (RBC) [Ratio] 14.5 % 11.5 - 14.5 % [place] Granulocytes/100 WBC (Bld) 63.7 % 40 - 80 % [place] Hematocrit (Bld) [Volume fraction] 34.5 % Low 35 - 47 % [place] Hemoglobin (Bld) [Mass/Vol] 11.5 g/dL Low 11.7 - 16 g/dL [place] Interpretation and review of laboratory results Abnormal [place] Lymphocytes (Bld) [#/Vol] 2.3 10*3/uL 1 - 4.3 10*3/uL [place] Lymphocytes/100 WBC (Bld) 26.3 % 20 - 40 % [place] MCH (RBC) [Entitic mass] 27.9 pg 26 - 34 pg [place] MCHC (RBC) [Mass/Vol] 33.3 % 32 - 36 % [place] MCV (RBC) [Entitic vol] 83.8 fL 79 - 98 fL [place], [place] Monocytes (Bld) [#/Vol] 0.7 10*3/uL 0 - 0.8 10*3/uL [place] Monocytes/100 WBC (Bld) 7.7 % 2 - 10 % [place] Platelet mean volume (Bld) [Entitic vol] 7.9 fL 7.4 - 10.4 fL [place] Platelets (Bld) [#/Vol] 368 10*3/uL 140 - 440 10*3/uL [place] RBC (Bld) [#/Vol] 4.11 10*6/uL 3.8 - 5.2 10*6/uL [place] WBC (Bld) [#/Vol] 8.9 10*3/uL 3.6 - 10.7 10*3/uL [place] Test Performed by [facility], [address], [place], [place] [id number] [place] [address] Hepatic Function Panelon Albumin [Mass/Vol] 4.5 g/dL 3.5 - 5 g/dL [place] ALP [Catalytic activity/Vol] 56 U/L 38 - 126 U/L [place] ALT [Catalytic activity/Vol] 21 U/L 13 - 69 U/L [place] AST [Catalytic activity/Vol] 19 U/L 15 - 46 U/L [place] Bilirubin Ql (U) 0.6 mg/dL 0.2 - 1.3 mg/dL [place] Bilirubin.direct [Mass/Vol] 0.0 mg/dL 0 - 0.3 mg/dL [place] Protein [Mass/Vol] 7.9 g/dL 6.3 - 8.2 g/dL [place] Lipaseon 12-10-2018 Lipase [Catalytic activity/Vol] 116 U/L 23 - 300 U/L [place] Otheron 12-10-2018 Test Performed by [facility], [address], [place], [place] [address] [place] Urinalysison 12-10-2018 Appearance (U) Clear [place] Comment on above: Reference Range: Sergio ar Bacteria, UA Few /[HPF] [place], [place] Comment on above: Reference Range: Neg ative Bilirubin Urine Negative mg/dL [place], [place] Comment on above: Reference Range: Neg ative Color (U) Light-Yellow [place], [place] Comment on above: Reference Range: Lt. Yellow Glucose, Ur Normal mg/dL [place] Comment on above: Reference Range: Nor mal (<70) Ketones Ql (U) Negative mg/dL [place], [place] Comment on above: Reference Range: Neg ative LEUKOCYTES, UA Negative [place]/uL [place] Comment on above: Reference Range: Neg ative Mucous Threads Few /[LPF] [place] Comment on above: Reference Range: Neg ative Nitrite, Urine Negative [place] Comment on above: Reference Range: Neg ative Occult Blood,Urine Negative mg/dL [place] Comment on above: Reference Range: Neg ative pH (U) 6.0 [pH] [place] Protein (U) [Mass/Vol] 10 mg/dL [place] Comment on above: Reference Range: Neg ative RBC (U) [#/Vol] 0-2 /[HPF] [facility] [place], [place] Comment on above: Reference Range: 0-2 Specific [place], Urine <1.005 [place], [place] Squam Epithel, UA 0-2 /[HPF] [place], [place] Comment on above: Reference Range: 3-5 Urobilinogen, Urine Normal mg/dL [place] Comment on above: Reference Range: Nor mal (0-1) WBC, UA 0-2 /[HPF] [place] Comment on above: Reference Range: 0-5 Test Performed by [facility], [address] [place], [place] [id number] [place] [address] Comprehensive Panelon 2018 ALP [Catalytic activity/Vol] 53 U/L Normal 45-117 [facility] Comment on above: Performed By: #### P 14 #### [address] [address] Bilirubin [Mass/Vol] 0.6 mg/dL Normal 0.2-1.0 [facility] Comment on above: Performed By: #### P 14 #### [address] [address] Creatinine [Mass/Vol] 3.06 mg/dL High 0.51-0.95 [facility] Comment on above: Performed By: #### P 14 #### [facility] [address] [place], [place] [address] Protein [Mass/Vol] 7.4 g/dL Normal 6.4-8.2 [facility] Comment on above: Performed By: #### P 14 #### [facility] [address] [place], [place] [address] ALT [Catalytic activity/Vol] 16 U/L Normal 12-78 [facility] Comment on above: Performed By: #### P 14 #### [facility] [address] [place], [place] [address] AST [Catalytic activity/Vol] 10 U/L Low 15-37 [facility] Comment on above: Performed By: #### P 14 #### [facility] [address] [place], [place] [address] Albumin [Mass/Vol] 3.7 g/dL Normal 3.4-5.0 [facility] Comment on above: Performed By: #### P 14 #### [facility] [address] [place], [place] [address] Anion gap [Moles/Vol] 11 mmol/L Normal 8-16 [facility] Comment on above: Performed By: #### P 14 #### [facility] [address] [place], [place] [address] Calcium [Mass/Vol] 9.9 mg/dL Normal 8.5-10.1 [facility] Comment on above: Performed By: #### P 14 #### [facility] [address] [place], [place] [address] CO2 [Moles/Vol] 22 mmol/L Normal 21-32 [facility] Comment on above: Performed By: #### P 14 #### [facility] [address] [place], [place] [address] Glucose [Mass/Vol] 96 mg/dL Normal 70-99 [facility] Comment on above: Performed By: #### P 14 #### [facility] [address] [place], [place] [address] Urea nitrogen [Mass/Vol] 24 mg/dL High 7-18 [facility] Comment on above: Performed By: #### P 14 #### [facility] [address] [place], [place] [address] Chloride [Moles/Vol] 108 mmol/L High 98-107 [facility] Comment on above: Performed By: #### P 14 #### [facility] [address] [place], [place] [address] Potassium [Moles/Vol] 4.6 mmol/L Normal 3.5-5.1 [facility] Comment on above: Performed By: #### P 14 #### [facility] [address] [place], [place] [address] Sodium [Moles/Vol] 136 mmol/L Normal 136-145 [facility] Comment on above: Performed By: #### P 14 #### [facility] [address] [place] [address] Hemogramon 12-07-2018 Erythrocyte distribution width (RBC) [Ratio] 13.9 % Normal 11.7-14.4 [facility] Comment on above: Performed By: #### C BC1 #### [facility] [address] [place] [address] Hematocrit (Bld) [Volume fraction] 33.5 % Low 34.1-44.9 [facility] Comment on above: Performed By: #### C BC1 #### [facility] [address] [place] [address] Hemoglobin (Bld) [Mass/Vol] 10.6 g/dL Low 11.2-15.7 [facility] Comment on above: Performed By: #### C BC1 #### [facility] [address] [place] [address] MCH (RBC) [Entitic mass] 27.7 pg Normal 25.6-32.2 [facility] Comment on above: Performed By: #### C BC1 #### [facility] [address] [place] [address] MCHC (RBC) [Mass/Vol] 31.6 % Normal 31.6-34.8 [facility] Comment on above: Performed By: #### C BC1 #### [facility] [address] [place] [address] MCV (RBC) [Entitic vol] 87.7 fL Normal 79.4-94.[address] [facility] Comment on above: Performed By: #### C BC1 #### [facility] [address] [place] [address] Platelet mean volume (Bld) [Entitic vol] 11.0 fL Normal 9.4-12.3 [facility] Comment on above: Performed By: #### C BC1 #### [facility] [address] [place] [id number] Platelets (Bld) [#/Vol] 314 thou/cmm Normal 182-369 [facility] Comment on above: Performed By: #### C BC1 #### [facility] [address] [place] [address] RBC (Bld) [#/Vol] 3.82 mil/cmm Low 3.93-5.22 [facility] Comment on above: Performed By: #### C BC1 #### [facility] [address] [place] [address] RDW SD 44.3 fl Normal 36.4-46.3 [facility] Comment on above: Performed By: #### C BC1 #### [facility] [address] [place] [address] WBC (Bld) [#/Vol] 13.86 thou/cmm High 3.98-10.04 [facility] Comment on above: Performed By: #### C BC1 #### [facility] [address] [place] [id number] Lipase Bloodon 12-07-2018 Lipase Blood 165 U/L Normal 73-393 [facility] Comment on above: Performed By: #### L IP #### [place] [address] MDRD GFRon 12-07-2018 GFR/1.73 sq M predicted among non-blacks MDRD (S/P/Bld) [Vol rate/Area] 15.74 mL/min/{1.73_m2} Normal >60mL/min/1. 73m2 [facility] Comment on above: Result Comment: If t he patient is , multiply the result by 1.210. Performed By: #### G FR #### [facility] [address] [place] [address] Urinalysis Routineon 019 Bacteria LM.HPF (Urine sed) [#/Area] NONE Normal None [facility] Comment on above: Performed By: #### P 14 #### [facility] [address] [place], [place] [address] Ep Cells Urine 0.5 /hpf Normal 0.0-5.0 [facility] Comment on above: Performed By: #### P 14 #### [facility] [address] [place] [address] Hyaline Cast 1.4 /lpf High 0.0-1.0 [facility] Comment on above: Performed By: #### P 14 #### [facility] [address] [place] [address] RBC LM.HPF (Urine sed) [#/Area] 3.9 /[HPF] Normal 0.0-5.0 [facility] Comment on above: Performed By: #### P 14 #### [facility] [address] [place] [address] WBC LM.HPF (Urine sed) [#/Area] 0.8 /[HPF] Normal 0.0-5.0 [facility] Comment on above: Performed By: #### P 14 #### [facility] [address] [place] [address] Appearance (U) CLEAR Normal [facility] Comment on above: Performed By: #### P 14 #### [facility] [address] [place] [address] Bilirubin (U) [Mass/Vol] Negative Normal Negative [facility] Comment on above: Performed By: #### P 14 #### [facility] [address] [place] [address] Color (U) YELLOW Normal [facility] Comment on above: Performed By: #### P 14 #### [facility] [address] [place] [address] Glucose Ql (U) Negative Normal Negative [facility] Comment on above: Performed By: #### P 14 #### [facility] [address] [place] [address] Hemoglobin,Urine Negative Normal Negative [facility] Comment on above: Performed By: #### P 14 #### [facility] [address] [place] [address] Ketone Urine Negative Normal Negative [facility] Comment on above: Performed By: #### P 14 #### [facility] [address] [place] [address] Leukocytes Esterase Negative Normal Negative [facility] Comment on above: Performed By: #### P 14 #### [facility] [address] [place], [place] [address] Nitrites Urine Negative Normal Negative [facility] Comment on above: Performed By: #### P 14 #### [facility] [address] [place], [place] [address] pH (U) 6.0 [pH] Normal 5.0-8.0 [facility] Comment on above: Performed By: #### P 14 #### [facility] [address] [place], [place] [address] Protein (U) [Mass/Vol] 100 mg/dL Abnormal Negative [facility] Comment on above: Performed By: #### P 14 #### [facility] [address] [place] [address] Specific [place], Ur 1.008 Normal 1.005-1.030 [facility] Comment on above: Performed By: #### P 14 #### [facility] [address] [place] [address] Urobilinogen,Ur 0.2 EU/dL Normal 0.2-1.0 [facility] Comment on above: Performed By: #### P 14 #### [facility] [address] [place] [address] Comprehensive Panelon 2018 ALP [Catalytic activity/Vol] 58 U/L Normal 45-117 [facility] Comment on above: Performed By: #### P 14 #### [facility] [address] [place], [place] [address] Bilirubin [Mass/Vol] 0.3 mg/dL Normal 0.2-1.0 [facility] Comment on above: Performed By: #### P 14 #### [facility] [address] [place], [place] [address] Protein [Mass/Vol] 7.5 g/dL Normal 6.4-8.2 [facility] Comment on above: Performed By: #### P 14 #### [facility] [address] [place] [address] ALT [Catalytic activity/Vol] 18 U/L Normal 12-78 [facility] Comment on above: Performed By: #### P 14 #### [facility] [address] [place], [place] [address] AST [Catalytic activity/Vol] 10 U/L Low 15-37 [facility] Comment on above: Performed By: #### P 14 #### [facility] [address] [place], [place] [address] Creatinine [Mass/Vol] 3.77 mg/dL High 0.51-0.95 [facility] Comment on above: Performed By: #### P 14 #### [facility] [address] [place], [place] [address] Albumin [Mass/Vol] 3.5 g/dL Normal 3.4-5.0 [facility] Comment on above: Performed By: #### P 14 #### [facility] [address] [place], [place] [address] Anion gap [Moles/Vol] 11 mmol/L Normal 8-16 [facility] Comment on above: Performed By: #### P 14 #### [facility] [address] [place], [place] [address] Calcium [Mass/Vol] 10.9 mg/dL High 8.5-10.1 [facility] Comment on above: Performed By: #### P 14 #### [facility] [address] [place], [place] [address] CO2 [Moles/Vol] 23 mmol/L Normal 21-32 [facility] Comment on above: Performed By: #### P 14 #### [facility] [address] [place], [place] [address] Glucose [Mass/Vol] 111 mg/dL High 70-99 [facility] Comment on above: Performed By: #### P 14 #### [facility] [address] [place], [place] [address] Urea nitrogen [Mass/Vol] 34 mg/dL High 7-18 [facility] Comment on above: Performed By: #### P 14 #### [facility] [address] [place], [place] [address] Chloride [Moles/Vol] 106 mmol/L Normal 98-107 [facility] Comment on above: Performed By: #### P 14 #### [facility] [address] [place] [address] Potassium [Moles/Vol] 4.2 mmol/L Normal 3.5-5.1 [facility] Comment on above: Performed By: #### P 14 #### [facility] [address] [place] [address] Sodium [Moles/Vol] 136 mmol/L Normal 136-145 [facility] Comment on above: Performed By: #### P 14 #### [facility] [address] [place] [address] Hemogram/Diffon 10-20-2018 Abs Immature Grans 0.08 thou/cmm High 0.00-0.05 [facility] Comment on above: Performed By: #### C BCD1 #### [facility] [address] [place] [address] Abs Neut (ANC) 8.15 thou/cmm High 1.56-6.13 [facility] Comment on above: Performed By: #### C BCD1 #### [facility] [address] [place] [address] Abs. Baso 0.06 thou/cmm Normal 0.01-0.08 [facility] Comment on above: Performed By: #### C BCD1 #### [facility] [address] [place] [address] Abs. [place] 0.94 thou/cmm High 0.27-0.70 [facility] Comment on above: Performed By: #### C BCD1 #### [facility] [address] [place] [address] Basophils/100 WBC (Bld) 0.5 % Normal [facility] Comment on above: Performed By: #### C BCD1 #### [facility] [address] [place] [address] Eosinophils (Bld) [#/Vol] 0.16 thou/cmm Normal 0.00-0.31 [facility] Comment on above: Performed By: #### C BCD1 #### [facility] [address] [place] [address] Eosinophils/100 WBC (Bld) 1.3 % Normal [facility] Comment on above: Performed By: #### C BCD1 #### [facility] [address] [place] [address] Erythrocyte distribution width (RBC) [Ratio] 12.9 % Normal 11.7-14.4 [facility] Comment on above: Performed By: #### C BCD1 #### [facility] [address] [place] [address] Hematocrit (Bld) [Volume fraction] 31.2 % Low 34.1-44.9 [facility] Comment on above: Performed By: #### C BCD1 #### [facility] [address] [place] [address] Hemoglobin (Bld) [Mass/Vol] 9.9 g/dL Low 11.2-15.7 [facility] Comment on above: Performed By: #### C BCD1 #### [facility] [address] [place] [address] Immature Grans 0.70 % Normal [facility] Comment on above: Performed By: #### C BCD1 #### [facility] [address] [place] [address] Lymphocytes (Bld) [#/Vol] 2.68 thou/cmm Normal 1.18-3.74 [facility] Comment on above: Performed By: #### C BCD1 #### [facility] [address] [place] [address] Lymphocytes/100 WBC (Bld) 22.2 % Normal [facility] Comment on above: Performed By: #### C BCD1 #### [facility] [address] [place] [address] MCH (RBC) [Entitic mass] 27.3 pg Normal 25.6-32.2 [facility] Comment on above: Performed By: #### C BCD1 #### [facility] [address] [place] [address] MCHC (RBC) [Mass/Vol] 31.7 % Normal 31.6-34.8 [facility] Comment on above: Performed By: #### C BCD1 #### [facility] [address] [place] [address] MCV (RBC) [Entitic vol] 86.2 fL Normal 79.4-94.[address] [facility] Comment on above: Performed By: #### C BCD1 #### [facility] [address] [place] [address] Monocytes/100 WBC (Bld) 7.8 % Normal [facility] Comment on above: Performed By: #### C BCD1 #### [facility] [address] [place] [address] Platelet mean volume (Bld) [Entitic vol] 10.8 fL Normal 9.4-12.3 [facility] Comment on above: Performed By: #### C BCD1 #### [facility] [address] [place] [address] Platelets (Bld) [#/Vol] 404 thou/cmm High 182-369 [facility] Comment on above: Performed By: #### C BCD1 #### [facility] [address] [place] [address] RBC (Bld) [#/Vol] 3.62 mil/cmm Low 3.93-5.22 [facility] Comment on above: Performed By: #### C BCD1 #### [facility] [address] [place] [address] RDW SD 40.2 fl Normal 36.4-46.3 [facility] Comment on above: Performed By: #### C BCD1 #### [facility] [address] [place] [address] Seg Neutrophil 67.5 % Normal [facility] Comment on above: Performed By: #### C BCD1 #### [facility] [address] [place] [address] WBC (Bld) [#/Vol] 12.08 thou/cmm High 3.98-10.04 [facility] Comment on above: Performed By: #### C BCD1 #### [facility] [address] [place] [address] Lactic Acidon 10-20-2018 Lactate [Moles/Vol] 0.9 mmol/L Normal 0.5-2.2 [facility] Comment on above: Performed By: #### E DLAG #### [facility] [address] [place] [address] Lipase Bloodon 10-20-2018 Lipase Blood 233 U/L Normal 73-393 [facility] Comment on above: Performed By: #### L IP #### [facility] [address] [place] [address] MDRD GFRon 10-20-2018 GFR/1.73 sq M predicted among non-blacks MDRD (S/P/Bld) [Vol rate/Area] 12.38 mL/min/{1.73_m2} Normal >60mL/min/1. 73m2 [facility] Comment on above: Result Comment: If t he patient is , multiply the result by 1.210. Performed By: #### G FR #### [place] [address] Urinalysis Routineon 019 Bacteria LM.HPF (Urine sed) [#/Area] NONE Normal None [facility] Comment on above: Performed By: #### U RIN2 #### [place] [address] Ep Cells Urine 0.8 /hpf Normal 0.0-5.0 [facility] Comment on above: Performed By: #### U RIN2 #### [place] [address] Hyaline Cast 0.0 /lpf Normal 0.0-1.0 [facility] Comment on above: Performed By: #### U RIN2 #### [place] [address] RBC LM.HPF (Urine sed) [#/Area] 1.6 /[HPF] Normal 0.0-5.0 [facility] Comment on above: Performed By: #### U RIN2 #### [place] [address] WBC LM.HPF (Urine sed) [#/Area] 0.3 /[HPF] Normal 0.0-5.0 [facility] Comment on above: Performed By: #### U RIN2 #### [facility] [address] [place] [address] Appearance (U) CLEAR Normal [facility] Comment on above: Performed By: #### U RIN2 #### [facility] [address] [place] [address] Bilirubin (U) [Mass/Vol] Negative Normal Negative [facility] Comment on above: Performed By: #### U RIN2 #### [facility] [address] [place] [address] Color (U) YELLOW Normal [facility] Comment on above: Performed By: #### U RIN2 #### [facility] [address] [place] [address] Glucose Ql (U) Negative Normal Negative [facility] Comment on above: Performed By: #### U RIN2 #### [facility] [address] [place] [address] Hemoglobin,Urine Negative Normal Negative [facility] Comment on above: Performed By: #### U RIN2 #### [facility] [address] [place] [address] Ketone Urine Negative Normal Negative [facility] Comment on above: Performed By: #### U RIN2 #### [facility] [address] [place] [address] Leukocytes Esterase Negative Normal Negative [facility] Comment on above: Performed By: #### U RIN2 #### [facility] [address] [place] [address] Nitrites Urine Negative Normal Negative [facility] Comment on above: Performed By: #### U RIN2 #### [facility] [address] [place] [address] pH (U) 7.5 [pH] Normal 5.0-8.0 [facility] Comment on above: Performed By: #### U RIN2 #### [facility] [address] [place] [address] Protein (U) [Mass/Vol] 30 mg/dL Abnormal Negative [facility] Comment on above: Performed By: #### U RIN2 #### [facility] [address] [place], [place] [address] Specific [place], Ur 1.007 Normal 1.005-1.030 [facility] Comment on above: Performed By: #### U RIN2 #### [facility] [address] [place], [place] [address] Urobilinogen,Ur 0.2 EU/dL Normal 0.2-1.0 [facility] Comment on above: Performed By: #### U RIN2 #### [facility] [address] [place], [place] [address] Vital Signs Date Time Vital Sign Value Performing Clinician Facility 09-28-2024 10:37-0400 Body height 162.6 cm ZANDRA Castelan MD Work Phone: [facility] 09-28-2024 10:37-0400 Body mass index (BMI) [Ratio] 35.19 kg/m2 ZANDRA Castelan MD Work Phone: [facility] 09-28-2024 10:37-0400 Body weight 92.99 kg ZANDRA Castelan MD Work Phone: [facility] 09-28-2024 10:37-0400 Diastolic blood pressure 78 mm[Hg] ZANDRA Castelan MD Work Phone: [facility] 09-28-2024 10:37-0400 Heart rate 77 /min ZANDRA Castelan MD Work Phone: [facility] 09-28-2024 10:37-0400 Respiratory rate 20 /min ZANDRA Castelan MD Work Phone: [facility] 09-28-2024 10:37-0400 Systolic blood pressure 148 mm[Hg] ZANDRA Castelan MD Work Phone: [facility] 11-26-2023 18:17-0400 Diastolic Blood Pressure Non-Invasive 74 mm[Hg] REJI WELCH DO [facility] 11-26-2023 18:17-0400 Heart rate 64 /min REJI WELCH DO [facility] 11-26-2023 18:17-0400 Respiratory rate 16 /min REJI WELCH DO [facility] 11-26-2023 18:17-0400 Systolic Blood Pressure Non-Invasive 157 mm[Hg] REJI WELCH DO [facility] 11-26-2023 17:03-0400 Body temperature 97.88 [degF] REJI WELCH DO [facility] 11-26-2023 17:03-0400 Diastolic Blood Pressure Non-Invasive 79 mm[Hg] REJI WELCH DO [facility] 11-26-2023 17:03-0400 Heart rate 83 /min REJI WELCH DO [facility] 11-26-2023 17:03-0400 Respiratory rate 16 /min REJI WELCH DO [facility] 11-26-2023 17:03-0400 Systolic Blood Pressure Non-Invasive 160 mm[Hg] REJI WELCH DO [facility] 09-29-2022 11:57-0400 Body temperature 97 [degF] Imanvanessa Argueta DO Work Phone: [facility] [employer] 09-29-2022 11:57-0400 Diastolic blood pressure 67 mm[Hg] Iman Quintananett DO Work Phone: [employer] 09-29-2022 11:57-0400 Heart rate 66 /min Imanrichard Argueta DO Work Phone: [employer] [employer] 09-29-2022 11:57-0400 Respiratory rate 16 /min Imanvanessa Argueta DO Work Phone: [facility] [employer] 09-29-2022 11:57-0400 SaO2% (BldA) [Mass fraction] 95 % Iman Argueta DO Work Phone: [facility] [employer] 09-29-2022 11:57-0400 Systolic blood pressure 134 mm[Hg] Iman Argueta DO Work Phone: [facility] [employer] 09-29-2022 08:42-0400 Body height 160 cm Iman Argueta DO Work Phone: [facility] [employer] 09-29-2022 06:30-0400 Body mass index (BMI) [Ratio] 40.62 kg/m2 Iman Argueta DO Work Phone: [facility] [employer] 09-29-2022 06:30-0400 Body weight 104.01 kg Iman Argueta DO Work Phone: [facility] [employer] 01-20-2022 17:00-0400 Diastolic blood pressure 77 mm[Hg] Saloni Hussein MD Work Phone: [facility] 01-20-2022 17:00-0400 Heart rate 69 /min Saloni Hussein MD Work Phone: [facility] 01-20-2022 17:00-0400 Respiratory rate 16 /min Saloni Hussein MD Work Phone: [facility] 01-20-2022 17:00-0400 SaO2% (BldA) [Mass fraction] 93 % Saloni Hussein MD Work Phone: [facility] 01-20-2022 17:00-0400 Systolic blood pressure 136 mm[Hg] Saloni Hussein MD Work Phone: [facility] 01-20-2022 16:15-0400 Body temperature 97 [degF] Saloni Hussein MD Work Phone: [facility] 01-13-2022 13:42-0400 Body temperature 96.91 [degF] Saloni Hussein MD Work Phone: [facility] 01-13-2022 13:42-0400 Diastolic blood pressure 68 mm[Hg] Saloni Hussein MD Work Phone: [facility] 01-13-2022 13:42-0400 Heart rate 73 /min Saloni Hussein MD Work Phone: [facility] 01-13-2022 13:42-0400 SaO2% (BldA) [Mass fraction] 96 % Saloni Hussein MD Work Phone: [facility] 01-13-2022 13:42-0400 Systolic blood pressure 130 mm[Hg] Saloni Hussein MD Work Phone: [facility] 01-13-2022 13:30-0400 Body height 160 cm Saloni Hussein MD Work Phone: [facility] 01-13-2022 13:30-0400 Body mass index (BMI) [Ratio] 41.66 kg/m2 Saloni Hussein MD Work Phone: [facility] 01-13-2022 13:30-0400 Body weight 106.69 kg Saloni Hussein MD Work Phone: [facility] 10-01-2021 19:06-0400 Diastolic blood pressure 75 mm[Hg] Angel Ch MD Work Phone: [facility] 10-01-2021 19:06-0400 Heart rate 60 /min Angel Ch MD Work Phone: [facility] 10-01-2021 19:06-0400 Respiratory rate 16 /min Angel Ch MD Work Phone: [facility] 10-01-2021 19:06-0400 SaO2% (BldA) [Mass fraction] 95 % Angel Ch MD Work Phone: [facility] 10-01-2021 19:06-0400 Systolic blood pressure 141 mm[Hg] Angel Ch MD Work Phone: [facility] 10-01-2021 15:07-0400 Body height 160 cm Angel Ch MD Work Phone: [facility] 10-01-2021 15:07-0400 Body mass index (BMI) [Ratio] 40.74 kg/m2 Angel Ch MD Work Phone: [facility] 10-01-2021 15:07-0400 Body temperature 98.01 [degF] Angel Ch MD Work Phone: [facility] 10-01-2021 15:07-0400 Body weight 104.33 kg Angel Ch MD Work Phone: [facility] 07-21-2021 11:38-0400 Body temperature 98.1 [degF] Tom Nunes MD Work Phone: [facility] 07-21-2021 11:38-0400 Diastolic blood pressure 85 mm[Hg] Tom Nunes MD Work Phone: [facility] 07-21-2021 11:38-0400 Heart rate 67 /min Tom Nunes MD Work Phone: [facility] 07-21-2021 11:38-0400 Respiratory rate 20 /min Tom Nunes MD Work Phone: [facility] 07-21-2021 11:38-0400 SaO2% (BldA) [Mass fraction] 97 % Tom Nunes MD Work Phone: [facility] 07-21-2021 11:38-0400 Systolic blood pressure 143 mm[Hg] Tom Nunes MD Work Phone: [facility] 07-19-2021 23:48-0400 Body height 160 cm Tom Nunes MD Work Phone: [facility] 07-19-2021 23:48-0400 Body mass index (BMI) [Ratio] 39.86 kg/m2 Tom Nunes MD Work Phone: [facility] 07-19-2021 23:48-0400 Body weight 102.06 kg Tom Nunes MD Work Phone: [facility] 12-12-2018 07:32-0400 Body Temperature 97.11 [degF] [facility] [employer] [place] [place] 12-12-2018 07:32-0400 BP Diastolic 73 mm[Hg] [facility] [place] 12-12-2018 07:32-0400 BP Systolic 131 mm[Hg] [facility] [place] 12-12-2018 07:32-0400 Pulse (Heart Rate) 59 /min [facility] [place] 12-12-2018 07:32-0400 Pulse Oximetry 97 % [facility] [place] [facility] [place] 12-12-2018 07:32-0400 Respiratory Rate 20 /min Dima Townsend [facility] [place] [place] 12-10-2018 23:52-0400 BMI (Body Mass Index) 37.02 kg/m2 Dima Townsend [facility] [place], [place] 12-10-2018 23:52-0400 Body weight 94.8 kg Dima Mckeon [facility] , [place] 12-10-2018 23:52-0400 Height 160 cm Dima Mckeon [facility] , [place] Encounters Encounter Date Encounter Type Care Provider Facility Start: 12-25-2024 End: 12-25-2024 ambulatory JAYAPRAKASH R FLOR Facility:[facility] Start: 10-18-2024 End: 10-18-2024 ambulatory JAYAPRAKASH R FLOR Facility:[facility] Start: 10-16-2024 End: 10-16-2024 Orders Only Jasiel Ray MD Work Phone: [facility] Comment on above: Hyperkalemia Start: 10-13-2024 End: 10-13-2024 ambulatory JAYAPRAKASH R FLOR Facility:[facility] Start: 09-28-2024 End: 09-28-2024 Patient encounter procedure H Dima Castelan MD Work Phone: [facility] Comment on above: Stage 5 chronic kidn ey 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 on chronic dialysis (HCC) (Primary Dx) Start: 09-28-2024 End: 09-28-2024 ambulatory Tamera CASTELAN Facility:[facility] Start: 08-09-2024 End: 08-09-2024 ambulatory CAMILLE GOODMAN Facility:[facility] Start: 08-03-2024 End: 08-03-2024 Orders Only Jasiel Ray MD Work Phone: [facility] Comment on above: 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; Secondary hyperparathyroidism of renal origin (HCC) Start: 07-30-2024 End: 07-30-2024 ambulatory CAMILLE GOODMAN Facility:[facility] Start: 05-01-2024 End: 05-01-2024 ambulatory CAMILLE GOODMAN Facility:[facility] Start: 02-17-2024 End: 02-17-2024 [facility] Start: 02-02-2024 End: 02-02-2024 Emergency department patient visit Camille Goodman Facility:[facility] Start: 01-10-2024 End: 01-10-2024 ambulatory CAMILLE GOODMAN Facility:[facility] Start: 11-26-2023 End: 11-26-2023 Emergency department patient visit REJI WELCH DO [facility] Start: 11-16-2023 Chart abstracting Jimi Jimenez RN [facility] Start: 06-17-2023 End: 06-18-2023 [facility] Start: 06-17-2023 End: 06-17-2023 Subsequent hospital visit by physician Camille Goodman MD Work Phone: [facility] US Imaging Comment on above: Abnormal levels of o ther serum enzymes Start: 06-13-2023 Transcribe Orders Camille hartmann MD Work Phone: [facility] Central Scheduling Comment on above: Abnormal levels of o ther serum enzymes (Primary Dx) Start: 09-27-2022 End: 09-29-2022 Evaluation and management of inpatient [facility] Start: 09-27-2022 End: 09-29-2022 Evaluation and management of inpatient Iman Argueta DO Work Phone: [facility] 2E TELEMETRY Comment on above: Hypomagnesemia (Prim jose Dx); Diarrhea, unspecified type; Weakness Start: 03-03-2022 Telephone encounter Chitra jarrell RN Work Phone: [facility] Comment on above: Follow Up Start: 01-20-2022 End: 01-20-2022 ambulatory SALONI HUSSEIN [facility] Start: 01-20-2022 End: 01-20-2022 Subsequent hospital visit by physician Saloni Hussein MD Work Phone: [facility] General Surgery Comment on above: Post-op pain (Primar y Dx) Start: 01-13-2022 ambulatory UNKNOWN PROVIDER [facility] Start: 01-13-2022 Encounter for other preprocedural examination SALONI HUSSEIN [facility] Start: 01-13-2022 End: 01-13-2022 Subsequent hospital visit by physician Saloni Hussein MD Work Phone: [facility] Pre-Admit Testing Comment on above: Arrived Start: 12-14-2021 End: 12-14-2021 Subsequent hospital visit by physician Gloria Solomon APRN - PRESENTATION MANAGER Work Phone: [facility] Vascular Lab Comment on above: Arrived Start: 11-24-2021 End: 11-24-2021 Subsequent hospital visit by physician Gloria Solomon APRN - PRESENTATION MANAGER Work Phone: [facility] Nuclear Medicine Comment on above: Arrived Start: 10-01-2021 End: 10-01-2021 Emergency department patient visit Angel Ch MD Work Phone: [facility] Comment on above: Abdominal pain, epig astric (Primary Dx) Start: 07-19-2021 End: 07-21-2021 Evaluation and management of inpatient Tom Des ANTHONY Work Phone: [facility] TELE[facility] Comment on above: Palpitations (Primar y Dx); Hyperkalemia; Hypomagnesemia Start: 01-30-2020 End: 01-30-2020 Subsequent hospital visit by physician Camille Goodman Work Phone: [facility] Nuclear Medicine Comment on above: Arrived Start: 01-08-2020 End: 01-08-2020 Subsequent hospital visit by physician [facility]ille [facility] Comment on above: Arrived Start: 06-13-2019 End: 06-13-2019 Subsequent hospital visit by physician Dania Falcon Work Phone: [facility] Start: 05-21-2019 End: 05-21-2019 Subsequent hospital visit by physician Dania Falcon MD Work Phone: [facility] Laboratory Start: 02-02-2019 End: 02-02-2019 Subsequent hospital visit by physician Dania Falcon Work Phone: [facility] Laboratory Start: 01-02-2019 End: 01-02-2019 Subsequent hospital visit by physician Dania Falcon Work Phone: [facility] Laboratory Start: 12-10-2018 End: 12-12-2018 Evaluation and management of inpatient Dima Mckeon Work Phone: [facility] Comment on above: Acute diverticulitis [...] multiplex probe tq 12-25 Jose Raul Serna STEEL SAMPLER - PRESENTATION MANAGER Work Phone: Start: 09-27-2022 Ecg routine ecg w/le ast 12 lds trcg only w/o i&r Jose Raul Serna STEEL SAMPLER - PRESENTATION MANAGER Work Phone: Start: 09-27-2022 End: 09-27-2022 Basic metabolic panel calcium total Jose Raul Serna STEEL SAMPLER - PRESENTATION MANAGER Work Phone: Start: 09-27-2022 Acute hepatitis panel T melissa Serna STEEL SAMPLER - PRESENTATION MANAGER Work Phone: Start: 09-27-2022 Complete blood count with white cell differential, automated Jose Raul Serna STEEL SAMPLER - PRESENTATION MANAGER Work Phone: Start: 09-27-2022 Iadna respiratry pro [...] MESENTERIC ARTERY DUPLEX SCAN Gloria Solomon APRN [employer] Work Phone: Start: 11-24-2021 Gastric emptying jovita ging study Gloria Solomon STEEL SAM[employer]ER [employer] Work Phone: Start: 10-02-2021 Lipid 1996 panel [...] RSV Vaccine (1 - 1-dose 75+ series) [facility] Start: 12-28-2028 Screening for malignant neoplasm of colon [facility] Start: 10-14-2027 Diabetes Screening Diabetes Screening [facility] Start: 08-10-2027 Diabetes Screening Diabetes Screening [facility] Start: 2027 Pneumococcal 0-64 years Vaccine (2 of 2 - PPSV23) Pneumococcal 0-64 years Vaccine (2 of 2 - PPSV23) [facility] Start: 10-02-2026 Lipid panel [facility] Start: 11-24-2025 DTaP/Tdap/Td vaccine (2 - Td or Tdap) DTaP/Tdap/Td vaccine (2 - Td or Tdap) [facility] Start: 11-24-2025 DTaP/Tdap/Td vaccine (2 - Td) DTaP/Tdap/Td vaccine (2 - Td) [place] Start: 11-24-2025 DTaP/Tdap/Td Vaccines (2 - Td or Tdap) DTaP/Tdap/Td Vaccines (2 - Td or Tdap) [facility] Start: 11-24-2025 Urine microalbumin profile [facility] Start: 10-13-2025 Complete blood count Hemoglobin/Hematocrit [facility] Start: 10-13-2025 Creatinine measurement Serum Creatinine [facility] Start: 09-29-2025 Diabetes Screening Diabetes Screening [facility] Start: 08-09-2025 Creatinine measurement Serum Creatinine [facility] Start: 07-30-2025 Complete blood count Hemoglobin/Hematocrit [facility] Start: 12-24-2024 Influenza vaccination Influenza Vaccine (Season Ended) [facility] Start: 11-15-2024 Basic metabolic 2000 panel - Serum or Plasma BASIC METABOLIC PANEL Lab Routine Hyperkalemia Expected: 11/15/2024 [facility] Work Phone: Comment on above: Expected: 11/15/2024 Start: 09-28-2024 End: 09-28-2024 Patient encounter procedure 09/28/2024 10:30 AM EDT Office Visit [facility] [address] [place], [place] [id number] Tamera Castelan MD [address] [place], [place] [id number] pd cath consult [facility] Comment on above: pd cath consult Start: 09-02-2024 25-HYDROXY D2+D3 25-HYDROXY D2+D3 Lab Routine Secondary hyperparathyroidism of renal origin (HCC) Expected: 09/02/2024 [facility] Comment on above: Expected: 09/02/2024 Start: 09-02-2024 CBC panel - Blood by Automated count COMPLETE BLOOD COUNT Lab Routine 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 Expected: 09/02/2024 [facility] Work Phone: Comment on above: Expected: 09/02/2024 Start: 09-02-2024 Parathyrin.intact [Mass/volume] in Serum or Plasma PTH INTACT Lab Routine Secondary hyperparathyroidism of renal origin (HCC) Expected: 09/02/2024 [facility] Comment on above: Expected: 09/02/2024 Start: 09-02-2024 Protein/Creatinine [Mass Ratio] in Urine PROTEIN / CREATININE RATIO Lab Routine 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 Expected: 09/02/2024 [facility] Comment on above: Expected: 09/02/2024 Start: 09-02-2024 Renal function 2000 panel - Serum or Plasma RENAL FUNCTION PANEL Lab Routine 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 Expected: 09/02/2024 [facility] Comment on above: Expected: 09/02/2024 Start: 08-03-2024 Patient encounter procedure 08/03/2024 Lab Requisition [facility] [address] [place] [address] Jasiel Ray MD [address] [place] [address] Chronic kidney disease, stage 4 (severe) (HCC) [facility] Comment on above: Chronic kidney disease, stage 4 (severe) (HCC) Start: 12-30-2023 Colonoscopy COLONOSCOPY [facility] Start: 12-30-2023 COLORECTAL CANCER SCREENING COLORECTAL CANCER SCREENING [facility] Start: 12-30-2023 Screening for malignant neoplasm of colon [facility] Start: 12-25-2023 Covid-19 Vaccine () Covid-19 Vaccine () [facility] Start: 12-25-2023 Influenza vaccination [facility] Start: 11-29-2023 Lipid panel Lipid screen [facility] Start: 11-29-2023 Lipid screen Lipid screen [place], [place] Start: 09-28-2023 Thyroid stimulating hormone measurement TSH Level [facility] Start: 12-24-2022 COVID-19 Vaccine ( season) COVID-19 Vaccine () [facility] Start: 12-24-2022 Influenza vaccination [facility] Start: 10-02-2022 Lipid panel Lipids [facility] Start: 10-02-2022 Screening for malignant neoplasm of colon [facility] Start: 07-21-2022 Creatinine measurement Creatinine monitoring [facility] Start: 07-21-2022 Potassium monitoring Potassium monitoring [facility] Start: 2022 DIABETES SCREEN DIABETES SCREEN [facility] Start: 2022 Hepatitis B Vaccine (1 of 3 - Risk 3-dose series) Hepatitis B Vaccine (1 of 3 - Risk 3-dose series) [facility] Start: 2022 RSV Immunization aged 60 or older (1 - 1-dose 60+ series) RSV Immunization aged 60 or older (1 - 1-dose 60+ series) [facility] Start: 2022 RSV Vaccine (1 - 1-dose 60+ series) RSV Vaccine (1 - 1-dose 60+ series) [facility] Start: 01-20-2022 Subsequent hospital visit by physician 01/20/2022 Hospital Encounter General Surgery Saloni Hussein MD [address] [place], [place] [id number] [facility] Surgery Start: 12-24-2021 Influenza vaccination [facility] Start: 12-14-2021 End: 12-14-2021 Patient encounter procedure 12/14/2021 Appointment Vascular Lab Gloria Solomon, KATH - PRESENTATION MANAGER [address] [place] [address] [facility] Start: 11-23-2021 Influenza vaccination Flu vaccine (#1) [facility] Start: 04-25-2021 DEPRESSION ASSESSMENT DEPRESSION ASSESSMENT [facility] Start: 03-04-2021 COVID-19 Vaccine (3 - Booster for Moderna series) COVID-19 Vaccine (3 - Booster for Moderna series) [facility] Start: 02-04-2021 PNEUMOCOCCAL (3 - PCV) PNEUMOCOCCAL (3 - PCV) [facility] Start: 02-04-2021 Pneumococcal 0-64 years Vaccine (2 - PCV) Pneumococcal 0-64 years Vaccine (2 - PCV) [facility] Start: 02-04-2021 Pneumococcal vaccination Pneumococcal Vaccine (3 of 3 - PCV) [facility] Start: 02-04-2021 Pneumococcal Vaccine: 50+ (3 of 3 - PCV) Pneumococcal Vaccine: 50+ (3 of 3 - PCV) [facility] Start: 02-04-2021 Pneumococcal Vaccine: Pediatrics (0 to 5 Years) and At-Risk Patients (6 to 64 Years) (2 - PCV) Pneumococcal Vaccine: Pediatrics (0 to 5 Years) and At-Risk Patients (6 to 64 Years) (2 - PCV) [facility] Start: 02-04-2021 Pneumococcal Vaccine: Pediatrics (0 to 5 Years) and At-Risk Patients (6 to 64 Years) (2 of 2 - PCV) Pneumococcal Vaccine: Pediatrics (0 to 5 Years) and At-Risk Patients (6 to 64 Years) (2 of 2 - PCV) [facility] Start: 11-28-2020 Breast cancer screen Breast cancer screen [place], [place] Start: 11-28-2020 Screening for malignant neoplasm of breast Breast cancer screen [facility] Start: 11-27-2020 COVID-19 VACCINE (3 - Booster for Moderna series) COVID-19 VACCINE (3 - Booster for Moderna series) [facility] Start: 05-21-2020 Creatinine measurement Creatinine monitoring [facility] [place] Start: 05-21-2020 Creatinine monitoring Creatinine monitoring [place], [place] Start: 05-21-2020 Potassium monitoring Potassium monitoring [place], [place] Start: 05-08-2020 Screening for malignant neoplasm of lung Low dose CT lung screening [facility] Start: 02-03-2020 Creatinine monitoring Creatinine monitoring [facility] Work Phone: Start: 02-03-2020 Potassium monitoring Potassium monitoring [facility] Work Phone: Start: 01-03-2020 Creatinine monitoring Creatinine monitoring [facility] , [place] Start: 01-03-2020 Potassium monitoring Potassium monitoring [place], [place] Start: 12-25-2019 Influenza vaccination Flu vaccine (#1) [place] Start: 12-11-2019 Creatinine monitoring Creatinine monitoring [place], [place] Start: 12-11-2019 Potassium monitoring Potassium monitoring [place], [place] Start: 11-29-2019 Lipid panel Lipids [facility] Start: 11-29-2019 Screening for malignant neoplasm of breast Mammogram Screening [facility] Start: 12-24-2018 Influenza vaccination Flu vaccine (#1) [place] Start: 12-23-2015 DTaP/Tdap/Td Vaccines (2 - Td or Tdap) DTaP/Tdap/Td Vaccines (2 - Td or Tdap) [facility] Start: 2012 Colon cancer screen colonoscopy Colon cancer screen colonoscopy [place], [place] Start: 2012 Screening for malignant neoplasm of colon Colon cancer screen colonoscopy [place], [place] Start: 2012 Screening for malignant neoplasm of lung [facility] Start: 2012 Shingles Vaccine (1 of 2) Shingles Vaccine (1 of 2) [facility] Start: 2012 Zoster Vaccines (1 of 2) Zoster Vaccines (1 of 2) [facility] Start: 2007 COLOGUARD (FIT-DNA) COLOGUARD (FIT-DNA) [facility] Start: [address] COLONOGRAPHY [facility] Start: 2007 FECAL OCCULT BLOOD FECAL OCCULT BLOOD [facility] Start: 2007 LIPID SCREEN LIPID SCREEN [facility] Start: 2007 Screening for malignant neoplasm of colon [facility] Start: 2007 SIGMOIDOSCOPY SIGMOIDOSCOPY [facility] Start: 2002 Diabetes screen Diabetes screen [place], [place] Start: 2002 Mammography MAMMOGRAM [facility] Start: 2002 Screening for malignant neoplasm of breast Mammogram [facility] Start: 1997 Diabetes screen Diabetes screen [facility] Start: 1992 HPV TESTING HPV TESTING [facility] Start: 1992 Screening for malignant neoplasm of cervix [facility] Start: 1983 Cervical cancer screen Cervical cancer screen [place], [place] Start: 1983 PAP TESTING PAP TESTING [facility] Start: 1983 Screening for malignant neoplasm of cervix [facility] Start: 1981 Hepatitis A Vaccine (1 of 2 - Risk 2-dose series) Hepatitis A Vaccine (1 of 2 - Risk 2-dose series) [facility] Start: 1981 SHINGRIX VACCINE (1 of 2) SHINGRIX VACCINE (1 of 2) [facility] Start: 1980 Annual PCP Team Chronic Disease Visit Annual PCP Team Chronic Disease Visit [facility] Start: 1980 Anxiety Screening Anxiety Screening [facility] Start: 1980 Depression Screening Depression Screening [facility] Start: 1980 Diabetes mellitus screening Diabetes Screening [facility] Start: 1980 Hepatitis C screening Hepatitis C screen [facility] Start: 1977 HIV screen HIV screen [place] Start: 1977 HIV screening HIV screen [facility] Start: 1974 Depression Screen Depression Screen [facility] Start: 1974 Depression Screening Depression Screening [facility] Start: 1968 Pneumococcal 0-64 years Vaccine (1 of 1 - PPSV23) Pneumococcal 0-64 years Vaccine (1 of 1 - PPSV23) [place], [place] Start: 1967 COVID-19 Vaccine (1) COVID-19 Vaccine (1) [facility] Start: 1963 HEPATITIS A (1 of 2 - Risk 2-dose series) HEPATITIS A (1 of 2 - Risk 2-dose series) [facility] Start: 1963 MMR Vaccines (1 of 1 - Standard series) MMR Vaccines (1 of 1 - Standard series) [facility] Start: 1962 Hepatitis C screen Hepatitis C screen [place], [place] Start: 1962 Hepatitis C screening Hepatitis C screen [facility] Start: 1962 HIV screening HIV Screening [facility] Start: 1962 Screening for malignant neoplasm of colon [facility] Blood glucose - POCT Blood gluco se - POCT Point of Care Testing STAT As Needed until discontinued starting 01/20/2022 [facility] Work Phone: Comment on above: As Needed until discontinued starting CBC W Auto Differential panel - Blood CBC with Auto Differential Lab Routine Daily until discontinued starting 07/20/2021, 2 completed [facility] Work Phone: Comment on above: Daily until discontinued starting 2021, 2 completed Comprehensive Metabolic Panel w/ Reflex to MG Comprehensive Metabolic Panel w/ Reflex to MG Lab Routine Daily until discontinued starting 07/20/2021, 2 completed [facility] Work Phone: Comment on above: Daily until discontinued starting 2021, 2 completed End: 01-20-2022 Creatinine [Mass/volume] in Serum or Plasma Creatinine, serum Lab STAT One Time for 1 Occurrences starting 01/20/2022 until 01/20/2022 [facility] Work Phone: Comment on above: One Time for 1 Occurrences starting 12/25 until 01/20/2022 EKG 12 Lead EKG 12 Lead ECG Routine 07/21/2021 10:05 AM EDT [facility] Work Phone: End: 01-20-2022 INITIATE PACU OXYGEN THERAPY PROTOCOL Initiate PACU Oxygen Therapy Protocol Respiratory Care Routine Continuous until discontinued starting 01/20/2022 [facility] Work Phone: Comment on above: Continuous until discontinued starting 0 01/20/2022 End: 01-20-2022 Intermittent pulse oximetry Pulse Oximetry Spot Check Respiratory Care Routine One Time for 1 Occurrences starting 01/20/2022 until 01/20/2022 [facility] Work Phone: Comment on above: One Time for 1 Occurrences starting 12/25 until 01/20/2022 Magnesium [Mass/volume] in Serum or Plasma Magnesium Lab Routine Daily until discontinued starting 07/20/2021, 2 completed [facility] Work Phone: Comment on above: Daily until discontinued starting 2021, 2 completed Nasal Cannula Oxygen Nasal Cannu la Oxygen Respiratory Care Routine As Needed until discontinued starting 01/20/2022 [facility] Work Phone: Comment on above: As Needed until discontinued starting Nasal Cannula Oxygen Nasal Cannu la Oxygen Respiratory Care Routine As Needed until discontinued starting 01/20/2022 [employer] Work Phone: Comment on above: As Needed until discontinued starting End: 01-30-2020 NM HEPATOBILIARY W/O CCK NM HEPATOBILIARY W/O CCK Imaging Routine Once for 1 Occurrences starting 01/30/2020 until 01/30/2020 [facility] [place] Comment on above: Once for 1 Occurrences starting 01/30/20 20 until 01/30/2020 NM HEPATOBILIARY W/O CCK NM HEPATOBILIARY W/O CCK Imaging Routine 01/30/2020 9:50 AM [facility] oxygen Nonrebreather mask oxygen Respiratory Care Routine As Needed until discontinued starting 01/20/2022 [employer] Work Phone: Comment on above: As Needed until discontinued starting Nonrebreather mask oxygen Nonrebreather mask oxygen Respiratory Care Routine As Needed until discontinued starting 01/20/2022 [employer] Work Phone: Comment on above: As Needed [...] Daily until discontinued starting 07/20/2021, 2 completed [facility] Work Phone: Comment on above: Daily until discontinued starting 2021, 2 completed End: 06-17-2023 [facility] Work Phone: Comment on above: Once for 1 Occurrences starting 06/17/19 until 06/17/2023 Immunizations Immunization Date Immunization Notes Care Provider Kya miguel 02-15-2023 influenza virus vacc ine, unspecified formulation Jimi Jimenez RN [facility] 02-24-2021 influenza, injectabl e, quadrivalent, preservative free Chitra Grimes RN Work Phone: [facility] Work Phone: 02-24-2021 influenza virus vacc ine, unspecified formulation Iman Argueta DO Work Phone: [facility] 10-02-2020 Moderna SARS-CoV-2 Vaccination Iman Argueta DO Work Phone: [facility] 09-04-2020 Moderna SARS-CoV-2 Vaccination Iman Argueta DO Work Phone: [facility] 02-27-2020 influenza, injectabl e, quadrivalent, preservative free Chitra Grimes RN Work Phone: [facility] Work Phone: 02-05-2020 pneumococcal polysaccharide vaccine, 23 valent Chitra Grimes RN Work Phone: [facility] Work Phone: 04-23-2019 pneumococcal polysaccharide vaccine, 23 valent Chitra Grimes RN Work Phone: [facility] Work Phone: 02-19-2019 pneumococcal polysaccharide vaccine, 23 valent Chitra Grimes RN Work Phone: [facility] Work Phone: 02-13-2019 influenza, injectabl e, quadrivalent, preservative free Chitra Grimes RN Work Phone: [facility] Work Phone: 02-12-2016 influenza, injectabl e, quadrivalent, preservative free Chitra Grimes RN Work Phone: [facility] Work Phone: 11-25-2015 tetanus toxoid, redu nichol diphtheria toxoid, and acellular pertussis vaccine, adsorbed Chitra Grimes RN Work Phone: [facility] Work Phone: Payers Date Payer Category Payer Self-pay 2016 [facility] PPO [id number] 2016 Unknown 2016 Unknown [id number] 1962 Unknown [id number] 1962 Unknown [id number] 1962 Unknown [id number] Unknown [id number] Social History Date Type Detail Facility Start: 10-21-2017 End: 12-10-2018 Tobacco smoking status NHIS Current every day smoker [employer] History of tobacco use Cigarette Smoker [facility] [employer] Start: 12-10-2018 End: 09-28-2024 Cigarettes smoked current (pack per day) - Reported [facility] Start: 12-10-2018 End: 01-29-2019 Alcohol intake Current non-drinker of alcohol (finding) [facility] Work Phone: Start: 12-10-2018 Tobacco Comment Pt stated woul d quit if need a kidney [employer] [facility] Start: 1960 Sex Assigned At Not on file [facility] [employer] Start: 10-21-2017 End: 12-10-2018 Tobacco use and exposure Never used [employer] [facility] Start: 12-10-2018 End: 09-28-2024 Alcohol intake No [facility] Start: 12-10-2018 Tobacco Comment Pt stated woul d quit if need a kidney [facility] Work Phone: Start: 07-09-2021 End: 09-27-2022 Exposure to SARS-CoV-2 (event) Not sure [facility] PHQ2 Score 0 [facility] Start: 11-26-2023 Tobacco smoking status Heavy t obacco smoker (finding) [facility] Sex Assigned At Female [facility] Functional Status Date Assessment Result Facility 11-26-2023 Functional Status Activity Jean-Claude tance Independent [facility] 11-26-2023 Functional Status Standard Safet y ID band on, Allergy Band on, Call device within reach, Bed in low position, Wheels locked, Bedside Cart Locked, Safety level maintained [facility] Mental Status Date Assessment Result Facility 11-26-2023 Mental Status Orientation Oriented x 4 [facility] 11-26-2023 Mental Status Orientation Asse ssment Oriented x 4 [facility] Clinical Notes 07-21-2021 to 09-28-2024 Tamera Castelan MD - 09/28/2024 2:43 PM Jimi Corona RN - 11/16/2023 4:40 PM Lacho Lowery MD - 09/29/2022 1:49 PM EDTDischarge Instr - ActivityDischarge Instr - DietAttachments Note Date & Type Note Facility 09-28-2024 Note HNO ID: [id number] Author: Tamera CASTELAN MD Service: ? Author Type: Physician Type: Progress Notes Filed: 09/28/2024 15:09 Note Text: Dallin Castelan MD General Surgery [address] [place] [address], [address] [place] [address] Patient referred by: No referring provider defined for this encounter. CANDE Boyer is a 64 year old White female who is referred in consideration of placing a peritoneal dialysis catheter. She is seen today with her [id number] She has CKD stage V. Her GFR [...] Content: Thought con (more content not included)... [facility] 09-28-2024 History of Present illness Narrative Images from the original note were not included. Dallin Castelan MD General Surgery [facility], [address] [place] [address] Patient referred by: No referring provider defined for this encounter. CANDE Boyer is a 64 year old White female who is referred in consideration of placing a peritoneal dialysis catheter. She is seen today with her [id number] She has CKD stage V. Her GFR [...] few months -I will discuss with her industrial engineering technologist Plan: Will plan a laparoscopic insertion of [...] This office note has been created using [employer], a speech recognition software program, and may contain errors including punctuation, grammar, spelling, gender, and inappropriate words or phrases that pertain to the sytem. documented in this encounter [facility] 11-26-2023 Hospital Discharge instructions Patient Education 11/26/2023 [...] removed after the broken bone has healed. 4900-1992 [employer]. [address] [place] [address]. All rights reserved. This information is not [...] thin towel or cloth. You may use zpra-rhr-jxsplaf pain medicine (NSAIDS or nonsteroidal anti-inflammatory drugs) [...] or is irritated You re-injure your ankle 4582-5544 [employer]. [address] [place] [address]. All rights reserved. This information is not [...] in vomit, stools (black or red color) 4715-0139 [employer]. [address] [place] [address], [place] [address]. All rights reserved. This information is not intended as a substitute for professional medical care. Always follow your healthcare professional's instructions. Follow Up Care 11/26/2023 17:02:53 With:CLIVE ADAMS MD Address: [facility] [address] [place] [address] [phone] When:2-4 days With:CAMILLE GOODMAN MD Address: [address] [place] [phone] When:2-4 days [facility] 11-26-2023 Emergency department Discharge summary Discharge Instructions Thank you for allowing [facility] to assist you with your healthcare needs. [...] with CLIVE ADAMS MD When:Within 2-4 days Where:[address] [place], [place] [address] [facility] [address] [place] [phone] Follow Up with CAMILLE GOODMAN MD When:Within 2-4 days Where:[address] [place] [id number] [phone] Allergies Avelox Dilaudid Percocet codeine morphine penicillin [...] removed after the broken bone has healed. 9121-2075 [employer]. [address] [place] [address]. All rights reserved. This information is not [...] thin towel or cloth. You may use vbeo-hlh-hisuikj pain medicine (NSAIDS or nonsteroidal anti-inflammatory drugs) [...] or is irritated You re-injure your ankle 3705-3074 [employer]. [address] [place], [place] [id number]. All rights reserved. This information is not [...] in vomit, stools (black or red color) 3105-5806 [employer]. [address] [place] [address]. All rights reserved. This information is not intended as a substitute for professional medical care. Always follow your healthcare professional's instructions. Additional Information VACCINATE! IT SAVES LIVES! Members of the community who have not yet received the COVID-19 vaccine and would like to receive it can visit one of [facility] vaccine clinics. There are many vaccine clinic locations within the [facility]. For locations and available times, please visit [email or web address] It is important to note that some COVID mobile vaccine clinics are held outdoors and may be canceled in rainy or stormy conditions. To learn more about pediatric vaccinations (ages 5-11), we invite you to visit the [facility] webpage. [email or web address] To learn more about the COVID-19 vaccine, we invite you to visit the CDC website for a list of frequently asked questions. https://www.cdc.gov/coronavirus/2 019-ncov/vaccines/faq.html [facility] [employer] [facility] Patient Portal Access Instructions: Stay connected with your healthcare team and access your personal medical information anytime with the [facility] [employer] Patient Portal. If you would like a full copy of your medical records please contact the [facility] Medical Records Department Tuesday through Tuesday between 8a.m. and 4:30p.m. Please follow the directions below to access the portal: 1.Access the email account you provided upon registration to the [facility].2.Look for an invitation email from [facility].3.Open the email and access the invitation link: Accept Invitation to [email or web address].Fill in the required avalos to create your account. Sign into [email or web address] with your username and password that you [...] you will allow to register on the [email or web address] Patient Portal for access to your information. You can also access the [email or web address] Patient Portal on the Openbay. Simply click on Health Records under Health Data and then click on the Glance App logo. HOW TO SAFELY DISPOSE OF PRESCRIPTION [...] Call your local pharmacy or go to [email or web address] to find one close to you.3.Make use of household items: Use cat litter or old coffee grounds to dispose medications if other options are not available. Mix your drugs with these household products, seal them in an airtight container and throw it into the garbage. Call [facility]: [phone] to be sure your drugs can be [...] aware that I should contact my doctor. Patient/Terrestrial Ecologist Signature: Date/Time: Relationship to Patient: ____ Witness Name/Signature: Date/Time: [facility] 11-26-2023 Note ORIGINAL EXAMINATION: THREE XRAY VIEWS [...] Sign Date: 11/26/2023 5:58:16 PM Ordering Provider: [facility] 11-26-2023 Note ORIGINAL EXAMINATION: THREE XRAY [...] Sign Date: 11/26/2023 6:02:42 PM Ordering Provider: [facility] 11-16-2023 History of Present illness Narrative Catarina Boyer has been removed from the kidney transplant waiting list due to loss of contact with patient. Status was updated in [facility] and [place]. Letter to be sent. Transplant Coordinators performing verification of change: ALCIDES Ye RN Cory Kapostasy, RN Batting Machine Operator Insulation documented in this encounter [facility] 09-29-2022 Note Discharge Summary Catarina Boyer : [...] Your Medications These medications were sent to [facility] [address] [place] [id number] Hours: Tuesday to Tuesday 10 am to [...] Complexity: follow up within 7-14 calendar days (64877) [] Severe Complexity: follow up within 7 calendar days (63507) FOLLOW UP TESTING, PENDING RESULTS OR REFERRALS AT TRANSITIONAL CARE VISIT: [] Yes [] No PENDING STUDIES: No DISPOSITION: Home FACILITY/HOME CARE AGENCY NAME: Follow up with Camille Goodman MD [address] [facility] [address] Schedule an appointment as soon as possible for a visit in 1 week(s) Dania Falcon MD [address] [facility] access hospital [phone] Schedule an appointment as soon as possible for a visit in 2 week(s) INSTRUCTIONS TO MA/SW: Please call patient on day after discharge (must document patient contacted within 2 business days of discharge). FOLLOW UP QUESTIONS FOR MA/SW: 1. Did you get medications filled and taking them as instructed from discharge? 2. Are you (more content not included)... [facility] 09-29-2022 Hospital course Narrative Images from the [...] Your Medications These medications were sent to [facility] [address] [place] [id number] Hours: Tuesday to Tuesday 10 am to [...] Complexity: follow up within 7-14 calendar days (01731) [] Severe Complexity: follow up within 7 calendar days (91703) FOLLOW UP TESTING, PENDING RESULTS OR REFERRALS AT TRANSITIONAL CARE VISIT: [] Yes [] No PENDING STUDIES: No DISPOSITION: Home FACILITY/HOME CARE AGENCY NAME: Follow up with Camille Goodman MD [address] [facility] [address] [facility] [address] Schedule an appointment as soon as possible for a visit in 1 week(s) Dania Falcon MD [address] [facility] [address] Critical access hospital [phone] Schedule an appointment as soon as possible [...] PM documented in this encounter [facility] 09-29-2022 Hospital Discharge instructions Jonna Lima RN - 09/29/2022 1:47 PM EDT As tolerated Nat Lowery MD - 09/29/2022 1:46 PM EDT Low potassium diet documented in this encounter [facility] 09-29-2022 Note Care Management Prog ress Note [...] Stay (Days): 2 GMLOS: No GMLOS Documented [facility] 09-29-2022 Note Formatting of this n ote [...] 09/29/2022 7:39 AM TCC estimate 10/04/2022 SELENA uDrbin 09/27/2022 10:06 AM 10/04/2022 KATH Mario CNP 09/27/2022 6:31 AM 10/04/2022 KATH Mario CNP 09/27/2022 3:19 AM Length of Stay (Days): 2 GMLOS: No GMLOS Documented [facility] 09-29-2022 Note Formatting of this n ote [...] Stay (Days): 2 GMLOS: No GMLOS Documented [facility] 09-29-2022 Miscellaneous Notes Images from the original [...] Limits Permission given to speak with patient motor vehicle field representative/caregiver as indicated: Confirmation of Payer with patient/family: Yes Payer Name: Edis NIETO Commercial [place]: No Confirmation of Primary Care Physician: Confirmed [...] has insurance and prescription coverage, uses the [facility] in [place] for pharmacy. Plan to DC home and back to work. No needs identified. Patient verbalizes understanding and is in agreement with POC. Peggy Smyth RN Follow up from overnight admission: clinically improved No neuromuscular, boiler house mechanic or cardiac abnormalities. Electrolytes replaced. Ivf discontinue in setting of nagma, renal function stable. Held PO Magnesium as likely exacerbating diarrhea. Advanced diet, electrolytes q12. If stable and tolerating, can de-escalate to GMF in next 12-24 hrs documented in this encounter [facility] 09-29-2022 Consult note Associated Order (s): IP CONSULT TO NEPHROLOGY [facility] Consult Note Patient : Catarina Boyer; 62 y.o. [id number] Reason for Consult: Asked by Dr Nat [...] kidney disease) stage 4, GFR 15-29 ml/min ([facility]) Follows with Dr. Moreno Focal segmental glomerulosclerosis [...] otherwise negative except as mentioned in the [place]. Vital Signs: Vitals: 09/29/22 0800 BP: (!) [...] follow up with Dr Moreno in office. [facility] Phone: 09-29-2022 Consult note Associated Order (s): IP CONSULT TO NEPHROLOGY [facility] Consult Note Patient : Catarina Boyer; 62 y.o. [id number] Reason for Consult: Asked by Dr Nat [...] kidney disease) stage 4, GFR 15-29 ml/min ([facility]) Follows with Dr. Moreno Focal segmental glomerulosclerosis [...] otherwise negative except as mentioned in the [place]. Vital Signs: Vitals: 09/29/22 0800 BP: (!) [...] (interosseous) Fluid Accumulation: No significant fluid accumulation Mason Tender Restoration Labor 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 Associated Order(s): IP CONSULT TO DIETITIAN [...] (interosseous) Fluid Accumulation: No significant fluid accumulation Mason Tender Restoration Labor 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 documented in this encounter [facility] 09-29-2022 Consult note Associated Order (s): IP [...] (interosseous) Fluid Accumulation: No significant fluid accumulation Mason Tender Restoration Labor 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 [facility] 09-29-2022 History of Present illness Narrative Nutrition [...] (interosseous) Fluid Accumulation: No significant fluid accumulation Mason Tender Restoration 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: PER MD-Internal Medicine: MICU [...] On: Kcal/kg Weight Used for Energy Requirements: [place] Weight for Energy Calculation (kg): 52 kg Total Energy Requirements (kcals/day): 28-32 or 9503-0864 Weight Used for Protein Requirements: [place] Weight in Kg Used for Protein Requirements: [...] (233 lb) % Weight Change (Calculated): -1.6 [place] Body Weight (lbs) (Calculated): 115 lbs [place] Body Weight (Kg) (Calculated): 52 kg % [place] Body Weight (Calculated): 199.4 % BMI (kg/m2) (Calculated): 40.6 BMI Categories: Obese Class 3 (BMI 40.0 or greater) Nutrition Diagnosis: Severe malnutrition, Inadequate protein-energy intake related to inadequate protein-energy intake, early satiety as evidenced by poor intake prior to admission, intake 0-25%, nausea, vomiting, diarrhea, reduced welder metal fab strength, moderate muscle loss, weight loss (7.7 [...] Oral Nutrition Supplement Allison Roca RD Contact: *[phone] or secure chat Patient in room, Alert and oriented, no SOB, and able to answer all questions. No needs at this time. Physical Therapy Facility/Department: [facility] ICU Physical Therapy Initial Evaluation NAME: Catarina Boyer : 1960 Date of Service: 09/28/2022 Discharge Recommendations: Home with assist PRN ([facility] PT pending patients wishes/needs at discharge) PT [...] order to return home with assist and [facility] PT. Activity Tolerance Activity Tolerance: Patient limited [...] With device?: No Transfer Assistance: Independent Active Aircraft Landing Gear Inspector: Yes Mode of Transportation: Truck Objective Observation/Palpation [...] electrolyte abnormalities. PMH is listed above. Exam: [facility] Assistance / Modification: SBA Activity Tolerance Activity [...] With device?: No Transfer Assistance: Independent Active Aircraft Landing Gear Inspector: Yes Mode of Transportation: Truck Objective Gross [...] kidney disease) stage 4, GFR 15-29 ml/min ([facility]) Follows with Dr. Moreno Focal segmental glomerulosclerosis [...] pulmonary infiltrates No results found for: PHART, PSS9WZO, PO2ART, PHVEN, USL2UZA Supplemental oxygen settings: Cardiovascular controlled bp RRR [...] [x] Chronic Renal Failure, oliguric [] , BAR ASSISTANT indications [] [] ESRD on HD Infectious, [...] Daily goal : advance diet, transfer to [facility] A- Pain controlled B - SAT SBT [...] 13.9 ABGs: No results for input(s): PHART, CZW9TAF, PO2ART, JCJ9IBG, SO2ART, L0BFDVON in the last 72 hours. Lactic Acid: [...] (interosseous) Fluid Accumulation: No significant fluid accumulation Mason Tender Restoration 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: 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-Subjective: Chief Complaint: Nausea/Vomiting/Diarrhea HPI: This is a [...] On: Kcal/kg Weight Used for Energy Requirements: [place] Weight for Energy Calculation (kg): 52 kg Total Energy Requirements (kcals/day): 28-32 or 9606-8229 Weight Used for Protein Requirements: [place] Weight in Kg Used for Protein Requirements: 52 kg Estimated Total Protein (g/day): .8-1 or 42-52 Estimated Daily Total Fluid (ml/day): or per md Nutrition Related Findings: 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 -NO APPETITE,nausea resolved with phenergan, ca 4.2, [...] lb) (07/21/22) % Weight Change (Calculated): -7.7 [place] Body Weight (lbs) (Calculated): 115 lbs [place] Body Weight (Kg) (Calculated): 52 kg % [place] Body Weight (Calculated): 187 % BMI (kg/m2) (Calculated): 38.1 BMI Categories: Obese Class 2 (BMI 35.0 -39.9) Nutrition Diagnosis: Severe malnutrition, Inadequate protein-energy intake related to inadequate protein-energy intake, early satiety as evidenced by poor intake prior to admission, intake 0-25%, nausea, vomiting, diarrhea, reduced welder metal fab strength, moderate muscle loss, weight loss (7.7 [...] Oral Nutrition Supplement Allison Roca RD Contact: *[phone] or secure chat documented in this encounter [facility] 09-28-2022 Note ICU Progress Note Name: Catarina [...] kidney disease) stage 4, GFR 15-29 ml/min ([facility]) Follows with Dr. Moreno Focal segmental glomerulosclerosis [...] pulmonary infiltrates No results found for: PHART, UZC5IEA, PO2ART, PHVEN, AAI4HLK Supplemental oxygen settings: Cardiovascular controlled bp RRR [...] [x] Chronic Renal Failure, oliguric [] , BAR ASSISTANT indications [] [] ESRD on HD Infectious, [...] m (5' 3 (more content not included)... [facility] 09-27-2022 Note IMPRESSION: Sinus rhythm Abnormal R-wave progression, early transition Nonspecific T abnormalities, lateral leads Compared to ECG 10/01/2021 15:33:29 T-wave abnormality now present Electronically Signed On 09-27-2022 14:44:39 EDT by Stoney Maurice [facility] 09-27-2022 Note Sinus rhythm Abnormal R-wave progression, early transition Nonspecific T abnormalities, lateral leads Compared to ECG 10/01/2021 15:33:29 T-wave abnormality now present Electronically Signed On 09-27-2022 14:44:39 EDT by Stoney Maurice [facility] 09-27-2022 Note Sinus rhythm Abnormal R-wave progression, early transition Nonspecific T abnormalities, lateral leads Compared to ECG 10/01/2021 15:33:29 T-wave abnormality now present Electronically Signed On 09-27-2022 14:44:39 EDT by Stoney Maurice [facility] 09-27-2022 Note Formatting of this n ote might be different from the original. Care Managment Initial Assessment Date: 09/27/2022 Patient Name: Catarina Boyer : 1960 Patient Information Source of Information: Patient Cognition/Language: WFL - Within Functional Limits Permission given to speak with patient motor vehicle field representative/caregiver as indicated: Confirmation of Payer with [...] Living Prescription Coverage: Yes Pharmacy Used: [facility] [place], [place] Medication Management: Independent Transportation/Shopping: Independent Transportation [...] and prescription coverage, uses the [facility] in [place] for pharmacy. Plan to DC home and back to work. No needs identified. Patient verbalizes understanding and is in agreement with POC. Peggy Smyth RN [facility] 09-27-2022 Note Formatting of this n ote might be different from the original. Care Managment Initial Assessment Date: 09/27/2022 Patient Name: Catarina Boyer : 1960 Patient Information Source of Information: Patient Cognition/Language: WFL - Within Functional Limits Permission given to speak with patient motor vehicle field representative/caregiver as indicated: Confirmation of Payer with patient/family: Yes Payer Name: Edis NIETO Commercial [place]: No Confirmation of Primary Care Physician: Confirmed [...] Living Prescription Coverage: Yes Pharmacy Used: [facility] [place], [place] Medication Management: Independent Transportation/Shopping: Independent Transportation [...] and prescription coverage, uses [facility] in [place] for [facility]. Plan to DC home and back to work. No needs identified. Patient verbalizes understanding and is in agreement with POC. Peggy Smyth RN [facility] 09-27-2022 Consult note Associated Order (s): IP [...] (interosseous) Fluid Accumulation: No significant fluid accumulation Mason Tender Restoration Labor 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 [facility] 09-27-2022 Plan of care note Follow up from overnight admission: clinically improved No neuromuscular, boiler house mechanic or cardiac abnormalities. Electrolytes replaced. Ivf discontinue in setting of nagma, renal function stable. Held PO Magnesium as likely exacerbating diarrhea. Advanced diet, electrolytes q12. If stable and tolerating, can de-escalate to GMF in next 12-24 hrs [facility] 09-27-2022 Note Internal Medicine: I CU Initial [...] kidney disease) stage 4, GFR 15-29 ml/min ([facility]) Follows with Dr. Moreno Focal segmental glomerulosclerosis [...] Mouth: Mucous membr (more content not included)... [facility] 09-27-2022 Emergency department Note Pt is actively shaking and vomiting. Adia Glez RN 09/27/22 0059 [facility] 09-27-2022 Emergency department Note Pt is actively [...] kidney disease) stage 4, GFR 15-29 ml/min ([facility]) Follows with Dr. Moreno Focal segmental glomerulosclerosis [...] In compliance with this authorization, please visit www.fda.gov/media/921257/download or www.fda.gov/media/188443/download to access the applicable information sheets. LIPASE [...] setting of profound hypomagnesemia, no evidence of IA, QRS or QTc interval abnormalities, no evidence of ventricular dysrhythmias on manager animation. Given profound electrolyte abnormalities was discussed with [...] 0156 documented in this encounter [facility] 09-27-2022 Emergency department Note Bed: 13 Expected date: 09/27/22 Expected time: Means of arrival: Comments: Triage B Jessi Thurman RN 09/27/22 0156 [facility] 09-27-2022 Emergency department Triage note Pt presented to ED with complaints of nausea, vomiting, diarrhea, shakiness and generalized weakness. Pt states she has been sick for about a week and is not getting better. Pt is unable to keep food or drink down. Pt has had a fever and chills as well. [facility] 06-05-2023 Physician Emergency department Note EMERGENCY DEPARTMENT [...] kidney disease) stage 4, GFR 15-29 ml/min ([facility]) Follows with Dr. Moreno Focal segmental glomerulosclerosis [...] In compliance with this authorization, please visit www.fda.gov/media/891405/download or www.fda.gov/media/237703/download to access the applicable information sheets. LIPASE [...] setting of profound hypomagnesemia, no evidence of IA, QRS or QTc interval abnormalities, no evidence of ventricular dysrhythmias on manager animation. Given profound electrolyte abnormalities was discussed with [...] Iman Argueta DO 09/27/22 0448 [facility] 03-03-2022 Miscellaneous Notes Letter was sent to call the kidney transplant office on 06/26/21. Unable to reach the pt via phone at 1:10pm on 03/03/22. A review of Care Everywhere reveals that the pt continues to smoke. Will send a letter to the pt regarding removal from the transplant list for inability to reach the pt. RENY Reyna, RN, [facility] Kidney Batting Machine Operator Insulation VCA (Uterus, Face, Hand) Batting Machine Operator Insulation documented in this encounter [facility] 01-20-2022 Hospital Discharge instructions Tye Sanon MD [...] and/or NSAIDS, please take your opioid prescription ([place]/vicodin/percocet have tylenol in them) as needed for [...] your scheduled surgery time. Please bring your [facility] folder and medication list with you day of surgery. We encourage you to write down any questions you may have for the surgeon, anesthesiologist, or other members of the surgical team and bring it with you the day of surgery. Please bring photo ID and insurance information. The following attachments cannot be sent through Care Everywhere.Cholecystectomy: Pre-op (Ecuadorean)documented in this encounter [facility] Work Phone: 07-21-2021 Note Physician Discharge Summary Patient ID: Catarina Boyer [id number] y.o. 1960 Admit date: 07/19/2021 Discharge [...] Signed: CARYL CLARKE DO 07/21/2021 1:29 PM [facility] 07-21-2021 Hospital course Narrative Physician Discharge Summary Patient ID: Catarina Boyer [id number] y.o. 1960 Admit date: 07/19/2021 Discharge [...] of Present illness Narrative Progress Note Date:07/21/2021 Room:[address] [place] [address] Patient Name:Catarina Boyer Date of :1960 Age:61 [...] Radiology ACCESSION EXAM DATE/TIME PROCEDURE ORDERING PROVIDER [id number] 07/20/2021 01:03 EDT CR Chest PA & LAT [id number] -TOM NUNES CPT code 65464 Reason For Exam (CR Chest PA & [...] PATIENT NAME: Catarina Boyer DATE: 07/21/2021 PAGER: [phone] Full note to follow. Patient is known to Dr Moreno. Was started on veltassa during last visit. K remains high. Add kayexalate today. Cut back losartan. Nutrition rescreen completed. Patient assigned a level 1. 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 note* Diagnosis Stage 5 chronic kidney disease not on chronic dialysis (HCC)- Primary documented in this encounter [facility] note* Diagnosis Hyperkalemia Hyperpotassemia documented in this encounter [facility] Discharge instructions* Attachments The following attachments cannot be sent through Care Everywhere. * Abdominal Pain (Ecuadorean) [facility]: Summary Purpose Family History [...] FoundDocuments on File Type Date Recorded Patient Terrestrial Ecologist Expl anation Advance Directives and Living Will Power of Field Account Director Documents on File Type Date Recorded Patient Terrestrial Ecologist Expl anation ACP-Advance Directive ACP-Power of Field Account Director Latest Code Status on File Code Status Date Activated Date Inactivated Comments Full Code 07/20/2021 3:05 AM Documents on File Type Date Recorded Patient Terrestrial Ecologist Expl anation ACP-Advance Directive ACP-Power of Field Account Director Latest Code Status on File Code Status [...] Physician Discharge Summary Patient ID: Catarina Boyer [id number] y.o. 1960 Admit date: 12/10/2018 Discharge [...] be sent through Care Everywhere. * Diverticulitis (Ecuadorean) documented in this encounter History of Present [...] Diagnoses Abdominal pain, epigastric Angel Ch MD [address] [place] [address] Giovanny Stoney, DO [address] [place] [address] Referral ID Status Reason Start Date Expiration Date V isits Requested Visits Authorized [id number] [facility] Required 10/01/2021 10/01/2022 1 1 Scheduling Instructions [facility] Surg [facility] - Stoney Baltazar, DO [address] [place] [address] Additional Source Comments INFORMATION SOURCE (unrecogn ized section and content) DATE CREATED AUTHOR 12/09/2018 [facility] DATE CREATED AUTHOR AUTHOR'S ORGANIZ ATION 06/08/2021 [facility] DATE CREATED AUTHOR AUTHOR'S ORGANIZ ATION 12/18/2021 [facility] DATE CREATED AUTHOR AUTHOR'S ORGANIZ ATION 01/26/2022 [facility] DATE CREATED AUTHOR AUTHOR'S ORGANIZ ATION 06/25/2023 [facility] DATE CREATED AUTHOR AUTHOR'S ORGANIZ ATION 12/02/2023 [facility] ([place] DATE CREATED AUTHOR AUTHOR'S ORGANIZ ATION 02/25/2024 [facility] DATE CREATED AUTHOR AUTHOR'S ORGANIZ ATION 12/27/2024 [facility] DATE CREATED AUTHOR AUTHOR'S ORGANIZ ATION 01/14/2025 [facility] Reason for Visit (unrecogniz ed section and content) Reason Comments Emesis Reason Comments Chest Pain Reason Comments Abdominal Pain upper abdominal pain , +N/D/fever Reason Comments Follow Up Reason Comments Weakness, Gen Specialty Diagnoses / Procedures Referred By Tammi t Referred To Contact Diagnoses Hypomagnesemia Weakness Diarrhea, unspecified type Procedures E83.42 Angel Hernandez, DO [address] [place] [address], [address] [place] [address] [facility] [address] [place] [address] Referral ID Status Reason Start Date Expiration Date Visits Re quested Visits Authorized [id number] 1 1 Reason Comments New Patient PD [...] Courtney Kumar, ALCIDES) 0638 (Given - Provider: Caroalnn Cordero RN) sodium polystyrene (KAYEXALATE) 15 GM/60ML [...] Damaris 07/23/21 at 1149, Line Care, Per Public Speaking Teacher Request, May use order for Line Care after every IV line use and Agitated Saline Bubble Study. Administration for Bubble Study per art therapy specialist request for only. Remove 1 mL 0.9% [...] - Provider: Maurizio Penny RN) nystatin (Mycostatin) 108151 UNIT/ML suspension 500,000 Units (CANCELED) 500,000 Units [...] Cruz Tam, ALCIDES)0844 (Stopped - Provider: Maurizio Penny RN) PRN Medication Order 09/27/2022 09/28/2022 09/29/2022 [...] (1-3), Starting on Tue09/27/22 at 1553, Give IA if unable to administer by mouth or [...] (1-3), Starting on Tue09/27/22 at 1553
Give IA if unable to administer by mouth or [...]
Care Teams (unrecognized sec tion and content) Edge Roller Relationship Specialty Start Date End Date Camille Goodman MD [address] [place] [address] [id number] PCP - General 11/05/14 Edge Roller Relationship Specialty Start Date End Date Camille Goodman MD [address] [place] [address] [id number] PCP - General 11/05/14 Edge Roller Relationship Specialty Start Date End Date Camille Goodman MD [address] [place] [address] [id number] PCP - General 11/05/14 Edge Roller Relationship Specialty Start Date End Date Camille Goodman MD [address] [place] [address] [id number] PCP - General 11/05/14 Edge Roller Relationship Specialty Start Date End Date Camille Goodman MD [address] [place] [address] [id number] PCP - General 11/05/14 Edge Roller Relationship Specialty Start Date End Date Camille Goodman MD [address] [place] [address] [phone] PCP - General 11/05/14 Edge Roller Relationship Specialty Start Date End Date Camille Goodman MD [address] [facility] [address] [place] [phone] PCP - General Family Medicine 08/29/17 Edge Roller Relationship Specialty Start Date End Date Camille Goodman MD [address] [place] [address] [id number] PCP - General 11/05/14 Edge Roller Relationship Specialty Start Date End Date Camille Goodman MD [address] [place] [address] [id number] PCP - General 11/05/14 Edge Roller Relationship Specialty Start Date End Date Camille Goodman MD PCP - General Family Medicine 08/29/17 Edge Roller Relationship Specialty Start Date End Date Camille Goodman MD PCP - General Family Medicine 08/29/17 Edge Roller Relationship Specialty Start Date End Date Camille Goodman MD PCP - General Family Medicine 08/29/17 Source Comments (unrecognize d section and content) In the event this informatio n is protected by the Federal Confidentiality of Alcohol and Drug Abuse Patient Records regulations: The Federal rules restrict any use of the information to criminally investigate or prosecute any alcohol or drug abuse patient.[facility] the event this information is protected by the Federal Confidentiality of Alcohol and Drug Abuse Patient Records regulations: The Federal rules restrict any use of the information to criminally investigate or prosecute any alcohol or drug abuse patient.[facility] the event this information is protected by the Federal Confidentiality of Alcohol and Drug Abuse Patient Records regulations: The Federal rules restrict any use of the information to criminally investigate or prosecute any alcohol or drug abuse patient.[facility] Center[facility] the event this information is protected by the Federal Confidentiality of Alcohol and Drug Abuse Patient Records regulations: The Federal rules restrict any use of the information to criminally investigate or prosecute any alcohol or drug abuse patient.[facility] Center[facility] the event this information is protected by the Federal Confidentiality of Alcohol and Drug Abuse Patient Records regulations: The Federal rules restrict any use of the information to criminally investigate or prosecute any alcohol or drug abuse patient.[facility] FOR RECORDS PERTAINING TO PATIENTS WHO ARE [...] BE BASED ON THE PRIMARY CLINICAL RECORDS. [facility] [employer] [facility]. provides no warranty or guarantee of the accuracy or completeness of information in this document.
[2025-01-16] MEDS: 0.9% Normal Saline (1000mL) 1,000 ML 70 ML IV (03:25)
[2025-01-16] MEDS: 0.9% Saline Lock 10 ML Syringe IV ×3 (03:26→22:32)
[2025-01-16 03:43] LABS: Troponin T High Sens 4 HR 46 ng/L (<=14)
[2025-01-16 04:26] LABS: Alcohol, Blood (Medical)-Serum < 10.1 mg/dL (<=10.0)
[2025-01-16 04:42] LABS: Magnesium 0.9 mg/dL (1.5-2.2)
[2025-01-16 05:22] LABS: Hematocrit 27.4 % (37-47); Hemoglobin 9.0 g/dL (12.0-15.0); Immature Granulocytes Count 0.040 X10^3/uL (0.0-0.0); Mean Corp Hgb Conc 32.8 g/dL (32-36); Mean Corpuscular Volume 89.8 fL (81-99); Mean Platelet Vol. 10.4 fl (6.2-12.0); NRBC Flagged by Analyzer 0 % (0-5); Platelet Count 356 K/mm3 (150-450); RBC Distribution Width CV 13.2 % (11.6-14.6); RBC Distribution Width SD 43.6 fl (35.1-43.9); Red Blood Count 3.05 M/mm3 (4.2-5.4); White Blood Count 9.3 K/mm3 (4.4-11.0)
[2025-01-16] MEDS: Magnesium Sulfate 2 GM in Dextrose 5%-Water (100mL Bag) 100 ML IV (05:28)
[2025-01-16] MEDS: Magnesium Chloride 64 MG Delay Rel.Tablet 128 MG PO ×3 (05:29→22:32)
[2025-01-16] MEDS: Heparin Injection (Vial) 5,000 UNIT/ML VIAL 5000 UNIT SC ×3 (05:29→22:32)
[2025-01-16 05:45] LABS: Barbiturate Urine NEGATIVE (< 200 ng/mL); Benzodiazepine Urine NEGATIVE (< 200 ng/mL); PCP Urine NEGATIVE (< 25 ng/mL); THC Urine NEGATIVE (< 50 ng/mL)
[2025-01-16 05:45] LABS: Cholesterol 170 mg/dL (<=200); Low Density Lipoprotein Calc. 104 mg/dL; Triglycerides 130 mg/dL; Very Low Density Lipoprotein 26 mg/dL (5-40); cholesterol:hdl ratio screen 4.21
[2025-01-16 05:46] LABS: AST(SGOT) 20 U/L (<=31); Alanine Aminotransfer ALT/SGPT < 5 U/L (<=34); Albumin, Serum 3.8 g/dL (3.4-4.8); Alkaline Phosphatase 140 U/L (35-104); Anion Gap 15 (5-15); BUN 33 mg/dL (4-19); BUN/Creat Ratio 8.7 RATIO (10-20); Calcium,Total 7.6 mg/dL (7.6-11.0); Carbon Dioxide 16.4 mmol/L (21.0-32.0); Chloride 109 mmol/L (98-108); Estimated Creatinine Clearance 16.47 ml/min (50-250); Globulin 2.3 g/dL (2.2-4.2); Glucose 87 mg/dL (70-99); Potassium 4.7 mmol/L (3.3-5.1)
[2025-01-16 08:14] LABS: Magnesium 1.7 mg/dL (1.5-2.2)
--- NOTE | 2025-01-16 11:39 | NEURO.CONS ---
Assessment and Plan: Neuro Assessment/Plan CARLOS A COYLE, is a 64 F with a past medical history of essential hypertension, hyperlipidemia, hypothyroidism, CKD, who presents to [facility] ER with confusion. She went to sleep normal, woke up on the floor confused with her whole body aching. In the ER she was reportedly having R side numbness and facial droop, but she has no recollection of this and this has resolved by now and her exam is non-focal. MRI brain with no acute findings. Presentation is concerning for seizure Vs. TIA Recommendations: - Obtain routine EEG I personally attended this patient and spent a total time of 45 minutes evaluating this patient including clinical assessment, review of chart, medical history imaging, and determining appropriate treatment and workup. HPI Consult Data Date of Consult: 01/16/25 HPI Narrative HPI Narrative: CARLOS A COYLE, is a 64 F with a past medical history of essential hypertension, hyperlipidemia, hypothyroidism, CKD, who presents to [facility] ER wtih confusion. Ms. Coyle reports she works third shift and returned home after work at ~8:00 AM and then went to bed normal at that time. She then woke up on the floor next to her bed at ~8:00 PM, she was hurting all over, she didn't' know where she was at or what she was doing she felt confused. Her tongue was hurting at the tip, and it still hurts. She is unsure if she wet herself. She also had nausea and she vomited. She doesn't think she had headache. She doesn't recall having sensory changes or numbness. She did not look in the mirror and she doesn't' know if she had a facial droop. Per the ER note, she had mild sensory deficit on R arm and leg with mild R facial asymmetry. She denies prior history of seizures. She never woken up at the floor before. In the ER she underwent a CT scan of the brain without contrast that revealed no acute intracranial abnormality. WBC 13. Exam performed with help of the nurse/CRAIG present with patient on Tele site NEURO: AAOx3, follows commands, no aphasia/dysarthria. PERRL, EOMI, no gaze preference/nystagmus. Face symmetric, Intact facial sensation. Tongue midline. Head turning intact. Sensation: intact to light touch all over Motor: All extremities antigravity Coordination: FTN intact bilaterally PFSH Medical History (Updated 01/16/25 @ 02:[address] Brian Washubrn, DO) High cholesterol GERD (gastroesophageal reflux disease) Hypothyroidism HTN (hypertension) Medical History no medical history Home Medications ?Medication ?Instructions ?Recorded ?Last Taken ?Type levothyroxine 50 mcg tablet 50 mcg PO DAILY 11/22/17 02/01/24 History magnesium oxide 400 mg (241.3 mg 400 mg PO TID 11/22/17 02/02/24 History magnesium) tablet acetaminophen 500 mg tablet 1,000 mg PO Q6H PRN pain 02/02/24 02/02/24 History amlodipine 10 mg tablet 10 mg PO DAILY 02/02/24 02/01/24 History amoxicillin 875 mg-potassium 1 tab PO Q12H 7 days #14 tabs 02/02/24 Unknown Rx clavulanate 125 mg tablet ergocalciferol (vitamin D2) 1,250 1,250 mcg PO .COMPLEX 02/02/24 01/20/24 History mcg (50,000 unit) capsule hyoscyamine sulfate 0.125 mg tablet 0.125 mg PO Q6H PRN dyspepsia 5 02/02/24 Unknown Rx days #20 tabs omeprazole 40 mg capsule,delayed 40 mg PO DAILY PRN heartburn 02/02/24 02/01/24 History release ondansetron 4 mg disintegrating 4 mg PO Q6H PRN nausea and 02/02/24 Unknown Rx tablet vomiting #20 tabs ondansetron 4 mg disintegrating 4 mg PO Q8H PRN nausea and vomiting 02/02/24 02/02/24 History tablet psyllium (Hydrocil Instant oral 1 packet PO DAILY PRN constipation 02/02/24 02/01/24 History packet) rosuvastatin 20 mg tablet 20 mg PO DAILY 02/02/24 02/01/24 History sodium bicarbonate 650 mg tablet 650 mg PO 4X/DAY 02/02/24 02/02/24 History tramadol 50 mg tablet 50 mg PO Q6H PRN pain 3 days #12 02/02/24 Unknown Rx tabs Allergy/AdvReac Type Severity Reaction Status Date / Time acetaminophen (From Percocet) Allergy Shortness Verified 02/02/24 08:53 of breath codeine Allergy Shortness Verified 02/02/24 08:53 of breath hydromorphone (From Dilaudid) Allergy Shortness Verified 02/02/24 08:53 of breath morphine Allergy Shortness Verified 02/02/24 08:53 of breath moxifloxacin (From Avelox) Allergy Shortness Verified 02/02/24 08:53 of breath oxycodone (From Percocet) Allergy Shortness Verified 02/02/24 08:53 of breath Penicillins Allergy Shortness Verified 02/02/24 08:53 of breath Family History no significant family his Surgical History no surgical history Social History household members: none Smoking Status: Heavy Smoker (>10/day) Vital Signs Vital Signs Vital Signs: 01/15/25 21:56 01/15/25 22:00 01/15/25 22:00 Temperature Temperature Source Pulse Rate 74 75 Pulse Strength Respiratory Rate 13 15 Respiratory Effort Respiratory Depth Respiratory Pattern Blood Pressure 143/79 H 131/63 H Blood Pressure Mean 100 85 Blood Pressure Source Blood Pressure Position Blood Pressure Location Pulse Ox 97 97 Oxygen Delivery Method Room Air Room Air Room Air Oxygen Flow Rate (L/min) 01/15/25 22:11 01/15/25 22:15 01/15/25 22:30 Temperature 98.1 F Temperature Source Oral Pulse Rate 77 69 Pulse Strength Respiratory Rate 16 16 Respiratory Effort Normal Respiratory Depth Normal Respiratory Pattern Normal Blood Pressure 143/79 H 146/75 H Blood Pressure Mean 100 98 Blood Pressure Source Blood Pressure Position Blood Pressure Location Pulse Ox 97 98 92 Oxygen Delivery Method Room Air Room Air Room Air Oxygen Flow Rate (L/min) 01/15/25 22:40 01/15/25 22:45 01/15/25 23:00 Temperature Temperature Source Pulse Rate 68 72 70 Pulse Strength Respiratory Rate 20 H 15 16 Respiratory Effort Respiratory Depth Respiratory Pattern Blood Pressure 121/74 H 137/74 H Blood Pressure Mean 89 95 Blood Pressure Source Blood Pressure Position Blood Pressure Location Pulse Ox 90 96 94 Oxygen Delivery Method Room Air Oxygen Flow Rate (L/min) 01/15/25 23:00 01/15/25 23:15 01/15/25 23:30 Temperature Temperature Source Pulse Rate 71 Pulse Strength Respiratory Rate 13 Respiratory Effort Respiratory Depth Respiratory Pattern Blood Pressure 137/74 H 137/74 H 134/51 H Blood Pressure Mean 93 92 75 Blood Pressure Source Blood Pressure Position Blood Pressure Location Pulse Ox 95 94 94 Oxygen Delivery Method Oxygen Flow Rate (L/min) 01/15/25 23:45 01/16/25 00:00 01/16/25 00:00 Temperature Temperature Source Pulse Rate 70 Pulse Strength Respiratory Rate 20 H Respiratory Effort Respiratory Depth Respiratory Pattern Blood Pressure 130/62 H 132/64 H 132/64 H Blood Pressure Mean 82 86 82 Blood Pressure Source Blood Pressure Position Blood Pressure Location Pulse Ox 97 Oxygen Delivery Method Room Air Oxygen Flow Rate (L/min) 01/16/25 00:08 01/16/25 00:15 01/16/25 00:30 Temperature Temperature Source Pulse Rate 65 68 65 Pulse Strength Respiratory Rate 16 15 13 Respiratory Effort Respiratory Depth Respiratory Pattern Blood Pressure Blood Pressure Mean Blood Pressure Source Blood Pressure Position Blood Pressure Location Pulse Ox 96 96 96 Oxygen Delivery Method Oxygen Flow Rate (L/min) 01/16/25 00:45 01/16/25 01:00 01/16/25 01:06 Temperature 98.1 F Temperature Source Pulse Rate 61 73 65 Pulse Strength Respiratory Rate 17 15 16 Respiratory Effort Respiratory Depth Respiratory Pattern Blood Pressure 132/64 H Blood Pressure Mean 86 Blood Pressure Source Blood Pressure Position Blood Pressure Location Pulse Ox 94 96 96 Oxygen Delivery Method Oxygen Flow Rate (L/min) 01/16/25 01:30 01/16/25 02:00 01/16/25 02:26 Temperature 96.8 F L Temperature Source Temporal Pulse Rate 76 82 69 Pulse Strength Respiratory Rate 18 18 18 Respiratory Effort Respiratory Depth Respiratory Pattern Blood Pressure 155/91 H 125/86 H Blood Pressure Mean 112 99 Blood Pressure Source Monitor Blood Pressure Position Supine Blood Pressure Location Left Arm Pulse Ox 98 97 94 Oxygen Delivery Method Room Air Room Air Room Air Oxygen Flow Rate (L/min) 01/16/25 03:41 01/16/25 04:25 01/16/25 05:26 Temperature Temperature Source Pulse Rate Pulse Strength Respiratory Rate Respiratory Effort Normal Respiratory Depth Respiratory Pattern Blood Pressure Blood Pressure Mean Blood Pressure Source Blood Pressure Position Blood Pressure Location Pulse Ox 89 95 Oxygen Delivery Method Room Air Room Air Nasal Cannula Oxygen Flow Rate (L/min) 2 01/16/25 05:55 01/16/25 08:34 01/16/25 08:41 Temperature 97.6 F L Temperature Source Oral Pulse Rate 64 Pulse Strength Normal (2+) Respiratory Rate 18 Respiratory Effort Normal Non-Labored Respiratory Depth Normal Respiratory Pattern Normal Blood Pressure 130/68 H Blood Pressure Mean 88 Blood Pressure Source Monitor Blood Pressure Position Semi-Fowlers Blood Pressure Location Left Arm Pulse Ox 96 Oxygen Delivery Method Nasal Cannula Nasal Cannula Oxygen Flow Rate (L/min) 2 2 01/16/25 08:45 01/16/25 09:49 Temperature 98.2 F Temperature Source Oral Pulse Rate 61 Pulse Strength Respiratory Rate 17 Respiratory Effort Respiratory Depth Respiratory Pattern Blood Pressure 140/65 H Blood Pressure Mean 90 Blood Pressure Source Monitor Blood Pressure Position Semi-Fowlers Blood Pressure Location Left Arm Pulse Ox 97 98 Oxygen Delivery Method Nasal Cannula Nasal Cannula Oxygen Flow Rate (L/min) 2 2 Weight Weight: 91.8 kg Body Mass Index (BMI) 35.8 EEG Results Procedure Details EEG Procedure Details: CARLOS A COYLE is a 64 year old F with a past medical history of , who presents for evaluation of Electroencephalogram on DATE at TIME Lab / Micro Data 01/16/25 04:55 01/16/25 04:55 Labs: Laboratory Results - last 24 hr 01/15/25 22:10: WBC 13.2 H, RBC 3.40 L, Hgb 10.0 L, Hct 30.4 L, MCV 89.4, MCH 29.4, MCHC 32.9, RDW Std Deviation 43.7, RDW Coeff of Beatriz 13.3, Plt Count 368, MPV 10.3, Immature Gran % (Auto) 0.500, Neut % (Auto) 84.4 H, Lymph % (Auto) 10.3 L, Mcleod % (Auto) 4.0, Eos % (Auto) 0.2, Baso % (Auto) 0.6, Absolute Neuts (auto) 11.1 H, Absolute Lymphs (auto) 1.36, Nucleated RBC % 0, PT 13.6, INR 1.0, APTT 29.0, Sodium 142, Potassium 5.0, Chloride 110 H, Carbon Dioxide 16.1 L, Anion Gap 17 H, BUN 36 H, Creatinine 4.06 H, Estim Creat Clear Calc 15.76 L, Est GFR (MDRD) Non-Af 12 L, BUN/Creatinine Ratio 8.8 L, Glucose 139 H, Hemoglobin A1c 5.4, Calcium 7.5 L, Troponin T High Sens 45 H 01/15/25 23:51: Lactic Acid < 1.0 01/16/25 00:12: Phosphorus 5.3 H, Magnesium 0.9 L*, Troponin T Hi Sens 2 Hr 46 H, TSH 1.000 01/16/25 01:04: Urine Color Straw, Urine Clarity Clear, Urine pH 6.0, Ur Specific [place] 1.015, Urine Protein 100 H, Urine Glucose (UA) Normal, Urine Ketones Negative, Urine Occult Blood 150 H, Urine Nitrite Negative, Urine Bilirubin Negative, Urine Urobilinogen Normal, Ur Leukocyte Esterase Negative, Urine RBC 0 SEEN, Urine WBC 0 SEEN, Ur Squamous Epith Cells 0 SEEN, Urine Bacteria 0 SEEN, Urine Mucus 0 SEEN, Urine Opiates Screen NEGATIVE, U Buprenorphine Qual NEGATIVE, Ur Oxycodone Screen NEGATIVE, Urine Methadone Screen NEGATIVE, Urine Fentanyl Screen NEGATIVE, Ur Barbiturates Screen NEGATIVE, Ur Phencyclidine Scrn NEGATIVE, Ur Amphetamines Screen NEGATIVE, U Benzodiazepines Scrn NEGATIVE, Urine Cocaine Screen NEGATIVE, U Cannabinoids Screen NEGATIVE 01/16/25 02:04: Troponin T Hi Sens 4Hr 46 H, Ethyl Alcohol < 10.1 01/16/25 04:55: WBC 9.3, RBC 3.05 L, Hgb 9.0 L, Hct 27.4 L, MCV 89.8, MCH 29.5, MCHC 32.8, RDW Std Deviation 43.6, RDW Coeff of Beatriz 13.2, Plt Count 356, MPV 10.4, Immature Gran % (Auto) 0.400, Neut % (Auto) 75.7 H, Lymph % (Auto) 17.2 L, Mcleod % (Auto) 5.7, Eos % (Auto) 0.5, Baso % (Auto) 0.5, Absolute Neuts (auto) 7.0, Absolute Lymphs (auto) 1.59, Nucleated RBC % 0, Sodium 141, Potassium 4.7, Chloride 109 H, Carbon Dioxide 16.4 L, Anion Gap 15, BUN 33 H, Creatinine 3.81 H, Estim Creat Clear Calc 16.47 L, Est GFR (MDRD) Non-Af 13 L, BUN/Creatinine Ratio 8.7 L, Glucose 87, Calcium 7.6, Total Bilirubin 0.29, AST 20, ALT < 5, Alkaline Phosphatase 140 H, Total Protein 6.1, Albumin 3.8, Globulin 2.3, Albumin/Globulin Ratio 1.6, Triglycerides 130, Cholesterol 170, LDL Cholesterol, Calc 104, VLDL Cholesterol 26, HDL Cholesterol 40, Cholesterol/HDL Ratio 4.21 01/16/25 07:36: Magnesium 1.7 Imaging Radiology Impression Brain CT 01/15/25 22:00 IMPRESSION: No acute intracranial abnormality. Reading Location: [id number] Chest X-Ray 01/15/25 23:59 IMPRESSION: Mild bilateral basilar atelectatic pulmonary changes. [id number] 01/16/25 01:53 IMPRESSION: No acute brain abnormalities. Foci of hyperintense signal on T2 and FLAIR in the white matter which are nonspecific but most likely due to chronic small-vessel ischemia. Reading Location: [facility] Active Medications Active Medications Active Medications: Current Medications Generic Name Dose Route Start Last Admin Trade Name Freq PRN Reason Stop Dose Admin Acetaminophen 650 mg 01/16/25 02:26 01/16/25 10:20 Acetaminophen 325 Mg Tablet PO 650 mg Q6H PRN PRN Administration Pain 1-10 or Fever Ergocalciferol 1.25 mg 01/18/25 08:00 Ergocalciferol 1.25 Mg (50, 000 Unit) Capsule PO Q14D JD Heparin Sodium (Porcine) 5,000 unit 01/16/25 06:00 01/16/25 05:29 Heparin Injection (Vial) 5,000 Unit/Ml Vial SC 5,000 unit TID JD Administration Hyoscyamine Sulfate 0.125 mg 01/16/25 02:52 Hyoscyamine Sulfate 0.125 Mg Tablet PO Q6H PRN PRN dyspepsia Sodium Chloride 1,000 mls @ 70 mls/hr 01/16/25 02:26 01/16/25 09:46 IV 01/16/25 16:43 70 mls/hr .[id number] JD Infusion Sodium Chloride 250 mls @ 15 mls/hr 01/16/25 02:34 IV .[id number] PRN Saline Flush Sodium Chloride 250 mls @ 15 mls/hr 01/16/25 02:34 IV .[id number] PRN Additional IVPB Infusion Levothyroxine Sodium 50 mcg 01/16/25 06:00 01/16/25 05:29 Levothyroxine 50 Mcg Tablet PO 50 mcg DAILY@0600 JD Administration Magnesium Chloride 128 mg 01/16/25 06:00 01/16/25 05:29 Magnesium Chloride 64 Mg Delay Rel.Tablet PO 128 mg TID JD Administration Nicotine 14 mg 01/16/25 10:00 01/16/25 09:56 Nicotine (Pbkc) 14 Mg Patch TD Not Given DAILY JD Pantoprazole Sodium 40 mg 01/16/25 02:26 Pantoprazole Sodium 40 Mg Tablet PO DAILY PRN PRN HEARTBURN Pravastatin Sodium 20 mg 01/16/25 22:00 Pravastatin 20 Mg Tablet PO QHS JD Psyllium Hydrophilic Mucilloid 1 packet 01/16/25 02:54 Psyllium 1 Packet PO DAILY PRN PRN constipation Sodium Bicarbonate 650 mg 01/16/25 10:00 01/16/25 09:56 Sodium Bicarbonate 650 Mg Tablet PO 650 mg 4X/DAY JD Administration Sodium Chloride 10 - 40 ml 01/16/25 02:34 01/16/25 09:47 0.9% Saline Lock 10 Ml Syringe IV 10 ml UD PRN Administration SALINE FLUSH NIHSS NIHSS Nursing Documentation NIHSS Nursing Documentation: NIHSS: Ischemic Stroke/TIA Start: 01/16/25 02:26 Text: For PCU Patients: NIH and Neuro Check every 4 Status: Active hours, PRN and with change in RN caregiver. Freq: [id number] Protocol: Activity Type Activity Date Activity User E-sign Co-sign Detail Recorded Client Recorded Date Recorded By Document 01/16/25 09:49 [id number] 01/16/25 09:54 01/16/25 09:49 NIH Stroke Scale [NIHSS] A score of 0 is normal or asymptomatic . Total possible score is 42. Inpatient: RN or Physician to activate a stroke alert for onset of new stroke symptoms or with NIHSS increase >/= 3 points. Following change in neurological status, NIHSS will be performed per physician order or more frequently PRN. -1a. Level of Consciousness 0 - Alert; keenly responsive -1b. LOC Questions 0 - Answers BOTH questions correctly -1c. LOC Commands 0 - Performs BOTH tasks correctly -2. Best Gaze 0 - Normal -3. Visual 0 - No visual loss -4. Facial Palsy 0 - Normal symmetrical movements -5a. Left Arm 0 - No drift; arm holds 90 ( or 45) degrees for full 10 seconds -5b. Right Arm 0 - No drift; arm holds 90 ( or 45) degrees for full 10 seconds -6a. Left Leg 0 - No drift; leg holds 30- degree position for full 5 seconds -6b. Right Leg 0 - No drift; leg holds 30- degree position for full 5 seconds -7. Limb Ataxia 0 - Absent -8. Sensory 0 - Normal; no sensory loss -9. Best Language 0 - No aphasia; normal -10. Dysarthria 0 - Normal -11. Extinction and Inattention 0 - No abnormality -Total 0 Query Text:A score of 0 is normal or asymptomatic. Total possible score is 42 . ED: Notify Physician for NIHSS increase by > / = 3 points. Inpatient: RN or Physician to activate a stroke alert for NIHSS increase of > / = 3 points. Coma Scale [Assess] -Eye Opening Spontaneous -Motor Obeys Commands -Verbal Oriented [Total] -Coma Scale Total 15
--- NOTE | 2025-01-16 13:45 | CASEMGMT ---
Social Work Per physician pt negative for stroke, therefore PHQ9 not completed. ASHLEY Alberts
[2025-01-17 00:55] VITALS: BP 122/55; PULSE 68; RESP 16; TEMP 36.6; O2SAT 92
[2025-01-17] MEDS: Magnesium Chloride 64 MG Delay Rel.Tablet 128 MG PO ×2 (05:31→14:21)
[2025-01-17] MEDS: Heparin Injection (Vial) 5,000 UNIT/ML VIAL 5000 UNIT SC ×2 (05:32→14:22)
[2025-01-17 05:35] VITALS: BP 151/85; PULSE 67; RESP 16; TEMP 36.7; O2SAT 93
[2025-01-17 05:54] LABS: Hematocrit 27.0 % (37-47); Hemoglobin 9.0 g/dL (12.0-15.0); Immature Granulocytes Count 0.030 X10^3/uL (0.0-0.0); Mean Corp Hgb Conc 33.3 g/dL (32-36); Mean Corpuscular Volume 89.7 fL (81-99); Mean Platelet Vol. 10.6 fl (6.2-12.0); NRBC Flagged by Analyzer 0 % (0-5); Platelet Count 332 K/mm3 (150-450); RBC Distribution Width CV 13.1 % (11.6-14.6); RBC Distribution Width SD 42.7 fl (35.1-43.9); Red Blood Count 3.01 M/mm3 (4.2-5.4); White Blood Count 6.4 K/mm3 (4.4-11.0)
[2025-01-17 06:09] LABS: Anion Gap 16 (5-15); BUN 26 mg/dL (4-19); BUN/Creat Ratio 7.2 RATIO (10-20); Calcium,Total 8.9 mg/dL (7.6-11.0); Carbon Dioxide 12.7 mmol/L (21.0-32.0); Chloride 111 mmol/L (98-108); Estimated Creatinine Clearance 17.20 ml/min (50-250); Glucose 70 mg/dL (70-99); Potassium 5.5 mmol/L (3.3-5.1)
[2025-01-17 10:06] VITALS: BP 133/69; PULSE 61; RESP 16; TEMP 36.8; O2SAT 94
--- NOTE | 2025-01-17 12:15 | NEURO.PNOTE ---
Assessment and Plan: Neuro Assessment/Plan CARLOS A COYLE, is a 64 F with a past medical history of essential hypertension, hyperlipidemia, hypothyroidism, CKD, who presents to [facility] ER with confusion. She went to sleep normal, woke up on the floor confused with her whole body aching. In the ER she was reportedly having R side numbness and facial droop, but she has no recollection of this and this has resolved by now and her exam is non-focal. MRI brain with no acute findings. EEG normal Presentation is highly suspicious for nocturnal seizures I discussed with patient in depth the implications of this seizure. Usually for a first time unprovoked seizure we don't start AEDs. However with Nocturnal seizures, depending on the situation, some patients maybe started on AEDs, because it is hard to tell whether the first nocturnal seizure is actually their first seizures, or just the first seizure that came to our attention. We discussed seizures precautions and driving precautions. 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 I informed her that she will need to report to her work. So far, she has had a nocturnal seizure, and unless she proves herself otherwise, we can further discuss the duration of restrictions/precautions when she follows in clinic. Patient opted to start on Medications. Given kidney status, will opt to start Vimpat 100 mg BID. Discussed [facility] Primary provider Dr. Rios regarding EKG, EKD with sinus with normal NH. She will follow up with neurology within the next month. Recommendations: - Start Vimpat 100 mg BID - follow up with neurology in one month. Patient was instructed not to drive, not to use power tools or operate heavy machinery, should not be on ladders and should not swim.? The patient should use the shower and not the bath. Likewise, they should refrain from any activity which could result in injury to themselves or others if they had a seizure or lost consciousness. These restrictions should continue for at least 6 months or as instructed by a doctor to do otherwise. The patient was informed that these restrictions would be documented in the medical record. I personally attended this patient and spent a total time of 45 minutes evaluating this patient including clinical assessment, review of chart, medical history imaging, and determining appropriate treatment and workup. Subject: Neurology Subjective No acute events over night Exam: Patient sitting in bed, alert oriented following command appropriately no focal findings on exam EEG Results Procedure Details EEG Procedure Details: CARLOS A COYLE is a 64 year old F with a past medical history of , who presents for evaluation of Electroencephalogram on DATE at TIME Objective Data Objective Data Vital Signs: Vital Signs Temp Pulse Resp BP Pulse Ox O2 Del Method O2 Flow Rate 98.2 F 61 16 133/69 H 94 Room Air 2 01/17/25 10:06 01/17/25 10:06 01/17/25 10:06 01/17/25 10:06 01/17/25 10:06 01/17/25 10:06 01/16/25 09:49 Oxygen Flow Rate (L/min) 2 Oxygen Delivery Method Room Air Weight: 91.8 kg Body Mass Index (BMI) 35.8 Intake & Output: Intake and Output for Last 24 Hours 01/15/25 01/16/25 01/17/25 23:59 23:59 23:59 Intake Total 1384.00 / 1384.00 500 / 500 Balance 1384.00 / 1384.00 500 / 500 Lab / Micro Data 01/17/25 04:58 01/17/25 04:58 Labs: Laboratory Results - last 24 hr 01/15/25 21:58: POC Glucose 106 01/16/25 02:04: Ionized Calcium 1.06 L 01/17/25 04:58: WBC 6.4, RBC 3.01 L, Hgb 9.0 L, Hct 27.0 L, MCV 89.7, MCH 29.9, MCHC 33.3, RDW Std Deviation 42.7, RDW Coeff of Beatriz 13.1, Plt Count 332, MPV 10.6, Immature Gran % (Auto) 0.500, Neut % (Auto) 67.2, Lymph % (Auto) 24.5, Noble % (Auto) 6.1, Eos % (Auto) 1.1, Baso % (Auto) 0.6, Absolute Neuts (auto) 4.3, Absolute Lymphs (auto) 1.56, Nucleated RBC % 0, Sodium 140, Potassium 5.5 H, Chloride 111 H, Carbon Dioxide 12.7 L, Anion Gap 16 H, BUN 26 H, Creatinine 3.65 H, Estim Creat Clear Calc 17.20 L, Est GFR (MDRD) Non-Af 13 L, BUN/Creatinine Ratio 7.2 L, Glucose 70, Calcium 8.9 Radiography Diagnostic Testing: Radiology Impression Carotid Duplex 01/16/25 01:53 Interpretation Summary Mild (<50%) stenosis right extracranial internal carotid. Moderate (50-69%) stenosis left extracranial internal carotid. Patent and antegrade vertebrals bilaterally. Ordering Physician: Brian Washburn Performed By: Alfa Tsang T Echocardiogram 01/16/25 01:53 Interpretation Summary Mild concentric left ventricular hypertrophy. The left ventricular ejection fraction is 65 %. Stage 1 diastolic dysfunction. The left atrium is mildly enlarged. Bubble contrast study is negative for PFO/ASD. Mild tricuspid valve insufficiency. Calcified aortic valve. Moderate aortic valve stenosis. Mean peak gradient 24 mmHg. Mild aortic valve regurgitation. Ordering Physician: Brian Washburn Performed By: Keven Ashton RCS S NIHSS Nursing Documentation NIHSS Nursing Documentation: NIHSS: Ischemic Stroke/TIA Start: 01/16/25 02:26 Text: For PCU Patients: NIH and Neuro Check every 4 Status: Complete hours, PRN and with change in RN caregiver. Freq: [id number] Protocol: Activity Type Activity Date Activity User E-sign Co-sign Detail Recorded Client Recorded Date Recorded By Document 01/16/25 09:49 [id number] 01/16/25 09:54 01/16/25 09:49 NIH Stroke Scale [NIHSS] A score of 0 is normal or asymptomatic . Total possible score is 42. Inpatient: RN or Physician to activate a stroke alert for onset of new stroke symptoms or with NIHSS increase >/= 3 points. Following change in neurological status, NIHSS will be performed per physician order or more frequently PRN. -1a. Level of Consciousness 0 - Alert; keenly responsive -1b. LOC Questions 0 - Answers BOTH questions correctly -1c. LOC Commands 0 - Performs BOTH tasks correctly -2. Best Gaze 0 - Normal -3. Visual 0 - No visual loss -4. Facial Palsy 0 - Normal symmetrical movements -5a. Left Arm 0 - No drift; arm holds 90 ( or 45) degrees for full 10 seconds -5b. Right Arm 0 - No drift; arm holds 90 ( or 45) degrees for full 10 seconds -6a. Left Leg 0 - No drift; leg holds 30- degree position for full 5 seconds -6b. Right Leg 0 - No drift; leg holds 30- degree position for full 5 seconds -7. Limb Ataxia 0 - Absent -8. Sensory 0 - Normal; no sensory loss -9. Best Language 0 - No aphasia; normal -10. Dysarthria 0 - Normal -11. Extinction and Inattention 0 - No abnormality -Total 0 Query Text:A score of 0 is normal or asymptomatic. Total possible score is 42 . ED: Notify Physician for NIHSS increase by > / = 3 points. Inpatient: RN or Physician to activate a stroke alert for NIHSS increase of > / = 3 points. Coma Scale [Assess] -Eye Opening Spontaneous -Motor Obeys Commands -Verbal Oriented [Total] -Coma Scale Total 15
--- NOTE | 2025-01-17 13:40 | DCINST_ITS ---
Discharge Instructions DC O2, CPAP, BIPAP needs Home O2 Discharge instructions: No Dressing / Incision Discharge Activity: - (seizure precautions) Dressing / Incision Call your doctor if you observe: Fever of 101 or Higher, Shortness of breath, Dizziness, Fainting spells, Swelling in the ankles, Chest pain and Increased palpitations (irregular heartbeat) Follow Up Care Test Results: Test results from this visit will be discussed in further detail at your follow- up appointment, if applicable. Discharge Plan Admission Admit Date/Time: 01/16/25 01:48 Attending Provider: Gabriel Rios Primary Care Provider: Monster Freire Consulting Providers: Ricco Fontaine; Bonnie Alonso; Cyndee Roy; Tamiko Holden; July Sanchez; Arnulfo Pinon; Shanika See; Louis Quintero; Aleksander Baez; Rohan Cornell; Mouna Heaton; Karen Stack; Kashif Arteaga; Surekha Blount; Beckie Gamboa; Esther Martinez; Maurizio Wong; Maribeth Beard; Dusty Bansal; Richa Chavez; Riaz Hagen; Brian Washburn; Melissa Barillas; Rogelio Bobby; Sarah Levine; JUAN ANTONIO BENAVIDES; Brandyn Betts; Arminda Carballo Instructions Patient Instructions: Safety During a Seizure, ED Seizure New Onset Unk Cause Ch, ED Seizure New [facility] Adult Discharge Orders/Prescriptions Prescriptions: New lacosamide 100 mg tablet 100 mg PO BID 30 Days Qty: 60 0RF pravastatin 20 mg Tablet 20 mg PO QHS 30 Days Qty: 30 0RF Continued magnesium oxide 400 MG tablet 400 mg PO TID levothyroxine 50 MCG tablet 50 mcg PO DAILY Hydrocil Instant Packet 1 packet PO DAILY PRN (Reason: constipation) Rx Instructions: mix into at least 8 oz of water or juice before administering acetaminophen 500 mg tablet 1,000 mg PO Q6H PRN (Reason: pain) ergocalciferol (vitamin D2) 1,250 mcg (50,000 unit) capsule 1,250 mcg PO .COMPLEX Rx Instructions: 1,250 mcg orally EVERY OTHER TUESDAY; omeprazole 40 mg capsule,delayed release(DR/EC) 40 mg PO DAILY PRN (Reason: heartburn) amlodipine 10 mg tablet 10 mg PO DAILY ondansetron 4 mg tablet,disintegrating 4 mg PO Q8H PRN (Reason: nausea and vomiting) sodium bicarbonate 650 mg tablet 650 mg PO 4X/DAY tramadol 50 mg tablet 50 mg PO Q6H PRN (Reason: pain) 3 Days Qty: 12 0RF ondansetron 4 mg tablet,disintegrating 4 mg PO Q6H PRN (Reason: nausea and vomiting) Qty: 20 0RF hyoscyamine sulfate 0.125 mg tablet 0.125 mg PO Q6H PRN (Reason: dyspepsia) 5 Days Qty: 20 0RF Discontinued rosuvastatin 20 mg tablet 20 mg PO DAILY amoxicillin-pot clavulanate 875-125 mg tablet 1 tab PO Q12H 7 Days Qty: 14 0RF Referrals / Follow Up: Aris Vidal MD [Non-Staff -Ordering Privileges, Neurology] - Within 1 Month Monster Freire MD [Primary Care Provider, Medical] - Within 1 Week Disposition Disposition (needs filled in before D/C Order can be placed): Home, Self Care
[2025-01-17 14:16] VITALS: BP 141/68; PULSE 62; RESP 16; TEMP 36.8; O2SAT 98
--- NOTE | 2025-01-17 14:16 | DS.PCM_ITS ---
Providers Date of Admission: 01/16/25 Primary Care Physician: Dr. Monster Freire MD Consultations 01/16/25 02:26 Consult: Tele-Neurology Routine Consulting Provider: [facility] Reason for Consult: Acute Ischemic Stroke/TIA EMERGENT Consult: No MD Notified: Yes Date Notified: 01/16/25 Time Notified: 01:49 Method of Notification: ED Physician Initiated Nursing Unit Staff Notify [facility] of Tele-Neurology Consult: Yes Reason For Visit: SUSPECTED CVA Diagnosis Discharge Diagnosis (1) CVA (cerebral vascular accident): Status: Acute Code(s): I63.9 - Cerebral infarction, unspecified Qualifiers: CVA mechanism: unspecified Qualified Code(s): I63.9 - Cerebral infarction, unspecified (2) Acute alteration in mental status: Status: Acute Code(s): R41.82 - Altered mental status, unspecified (3) Facial droop: Status: Acute Code(s): R29.810 - Facial weakness (4) Numbness: Status: Acute Code(s): R20.0 - Anesthesia of skin (5) Leukocytosis: Status: Acute Code(s): D72.829 - Elevated white blood cell count, unspecified Qualifiers: Leukocytosis type: unspecified Qualified Code(s): D72.829 - Elevated white blood cell count, unspecified (6) Kidney disease, chronic, stage V (GFR under 15 ml/min): Status: Chronic Code(s): N18.5 - Chronic kidney disease, stage 5 (7) Tobacco abuse: Status: Acute Code(s): Z72.0 - Tobacco use (8) Obesity (BMI 30-39.9): Status: Acute Code(s): E66.9 - Obesity, unspecified (9) HTN (hypertension): Status: Chronic Code(s): I10 - Essential (primary) hypertension Qualifiers: Hypertension type: unspecified Qualified Code(s): I10 - Essential (primary) hypertension (10) High cholesterol: Status: Acute Code(s): E78.00 - Pure hypercholesterolemia, unspecified Medications at Discharge Home Medications levothyroxine 50 mcg tablet 50 mcg PO DAILY 11/22/17 magnesium oxide 400 mg (241.3 mg magnesium) tablet 400 mg PO TID 11/22/17 acetaminophen 500 mg tablet 1,000 mg PO Q6H PRN pain 02/02/24 amlodipine 10 mg tablet 10 mg PO DAILY 02/02/24 ergocalciferol (vitamin D2) 1,250 mcg (50,000 unit) capsule 1,250 mcg PO .COMPLEX 02/02/24 hyoscyamine sulfate 0.125 mg tablet 0.125 mg PO Q6H PRN dyspepsia 5 days #20 tabs 02/02/24 omeprazole 40 mg capsule,delayed release 40 mg PO DAILY PRN heartburn 02/02/24 ondansetron 4 mg disintegrating tablet 4 mg PO Q6H PRN nausea and vomiting #20 tabs 02/02/24 ondansetron 4 mg disintegrating tablet 4 mg PO Q8H PRN nausea and vomiting 02/02/24 psyllium (Hydrocil Instant oral packet) 1 packet PO DAILY PRN constipation 02/02/24 sodium bicarbonate 650 mg tablet 650 mg PO 4X/DAY 02/02/24 tramadol 50 mg tablet 50 mg PO Q6H PRN pain 3 days #12 tabs 02/02/24 lacosamide 100 mg tablet 100 mg PO BID 30 days #60 tabs 01/17/25 pravastatin 20 mg tablet 20 mg PO QHS 30 days #30 tabs 01/17/25 Hospital Course Operations None Procedures Electroencephalogram Summary of Care Provided Minutes Spent on Discharge: 35 Hospital Course: Per HPI: CARLOS A COYLE, is a 64 F with a past medical history of essential hypertension; on amlodipine, hyperlipidemia; previously on rosuvastatin which was stopped due to muscle pain, hypothyroidism; on levothyroxine, obesity (class II); with BMI of 37.1 this admission, CKD; stage V with patient currently holding off on HD, chronic tobacco abuse, history of colon polyps (2021), GERD with dyspepsia; on omeprazole daily prn plus hyoscyamine sulfate q. 6 hours prn and OA; on prn tramadol q. 6 hours who presents to [facility] ER complaining of Right-sided numbness and confusion. Ms. Coyle reports she works third shift and returned home after work at ~8:00 AM and then went to bed normal at that time. She then woke up on the floor net to her bed at ~8:00 PM with Right-sided facial droop, numbness, mildly slurred speech and confusion. She also admits to associated headache with nausea and vomiting with EMS treating her with ondansetron ODT in the field but she does not recall any other details with obvious memory impairment - as she knows her age - but not the month. She denies a history of falling out of bed or CVA. She denies related visual changes, chest pain, palpitations, heart racing, LE edema, SOB, abdominal pain, constipation, diarrhea, blood in stools, blood in vomitus, dysuria, hematuria, rash or recent illness/hospitalization. In the ER she underwent a CT scan of the brain without contrast that revealed no acute intracranial abnormality complicated by Leukocytosis of 13.2K present on admission with no overt signs of infection due to suspected acute stress response in the setting of suspected CVA and she was then admitted to the PCU under observation status for ongoing care for a stay that is expected to be less than 2 midnights. Hospital Course: 1. CVA versus seizure?64-year-old female presented to the hospital after she woke up on the floor next to her bed with a right facial droop and numbness with slurred speech and confusion. 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 She states that she woke up at 8 PM on the floor next to her bed. Urine drug screen was unremarkable and MRI of the brain showed small vessel ischemia but no signs of an acute stroke. Carotid Dopplers were unremarkable and echocardiogram demonstrated an EF of 65% with stage I diastolic dysfunction with no PFO. Neurology on evaluation was concern for the possibility of a seizure disorder so they requested an EEG which was was performed last evening which did not demonstrate any seizures however the concern for seizure was significant enough that after discussing the situation with Mrs. Coyle, they elected to proceed with Vimpat 100 mg p.o. twice daily. EKGs are unremarkable with no signs of heart block therefore we will give her her first dose now prior to discharge. I discussed with her at length seizure precautions including no operation of heavy machinery and no driving until she is seizure-free. I recommend that she follow-up with her primary care doctor in 3 to 5 days and I also have her referred to local neurology for monitoring and evaluation of her Vimpat and seizure disorder. I discussed with her the plan for discharge and she expressed understanding of the risks and benefits of going home and would like to go home today. Given her small vessel ischemia on MRI I did elect to trial her on pravastatin which she had been started on while here in the hospital. She has previously had myalgias with Crestor so we will start her on pravastatin 20 mg nightly. 2. Chronic kidney disease stage V not wanting to proceed with dialysis, anemia of chronic disease, essential hypertension, hyperlipidemia, hypothyroidism, GERD are all chronic medical conditions which complicate her care. Her home medications were continued where appropriate Physical Exam Narrative general: Alert, Oriented x3, Cooperative, No apparent distress HEENT: Atraumatic, PERRLA, EOMI, Normocephalic Oral: Moist Mucosa Neck: Supple, No JVD Lungs: diminished, Normal air movement, No rhonchi, No wheeze, No rales Cardiovascular: Regular rate, Regular Rhythm, Normal S1, Normal S2, No murmurs Abdomen: Soft, Non Tender, Non-Distended, No Hepato-splenomegaly Extremities: No edema, Capillary Refill Less than 3 Seconds Skin: No rashes, No breakdown Musculoskeletal: No Tenderness to Palpation of Joints or Extremities Neurological: No focal neurological deficits, moves all extremities, sensation intact Psych/Mental Status: Normal Affect, Appropriate Weight / BMI Weight Weight: 202 lb 6.15 oz Body Mass Index (BMI) 35.8 ABG / Lab / Microbiology Data 01/17/25 04:58 01/17/25 04:58 Laboratory: Laboratory Results - last 24 hr 01/15/25 21:58: POC Glucose 106 01/16/25 02:04: Ionized Calcium 1.06 L 01/17/25 04:58: WBC 6.4, RBC 3.01 L, Hgb 9.0 L, Hct 27.0 L, MCV 89.7, MCH 29.9, MCHC 33.3, RDW Std Deviation 42.7, RDW Coeff of Beatriz 13.1, Plt Count 332, MPV 10.6, Immature Gran % (Auto) 0.500, Neut % (Auto) 67.2, Lymph % (Auto) 24.5, Sheridan % (Auto) 6.1, Eos % (Auto) 1.1, Baso % (Auto) 0.6, Absolute Neuts (auto) 4.3, Absolute Lymphs (auto) 1.56, Nucleated RBC % 0, Sodium 140, Potassium 5.5 H , Chloride 111 H, Carbon Dioxide 12.7 L, Anion Gap 16 H, BUN 26 H, Creatinine 3.65 H, Estim Creat Clear Calc 17.20 L, Est GFR (MDRD) Non-Af 13 L, B UN/Creatinine Ratio 7.2 L, Glucose 70, Calcium 8.9 D/C Instructions Call your doctor if you observe: Fever of 101 or Higher, Shortness of breath, Dizziness, Fainting spells, Swelling in the ankles, Chest pain and Increased palpitations (irregular heartbeat) DC O2, CPAP, BIPAP Needs Home O2 Discharge instructions: No Meaningful Use Info Meaningful Use Meaningful Use Diagnoses (Choose all that apply): None applicable Discharge Plan Admission Admit Date/Time: 01/16/25 01:48 Attending Provider: Gabriel Rios Primary Care Provider: Monster Freire Consulting Providers: Ricco Fontaine; Bonnie Alonso; Cyndee Roy; Tamiko Holden; July Sanchez; Arnulfo Pinon; Shanika See; Louis Quintero; Aleksander Baez; Rohan Cornell; Mouna Heaton; Karen Stack; Kashif Arteaga; Surekha Blount; Beckie Gamboa; Esther Martinez; Maurizio Wong; Maribeth Beard; Dusty Bansal; Richa Chavez; Riaz Hagen; Brian Washburn; Melissa Barillas; Rogelio Bobby; Sarah Levine; JUAN ANTONIO BENAVIDES; Brandyn Betts; Arminda Carballo Instructions Patient Instructions: Safety During a Seizure, ED Seizure New Onset Unk Cause Ch, ED Seiz[place] [facility] [place] Discharge Orders/Prescriptions Prescriptions: New lacosamide 100 mg tablet 100 mg PO BID 30 Days Qty: 60 0RF pravastatin 20 mg Tablet 20 mg PO QHS 30 Days Qty: 30 0RF Continued magnesium oxide 400 MG tablet 400 mg PO TID levothyroxine 50 MCG tablet 50 mcg PO DAILY Hydrocil Instant Packet 1 packet PO DAILY PRN (Reason: constipation) Rx Instructions: mix into at least 8 oz of water or juice before administering acetaminophen 500 mg tablet 1,000 mg PO Q6H PRN (Reason: pain) ergocalciferol (vitamin D2) 1,250 mcg (50,000 unit) capsule 1,250 mcg PO .COMPLEX Rx Instructions: 1,250 mcg orally EVERY OTHER TUESDAY; omeprazole 40 mg capsule,delayed release(DR/EC) 40 mg PO DAILY PRN (Reason: heartburn) amlodipine 10 mg tablet 10 mg PO DAILY ondansetron 4 mg tablet,disintegrating 4 mg PO Q8H PRN (Reason: nausea and vomiting) sodium bicarbonate 650 mg tablet 650 mg PO 4X/DAY tramadol 50 mg tablet 50 mg PO Q6H PRN (Reason: pain) 3 Days Qty: 12 0RF ondansetron 4 mg tablet,disintegrating 4 mg PO Q6H PRN (Reason: nausea and vomiting) Qty: 20 0RF hyoscyamine sulfate 0.125 mg tablet 0.125 mg PO Q6H PRN (Reason: dyspepsia) 5 Days Qty: 20 0RF Discontinued rosuvastatin 20 mg tablet 20 mg PO DAILY amoxicillin-pot clavulanate 875-125 mg tablet 1 tab PO Q12H 7 Days Qty: 14 0RF Referrals / Follow Up: Aris Vidal MD [Non-Staff -Ordering Privileges, Neurology] - Within 1 Month Monster Freire MD [Primary Care Provider, Medical] - Within 1 Week Disposition Disposition (needs filled in before D/C Order can be placed): Home, Self Care Charges/Coding Visit Charges Inpatient E&M: 51650 Disch Hosp >30min
--- NOTE | 2025-01-17 15:04 | CASEMGMT ---
Patient has order for discharge. RN CM in to discuss needs or help at discharge. Patient independent in the room. Patient denies needs or help at discharge. Patient had no further questions or concerns.
--- NOTE | 2025-01-17 15:44 | PHA.DC_ITS ---
Pharmacy [facility] has performed discharge medication counseling for this patient. The patient was counseled on the following discharge medications and changes in medications for homegoing review. - Lacosamide 100 mg tablet, Pravastatin 20 mg tablet The Reason for Use, instructions for use, and potential side effects were reviewed for all new medications. The patient's questions regarding all of their medications were answered. The patient was able to verbally demonstrate an understanding of their discharge medications. Medications at Discharge Home Medications levothyroxine 50 mcg tablet 50 mcg PO DAILY 11/22/17 magnesium oxide 400 mg (241.3 mg magnesium) tablet 400 mg PO TID 11/22/17 acetaminophen 500 mg tablet 1,000 mg PO Q6H PRN pain 02/02/24 amlodipine 10 mg tablet 10 mg PO DAILY 02/02/24 ergocalciferol (vitamin D2) 1,250 mcg (50,000 unit) capsule 1,250 mcg PO .COMPLEX 02/02/24 hyoscyamine sulfate 0.125 mg tablet 0.125 mg PO Q6H PRN dyspepsia 5 days #20 tabs 02/02/24 omeprazole 40 mg capsule,delayed release 40 mg PO DAILY PRN heartburn 02/02/24 ondansetron 4 mg disintegrating tablet 4 mg PO Q6H PRN nausea and vomiting #20 tabs 02/02/24 ondansetron 4 mg disintegrating tablet 4 mg PO Q8H PRN nausea and vomiting 02/02/24 psyllium (Hydrocil Instant oral packet) 1 packet PO DAILY PRN constipation 02/02/24 sodium bicarbonate 650 mg tablet 650 mg PO 4X/DAY 02/02/24 tramadol 50 mg tablet 50 mg PO Q6H PRN pain 3 days #12 tabs 02/02/24 lacosamide 100 mg tablet 100 mg PO BID 30 days #60 tabs 01/17/25 pravastatin 20 mg tablet 20 mg PO QHS 30 days #30 tabs 01/17/25
[2025-01-17 15:50] VITALS: BMI 35.8
== END 2025-01-17 15:55 | disposition home or self-care (01) ==
LOC: ED 01-16 01:03 → PCU 01-16 01:54
PROVIDERS: Admitting Provider Internal Medicine; Emergency Provider Emergency Medicine; PCP Family Medicine; Visit Provider Family Medicine
DX: R41.82 Altered mental status, unspecified (principal); N18.5 Chronic kidney disease, stage 5; I12.0 Hypertensive chronic kidney disease with stage 5 chronic kidney disease or end stage renal disease; E03.9 Hypothyroidism, unspecified; K21.9 Gastro-esophageal reflux disease without esophagitis; E66.812 Obesity, class 2; Z68.37 Body mass index [BMI] 37.0-37.9, adult; I67.82 Cerebral ischemia; E78.00 Pure hypercholesterolemia, unspecified; D63.1 Anemia in chronic kidney disease; R47.81 Slurred speech; D72.829 Elevated white blood cell count, unspecified; Z79.890 Hormone replacement therapy; R79.89 Other specified abnormal findings of blood chemistry; E87.20 Acidosis, unspecified; R29.810 Facial weakness; R20.2 Paresthesia of skin; Z79.899 Other long term (current) drug therapy; R94.31 Abnormal electrocardiogram [ECG] [EKG]; R73.9 Hyperglycemia, unspecified; I08.3 Combined rheumatic disorders of mitral, aortic and tricuspid valves; I65.23 Occlusion and stenosis of bilateral carotid arteries; F17.200 Nicotine dependence, unspecified, uncomplicated
CPT/HCPCS: 36415; 70450; 70551; 71046; 80048; 80053; 80061; 80307; 81001; 82077; 82330; 82962; 83036; 83605; 83735; 84100; 84443; 84484; 85025; 85610; 85730; 87040; 92507; 92523; 93005; 93306; 93880; 94762; 95819; 96365; 96366; 96372; 97162; 97166; 97802; 99221; 99285; P9612; Q9957; A4216; G0378

== ENCOUNTER → 2025-02-11 | Outpatient (CLI) | payer BC, SELFPAY ==
[2025-02-11 12:29] LABS: Ammonia 15.0 umol/L (11-51)
[2025-02-11 12:57] LABS: AST(SGOT) 9 U/L (<=31); Alanine Aminotransfer ALT/SGPT 5 U/L (<=34); Albumin, Serum 4.1 g/dL (3.4-4.8); Alkaline Phosphatase 156 U/L (35-104); Bilirubin, Direct 0.11 mg/dL (0.00-0.30); Globulin 2.7 g/dL (2.2-4.2)
[2025-02-11 13:42] LABS: Magnesium 0.8 mg/dL (1.5-2.2)
== END | disposition home or self-care (01) ==
PROVIDERS: PCP Family Medicine
DX: R56.9 Unspecified convulsions (principal); E83.42 Hypomagnesemia
CPT/HCPCS: 36415; 80076; 82140; 83735

== ENCOUNTER 2025-02-26 05:52 | Emergency (ER) | payer BC, SELFPAY ==
[2025-02-26 05:55] VITALS: BP 162/79; PULSE 72; RESP 16; TEMP 36.4; O2SAT 99; BMI 37.0
[2025-02-26 06:31] LABS: Hematocrit 29.8 % (37-47); Hemoglobin 9.7 g/dL (12.0-15.0); Immature Granulocytes Count 0.050 X10^3/uL (0.0-0.0); Mean Corp Hgb Conc 32.6 g/dL (32-36); Mean Corpuscular Volume 89.8 fL (81-99); Mean Platelet Vol. 10.4 fl (6.2-12.0); NRBC Flagged by Analyzer 0 % (0-5); Platelet Count 390 K/mm3 (150-450); RBC Distribution Width CV 13.0 % (11.6-14.6); RBC Distribution Width SD 42.5 fl (35.1-43.9); Red Blood Count 3.32 M/mm3 (4.2-5.4); White Blood Count 10.3 K/mm3 (4.4-11.0)
[2025-02-26] MEDS: 0.9% Normal Saline (500mL Bag) 500 ML 999 ML IV (06:33)
[2025-02-26 06:41] LABS: Mucous, Urine 0 SEEN /hpf (<or=2+); Red Blood Cells-Urine 0 SEEN /hpf (0-5)
[2025-02-26 06:42] LABS: Color, Urine Yellow (Yellow); Glucose, Dipstick Normal (Normal); Ketone-Dipstick Negative (Negative); Leukocyte Esterase-Dipstick Negative /ul (Negative); Nitrite-Dipstick Negative (Negative); Occult Blood-Urine 10 /ul (Negative); Protein-Dipstick 100 mg/dl (Negative); Specific Gravity, Urine 1.010 (1.002-1.030); Urine Bilirubin Dipstick Negative (Negative)
[2025-02-26 06:56] LABS: Squamous Epithelial Cells - UA 0-5 SEEN /hpf (5-10)
[2025-02-26 06:58] LABS: Lipase 32 U/L (13-75); Magnesium 1.6 mg/dL (1.5-2.2)
[2025-02-26 06:59] LABS: AST(SGOT) 11 U/L (<=31); Alanine Aminotransfer ALT/SGPT < 5 U/L (<=34); Albumin, Serum 4.0 g/dL (3.4-4.8); Alkaline Phosphatase 170 U/L (35-104); Anion Gap 15 (5-15); BUN 34 mg/dL (4-19); BUN/Creat Ratio 7.4 RATIO (10-20); Bilirubin, Direct 0.12 mg/dL (0.00-0.30); Calcium,Total 9.7 mg/dL (7.6-11.0); Carbon Dioxide 18.3 mmol/L (21.0-32.0); Chloride 102 mmol/L (98-108); Estimated Creatinine Clearance 13.99 ml/min (50-250); Globulin 2.8 g/dL (2.2-4.2); Glucose 132 mg/dL (70-99); Potassium 4.9 mmol/L (3.3-5.1)
[2025-02-26 07:18] VITALS: BP 161/62; PULSE 66; RESP 14; O2SAT 93
--- NOTE | 2025-02-26 07:29 | EX.ED.DYSGE1 ---
HPI History of Present Illness Chief Complaint: Abd Pain Informant: patient and spouse/S.O. Narrative Narrative: Patient is a 64-year-old female with history of chronic kidney disease not currently on dialysis. She also has hypertension hyperlipidemia. She has been diagnosed with diverticulitis in the past. She states has been 2 or 3 days since she has had a bowel movement which is abnormal for her and she now has pain in the left lower quadrant. She has concern for repeat diverticulitis and secondary to this comes to the hospital for evaluation. [facility] Medical History (Updated 02/26/25 @ 23:[address] Sree Duong, DO) Anemia in chronic kidney disease (CKD) Chronic kidney disease Gaspar's esophagus with dysplasia, unspecified Hypocalcemia High cholesterol GERD (gastroesophageal reflux disease) Hypothyroidism HTN (hypertension) Home Medications ?Medication ?Instructions ?Recorded ?Last Taken ?Type levothyroxine 50 mcg tablet 50 mcg PO DAILY 11/22/17 02/01/24 History acetaminophen 500 mg tablet 1,000 mg PO Q6H PRN pain 02/02/24 02/02/24 History amlodipine 10 mg tablet 10 mg PO DAILY 02/02/24 02/01/24 History ergocalciferol (vitamin D2) 1,250 1,250 mcg PO .COMPLEX 02/02/24 01/20/24 History mcg (50,000 unit) capsule hyoscyamine sulfate 0.125 mg tablet 0.125 mg PO Q6H PRN dyspepsia 5 02/02/24 Unknown Rx days #20 tabs omeprazole 40 mg capsule,delayed 40 mg PO DAILY PRN heartburn 02/02/24 02/01/24 History release ondansetron 4 mg disintegrating 4 mg PO Q8H PRN nausea and vomiting 02/02/24 02/02/24 History tablet sodium bicarbonate 650 mg tablet 1,000 mg PO TID 02/02/24 02/02/24 History ezetimibe 10 mg tablet 10 mg PO QDAY 02/07/25 Unknown History lacosamide 100 mg tablet 100 mg PO BID #60 tabs 02/19/25 Unknown Rx magnesium oxide 1,300 mg PO TID 02/26/25 Unknown History metronidazole 500 mg tablet 500 mg PO TID 10 days #30 tabs 02/26/25 Unknown Rx rifaximin 550 mg tablet (Xifaxan) 550 mg PO TID 10 days #30 tabs 02/26/25 Unknown Rx tramadol 50 mg tablet 50 mg PO Q6H PRN pain 3 days #12 02/26/25 Unknown Rx tabs Allergy/AdvReac Type Severity Reaction Status Date / Time codeine Allergy Shortness Verified 02/26/25 05:57 of breath hydromorphone (From Dilaudid) Allergy Shortness Verified 02/26/25 05:57 of breath morphine Allergy Shortness Verified 02/26/25 05:57 of breath moxifloxacin (From Avelox) Allergy Shortness Verified 02/26/25 05:57 of breath oxycodone (From Percocet) Allergy Shortness Verified 02/26/25 05:57 of breath Penicillins Allergy Shortness Verified 02/26/25 05:57 of breath Dneemwe-VFA-XlT Reductase AdvReac Pain in Verified 02/26/25 05:57 Inhibitor joints Family History (Updated 02/07/25 @ 13:47 by Juana Albrecht) Mother , 71 Kidney disease Heart disease Hypertension Myocardial infarction CVA (cerebral vascular accident) Father , 61 Diabetes Kidney disease Surgical History H/O: hysterectomy Hx of cholecystectomy Social History (Updated 02/07/25 @ 13:48 by Juana Albrecht) household members: none current occupational status: employed current occupation: [employer] pets and animals: No Smoking Status: Current every day smoker tobacco type: cigarettes alcohol intake: never caffeine: Yes Type: carbonated beverages Number of servings: 1 and coffee Number of servings: 2 do you feel safe at home: Yes ROS ROS ED Constitutional Constitutional ED: Denies chills or fever(s) ENT ENT ED: Denies sore throat Cardiovascular Cardiovascular: Denies chest pain Respiratory/Chest Respiratory/Chest: Denies cough or dyspnea Gastrointestinal Gastrointestinal: Reports abdominal pain and constipation; Denies diarrhea, nausea or vomiting Genitourinary Genitourinary ED: Denies dysuria Musculoskeletal Musculoskeletal: Denies back pain or myalgias Integumentary Denies rash Neurologic Neurologic: Denies headache(s) Hematologic/Lymphatic Hematologic/Lymphatic: Denies easy bleeding or easy bruising EXAM Physical Exam Const Vital Signs: 02/26/25 05:55 02/26/25 07:18 02/26/25 07:41 Temperature 97.5 F L 98 F Temperature Source Oral Pulse Rate 72 66 64 Respiratory Rate 16 14 14 Blood Pressure 162/79 H 161/62 H 172/83 H Blood Pressure Mean 106 95 112 Pulse Ox 99 93 93 Oxygen Delivery Method Room Air Positive well nourished, well developed and obese General Appearance ED: well developed Nutritional Appearance: obese HEENT HEENT Narrative: Normocephalic atraumatic No tongue or lip swelling no oral lesions no airway edema or compromise; no secondary findings in the posterior pharynx to suggest infection Eyes PERRL and EOMs intact bilaterally General Eye ED: Yes pale conjunctiva; Negative for scleral icterus Neck supple Resp normal respiratory effort and clear to auscultation bilaterally Cardio regular rate and regular rhythm Rate: other Other Details: Radial and carotid pulses are equal and symmetric GI non-distended and no masses GI Narrative: Abdomen is soft and nondistended with hypoactive bowel sounds Patient has pain with palpation in the left lower quadrant without voluntary guarding or rigidity No pulsatile mass or fluid wave No peritoneal signs Auscultation: hypoactive bowel sounds Palpation: soft Back/Spine no CVA tenderness Extremity normal to inspection Neuro oriented x3, CN's II-XII intact bilaterally and no sensory deficits noted Sensorium / Orientation: alert Motor Exam: strength 5/5 throughout Psych mental status grossly normal Skin no rashes or lesions noted General Skin Exam: Negative for jaundice MDM MDM MDM Narrative Medical decision making narrative: Patient arrived to the ER hypertensive but has a past medical history of this. With report of constipation and pain in the left lower quadrant patient most likely has developing diverticulitis especially as she reports a history of this. In order to ensure this is not a typical presentation for UTI or potential kidney stone or pyelonephritis I did elect to perform basic laboratory studies with UA. At this time her abdomen is nonsurgical and I do not feel the need for a CT scan. The labs reveal no leukocytosis or clinically significant elevation to her liver enzymes. Her lipase is normal going against pancreatitis. Urine sample shows no sign of infection going against UTI or pyelonephritis and there is no blood going against kidney stone. Patient's creatinine is elevated at 4.57 but chart review reveals that this is near her baseline. She is also anemic with hemoglobin of 9.7 but chart review reveals this is baseline as well. At this time with her history of constipation and left lower quadrant pain and previous diagnosis of diverticulitis I feel this is the most likely reason for her symptoms. Based on her vitals exam and labs this would be a simple diverticulitis as I have low concern for abscess or perforation. Therefore I will simply start the patient on Flagyl and Xifaxan which she has been on previously for it and states this helped and she is otherwise safe for discharge. History & Record Review Discussion w/independent historian: Patient and Significant other Additional record(s) reviewed:: Prior labs Lab Data Attestation: I reviewed the patient's lab results. Labs: Laboratory Results - last 24 hr 02/26/25 02/26/25 06:04 06:30 WBC 10.3 RBC 3.32 L Hgb 9.7 L Hct 29.8 L MCV 89.8 MCH 29.2 MCHC 32.6 RDW Std Deviation 42.5 RDW Coeff of Beatriz 13.0 Plt Count 390 MPV 10.4 Immature Gran % (Auto) 0.500 Neut % (Auto) 75.6 H Lymph % (Auto) 16.4 L Patrick % (Auto) 5.2 Eos % (Auto) 1.6 Baso % (Auto) 0.7 Absolute Neuts (auto) 7.8 H Absolute Lymphs (auto) 1.68 Nucleated RBC % 0 Sodium 135 Potassium 4.9 Chloride 102 Carbon Dioxide 18.3 L Anion Gap 15 BUN 34 H Creatinine 4.57 H Estim Creat Clear Calc 13.99 L Est GFR (MDRD) Non-Af 10 L BUN/Creatinine Ratio 7.4 L Glucose 132 H Calcium 9.7 Phosphorus 5.4 H Magnesium 1.6 Total Bilirubin 0.26 Direct Bilirubin 0.12 AST 11 ALT < 5 Alkaline Phosphatase 170 H Total Protein 6.9 Albumin 4.0 Globulin 2.8 Lipase 32 Urine Color Yellow Urine Clarity Clear Urine pH 7.0 Ur Specific [place] 1.010 Urine Protein 100 H Urine Glucose (UA) Normal Urine Ketones Negative Urine Occult Blood 10 H Urine Nitrite Negative Urine Bilirubin Negative Urine Urobilinogen Normal Ur Leukocyte Esterase Negative Urine RBC 0 SEEN Urine WBC 0-5 SEEN Ur Squamous Epith Cells 0-5 SEEN Urine Bacteria 0 SEEN Urine Mucus 0 SEEN Discharge Plan Triage Chief Complaint: Abd Pain ED Provider: Sree Duong Dx/Rx/DC Orders Clinical Impression: Chronic renal failure, Diverticulitis, HTN (hypertension), Hyperlipidemia Instructions: Diverticulitis Dc Prescriptions: New metronidazole 500 mg tablet 500 mg PO TID 10 Days Qty: 30 0RF Xifaxan 550 mg tablet 550 mg PO TID 10 Days Qty: 30 0RF tramadol 50 mg tablet 50 mg PO Q6H PRN (Reason: pain) 3 Days Qty: 12 0RF No Action ezetimibe 10 mg tablet 10 mg PO QDAY levothyroxine 50 MCG tablet 50 mcg PO DAILY magnesium oxide 300 mg magnesium tablet 1,300 mg PO TID acetaminophen 500 mg tablet 1,000 mg PO Q6H PRN (Reason: pain) ergocalciferol (vitamin D2) 1,250 mcg (50,000 unit) capsule 1,250 mcg PO .COMPLEX Rx Instructions: 1,250 mcg orally EVERY OTHER TUESDAY; omeprazole 40 mg capsule,delayed release(DR/EC) 40 mg PO DAILY PRN (Reason: heartburn) amlodipine 10 mg tablet 10 mg PO DAILY ondansetron 4 mg tablet,disintegrating 4 mg PO Q8H PRN (Reason: nausea and vomiting) sodium bicarbonate 650 mg tablet 1,000 mg PO TID hyoscyamine sulfate 0.125 mg tablet 0.125 mg PO Q6H PRN (Reason: dyspepsia) 5 Days Qty: 20 0RF lacosamide 100 mg tablet 100 mg PO BID Qty: 60 2RF Primary Care Provider: Monster Freire Referrals: Monster Freire MD [Primary Care Provider, Medical] Activity Restrictions/Additional Instructions: Your history and exam is most consistent with uncomplicated diverticulitis. Take the prescribed medications as directed to help resolve infection and pain. You may also want to use MiraLAX once a day to help prevent any constipation. It will typically take 2 to 3 days for symptoms to improve. If you have any further concerns please return to the ER for repeat evaluation Print Language: Greek Disposition Disposition: Home, Self Care Discharge Date/Time: 02/26/25 08:02
[2025-02-26 07:41] VITALS: BP 172/83; PULSE 64; RESP 14; TEMP 36.6; O2SAT 93
== END 2025-02-26 08:02 | disposition home or self-care (01) ==
PROVIDERS: Emergency Provider Emergency Medicine; PCP Family Medicine; Visit Provider Emergency Medicine
DX: K57.92 Diverticulitis of intestine, part unspecified, without perforation or abscess without bleeding (principal); D64.9 Anemia, unspecified; I12.9 Hypertensive chronic kidney disease with stage 1 through stage 4 chronic kidney disease, or unspecified chronic kidney disease; N18.9 Chronic kidney disease, unspecified; E78.00 Pure hypercholesterolemia, unspecified; E03.9 Hypothyroidism, unspecified; F17.210 Nicotine dependence, cigarettes, uncomplicated; Z79.890 Hormone replacement therapy; Z79.899 Other long term (current) drug therapy; Z87.19 Personal history of other diseases of the digestive system
CPT/HCPCS: 80048; 80076; 81001; 83690; 83735; 84100; 85025; 96361; 96374; 96375; 99283; A4216; J2405

== ENCOUNTER 2025-04-09 11:39 | Inpatient (IN) | payer BC, SELFPAY ==
[2025-04-09] VITALS (10 sets, daily range): BP systolic 111–149; BP diastolic 48–89; PULSE 59–72; RESP 15–20; TEMP 36.4–37.1; O2SAT 94–98; BMI 36.6
--- NOTE | 2025-04-09 11:46 | EKG12_ITS ---
Test Reason : REPEAT Blood Pressure : */* mmHG Vent. Rate : 68 BPM Atrial Rate : 68 BPM P-R Int : 154 ms QRS Dur : 88 ms QT Int : 392 ms P-R-T Axes : 36 35 70 degrees QTcB Int : 416 ms Normal sinus rhythm Normal ECG Confirmed by Shaun Freedman ([id number]), material expeditor YASHIRA OLIVER ([id number]) on 04/10/2025 10:23:45 AM Referred By: NORRIS Confirmed By: Shaun Freedman
--- NOTE | 2025-04-09 11:53 | ED.VIS.CHEST ---
HPI History of Present Illness Chief Complaint: Chest Pain Informant: patient Onset/Context/Timing Onset: Today and Hours Activity at onset: gradual (Started around 10 AM at rest.) Timing: Continuous Quality: Positive for Heaviness Location: Left Chest Current Severity: Moderate Maximum Severity: Moderate Worsened By: Nothing Relieved By: Nothing Associated Symptoms: Negative for Nausea, Vomiting, Diaphoresis, Dyspnea, Cough, Fever, Lightheadedness, Acid Reflux or Palpitations Narrative Narrative: C5-year-old female history of chronic kidney disease with upcoming pending dialysis but does not needed dialysis as of yet. Anemia and hypertension. Denies any cardiac disease. No history of DVT or PE. States this morning around 10 AM she got left-sided chest pain radiates to both sides of her jaw. It was nonexertional at rest. She was sitting home working on her computer. Denies nausea. Denies shortness of breath. Denies diaphoresis. She describes it as a burning and sometimes a heaviness. She denies any recent exertional dyspnea or exertional chest pain. Prior Similar Symptoms: No Recent Illness/Hospitalization: No CVD Risk Factors: Negative for Hypertension or Diabetes PE Risk Factors: Negative for Recent Travel/Surgery, Recent Immobilization, Prior DVT or PE, Cancer or OCP + Smoking + >/=35 TAD Risk Factors: Negative for Marfan's Syndrome [facility] Medical History Anemia in chronic kidney disease (CKD) Chronic kidney disease Gaspar's esophagus with dysplasia, unspecified Hypocalcemia High cholesterol GERD (gastroesophageal reflux disease) Hypothyroidism HTN (hypertension) Home Medications ?Medication ?Instructions ?Recorded ?Last Taken ?Type levothyroxine 50 mcg tablet 50 mcg PO DAILY thyroid 11/22/17 04/09/25 History acetaminophen 500 mg tablet 1,000 mg PO Q6H PRN pain 02/02/24 04/09/25 History amlodipine 10 mg tablet 10 mg PO DAILY blood pressure 02/02/24 04/09/25 History ergocalciferol (vitamin D2) 1,250 1,250 mcg PO .COMPLEX supplement 02/02/24 03/29/25 History mcg (50,000 unit) capsule omeprazole 40 mg capsule,delayed 40 mg PO DAILY PRN heartburn 02/02/24 04/09/25 History release ondansetron 4 mg disintegrating 4 mg PO Q8H PRN nausea and vomiting 02/02/24 04/07/25 History tablet sodium bicarbonate 650 mg tablet 1,000 mg PO TID gerd 02/02/24 04/09/25 History ezetimibe 10 mg tablet 10 mg PO QDAY cholesterol 02/07/25 04/08/25 History lacosamide 100 mg tablet 100 mg PO BID seizlure #60 tabs 02/19/25 04/09/25 Rx tramadol 50 mg tablet 50 mg PO Q6H PRN pain 3 days #12 02/26/25 Unknown Rx tabs magnesium oxide 400 mg (241.3 mg 400 mg PO 4X/DAY supplement 04/09/25 04/09/25 History magnesium) tablet Allergy/AdvReac Type Severity Reaction Status Date / Time codeine Allergy Shortness Verified 04/09/25 11:45 of breath hydromorphone (From Dilaudid) Allergy Shortness Verified 04/09/25 11:45 of breath morphine Allergy Shortness Verified 04/09/25 11:45 of breath moxifloxacin (From Avelox) Allergy Shortness Verified 04/09/25 11:45 of breath oxycodone (From Percocet) Allergy Shortness Verified 04/09/25 11:45 of breath Penicillins Allergy Shortness Verified 04/09/25 11:45 of breath [id number] Reductase AdvReac Pain in Verified 04/09/25 11:45 Inhibitor joints Family History Mother , 71 Kidney disease Heart disease Hypertension Myocardial infarction CVA (cerebral vascular accident) Father , 61 Diabetes Kidney disease Surgical History H/O: hysterectomy Hx of cholecystectomy Social History household members: none current occupational status: employed current occupation: [employer] pets and animals: No Smoking Status: Current every day smoker tobacco type: cigarettes alcohol intake: never caffeine: Yes Type: carbonated beverages Number of servings: 1 and coffee Number of servings: 2 do you feel safe at home: Yes ROS ROS ED ROS Narrative Chest pain today. Denies recent illness. Constitutional Constitutional ED: Denies chills or fever(s) ENT ENT ED: Denies ear pain Cardiovascular Cardiovascular: Reports as per HPI and chest pain; Denies palpitations or racing heartbeat Respiratory/Chest Respiratory/Chest: Denies cough, dyspnea or dyspnea on exertion Gastrointestinal Gastrointestinal: Denies abdominal pain, diarrhea, nausea or vomiting Genitourinary Genitourinary ED: Denies dysuria or hematuria Musculoskeletal Musculoskeletal: Denies arthralgias, back pain, myalgias or neck pain Integumentary Denies abscess Neurologic Neurologic: Denies headache(s) Psychiatric Psychiatric: Denies anxiety Endocrine Endocrinology: Denies cold intolerance Hematologic/Lymphatic Hematologic/Lymphatic: Denies easy bleeding Allergic/Immunologic Allergic/Immunologic ED: Denies mouth swelling, tongue swelling or urticaria EXAM Physical Exam Narrative Exam Narrative: 65-year-old female sitting upright in bed vital signs are stable afebrile. Pulse ox 98% on room air no hypoxia. H EENT exam pupils round react light. Moist mutes membranes. Neck nontender no JVD. Lungs clear to auscultation bilaterally. Heart regular rhythm rate about 70 no murmur. Chest wall and ribs nontender. Abdomen soft nontender. Moving all 4 extremities. Calves nontender without edema or cords. Normal beef specialist strength. Equal symmetric radial pulses. Back nontender. Neurologically she is awake alert. Answer questions following commands. Const Vital Signs: 04/09/25 11:42 04/09/25 11:45 04/09/25 12:08 Temperature 98.7 F Temperature Source Oral Pulse Rate 72 Respiratory Rate 18 Respiratory Effort Normal Blood Pressure 143/68 H Blood Pressure Mean 93 Pulse Ox 98 Oxygen Delivery Method Room Air Room Air 04/09/25 12:39 04/09/25 13:01 04/09/25 14:07 Temperature Temperature Source Pulse Rate 62 68 71 Respiratory Rate 18 16 17 Respiratory Effort Blood Pressure 149/66 H 147/61 H 146/66 H Blood Pressure Mean 93 89 92 Pulse Ox 98 97 98 Oxygen Delivery Method Room Air Room Air Room Air 04/09/25 15:10 Temperature Temperature Source Pulse Rate 66 Respiratory Rate 15 Respiratory Effort Blood Pressure 146/78 H Blood Pressure Mean 100 Pulse Ox 96 Oxygen Delivery Method Room Air MDM MDM MDM Narrative Medical decision making narrative: 65-year-old female with nonexertional at rest chest pain. EKG slightly concerning for lead III and aVF. It is a subtle change from prior I have cardiology on page. It is not enough at this time to call the STEMI. I am getting a repeat EKG and shortening her cardiac workup. Repeat exam at 3:26 PM patient still having recurrent pain. She has no history of DVT or PE risk factors. She denies having a recent stress test or heart catheterization. I will speak to the hospitalist about admitting her for atypical chest pain for possible further cardiac testing. History & Record Review Discussion w/independent historian: Patient Additional record(s) reviewed:: Prior outpatient record, Prior ED visit and Prior labs Lab Data Attestation: I reviewed the patient's lab results. Lab results narrative: CBC shows a white count of 9 H&H of 10.3 and 32. Platelets 369. Electrolytes show gap 17. BUN and creatinine of 32 and 4.15 has a history of chronic kidney disease pending dialysis. Glucose 104. Initial troponin is 37. Repeat troponin is 40. Labs: Laboratory Results - last 24 hr 04/09/25 04/09/25 11:38 13:51 WBC 9.4 RBC 3.55 L Hgb 10.3 L Hct 32.4 L MCV 91.3 MCH 29.0 MCHC 31.8 L RDW Std Deviation 45.7 H RDW Coeff of Beatriz 13.5 Plt Count 369 MPV 10.8 Immature Gran % (Auto) 0.400 Neut % (Auto) 68.1 Lymph % (Auto) 22.8 [place] % (Auto) 6.6 Eos % (Auto) 1.5 Baso % (Auto) 0.6 Absolute Neuts (auto) 6.4 Absolute Lymphs (auto) 2.14 Nucleated RBC % 0 Sodium 137 Potassium 5.0 Chloride 103 Carbon Dioxide 16.2 L Anion Gap 17 H BUN 32 H Creatinine 4.15 H Estim Creat Clear Calc 15.11 L Est GFR (MDRD) Non-Af 11 L BUN/Creatinine Ratio 7.8 L Glucose 104 H Calcium 9.2 Troponin T High Sens 37 H D Troponin T Hi Sens 2 Hr 40 H Radiography Chest X-Ray - ED: 1 View, Read by ED Physician, Normal, Heart, Lungs, Mediastinum, Bony Structures, No Acute Disease and Chronic Changes Diagnostic Testing: Clinical Impression(s) from Imaging Studies Chest X-Ray 04/09/25 12:10 IMPRESSION: No Acute Findings. Reading Location: [facility] Chest x-ray, portable, single view shows normal cardiac silhouette. Normal lung avalos. No acute process. Interpreted both by myself and radiologist. We agree. Rhythm Strip Rhythm Strip: Sinus Rhythm Rate: 68 Ectopy: None EKG Initial EKG: Attestation: I personally reviewed and interpreted this EKG as follows: Interpretation: Sinus Rhythm Comments: Normal sinus rhythm rate of 68. There is no thing you can see for sure is no acute AL but she does have subtle ST elevation in lead III and aVF. I have cardiology on page for that. There is nonspecific ST-T wave changes in V1 through V5. Similar to a prior EKG but 3 and aVF are slightly changed. Prior: Changed Follow-up EKG: Attestation: I personally reviewed and interpreted this EKG as follows: Interpretation: Sinus Rhythm and No Acute Injury Pattern Comments: Repeat EKG done at 11:58 AM shows a sinus rhythm rate of 68 likely initial. The subtle changes in leads III looks similar and improved in V3. Again not an acute AL. Prior EKG tracings: available for review Discharge Plan Dx/Rx/DC Orders Clinical Impression: Chest pain of uncertain etiology, Chronic kidney disease, Hypertension, Chronic anemia Disposition Disposition: Acute Care Hospital [facility]
--- NOTE | 2025-04-09 11:58 | EKG12_ITS ---
Test Reason : CP Blood Pressure : */* mmHG Vent. Rate : 68 BPM Atrial Rate : 68 BPM P-R Int : 154 ms QRS Dur : 84 ms QT Int : 390 ms P-R-T Axes : 22 25 83 degrees QTcB Int : 414 ms Normal sinus rhythm Nonspecific ST and T wave abnormality Abnormal ECG Confirmed by Shaun Freedman ([id number]), magazine editor YASHIRA OLIVER ([id number]) on 04/10/2025 10:23:58 AM Referred By: SIRI/HOLLY Confirmed By: Shaun Freedman
[2025-04-09 12:06] LABS: Hematocrit 32.4 % (37-47); Hemoglobin 10.3 g/dL (12.0-15.0); Immature Granulocytes Count 0.040 X10^3/uL (0.0-0.0); Mean Corp Hgb Conc 31.8 g/dL (32-36); Mean Corpuscular Volume 91.3 fL (81-99); Mean Platelet Vol. 10.8 fl (6.2-12.0); NRBC Flagged by Analyzer 0 % (0-5); Platelet Count 369 K/mm3 (150-450); RBC Distribution Width CV 13.5 % (11.6-14.6); RBC Distribution Width SD 45.7 fl (35.1-43.9); Red Blood Count 3.55 M/mm3 (4.2-5.4); White Blood Count 9.4 K/mm3 (4.4-11.0)
[2025-04-09] MEDS: HYDROmorphone 0.5 MG/0.5 ML SYRINGE IV ×3 (12:07→15:15)
--- NOTE | 2025-04-09 12:10 | RAD_ITS ---
PROCEDURE: CHEST 1 VIEW (PORTABLE) 04/09/2025 REASON FOR EXAM: CHEST PAIN TECHNIQUE: Frontal view of the chest. COMPARISON: Prior study dated January 15, 2025. FINDINGS: Hardware: EKG electrodes are seen. Heart: The heart measures upper limits of normal. Lungs: The lungs are clear. Bones: Degenerative changes are identified within the thoracic spine. RAD/Chest 1 View (Portable) IMPRESSION: No Acute Findings. Reading Location: [facility]
[2025-04-09 12:25] LABS: Anion Gap 17 (5-15); BUN 32 mg/dL (4-19); BUN/Creat Ratio 7.8 RATIO (10-20); Calcium,Total 9.2 mg/dL (7.6-11.0); Carbon Dioxide 16.2 mmol/L (21.0-32.0); Chloride 103 mmol/L (98-108); Estimated Creatinine Clearance 15.11 ml/min (50-250); Glucose 104 mg/dL (70-99); Potassium 5.0 mmol/L (3.3-5.1); Troponin T High Sensitivity 37 ng/L (<=14)
--- NOTE | 2025-04-09 12:50 | EKG12_ITS ---
Test Reason : REPEAT X 2 Blood Pressure : */* mmHG Vent. Rate : 63 BPM Atrial Rate : 63 BPM P-R Int : 152 ms QRS Dur : 92 ms QT Int : 400 ms P-R-T Axes : 11 19 90 degrees QTcB Int : 409 ms Normal sinus rhythm Nonspecific ST and T wave abnormality Abnormal ECG Confirmed by Shaun Freedman ([id number]), editor map YASHIRA OLIVER ([id number]) on 04/10/2025 10:23:25 AM Referred By: Confirmed By: Shaun Freedman
[2025-04-09 14:23] LABS: Troponin T High Sens 2 HR 40 ng/L (<=14)
--- NOTE | 2025-04-09 15:45 | PCM.HP.STD ---
HPI - General General Date of Admission: 04/09/25 Date of Service: 04/09/25 Chief Complaint: Chest pain HPI Narrative CARLOS A COYLE, is a 65 F who presented to [facility] ED on 04/09/2025 with chest pain. Medical history significant for CKD stage V not yet on dialysis, hypertension, hyperlipidemia, hypothyroidism and GERD. Patient is planning to have peritoneal dialysis catheter placed in mid April. She presented today with left-sided chest pain that began at rest and radiated into both side of her jaw. She describes the pain as a burning pain with sometimes heaviness. Nothing seems to make the pain better or worse. She has intermittent acid reflux and notes that this pain is different than reflux related discomfort. In the ED she was normotensive to mildly hypertensive, in normal sinus rhythm, afebrile and stable on room air at rest. EKG with normal sinus rhythm, no ST changes. Troponin trend 37 > 40 > 78. CBC was benign. BMP with creatinine 4.15, at baseline. Chest x-ray unremarkable. Given the uptrending troponins, patient was started on heparin drip for NSTEMI and hospitalist was contacted for admission. I saw the patient at bedside in the ED. Patient was sitting back fairly comfortably in bed, conversing normally, in no acute distress. She reported mild chest pain with some radiation into the right side of her jaw currently, improved from earlier today. She notably was given multiple doses of IV pain medication that helped with the pain. She denies any shortness of breath. Denies any other acute concerns currently. Will be admitted for further management. [facility] Medical History Anemia in chronic kidney disease (CKD) Chronic kidney disease Gaspar's esophagus with dysplasia, unspecified Hypocalcemia High cholesterol GERD (gastroesophageal reflux disease) Hypothyroidism HTN (hypertension) Home Medications ?Medication ?Instructions ?Recorded ?Last Taken ?Type levothyroxine 50 mcg tablet 50 mcg PO DAILY thyroid 11/22/17 04/09/25 History acetaminophen 500 mg tablet 1,000 mg PO Q6H PRN pain 02/02/24 04/09/25 History amlodipine 10 mg tablet 10 mg PO DAILY blood pressure 02/02/24 04/09/25 History ergocalciferol (vitamin D2) 1,250 1,250 mcg PO .COMPLEX supplement 02/02/24 03/29/25 History mcg (50,000 unit) capsule omeprazole 40 mg capsule,delayed 40 mg PO DAILY PRN heartburn 02/02/24 04/09/25 History release ondansetron 4 mg disintegrating 4 mg PO Q8H PRN nausea and vomiting 02/02/24 04/07/25 History tablet sodium bicarbonate 650 mg tablet 1,000 mg PO TID gerd 02/02/24 04/09/25 History ezetimibe 10 mg tablet 10 mg PO QDAY cholesterol 02/07/25 04/08/25 History lacosamide 100 mg tablet 100 mg PO BID seizlure #60 tabs 02/19/25 04/09/25 Rx tramadol 50 mg tablet 50 mg PO Q6H PRN pain 3 days #12 02/26/25 Unknown Rx tabs magnesium oxide 400 mg (241.3 mg 400 mg PO 4X/DAY supplement 04/09/25 04/09/25 History magnesium) tablet Allergy/AdvReac Type Severity Reaction Status Date / Time codeine Allergy Shortness Verified 04/09/25 11:45 of breath hydromorphone (From Dilaudid) Allergy Shortness Verified 04/09/25 11:45 of breath morphine Allergy Shortness Verified 04/09/25 11:45 of breath moxifloxacin (From Avelox) Allergy Shortness Verified 04/09/25 11:45 of breath oxycodone (From Percocet) Allergy Shortness Verified 04/09/25 11:45 of breath Penicillins Allergy Shortness Verified 04/09/25 11:45 of breath Rhssucg-BCR-[id number] Reductase AdvReac Pain in Verified 04/09/25 11:45 Inhibitor joints Family History Mother , 71 Kidney disease Heart disease Hypertension Myocardial infarction CVA (cerebral vascular accident) Father , 61 Diabetes Kidney disease Surgical History H/O: hysterectomy Hx of cholecystectomy Social History household members: none current occupational status: employed current occupation: [employer] pets and animals: No Smoking Status: Current every day smoker tobacco type: cigarettes alcohol intake: never caffeine: Yes Type: carbonated beverages Number of servings: 1 and coffee Number of servings: 2 do you feel safe at home: Yes ROS Constitutional Constitutional: Denies chills, fatigue, fever(s) or weakness Cardiovascular Cardiovascular: Reports chest pain; Denies dyspnea on exertion, edema, lightheadedness, orthopnea or palpitations Respiratory/Chest Respiratory/Chest: Denies cough, shortness of breath at rest or wheezing Gastrointestinal Gastrointestinal: Denies abdominal pain, nausea or vomiting Genitourinary Genitourinary: Denies dysuria Musculoskeletal Musculoskeletal: Denies arthralgias or myalgias Neurologic Neurologic: Denies dizziness, focal weakness, headache(s), numbness or tingling Vital Signs Vital Signs Vital Signs: 04/09/25 11:42 04/09/25 11:45 04/09/25 12:08 Temperature 98.7 F Temperature Source Oral Pulse Rate 72 Respiratory Rate 18 Respiratory Effort Normal Blood Pressure 143/68 H Blood Pressure Mean 93 Pulse Ox 98 Oxygen Delivery Method Room Air Room Air 04/09/25 12:39 04/09/25 13:01 04/09/25 14:07 Temperature Temperature Source Pulse Rate 62 68 71 Respiratory Rate 18 16 17 Respiratory Effort Blood Pressure 149/66 H 147/61 H 146/66 H Blood Pressure Mean 93 89 92 Pulse Ox 98 97 98 Oxygen Delivery Method Room Air Room Air Room Air 04/09/25 15:10 Temperature Temperature Source Pulse Rate 66 Respiratory Rate 15 Respiratory Effort Blood Pressure 146/78 H Blood Pressure Mean 100 Pulse Ox 96 Oxygen Delivery Method Room Air Weight Weight: 93.8 kg Body Mass Index (BMI) 36.6 Physical Exam Const alert, oriented x3 and no apparent distress Constitutional Narrative: Upper middle-aged female, class II obesity, appears older than stated age, mildly fatigued appearing, otherwise sitting back fairly comfortably in bed, answering questions appropriately, in no acute distress. General Appearance: cooperative and comfortable HEENT normocephalic, head/scalp atraumatic, hearing grossly normal bilaterally, nasal mucous membranes and turbinates normal and moist oral mucous membranes Eyes PERRL, EOMs intact bilaterally and conjunctivae normal Neck full ROM Chest inspection of chest normal Resp normal respiratory effort, normal air movement, no use of accessory muscles and clear to auscultation bilaterally Cardio regular rate, regular rhythm, no murmurs and peripheral pulses 2+ throughout GI normal to inspection, nondistended, normoactive bowel sounds, soft to palpation, non-tender and non-distended Back/Spine normal ROM Extremity normal to inspection, full ROM and no pedal edema Skin no rashes or lesions noted Neuro moves all extremities and no focal motor deficits Speech: speech normal Motor Exam: strength 5/5 throughout Psych mental status grossly normal Results Lab / Micro Data 04/09/25 11:38 04/09/25 11:38 Labs: Laboratory Results - last 24 hr 04/09/25 11:38: WBC 9.4, RBC 3.55 L, Hgb 10.3 L, Hct 32.4 L, MCV 91.3, MCH 29.0, MCHC 31.8 L, RDW Std Deviation 45.7 H, RDW Coeff of Beatriz 13.5, Plt Count 369, MPV 10.8, Immature Gran % (Auto) 0.400, Neut % (Auto) 68.1, Lymph % (Auto) 22.8, [place] % (Auto) 6.6, Eos % (Auto) 1.5, Baso % (Auto) 0.6, Absolute Neuts (auto) 6.4, Absolute Lymphs (auto) 2.14, Nucleated RBC % 0, Sodium 137, Potassium 5.0, Chloride 103, Carbon Dioxide 16.2 L, Anion Gap 17 H, BUN 32 H, Creatinine 4.15 H, Estim Creat Clear Calc 15.11 L, Est GFR (MDRD) Non-Af 11 L, BUN/Creatinine Ratio 7.8 L, Glucose 104 H, Calcium 9.2, Troponin T High Sens 37 H D 04/09/25 13:51: Troponin T Hi Sens 2 Hr 40 H Rhythm Strip Rhythm Strip: Sinus Rhythm Rate: 68 Ectopy: None Imaging Radiology Impression Chest X-Ray 04/09/25 12:10 IMPRESSION: No Acute Findings. Reading Location: [id number] Assessment & Plan Assessment/Plan (1) NSTEMI, initial episode of care: PLAN: Plan Patient is a 65-year-old male who presented to [facility] ED on 04/09/2025 with chest pain. 1. NSTEMI ? Admit under inpatient status to PCU. Cardiology consulted. Troponin trend 37 > 40 > 78. EKG with normal sinus rhythm and no ST changes. Per cardiology, will proceed with nuclear stress test tomorrow morning for further evaluation given hesitation with performing invasive dilated therapy could hasten onset of dialysis. N.p.o. at midnight. Continue heparin drip for now. Notably recent echo in December showed EF 65%, stage I diastolic dysfunction, no other concerning findings. Repeat limited echocardiogram ordered as well per cardiology. Appreciate further cardiology recommendations. 2. CKD stage V ? Creatinine 4.15 on admit, stable at baseline. Per patient, plan is for peritoneal dialysis catheter placement in mid April. Monitor daily BMP and urine output while inpatient. Continue home sodium bicarbonate tablets. Chronic medical conditions: ? Class II obesity: BMI 36 on admit. Complicates hospital course and care. ? Hypertension/hyperlipidemia: Mildly hypertensive on admit. Continue home amlodipine and Zetia. Has been unable to tolerate statins in the past. ? Hypothyroidism: Continue home Synthroid. ? GERD: Continue home PPI. ? Chronic anemia of renal disease: Hemoglobin 10.3 on admit, stable at baseline. ? Seizure disorder: Continue home lacosamide. DVT prophylaxis: Not indicated, on heparin drip CODE STATUS: Full code, verified Expected disposition: Home, TBD Total clinical time spent by myself addressing the patient's medical issues, reviewing all the data, and collaborating with patient's care team: 63 minutes. Charges/Coding Visit Charges Inpatient E&M: 96393 Init Hosp L2
--- NOTE | 2025-04-09 16:06 | CASEMGMT ---
Care Management Face to Face with patient for initial transition planning/care coordination assessment in the ED. This newspaper writer introduced self and role at [facility]. Patient alert and oriented. Patient willing to participate in assessment and is able to answer all questions appropriately. Care providers, pharmacy, and demographics verified. Admitting Diagnosis: chest pain of uncertain etiology Other diagnosis history: Anemia in CKD; Gaspar's esophagus with dysplasia, unspecified; GERD; Hypothyroidism; HTN PCP: Mouna Specialists: Bianka, nephrology. [facility] (next appointment is 04/30/25) Preferred Pharmacy: [facility] Insurance: [employer] Prescription Benefit: yes Living Will/HPOA: patient believes to have one completed, but unsure where it is located. Denied needing to recomplete during admission. LNOK: brother, Michoacano, and sister in law, Severiano. Living Arrangements: lives alone in a ranch style home with 3 steps to enter. Reports to be independent with ADLs/IADLs. Transportation: cannot drive d/t recent seizure; Severiano or Michoacano are currently driving. DME: none currently, but reports to be receiving a port for dialysis on 05/09/25 HHC: none SNF/Rehab: none Community Resources: none Patient goals: Patient wishes to discharge home, denies need for home health care at this time. Patient denies any further needs or concerns at this time. Disposition Plan: admission to acute; RN CM/SW to follow for discharge planning needs that may arise. Shira Martinez, PRINCIPAL NETWORK ARCHITECT, DIRECTOR OF WOMEN'S SERVICES
[2025-04-09 16:28] LABS: Magnesium 1.5 mg/dL (1.5-2.2)
[2025-04-09 16:38] LABS: Troponin T High Sens 4 HR 78 ng/L (<=14)
[2025-04-09 17:15] LABS: Prothrombin Time (Protime)PT. 12.5 SECONDS (11.7-14.9)
[2025-04-09 17:16] LABS: Partial Thromboplast Time 29.1 Seconds (24.1-36.2)
[2025-04-09] MEDS: HEPARIN/D5w 25,000 UNITS 25,000 UNITS/250 ML IV.SOLN. 10 UNITS CONT INF (18:07)
[2025-04-09] MEDS: Heparin Injection (Vial) 5,000 UNIT/ML VIAL 5500 UNIT IV (18:17)
--- NOTE | 2025-04-09 20:06 | PCM.CONS.C ---
Assessment & Plan Assessment/Plan (1) Chest pain: PLAN: She presents with chest discomfort and has mildly elevated cardiac troponin enzymes. She also has significant renal disease and is pending dialysis soon. At this particular time may be helpful to risk stratify her further with a pharmacologic stress test to see the extent of ischemia. I am hesitant to perform an invasive dye related therapy at this particular time as it may hasten onset of dialysis and at this time it looks like the catheter is scheduled to be put in in mid April. If therefore the area of ischemia is not significant then we may be able to manage her until close to the time of her dialysis catheter placement before resorting to any invasive therapy. (2) Hypertension: PLAN: Will continue aggressive blood pressure management at this particular time. Will recommend repeat echocardiogram with a limited echo to assess her ventricular function. (3) Chronic kidney disease: PLAN: She does have evidence of chronic kidney disease and will await further recommendations from the vocational training instructor. (4) High cholesterol: PLAN: She does have a history of high cholesterol and has not been able to tolerate statins in the past. Will start ezetimibe at this time. HPI Consult Data Date of Consult: 04/09/25 HPI Narrative HPI Narrative: CARLOS A COYLE, is a 65 F who presents to the emergency room complaining of epigastric burning as well as jaw and tongue discomfort. She does have a history of hypertension hyperlipidemia obesity and chronic renal failure who is pending a peritoneal dialysis catheter. She was scheduled to have the above in December and unfortunately she did have a grand mal seizure. She says that they investigated the above extensively but did not find any etiology. At that time during the hospitalization an echocardiogram was performed with demonstrated preserved ejection fraction of 65% with no wall motion abnormality. She had been in her usual state of health continuing her medication until this happened. She presented to the emergency room and EKG was done which did not demonstrate any acute changes demonstrated normal sinus rhythm and then 2 initial troponins were noted to be unremarkable but then the third troponin was noted to be elevated she was admitted to the telemetry care unit cardiology was called for further evaluation and management. At this particular time she remains pain-free. [ ] [facility] Medical History Anemia in chronic kidney disease (CKD) Chronic kidney disease Gaspar's esophagus with dysplasia, unspecified Hypocalcemia High cholesterol GERD (gastroesophageal reflux disease) Hypothyroidism HTN (hypertension) Home Medications ?Medication ?Instructions ?Recorded ?Last Taken ?Type levothyroxine 50 mcg tablet 50 mcg PO DAILY thyroid 11/22/17 04/09/25 History acetaminophen 500 mg tablet 1,000 mg PO Q6H PRN pain 02/02/24 04/09/25 History amlodipine 10 mg tablet 10 mg PO DAILY blood pressure 02/02/24 04/09/25 History ergocalciferol (vitamin D2) 1,250 1,250 mcg PO .COMPLEX supplement 02/02/24 03/29/25 History mcg (50,000 unit) capsule omeprazole 40 mg capsule,delayed 40 mg PO DAILY PRN heartburn 02/02/24 04/09/25 History release ondansetron 4 mg disintegrating 4 mg PO Q8H PRN nausea and vomiting 02/02/24 04/07/25 History tablet sodium bicarbonate 650 mg tablet 1,000 mg PO TID gerd 02/02/24 04/09/25 History ezetimibe 10 mg tablet 10 mg PO QDAY cholesterol 02/07/25 04/08/25 History lacosamide 100 mg tablet 100 mg PO BID seizlure #60 tabs 02/19/25 04/09/25 Rx tramadol 50 mg tablet 50 mg PO Q6H PRN pain 3 days #12 02/26/25 Unknown Rx tabs magnesium oxide 400 mg (241.3 mg 400 mg PO 4X/DAY supplement 04/09/25 04/09/25 History magnesium) tablet Allergy/AdvReac Type Severity Reaction Status Date / Time codeine Allergy Shortness Verified 04/09/25 11:45 of breath hydromorphone (From Dilaudid) Allergy Shortness Verified 04/09/25 11:45 of breath morphine Allergy Shortness Verified 04/09/25 11:45 of breath moxifloxacin (From Avelox) Allergy Shortness Verified 04/09/25 11:45 of breath oxycodone (From Percocet) Allergy Shortness Verified 04/09/25 11:45 of breath Penicillins Allergy Shortness Verified 04/09/25 11:45 of breath Iqjmuwe-BJA-WtR Reductase AdvReac Pain in Verified 04/09/25 11:45 Inhibitor joints Family History Mother , 71 Kidney disease Heart disease Hypertension Myocardial infarction CVA (cerebral vascular accident) Father , 61 Diabetes Kidney disease Surgical History H/O: hysterectomy Hx of cholecystectomy Social History household members: none current occupational status: employed current occupation: [employer] pets and animals: No Smoking Status: Current every day smoker tobacco type: cigarettes alcohol intake: never caffeine: Yes Type: carbonated beverages Number of servings: 1 and coffee Number of servings: 2 do you feel safe at home: Yes Prior Cardiac Testing/Procedures Prior Cardiac Testing/Procedures: Echocardiogram ROS Constitutional Constitutional: Denies fever(s) or weight loss Eyes Eyes: Reports systems reviewed and no addt'l complaints, except as documented ENT HEENT: Reports systems reviewed and no addt'l complaints, except as documented Cardiovascular Cardiovascular: Reports chest pain at rest and dyspnea at rest; Denies chest pain with activity, dyspnea on exertion, edema, palpitations or paroxysmal nocturnal dyspnea Respiratory/Chest Respiratory/Chest: Denies dyspnea on exertion, productive cough, shortness of breath at rest or shortness of breath with exertion Gastrointestinal Gastrointestinal: Denies change in bowel habits, nausea, vomiting or weight changes Genitourinary Genitourinary: Denies difficulty urinating Musculoskeletal Musculoskeletal: Denies joint stiffness or muscle weakness Integumentary Integumentary: Denies lesions Neurologic Neurologic: Denies dizziness or syncope Psychiatric Psychiatric: Denies anxiety Endocrine Endocrinology: Denies excessive sweating or fatigue Hematologic/Lymphatic Hematologic/Lymphatic: Denies anemia Allergic/Immunologic Allergic/Immunologic: Denies seasonal rhinorrhea Physical Exam Const alert, oriented x3 and no apparent distress General Appearance: cooperative Orientation / Consciousness: awake HEENT normocephalic, head/scalp atraumatic, hearing grossly normal bilaterally and moist oral mucous membranes Head and Scalp: normal to inspection Face and Sinus: normal facial exam Nose: external nose normal Eyes PERRL, EOMs intact bilaterally and conjunctivae normal Neck full ROM, supple and no JVD Carotids: normal carotid upstroke Lymph Lymphatic: no lymphadenopathy noted Chest inspection of chest normal Resp normal respiratory effort and clear to auscultation bilaterally Auscultation: clear to auscultation bilaterally Cardio regular rate and regular rhythm GI normal to inspection, nondistended, normoactive bowel sounds, soft to palpation, non-tender and non-distended Extremity no pedal edema Neuro oriented x3 and moves all extremities Sensorium / Orientation: awake and alert Psych thought process normal, cooperative and affect normal Appearance: appropriate Objective Data Vital Signs: Vital Signs Temp Pulse Resp BP Pulse Ox O2 Del Method 98.3 F 60 20 H 128/75 H 95 Room Air 04/09/25 17:45 04/09/25 17:45 04/09/25 17:45 04/09/25 17:45 04/09/25 17:45 04/09/25 18:00 Oxygen Delivery Method Room Air Weight: 206 lb 12.697 oz Body Mass Index (BMI) 36.6 Intake & Output: Intake and Output for Last 24 Hours 04/07/25 04/08/25 04/09/25 23:59 23:59 23:59 Intake Total 200 / 200 Balance 200 / 200 Lab / Micro Data 04/09/25 11:38 04/09/25 11:38 Labs: Laboratory Results - last 24 hr 04/09/25 11:38: WBC 9.4, RBC 3.55 L, Hgb 10.3 L, Hct 32.4 L, MCV 91.3, MCH 29.0, MCHC 31.8 L, RDW Std Deviation 45.7 H, RDW Coeff of Beatriz 13.5, Plt Count 369, MPV 10.8, Immature Gran % (Auto) 0.400, Neut % (Auto) 68.1, Lymph % (Auto) 22.8, [place] % (Auto) 6.6, Eos % (Auto) 1.5, Baso % (Auto) 0.6, Absolute Neuts (auto) 6.4, Absolute Lymphs (auto) 2.14, Nucleated RBC % 0, PT 12.5, INR 0.9, APTT 29.1, Sodium 137, Potassium 5.0, Chloride 103, Carbon Dioxide 16.2 L, Anion Gap 17 H, BUN 32 H, Creatinine 4.15 H, Estim Creat Clear Calc 15.11 L, Est GFR (MDRD) Non-Af 11 L, BUN/Creatinine Ratio 7.8 L, Glucose 104 H, Calcium 9.2, Troponin T High Sens 37 H D 04/09/25 13:51: Troponin T Hi Sens 2 Hr 40 H 04/09/25 14:56: Magnesium 1.5, Troponin T Hi Sens 4Hr 78 H* Rhythm Strip Rhythm Strip: Sinus Rhythm Rate: 68 Ectopy: None Cardiology Labs/Tests 04/09/25 11:38: WBC 9.4, RBC 3.55 L, Hgb 10.3 L, Hct 32.4 L, MCV 91.3, MCH 29.0, MCHC 31.8 L, Plt Count 369, MPV 10.8, Immature Gran % (Auto) 0.400, Neut % (Auto) 68.1, Lymph % (Auto) 22.8, [place] % (Auto) 6.6, Eos % (Auto) 1.5, Baso % (Auto) 0.6, Absolute Neuts (auto) 6.4, Nucleated RBC % 0, PT 12.5, INR 0.9, APTT 29.1, Sodium 137, Potassium 5.0, Chloride 103, Carbon Dioxide 16.2 L, Anion Gap 17 H, BUN 32 H, Creatinine 4.15 H, Est GFR (MDRD) Non-Af 11 L, BUN/Creatinine Ratio 7.8 L, Glucose 104 H, Calcium 9.2 04/09/25 14:56: Magnesium 1.5 Rhythm: EKG: ECHO: Stress Test: Cardiac Cath: PCI: CT Surgery: Holter monitor: EPS: PPM: CXR: Chest CT Scan: Radiography Diagnostic Testing: Radiology Impression Chest X-Ray 04/09/25 12:10 IMPRESSION: No Acute Findings. Reading Location: [id number] Risk Score for UA/STEMI Assesmment (YES = 1) Risk Stratification Applicable: Yes Age > or = 65: No > or = 3 CAD risk factors (HTN, Hypercholesterolemia, Diabetes, family hx, current smoker): Yes Known CAD (Stenosis > or = 50%): No ASA used in past 7 days: No Severe angina (> or = 2 episodes in 24 hrs): No EKG ST change > or = 0.5mm: No Positive cardiac markers: Yes Score LILY Risk Score of mortality/ recurrent ischemic event over the next 14 days: 2 = 8.3% - Low Risk
--- NOTE | 2025-04-09 20:11 | ECHOD_ITS ---
Reason For Study Reason For Study: CHEST PAIN Procedure This was a 2D Doppler, Color Flow transthoracic echocardiogram. Exam performed in department. Left Ventricle Normal LV size. Mild concentric left ventricular hypertrophy. The left ventricular ejection fraction is 70 %. Mild to moderate segmental systolic dysfunction (see wall motion). Stage 1 diastolic dysfunction. Infero-Basal: Akinetic. There are regional wall motion abnormalities as specified. The rest of the wall segments are normal. Right Ventricle Normal RV size. Normal systolic function. Atria Normal left atrium. Normal right atrium. Tricuspid Valve Normal tricuspid valve. Mild (1+) tricuspid valve insufficiency. Aortic Valve Trisinus/trileaflet aortic valve. Mild focal aortic valve calcification. Moderate aortic stenosis. Peak aortic valve gradient 53 mmHg. Mean aortic valve gradient 26 mmHg. Pulmonic Valve Normal pulmonic valve. Great Vessels Normal aortic root. The pulmonary artery is normal size. Inferior vena cava collapse with respiration. Pericardium/Pleural No pericardial effusion. MMode/2D Measurements & Calculations LVIDd: 5.7 cm IVSd: 1.3 cm LVOT diam: 2.0 cm LVIDs: 3.7 cm LVPWd: 1.3 cm LVOT area: 3.2 cm2 RVDd: 3.1 cm FS: 34.2 % Ao root diam: 3.3 cm LAV(MOD-bp): 64.9 ml LVAd ap4: 32.5 cm2 LAV(MOD-bp) Indexed: 32.4 ml/m2 LVLd ap4: 8.0 cm LAV(MOD-sp2): 64.2 ml EDV(MOD-sp4): 107.3 ml LAV(MOD-sp4): 58.8 ml EDV(sp4-el): 111.2 ml LVAs ap4: 15.3 cm2 LVLs ap4: 6.4 cm ESV(MOD-sp4): 34.1 ml ESV(sp4-el): 31.3 ml EF(MOD-sp4): 68.2 % EF(sp4-el): 71.9 % SV(MOD-sp4): 73.2 ml SV(sp4-el): 80.0 ml LA A4 area: 19.4 cm2 SI(MOD-sp4): 36.6 ml/m2 LA dimension(2D): 4.3 cm RA A4 area: 15.6 cm2 TAPSE: 1.9 cm Time Measurements MV dec time: 0.24 sec Doppler Measurements & Calculations MV E max jair: 70.5 cm/sec Lat Peak E' Jair: 4.6 cm/sec Med Peak E' Jair: 12.7 cm/sec MV A max jair: 104.1 cm/sec E/E' lat: 15.2 E/E' med: 5.6 MV E/A: 0.68 MV V2 max: 104.1 cm/sec MV P1/2t max jair: 83.0 cm/sec Ao V2 max: 361.4 cm/sec MV max P.3 mmHg MV P1/2t: 51.9 msec Ao max P.3 mmHg MV V2 mean: 47.2 cm/sec Ao V2 mean: 244.1 cm/sec MV mean P.1 mmHg MV dec slope: 469.0 cm/sec2 Ao mean P.1 mmHg MV V2 VTI: 29.7 cm MVA(P1/2t): 4.2 cm2 Ao V2 VTI: 90.6 cm AV (velocity ratio): 0.35 MVA(VTI): 3.5 cm2 ALEJANDRINA(I,D): 1.1 cm2 ALEJANDRINA(V,D): 1.00 cm2 LV V1 max: 111.5 cm/sec SV(LVOT): 102.6 ml PA V2 max: 129.0 cm/sec LV V1 max P.0 mmHg LV V1 mean P.3 mmHg LV V1 mean: 87.4 cm/sec LV V1 VTI: 31.7 cm TR max jair: 286.7 cm/sec TR max P.9 mmHg ECHO/Echo Complete Interpretation Summary Normal LV size. Mild concentric left ventricular hypertrophy. The left ventricular ejection fraction is 70 %. Mild to moderate segmental systolic dysfunction (see wall motion). Stage 1 diastolic dysfunction. Mild focal aortic valve calcification. Moderate aortic stenosis. Mean aortic valve gradient 26 mmHg. Ordering Physician: Wong Salmeron Referring Physician: Monster Freire Performed By: Anika Wick, KRIS, RVT
[2025-04-09] MEDS: Magnesium Chloride 64 MG Delay Rel.Tablet 128 MG PO (20:57)
[2025-04-09] MEDS: Senna Tablet 1 TABLET PO (20:58)
[2025-04-09] MEDS: Nitroglycerin Oint 1 INCH PACKET TD (23:31)
[2025-04-10 00:34] LABS: Partial Thromboplast Time 99.1 Seconds (24.1-36.2)
[2025-04-10 03:55] VITALS: BP 118/67; PULSE 60; RESP 18; TEMP 37.1; O2SAT 97
--- NOTE | 2025-04-10 05:55 | EKG12_ITS ---
Test Reason : AM Blood Pressure : */* mmHG Vent. Rate : 61 BPM Atrial Rate : 61 BPM P-R Int : 160 ms QRS Dur : 80 ms QT Int : 398 ms P-R-T Axes : 49 14 9 degrees QTcB Int : 400 ms Normal sinus rhythm Normal ECG When compared with ECG of 09-Apr-2025 12:55, MANUAL COMPARISON REQUIRED DATA IS UNCONFIRMED Confirmed by Shaun Freedman ([id number]), editor dictionary YASHIRA OLIVER ([id number]) on 04/10/2025 10:15:14 AM Referred By: Confirmed By: Shaun Freedman
--- NOTE | 2025-04-10 07:44 | PCM.PN.HOSP ---
Reason for Visit Chief Complaint: Chest pain Objective Data Objective Data Vital Signs: Vital Signs Temp Pulse Resp BP Pulse Ox O2 Del Method 98.8 F 60 18 118/67 97 Room Air 04/10/25 03:55 04/10/25 03:55 04/10/25 03:55 04/10/25 03:55 04/10/25 03:55 04/10/25 03:55 Oxygen Delivery Method Room Air Weight: 206 lb 12.697 oz Body Mass Index (BMI) 36.6 Intake & Output: Intake and Output for Last 24 Hours 04/08/25 04/09/25 04/10/25 23:59 23:59 23:59 Intake Total 200 / 200 64.83 / 64.83 Balance 200 / 200 64.83 / 64.83 Lab / Micro Data 04/10/25 07:45 04/10/25 07:45 Labs: Laboratory Results - last 24 hr 04/09/25 11:38: WBC 9.4, RBC 3.55 L, Hgb 10.3 L, Hct 32.4 L, MCV 91.3, MCH 29.0, MCHC 31.8 L, RDW Std Deviation 45.7 H, RDW Coeff of Beatriz 13.5, Plt Count 369, MPV 10.8, Immature Gran % (Auto) 0.400, Neut % (Auto) 68.1, Lymph % (Auto) 22.8, [place] % (Auto) 6.6, Eos % (Auto) 1.5, Baso % (Auto) 0.6, Absolute Neuts (auto) 6.4, Absolute Lymphs (auto) 2.14, Nucleated RBC % 0, PT 12.5, INR 0.9, APTT 29.1, Sodium 137, Potassium 5.0, Chloride 103, Carbon Dioxide 16.2 L, Anion Gap 17 H, BUN 32 H, Creatinine 4.15 H, Estim Creat Clear Calc 15.11 L, Est GFR (MDRD) Non-Af 11 L, BUN/Creatinine Ratio 7.8 L, Glucose 104 H, Calcium 9.2, Troponin T High Sens 37 H D 04/09/25 13:51: Troponin T Hi Sens 2 Hr 40 H 04/09/25 14:56: Magnesium 1.5, Troponin T Hi Sens 4Hr 78 H* 04/10/25 00:12: APTT 99.1 H* Radiography Diagnostic Testing: Radiology Impression Chest X-Ray 04/09/25 12:10 IMPRESSION: No Acute Findings. Reading Location: [id number] Rhythm Strip Rhythm Strip: Sinus Rhythm Rate: 68 Ectopy: None Physical Exam Narrative Patient complained of chest pain felt like burning/heavy 10/10 intensity with radiation to carotids, it has gotten better currently at 2/10 intensity. Patient IV heparin drip. Going for stress test. Chronic constipation on magnesium supplement/laxative Physical General: Alert, Oriented x3, Cooperative HEENT: Atraumatic, PERRLA, EOMI, Normocephalic. Oral: No Gingival or Mucosal Lesions/ Ulcerations Neck: Supple, No JVD, Negative Carotid Bruits Chest wall/Lungs: Air entry diminished in bilateral lung bases. No crepitation/rhonchi Cardiovascular: Sinus rhythm normal S1,S2, systolic murmur Abdomen: Bowel Sounds Present, Soft, Non Tender, Non-Distended : No dysuria. No renal angle tenderness. No suprapubic tenderness. Extremities: No edema, Capillary Refill Less than 3 Seconds Skin: No rashes, No breakdown Musculoskeletal: No Tenderness to Palpation of Joints or Extremities Neurological: Cranial nerves II-XII grossly intact, DTR 2+/4. No acute focal neurological deficit. Psych/Mental Status: Normal Affect, Appropriate. Assessment & Plan Assessment/Plan (1) NSTEMI, initial episode of care: PLAN: Plan Patient is a 65-year-old male who presented to [facility] ED on 04/09/2025 with chest pain about 10 AM on day of admission with radiation to bilateral jaw, left arm and shoulder 8/10, nonexertional. Denies dyspnea 1. NSTEMI ? Admit under inpatient status to PCU. Cardiology consulted. Troponin trend 37 > 40 > 78. EKG with normal sinus rhythm and no ST changes. Continue heparin drip for now. Notably recent echo in December showed EF 65%, stage I diastolic dysfunction, no other concerning findings. Repeat limited echocardiogram ordered as well per cardiology. Appreciate further cardiology recommendations. 04/10 patient going for stress test. ECG NSR with no evidence of ST/T deviation. Polisher Eyeglass Frames consulted and recommended stress test. Repeat echo also ordered. Heparin drip on hold 2. CKD stage V ? Creatinine 4.15 on admit, stable at baseline. Per patient, plan is for peritoneal dialysis catheter placement in mid April. Monitor daily BMP and urine output while inpatient. Continue home sodium bicarbonate tablets. 04/10: BUN/creatinine 33/4.31. Chronic medical conditions: ? Class II obesity: BMI 36 on admit. Complicates hospital course and care. ? Hypertension/hyperlipidemia: Mildly hypertensive on admit. Continue home amlodipine and Zetia. Has been unable to tolerate statins in the past. ? Hypothyroidism: Continue home Synthroid. ? GERD: Continue home PPI. ? Chronic anemia of renal disease: Hemoglobin 10.3 on admit, stable at baseline. 04/10: H&H 8.9/27.7%. Platelet count 319. Mild drop in hemoglobin does not meet criteria for acute anemia ? Seizure disorder: Continue home lacosamide. DVT prophylaxis: Not indicated, on heparin drip CODE STATUS: Full code, verified Charges/Coding Visit Charges Inpatient E&M: 31483 Subs Hosp L2
[2025-04-10 07:59] LABS: Hematocrit 27.7 % (37-47); Hemoglobin 8.9 g/dL (12.0-15.0); Mean Corp Hgb Conc 32.1 g/dL (32-36); Mean Corpuscular Volume 91.4 fL (81-99); Mean Platelet Vol. 10.6 fl (6.2-12.0); Platelet Count 319 K/mm3 (150-450); RBC Distribution Width CV 13.5 % (11.6-14.6); RBC Distribution Width SD 45.4 fl (35.1-43.9); Red Blood Count 3.03 M/mm3 (4.2-5.4); White Blood Count 8.6 K/mm3 (4.4-11.0)
--- NOTE | 2025-04-10 08:03 | PN.CARD_ITS ---
Subjective Subjective Patient reports that she has had persistent chest discomfort ever since prior to coming to the hospital and since being admitted. ECGs on multiple occasions yesterday and again this morning showed normal sinus rhythm and normal with no evidence of ST or T wave changes. She does have troponins of 38, 41, and 75. This is in the face of an elevated creatinine. Objective Data Vital Signs: Vital Signs Temp Pulse Resp BP Pulse Ox O2 Del Method 98.8 F 60 18 118/67 97 Room Air 04/10/25 03:55 04/10/25 03:55 04/10/25 03:55 04/10/25 03:55 04/10/25 03:55 04/10/25 03:55 Oxygen Delivery Method Room Air Weight: 206 lb 12.697 oz Body Mass Index (BMI) 36.6 Intake & Output: Intake and Output for Last 24 Hours 04/08/25 04/09/25 04/10/25 23:59 23:59 23:59 Intake Total 200 / 200 64.83 / 64.83 Balance 200 / 200 64.83 / 64.83 Lab / Micro Data Attestation: I reviewed the patient's lab results. 04/10/25 07:45 04/09/25 11:38 Labs: Laboratory Results - last 24 hr 04/09/25 11:38: WBC 9.4, RBC 3.55 L, Hgb 10.3 L, Hct 32.4 L, MCV 91.3, MCH 29.0, MCHC 31.8 L, RDW Std Deviation 45.7 H, RDW Coeff of Beatriz 13.5, Plt Count 369, MPV 10.8, Immature Gran % (Auto) 0.400, Neut % (Auto) 68.1, Lymph % (Auto) 22.8, [place] % (Auto) 6.6, Eos % (Auto) 1.5, Baso % (Auto) 0.6, Absolute Neuts (auto) 6.4, Absolute Lymphs (auto) 2.14, Nucleated RBC % 0, PT 12.5, INR 0.9, APTT 29.1, Sodium 137, Potassium 5.0, Chloride 103, Carbon Dioxide 16.2 L, Anion Gap 17 H, BUN 32 H, Creatinine 4.15 H, Estim Creat Clear Calc 15.11 L, Est GFR (MDRD) Non-Af 11 L, BUN/Creatinine Ratio 7.8 L, Glucose 104 H, Calcium 9.2, T roponin T High Sens 37 H D 04/09/25 13:51: Troponin T Hi Sens 2 Hr 40 H 04/09/25 14:56: Magnesium 1.5, Troponin T Hi Sens 4Hr 78 H* 04/10/25 00:12: APTT 99.1 H* 04/10/25 07:45: WBC 8.6, RBC 3.03 L, Hgb 8.9 L, Hct 27.7 L, MCV 91.4, MCH 29.4, MCHC 32.1, RDW Std Deviation 45.4 H, RDW Coeff of Beatriz 13.5, Plt Count 319, MPV 10.6 Rhythm Strip Rhythm Strip: Sinus Rhythm Rate: 58 Ectopy: None Cardiology Labs/Tests 04/09/25 11:38: WBC 9.4, RBC 3.55 L, Hgb 10.3 L, Hct 32.4 L, MCV 91.3, MCH 29.0, MCHC 31.8 L, Plt Count 369, MPV 10.8, Immature Gran % (Auto) 0.400, Neut % (Auto) 68.1, Lymph % (Auto) 22.8, [place] % (Auto) 6.6, Eos % (Auto) 1.5, Baso % (Auto) 0.6, Absolute Neuts (auto) 6.4, Nucleated RBC % 0, PT 12.5, INR 0.9, APTT 29.1, Sodium 137, Potassium 5.0, Chloride 103, Carbon Dioxide 16.2 L, Anion Gap 17 H, BUN 32 H, Creatinine 4.15 H, Est GFR (MDRD) Non-Af 11 L, BUN/Creatinine Ratio 7.8 L, Glucose 104 H, Calcium 9.2 04/09/25 14:56: Magnesium 1.5 04/10/25 00:12: APTT 99.1 H* 04/10/25 07:45: WBC 8.6, RBC 3.03 L, Hgb 8.9 L, Hct 27.7 L, MCV 91.4, MCH 29.4, MCHC 32.1, Plt Count 319, MPV 10.6 Rhythm: EKG: ECHO: Stress Test: Cardiac Cath: PCI: CT Surgery: Holter monitor: EPS: PPM: CXR: Chest CT Scan: Radiography Diagnostic Testing: Radiology Impression Chest X-Ray 04/09/25 12:10 IMPRESSION: No Acute Findings. Reading Location: [facility] Physical Exam Const alert and oriented x3 HEENT normocephalic Chest inspection of chest normal Resp normal respiratory effort and clear to auscultation bilaterally Cardio Rate: regular rate Rhythm: regular rhythm Heart Sounds: S1 normal and S2 normal; Negative for click, gallop or murmur Extremity no pedal edema Neuro Neuro Narrative: Alert and oriented x 3 Psych mental status grossly normal Assessment & Plan Assessment/Plan (1) Chest pain: QUALIFIERS: Chest pain type: unspecified Qualified Code(s): R07.9 - Chest pain, unspecified PLAN: Patient has had persistent chest pain since admission with no acute ECG changes. She does have minimal bump in her troponins going from 38, 41, 75. Patient will continue on anticoagulation and her current medical therapy. A pharmacologic nuclear stress test is scheduled for today to try and determine the extent of any ischemia. (2) Hypertension: QUALIFIERS: Hypertension type: primary hypertension Qualified Code(s): I10 - Essential (primary) hypertension PLAN: Blood pressure is well-controlled on her current meds. She does have a history of hypertension. (3) Chronic kidney disease: QUALIFIERS: Chronic kidney disease stage: stage 5 (GFR < 15), not on chronic dialysis Qualified Code(s): N18.5 - Chronic kidney disease, stage 5 PLAN: Patient is stage V chronic renal disease. She is scheduled for dialysis catheter placement April 2025. We are trying to avoid any contrast exposure in the interim. Will obtain nuclear pharmacologic stress test to try and determine extent of ischemia. Will also obtain limited echocardiogram to reevaluate LV function. (4) NSTEMI, initial episode of care: PLAN: Patient is enzymes were bumped from 38, 41, 75. However this is in the face of a creatinine of over 4. And this could be related to a type II demand type ischemic event. A pharmacologic nuclear stress test is scheduled for today to try and determine the extent of any ischemic burden. PLAN: Plan 1. Nuclear pharmacologic stress test today. 2. Limited echo today. 3. Further recommendations pending the outcome of those testing. Charges/Coding Visit Charges Inpatient E&M: 46393 Subs Hosp L2
[2025-04-10 08:08] LABS: Partial Thromboplast Time 34.7 Seconds (24.1-36.2)
[2025-04-10 08:29] LABS: Anion Gap 12 (5-15); BUN 33 mg/dL (4-19); BUN/Creat Ratio 7.5 RATIO (10-20); Calcium,Total 9.3 mg/dL (7.6-11.0); Carbon Dioxide 18.0 mmol/L (21.0-32.0); Chloride 106 mmol/L (98-108); Estimated Creatinine Clearance 14.54 ml/min (50-250); Glucose 90 mg/dL (70-99); Potassium 5.6 mmol/L (3.3-5.1)
[2025-04-10 08:41] VITALS: BP 121/66; PULSE 56; RESP 16; TEMP 36.8; O2SAT 96
[2025-04-10 11:53] VITALS: BP 116/54; PULSE 61; RESP 14; TEMP 36.6; O2SAT 95
[2025-04-10] MEDS: Magnesium Chloride 64 MG Delay Rel.Tablet 128 MG PO ×2 (12:03→22:18)
[2025-04-10] MEDS: Nitroglycerin Oint 1 INCH PACKET TD (12:06)
[2025-04-10] MEDS: Heparin Nomogram Adjustment 5,000 UNIT/ML VIAL IV (12:41)
[2025-04-10 15:09] VITALS: BP 109/59; PULSE 58; RESP 16; TEMP 36.6; O2SAT 95
--- NOTE | 2025-04-10 17:58 | STRESSREP ---
Stress Test Report Pharmacologic myocardial perfusion stress test. Date Test Performed: 04/10/2025 65-year-old lady with a history of abnormal cardiac enzymes. Resting EKG demonstrates normal sinus rhythm with a rate of 63 bpm. Resting blood pressure is 112/70 mmHg. 0.4 mg of regadenoson was infused per usual protocol followed by rapid intravenous saline flush injection. Continuous EKG monitoring was performed. The maximum heart rate was 109 bpm which was 69% of max impacted heart rate the maximum workload was 1 metabolic equivalent. At rest there were no ST or T wave changes noted to suggest ischemia and at peak infusion nonspecific ST changes were noted which did not meet the criteria for ischemia. No clinical angina is noted. The final blood pressure was 146/60mmHg. Myocardial perfusion protocol. 14.1 mCi of technetium 99m sestamibi was injected at rest. 0.4 mg of regadenoson was infused per usual protocol. At peak infusion 44.5 mCi of technetium 99m sestamibi was injected stress images were obtained stress and rest images were reconstructed and compared in the short axis vertical long and horizontal long axis. Gated images were also obtained. Perfusion SPECT analysis: Review of the stress images demonstrate normal uptake of tracer noted in all areas of the myocardium. There is reduced perfusion noted in the inferior wall but there is also a significant amount of GI uptake noted. The resting images demonstrate perfusion defect and GI uptake noted in this area and thus ischemia cannot be completely excluded. Gated SPECT analysis: The gated ejection fraction is 55%. Conclusion: Indeterminate pharmacologic myocardial perfusion stress test with no obvious ischemia noted but significant GI attenuation artifact noted in the inferior wall is present..
[2025-04-10 19:07] LABS: Partial Thromboplast Time 30.0 Seconds (24.1-36.2)
[2025-04-10 22:15] VITALS: BP 109/91; PULSE 67; RESP 18; TEMP 36.9; O2SAT 94
[2025-04-10] MEDS: Senna Tablet 1 TABLET PO (22:18)
[2025-04-11] VITALS (7 sets, daily range): BP systolic 102–118; BP diastolic 60–71; PULSE 59–65; RESP 14–18; TEMP 36.4–36.9; O2SAT 94–97
--- NOTE | 2025-04-11 08:16 | PN.CARD_ITS ---
Subjective Subjective Patient reports that she is feeling better today she denies any chest pain is sitting up in the side of the bed watching TV. Objective Data Vital Signs: Vital Signs Temp Pulse Resp BP Pulse Ox O2 Del Method 98.0 F 60 18 115/66 94 Room Air 04/11/25 03:34 04/11/25 03:34 04/11/25 03:34 04/11/25 03:34 04/11/25 03:34 04/11/25 03:34 Oxygen Delivery Method Room Air Weight: 206 lb 12.697 oz Body Mass Index (BMI) 36.6 Intake & Output: Intake and Output for Last 24 Hours 04/09/25 04/10/25 04/11/25 23:59 23:59 23:59 Intake Total 200 / 200 165.53 / 165.53 Balance 200 / 200 165.53 / 165.53 Lab / Micro Data Attestation: I reviewed the patient's lab results. 04/10/25 07:45 04/10/25 07:45 Labs: Laboratory Results - last 24 hr 04/10/25 07:45: Sodium 136, Potassium 5.6 H, Chloride 106, Carbon Dioxide 18.0 L , Anion Gap 12, BUN 33 H, Creatinine 4.31 H, Estim Creat Clear Calc 14.54 L, Est GFR (MDRD) Non-Af 11 L, BUN/Creatinine Ratio 7.5 L, Glucose 90, Calcium 9.3 04/10/25 18:43: APTT 30.0 Rhythm Strip Rhythm Strip: Sinus Rhythm Rate: 56 Ectopy: None Cardiology Labs/Tests 04/10/25 07:45: Sodium 136, Potassium 5.6 H, Chloride 106, Carbon Dioxide 18.0 L , Anion Gap 12, BUN 33 H, Creatinine 4.31 H, Est GFR (MDRD) Non-Af 11 L, B UN/Creatinine Ratio 7.5 L, Glucose 90, Calcium 9.3 04/10/25 18:43: APTT 30.0 Rhythm: EKG: ECHO: Stress Test: Cardiac Cath: PCI: CT Surgery: Holter monitor: EPS: PPM: CXR: Chest CT Scan: Radiography Diagnostic Testing: Radiology Impression Echocardiogram 04/09/25 20:11 Interpretation Summary Normal LV size. Mild concentric left ventricular hypertrophy. The left ventricular ejection fraction is 70 %. Mild to moderate segmental systolic dysfunction (see wall motion). Stage 1 diastolic dysfunction. Mild focal aortic valve calcification. Moderate aortic stenosis. Mean aortic valve gradient 26 mmHg. Ordering Physician: Wong Salmeron Referring Physician: Monster Freire Performed By: Anika Wick, RDCS, RVT Physical Exam Const alert and oriented x3 HEENT normocephalic Eyes EOMs intact bilaterally Neck no JVD Chest inspection of chest normal Resp normal respiratory effort and clear to auscultation bilaterally Cardio Rate: bradycardia Rhythm: regular rhythm Heart Sounds: S1 normal, S2 normal and murmur systolic II/ harsh holo left sternal border and sternal notch; Negative for click or gallop GI GI Narrative: Obese Extremity no pedal edema Neuro Neuro Narrative: Alert and oriented x 3 Psych mental status grossly normal Assessment & Plan Assessment/Plan (1) Chest pain: QUALIFIERS: Chest pain type: unspecified Qualified Code(s): R07.9 - Chest pain, unspecified PLAN: Patient's chest discomfort has resolved. She had minimal bump in her enzymes. Her nuclear pharmacologic stress test showed some inferior wall defect that was difficult to evaluate due to GI uptake. The echocardiogram was consistent with wall motion abnormality in the same area suggestive of potential coronary artery disease. The patient's aortic valve was noted to be moderately stenosed as well. LV function was otherwise adequately preserved. The plan would be to discharge the patient to home from a cardiovascular perspective. She should be reevaluated in the [facility] office the first week of April. We would like to perform a left heart catheterization on her sometime the or April either just before or just after her May 09 scheduled tunneled catheter placement for dialysis. In the interim we will maintain her on Imdur 60 mg every morning. Ranexa 500 mg twice daily. She is not a candidate for beta-sandra therapy given her blood pressure being on the low side and heart rate in the 50s. (2) Hypertension: QUALIFIERS: Hypertension type: primary hypertension Qualified Code(s): I10 - Essential (primary) hypertension PLAN: Blood pressure has been well-controlled on her current medical therapy. She can continue her same meds. (3) Chronic kidney disease: QUALIFIERS: Chronic kidney disease stage: stage 5 (GFR < 15), not on chronic dialysis Qualified Code(s): N18.5 - Chronic kidney disease, stage 5 PLAN: Patient's creatinine is stable around 4.1. She is scheduled for tunneled catheter placement May 09, 2025. (4) Aortic valve stenosis: QUALIFIERS: Cardiac valve disease etiology: nonrheumatic Q ualified Code(s): I35.0 - Nonrheumatic aortic (valve) stenosis PLAN: Patient's echocardiogram yesterday revealed a calcified aortic valve with a mean gradient of 26 mmHg. Her clinical exam is not consistent with critical aortic stenosis. She will be monitored clinically and we will measure the gradient at the time of the catheterization. PLAN: Plan 1. Continue Imdur and Ranexa. 2. Would avoid increasing Ranexa above 500 mg daily given her end-stage renal disease. 3. Patient be reevaluated in the [facility] office the first week of April 2025. 4. At the [facility] office evaluation we will make the final decision on the timing of the left heart catheterization with measurements of her aortic valve gradient and evaluation of her coronary anatomy. 5. From a cardiovascular perspective the patient could be discharged to home today. Charges/Coding Visit Charges Inpatient E&M: 10271 Subs Hosp L2
--- NOTE | 2025-04-11 08:34 | PN.HOSP_ITS ---
Reason for Visit Chief Complaint: Chest pain Objective Data Objective Data Vital Signs: Vital Signs Temp Pulse Resp BP Pulse Ox O2 Del Method 98.0 F 60 18 115/66 94 Room Air 04/11/25 03:34 04/11/25 03:34 04/11/25 03:34 04/11/25 03:34 04/11/25 03:34 04/11/25 03:34 Oxygen Delivery Method Room Air Weight: 206 lb 12.697 oz Body Mass Index (BMI) 36.6 Intake & Output: Intake and Output for Last 24 Hours 04/09/25 04/10/25 04/11/25 23:59 23:59 23:59 Intake Total 200 / 200 165.53 / 165.53 Balance 200 / 200 165.53 / 165.53 Lab / Micro Data 04/10/25 07:45 04/10/25 07:45 Labs: Laboratory Results - last 24 hr 04/10/25 18:43: APTT 30.0 Radiography Diagnostic Testing: Radiology Impression Echocardiogram 04/09/25 20:11 Interpretation Summary Normal LV size. Mild concentric left ventricular hypertrophy. The left ventricular ejection fraction is 70 %. Mild to moderate segmental systolic dysfunction (see wall motion). Stage 1 diastolic dysfunction. Mild focal aortic valve calcification. Moderate aortic stenosis. Mean aortic valve gradient 26 mmHg. Ordering Physician: Wong Salmeron Referring Physician: Monster Freire Performed By: Anika Wick, RDCS, RVT Rhythm Strip Rhythm Strip: Sinus Rhythm Rate: 56 Ectopy: None Physical Exam Narrative Chest pain has resolved. Physical General: Alert, Oriented x3, Cooperative HEENT: Atraumatic, PERRLA, EOMI, Normocephalic. Oral: No Gingival or Mucosal Lesions/ Ulcerations Neck: Supple, No JVD, Negative Carotid Bruits Chest wall/Lungs: Air entry diminished in bilateral lung bases. No crepitation/rhonchi Cardiovascular: Sinus rhythm normal S1,S2, systolic murmur Abdomen: Bowel Sounds Present, Soft, Non Tender, Non-Distended : No dysuria. No renal angle tenderness. No suprapubic tenderness. Extremities: No edema, Capillary Refill Less than 3 Seconds Skin: No rashes, No breakdown Musculoskeletal: No Tenderness to Palpation of Joints or Extremities Neurological: Cranial nerves II-XII grossly intact, DTR 2+/4. No acute focal neurological deficit. Psych/Mental Status: Normal Affect, Appropriate. Assessment & Plan Assessment/Plan (1) NSTEMI, initial episode of care: PLAN: Plan Patient is a 65-year-old male who presented to [facility] ED on 04/09/2025 with chest pain about 10 AM on day of admission with radiation to bilateral jaw, left arm and shoulder 12/02, nonexertional. Denies dyspnea 1. NSTEMI ? Admit under inpatient status to PCU. Cardiology consulted. Troponin trend 37 > 40 > 78. EKG with normal sinus rhythm and no ST changes. Continue heparin drip for now. Notably recent echo in December showed EF 65%, stage I diastolic dysfunction, no other concerning findings. Repeat limited echocardiogram ordered as well per cardiology. Appreciate further cardiology recommendations. 04/10 patient going for stress test. ECG NSR with no evidence of ST/T deviation. User Support Analyst Supervisor consulted and recommended stress test. Repeat echo also ordered. Heparin drip on hold 04/11: Pharmacological perfusion stress test reviewed with the patient. Indeterminate pharmacological myocardial perfusion with no obvious ischemia but GI attenuation artifact noted in the inferior wall therefore ischemia cannot be completely excluded. 2D echo reviewed EF 70%. Segmental systolic dysfunction inferobasal wall akinetic. Moderate aortic stenosis. Mean AV gradient 26 mmHg. Patient on Imdur and Ranexa. Discussed with club concierge And does not want to schedule heart cath during this hospital but after office visit in first week of April 2025 2. CKD stage V ? Creatinine 4.15 on admit, stable at baseline. Per patient, plan is for peritoneal dialysis catheter placement in mid April. Monitor daily BMP and urine output while inpatient. Continue home sodium bicarbonate tablets. 04/10: BUN/creatinine 33/4.31. 04/11: Potassium 5.6. Creatinine 4.31. Discussed with the day habilitation specialist. Patient does not want to take Kayexalate. Also with possible cardiac cath in future day habilitation specialist decided for inserting tunneled dialysis catheter because peritoneal dialysis catheter would not dialyze anesthetic agents appropriately. Family Readiness Support Assistant consulted. Discharge canceled Chronic medical conditions: ? Class II obesity: BMI 36 on admit. Complicates hospital course and care. ? Hypertension/hyperlipidemia: Mildly hypertensive on admit. Continue home amlodipine and Zetia. Has been unable to tolerate statins in the past. ? Hypothyroidism: Continue home Synthroid. ? GERD: Continue home PPI. ? Chronic anemia of renal disease: Hemoglobin 10.3 on admit, stable at baseline. 04/10: H&H 8.9/27.7%. Platelet count 319. Mild drop in hemoglobin does not meet criteria for acute anemia ? Seizure disorder: Continue home lacosamide. DVT prophylaxis: Not indicated, on heparin drip CODE STATUS: Full code, verified Echocardiogram 04/09/25 20:11 Interpretation Summary Normal LV size. Mild concentric left ventricular hypertrophy. The left ventricular ejection fraction is 70 %. Mild to moderate segmental systolic dysfunction (see wall motion). Stage 1 diastolic dysfunction. Mild focal aortic valve calcification. Moderate aortic stenosis. Mean aortic valve gradient 26 mmHg. Charges/Coding Visit Charges Inpatient E&M: 57892 Subs Hosp L2
[2025-04-11] MEDS: Magnesium Chloride 64 MG Delay Rel.Tablet 128 MG PO ×2 (09:01→22:53)
--- NOTE | 2025-04-11 11:53 | CON.PCM.RE_ITS ---
Assessment & Plan Assessment/Plan (1) Kidney disease, chronic, stage V (GFR under 15 ml/min): PLAN: CKD stage V with moderate uremic symptoms for a while. An episode of seizures earlier this year which was attributed to uremia. She was originally planned for PD catheter placement but this was deferred at least 2 times due to other medical events. Persistent hyperkalemia, initially responded to potassium binders but since the episode of diverticulitis, she has been hesitant to take potassium binders. Now admitted with unstable angina/non-ST elevation CT. She is originally scheduled for PD catheter placement in April, however general anesthesia would be contraindicated in the setting of recent cardiac event. I discussed with her about initially starting hemodialysis with a tunneled dialysis catheter, getting cardiac evaluation, subsequently switching to peritoneal dialysis when cardiac evaluation is complete. This will also help with the hyperkalemia which has been recurrent over the last couple of months. She is agreeable. Will place a consult for surgery for placement of tunneled dialysis catheter. Dialysis will be scheduled after. Will need outpatient dialysis unit placement. Cardiac workup including coronary angiogram as per cardiology. Once cardiac evaluation is completed, we may plan for PD catheter placement. Discussed with hospitalist. HPI Consult Data Date of Consult: 04/11/25 HPI Narrative Reason for Consultation: CKD 5 HPI Narrative: CARLOS A COYLE, is a 65 F who presents to the hospital with chest pain. Nephrology on consultation in view of CKD stage V. She is well-known to me from office, has known history of CKD stage V. We have been trying to get her to start dialysis but unable to due to several other events. Earlier this year she had seizures, this was attributed to uremia, she wanted to do peritoneal dialysis. We set up an appointment with surgery in February, this was canceled due to her being in the hospital. In the meantime she was admitted here with diverticulitis, she thinks that her potassium binders caused diverticulitis and has not been willing to take the potassium binders since then. No she is admitted with chest pain, mild elevation in troponins. Stress test with defect in the inferior wall territory. Coronary angiogram deferred due to advanced CKD. She did have moderate uremic symptoms even before this admission. She says chest pain is somewhat better today. [facility] Medical History Anemia in chronic kidney disease (CKD) Chronic kidney disease Gaspar's esophagus with dysplasia, unspecified Hypocalcemia High cholesterol GERD (gastroesophageal reflux disease) Hypothyroidism HTN (hypertension) Home Medications ?Medication ?Instructions ?Recorded ?Last Taken ?Type levothyroxine 50 mcg tablet 50 mcg PO DAILY thyroid 04/09/25 History acetaminophen 500 mg tablet 1,000 mg PO Q6H PRN pain 1 04/09/25 History amlodipine 10 mg tablet 10 mg PO DAILY blood pressur e 02/02/24 04/09/25 History ergocalciferol (vitamin D2) 1,250 1,250 mcg PO .COMPLE X supplement 02/02/24 03/29/25 History mcg (50,000 unit) capsule omeprazole 40 mg capsule,delayed 40 mg PO DAILY PRN he artburn 02/02/24 04/09/25 History release ondansetron 4 mg disintegrating 4 mg PO Q8H PRN nausea and vomiting 02/02/24 04/07/25 History tablet sodium bicarbonate 650 mg tablet 1,000 mg PO TID gerd 02/02/24 04/09/25 History ezetimibe 10 mg tablet 10 mg PO QDAY cholesterol 04/08/25 History lacosamide 100 mg tablet 100 mg PO BID seizlure #60 t abs 02/19/25 04/09/25 Rx tramadol 50 mg tablet 50 mg PO Q6H PRN pain 3 days #12 02/26/25 Unknown Rx tabs magnesium oxide 400 mg (241.3 mg 400 mg PO 4X/DAY supp lement 04/09/25 04/09/25 History magnesium) tablet isosorbide mononitrate 60 mg 60 mg PO DAILY 30 days #3 0 tabs 04/11/25 Unknown Rx tablet,extended release 24 hr ranolazine 500 mg tablet,extended 500 mg PO BID 30 day s #60 tabs 04/11/25 Unknown Rx release,12 hr Allergy/AdvReac Type Severity Reaction Status Date / Time codeine Allergy Shortness Verified 04/09/25 11:45 of breath hydromorphone (From Dilaudid) Allergy Shortness Verified 04/09/25 11:45 of breath morphine Allergy Shortness Verified 04/09/25 11:45 of breath moxifloxacin (From Avelox) Allergy Shortness Verified 04/09/25 11:45 of breath oxycodone (From Percocet) Allergy Shortness Verified 04/09/25 11:45 of breath Penicillins Allergy Shortness Verified 04/09/25 11:45 of breath [id number]-[id number] Reductase AdvReac Pain in Verified 04/09/25 11:45 Inhibitor joints Family History Mother , 71 Kidney disease Heart disease Hypertension Myocardial infarction CVA (cerebral vascular accident) Father , 61 Diabetes Kidney disease Surgical History H/O: hysterectomy Hx of cholecystectomy Social History household members: none current occupational status: employed current occupation: [employer] pets and animals: No Smoking Status: Current every day smoker tobacco type: cigarettes alcohol intake: never caffeine: Yes Type: carbonated beverages Number of servings: 1 and coffee Number of servings: 2 do you feel safe at home: Yes ROS ROS Narrative Negative except above Physical Exam Narrative Alert awake oriented x 3 no obvious distress no pallor no icterus no JVD s1s2 no murmurs lungs clear abdomen soft no organomegaly no edema Lab / Micro Data 04/10/25 07:45 04/10/25 07:45 Labs: Laboratory Results - last 24 hr 04/10/25 18:43: APTT 30.0 Rhythm Strip Rhythm Strip: Sinus Rhythm Rate: 56 Ectopy: None Imaging Radiology Impression Echocardiogram 04/09/25 20:11 Interpretation Summary Normal LV size. Mild concentric left ventricular hypertrophy. The left ventricular ejection fraction is 70 %. Mild to moderate segmental systolic dysfunction (see wall motion). Stage 1 diastolic dysfunction. Mild focal aortic valve calcification. Moderate aortic stenosis. Mean aortic valve gradient 26 mmHg. Ordering Physician: Wong Salmeron Referring Physician: Monster Freire Performed By: Anika Wick, KRIS, RVT
--- NOTE | 2025-04-11 17:09 | CON.PCM.SX_ITS ---
Assessment & Plan Assessment/Plan (1) Chronic kidney disease: QUALIFIERS: Chronic kidney disease stage: stage 5 (GFR < 15), not on chronic dialysis Qualified Code(s): N18.5 - Chronic kidney disease, stage 5 PLAN: Plan The patient is a 65-year-old female with chronic kidney disease who presented to [facility] with chest pains. She was eventually diagnosed with a non-ST elevation DC. She was on a heparin drip until earlier today. Nephrology is now recommending tunneled dialysis catheter placement as an alternative to peritoneal dialysis. It remains uncertain as far as how soon she will commence hemodialysis. Will make patient n.p.o. after midnight in case the OR availability permits placement tomorrow which may or may not be possible. This is based on the assumption that cardiology is okay with her proceeding even with a MAC anesthesia. If this is unable to be scheduled tomorrow, this could also be scheduled potentially as an outpatient in the very near future. Patient is agreement with this plan. She understands that she will be n.p.o. after midnight but this does not necessarily guarantee that surgery will be able to be performed tomorrow. Will update patient as soon as plans are finalized HPI Consult Data Date of Consult: 04/11/25 HPI Narrative HPI Narrative: CARLOS A COYLE, is a 65 F who was admitted to [facility] on 04/09/2025 with chest pain. She has multiple medical problems including chronic kidney disease but not on dialysis. She also has hypertension, hyperlipidemia, hypothyroidism and GERD. She presented with left-sided chest pain at rest as well as to her extremities and jaw. She was subsequently found to have a non-ST elevation DC. She was admitted and placed on a heparin drip. She was originally scheduled to have a peritoneal dialysis catheter placed sometime in mid April. Patient was originally scheduled to be discharged home today however nephrology consult was obtained which put a hold to her discharge as they are now wanting to pursue hemodialysis and a tunneled dialysis catheter was advised. It is not clear when she is supposed to begin with dialysis. Patient is currently off of heparin drip. Unfortunately she remains on a regular diet at present [facility] Medical History Anemia in chronic kidney disease (CKD) Chronic kidney disease Gaspar's esophagus with dysplasia, unspecified Hypocalcemia High cholesterol GERD (gastroesophageal reflux disease) Hypothyroidism HTN (hypertension) Home Medications ?Medication ?Instructions ?Recorded ?Last Taken ?Type levothyroxine 50 mcg tablet 50 mcg PO DAILY thyroid 04/09/25 History acetaminophen 500 mg tablet 1,000 mg PO Q6H PRN pain 1 04/09/25 History amlodipine 10 mg tablet 10 mg PO DAILY blood pressur e 02/02/24 04/09/25 History ergocalciferol (vitamin D2) 1,250 1,250 mcg PO .COMPLE X supplement 02/02/24 03/29/25 History mcg (50,000 unit) capsule omeprazole 40 mg capsule,delayed 40 mg PO DAILY PRN he artburn 02/02/24 04/09/25 History release ondansetron 4 mg disintegrating 4 mg PO Q8H PRN nausea and vomiting 02/02/24 04/07/25 History tablet sodium bicarbonate 650 mg tablet 1,000 mg PO TID gerd 02/02/24 04/09/25 History ezetimibe 10 mg tablet 10 mg PO QDAY cholesterol 04/08/25 History lacosamide 100 mg tablet 100 mg PO BID seizlure #60 t abs 02/19/25 04/09/25 Rx tramadol 50 mg tablet 50 mg PO Q6H PRN pain 3 days #12 02/26/25 Unknown Rx tabs magnesium oxide 400 mg (241.3 mg 400 mg PO 4X/DAY supp lement 04/09/25 04/09/25 History magnesium) tablet isosorbide mononitrate 60 mg 60 mg PO DAILY 30 days #3 0 tabs 04/11/25 Unknown Rx tablet,extended release 24 hr ranolazine 500 mg tablet,extended 500 mg PO BID 30 day s #60 tabs 04/11/25 Unknown Rx release,12 hr Allergy/AdvReac Type Severity Reaction Status Date / Time codeine Allergy Shortness Verified 04/09/25 11:45 of breath hydromorphone (From Dilaudid) Allergy Shortness Verified 04/09/25 11:45 of breath morphine Allergy Shortness Verified 04/09/25 11:45 of breath moxifloxacin (From Avelox) Allergy Shortness Verified 04/09/25 11:45 of breath oxycodone (From Percocet) Allergy Shortness Verified 04/09/25 11:45 of breath Penicillins Allergy Shortness Verified 04/09/25 11:45 of breath [id number] Reductase AdvReac Pain in Verified 04/09/25 11:45 Inhibitor joints Family History Mother , 71 Kidney disease Heart disease Hypertension Myocardial infarction CVA (cerebral vascular accident) Father , 61 Diabetes Kidney disease Surgical History H/O: hysterectomy Hx of cholecystectomy Social History household members: none current occupational status: employed current occupation: [employer] pets and animals: No Smoking Status: Current every day smoker tobacco type: cigarettes alcohol intake: never caffeine: Yes Type: carbonated beverages Number of servings: 1 and coffee Number of servings: 2 do you feel safe at home: Yes Physical Exam Const alert, oriented x3 and no apparent distress HEENT normocephalic Eyes PERRL and EOMs intact bilaterally Neck full ROM Resp normal respiratory effort GI normal to inspection, nondistended, normoactive bowel sounds Lab / Micro Data 04/10/25 07:45 04/10/25 07:45 Labs: Laboratory Results - last 24 hr 04/10/25 18:43: APTT 30.0 Rhythm Strip Rhythm Strip: Sinus Rhythm Rate: 56 Ectopy: None
[2025-04-11 18:17] LABS: Anion Gap 15 (5-15); BUN 34 mg/dL (4-19); BUN/Creat Ratio 7.0 RATIO (10-20); Calcium,Total 9.5 mg/dL (7.6-11.0); Carbon Dioxide 17.2 mmol/L (21.0-32.0); Chloride 105 mmol/L (98-108); Estimated Creatinine Clearance 12.85 ml/min (50-250); Glucose 110 mg/dL (70-99); Potassium 4.9 mmol/L (3.3-5.1)
--- NOTE | 2025-04-11 23:45 | NURSING ---
This RN to take over care for this patient at this time.
[2025-04-12 03:00] VITALS: PULSE 63
[2025-04-12 03:35] VITALS: PULSE 63; RESP 16
[2025-04-12 03:39] VITALS: BP 123/61; PULSE 63; RESP 16; TEMP 36.7; O2SAT 92
[2025-04-12 04:38] LABS: Hematocrit 25.9 % (37-47); Hemoglobin 8.2 g/dL (12.0-15.0); Immature Granulocytes Count 0.030 X10^3/uL (0.0-0.0); Mean Corp Hgb Conc 31.7 g/dL (32-36); Mean Corpuscular Volume 91.5 fL (81-99); Mean Platelet Vol. 10.7 fl (6.2-12.0); NRBC Flagged by Analyzer 0 % (0-5); Platelet Count 275 K/mm3 (150-450); RBC Distribution Width CV 13.4 % (11.6-14.6); RBC Distribution Width SD 45.0 fl (35.1-43.9); Red Blood Count 2.83 M/mm3 (4.2-5.4); White Blood Count 9.0 K/mm3 (4.4-11.0)
[2025-04-12 05:17] LABS: Anion Gap 16 (5-15); BUN 32 mg/dL (4-19); BUN/Creat Ratio 6.5 RATIO (10-20); Calcium,Total 9.3 mg/dL (7.6-11.0); Carbon Dioxide 17.3 mmol/L (21.0-32.0); Chloride 104 mmol/L (98-108); Estimated Creatinine Clearance 12.61 ml/min (50-250); Glucose 91 mg/dL (70-99); Potassium 4.5 mmol/L (3.3-5.1)
--- NOTE | 2025-04-12 08:43 | PCM.DC.SUM ---
Providers Date of Admission: 04/09/25 Date of Discharge: 04/11/25 Primary Care Physician: Dr. Monster Freire MD Consultations 04/09/25 17:17 Consult: Cardiology Routine Consulting Provider: Wong Salmeron Reason for Consult: NSTEMI EMERGENT Consult: No MD Notified: Yes Date Notified: 04/09/25 Time Notified: 17:53 Method of Notification: Text Reason For Visit: NSTEMI Diagnosis Discharge Diagnosis (1) NSTEMI, initial episode of care: Status: Acute Code(s): I21.4 - Non-ST elevation (NSTEMI) myocardial infarction Plan Patient is a 65-year-old male who presented to [facility] ED on 04/09/2025 with chest pain about 10 AM on day of admission with radiation to bilateral jaw, left arm and shoulder 12/02, nonexertional. Denies dyspnea 1. NSTEMI ? Admit under inpatient status to PCU. Cardiology consulted. Troponin trend 37 > 40 > 78. EKG with normal sinus rhythm and no ST changes. Continue heparin drip for now. Notably recent echo in December showed EF 65%, stage I diastolic dysfunction, no other concerning findings. Repeat limited echocardiogram ordered as well per cardiology. Appreciate further cardiology recommendations. 04/10 patient going for stress test. ECG NSR with no evidence of ST/T deviation. Christmas Tree Grader consulted and recommended stress test. Repeat echo also ordered. Heparin drip on hold 04/11: Pharmacological perfusion stress test reviewed with the patient. Indeterminate pharmacological myocardial perfusion with no obvious ischemia but GI attenuation artifact noted in the inferior wall therefore ischemia cannot be completely excluded. 2D echo reviewed EF 70%. Segmental systolic dysfunction inferobasal wall akinetic. Moderate aortic stenosis. Mean AV gradient 26 mmHg. Patient discharged on Ranexa and Imdur. Discussed with the carbon capture power plant manager who recommended to follow-up in [place] cardiology in first week of April. She will be scheduled cardiac cath based on the timing of peritoneal catheter which is scheduled on May 09, 2025. 2. CKD stage V ? Creatinine 4.15 on admit, stable at baseline. Per patient, plan is for peritoneal dialysis catheter placement in mid April. Monitor daily BMP and urine output while inpatient. Continue home sodium bicarbonate tablets. 04/10: BUN/creatinine 33/4.31. 04/11: Discussed with the critical care clinical nurse specialist Dr. Ceballos. She is supposed to follow-up with Devika Bolivar peritoneal catheter scheduled on May 09. Renal following. K5.6. Kayexalate 30 g ordered. Bicarb 18, anion gap 12. BUN/creatinine 33/1.31. Chronic medical conditions: ? Class II obesity: BMI 36 on admit. Complicates hospital course and care. ? Hypertension/hyperlipidemia: Mildly hypertensive on admit. Continue home amlodipine and Zetia. Has been unable to tolerate statins in the past. ? Hypothyroidism: Continue home Synthroid. ? GERD: Continue home PPI. ? Chronic anemia of renal disease: Hemoglobin 10.3 on admit, stable at baseline. 04/10: H&H 8.9/27.7%. Platelet count 319. Mild drop in hemoglobin does not meet criteria for acute anemia ? Seizure disorder: Continue home lacosamide. DVT prophylaxis: Not indicated, on heparin drip CODE STATUS: Full code, verified Discharge medication reconciliation done. Discharge follow-up instructions completed. Discharge process discussed with the patient and all questions were answered to patient's satisfaction. Follow with PCP in 1 to 2 weeks Total time spent, exact 35 minutes on discharge meds reconciliation, examination, coordination of care with nurses and ancillary staff, review of imaging and blood test and discussion with the patient on follow-up instructions. Echocardiogram 04/09/25 20:11 Interpretation Summary Normal LV size. Mild concentric left ventricular hypertrophy. The left ventricular ejection fraction is 70 %. Mild to moderate segmental systolic dysfunction (see wall motion). Stage 1 diastolic dysfunction. Mild focal aortic valve calcification. Moderate aortic stenosis. Mean aortic valve gradient 26 mmHg. Medications at Discharge Home Medications levothyroxine 50 mcg tablet 50 mcg PO DAILY thyroid 11/22/17 acetaminophen 500 mg tablet 1,000 mg PO Q6H PRN pain 02/02/24 amlodipine 10 mg tablet 10 mg PO DAILY blood pressure 02/02/24 ergocalciferol (vitamin D2) 1,250 mcg (50,000 unit) capsule 1,250 mcg PO .COMPLEX supplement 02/02/24 omeprazole 40 mg capsule,delayed release 40 mg PO DAILY PRN heartburn 02/02/24 ondansetron 4 mg disintegrating tablet 4 mg PO Q8H PRN nausea and vomiting 02/02/24 sodium bicarbonate 650 mg tablet 1,000 mg PO TID gerd 02/02/24 ezetimibe 10 mg tablet 10 mg PO QDAY cholesterol 02/07/25 lacosamide 100 mg tablet 100 mg PO BID seizlure #60 tabs 02/19/25 tramadol 50 mg tablet 50 mg PO Q6H PRN pain 3 days #12 tabs 02/26/25 magnesium oxide 400 mg (241.3 mg magnesium) tablet 400 mg PO 4X/DAY supplement 04/09/25 isosorbide mononitrate 60 mg tablet,extended release 24 hr 60 mg PO DAILY 30 days #30 tabs 04/11/25 ranolazine 500 mg tablet,extended release,12 hr 500 mg PO BID 30 days #60 tabs 04/11/25 Physical Exam Narrative Seen and examined Chest pain has resolved. Patient complained of chest pain felt like burning/heavy 10/10 intensity with radiation to carotids, it has gotten better currently at 2/10 intensity. Patient IV heparin drip. Going for stress test. Chronic constipation on magnesium supplement/laxative Physical General: Alert, Oriented x3, Cooperative HEENT: Atraumatic, PERRLA, EOMI, Normocephalic. Oral: No Gingival or Mucosal Lesions/ Ulcerations Neck: Supple, No JVD, Negative Carotid Bruits Chest wall/Lungs: Air entry diminished in bilateral lung bases. No crepitation/rhonchi Cardiovascular: Sinus rhythm normal S1,S2, systolic murmur, aortic stenosis Abdomen: Bowel Sounds Present, Soft, Non Tender, Non-Distended : No dysuria. No renal angle tenderness. No suprapubic tenderness. Extremities: No edema, Capillary Refill Less than 3 Seconds Skin: No rashes, No breakdown Musculoskeletal: No Tenderness to Palpation of Joints or Extremities Neurological: Cranial nerves II-XII grossly intact, DTR 2+/4. No acute focal neurological deficit. Psych/Mental Status: Flat affect Weight / BMI Weight Weight: 206 lb 12.697 oz Body Mass Index (BMI) 36.6 ABG / Lab / Microbiology Data 04/10/25 07:45 04/10/25 07:45 Laboratory: Laboratory Results - last 24 hr 04/10/25 18:43: APTT 30.0 Radiography Diagnostic Testing: Radiology Impression Echocardiogram 04/09/25 20:11 Interpretation Summary Normal LV size. Mild concentric left ventricular hypertrophy. The left ventricular ejection fraction is 70 %. Mild to moderate segmental systolic dysfunction (see wall motion). Stage 1 diastolic dysfunction. Mild focal aortic valve calcification. Moderate aortic stenosis. Mean aortic valve gradient 26 mmHg. Ordering Physician: Wong Salmeron Referring Physician: Monster Freire Performed By: Anika Wick, KRIS, RVT D/C Instructions Weight Bearing Status: Weight bearing as tolerated Call your doctor if you observe: Fever of 101 or Higher, Coldness, Increased Pain, Numbness or Tingling, Change in Color, Inability to urinate, Inability to have a bowel movement, Shortness of breath, Dizziness, Fainting spells, Swelling in the ankles, Chest pain, Prolonged hiccupping, Increased palpitations (irregular heartbeat) and Calf discomfort DC O2, CPAP, BIPAP Needs Home O2 Discharge instructions: No When: IN 2 WEEKS Meaningful Use Info Meaningful Use Meaningful Use Diagnoses (Choose all that apply): None applicable Discharge Plan Admission Admit Date/Time: 04/09/25 15:45 Primary Reason for Your Visit: Unstable angina/NSTEMI Attending Provider: Ranjeet Saldaña Primary Care Provider: Monster Freire Consulting Providers: Wong Salmeron; Luis Vaughan Discharge Orders/Prescriptions Prescriptions: New isosorbide mononitrate 60 mg Tablet Extended Release 24 Hr 60 mg PO DAILY 30 Days Qty: 30 2RF ranolazine 500 mg Tablet Extended Release 12 Hr 500 mg PO BID 30 Days Qty: 60 2RF Continued ezetimibe 10 mg tablet 10 mg PO QDAY levothyroxine 50 MCG tablet 50 mcg PO DAILY tramadol 50 mg tablet 50 mg PO Q6H PRN (Reason: pain) 3 Days Qty: 12 0RF magnesium oxide 400 mg (241.3 mg magnesium) tablet 400 mg PO 4X/DAY acetaminophen 500 mg tablet 1,000 mg PO Q6H PRN (Reason: pain) ergocalciferol (vitamin D2) 1,250 mcg (50,000 unit) capsule 1,250 mcg PO .COMPLEX Rx Instructions: 1,250 mcg orally EVERY OTHER TUESDAY; omeprazole 40 mg capsule,delayed release(DR/EC) 40 mg PO DAILY PRN (Reason: heartburn) amlodipine 10 mg tablet 10 mg PO DAILY ondansetron 4 mg tablet,disintegrating 4 mg PO Q8H PRN (Reason: nausea and vomiting) sodium bicarbonate 650 mg tablet 1,000 mg PO TID lacosamide 100 mg tablet 100 mg PO BID Qty: 60 2RF Referrals / Follow Up: Livia Ceballos MD [Med Staff - Consulting, Nephrology] - Within 1 Month Shaun Freedman MD [Med Staff - Active Staff, Cardiology] - Within 2 Weeks Referral Note: Follow-up in first week of April 2025 to schedule cardiac cath based on the timing of peritoneal dialysis on May 09 Monster Freire MD [Primary Care Provider, Medical] Disposition Disposition (needs filled in before D/C Order can be placed): Home, Self Care Charges/Coding Visit Charges Inpatient E&M: 55599 Disch Hosp >30min
[2025-04-12 10:00] VITALS: BP 120/60; PULSE 74; RESP 17; TEMP 36.8; O2SAT 96
[2025-04-12] MEDS: Magnesium Chloride 64 MG Delay Rel.Tablet 128 MG PO (10:04)
--- NOTE | 2025-04-12 11:07 | CASEMGMT ---
Patient updated by hospitalist that tunneled cath placement will be scheduled as an outpatient and scheduling will reach out to patient. ALCIDES BERNAL called Dr. Ceballos's medical insurance coding specialist and updated that patient is getting tunneled cath placed as an outpatient and will follow up with office to HD setup, medical insurance coding specialist voiced understanding. ALCIDES BERNAL called [facility] to update that patient will be setup from Dr. Ceballos's office for outpatient HD. Patient has order for discharge. ALCIDES BERNAL in to discuss needs at discharge. Patient aware of outpatient surgery setting up tunneled cath as outpatient and will be notified by scheduling. Patient also aware to follow up with Dr. Ceballos as outpatient for HD setup. Patient denied needs or help at discharge. Patient had no further questions or concerns.
--- NOTE | 2025-04-12 11:18 | PHA.DC_ITS ---
Pharmacy [facility] has performed discharge medication counseling for this patient. The patient was counseled on the following discharge medications and changes in medications for homegoing review. - Isosorbide mononitrate 60 mg tablet, Ranolazine 500 mg tablet The Reason for Use, instructions for use, and potential side effects were reviewed for all new medications. The patient's questions regarding all of their medications were answered. The patient was able to verbally demonstrate an understanding of their discharge medications. Medications at Discharge Home Medications levothyroxine 50 mcg tablet 50 mcg PO DAILY thyroid 11/22/17 acetaminophen 500 mg tablet 1,000 mg PO Q6H PRN pain 02/02/24 amlodipine 10 mg tablet 10 mg PO DAILY blood pressure 02/02/24 ergocalciferol (vitamin D2) 1,250 mcg (50,000 unit) capsule 1,250 mcg PO .COMPLEX supplement 02/02/24 omeprazole 40 mg capsule,delayed release 40 mg PO DAILY PRN heartburn 02/02/24 ondansetron 4 mg disintegrating tablet 4 mg PO Q8H PRN nausea and vomiting 02/02/24 sodium bicarbonate 650 mg tablet 1,000 mg PO TID gerd 02/02/24 ezetimibe 10 mg tablet 10 mg PO QDAY cholesterol 02/07/25 lacosamide 100 mg tablet 100 mg PO BID seizlure #60 tabs 02/19/25 tramadol 50 mg tablet 50 mg PO Q6H PRN pain 3 days #12 tabs 02/26/25 magnesium oxide 400 mg (241.3 mg magnesium) tablet 400 mg PO 4X/DAY supplement 04/09/25 isosorbide mononitrate 60 mg tablet,extended release 24 hr 60 mg PO DAILY 30 days #30 tabs 04/11/25 ranolazine 500 mg tablet,extended release,12 hr 500 mg PO BID 30 days #60 tabs 04/11/25
== END 2025-04-12 12:09 | disposition home or self-care (01) | DRG 281 ==
LOC: ED 16:13 → PCU 17:08
PROVIDERS: Admitting Provider Hospitalist; Emergency Provider Emergency Medicine; PCP Family Medicine; Visit Provider Internal Medicine
DX: I21.4 Non-ST elevation (NSTEMI) myocardial infarction (principal); I12.0 Hypertensive chronic kidney disease with stage 5 chronic kidney disease or end stage renal disease; N18.5 Chronic kidney disease, stage 5; D63.1 Anemia in chronic kidney disease; G40.909 Epilepsy, unspecified, not intractable, without status epilepticus; E03.9 Hypothyroidism, unspecified; I35.0 Nonrheumatic aortic (valve) stenosis; E66.812 Obesity, class 2; E78.5 Hyperlipidemia, unspecified; K21.9 Gastro-esophageal reflux disease without esophagitis; F17.210 Nicotine dependence, cigarettes, uncomplicated; K59.09 Other constipation; E87.5 Hyperkalemia; I25.110 Atherosclerotic heart disease of native coronary artery with unstable angina pectoris; Z79.890 Hormone replacement therapy; Z79.899 Other long term (current) drug therapy; Z90.49 Acquired absence of other specified parts of digestive tract; Z68.36 Body mass index [BMI] 36.0-36.9, adult; Z87.19 Personal history of other diseases of the digestive system
CPT/HCPCS: 36415; 71045; 78452; 80048; 83735; 84484; 85025; 85027; 85610; 85730; 93005; 93017; 93306; 99285; A9500; A4216; J2405; J2785